=== PATIENT | female | born 1935 | race Caucasian/White ===

== ENCOUNTER 2016-02-17 22:59 | Emergency (ER) | payer OTHER ==
[~2016-02-17] VITALS: Ht 154.9 cm; Wt 56.0 kg
[~2016-02-17 22:59] MED LIST: ASPI1TAB91 PO; ATOR10TA15 PO; CALC0.25 PO; CLON.2 PO; DOCU100C PO; FENO54TA PO; FERR325T PO; FLUO1TAB3 PO; FLUT1SPR5 EACH NARE; HYDR-3516 PO; LEVO100T5 PO; LOSA100T PO; LUTE20CA PO; METO25TA6 PO; MORP1TAB24 PO; MULT1TAB PO; NIFE90TA2 PO; OMEP40CA2 PO; PRED20 PO; PROC10003 SQ; SENN8.6T8 PO; SUCR1TAB PO; TRAD5TAB PO; VENTAER INH; ZOFR4TAB PO
[2016-02-17 23:02] VITALS: BP 205/104; PULSE 73; RESP 20; TEMP 98.1; O2SAT 95
[2016-02-18] MEDS ORDERED: SODIUM CHLORIDE 0.9% FLUSH 5 ML FLUSH IVF PRN (02:45)
[2016-02-18 03:17] LABS: BLOOD, URINE TRACE (NEG); COMMENT (UR) CULT NOT INDICATED; CULTURE IF INDICATED CULT NOT INDICATED; GLUCOSE,URINE NEG (NEG); HYALINE CAST, URINE 1 /lpf (RARE); KETONE, URINE NEG (NEG); NITRITE,URINE NEG (NEG); PH, URINE 5.5 (5.0-8.5); SQUAMOUS EPITHELIAL CELL URINE <1 /hpf (0-5); URINE COLOR LIGHT-YELLOW (YELLW/STRAW)
[2016-02-18 03:20] VITALS: RESP 16; O2SAT 98
[2016-02-18 03:28] LABS: APTT (PATIENT) 28.1 SEC (24.3-30.1)
[2016-02-18 04:28] LABS: AUTOMATED NEUTROPHIL # 5.6 TH/MM3 (1.8-7.7); BASOPHIL # 0.1 TH/MM3 (0-0.2); BASOPHIL % 0.6 % (0.0-2.0); EOSINOPHIL # 0.3 TH/MM3 (0-0.4); EOSINOPHIL % 3.5 % (0.0-4.0); HEMO FLAGS DIFF FINAL; LYMPH % 14.3 % (9.0-44.0); LYMPHOCYTE # 1.2 TH/MM3 (1.0-4.8); MEAN CELL VOLUME 93.2 FL (80.0-100.0); MEAN CORPUSCULAR HEMOGLOBIN 30.1 PG (27.0-34.0); MEAN CORPUSCULAR HGB CONC 32.3 % (32.0-36.0); MONO % 12.2 % (0.0-8.0); NEUT % 69.4 % (16.0-70.0); PLATELET COUNT 284 TH/MM3 (150-450); RED CELL DISTRIBUTION WIDTH 15.1 % (11.6-17.2); WHITE BLOOD COUNT 8.1 TH/MM3 (4.0-11.0)
[2016-02-18 04:40] LABS: ANION GAP 9 MEQ/L (5-15); AST (GOT) 25 U/L (15-37); BICARBONATE 25.8 MEQ/L (21.0-32.0); BLOOD UREA NITROGEN 22 MG/DL (7-18); CHLORIDE 98 MEQ/L (98-107); GLOMERULAR FILTRATION RATE 13 ML/MIN (>89); POTASSIUM 3.8 MEQ/L (3.5-5.1); SODIUM (NA) 133 MEQ/L (136-145)
[2016-02-18 04:49] LABS: ALKALINE PHOSPHATASE 85 U/L (45-117); ALT (GPT) 15 U/L (10-53); TOTAL BILIRUBIN ADULT 0.3 MG/DL (0.2-1.0)
--- NOTE | 2016-02-18 04:57 | PD ---
HPI Chief Complaint: GI Complaint Time Seen by Provider: 02:32 Travel History International Travel<30 days: No Contact w/Intl Traveler<30days: No Traveled to known affect area: No History of Present Illness HPI The patient is an 80 year old female who presents to the [facility] emergency department with a history of abdominal pain that she reports is "the worst pain that she's ever had." The pain is present in the right upper quadrant of the abdomen. On further questioning the patient reports that she did undergo a laparoscopic cholecystectomy on February 06 in the care of Dr. Brice felt well. She reports the pain is similar in location, however it is not exacerbated by eating like that pain worse. She reports that she's had this pain since the surgery. She reports that she last took morphine yesterday for the pain. She reports that her family is not giving her pain medication like they were previously as her has been reports that it makes her confused. She denies having any nausea, vomiting, or diarrhea associated with this. She reports that she last moved her bowels 2 days ago. She denies having any blood in her stool or black or tarry stools. The patient reports that she does continue to produce a small amount of urine, however since June 2015 she has been on hemodialysis. The patient reports that she last had hemodialysis on Wednesday. The patient denies any recent fevers cough, congestion, neck pain, chest pain, shortness of breath, vomiting, diarrhea, urinary symptoms, or neurologic symptoms. [facility] Past Medical History Narrative Medical The patient's past medical history is significant for hypertension, hyperlipidemia, type 2 diabetes mellitus, COPD, congestive heart failure, end- stage renal disease, acid reflux, depression, hypothyroid disorder. Hx Anticoagulant Therapy: Yes Asthma: No Blood Disorders: No Anxiety: No Depression: Yes Heart Rhythm Problems: No Cancer: No Cardiovascular Problems: Yes (HTN, CHF) High Cholesterol: Yes Chest Pain: No Congestive Heart Failure: Yes COPD: Yes Diabetes: Yes Patient Takes Glucophage: Yes Dialysis: Yes (, , ) Diminished Hearing: No Diverticulitis: Yes Endocrine: Yes Gastrointestinal Disorders: Yes (ACID REFLUX) Genitourinary: Yes (ESRD) Hepatitis: No Hiatal Hernia: No Hypertension: Yes Immune Disorder: No Musculoskeletal: Yes (CARPAL TUNNEL LT.; ARTHRITIS) Neurologic: No Psychiatric: Yes (DEPRESSION) Reproductive: No Respiratory: Yes (COPD) Renal Failure: Yes (ESRD) Sleep Apnea: No Thyroid Disease: Yes (HYPOTHYROIDISM) Triglycerides - High: Yes Tetanus Vaccination: Unknown Influenza Vaccination: Yes : 5 Para: 5 Miscarriage: 0 : 0 Tubal Ligation: Yes Past Surgical History Narrative Surgical The patient's past surgical history is significant for colon resection and hernia repair, lysis of adhesions, AV fistula placement left upper extremity. The patient currently has vas cath access in place in the right upper chest for dialysis access. Abdominal Surgery: Yes (COLON RESECTION, HERNIA REPAIR, LYSIS OF ADHESIONS) AICD: No Appendectomy: Yes Arteriovenous Shunt: Yes (R CHEST ) Body Medical Devices: TITANIUM IN COLON ? Cholecystectomy: Yes Joint Replacement: No Pacemaker: No Thoracic Surgery: Yes (lt fistula ) Other Surgery: Yes (L WRIST ) Social History Alcohol Use: Yes (rare) Tobacco Use: No Substance Use: No Allergies-Medications (Allergen,Severity, Reaction): Coded Allergies: Contrast Media (Verified Allergy, Severe, Hives, 02/17/16) Flagyl (Verified Allergy, Severe, DIFFICULTY BREATHING, EXTREME NAUSEA, VOMITING, 02/17/16) Ativan (Verified Allergy, Intermediate, STOMACH UPSET, 02/17/16) Codeine (Verified Allergy, Intermediate, UPSET STOMACH, 02/17/16) Darvocet-N 100 (Verified Allergy, Intermediate, UPSET STOMACH, 02/17/16) Darvon (Verified Allergy, Intermediate, UPSET STOMACH, 02/17/16) Lopid (Verified Allergy, Intermediate, STOMACH UPSET, 02/17/16) Lovastatin (Verified Allergy, Intermediate, STOMACH UPSET, 02/17/16) Questran (Verified Allergy, Intermediate, STOMACH UPSET, 02/17/16) Welchol (Verified Allergy, Intermediate, STOMACH UPSET, 02/17/16) Reported Meds & Prescriptions Reported Meds & Active Scripts Active Zofran (Ondansetron HCl) 4 Mg Tab 4 Mg PO Q8HR PRN Docusate Sodium 100 Mg Cap 100 Mg PO BID Hydrocodone-Acetaminophen 5-325 mg Tab 1 Tab PO Q4H PRN Hydrocodone-Acetaminophen 5-325 mg Tab 1 Tab PO Q4H PRN Reported Morphine ER (Morphine Sulfate) 15 Mg Tab 15 Mg PO Q8H PRN Nifedipine ER (Nifedipine) 90 Mg Tab 90 Mg PO DAILY Omeprazole 40 Mg Cap 40 Mg PO DAILY Sucralfate 1 Gm Tab 1 Gm PO TID on empty stomach Prednisone 20 Mg Tab 20 Mg PO DAILY Losartan (Losartan Potassium) 100 Mg Tab 100 Mg PO DAILY Levothyroxine (Levothyroxine Sodium) 100 Mcg Tab 100 Mcg PO DAILY Tradjenta (Linagliptin) 5 Mg Tab 5 Mg PO DAILY Flonase Allergy Relief Nasal [place] (Fluticasone Nasal [place]) 50 Mcg/Act [place] 2 [place] EACH NARE DAILY PRN Centrum Silver Adult 50+ (Multiple Vitamins W/ Minerals) 1 Tab Tab 1 Tab PO AC LUNCH Senna S (Sennosides-Docusate Sodium) 8.6-50 Mg Tab 4 Tab PO HS Lutein 20 Mg Cap 20 Mg PO DAILY Ferrous Sulfate 325 Mg Tab 325 Mg PO BID Procrit Inj (Epoetin Rohan) 10,000 Unit/Ml Inj 10,000 Units SQ 3XWEEK Fluoxetine (Fluoxetine HCl) 20 Mg Tab 20 Mg PO HS Fenofibrate 54 Mg Tab 54 Mg PO AC LUNCH Catapres (Clonidine) 0.2 Mg Tab 0.2 Mg PO Q8HR Atorvastatin (Atorvastatin Calcium) 10 Mg Tab 10 Mg PO HS Calcitriol 0.25 Mcg Cap 0.25 Mcg PO DAILY Aspirin Adult Low Strength (Aspirin) 81 Mg Tabdr 81 Mg PO DAILY Ventolin Hfa 18 GM Inh (Albuterol Sulfate) 90 Mcg/Act Aer 2 Puff INH Q4H PRN Zofran (Ondansetron HCl) 4 Mg Tab 4 Mg PO Q8HR PRN Metoprolol Succinate ER 24 HR (Metoprolol Succinate) 25 Mg Tab 25 Mg PO DAILY Review of Systems Except as stated in HPI: all other systems reviewed are Neg General / Constitutional: No: Fever Eyes: No: Visual changes HENT: No: Headaches Cardiovascular: No: Chest Pain or Discomfort Respiratory: No: Shortness of Breath Gastrointestinal: Positive: Abdominal Pain, No: Nausea, Vomiting, Diarrhea, Constipation, Changes in Bowel Habits, Indigestion, Loss of Appetite Genitourinary: No: Dysuria Musculoskeletal: No: Pain Skin: No Rash Neurologic: No: Weakness Psychiatric: No: Depression Endocrine: No: Polydipsia Hematologic/Lymphatic: No: Easy Bruising Physical Exam Narrative General: The patient is a well-developed well-nourished female in no acute distress. Head and Neck exam: Head is normocephalic atraumatic. Eyes: Pupils are equal round and reactive to light. Nose: Midline septum with pink mucous membranes Mouth: Dentition unremarkable. Moist mucus membranes. Posterior oropharynx is not erythematous. No tonsillar hypertrophy. Uvula midline. Airway patent. Neck: No palpable lymphadenopathy. No nuchal rigidity. No thyromegaly. Cardiovascular: On examination of the right upper chest wall the patient has a Vas-Cath in place that appears to be in good repair with a clean, dry, and intact bandage in place. The patient has no surrounding erythema or drainage from the site. No tenderness or swelling noted. Regular rate and rhythm without murmurs, gallops, or rubs. Lungs: Clear to auscultation bilaterally. No wheezes, rhonchi, or rales. Abdomen: Soft, with minimal discomfort on palpation in the right upper quadrant of the abdomen, at the very lateral aspect, no other tenderness on palpation of the abdomen and the other 3 quadrants or midepigastric area. No guarding, rebound, or rigidity. Negative [place] sign. The patient's incisions from laparoscopic surgery appear to be healing well without any signs of infection. Extremities: No clubbing, cyanosis, or edema. 2+ pulses in all 4 extremities. No calf tenderness on palpation. Back: No spinous process tenderness to palpation. No costovertebral angle tenderness to palpation. Neurologic Exam: Non-focal. Skin Exam: No rash noted. Intact skin that is warm and dry. Data Data Last Documented VS Vital Signs Date Time Temp Pulse Resp B/P Pulse Ox O2 Delivery O2 Flow Rate FiO2 02/18/16 03:20 16 98 Room Air 02/17/16 23:02 98.1 73 205/104 Orders Complete Blood Count With Diff (02/18/16 02:36) Comprehensive Metabolic Panel (02/18/16 02:36) Lipase (02/18/16 02:36) Lactic Acid (02/18/16 02:36) Prothrombin Time / Inr (Pt) (02/18/16 02:36) Act Partial Throm Time (Ptt) (02/18/16 02:36) Urinalysis - C+S If Indicated (02/18/16 02:36) Iv Access Insert/Monitor (02/18/16 02:36) Ecg Monitoring (02/18/16 02:36) Oximetry (02/18/16 02:36) Sodium Chloride 0.9% Flush (Ns Flush) (02/18/16 02:45) Electrocardiogram (02/18/16 02:36) Ct Abd/Pel W/O Iv Contrast (02/18/16 03:35) Ondansetron Inj (Zofran Inj) (02/18/16 06:00) Acetamin-Hydrocod 325-5 Mg ([place] 5-325 (02/18/16 06:00) Labs Laboratory Tests Test 02/18/16 02/18/16 02:55 04:10 Prothrombin Time 11.0 SEC Prothromb Time International 1.0 RATIO Ratio Activated Partial 28.1 SEC Thromboplast Time Urine Color LIGHT-YELLOW Urine Turbidity CLEAR Urine pH 5.5 Urine Specific [place] 1.004 Urine Protein 30 mg/dL Urine Glucose (UA) NEG mg/dL Urine Ketones NEG mg/dL Urine Occult Blood TRACE Urine Nitrite NEG Urine Bilirubin NEG Urine Urobilinogen LESS THAN 2.0 MG/DL Urine Leukocyte Esterase TRACE Urine RBC 1 /hpf Urine WBC 1 /hpf Urine Squamous Epithelial <1 /hpf Cells Urine Hyaline Casts 1 /lpf Microscopic Urinalysis Comment CULT NOT INDICATED Lactic Acid Level 0.4 mmol/L White Blood Count 8.1 TH/MM3 Red Blood Count 3.00 MIL/MM3 Hemoglobin 9.0 GM/DL Hematocrit 28.0 % Mean Corpuscular Volume 93.2 FL Mean Corpuscular Hemoglobin 30.1 PG Mean Corpuscular Hemoglobin 32.3 % Concent Red Cell Distribution Width 15.1 % Platelet Count 284 TH/MM3 Mean Platelet Volume 7.4 FL Neutrophils (%) (Auto) 69.4 % Lymphocytes (%) (Auto) 14.3 % Monocytes (%) (Auto) 12.2 % Eosinophils (%) (Auto) 3.5 % Basophils (%) (Auto) 0.6 % Neutrophils # (Auto) 5.6 TH/MM3 Lymphocytes # (Auto) 1.2 TH/MM3 Monocytes # (Auto) 1.0 TH/MM3 Eosinophils # (Auto) 0.3 TH/MM3 Basophils # (Auto) 0.1 TH/MM3 CBC Comment DIFF FINAL Differential Comment Sodium Level 133 MEQ/L Potassium Level 3.8 MEQ/L Chloride Level 98 MEQ/L Carbon Dioxide Level 25.8 MEQ/L Anion Gap 9 MEQ/L Blood Urea Nitrogen 22 MG/DL Creatinine 3.48 MG/DL Estimat Glomerular Filtration 13 ML/MIN Rate Random Glucose 68 MG/DL Calcium Level 8.7 MG/DL Total Bilirubin 0.3 MG/DL Aspartate Amino Transf 25 U/L (AST/SGOT) Alanine Aminotransferase 15 U/L (ALT/SGPT) Alkaline Phosphatase 85 U/L Total Protein 5.9 GM/DL Albumin 2.5 GM/DL Lipase 141 U/L MDM Medical Decision Making Medical Screen Exam Complete: Yes Emergency Medical Condition: Yes Medical Record Reviewed: Yes Differential Diagnosis Postop abscess formation, versus ileus, versus pancreatitis, versus pyelonephritis, versus kidney stone Narrative Course During the course of the patients emergency department visit, the patients history, examination, and differential diagnosis were reviewed with the patient. The patient had IV access obtained and blood work sent for analysis. The patient was placed on a monitor worker with oximetry and blood pressure monitoring. The patient was provided Lortab for pain. after CT scan of the abdomen and pelvis showed no acute abnormality, Zofran for nausea. The patients laboratory studies were reviewed and remarkable for a white count of 8.1, hemoglobin 9.0 and a patient with a history of anemia related to chronic renal failure, platelets 284, monocytes 12.2, PT PTT unremarkable, CMP is marked bulbar sodium of 133, BUN 22, creatinine 3.48, glucose 68, lactic acid 0.4, lipase 141, PT PTT unremarkable. Urinalysis is unremarkable. 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 The patient's results were discussed with her and her family. The patient was resting comfortably. The patient was instructed regarding the importance of following up with her surgeon. She reports that she has a follow-up appointment scheduled in a week. The patient's family reports that she gets confused on morphine, therefore this was discontinued for her pain. She has been on Lortab in the past and tolerated this well. She was given a short supply of this for pain. She was also given Zofran for nausea. The patient is resting comfortably and feels better, is alert and in no distress. The patients results and examination findings were discussed with her and her . The repeat examination is unremarkable and benign. The history, exam, diagnostic testing, and current condition do not suggest any significant pathology to warrant further testing, continued ED treatment, admission, or surgical evaluation at this point. The vital signs have been stable. The patient does not have uncontrollable pain, intractable vomiting, or other significant symptoms. The patient's condition is stable and appropriate for discharge. The patient will pursue further outpatient evaluation with a primary care physician or other designated or consulting physician as indicated in the discharge instructions. The patient expressed understanding and was agreeable with this plan. Diagnosis Primary Impression: Abdominal pain Qualified Code: R10.11 - Right upper quadrant abdominal pain Referrals: Alton Conde MD 1 week Primary Care Physician Patient Instructions: Abdominal Pain (ED), General Instructions Med/Other Pt SpecificInfo: Prescription(s) given Scripts Ondansetron Odt (Zofran Odt)4 Mg Tab4 Mg SL Q6HR PRN (Nausea/Vomiting) #7 TAB Ref 0 Prov:Kimberlyn Smith MD 02/18/16 Hydrocodone-Acetaminophen (Lortab)5-325 Mg Tab1 Tab PO Q6H PRN (PAIN) #12 TAB Ref 0 Prov:Kimberlyn Smith MD 02/18/16 Disposition: 01 DISCHARGE HOME Condition: Stable Kimberlyn Smith MD Feb 18, 2016 04:57
--- NOTE | 2016-02-18 05:45 | RADRPT ---
EXAM DATE/TIME: 02/18/2016 04:01 [place] COMPARISON: CT ABDOMEN & PELVIS W/O CONTRAST, January 28, 2016, 11:24. INDICATIONS : Right flank and upper quadrant abdominal pain; status-post lap cholecystectomy 02/07/2016. ORAL CONTRAST: No oral contrast ingested. RADIATION DOSE: 7.77 CTDIvol (mGy) MEDICAL HISTORY : Hypertension. Cardiovascular disease Gastroesophageal reflux disease.Diverticulitis; hernia; renal fa ilure; diabetes. SURGICAL HISTORY : Appendectomy. Cholecystectomy.Colon resection.Tubal ligation. ENCOUNTER: Initial ACUITY: 1 week PAIN SCALE: 10/10 LOCATION: Right upper quadrant flank abdomen/pelvis TECHNIQUE: Volumetric scanning of the abdomen and pelvis was performed. Using automated exposure control and ad justment of the mA and/or kV according to patient size, radiation dose was kept as low as reasonably achievable to obtain optimal diagnostic quality images. FINDINGS: LOWER LUNGS: Tiny bilateral pleural effusions. Moderate cardiomegaly with tiny pericardial effusion. LIVER: Since the previous examination there has been cholecystectomy. No fluid collection or hematoma observ ed. The liver is unremarkable. SPLEEN: Normal size without lesion. A 1.6 cm saccular aneurysm is seen involving the splenic artery. This is stable. PANCREAS: Within normal limits. KIDNEYS: Normal in size and shape. There is no mass, stone, or hydronephrosis. ADRENAL GLANDS: Within normal limits. VASCULAR: Diffuse calcified plaque throughout the aorta and major branches. No aneurysmal change observed. BOWEL/MESENTERY: Multiple diverticular seen involving the duodenum. The stomach, small bowel, and colon are otherwise unremarkable on this unopacified study. Trace amount of ascitic fluid is seen within the left paracol ic gutter. ABDOMINAL WALL: Within normal limits. RETROPERITONEUM: There is no lymphadenopathy. BLADDER: No wall thickening or mass. REPRODUCTIVE: Within normal limits. INGUINAL: There is no lymphadenopathy or hernia. MUSCULOSKELETAL: Scoliotic and degenerative spine. Prior cement augmentation at L1. CONCLUSION: 1. Interval cholecystectomy. No abscess or fluid collection. 2. Tiny bilateral pleural effusions. 3. Cardiomegaly. 4. Stable splenic artery aneurysm measuring 1.6 cm. Shashi Olson Jr., MD on February 18, 2016 at 5:38 Board Certified Radiologist. This report was verified electronically.
[2016-02-18] MEDS ORDERED: ONDANSETRON HCL 4 MG/2 ML VIAL IV ONE (06:00)
[2016-02-18] MEDS ORDERED: ACETAMINOPHEN/HYDROcodone 325 MG/5 MG TAB PO ONE (06:00)
[2016-02-18] MEDS ORDERED: ZOFR4TAB3 SL (07:07)
[2016-02-18] MEDS ORDERED: HYDR-3533 PO (07:07)
== END 2016-02-18 07:24 | disposition home or self-care (01) ==
LOC: NEPE 22:59
DX: R10.11 Right upper quadrant pain (principal); E11.9 Type 2 diabetes mellitus without complications; I12.0 Hypertensive chronic kidney disease with stage 5 chronic kidney disease or end stage renal disease; J44.9 Chronic obstructive pulmonary disease, unspecified; E03.9 Hypothyroidism, unspecified; K21.9 Gastro-esophageal reflux disease without esophagitis
CPT/HCPCS: 74176; 80053; 81001; 83605; 83690; 85025; 85610; 85730; 96374; 99284; J2405

== ENCOUNTER 2016-02-18 10:47 | Emergency (ER) | payer OTHER ==
[~2016-02-18] VITALS: Ht 154.9 cm; Wt 50.0 kg
[~2016-02-18 10:47] MED LIST changes: +HYDR-3533 PO; +ZOFR4TAB3 SL
[2016-02-18 10:49] VITALS: BP 235/97; PULSE 87; RESP 14; TEMP 98.2; O2SAT 95
--- NOTE | 2016-02-18 11:57 | PD ---
HPI Chief Complaint: Pain: Acute or Chronic Time Seen by Provider: 11:34 Travel History International Travel<30 days: No Contact w/Intl Traveler<30days: No Traveled to known affect area: No History of Present Illness HPI This patient has chronic right upper quadrant abdominal pain. She's had it almost 2 years on a daily basis. She had a cholecystectomy February 06 and is frustrated that her pain is no better. Not any worse than it was before the surgery. She denies fever. She doesn't want to eat much because she gets nauseous when she eats. She was seen here this morning and left chest 4 hours ago from the emergency department after extensive workup including labs and CT of abdomen and pelvis which was negative for acute problem. She went to dialysis and part of the way through dialysis the patient left to come back here. The patient tells me that her surgeon's nurse called dialysis and wanted her to get sent back here but the patient does not know any details. This sounds a little hard to believe but I'm going to call the surgeon to see if he knows anything about this. Symptoms severity is moderate and chronic and duration is about 2 years. No alleviating factors. PFSH Past Medical History Hx Anticoagulant Therapy: Yes Asthma: No Blood Disorders: No Anxiety: No Depression: Yes Heart Rhythm Problems: No Cancer: No Cardiovascular Problems: Yes (HTN, CHF) High Cholesterol: Yes Chest Pain: No Congestive Heart Failure: Yes COPD: Yes Diabetes: Yes Dialysis: Yes (, , sa) Diminished Hearing: No Diverticulitis: Yes Endocrine: Yes Gastrointestinal Disorders: Yes (ACID REFLUX) Genitourinary: Yes (ESRD) Hepatitis: No Hiatal Hernia: No Hypertension: Yes Immune Disorder: No Musculoskeletal: Yes (CARPAL TUNNEL LT.; ARTHRITIS) Neurologic: No Psychiatric: Yes (DEPRESSION) Reproductive: No Respiratory: Yes (COPD) Renal Failure: Yes (ESRD) Sleep Apnea: No Thyroid Disease: Yes (HYPOTHYROIDISM) Triglycerides - High: Yes : 5 Para: 5 Miscarriage: 0 : 0 Tubal Ligation: Yes Past Surgical History Abdominal Surgery: Yes (COLON RESECTION, HERNIA REPAIR, LYSIS OF ADHESIONS) AICD: No Appendectomy: Yes Arteriovenous Shunt: Yes (R CHEST ) Body Medical Devices: TITANIUM IN COLON ? Cholecystectomy: Yes Joint Replacement: No Pacemaker: No Thoracic Surgery: Yes (lt fistula ) Other Surgery: Yes (L WRIST ) Social History Alcohol Use: Yes (rare) Tobacco Use: No Substance Use: No Allergies-Medications (Allergen,Severity, Reaction): Coded Allergies: Contrast Media (Verified Allergy, Severe, Hives, 02/18/16) Flagyl (Verified Allergy, Severe, DIFFICULTY BREATHING, EXTREME NAUSEA, VOMITING, 02/18/16) Ativan (Verified Allergy, Intermediate, STOMACH UPSET, 02/18/16) Codeine (Verified Allergy, Intermediate, UPSET STOMACH, 02/18/16) Darvocet-N 100 (Verified Allergy, Intermediate, UPSET STOMACH, 02/18/16) Darvon (Verified Allergy, Intermediate, UPSET STOMACH, 02/18/16) Lopid (Verified Allergy, Intermediate, STOMACH UPSET, 02/18/16) Lovastatin (Verified Allergy, Intermediate, STOMACH UPSET, 02/18/16) Questran (Verified Allergy, Intermediate, STOMACH UPSET, 02/18/16) Welchol (Verified Allergy, Intermediate, STOMACH UPSET, 02/18/16) Reported Meds & Prescriptions Reported Meds & Active Scripts Active Zofran Odt (Ondansetron Odt) 4 Mg Tab 4 Mg SL Q6HR PRN Hydrocodone-Acetaminophen 5-325 mg Tab 1 Tab PO Q4H PRN Reported Morphine ER (Morphine Sulfate) 15 Mg Tab 15 Mg PO Q8H PRN Nifedipine ER (Nifedipine) 90 Mg Tab 90 Mg PO DAILY Omeprazole 40 Mg Cap 40 Mg PO DAILY Sucralfate 1 Gm Tab 1 Gm PO TID on empty stomach Prednisone 20 Mg Tab 20 Mg PO DAILY Losartan (Losartan Potassium) 100 Mg Tab 100 Mg PO DAILY Levothyroxine (Levothyroxine Sodium) 100 Mcg Tab 100 Mcg PO DAILY Tradjenta (Linagliptin) 5 Mg Tab 5 Mg PO DAILY Flonase Allergy Relief Nasal [place] (Fluticasone Nasal [place]) 50 Mcg/Act [place] 2 [place] EACH NARE DAILY PRN Centrum Silver Adult 50+ (Multiple Vitamins W/ Minerals) 1 Tab Tab 1 Tab PO AC LUNCH Senna S (Sennosides-Docusate Sodium) 8.6-50 Mg Tab 4 Tab PO HS Lutein 20 Mg Cap 20 Mg PO DAILY Ferrous Sulfate 325 Mg Tab 325 Mg PO BID Procrit Inj (Epoetin Rohan) 10,000 Unit/Ml Inj 10,000 Units SQ 3XWEEK Fluoxetine (Fluoxetine HCl) 20 Mg Tab 20 Mg PO HS Fenofibrate 54 Mg Tab 54 Mg PO AC LUNCH Catapres (Clonidine) 0.2 Mg Tab 0.2 Mg PO Q8HR Atorvastatin (Atorvastatin Calcium) 10 Mg Tab 10 Mg PO HS Calcitriol 0.25 Mcg Cap 0.25 Mcg PO DAILY Aspirin Adult Low Strength (Aspirin) 81 Mg Tabdr 81 Mg PO DAILY Ventolin Hfa 18 GM Inh (Albuterol Sulfate) 90 Mcg/Act Aer 2 Puff INH Q4H PRN Metoprolol Succinate ER 24 HR (Metoprolol Succinate) 25 Mg Tab 25 Mg PO DAILY Review of Systems General / Constitutional: No: Fever Eyes: No: Visual changes HENT: No: Headaches Cardiovascular: No: Chest Pain or Discomfort Respiratory: No: Shortness of Breath Gastrointestinal: Positive: Nausea, Abdominal Pain Genitourinary: No: Dysuria Musculoskeletal: No: Pain Skin: No Rash Neurologic: No: Weakness Psychiatric: No: Depression Endocrine: No: Polydipsia Hematologic/Lymphatic: No: Easy Bruising Physical Exam Narrative GENERAL: Well-nourished, well-developed patient in no apparent distress. SKIN: Warm and dry. HEAD: Atraumatic. Normocephalic. EYES: Pupils equal and round. No scleral icterus. No injection or drainage. ENT: No nasal bleeding or discharge. Mucous membranes pink and moist. NECK: Trachea midline. No JVD. CARDIOVASCULAR: Regular rate and rhythm. No murmur appreciated. RESPIRATORY: No accessory muscle use. Clear to auscultation. Breath sounds equal bilaterally. GASTROINTESTINAL: Abdomen soft, has some right upper quadrant tenderness without rebound or guarding , nondistended. Hepatic and splenic margins not palpable. MUSCULOSKELETAL: No obvious deformities. No clubbing. No cyanosis. No edema. Has a right upper chest Vas-Cath NEUROLOGICAL: Awake and alert. No obvious cranial nerve deficits. Motor grossly within normal limits. Normal speech. PSYCHIATRIC: Appropriate mood and affect; insight and judgment normal. Data Data Last Documented VS Vital Signs Date Time Temp Pulse Resp B/P Pulse Ox O2 Delivery O2 Flow Rate FiO2 02/18/16 12:00 86 18 223/88 98 Room Air 02/18/16 10:49 98.2 Orders Clonidine (Catapres) (02/18/16 12:00) Nifedipine (Procardia) (02/18/16 12:00) Ondansetron Odt (Zofran Odt) (02/18/16 12:45) MDM Medical Decision Making Medical Screen Exam Complete: Yes Emergency Medical Condition: Yes Medical Record Reviewed: Yes Differential Diagnosis Chronic abdominal pain, postoperative pain, fibromyalgia Narrative Course I have reviewed the patient's electronic medical record. I reviewed her extensive workup from this morning I don't feel repeating this workup would be helpful in any way. She does have accelerated hypertension I gave her dose of clonidine and Procardia and will reassess her pressure. I placed a call to the general surgeon to see if he requested her to come back here or not I discussed the situation in detail with general surgeon Their office did not realize that she had just left the emergency room and would not have sent her back here if they had known that. He will see her in the office in follow-up Before I could get her blood pressure rechecked the got a wheelchair and wheeled her out and they left AGAINST MEDICAL ADVICE I did not realize they wanted to leave and she did not say anything to anybody that I am aware of Diagnosis Primary Impression: Abdominal pain, chronic, right upper quadrant Additional Impression: Accelerated hypertension Disposition: 07 AGAINST MEDICAL ADVICE Chidi Garg MD Feb 18, 2016 11:57
[2016-02-18 12:00] VITALS: BP 223/88; PULSE 86; RESP 18; O2SAT 98
[2016-02-18] MEDS: NIFEdipine 10 MG CAP PO ONE ×2 (12:00→12:43)
[2016-02-18] MEDS ORDERED: cloNIDine HCL 0.2 MG TAB PO ONE (12:00)
[2016-02-18] MEDS ORDERED: ONDANSETRON ODT 4 MG TAB PO ONE (12:45)
== END 2016-02-18 13:47 | disposition left against medical advice (07) ==
LOC: NEPC 10:47
DX: R10.11 Right upper quadrant pain (principal); E11.22 Type 2 diabetes mellitus with diabetic chronic kidney disease; N18.6 End stage renal disease; I12.0 Hypertensive chronic kidney disease with stage 5 chronic kidney disease or end stage renal disease; Z79.01 Long term (current) use of anticoagulants; E78.00 Pure hypercholesterolemia, unspecified; Z99.2 Dependence on renal dialysis; I50.9 Heart failure, unspecified
CPT/HCPCS: 99283

== ENCOUNTER 2016-07-04 09:49 | Inpatient (IN) | payer OTHER, MEDICARE ==
[2016-07-04] VITALS (12 sets, daily range): BP systolic 151–185; BP diastolic 64–87; PULSE 18–89; RESP 20–42; TEMP 97.8–99.3; O2SAT 64–100
[~2016-07-04] VITALS: Ht 162.6 cm; Wt 55.5 kg
[~2016-07-04 09:49] MED LIST changes: -DOCU100C PO; -HYDR-3533 PO; -ZOFR4TAB PO
[2016-07-04] MEDS ORDERED: methylPREDNISolone SOD SUCC 125 MG/2 ML VIAL IVP ONE (10:15)
[2016-07-04] MEDS ORDERED: ONDANSETRON HCL 4 MG/2 ML VIAL ONE (10:22)
[2016-07-04] MEDS: RESP: ALBUTEROL 2.5 MG/IPRATROPIUM 0.5 MG NEB (SCH) INH ×3 (10:23→10:36)
--- NOTE | 2016-07-04 10:25 | PD ---
HPI Chief Complaint: Respiratory Symptoms Time Seen by Provider: 10:01 Travel History International Travel<30 days: No Contact w/Intl Traveler<30days: No Traveled to known affect area: No History of Present Illness HPI 81yo F with PMH of small cell CA, COPD not on home O2, ESRD presents to the ED with c/o sob since last night. Pt was saturating in the 60s. Pt with bilateral wheezing. Denies any fever, chest pain, n/v, abdominal pain, focal weakness or numbness. Pt finished radiation therapy and follows with Dr. Gonsalez. [facility] Past Medical History Hx Anticoagulant Therapy: Yes Asthma: No Blood Disorders: No Anxiety: No Depression: Yes Heart Rhythm Problems: No Cancer: No Cardiovascular Problems: Yes (HTN, CHF) High Cholesterol: Yes Chest Pain: No Congestive Heart Failure: Yes COPD: Yes Diabetes: Yes Patient Takes Glucophage: No Dialysis: Yes (Wed) Diminished Hearing: No Diverticulitis: Yes Endocrine: Yes Gastrointestinal Disorders: Yes (ACID REFLUX) Genitourinary: Yes (ESRD) Hepatitis: No Hiatal Hernia: No Hypertension: Yes Immune Disorder: No Medical other: Yes (ANEMIA) Musculoskeletal: Yes (CARPAL TUNNEL LT.; ARTHRITIS) Neurologic: No Psychiatric: Yes (DEPRESSION) Reproductive: No Respiratory: Yes (COPD) Renal Failure: Yes (ESRD) Sleep Apnea: No Thyroid Disease: Yes (HYPOTHYROIDISM) Triglycerides - High: Yes : 5 Para: 5 Miscarriage: 0 : 0 Tubal Ligation: Yes Past Surgical History Abdominal Surgery: Yes (COLON RESECTION, HERNIA REPAIR, LYSIS OF ADHESIONS) AICD: No Appendectomy: Yes Arteriovenous Shunt: Yes (R CHEST ) Body Medical Devices: TITANIUM IN COLON ? Cholecystectomy: Yes (JAN 2016 ) Joint Replacement: No Pacemaker: No Thoracic Surgery: Yes (lt fistula ) Other Surgery: Yes (L WRIST ) Social History Alcohol Use: No Tobacco Use: No Substance Use: No Allergies-Medications (Allergen,Severity, Reaction): Coded Allergies: Contrast Media (Verified Allergy, Severe, Hives, 07/04/16) Flagyl (Verified Allergy, Severe, DIFFICULTY BREATHING, EXTREME NAUSEA, VOMITING, 07/04/16) Ativan (Verified Adverse Reaction, Intermediate, STOMACH UPSET, 07/04/16) Codeine (Verified Adverse Reaction, Intermediate, UPSET STOMACH, 07/04/16) Darvocet-N 100 (Verified Adverse Reaction, Intermediate, UPSET STOMACH, ) Darvon (Verified Adverse Reaction, Intermediate, UPSET STOMACH, 07/04/16) Lopid (Verified Adverse Reaction, Intermediate, STOMACH UPSET, 07/04/16) Lovastatin (Verified Adverse Reaction, Intermediate, STOMACH UPSET, ) Questran (Verified Adverse Reaction, Intermediate, STOMACH UPSET, 07/04/16) Welchol (Verified Adverse Reaction, Intermediate, STOMACH UPSET, 07/04/16) Reported Meds & Prescriptions Reported Meds & Active Scripts Active Zofran Odt (Ondansetron Odt) 4 Mg Tab 4 Mg SL Q6HR PRN Hydrocodone-Acetaminophen 5-325 mg Tab 1 Tab PO Q4H PRN Reported Morphine ER (Morphine Sulfate) 15 Mg Tab 15 Mg PO Q8H PRN Nifedipine ER (Nifedipine) 90 Mg Tab 90 Mg PO DAILY Omeprazole 40 Mg Cap 40 Mg PO DAILY Sucralfate 1 Gm Tab 1 Gm PO TID on empty stomach Prednisone 20 Mg Tab 20 Mg PO DAILY Losartan (Losartan Potassium) 100 Mg Tab 100 Mg PO DAILY Levothyroxine (Levothyroxine Sodium) 100 Mcg Tab 100 Mcg PO DAILY Tradjenta (Linagliptin) 5 Mg Tab 5 Mg PO DAILY Flonase Nasal [place] (Fluticasone Nasal [place]) 50 Mcg/Act [place] 2 [place] EACH NARE DAILY PRN Centrum Silver Adult 50+ (Multiple Vitamins W/ Minerals) 1 Tab Tab 1 Tab PO AC LUNCH Senna S (Sennosides-Docusate Sodium) 8.6-50 Mg Tab 4 Tab PO HS Lutein 20 Mg Cap 20 Mg PO DAILY Ferrous Sulfate 325 Mg Tab 325 Mg PO BID Fluoxetine (Fluoxetine HCl) 20 Mg Tab 20 Mg PO HS Fenofibrate 54 Mg Tab 54 Mg PO AC LUNCH Catapres (Clonidine) 0.2 Mg Tab 0.2 Mg PO Q8HR Atorvastatin (Atorvastatin Calcium) 10 Mg Tab 10 Mg PO HS Calcitriol 0.25 Mcg Cap 0.25 Mcg PO DAILY Aspirin Adult Low Strength (Aspirin) 81 Mg Tabdr 81 Mg PO DAILY Ventolin Hfa 18 GM Inh (Albuterol Sulfate) 90 Mcg/Act Aer 2 Puff INH Q4H PRN Metoprolol Succinate ER 24 HR (Metoprolol Succinate) 25 Mg Tab 25 Mg PO DAILY Review of Systems Except as stated in HPI: all other systems reviewed are Neg Physical Exam Narrative GENERAL: 81yo SKIN: Focused skin assessment warm/dry. HEAD: Atraumatic. Normocephalic. EYES: Pupils equal and round. No scleral icterus. No injection or drainage. ENT: No nasal bleeding or discharge. Mucous membranes pink and moist. NECK: Trachea midline. No JVD. CARDIOVASCULAR: Regular rate and rhythm. No murmur appreciated. RESPIRATORY: + accessory muscle use. Expiratory wheezing. Crackles bilateral base. GASTROINTESTINAL: Abdomen soft, non-tender, nondistended. Hepatic and splenic margins not palpable. MUSCULOSKELETAL: No obvious deformities. No clubbing. No cyanosis. No edema. NEUROLOGICAL: Awake and alert. No obvious cranial nerve deficits. Motor grossly within normal limits. Normal speech. PSYCHIATRIC: Appropriate mood and affect; insight and judgment normal. Data Data Last Documented VS Vital Signs Date Time Temp Pulse Resp B/P Pulse Ox O2 Delivery O2 Flow Rate FiO2 07/04/16 12:07 89 20 174/79 96 Nasal Cannula 3 07/04/16 10:03 55 07/04/16 09:51 99.3 Orders Complete Blood Count With Diff (07/04/16 10:03) Basic Metabolic Panel (Bmp) (07/04/16 10:03) Act Partial Throm Time (Ptt) (07/04/16 10:03) Prothrombin Time / Inr (Pt) (07/04/16 10:03) Ckmb (Isoenzyme) Profile (07/04/16 10:03) Troponin I (07/04/16 10:03) Arterial Blood Gas (Abg) (07/04/16 10:03) Blood Culture (07/04/16 10:03) Iv Access Insert/Monitor (07/04/16 10:03) Electrocardiogram (07/04/16 10:03) Ecg Monitoring (07/04/16 10:03) Oximetry (07/04/16 10:03) Oxygen Administration (07/04/16 10:03) Chest, Single Ap (07/04/16 10:03) Methylprednisolone So Succ Inj (Solumedr (07/04/16 10:15) Albuterol-Ipratropium Neb (Duoneb Neb) (07/04/16 10:15) Resp Bipap / Cpap Non Invas Vt (07/04/16 10:03) Ondansetron Inj (Zofran Inj) (07/04/16 10:30) Ondansetron Inj (Zofran Inj) (07/04/16 10:22) Admit Order (Ed Use Only) (07/04/16 12:29) Labs Laboratory Tests Test 07/04/16 07/04/16 10:10 10:35 White Blood Count 7.7 TH/MM3 Red Blood Count 2.76 MIL/MM3 Hemoglobin 8.4 GM/DL Hematocrit 25.9 % Mean Corpuscular Volume 93.7 FL Mean Corpuscular Hemoglobin 30.4 PG Mean Corpuscular Hemoglobin 32.5 % Concent Red Cell Distribution Width 16.4 % Platelet Count 190 TH/MM3 Mean Platelet Volume 7.8 FL Neutrophils (%) (Auto) 79.4 % Lymphocytes (%) (Auto) 5.7 % Monocytes (%) (Auto) 13.5 % Eosinophils (%) (Auto) 0.7 % Basophils (%) (Auto) 0.7 % Neutrophils # (Auto) 6.1 TH/MM3 Lymphocytes # (Auto) 0.4 TH/MM3 Monocytes # (Auto) 1.0 TH/MM3 Eosinophils # (Auto) 0.1 TH/MM3 Basophils # (Auto) 0.1 TH/MM3 CBC Comment DIFF FINAL Differential Comment Prothrombin Time 10.6 SEC Prothromb Time International 1.0 RATIO Ratio Activated Partial 26.0 SEC Thromboplast Time Sodium Level 139 MEQ/L Potassium Level 4.4 MEQ/L Chloride Level 106 MEQ/L Carbon Dioxide Level 24.7 MEQ/L Anion Gap 8 MEQ/L Blood Urea Nitrogen 40 MG/DL Creatinine 2.97 MG/DL Estimat Glomerular Filtration 15 ML/MIN Rate Random Glucose 117 MG/DL Calcium Level 8.8 MG/DL Total Creatine Kinase 19 U/L Troponin I 0.03 NG/ML Blood Gas Puncture Site RT RADIAL Blood Gas Patient Temperature 98.6 Blood Gas HCO3 22 mmol/L Blood Gas Base Excess -3.1 mmol/L Blood Gas Oxygen Saturation 97 % Arterial Blood pH 7.35 Arterial Blood Partial 40 mmHg Pressure CO2 Arterial Blood Partial 136 mmHG Pressure O2 Arterial Blood Oxygen Content 14.2 Vol % Arterial Blood 1.4 % Carboxyhemoglobin Arterial Blood Methemoglobin 0.4 % Blood Gas Hemoglobin 10.2 G/DL Oxygen Delivery Device NEB TX Blood Gas Inspired Oxygen 60 % MDM Medical Decision Making Medical Screen Exam Complete: Yes Emergency Medical Condition: Yes Interpretation(s) EKG: NSR 77bpm. LAD. No ST segment elevation or depression. Differential Diagnosis COPD exacerbation vs. pleural effusion vs. malignancy vs. pneumonia Narrative Course 81yo F with COPD, small cell CA, ESRD on HD here with worsening sob since last night. Pt has missed hemodialysis last . Last HD was wednesday. Pt was saturating in the 60s when she arrived and immediately placed on BIPAP FiO2 50% with improvement. Pt was wheezing so given duonebs x3, and methylprednisolone 125mg IV. Pt reevaluated at bedside and states she feels better. She still has widespread crackles in bilateral lower lungs. States she has been coughing more since her last radiation therapy 1 week ago but denies any fever. Pt placed on 4L NC and saturating at 93%. Pt does not have oxygen at home. Labs reviewed, no leukocytosis. K: 4.4. BUN/creatinine elevated at 40/2.97. Troponin 0.03. CXR showed bilateral lung opacity with perihilar predominance suggesting asymmetric pulmonary edema. Possible superimposed infection. Small left pleural effusion. Discussed with Dr. Campbell and accepted to his service. Diagnosis Primary Impression: COPD exacerbation Additional Impression: ESRD (end stage renal disease) Admitting Information Admitting Physician Requests: Admit Vivian Hicks DO July 04, 2016 10:24
[2016-07-04] MEDS ORDERED: ONDANSETRON HCL 4 MG/2 ML VIAL IV PUSH ONE (10:30)
[2016-07-04 10:38] LABS: AUTOMATED NEUTROPHIL # 6.1 TH/MM3 (1.8-7.7); BASOPHIL # 0.1 TH/MM3 (0-0.2); BASOPHIL % 0.7 % (0.0-2.0); EOSINOPHIL # 0.1 TH/MM3 (0-0.4); EOSINOPHIL % 0.7 % (0.0-4.0); HEMATOCRIT 25.9 % (35.0-46.0); HEMO FLAGS DIFF FINAL; LYMPH % 5.7 % (9.0-44.0); LYMPHOCYTE # 0.4 TH/MM3 (1.0-4.8); MEAN CELL VOLUME 93.7 FL (80.0-100.0); MEAN CORPUSCULAR HEMOGLOBIN 30.4 PG (27.0-34.0); MEAN CORPUSCULAR HGB CONC 32.5 % (32.0-36.0); MONO % 13.5 % (0.0-8.0); NEUT % 79.4 % (16.0-70.0); PLATELET COUNT 190 TH/MM3 (150-450); RED BLOOD COUNT 2.76 MIL/MM3 (4.00-5.30); RED CELL DISTRIBUTION WIDTH 16.4 % (11.6-17.2); WHITE BLOOD COUNT 7.7 TH/MM3 (4.0-11.0)
[2016-07-04 10:54] LABS: PROTHROMBIN TIME - PATIENT 10.6 SEC (9.8-11.6)
[2016-07-04 10:56] LABS: BICARBONATE 24.7 MEQ/L (21.0-32.0); POTASSIUM 4.4 MEQ/L (3.5-5.1)
[2016-07-04 11:02] LABS: BLOOD GAS BASE EXCESS -3.1 mmol/L (-2-2); BLOOD GAS CARBOXYHEMOGLOBIN 1.4 % (0-4); BLOOD GAS HCO3 22 mmol/L (22-26); BLOOD GAS METHEMOGLOBIN 0.4 % (0-2); BLOOD GAS O2 HGB SATURATION 97 % (90-100); BLOOD GAS OXYGEN CONTENT 14.2 Vol % (12.0-20.0); BLOOD GAS PCO2 40 mmHg (38-42); BLOOD GAS PO2 136 mmHG (61-120); BLOOD GAS TOTAL HGB 10.2 G/DL (12.0-16.0); CRITICAL VALUE NO; DRAW SITE RT RADIAL; FIO2 60 %; NUMBER OF ARTERIAL PUNCTURES 1; OXYGEN DEVICE NEB TX; STAT YES; TEMP CORR TO 98.6; ULNAR PULSE PRESENT
--- NOTE | 2016-07-04 11:36 | RADRPT ---
EXAM DATE/TIME: 07/04/2016 10:14 [place] COMPARISON: CHEST SINGLE AP, February 06, 2016, 3:37. INDICATIONS : Shortness of breath MEDICAL HISTORY : Chronic obstructive pulmonary disease. Congestive heart failure. Hypercholesterolemia. Hypertension SURGICAL HISTORY : Central venous catheter placement ENCOUNTER: Initial ACUITY: 1 day PAIN SCORE: 0/10 LOCATION: Bilateral chest FINDINGS: Single AP view of the chest. Bilateral opacity with perihilar predominance left greater than right. M ild cardiac silhouette enlargement. Small left pleural effusion. CONCLUSION: Bilateral lung opacity with perihilar predominance suggesting asymmetric pulmonary edema. Possible gentile perimposed infection. Small left pleural effusion. Isac Yañez MD on July 04, 2016 at 11:24 Board Certified Radiologist. This report was verified electronically.
--- NOTE | 2016-07-04 12:38 | HHI.HP ---
H[facility] Terrell Olmstead MD Admission Diagnosis COPD exacerbation, pulmonary edema Diagnoses: Chief Complaint: Shortness of breath Travel History International Travel<30 Days: No Contact w/Intl Traveler <30 Da: No Traveled to Known Affected Are: No History of Present Illness Ms. Calderon is a pleasant 81 year old female with a history of small cell lung cancer, ESRD, COPD who presented to the ED on 07/04/2016 due to shortness of breath that started two days prior to this admission. She reports severe orthopnea. She had to sit at the side of the bed pretty much all night last night due to orthopnea. She reports increased cough but no fever, chills. She is on Wednesday, , Wednesday dialysis schedule. However, she missed her dialysis on 07/02/2016. Denies any chest pain, abdominal pain. She is currently undergoing radiation treatments and follows Dr. Gonsalez (Medical Oncologist). Upon arrival, her O2 saturation was 70%, 64% on room air. She required BiPAP in the ED. However, subsequently she tolerated nasal cannula with reasonable O2 saturation. CXR shows bilateral pulmonary edema and possible superimposed infection. Review of Systems Except as stated in HPI: all other systems reviewed are Neg Past Family Social History Past Medical History Hypertension ESRD Hypothyroidism COPD Past Surgical History Left wrist surgery, Hernia repair, Colon resection, lysis of adhesions. Reported Medications Zofran Odt (Ondansetron Odt) 4 Mg Tab 4 Mg SL Q6HR PRN Hydrocodone-Acetaminophen 5-325 mg Tab 1 Tab PO Q4H PRN Reported Morphine ER (Morphine Sulfate) 15 Mg Tab 15 Mg PO Q8H PRN Nifedipine ER (Nifedipine) 90 Mg Tab 90 Mg PO DAILY Omeprazole 40 Mg Cap 40 Mg PO DAILY Sucralfate 1 Gm Tab 1 Gm PO TID on empty stomach Prednisone 20 Mg Tab 20 Mg PO DAILY Losartan (Losartan Potassium) 100 Mg Tab 100 Mg PO DAILY Levothyroxine (Levothyroxine Sodium) 100 Mcg Tab 100 Mcg PO DAILY Tradjenta (Linagliptin) 5 Mg Tab 5 Mg PO DAILY Flonase Nasal [place] (Fluticasone Nasal [place]) 50 Mcg/Act [place] 2 [place] EACH NARE DAILY PRN Centrum Silver Adult 50+ (Multiple Vitamins W/ Minerals) 1 Tab Tab 1 Tab PO AC LUNCH Senna S (Sennosides-Docusate Sodium) 8.6-50 Mg Tab 4 Tab PO HS Lutein 20 Mg Cap 20 Mg PO DAILY Ferrous Sulfate 325 Mg Tab 325 Mg PO BID Fluoxetine (Fluoxetine HCl) 20 Mg Tab 20 Mg PO HS Fenofibrate 54 Mg Tab 54 Mg PO AC LUNCH Catapres (Clonidine) 0.2 Mg Tab 0.2 Mg PO Q8HR Atorvastatin (Atorvastatin Calcium) 10 Mg Tab 10 Mg PO HS Calcitriol 0.25 Mcg Cap 0.25 Mcg PO DAILY Aspirin Adult Low Strength (Aspirin) 81 Mg Tabdr 81 Mg PO DAILY Ventolin Hfa 18 GM Inh (Albuterol Sulfate) 90 Mcg/Act Aer 2 Puff INH Q4H PRN Metoprolol Succinate ER 24 HR (Metoprolol Succinate) 25 Mg Tab 25 Mg PO DAILY Allergies: Coded Allergies: Contrast Media (Verified Allergy, Severe, Hives, 07/04/16) Flagyl (Verified Allergy, Severe, DIFFICULTY BREATHING, EXTREME NAUSEA, VOMITING, 07/04/16) Ativan (Verified Adverse Reaction, Intermediate, STOMACH UPSET, 07/04/16) Codeine (Verified Adverse Reaction, Intermediate, UPSET STOMACH, 07/04/16) Darvocet-N 100 (Verified Adverse Reaction, Intermediate, UPSET STOMACH, ) Darvon (Verified Adverse Reaction, Intermediate, UPSET STOMACH, 07/04/16) Lopid (Verified Adverse Reaction, Intermediate, STOMACH UPSET, 07/04/16) Lovastatin (Verified Adverse Reaction, Intermediate, STOMACH UPSET, ) Questran (Verified Adverse Reaction, Intermediate, STOMACH UPSET, 07/04/16) Welchol (Verified Adverse Reaction, Intermediate, STOMACH UPSET, 07/04/16) Family History No history of Alzheimer's or Parkinson's disease. Social History Denies using tobacco, alcohol or illicit drugs. Physical Exam Vital Signs Vital Signs Date Time Temp Pulse Resp B/P Pulse Ox O2 Delivery O2 Flow Rate FiO2 07/04/16 12:07 89 20 174/79 96 Nasal Cannula 3 07/04/16 11:08 84 174/79 98 Nasal Cannula 3 07/04/16 11:08 98 Nasal Cannula 3 07/04/16 10:55 94 Nasal Cannula 4.00 07/04/16 10:03 77 42 185/81 99 BiPAP 55 07/04/16 10:03 99 BiPAP 55 07/04/16 10:00 100 50 07/04/16 10:00 26 98 Non-Rebreather 15 100 07/04/16 09:58 96 Non-Rebreather 15 07/04/16 09:56 38 64 07/04/16 09:51 99.3 80 28 70 Room Air Physical Exam GENERAL: This is a well-nourished, well-developed patient, in no apparent distress. SKIN: No rashes, ecchymoses or lesions. Warm and dry. HEAD: Atraumatic. Normocephalic. No temporal or scalp tenderness. EYES: Pupils equal round and reactive. No injection or drainage. ENT: Nose without bleeding, purulent drainage or septal hematoma. Airway patent. NECK: Trachea midline. No lymphadenopathy. Supple, nontender, no meningeal signs. CARDIOVASCULAR: Regular rate and rhythm without murmurs, gallops, or rubs. No JVD. RESPIRATORY: Moderate air entry. Diffuse crackles in the posterior lung werner. GASTROINTESTINAL: Abdomen soft, non-tender, nondistended. No guarding. MUSCULOSKELETAL: Extremities without clubbing, cyanosis, or edema. NEUROLOGICAL: Awake and alert. Cranial nerves II through XII intact. No focal neurological deficits. Normal speech. Laboratory Laboratory Tests Test 07/04/16 07/04/16 10:10 10:35 White Blood Count 7.7 Red Blood Count 2.76 Hemoglobin 8.4 Hematocrit 25.9 Mean Corpuscular Volume 93.7 Mean Corpuscular Hemoglobin 30.4 Mean Corpuscular Hemoglobin 32.5 Concent Red Cell Distribution Width 16.4 Platelet Count 190 Mean Platelet Volume 7.8 Neutrophils (%) (Auto) 79.4 Lymphocytes (%) (Auto) 5.7 Monocytes (%) (Auto) 13.5 Eosinophils (%) (Auto) 0.7 Basophils (%) (Auto) 0.7 Neutrophils # (Auto) 6.1 Lymphocytes # (Auto) 0.4 Monocytes # (Auto) 1.0 Eosinophils # (Auto) 0.1 Basophils # (Auto) 0.1 CBC Comment DIFF FINAL Differential Comment Prothrombin Time 10.6 Prothromb Time International 1.0 Ratio Activated Partial 26.0 Thromboplast Time Sodium Level 139 Potassium Level 4.4 Chloride Level 106 Carbon Dioxide Level 24.7 Anion Gap 8 Blood Urea Nitrogen 40 Creatinine 2.97 Estimat Glomerular Filtration 15 Rate Random Glucose 117 Calcium Level 8.8 Total Creatine Kinase 19 Troponin I 0.03 Blood Gas Puncture Site RT RADIAL Blood Gas Patient Temperature 98.6 Blood Gas HCO3 22 Blood Gas Base Excess -3.1 Blood Gas Oxygen Saturation 97 Arterial Blood pH 7.35 Arterial Blood Partial 40 Pressure CO2 Arterial Blood Partial 136 Pressure O2 Arterial Blood Oxygen Content 14.2 Arterial Blood 1.4 Carboxyhemoglobin Arterial Blood Methemoglobin 0.4 Blood Gas Hemoglobin 10.2 Oxygen Delivery Device NEB TX Blood Gas Inspired Oxygen 60 Date/Time Procedure Status Source Growth 07/04/16 10:15 Aerobic Blood Culture Received Blood Peripheral Pending 07/04/16 10:15 Anaerobic Blood Culture Received Blood Peripheral Pending Result Diagram: 07/04/16 1010 07/04/16 1010 Imaging Last Impressions Chest X-Ray 07/04/16 1003 Signed Impressions: Service Date/Time: Wednesday, July 04, 2016 10:14 - CONCLUSION: Bilateral lung opacity with perihilar predominance suggesting asymmetric pulmonary edema. Possible superimposed infection. Small left pleural effusion. Isac Yañez MD Assessment and Plan Problem List: (1) Acute respiratory failure with hypoxia ICD Code: J96.01 Status: Acute (2) ESRD (end stage renal disease) ICD Code: N18.6 Status: Acute (3) Small cell lung cancer ICD Code: C34.90 Status: Acute Assessment and Plan Ms. Calderon is a pleasant 81 year old female with a history of SCLC, ESRD who presented to the ED due to 2 day duration of orthopnea, cough. She missed her dialysis on 07/02/2016. On arrival, she was severely hypoxic with O2 sat 64-70%. CXR showed pulmonary edema as well as consolidation. - Acute respiratory failure with hypoxia - Acute pulmonary edema - Probable Pneumonia - CXR reviewed by me - shows diffuse pulmonary edema. - Supplemental O2 to keep O2 sat > 90%. - Will give Levaquin 750mg Once then Levaquin 500mg every other day x 3 doses. - DuoNeb. - ESRD - Will consult Nephrology. Patient missed dialysis on . Today ( Sat) is her regular dialysis day. - Small cell lung cancer - currently undergoing radiation therapy. Followed by Dr. Gonsalez (Heme/Onc). Full code. Heparin SQ Discussed with Dr. Sanford (Nephrology). Physician Certification 2 Midnight Certification Type: Admission for Inpatient Services Order for Inpatient Services The services are ordered in accordance with Medicare regulations or non- Medicare payer requirements, as applicable. In the case of services not specified as inpatient-only, they are appropriately provided as inpatient services in accordance with the 2-midnight benchmark. Estimated LOS (days): 2 days is the estimated time the patient will need to remain in the hospital, assuming treatment plan goals are met and no additional complications. Post-Hospital Plan: Home Maico Campbell DO July 04, 2016 12:38
[2016-07-04] MEDS ORDERED: SODIUM CHLORIDE 0.9% FLUSH 10 ML FLUSH IV FLUSH PRN ×2 (12:45→17:15)
[2016-07-04] MEDS ORDERED: MAGNESIUM HYDROXIDE SUSP 30 ML CUP PO PRN (12:45)
[2016-07-04] MEDS ORDERED: NALOXONE HCL 0.4 MG/ML AMP IV PRN (12:45)
[2016-07-04] MEDS: HEPARIN SODIUM - SQ 10,000 UNITS/ML VIAL SQ SCH ×2 (13:34→23:47)
[2016-07-04] MEDS: ACETAMINOPHEN 325 MG TAB PO PRN ×2 (14:38→20:54)
--- NOTE | 2016-07-04 16:01 | EKG ---
Date Performed: 07/04/2016 Time Performed: 10:30:48 PTAGE: 81 years EKG: Sinus rhythm POSSIBLE RIGHT VENTRICULAR CONDUCTION DELAY BORDERLINE ECG Compared to prior tracing no significant change PREVIOUS TRACING : 02/15/2016 12.46 DOCTOR: Homa Mcfadden Interpretating Date/Time 07/04/2016 15:59:06
[2016-07-04] MEDS ORDERED: SODIUM CHLOR 0.9% 1000 ML INJ 1,000 ML IV PRN ×3 (17:01)
[2016-07-04] MEDS ORDERED: GENTAMICIN SULFATE (DIALYSIS USE ONLY) 20 MG/2 ML VIAL IV PRN (17:15)
[2016-07-04] MEDS ORDERED: NITROGLYCERIN 0.4 MG SL 25 TABS/BTL SL PRN (17:15)
[2016-07-04] MEDS ORDERED: ALBUMIN HUMAN 25% 25 GM/100 ML BAGP IV PRN (17:15)
[2016-07-04] MEDS ORDERED: diphenhydrAMINE HCL 25 MG CAP PO PRN (17:15)
[2016-07-04] MEDS ORDERED: cloNIDine HCL 0.1 MG TAB PO PRN (17:15)
[2016-07-04] MEDS ORDERED: HEPARIN SODIUM - IV 10,000 UNITS/10 ML VIAL PRN (17:15)
[2016-07-04] MEDS ORDERED: HEPARIN SODIUM - IV 10,000 UNITS/10 ML VIAL IVF PRN (17:15)
[2016-07-04] MEDS ORDERED: ACETAMINOPHEN 325 MG TAB PO PRN (17:15)
[2016-07-04] MEDS ORDERED: MANNITOL 12.5 GM/50 ML VIAL IV PRN (17:15)
--- NOTE | 2016-07-04 17:26 | MB ---
cc: KIMBERLY ALFARO MD DATE OF CONSULTATION: 07/04/2016. REASON FOR CONSULTATION: End-stage renal disease on hemodialysis for management. HISTORY OF PRESENT ILLNESS: This is an 81-year-old female with past medical history of chronic obstructive pulmonary disease, history of lung cancer, hypothyroidism, hypertension, chronic anemia, end-stage renal disease on hemodialysis three times per week who came to the hospital because of worsening shortness of breath. I was called to see the patient for management of dialysis. She has been on hemodialysis for almost a year. She goes for dialysis on Wednesday, and Wednesday. She went for dialysis Wednesday and and she missed because her had hernia surgery and she was busy with him all day in the hospital. She was supposed to go for her dialysis today but her breathing got worse and she eventually came to the hospital. The patient was recently diagnosed with lung cancer and she has been on radiation therapy. She has a past history of smoking. She denies any chest pain. She has a mild cough mainly dry. There is no history of fever. No nausea or vomiting. No abdominal pain. PAST MEDICAL HISTORY: 1. Hypertension. 2. Hypothyroidism. 3. Chronic obstructive pulmonary disease. 4. Lung cancer. 5. Chronic anemia. 6. End-stage renal disease on hemodialysis three times per week. PAST SURGICAL HISTORY: 1. Left arm AV fistula surgery. 2. Colon resection with hernia repair. 3. Cholecystectomy. 4. Left wrist surgery. REVIEW OF SYSTEMS Denies any history of fever. No sore throat. She has had gradual worsening of shortness of breath; initially it was with exertion and then also at rest. She has a mild cough which is mainly dry. There is no chest pain. No palpitations. No nausea or vomiting. No abdominal pain. No history of diarrhea. SOCIAL HISTORY The patient is and lives with her . She has a past history of smoking. No history of heavy alcoholism. FAMILY HISTORY: Family history is noncontributory. ALLERGIES: SHE IS ALLERGIC TO MULTIPLE MEDICATIONS INCLUDIN. CONTRAST MEDIA. 2. FLAGYL. 3. ATIVAN. 4. CODEINE. 5. DARVOCET. 6. DARVON. 7. LOPID. 8. LOVASTATIN. 9. QUESTRAN. 10. WELCHOL. MEDICATIONS: Currently she is on following medications: 1. Heparin 5000 units subcutaneous q. 12 hours. 2. She received Methylprednisolone 125 milligrams. 3. Zofran one dose. PHYSICAL EXAMINATION: GENERAL: On examination, the patient is awake and alert and she is currently on hemodialysis. VITAL SIGNS: Her last blood pressure was 151/87, temperature is 97.8, oxygen saturation is 96% to 97% on 3 liters nasal cannula. HEAD, EYES, EARS, NOSE, THROAT: The pupils are equal and reacting to light. Nonicteric sclerae. Conjunctivae are pale. NECK: The neck is supple. JVD is slightly elevated. LUNGS: The patient has bilateral decreased air entry with basal rales and scattered wheezing. HEART: S1 and S2 regular rhythm. ABDOMEN: Abdomen soft and lax. There is no tenderness. Bowel sounds positive. EXTREMITIES: She has mild pedal edema. INVESTIGATIONS: White blood cell count is 7.7, hemoglobin 8.4, platelet count 119,000. Neutrophils 79.4%. Sodium 139, potassium 4.4, chloride 106, bicarbonate 24.7, BUN 40, creatinine 2.97. Creatine kinase 19. Troponin I is 0.03. INR is 1.0. IMAGING STUDIES: The patient had a chest x-ray done which shows that she has bilateral lung opacities with perihilar prominence suggestive of asymmetric pulmonary edema, a small left pleural effusion. ASSESSMENT AND PLAN: 1. End-stage renal disease on hemodialysis with fluid overload status. 2. COPD with exacerbation. 3. History of lung cancer. 4. Anemia. 5. Hypertension 6. Hypothyroidism. The patient has been in fluid overload status. She missed her dialysis on and now is coming with fluid overload with some COPD exacerbation. At present, we started her on dialysis and we are trying to remove 3.5 to 4.0 liters. Her blood pressure is stable so far. Today is her regular day for dialysis so she will be back on her regular days of Wednesday, and Wednesday. Continue the medication for the COPD exacerbation and follow the patient clinically. If she is stabilized, then possibly she will be discharged tomorrow or the next day. Thank you for the consultation. I will follow the patient over the weekend. MD ERIC IrbyJ/WALT /5:01 PM /5:14 PM
[2016-07-04] MEDS: GELATIN 12 MM/7 MM FOAM TOP PRN (17:48)
[2016-07-04] MEDS: EPOETIN ALFA 10,000 UNITS/ML VIAL IV PRN (17:49)
[2016-07-04] MEDS: SODIUM CHLORIDE 0.9% FLUSH 10 ML FLUSH IV FLUSH SCH (20:48)
[2016-07-04] MEDS ORDERED: LEVOFLOXACIN 750 MG TAB PO ONE (22:00)
[2016-07-04] MEDS ORDERED: RESP: ALBUTEROL 2.5 MG/IPRATROPIUM 0.5 MG NEB (PRN) NEB (22:00)
[2016-07-04] MEDS: ONDANSETRON HCL 4 MG/2 ML VIAL IVP PRN (22:05)
[2016-07-05] VITALS (27 sets, daily range): BP systolic 117–203; BP diastolic 44–77; PULSE 18–89; RESP 14–20; TEMP 98–99.5; O2SAT 91–94
[2016-07-05] MEDS: ONDANSETRON HCL 4 MG/2 ML VIAL IVP PRN ×2 (03:58→21:49)
[2016-07-05] MEDS: ACETAMINOPHEN 325 MG TAB PO PRN (03:59)
[2016-07-05] MEDS: RESP: ALBUTEROL 2.5 MG/IPRATROPIUM 0.5 MG NEB (SCH) NEB ×3 (08:06→19:46)
[2016-07-05 08:15] LABS: AUTOMATED NEUTROPHIL # 6.4 TH/MM3 (1.8-7.7); BASOPHIL % 0.2 % (0.0-2.0); HEMATOCRIT 23.6 % (35.0-46.0); HEMO FLAGS DIFF FINAL; LYMPH % 5.5 % (9.0-44.0); LYMPHOCYTE # 0.4 TH/MM3 (1.0-4.8); MEAN CELL VOLUME 93.3 FL (80.0-100.0); MEAN CORPUSCULAR HEMOGLOBIN 29.7 PG (27.0-34.0); MEAN CORPUSCULAR HGB CONC 31.8 % (32.0-36.0); MONO % 13.3 % (0.0-8.0); PLATELET COUNT 163 TH/MM3 (150-450); RED BLOOD COUNT 2.52 MIL/MM3 (4.00-5.30); RED CELL DISTRIBUTION WIDTH 16.3 % (11.6-17.2); WHITE BLOOD COUNT 7.9 TH/MM3 (4.0-11.0)
[2016-07-05 08:33] LABS: BICARBONATE 31.6 MEQ/L (21.0-32.0); POTASSIUM 3.7 MEQ/L (3.5-5.1)
[2016-07-05] MEDS: SODIUM CHLORIDE 0.9% FLUSH 10 ML FLUSH IV FLUSH SCH ×2 (09:21→21:50)
[2016-07-05] MEDS: ONDANSETRON HCL 4 MG/2 ML VIAL IV PRN (11:23)
--- NOTE | 2016-07-05 12:08 | HHI.PR ---
Subjective Remarks Follow-up for acute respiratory failure, pulmonary edema, ESRD. Patient is currently doing well. She denies chest pain, shortness of breath, fever or chills. Breathing much better. Objective Vitals Vital Signs Date Time Temp Pulse Resp B/P Pulse Ox O2 Delivery O2 Flow Rate FiO2 07/05/16 11:25 99.0 80 17 181/60 94 07/05/16 09:21 99.3 84 14 184/68 92 07/05/16 08:05 91 Nasal Cannula 2.00 07/05/16 08:00 Nasal Cannula 3.00 55 07/05/16 06:00 78 07/05/16 05:00 74 07/05/16 05:00 148/57 07/05/16 04:59 20 07/05/16 04:04 203/77 07/05/16 04:03 92 Nasal Cannula 3.00 07/05/16 04:03 98.4 18 20 195/76 92 07/05/16 04:00 80 07/05/16 03:00 72 07/05/16 02:00 76 07/05/16 01:00 72 07/05/16 00:00 94 Nasal Cannula 3.00 07/05/16 00:00 98.2 18 20 169/53 94 07/05/16 00:00 80 07/04/16 22:00 70 07/04/16 21:00 70 07/04/16 20:00 82 07/04/16 19:45 98.3 18 20 171/64 94 07/04/16 19:45 94 Nasal Cannula 3.00 07/04/16 13:43 97.8 84 20 151/87 97 Nasal Cannula 3 I/O 07/04/16 07/04/16 07/04/16 07/05/16 07/05/16 07/05/16 07:00 15:00 23:00 07:00 15:00 23:00 Intake Total 200 ml Output Total 2500 ml 60 ml Balance 200 ml -2500 ml -60 ml Intake Oral 200 ml Output Urine Total 60 ml Hemodialysis 2500 ml # Bowel Movements 0 0 Result Diagram: 07/05/1616 07/05/16 0716 Imaging Last Impressions Chest X-Ray 07/04/16 1003 Signed Impressions: Service Date/Time: Monday, July 04, 2016 10:14 - CONCLUSION: Bilateral lung opacity with perihilar predominance suggesting asymmetric pulmonary edema. Possible superimposed infection. Small left pleural effusion. Isac Yañez MD Objective Remarks GENERAL: Alert, NAD SKIN: Warm and dry. HEAD: Normocephalic. EYES: No scleral icterus. No injection or drainage. NECK: Supple, trachea midline. No JVD or lymphadenopathy. CARDIOVASCULAR: Regular rate and rhythm without murmurs, gallops, or rubs. RESPIRATORY: Moderate air entry. Diffuse crackles. GASTROINTESTINAL: Abdomen soft, non-tender, nondistended. MUSCULOSKELETAL: No cyanosis, or edema. BACK: Nontender without obvious deformity. No CVA tenderness. Procedures None A/P Problem List: (1) Acute respiratory failure with hypoxia ICD Code: J96.01 Status: Acute (2) ESRD (end stage renal disease) ICD Code: N18.6 Status: Acute (3) Small cell lung cancer ICD Code: C34.90 Status: Acute Assessment and Plan Ms. Calderon is a pleasant 81 year old female with a history of SCLC, ESRD who presented to the ED due to 2 day duration of orthopnea, cough. She missed her dialysis on 07/02/2016. On arrival, she was severely hypoxic with O2 sat 64-70%. CXR showed pulmonary edema as well as consolidation. - Acute respiratory failure with hypoxia - Acute pulmonary edema - Probable Pneumonia - CXR reviewed by or - shows diffuse pulmonary edema. - Supplemental O2 to keep O2 sat > 90%. - Will give Levaquin 750mg Once then Levaquin 500mg every other day x 3 doses. - DuoNeb. - Walk test for home oxygen tomorrow. - ESRD - Nephrology is following. Patient missed dialysis prior to coming to the hospital. Received dialysis on 07/04/2016. - Hypertension - at home patient takes losartan 100 mg daily, metoprolol succinate 25 mg daily, clonidine 0.2 mg by mouth every 8 hours, nifedipine 90 mg by mouth daily. - Continue home medications. Clonidine 0.1 mg when necessary - Discussed with Dr. Sanford - he will look into need for any diuretics. - Hypothyroidism - continue levothyroxine 100 g daily. - Small cell lung cancer - currently undergoing radiation therapy. Followed by Dr. Gonsalez (Heme/Onc). Full code. Heparin SQ Discharge plan: The blood pressure is well controlled, pending walk test results patient can be discharged on 07/06/2016. Maico Campbell DO July 05, 2016 12:08 pm
[2016-07-05] MEDS: METOPROLOL SUCCINATE 25 MG EXTENDED RELEASE TAB PO SCH (12:52)
[2016-07-05] MEDS: SUCRALFATE 1 GM TAB PO SCH ×2 (12:53→17:31)
[2016-07-05] MEDS: HEPARIN SODIUM - SQ 10,000 UNITS/ML VIAL SQ SCH (12:53)
[2016-07-05] MEDS: LOSARTAN 50 MG TAB PO SCH (12:53)
[2016-07-05] MEDS: cloNIDine HCL 0.2 MG TAB PO SCH ×2 (12:53→21:49)
[2016-07-05] MEDS: NIFEdipine 90 MG SUSTAINED RELEASE TAB PO SCH (12:55)
[2016-07-05] MEDS ORDERED: MORPHINE SULFATE 15 MG CONTROLLED RELEASE TAB PO PRN (13:00)
--- NOTE | 2016-07-05 13:51 | HHI.NPPN ---
Subjective General Problems: Anemia, Hypertension Renal Failure: End Stage Renal Disease History of Present Illness 81-year-old female with past medical history of chronic obstructive pulmonary disease, history of lung cancer, hypothyroidism, hypertension, chronic anemia, end-stage renal disease on hemodialysis three times per week who came to the hospital because of worsening shortness of breath. I was called to see the patient for management of dialysis. She has been on hemodialysis for almost a year. She goes for dialysis on Wednesday, and Wednesday. Review of Systems General Constitutional: Fatigue Respiratory Lungs: SOB, Cough, Wheeze Cardiovascular Cardiac: Edema, MARTIN Objective Data Data 07/04/16 07/05/16 19:00 07:00 Intake Total 200 ml Output Total 2500 ml Balance -2300 ml Intake Oral 200 ml Hemodialysis 2500 ml # Bowel Movements 0 Vital Signs Date Time Temp Pulse Resp B/P Pulse Ox O2 Delivery O2 Flow Rate FiO2 07/05/16 13:43 75 07/05/16 12:00 89 07/05/16 11:45 98.4 81 16 178/65 93 07/05/16 11:45 73 07/05/16 11:25 99.0 80 17 181/60 94 07/05/16 09:21 99.3 84 14 184/68 92 07/05/16 08:05 91 Nasal Cannula 2.00 07/05/16 08:00 Nasal Cannula 3.00 55 07/05/16 06:00 78 07/05/16 05:00 74 07/05/16 05:00 148/57 07/05/16 04:59 20 07/05/16 04:04 203/77 07/05/16 04:03 92 Nasal Cannula 3.00 07/05/16 04:03 98.4 18 20 195/76 92 07/05/16 04:00 80 07/05/16 03:00 72 07/05/16 02:00 76 07/05/16 01:00 72 07/05/16 00:00 94 Nasal Cannula 3.00 07/05/16 00:00 98.2 18 20 169/53 94 07/05/16 00:00 80 07/04/16 22:00 70 07/04/16 21:00 70 07/04/16 20:00 82 07/04/16 19:45 98.3 18 20 171/64 94 07/04/16 19:45 94 Nasal Cannula 3.00 -: 07/05/16 0716 07/05/16 0716 Physical Exam General Appearance: No Acute Distress, Comfortable Eyes Eye Exam: Pupils Equal Throat Throat Exam: Oral Mucosa [place] & Moist Neck Neck Exam: Trachea Midline Pulmonary Resp Exam: Breath Sounds Equal, No Distress, Rhonchi, Decreased Bases, Diminished Breath Sounds Cardiology CV Exam: Regular, Normal Sinus Rhythm Gastrointestinal/Abdomen GI Exam: Soft, Non-Tender, Bowel Sounds Present Extremeties Extremities Exam: Trace Edema Neurologic Neuro Exam: Alert, Awake, Oriented Psychiatric Psych Exam: Appropriate Responses Assessment/Plan Assessment Summary: Anemia of CKD, Fluid/Volume Overload, Hypertension, End Stage Renal Disease Problem List: (1) HTN (hypertension) (2) Anemia (3) Small cell lung cancer (4) Acute respiratory failure with hypoxia (5) ESRD (end stage renal disease) Plan Patient has HD done yesterday and 2.5 liters removed. BP is elevated,d started on home meds. Still wit nasal cannula. HD is due on . Dr. Trejo will follow in AM. Jose Sanford MD July 05, 2016 13:51
[2016-07-05] MEDS: ACETAMINOPHEN/HYDROcodone 325 MG/5 MG TAB PO PRN ×3 (14:25→21:51)
[2016-07-05] MEDS: ATORVASTATIN 10 MG TAB PO SCH (21:49)
[2016-07-05] MEDS: FLUoxetine HCL 20 MG CAP PO SCH (21:50)
[2016-07-06] VITALS (30 sets, daily range): BP systolic 119–154; BP diastolic 36–60; PULSE 56–89; RESP 14–18; TEMP 97.8–100.8; O2SAT 92–97
[2016-07-06] MEDS: HEPARIN SODIUM - SQ 10,000 UNITS/ML VIAL SQ SCH ×2 (04:01→12:25)
[2016-07-06] MEDS: ACETAMINOPHEN/HYDROcodone 325 MG/5 MG TAB PO PRN ×5 (04:02→22:51)
[2016-07-06] MEDS: cloNIDine HCL 0.2 MG TAB PO SCH ×3 (05:41→22:51)
[2016-07-06] MEDS: LEVOTHYROXINE SODIUM 100 MCG TAB PO SCH (05:42)
[2016-07-06] MEDS: RESP: ALBUTEROL 2.5 MG/IPRATROPIUM 0.5 MG NEB (SCH) NEB ×3 (07:28→19:23)
[2016-07-06] MEDS: CALCITRIOL 0.25 MCG CAP PO SCH (08:58)
[2016-07-06] MEDS: METOPROLOL SUCCINATE 25 MG EXTENDED RELEASE TAB PO SCH (08:58)
[2016-07-06] MEDS: ASPIRIN EC 81 MG TABEC PO SCH (08:59)
[2016-07-06] MEDS: SUCRALFATE 1 GM TAB PO SCH ×3 (08:59→16:52)
[2016-07-06] MEDS: SODIUM CHLORIDE 0.9% FLUSH 10 ML FLUSH IV FLUSH SCH ×2 (08:59→22:52)
[2016-07-06] MEDS: LOSARTAN 50 MG TAB PO SCH (08:59)
[2016-07-06] MEDS: PANTOPRAZOLE SOD 40 MG DELAYED RELEASE TAB PO SCH (08:59)
[2016-07-06] MEDS: NIFEdipine 90 MG SUSTAINED RELEASE TAB PO SCH (08:59)
--- NOTE | 2016-07-06 09:13 | HHI.NPPN ---
Subjective Complaints: Shortness of Breath General Problems: Anemia, Hypertension Renal Failure: Chronic, End Stage Renal Disease Interval History She is awake, breathing easily on 2L nasal cannula. No evidence of fluid overload. Pending walk test this a.m. (Milana Sandoval) Review of Systems General Constitutional: Fatigue (Milana Sandoval) Respiratory Lungs: SOB, Cough, Wheeze (Milana Sandoval) Cardiovascular Cardiac: Edema, MARTIN (Milana Sandoval) Objective Data Data 07/05/16 07/06/16 19:00 07:00 Intake Total 700 ml 480 ml Output Total 360 ml 300 ml Balance 340 ml 180 ml Intake Oral 700 ml 480 ml IV Total 0 ml Output Urine Total 360 ml 300 ml Stool Total 0 ml # Bowel Movements 0 Vital Signs Date Time Temp Pulse Resp B/P Pulse Ox O2 Delivery O2 Flow Rate FiO2 07/06/16 07:45 Nasal Cannula 3.00 07/06/16 07:28 93 Nasal Cannula 3.00 07/06/16 06:55 65 07/06/16 05:46 145/55 07/06/16 05:00 65 07/06/16 04:21 98.6 63 16 154/51 93 07/06/16 04:09 63 07/06/16 03:00 60 07/06/16 02:00 56 07/06/16 01:00 58 07/06/16 00:00 98.7 58 16 131/41 97 07/06/16 00:00 60 07/05/16 23:00 60 07/05/16 22:00 66 07/05/16 21:17 Nasal Cannula 3.00 93 07/05/16 21:00 64 07/05/16 20:00 99.5 68 14 143/54 93 07/05/16 20:00 62 07/05/16 19:46 93 Nasal Cannula 3.00 07/05/16 19:00 63 07/05/16 18:17 18 07/05/16 18:01 63 07/05/16 17:42 64 07/05/16 16:55 92 Nasal Cannula 3.00 07/05/16 16:00 70 07/05/16 15:52 98.0 76 16 117/44 92 07/05/16 15:52 73 07/05/16 14:09 73 07/05/16 13:43 75 07/05/16 12:00 89 07/05/16 11:45 98.4 81 16 178/65 93 07/05/16 11:45 73 07/05/16 11:25 99.0 80 17 181/60 94 07/05/16 09:21 99.3 84 14 184/68 92 (Milana Sandoval) -: 07/05/16 0716 07/05/16 0716 Imaging Last 72 hours Impressions Chest X-Ray 07/04/16 1003 Signed Impressions: Service Date/Time: Wednesday, July 04, 2016 10:14 - CONCLUSION: Bilateral lung opacity with perihilar predominance suggesting asymmetric pulmonary edema. Possible superimposed infection. Small left pleural effusion. Isac Yañez MD (Milana Sandoval) Physical Exam General Appearance: Well Developed, No Acute Distress, Comfortable (Milana Sandoval) Eyes Eye Exam: Pupils Equal (Milana Sandoval) Throat Throat Exam: Oral Mucosa [place] & Moist (Milana Sandoval) Neck Neck Exam: Trachea Midline (Milana Sandoval) Pulmonary Resp Exam: Clear Bilaterally, Breath Sounds Equal, No Distress, Decreased Bases , Diminished Breath Sounds (Milana Sandoval) Cardiology CV Exam: Regular, Normal Sinus Rhythm, Good Perfusion (Milana Sandoval) Gastrointestinal/Abdomen GI Exam: Soft, Non-Tender, Bowel Sounds Present (Milana Sandoval) Musculoskeletal MS Exam: Joints Intact, Good Strength (Milana Sandoval) Integumentary Skin Exam: Clear, Warm, Dry, Intact (Milana Sandoval) Extremeties Extremities Exam: No Edema, Pedal Pulses Palpable (Milana Sandoval) Neurologic Neuro Exam: Alert, Awake, Oriented, Speech Clear, Moving All Extremities ( Milana Sandoval) Psychiatric Psych Exam: Appropriate Responses (Milana Sandoval) Assessment/Plan Discussed Condition With: Patient Assessment Summary: Anemia of CKD, Fluid/Volume Overload, Hypertension, End Stage Renal Disease Problem List: (1) ESRD (end stage renal disease) Plan: Resume TTS hemodialysis support, she had 2500 ml UF on Wednesday no indication for extra treatments at this time no acute dialysis concerns, we will give her a blood transfusion during dialysis tomorrow continue present medications renal diet with no protein restriction avoid IVF, gadolinium (2) HTN (hypertension) Plan: BP acceptable continue home medications (3) Anemia Plan: epogen with dialysis Hb is lower, minimize lab draws, no dark stools reported will order blood transfusion for tomorrow during dialysis (4) Acute respiratory failure with hypoxia Plan: being treated for pneumonia ordered Levaquin but patient reports an allergy to this states she can take Azithromycin pulse ox low this am, due for walking test to decide if she needs home oxygen blood transfusion will likely help shortness of breath/hypoxia (5) Small cell lung cancer Plan: former smoker, currently undergoing radiation therapy outpatient (Milana Sandoval) Plan patient was seen and examined. Agree with above assessment and plan. Transfusion at dialysis and later can be discharged. (Gt Trejo MD) Milana Sandoval July 06, 2016 09:13 Gt Trejo MD July 07, 2016 12:18
--- NOTE | 2016-07-06 09:25 | HHI.PR ---
Subjective Remarks Follow-up acute respiratory failure 07/06/16-patient seen and examined, denies any shortness of breath, chest pain or palpitation. No acute event overnight. BP now much more improved. Patient denies any headache. Objective Vitals Vital Signs Date Time Temp Pulse Resp B/P Pulse Ox O2 Delivery O2 Flow Rate FiO2 07/06/16 07:45 Nasal Cannula 3.00 07/06/16 07:28 93 Nasal Cannula 3.00 07/06/16 06:55 65 07/06/16 05:46 145/55 07/06/16 05:00 65 07/06/16 04:21 98.6 63 16 154/51 93 07/06/16 04:09 63 07/06/16 03:00 60 07/06/16 02:00 56 07/06/16 01:00 58 07/06/16 00:00 98.7 58 16 131/41 97 07/06/16 00:00 60 07/05/16 23:00 60 07/05/16 22:00 66 07/05/16 21:17 Nasal Cannula 3.00 93 07/05/16 21:00 64 07/05/16 20:00 99.5 68 14 143/54 93 07/05/16 20:00 62 07/05/16 19:46 93 Nasal Cannula 3.00 07/05/16 19:00 63 07/05/16 18:17 18 07/05/16 18:01 63 07/05/16 17:42 64 07/05/16 16:55 92 Nasal Cannula 3.00 07/05/16 16:00 70 07/05/16 15:52 98.0 76 16 117/44 92 07/05/16 15:52 73 07/05/16 14:09 73 07/05/16 13:43 75 07/05/16 12:00 89 07/05/16 11:45 98.4 81 16 178/65 93 07/05/16 11:45 73 07/05/16 11:25 99.0 80 17 181/60 94 07/05/16 09:21 99.3 84 14 184/68 92 I/O 07/05/16 07/05/16 07/05/16 07/06/16 07/06/16 07/06/16 06:59 14:59 22:59 06:59 14:59 22:59 Intake Total 700 ml 480 ml Output Total 60 ml 300 ml 300 ml Balance -60 ml 400 ml 180 ml Intake Oral 700 ml 480 ml IV Total 0 ml Output Urine Total 60 ml 300 ml 300 ml Stool Total 0 ml # Bowel Movements 0 Result Diagram: 07/05/16 0716 07/05/16 0716 Imaging Last Impressions Chest X-Ray 07/04/16 1003 Signed Impressions: Service Date/Time: Wednesday, July 04, 2016 10:14 - CONCLUSION: Bilateral lung opacity with perihilar predominance suggesting asymmetric pulmonary edema. Possible superimposed infection. Small left pleural effusion. Isac Yañez MD Objective Remarks GENERAL: NAD SKIN: Warm and dry. HEAD: Normocephalic. EYES: No scleral icterus. No injection or drainage. NECK: Supple, trachea midline. No JVD or lymphadenopathy. CARDIOVASCULAR: Regular rate and rhythm without murmurs, gallops, or rubs. RESPIRATORY: Breath sounds equal bilaterally. No accessory muscle use. GASTROINTESTINAL: Abdomen soft, non-tender, nondistended. MUSCULOSKELETAL: No cyanosis, or edema. BACK: Nontender without obvious deformity. No CVA tenderness. Procedures None A/P Problem List: (1) Acute respiratory failure with hypoxia ICD Code: J96.01 Status: Acute (2) ESRD (end stage renal disease) ICD Code: N18.6 Status: Acute (3) Small cell lung cancer ICD Code: C34.90 Status: Acute Assessment and Plan 81-year-old female with - Acute respiratory failure with hypoxia - Acute pulmonary edema - Probable Pneumonia - CXR shows diffuse pulmonary edema. - Supplemental O2 to keep O2 sat > 90%. And continue with DuoNeb when necessary as well as Levaquin 500mg every other day x 3 doses. - Walk test for home oxygen today and 07/06/16 prior to discharge. - ESRD - Nephrology is following. Patient missed dialysis prior to coming to the hospital. Received dialysis on 07/04/2016. - Hypertension -BP improving and continue losartan 100 mg daily, metoprolol succinate 25 mg daily, clonidine 0.2 mg by mouth every 8 hours, nifedipine 90 mg by mouth daily. - Clonidine 0.1 mg when necessary - Hypothyroidism - continue levothyroxine 100 g daily. - Hyperlipidemia: Currently on TriCor and Lipitor - Small cell lung cancer - currently undergoing radiation therapy. Followed by Dr. Gonsalez (Heme/Onc). Full code. Heparin SQ Patrice Madison MD July 06, 2016 09:25
[2016-07-06] MEDS: LEVOFLOXACIN 500 MG TAB PO SCH (11:00)
[2016-07-06] MEDS: FENOFIBRATE 48 MG TAB PO SCH (11:22)
[2016-07-06] MEDS ORDERED: SODIUM CHLOR 0.9% 250 ML INJ 250 ML IV ONE (13:00)
[2016-07-06] MEDS ORDERED: OXYGENTANK NAS.CANULA (14:48)
[2016-07-06] MEDS: RESP: ALBUTEROL 2.5 MG/3 ML NEB (PRN) NEB ×2 (16:04→19:20)
[2016-07-06] MEDS: ONDANSETRON HCL 4 MG/2 ML VIAL IVP PRN (22:50)
[2016-07-06] MEDS: FLUoxetine HCL 20 MG CAP PO SCH (22:52)
[2016-07-06] MEDS: ATORVASTATIN 10 MG TAB PO SCH (22:52)
--- NOTE | 2016-07-06 22:59 | RADRPT ---
EXAM DATE/TIME: 07/06/2016 21:58 [facility] COMPARISON: No previous studies available for comparison. INDICATIONS : Hematoma and swelling to right arm. MEDICAL HISTORY : Chronic obstructive pulmonary disease. Congestive heart failure. Hypercholesterolemia. Hypothyroidism . Macular degeneration. Hearing loss. Hypertension. Hyperlipidemia. GERD. Diverticulitis. . Renal failure. Dialysis. Carpal tunnel. Arthritis. Diabetes. Blood transfusion. Anemia. SURGICAL HISTORY : Cholecystectomy. Appendectomy. Tubal ligation. Left arm AV fistula. Cement injection to spine. Left w rist surgery. ENCOUNTER: Initial ACUITY: 1 day PAIN SCORE: 0/10 LOCATION: Right arm. AREA EVALUATED: Right anterior arm prox to AC area. FINDINGS: There is a complex avascular area measuring up to 2.6 x 2.5 x 0.9 cm adjacent to the cephalic vein mo st characteristic of a hematoma. No evidence for associated pseudoaneurysm. Nonocclusive thrombus pre sent in the right cephalic vein at the antecubital fossa. CONCLUSION: 1. Hematoma adjacent to cephalic vein without evidence for pseudoaneurysm. Nonocclusive thrombus righ t cephalic vein. Sebastien Hastings MD on July 06, 2016 at 22:56 Board Certified Radiologist. This report was verified electronically.
[2016-07-07] VITALS (27 sets, daily range): BP systolic 115–160; BP diastolic 48–66; PULSE 60–86; RESP 14–18; TEMP 97.1–99.5; O2SAT 90–94
[2016-07-07] MEDS: HEPARIN SODIUM - SQ 10,000 UNITS/ML VIAL SQ SCH ×2 (00:15→14:15)
[2016-07-07] MEDS: cloNIDine HCL 0.2 MG TAB PO SCH ×3 (05:03→20:09)
[2016-07-07] MEDS: LEVOTHYROXINE SODIUM 100 MCG TAB PO SCH (05:03)
[2016-07-07] MEDS: ACETAMINOPHEN/HYDROcodone 325 MG/5 MG TAB PO PRN ×4 (05:05→20:06)
[2016-07-07 06:24] LABS: AUTOMATED NEUTROPHIL # 4.7 TH/MM3 (1.8-7.7); BASOPHIL % 0.5 % (0.0-2.0); EOSINOPHIL % 0.3 % (0.0-4.0); LYMPH % 11.3 % (9.0-44.0); LYMPHOCYTE # 0.7 TH/MM3 (1.0-4.8); MEAN CELL VOLUME 92.8 FL (80.0-100.0); MEAN CORPUSCULAR HEMOGLOBIN 31.2 PG (27.0-34.0); MEAN CORPUSCULAR HGB CONC 33.6 % (32.0-36.0); MONO % 9.9 % (0.0-8.0); PLATELET COUNT 154 TH/MM3 (150-450); RED BLOOD COUNT 2.19 MIL/MM3 (4.00-5.30); RED CELL DISTRIBUTION WIDTH 16.2 % (11.6-17.2)
[2016-07-07 06:27] LABS: HEMO FLAGS AUTO DIFF
[2016-07-07 06:29] LABS: HEMATOCRIT 20.3 % (35.0-46.0)
[2016-07-07 07:55] LABS: SCAN/DIFF AUTO DIFF CONFIRMED
[2016-07-07] MEDS: RESP: ALBUTEROL 2.5 MG/IPRATROPIUM 0.5 MG NEB (SCH) NEB ×3 (08:00→20:00)
[2016-07-07] MEDS: LOSARTAN 50 MG TAB PO SCH (09:00)
[2016-07-07] MEDS: SODIUM CHLORIDE 0.9% FLUSH 10 ML FLUSH IV FLUSH SCH ×2 (09:00→20:06)
[2016-07-07] MEDS: SUCRALFATE 1 GM TAB PO SCH ×3 (09:00→18:00)
--- NOTE | 2016-07-07 09:18 | HHI.NPPN ---
Subjective Complaints: Shortness of Breath General Problems: Anemia, Hypertension Renal Failure: Chronic, End Stage Renal Disease Interval History Seen during dialysis. More anemic today, minimal shortness of breath. (Milana Sandoval) Review of Systems General Constitutional: Fatigue (Milana Sandoval) Respiratory Lungs: SOB, Cough, Wheeze (Milana Sandoval) Cardiovascular Cardiac: Edema, MARTIN (Milana Sandoval) Objective Data Data 07/06/16 07/07/16 19:00 07:00 Intake Total 780 ml 480 ml Output Total 300 ml Balance 480 ml 480 ml Intake Oral 780 ml 480 ml IV Total 0 ml Output Urine Total 300 ml # Voids 2 3 # Bowel Movements 1 0 Vital Signs Date Time Temp Pulse Resp B/P Pulse Ox O2 Delivery O2 Flow Rate FiO2 07/07/16 05:10 97.1 86 16 126/66 92 07/07/16 05:00 80 07/07/16 04:00 66 07/07/16 03:00 64 07/07/16 02:00 62 07/07/16 01:00 66 07/07/16 00:00 70 07/06/16 23:00 82 07/06/16 22:50 100.8 89 14 151/60 95 07/06/16 22:00 74 07/06/16 21:03 92 Nasal Cannula 3.50 07/06/16 21:00 82 07/06/16 20:45 Nasal Cannula 3.00 07/06/16 20:45 99.7 85 14 138/50 97 07/06/16 20:00 82 07/06/16 19:00 78 07/06/16 18:00 76 07/06/16 17:00 76 07/06/16 16:00 66 07/06/16 16:00 98.2 66 18 123/48 94 07/06/16 15:00 68 07/06/16 14:44 20 07/06/16 14:00 62 07/06/16 13:00 58 07/06/16 12:27 3.00 07/06/16 12:00 56 07/06/16 12:00 98.2 58 16 119/36 97 07/06/16 11:00 58 07/06/16 10:00 60 (Milana Sandoval) -: 07/07/16 0530 07/07/16 0530 Imaging Last 72 hours Impressions Upper Extremity Ultrasound 07/06/16 0000 Signed Impressions: Service Date/Time: Wednesday, July 06, 2016 21:58 - CONCLUSION: 1. Hematoma adjacent to cephalic vein without evidence for pseudoaneurysm. Nonocclusive thrombus right cephalic vein. Sebastien Hastings MD Chest X-Ray 07/04/16 1003 Signed Impressions: Service Date/Time: Monday, July 04, 2016 10:14 - CONCLUSION: Bilateral lung opacity with perihilar predominance suggesting asymmetric pulmonary edema. Possible superimposed infection. Small left pleural effusion. Isac Yañez MD (Milana Sandoval) Physical Exam General Appearance: Well Developed, No Acute Distress, Comfortable (Milana Sandoval) Eyes Eye Exam: Pupils Equal (Milana Sandoval) Throat Throat Exam: Oral Mucosa [place] & Moist (Milana Sandoval) Neck Neck Exam: Trachea Midline (Milana Sandoval) Pulmonary Resp Exam: Clear Bilaterally, Breath Sounds Equal, No Distress, Decreased Bases , Diminished Breath Sounds (Milana Sandoval) Cardiology CV Exam: Regular, Normal Sinus Rhythm, Good Perfusion (Milana Sandoval) Gastrointestinal/Abdomen GI Exam: Soft, Non-Tender, Bowel Sounds Present (Milana Sandoval) Musculoskeletal MS Exam: Joints Intact, Good Strength (Milaan Sandoval) Integumentary Skin Exam: Clear, Warm, Dry, Intact (Milana Sandoval) Extremeties Extremities Exam: No Edema, Pedal Pulses Palpable Extremeties Remarks LUE AVF, accessed during HD (Milana Sandoval) Neurologic Neuro Exam: Alert, Awake, Oriented, Speech Clear, Moving All Extremities ( Milana Sandoval) Psychiatric Psych Exam: Appropriate Responses (Milana Sandoval) Assessment/Plan Discussed Condition With: Patient Assessment Summary: Anemia of CKD, Fluid/Volume Overload, Hypertension, End Stage Renal Disease Problem List: (1) ESRD (end stage renal disease) Plan: Seen during dialysis on a 3K, 300 BFR, goal 2L continue TTS dialysis support transfuse with dialysis today continue present medications renal diet with no protein restriction avoid IVF, gadolinium will order protein supplement she has existing outpatient arrangements, can be discharged when clinically improved and after receiving iron (2) HTN (hypertension) Plan: BP acceptable continue home medications (3) Anemia Plan: Hb lower, continue epogen with dialysis transfuse one unit today minimize lab draws iron stores low, give venofer prior to discharge (4) Acute respiratory failure with hypoxia Plan: being treated for pneumonia ordered Levaquin but patient reports an allergy to this, she is refusing states she can take Azithromycin oxygen as needed (5) Small cell lung cancer Plan: former smoker, currently undergoing radiation therapy outpatient (Milana Sandoval) Plan patient was seen and examined. Agree with above assessment and plan. Seen during dialysis. Received blood transfusion at dialysis today. Can be discharged today after dialysis. (Gt Trejo MD) Milana Sandoval July 07, 2016 09:18 Gt Trejo MD July 07, 2016 12:27
[2016-07-07 10:12] LABS: TRANSFERRIN IRON PROFILE 95 MG/DL (200-360)
--- NOTE | 2016-07-07 11:13 | HHI.PR ---
Subjective Remarks Follow-up acute respiratory failure 07/06/16-patient seen and examined, denies any shortness of breath, chest pain or palpitation. No acute event overnight. BP now much more improved. Patient denies any headache. 07/07/16-patient seen and examined, she was in dialysis. She will receive 1 unit packed red cell Objective Vitals Vital Signs Date Time Temp Pulse Resp B/P Pulse Ox O2 Delivery O2 Flow Rate FiO2 07/07/16 08:30 18 07/07/16 05:10 97.1 86 16 126/66 92 07/07/16 05:00 80 07/07/16 04:00 66 07/07/16 03:00 64 07/07/16 02:00 62 07/07/16 01:00 66 07/07/16 00:00 70 07/06/16 23:00 82 07/06/16 22:50 100.8 89 14 151/60 95 07/06/16 22:00 74 07/06/16 21:03 92 Nasal Cannula 3.50 07/06/16 21:00 82 07/06/16 20:45 Nasal Cannula 3.00 07/06/16 20:45 99.7 85 14 138/50 97 07/06/16 20:00 82 07/06/16 19:00 78 07/06/16 18:00 76 07/06/16 17:00 76 07/06/16 16:00 66 07/06/16 16:00 98.2 66 18 123/48 94 07/06/16 15:00 68 07/06/16 14:00 62 07/06/16 13:00 58 07/06/16 12:27 3.00 07/06/16 12:00 56 07/06/16 12:00 98.2 58 16 119/36 97 07/06/16 11:00 58 I/O 07/06/16 07/06/16 07/06/16 07/07/16 07/07/16 07/07/16 07:00 15:00 23:00 07:00 15:00 23:00 Intake Total 480 ml 780 ml 480 ml Output Total 300 ml 300 ml Balance 180 ml 480 ml 480 ml Intake Oral 480 ml 780 ml 480 ml IV Total 0 ml 0 ml Output Urine Total 300 ml 300 ml Stool Total 0 ml # Voids 2 3 # Bowel Movements 1 0 Result Diagram: 07/07/16 0530 07/07/16 0530 Objective Remarks GENERAL: NAD and o and m supervisor to HD machine SKIN: Warm and dry. HEAD: Normocephalic. EYES: No scleral icterus. No injection or drainage. NECK: Supple, trachea midline. No JVD or lymphadenopathy. CARDIOVASCULAR: Regular rate and rhythm without murmurs, gallops, or rubs. RESPIRATORY: Breath sounds equal bilaterally. No accessory muscle use. GASTROINTESTINAL: Abdomen soft, non-tender, nondistended. MUSCULOSKELETAL: No cyanosis, or edema. BACK: Nontender without obvious deformity. No CVA tenderness. Procedures None A/P Problem List: (1) Acute respiratory failure with hypoxia ICD Code: J96.01 Status: Acute (2) ESRD (end stage renal disease) ICD Code: N18.6 Status: Acute (3) Small cell lung cancer ICD Code: C34.90 Status: Acute Assessment and Plan 81-year-old female with - Acute respiratory failure with hypoxia-resolved - Acute pulmonary edema - Probable Pneumonia - CXR shows diffuse pulmonary edema. - Supplemental O2 to keep O2 sat > 90%. And continue with DuoNeb when necessary as well as Levaquin 500mg every other day x 3 doses. - Walk test for home oxygen performed - ESRD - Nephrology ff. HD T, , S -Anemia of chronic blood loss/chronic kidney disease Transfuse 1 unit packed red blood cell during dialysis today 07/07/16 and monitor H&H Check iron study as well as fecal occult blood test and treat accordingly - Hypertension -continue losartan 100 mg daily, metoprolol succinate 25 mg daily , clonidine 0.2 mg by mouth every 8 hours, nifedipine 90 mg by mouth daily. - Clonidine 0.1 mg when necessary - Hypothyroidism - continue levothyroxine 100 g daily. - Hyperlipidemia: Currently on TriCor and Lipitor - Small cell lung cancer - currently undergoing radiation therapy. Followed by Dr. Gonsalez (Heme/Onc). Full code. Heparin SQ Patrice Madison MD July 07, 2016 11:01
[2016-07-07] MEDS: EPOETIN ALFA 10,000 UNITS/ML VIAL IV PRN (11:39)
[2016-07-07] MEDS: GELATIN 12 MM/7 MM FOAM TOP PRN (12:03)
[2016-07-07] MEDS ORDERED: IRON SUCROSE INJ 100 MG in SODIUM CHLORIDE 0.9% INJ 100 ML IV ONE (13:00)
[2016-07-07] MEDS: PANTOPRAZOLE SOD 40 MG DELAYED RELEASE TAB PO SCH (14:14)
[2016-07-07] MEDS: NIFEdipine 90 MG SUSTAINED RELEASE TAB PO SCH (14:14)
[2016-07-07] MEDS: ASPIRIN EC 81 MG TABEC PO SCH (14:14)
[2016-07-07] MEDS: METOPROLOL SUCCINATE 25 MG EXTENDED RELEASE TAB PO SCH (14:14)
[2016-07-07] MEDS: CALCITRIOL 0.25 MCG CAP PO SCH (14:14)
[2016-07-07] MEDS: FENOFIBRATE 48 MG TAB PO SCH (14:14)
[2016-07-07] MEDS: ATORVASTATIN 10 MG TAB PO SCH (20:05)
[2016-07-07] MEDS: FLUoxetine HCL 20 MG CAP PO SCH (20:06)
[2016-07-07] MEDS: RESP: ALBUTEROL 2.5 MG/3 ML NEB (PRN) NEB (20:40)
[2016-07-08] VITALS (15 sets, daily range): BP systolic 95–145; BP diastolic 48–82; PULSE 62–82; RESP 14–18; TEMP 98.6–99.4; O2SAT 85–96
[2016-07-08] MEDS: ACETAMINOPHEN/HYDROcodone 325 MG/5 MG TAB PO PRN ×3 (02:49→12:26)
[2016-07-08] MEDS: HEPARIN SODIUM - SQ 10,000 UNITS/ML VIAL SQ SCH (02:49)
[2016-07-08] MEDS: cloNIDine HCL 0.2 MG TAB PO SCH (06:00)
[2016-07-08] MEDS: LEVOTHYROXINE SODIUM 100 MCG TAB PO SCH (07:10)
[2016-07-08] MEDS: RESP: ALBUTEROL 2.5 MG/IPRATROPIUM 0.5 MG NEB (SCH) NEB (07:42)
[2016-07-08] MEDS: RESP: ALBUTEROL 2.5 MG/3 ML NEB (PRN) NEB ×2 (07:58→13:05)
[2016-07-08 08:52] LABS: AUTOMATED NEUTROPHIL # 4.8 TH/MM3 (1.8-7.7); BASOPHIL % 0.4 % (0.0-2.0); EOSINOPHIL # 0.1 TH/MM3 (0-0.4); EOSINOPHIL % 0.9 % (0.0-4.0); HEMATOCRIT 22.5 % (35.0-46.0); HEMO FLAGS DIFF FINAL; LYMPH % 10.2 % (9.0-44.0); LYMPHOCYTE # 0.6 TH/MM3 (1.0-4.8); MEAN CELL VOLUME 89.6 FL (80.0-100.0); MEAN CORPUSCULAR HEMOGLOBIN 30.4 PG (27.0-34.0); MEAN CORPUSCULAR HGB CONC 33.9 % (32.0-36.0); MONO % 6.6 % (0.0-8.0); NEUT % 81.9 % (16.0-70.0); PLATELET COUNT 136 TH/MM3 (150-450); RED BLOOD COUNT 2.51 MIL/MM3 (4.00-5.30); RED CELL DISTRIBUTION WIDTH 16.8 % (11.6-17.2); WHITE BLOOD COUNT 5.8 TH/MM3 (4.0-11.0)
[2016-07-08] MEDS: SODIUM CHLORIDE 0.9% FLUSH 10 ML FLUSH IV FLUSH SCH (09:00)
[2016-07-08] MEDS: METOPROLOL SUCCINATE 25 MG EXTENDED RELEASE TAB PO SCH (09:00)
[2016-07-08] MEDS: CALCITRIOL 0.25 MCG CAP PO SCH (09:20)
[2016-07-08] MEDS: PANTOPRAZOLE SOD 40 MG DELAYED RELEASE TAB PO SCH (09:20)
[2016-07-08] MEDS: LOSARTAN 50 MG TAB PO SCH (09:20)
[2016-07-08] MEDS: ASPIRIN EC 81 MG TABEC PO SCH (09:20)
[2016-07-08] MEDS: NIFEdipine 90 MG SUSTAINED RELEASE TAB PO SCH (09:20)
[2016-07-08] MEDS: SUCRALFATE 1 GM TAB PO SCH (09:20)
--- NOTE | 2016-07-08 09:22 | HHI.NPPN ---
Subjective Complaints: Shortness of Breath General Problems: Anemia, Hypertension Renal Failure: Chronic, End Stage Renal Disease Interval History Coughing. Complaining of back pain. She had dialysis yesterday. (Milana Sandoval) Review of Systems General Constitutional: Fatigue (Milana Sandoval) Respiratory Lungs: SOB, Cough, Wheeze (Milana Sandoval) Cardiovascular Cardiac: Edema, MARTIN (Milana Sandoval) Objective Data Data 07/07/16 07/08/16 19:00 07:00 Intake Total 720 ml Output Total 2000 ml Balance -2000 ml 720 ml Intake Oral 720 ml Hemodialysis 2000 ml # Voids 4 Vital Signs Date Time Temp Pulse Resp B/P Pulse Ox O2 Delivery O2 Flow Rate FiO2 07/08/16 04:21 98.6 66 14 108/48 94 07/08/16 04:00 62 07/08/16 03:00 68 07/08/16 02:00 62 07/08/16 01:00 62 07/08/16 00:00 64 07/07/16 23:16 98.6 70 14 136/62 91 07/07/16 23:00 70 07/07/16 22:00 70 07/07/16 21:00 82 07/07/16 20:41 93 Nasal Cannula 3.00 07/07/16 20:18 90 Nasal Cannula 3.00 07/07/16 20:15 98.4 68 14 124/64 90 07/07/16 20:00 66 07/07/16 19:00 69 07/07/16 18:14 18 07/07/16 18:00 66 07/07/16 17:00 74 07/07/16 16:00 73 07/07/16 16:00 98.0 78 18 160/62 94 07/07/16 14:00 78 07/07/16 13:00 76 07/07/16 12:55 97.8 72 18 115/56 92 07/07/16 12:00 68 07/07/16 11:00 64 07/07/16 10:00 62 (Milana Sandoval) -: 07/08/16 0759 07/07/16 0530 Imaging Last 72 hours Impressions Upper Extremity Ultrasound 07/06/16 0000 Signed Impressions: Service Date/Time: Wednesday, July 06, 2016 21:58 - CONCLUSION: 1. Hematoma adjacent to cephalic vein without evidence for pseudoaneurysm. Nonocclusive thrombus right cephalic vein. Sebastien Hastings MD (Milana Sandoval) Physical Exam General Appearance: Well Developed, No Acute Distress, Comfortable (Milana Sandoval EMBEDDED DEVELOPER) Eyes Eye Exam: Pupils Equal (Milana Sandoval) Throat Throat Exam: Oral Mucosa [place] & Moist (Milana Sandoval EMBEDDED DEVELOPER) Neck Neck Exam: Trachea Midline (Milana Sandoval EMBEDDED DEVELOPER) Pulmonary Resp Exam: Breath Sounds Equal, No Distress, Rhonchi, Sputum, Decreased Bases, Diminished Breath Sounds (Milana Sandoval EMBEDDED DEVELOPER) Cardiology CV Exam: Regular, Normal Sinus Rhythm, Good Perfusion (Milana SandovalP) Gastrointestinal/Abdomen GI Exam: Soft, Non-Tender, Bowel Sounds Present (Milana Sandoval) Musculoskeletal MS Exam: Joints Intact, Good Strength (Milana Sandoval) Integumentary Skin Exam: Clear, Warm, Dry, Intact (Milana Sandoval) Extremeties Extremities Exam: No Edema, Pedal Pulses Palpable Extremeties Remarks LUE AVF, + thrill/bruit (Milana Sandoval) Neurologic Neuro Exam: Alert, Awake, Oriented, Speech Clear, Moving All Extremities ( Milana Sandoval) Psychiatric Psych Exam: Appropriate Responses (Milana Sandoval) Assessment/Plan Discussed Condition With: Patient Assessment Summary: Anemia of CKD, Fluid/Volume Overload, Hypertension, End Stage Renal Disease Problem List: (1) ESRD (end stage renal disease) Plan: 2 liters fluid removal with dialysis yesterday stable from renal perspective continue TTS dialysis support, resume outpatient arrangements if discharged continue present medications renal diet with no protein restriction avoid IVF, gadolinium continue protein supplement stable for discharge today (2) HTN (hypertension) Plan: BP acceptable continue home medications (3) Anemia Plan: Hb improved, given one unit PRBC yesterday also given venover minimize lab draws okay to transfuse one more unit prior to discharge (4) Acute respiratory failure with hypoxia Plan: she is REFUSING to take antibiotics due to reported allergy to Levaquin consider changing Abx therapy states she can take Azithromycin oxygen as needed (5) Small cell lung cancer Plan: former smoker, currently undergoing radiation therapy outpatient (Milana Sandoval) Plan patient was seen and examined. She has iron deficiency. Ordered IV Venofer, later was told that she is going to be discharged. Called her outpatient clinic to continue Venofer. (Gt Trejo MD) Milana Sandoval July 08, 2016 09:22 Gt Trejo MD July 09, 2016 16:13
[2016-07-08] MEDS ORDERED: SODIUM CHLOR 0.9% 250 ML INJ 250 ML IV ONE (10:15)
--- NOTE | 2016-07-08 10:50 | HHI.PR ---
Subjective Remarks Follow-up acute respiratory failure 07/06/16-patient seen and examined, denies any shortness of breath, chest pain or palpitation. No acute event overnight. BP now much more improved. Patient denies any headache. 07/07/16-patient seen and examined, she was in dialysis. She will receive 1 unit packed red cell 07/08/16-patient seen and examined, denies any chest pain or shortness of breath. Objective Vitals Vital Signs Date Time Temp Pulse Resp B/P Pulse Ox O2 Delivery O2 Flow Rate FiO2 07/08/16 09:34 18 07/08/16 07:42 85 Nasal Cannula 3.00 07/08/16 04:21 98.6 66 14 108/48 94 07/08/16 04:00 62 07/08/16 03:00 68 07/08/16 02:00 62 07/08/16 01:00 62 07/08/16 00:00 64 07/07/16 23:16 98.6 70 14 136/62 91 07/07/16 23:00 70 07/07/16 22:00 70 07/07/16 21:00 82 07/07/16 20:41 93 Nasal Cannula 3.00 07/07/16 20:18 90 Nasal Cannula 3.00 07/07/16 20:15 98.4 68 14 124/64 90 07/07/16 20:00 66 07/07/16 19:00 69 07/07/16 18:00 66 07/07/16 17:00 74 07/07/16 16:00 73 07/07/16 16:00 98.0 78 18 160/62 94 07/07/16 14:00 78 07/07/16 13:00 76 07/07/16 12:55 97.8 72 18 115/56 92 07/07/16 12:00 68 07/07/16 11:00 64 I/O 07/07/16 07/07/16 07/07/16 07/08/16 07/08/16 07/08/16 07:00 15:00 23:00 07:00 15:00 23:00 Intake Total 480 ml 720 ml Output Total 2000 ml Balance 480 ml -2000 ml 720 ml Intake Oral 480 ml 720 ml IV Total 0 ml Hemodialysis 2000 ml # Voids 3 4 # Bowel Movements 0 Result Diagram: 07/08/16 0759 07/07/16 0530 Imaging Last Impressions Upper Extremity Ultrasound 07/06/16 0000 Signed Impressions: Service Date/Time: Wednesday, July 06, 2016 21:58 - CONCLUSION: 1. Hematoma adjacent to cephalic vein without evidence for pseudoaneurysm. Nonocclusive thrombus right cephalic vein. Sebastien Hastings MD Chest X-Ray 07/04/16 1003 Signed Impressions: Service Date/Time: Monday, July 04, 2016 10:14 - CONCLUSION: Bilateral lung opacity with perihilar predominance suggesting asymmetric pulmonary edema. Possible superimposed infection. Small left pleural effusion. Isac Yañez MD Objective Remarks GENERAL: NAD SKIN: Warm and dry. HEAD: Normocephalic. EYES: No scleral icterus. No injection or drainage. NECK: Supple, trachea midline. No JVD or lymphadenopathy. CARDIOVASCULAR: Regular rate and rhythm without murmurs, gallops, or rubs. RESPIRATORY: Breath sounds equal bilaterally. No accessory muscle use. GASTROINTESTINAL: Abdomen soft, non-tender, nondistended. MUSCULOSKELETAL: No cyanosis, or edema. BACK: Nontender without obvious deformity. No CVA tenderness. Procedures None A/P Problem List: (1) Acute respiratory failure with hypoxia ICD Code: J96.01 Status: Acute (2) ESRD (end stage renal disease) ICD Code: N18.6 Status: Acute (3) Small cell lung cancer ICD Code: C34.90 Status: Acute Assessment and Plan 81-year-old female with - Acute respiratory failure with hypoxia-resolved - Acute pulmonary edema - Probable Pneumonia - CXR shows diffuse pulmonary edema. - Supplemental O2 to keep O2 sat > 90%. And continue with DuoNeb when necessary as well as Levaquin 500mg every other day x 3 doses. - Patient will require home oxygen on discharge as other alternative measures were tried and were ineffective as patient failed respiratory walk test - ESRD - Nephrology ff. HD T, Th, S -Anemia of chronic blood loss/chronic kidney disease Transfused 1 unit packed red blood cell during dialysis 07/07/16 and monitor H&H - Hypertension -continue losartan 100 mg daily, metoprolol succinate 25 mg daily , clonidine 0.2 mg by mouth every 8 hours, nifedipine 90 mg by mouth daily. - Clonidine 0.1 mg when necessary - Hypothyroidism - continue levothyroxine 100 g daily. - Hyperlipidemia: Currently on TriCor and Lipitor - Small cell lung cancer - currently undergoing radiation therapy. Followed by Dr. Gonsalez (Heme/Onc). Full code. Heparin SQ Patrice Madison MD July 08, 2016 10:50 Patrice Madison MD July 08, 2016 10:50
--- NOTE | 2016-07-08 10:59 | HHI.DS ---
Discharge Summary Admission Date July 04, 2016 at 12:31 Discharge Date: July 08, 2016 Admitting Diagnosis COPD exacerbation, pulmonary edema (1) Acute respiratory failure with hypoxia ICD Code: J96.01 (2) ESRD (end stage renal disease) ICD Code: N18.6 (3) Small cell lung cancer ICD Code: C34.90 Procedures None Brief History - From Admission Ms. Calderon is a pleasant 81 year old female with a history of small cell lung cancer, ESRD, COPD who presented to the ED on 07/04/2016 due to shortness of breath that started two days prior to this admission. She reports severe orthopnea. She had to sit at the side of the bed pretty much all night last night due to orthopnea. She reports increased cough but no fever, chills. She is on Wednesday, , Wednesday dialysis schedule. However, she missed her dialysis on 07/02/2016. Denies any chest pain, abdominal pain. She is currently undergoing radiation treatments and follows Dr. Gonsalez (Medical Oncologist). Upon arrival, her O2 saturation was 70%, 64% on room air. She required BiPAP in the ED. However, subsequently she tolerated nasal cannula with reasonable O2 saturation. CXR shows bilateral pulmonary edema and possible superimposed infection. CBC/BMP: 07/08/16 0759 07/07/16 0530 Significant Findings Laboratory Tests Test 07/07/16 07/08/16 05:30 07:59 Red Blood Count 2.19 MIL/MM3 2.51 MIL/MM3 (4.00-5.30) (4.00-5.30) Hemoglobin 6.8 GM/DL 7.6 GM/DL (11.6-15.3) (11.6-15.3) Hematocrit 20.3 % 22.5 % (35.0-46.0) (35.0-46.0) Neutrophils (%) (Auto) 78.0 % 81.9 % (16.0-70.0) (16.0-70.0) Monocytes (%) (Auto) 9.9 % (0.0-8.0) Lymphocytes # (Auto) 0.7 TH/MM3 0.6 TH/MM3 (1.0-4.8) (1.0-4.8) Sodium Level 134 MEQ/L (136-145) Chloride Level 97 MEQ/L (98-107) Blood Urea Nitrogen 60 MG/DL (7-18) Creatinine 3.20 MG/DL (0.50-1.00) Estimat Glomerular Filtration 14 ML/MIN (>89) Rate Iron Level 13 MCG/DL (50-170) Total Iron Binding Capacity 133 MCG/DL (250-450) Percent Iron Saturation 9.8 % (20-50) Albumin 2.1 GM/DL (3.4-5.0) Platelet Count 136 TH/MM3 (150-450) Imaging Last Impressions Upper Extremity Ultrasound 07/06/16 0000 Signed Impressions: Service Date/Time: Wednesday, July 06, 2016 21:58 - CONCLUSION: 1. Hematoma adjacent to cephalic vein without evidence for pseudoaneurysm. Nonocclusive thrombus right cephalic vein. Sebastien Hastings MD Chest X-Ray 07/04/16 1003 Signed Impressions: Service Date/Time: Monday, July 04, 2016 10:14 - CONCLUSION: Bilateral lung opacity with perihilar predominance suggesting asymmetric pulmonary edema. Possible superimposed infection. Small left pleural effusion. Isac Yañez MD PE at Discharge GENERAL: NAD SKIN: Warm and dry. HEAD: Normocephalic. EYES: No scleral icterus. No injection or drainage. NECK: Supple, trachea midline. No JVD or lymphadenopathy. CARDIOVASCULAR: Regular rate and rhythm without murmurs, gallops, or rubs. RESPIRATORY: Breath sounds equal bilaterally. No accessory muscle use. GASTROINTESTINAL: Abdomen soft, non-tender, nondistended. MUSCULOSKELETAL: No cyanosis, or edema. BACK: Nontender without obvious deformity. No CVA tenderness. Hospital Course - Acute respiratory failure with hypoxia-resolved - Acute pulmonary edema - Probable Pneumonia - CXR shows diffuse pulmonary edema. - Supplemental O2 to keep O2 sat > 90%. she was treated with DuoNeb when necessary as well as Levaquin 500mg every other day x 3 doses. - Patient will require home oxygen on discharge as other alternative measures were tried and were ineffective as patient failed respiratory walk test - ESRD - Nephrology ff. HD T, Th, S -Anemia of chronic blood loss/chronic kidney disease Transfused 1 unit packed red blood cell during dialysis 07/07/16 and monitor H&H - Hypertension -Treated with losartan 100 mg daily, metoprolol succinate 25 mg daily, clonidine 0.2 mg by mouth every 8 hours, nifedipine 90 mg by mouth daily. - Clonidine 0.1 mg when necessary - Hypothyroidism - Treated with levothyroxine 100 g daily. - Hyperlipidemia: Treated with TriCor and Lipitor - Small cell lung cancer - currently undergoing radiation therapy. Followed by Dr. Gonsalez (Heme/Onc). Full code. Heparin SQ Pt Condition on Discharge: Stable Discharge Disposition: Discharge Home Discharge Time: > 30 minutes Discharge Instructions DIET: Follow Instructions for: Renal Failure Diet Activities you can perform: Regular-No Restrictions Follow up Referrals: Nephrology - Next Day PCP Follow-up - 1 Week New Medications: Oxygen tank (Oxygen tank) 1 Ea Tank 2 LITER CLEMENTE.CANAlignMed CONTINUOUS Oxygen Concentrator Portable Gaseous 2 L/min via Nasal Cannula Continuous For 99 months HYPOXEMIA PREVENTION #2 CYLINDER Continued Medications: Albuterol 18 GM Inh (Ventolin Hfa 18 GM Inh) 90 Mcg/Act Aer 2 PUFF INH Q4H PRN SHORTNESS OF BREATH #1 Ref [address] (Aspirin Adult Low Strength) 81 Mg Tabdr 81 MG PO DAILY TAB Atorvastatin (Atorvastatin) 10 Mg Tab 10 MG PO HS Cholesterol Management Ref 0 TAB Calcitriol (Calcitriol) 0.25 Mcg Cap 0.25 MCG PO DAILY Calcium Supplement #30 Ref 0 CAP Clonidine (Catapres) 0.2 Mg Tab 0.2 MG PO Q8HR Blood Pressure Management #60 Ref 0 TAB Fenofibrate (Fenofibrate) 54 Mg Tab 54 MG PO AC LUNCH Cholesterol Management Ref 0 TAB Ferrous Sulfate (Ferrous Sulfate) 325 Mg Tab 325 MG PO BID Nutritional Supplement #30 Ref 0 TAB Fluoxetine (Fluoxetine) 20 Mg Tab 20 MG PO HS Depression Control Ref 0 TAB Fluticasone Nasal Holly (Flonase Nasal Holly) 50 Mcg/Act Holly 2 SPRAY EACH NARE DAILY PRN ALLERGIES #1 Ref 0 BOTTLE Hydrocodone-Acetaminophen (Hydrocodone-Acetaminophen) 5-325 mg Tab 1 TAB PO Q4H PRN pain 3-5 #30 TAB Levothyroxine (Levothyroxine) 100 Mcg Tab 100 MCG PO DAILY Thyroid Ref 0 TAB Losartan (Losartan) 100 Mg Tab 100 MG PO DAILY Blood Pressure Management Ref 0 TAB Lutein (Lutein) 20 Mg Cap 20 MG PO DAILY Nutritional Supplement Ref 0 CAP Metoprolol Succinate ER 24 HR (Metoprolol Succinate ER 24 HR) 25 Mg Tab 25 MG PO DAILY Blood Pressure Management Ref 0 TAB Morphine ER (Morphine ER) 15 Mg Tab 15 MG PO Q8H PRN pain Ref 0 TAB Multiple Vitamins W/ Minerals (Centrum Silver Adult 50+) 1 Tab Tab 1 TAB PO AC LUNCH Nifedipine (Nifedipine ER) 90 Mg Tab 90 MG PO DAILY Omeprazole (Omeprazole) 40 Mg Cap 40 MG PO DAILY #30 Ref 0 CAP Sennosides-Docusate Sodium (Senna S) 8.6-50 Mg Tab 4 TAB PO HS Sucralfate (Sucralfate) 1 Gm Tab 1 GM PO TID on empty stomach ULCER PREVENTION #90 Ref 0 TAB Discontinued Medications: Linagliptin (Tradjenta) 5 Mg Tab 5 MG PO DAILY Blood Sugar Management #30 Ref 0 TAB Ondansetron Odt (Zofran Odt) 4 Mg Tab 4 MG SL Q6HR PRN Nausea/Vomiting #7 Ref 0 TAB Prednisone (Prednisone) 20 Mg Tab 20 MG PO DAILY Ref 0 TAB Patrice Madison MD July 08, 2016 10:59
[2016-07-08] MEDS: LEVOFLOXACIN 500 MG TAB PO SCH ×2 (11:00→12:26)
[2016-07-08] MEDS ORDERED: IRON SUCROSE 100 MG/5 ML VIAL IV PUSH SCH (11:00)
[2016-07-08] MEDS: FENOFIBRATE 48 MG TAB PO SCH (11:00)
[2016-07-08] MEDS: ONDANSETRON HCL 4 MG/2 ML VIAL IV PRN (12:34)
== END 2016-07-08 14:00 | disposition home or self-care (01) | DRG 189 ==
LOC: NEPE 09:49 → NEDA 12:31 → HCIS 19:20
PROVIDERS: ADMIT Hospitalist; ATTEND Hospitalist
PROC: 5A09357 Assistance with Respiratory Ventilation, Less than 24 Consecutive Hours, Continuous Positive Airway Pressure (ICD-10-PCS; principal; 2016-07-04)
PROC: 5A1D60Z (ICD-10-PCS; 2016-07-04)
DX: J96.01 Acute respiratory failure with hypoxia (principal); J18.9 Pneumonia, unspecified organism; I13.2 Hypertensive heart and chronic kidney disease with heart failure and with stage 5 chronic kidney disease, or end stage renal disease; J44.0 Chronic obstructive pulmonary disease with (acute) lower respiratory infection; N18.6 End stage renal disease; C34.90 Malignant neoplasm of unspecified part of unspecified bronchus or lung; E11.22 Type 2 diabetes mellitus with diabetic chronic kidney disease; D63.1 Anemia in chronic kidney disease; I50.9 Heart failure, unspecified; K21.9 Gastro-esophageal reflux disease without esophagitis; E03.9 Hypothyroidism, unspecified; E78.5 Hyperlipidemia, unspecified; F32.9 Major depressive disorder, single episode, unspecified; Z87.891 Personal history of nicotine dependence; Z88.1 Allergy status to other antibiotic agents; Z88.5 Allergy status to narcotic agent; Z90.49 Acquired absence of other specified parts of digestive tract; Z91.041 Radiographic dye allergy status; Z92.3 Personal history of irradiation; Z99.2 Dependence on renal dialysis
CPT/HCPCS: 36430; 36600; 71010; 77336; 77373; 77435; 80048; 80069; 82550; 82805; 82948; 83540; 83550; 84484; 85025; 85610; 85730; 86850; 86900; 86901; 86920; 87040; 90935; 93005; 93931; 94002; 94620; 94640; 94664; 96374; 96375; J1644; J1756; J2405; J2930; J7030; J7613; P9016; Q4081

== ENCOUNTER 2016-07-08 21:52 | Inpatient (IN) | payer OTHER, MEDICARE ==
[~2016-07-08] VITALS: Ht 154.9 cm; Wt 51.3 kg
[~2016-07-08 21:52] MED LIST changes: +OXYGENTANK NAS.CANULA; -PROC10003 SQ
[2016-07-08 22:00] VITALS: BP 117/55; PULSE 98; RESP 26; TEMP 99.4; O2SAT 88
[2016-07-08] MEDS ORDERED: SODIUM CHLORIDE 0.9% FLUSH 10 ML FLUSH IVF PRN (22:15)
[2016-07-08 22:16] VITALS: PULSE 80; RESP 26
--- NOTE | 2016-07-08 22:18 | PD ---
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 Gonsalez, ESRD on HD / (last HD Wednesday), HTN, COPD, hypothyroidism was brought in by [facility] for multiple complaints. Pt was admitted 07/04/16-07/08/16 for pulmonary edema and COPD exacerbation and just discharged today. Pt states she was still short of breath and feels generalized weakness. States she feels so weak, she is unable to walk. +Nonbloody diarrhea that started today. Pt was given levaquin during her hospital stay. Denies any chest pain, vomiting, abdominal pain, focal weakness or numbness. As per [facility], pt had temperature of 100.4F and blood pressure was low in the 80s to 90s systolic. Pt afebrile here and BP is 117/55 after 150cc of IVF from [facility]. PFSH Past Medical History Hx Anticoagulant Therapy: Yes Asthma: No Blood Disorders: No Anxiety: No Depression: No Heart Rhythm Problems: No Cancer: No Cardiovascular Problems: Yes (HTN, CHF) High Cholesterol: Yes Chest Pain: No Congestive Heart Failure: Yes COPD: Yes Diabetes: Yes Dialysis: Yes (Wed) Diminished Hearing: No Diverticulitis: Yes Endocrine: Yes Gastrointestinal Disorders: Yes (ACID REFLUX) Genitourinary: Yes (ESRD) Hepatitis: No Hiatal Hernia: No Hypertension: Yes Immune Disorder: No Musculoskeletal: Yes (CARPAL TUNNEL LT.; ARTHRITIS) Neurologic: No Psychiatric: No Reproductive: No Respiratory: Yes (COPD) Renal Failure: Yes (ESRD) Sleep Apnea: No Thyroid Disease: Yes (HYPOTHYROIDISM) Triglycerides - High: Yes : 5 Para: 5 Miscarriage: 0 : 0 Tubal Ligation: Yes Past Surgical History Abdominal Surgery: Yes (COLON RESECTION, HERNIA REPAIR, LYSIS OF ADHESIONS) AICD: No Appendectomy: Yes Arteriovenous Shunt: Yes (R CHEST ) Body Medical Devices: TITANIUM IN COLON ? Cholecystectomy: Yes (JAN 2016 ) Joint Replacement: No Pacemaker: No Thoracic Surgery: Yes (lt fistula ) Other Surgery: Yes (L WRIST ) Social History Alcohol Use: No Tobacco Use: No Substance Use: No Allergies-Medications (Allergen,Severity, Reaction): Coded Allergies: Contrast Media (Verified Allergy, Severe, Hives, 07/04/16) Flagyl (Verified Allergy, Severe, DIFFICULTY BREATHING, EXTREME NAUSEA, VOMITING, 07/04/16) Ativan (Verified Adverse Reaction, Intermediate, STOMACH UPSET, 07/04/16) Codeine (Verified Adverse Reaction, Intermediate, UPSET STOMACH, 07/04/16) Darvocet-N 100 (Verified Adverse Reaction, Intermediate, UPSET STOMACH, ) Darvon (Verified Adverse Reaction, Intermediate, UPSET STOMACH, 07/04/16) Levaquin (Verified Adverse Reaction, Intermediate, Nausea/Vomiting, ) patient said it gave her extreme anxiety also. Lopid (Verified Adverse Reaction, Intermediate, STOMACH UPSET, 07/04/16) Lovastatin (Verified Adverse Reaction, Intermediate, STOMACH UPSET, ) Questran (Verified Adverse Reaction, Intermediate, STOMACH UPSET, 07/04/16) Welchol (Verified Adverse Reaction, Intermediate, STOMACH UPSET, 07/04/16) Reported Meds & Prescriptions Reported Meds & Active Scripts Active Oxygen tank (Oxygen) 1 Ea Tank 2 Liter CLEMENTE.CANULA CONTINUOUS Oxygen Concentrator Portable Gaseous 2 L/min via Nasal Cannula Continuous For 99 months Hydrocodone-Acetaminophen 5-325 mg Tab 1 Tab PO Q4H PRN Reported Morphine ER (Morphine Sulfate) 15 Mg Tab 15 Mg PO Q8H PRN Nifedipine ER (Nifedipine) 90 Mg Tab 90 Mg PO DAILY Omeprazole 40 Mg Cap 40 Mg PO DAILY Sucralfate 1 Gm Tab 1 Gm PO TID on empty stomach Losartan (Losartan Potassium) 100 Mg Tab 100 Mg PO DAILY Levothyroxine (Levothyroxine Sodium) 100 Mcg Tab 100 Mcg PO DAILY Flonase Nasal [place] (Fluticasone Nasal [place]) 50 Mcg/Act [place] 2 Quin[place] EACH NARE DAILY PRN Centrum Silver Adult 50+ (Multiple Vitamins W/ Minerals) 1 Tab Tab 1 Tab PO AC LUNCH Senna S (Sennosides-Docusate Sodium) 8.6-50 Mg Tab 4 Tab PO HS Lutein 20 Mg Cap 20 Mg PO DAILY Ferrous Sulfate 325 Mg Tab 325 Mg PO BID Fluoxetine (Fluoxetine HCl) 20 Mg Tab 20 Mg PO HS Fenofibrate 54 Mg Tab 54 Mg PO AC LUNCH Catapres (Clonidine) 0.2 Mg Tab 0.2 Mg PO Q8HR Atorvastatin (Atorvastatin Calcium) 10 Mg Tab 10 Mg PO HS Calcitriol 0.25 Mcg Cap 0.25 Mcg PO DAILY Aspirin Adult Low Strength (Aspirin) 81 Mg Tabdr 81 Mg PO DAILY Ventolin Hfa 18 GM Inh (Albuterol Sulfate) 90 Mcg/Act Aer 2 Puff INH Q4H PRN Metoprolol Succinate ER 24 HR (Metoprolol Succinate) 25 Mg Tab 25 Mg PO DAILY Review of Systems Except as stated in HPI: all other systems reviewed are Neg Physical Exam Narrative GENERAL: 81yo F in mild distress. SKIN: Focused skin assessment warm/dry. HEAD: Atraumatic. Normocephalic. EYES: Pupils equal and round. No scleral icterus. No injection or drainage. ENT: No nasal bleeding or discharge. Mucous membranes pink and moist. NECK: Trachea midline. No JVD. CARDIOVASCULAR: Regular rate and rhythm. No murmur appreciated. RESPIRATORY: + accessory muscle use. Crackles bilaterally. GASTROINTESTINAL: Abdomen soft, non-tender, softly distended. No rebound tenderness or guarding. MUSCULOSKELETAL: No obvious deformities. No clubbing. No cyanosis. No edema. NEUROLOGICAL: Awake and alert. No obvious cranial nerve deficits. Motor grossly within normal limits. Normal speech. PSYCHIATRIC: Appropriate mood and affect; insight and judgment normal. Data Data Last Documented VS Vital Signs Date Time Temp Pulse Resp B/P Pulse Ox O2 Delivery O2 Flow Rate FiO2 07/09/16 01:00 88 38 103/48 91 Nasal Cannula 2 07/08/16 23:51 55 07/08/16 22:00 99.4 Orders Complete Blood Count With Diff (07/08/16 22:09) B-Type Natriuretic Peptide (07/08/16 22:09) Act Partial Throm Time (Ptt) (07/08/16 22:09) Prothrombin Time / Inr (Pt) (07/08/16 22:09) Arterial Blood Gas (Abg) (07/08/16 22:09) Blood Culture (07/08/16 22:09) Iv Access Insert/Monitor (07/08/16 22:09) Electrocardiogram (07/08/16 22:09) Ecg Monitoring (07/08/16 22:09) Oximetry (07/08/16 22:09) Oxygen Administration (07/08/16 22:09) Chest, Single Ap (07/08/16 22:09) Sodium Chloride 0.9% Flush (Ns Flush) (07/08/16 22:15) Albuterol-Ipratropium Neb (Duoneb Neb) (07/08/16 22:15) Lactic Acid Sepsis Protocol (07/08/16 22:09) Thyroid Stimulating Hormone (07/08/16 22:11) Electrocardiogram (07/08/16 ) Albuterol Neb (Albuterol Neb) (07/08/16 23:15) Albuterol Neb (Albuterol Neb) (07/08/16 23:15) Albuterol Neb (Albuterol Neb) (07/08/16 23:15) Vancomycin Inj (Vancomycin Inj) (07/09/16 00:00) Piperacil-Tazo 2.25 Gm Premix (Zosyn 2.2 (07/09/16 00:00) Basic Metabolic Panel (Bmp) (07/08/16 22:20) Ckmb (Isoenzyme) Profile (07/08/16 22:20) Troponin I (07/08/16 22:20) Urinalysis - C+S If Indicated (07/09/16 00:37) Admit Order (Ed Use Only) (07/09/16 01:08) Labs Laboratory Tests Test 07/08/16 22:20 White Blood Count 12.1 TH/MM3 Red Blood Count 2.65 MIL/MM3 Hemoglobin 7.8 GM/DL Hematocrit 24.0 % Mean Corpuscular Volume 90.7 FL Mean Corpuscular Hemoglobin 29.5 PG Mean Corpuscular Hemoglobin 32.5 % Concent Red Cell Distribution Width 16.9 % Platelet Count 157 TH/MM3 Mean Platelet Volume 8.4 FL Neutrophils (%) (Auto) 88.7 % Lymphocytes (%) (Auto) 3.5 % Monocytes (%) (Auto) 7.5 % Eosinophils (%) (Auto) 0.0 % Basophils (%) (Auto) 0.3 % Neutrophils # (Auto) 10.8 TH/MM3 Lymphocytes # (Auto) 0.4 TH/MM3 Monocytes # (Auto) 0.9 TH/MM3 Eosinophils # (Auto) 0.0 TH/MM3 Basophils # (Auto) 0.0 TH/MM3 CBC Comment DIFF FINAL Differential Comment Prothrombin Time 10.5 SEC Prothromb Time International 1.0 RATIO Ratio Activated Partial 31.9 SEC Thromboplast Time Blood Gas Puncture Site R Blood Gas Patient Temperature 98.6 Blood Gas HCO3 28 mmol/L Blood Gas Base Excess 3.5 mmol/L Blood Gas Oxygen Saturation 88 % Arterial Blood pH 7.43 Arterial Blood Partial 42 mmHg Pressure CO2 Arterial Blood Partial 60 mmHG Pressure O2 Arterial Blood Oxygen Content 9.9 Vol % Arterial Blood 1.9 % Carboxyhemoglobin Arterial Blood Methemoglobin 0.8 % Blood Gas Hemoglobin 7.9 G/DL Oxygen Delivery Device BiPAP Blood Gas Ventilator Setting 16/6 Blood Gas Inspired Oxygen 60 % B-Type Natriuretic Peptide 845 PG/ML Sodium Level 135 MEQ/L Potassium Level 4.1 MEQ/L Chloride Level 96 MEQ/L Carbon Dioxide Level 28.3 MEQ/L Anion Gap 11 MEQ/L Blood Urea Nitrogen 45 MG/DL Creatinine 3.08 MG/DL Estimat Glomerular Filtration 14 ML/MIN Rate Random Glucose 146 MG/DL Lactic Acid Level 2.7 mmol/L Calcium Level 8.5 MG/DL Total Creatine Kinase 90 U/L Troponin I 0.09 NG/ML Thyroid Stimulating Hormone 1.230 uIU/ML 3rd Gen [facility] Medical Decision Making Medical Screen Exam Complete: Yes Emergency Medical Condition: Yes Interpretation(s) EKG: NSR 75bpm. LAD. TWI V2. No ST segment elevation or depression. Differential Diagnosis Dehydration vs. UTI vs. COPD exacerbation vs. CHF vs. pneumonia Narrative Course 81yo F who was just discharged here with generalized weakness and continued sob. Labs reviewed, leukocytosis at 12.1. H/H is low but at baseline. Lactic acid is elevated at 2.7. BNP is elevated at 845. Pt is due for HD today so will help with fluid overload. CXR showed perihilar infiltrates left greater than right. Stable exam since the . Since pt meets sepsis criteria, will cover with antibiotics. Pt given vancomycin and zosyn. Although pt meets SIRS criteria, I feel she is fluid overloaded based on exam and lab work so I did not give her extra IVF on top of her antibiotics. BUN/creatinine elevated at 45 /3.08 which is at baseline. Troponin mildly elevated at 0.09 which pt has had before. Pt reevaluated at bedside and feels a little better. Pt seems worst than baseline and has worsening generalized weakness that she cannot walk so will admit for observation for pulmonary edema, sepsis secondary to pneumonia. UA pending. Discussed with Dr. Lopez and accepted to her service. Diagnosis Primary Impression: Sepsis Qualified Code: A41.9 - Sepsis, due to unspecified organism Admitting Information Admitting Physician Requests: Observation Vivian Hicks DO July 08, 2016 22:18
[2016-07-08] MEDS: RESP: ALBUTEROL 2.5 MG/IPRATROPIUM 0.5 MG NEB (SCH) INH (22:19)
[2016-07-08 22:56] LABS: APTT (PATIENT) 31.9 SEC (24.3-30.1); PROTHROMBIN TIME - PATIENT 10.5 SEC (9.8-11.6)
[2016-07-08 22:57] LABS: BLOOD GAS BASE EXCESS 3.5 mmol/L (-2-2); BLOOD GAS CARBOXYHEMOGLOBIN 1.9 % (0-4); BLOOD GAS HCO3 28 mmol/L (22-26); BLOOD GAS METHEMOGLOBIN 0.8 % (0-2); BLOOD GAS O2 HGB SATURATION 88 % (90-100); BLOOD GAS OXYGEN CONTENT 9.9 Vol % (12.0-20.0); BLOOD GAS PCO2 42 mmHg (38-42); BLOOD GAS PO2 60 mmHG (61-120); BLOOD GAS TOTAL HGB 7.9 G/DL (12.0-16.0); TEMP CORR TO 98.6
[2016-07-08 22:58] LABS: FIO2 60 %; NUMBER OF ARTERIAL PUNCTURES 1; OXYGEN DEVICE BiPAP; STAT YES; VENT SETTINGS 16/6
--- NOTE | 2016-07-08 22:58 | RADRPT ---
EXAM DATE/TIME: 07/08/2016 22:29 [facility] COMPARISON: CHEST SINGLE AP, July 04, 2016, 10:14. INDICATIONS : Short of breath. MEDICAL HISTORY : Carcinoma, lung. Chronic obstructive pulmonary disease. Congestive heart failure. Hypercholeste rolemia. Hypertension. SURGICAL HISTORY : Central venous catheter placement. ENCOUNTER: Initial ACUITY: 1 day PAIN SCORE: 4/10 LOCATION: Bilateral chest FINDINGS: A single view of the chest demonstrates persistent perihilar vascular congestion left greater than ri ght. Small amount of infiltrate in both midlung zones.. The cardiac silhouette remains enlarged. Oss eous structures are intact. Status post vertebroplasty at 3 levels in the lower thoracic spine. Thong ed atherosclerotic disease CONCLUSION: Perihilar infiltrates left greater than right. Stable exam since the . Heart remains enlarged Scot Toro MD on July 08, 2016 at 22:56 Board Certified Radiologist. This report was verified electronically.
[2016-07-08 22:59] LABS: AUTOMATED NEUTROPHIL # 10.8 TH/MM3 (1.8-7.7); BASOPHIL % 0.3 % (0.0-2.0); HEMO FLAGS DIFF FINAL; LYMPH % 3.5 % (9.0-44.0); LYMPHOCYTE # 0.4 TH/MM3 (1.0-4.8); MEAN CELL VOLUME 90.7 FL (80.0-100.0); MEAN CORPUSCULAR HEMOGLOBIN 29.5 PG (27.0-34.0); MEAN CORPUSCULAR HGB CONC 32.5 % (32.0-36.0); MONO % 7.5 % (0.0-8.0); NEUT % 88.7 % (16.0-70.0); PLATELET COUNT 157 TH/MM3 (150-450); RED BLOOD COUNT 2.65 MIL/MM3 (4.00-5.30); RED CELL DISTRIBUTION WIDTH 16.9 % (11.6-17.2); WHITE BLOOD COUNT 12.1 TH/MM3 (4.0-11.0)
[2016-07-08] MEDS ORDERED: RESP: ALBUTEROL 2.5 MG/3 ML NEB (SCH) NEB ONE ×3 (23:15)
[2016-07-08 23:51] VITALS: O2SAT 96
[2016-07-09] VITALS (9 sets, daily range): BP systolic 100–144; BP diastolic 48–64; PULSE 74–91; RESP 18–38; TEMP 98–98.6; O2SAT 91–94
[2016-07-09] MEDS ORDERED: PIPERACIL-TAZO 2.25 GM PREMIX 50 ML IV ONE
[2016-07-09] MEDS ORDERED: VANCOMYCIN INJ 1,000 MG in SODIUM CHLOR 0.9% 250 ML INJ 250 ML IV ONE ×2
[2016-07-09 00:38] LABS: LACTIC ACID GHOST NOT REPORTABLE
[2016-07-09 01:00] LABS: BICARBONATE 28.3 MEQ/L (21.0-32.0); POTASSIUM 4.1 MEQ/L (3.5-5.1)
[2016-07-09] MEDS ORDERED: NALOXONE HCL 0.4 MG/ML AMP IV PRN (01:15)
[2016-07-09] MEDS ORDERED: RESP: ALBUTEROL 2.5 MG/IPRATROPIUM 0.5 MG NEB (PRN) NEB (01:15)
[2016-07-09] MEDS ORDERED: SODIUM CHLORIDE 0.9% FLUSH 10 ML FLUSH IV FLUSH PRN ×2 (01:15→08:30)
[2016-07-09] MEDS: HEPARIN SODIUM - SQ 10,000 UNITS/ML VIAL SQ SCH ×6 (02:11→21:12)
--- NOTE | 2016-07-09 02:58 | HHI.HP ---
HPI [facility] Primary [facility] Physician Terrell Olmstead MD Admission Diagnosis Pulmonary edema Diagnoses: Chief Complaint: generalized weakness, cough and diarrhea Travel History International Travel<30 Days: No Contact w/Intl Traveler <30 Da: No Traveled to Known Affected Are: No History of Present Illness Written by Flory Constantino, acting as scribe for Dr. Lopez on 07/09/16 at 04: 35. This is an 81-year-old female with a history of end-stage renal disease on hemodialysis, hypertension, diabetes type 2, peptic ulcer disease, Lung cancer treated with radiation treatments completed a total of 15 treatments 1 week ago. Patient was recently in the hospital from 07/04/16- . Patient retuned to the ER because, "My whole body collapsed." Patient reports that she became extremely weak had to have family members carry her to the bathroom at which time she had liquid diarrhea 3-4 times today. Diarrhea started today. Diarrhea associated with increased flatus. Patient denies abdominal pain. No evidence of black stool or red blood per rectum. Patient also has subjective fevers with sweats and chills Patient denies vomiting Patient does still produce urine denies dysuria. Patient also reports shortness of breath and cough productive of bright yellow sputum x 1 week. CXR reviewed and reveals: Perihilar infiltrates left greater than right. Stable exam since the . Heart remains enlarged. Patient was prescribed Levaquin while she was in the hospital, but she refused to take the Levaquin due to allergy. Review of Systems Except as stated in HPI: all other systems reviewed are Neg Past Family Social History Past Medical History Hypertension Dyslipidemia Diabetes type 2 COPD CHF End-stage renal disease on HD GERD Depression Hypothyroidism Past Surgical History cholecystectomy Left wrist surgery Colon resection and excellent hernia repair Lysis of adhesions Arteriovenous shunt placement Reported Medications Hydrocodone-Acetaminophen 5-325 mg Tab 1 Tab PO Q4H PRN Morphine ER (Morphine Sulfate) 15 Mg Tab 15 Mg PO Q8H PRN Nifedipine ER (Nifedipine) 90 Mg Tab 90 Mg PO DAILY Omeprazole 40 Mg Cap 40 Mg PO DAILY Sucralfate 1 Gm Tab 1 Gm PO TID on empty stomach Losartan (Losartan Potassium) 100 Mg Tab 100 Mg PO DAILY Levothyroxine (Levothyroxine Sodium) 100 Mcg Tab 100 Mcg PO DAILY Flonase Nasal [place] (Fluticasone Nasal [place]) 50 Mcg/Act Reading 2 Reading EACH NARE DAILY PRN Centrum Silver Adult 50+ (Multiple Vitamins W/ Minerals) 1 Tab Tab 1 Tab PO AC LUNCH Senna S (Sennosides-Docusate Sodium) 8.6-50 Mg Tab 4 Tab PO HS Lutein 20 Mg Cap 20 Mg PO DAILY Ferrous Sulfate 325 Mg Tab 325 Mg PO BID Fluoxetine (Fluoxetine HCl) 20 Mg Tab 20 Mg PO HS Fenofibrate 54 Mg Tab 54 Mg PO AC LUNCH Catapres (Clonidine) 0.2 Mg Tab 0.2 Mg PO Q8HR Atorvastatin (Atorvastatin Calcium) 10 Mg Tab 10 Mg PO HS Calcitriol 0.25 Mcg Cap 0.25 Mcg PO DAILY Aspirin Adult Low Strength (Aspirin) 81 Mg Tabdr 81 Mg PO DAILY Ventolin Hfa 18 GM Inh (Albuterol Sulfate) 90 Mcg/Act Aer 2 Puff INH Q4H PRN Metoprolol Succinate ER 24 HR (Metoprolol Succinate) 25 Mg Tab 25 Mg PO DAILY Allergies: Coded Allergies: Contrast Media (Verified Allergy, Severe, Hives, 07/04/16) Flagyl (Verified Allergy, Severe, DIFFICULTY BREATHING, EXTREME NAUSEA, VOMITING, 07/04/16) Ativan (Verified Adverse Reaction, Intermediate, STOMACH UPSET, 07/04/16) Codeine (Verified Adverse Reaction, Intermediate, UPSET STOMACH, 07/04/16) Darvocet-N 100 (Verified Adverse Reaction, Intermediate, UPSET STOMACH, ) Darvon (Verified Adverse Reaction, Intermediate, UPSET STOMACH, 07/04/16) Levaquin (Verified Adverse Reaction, Intermediate, Nausea/Vomiting, ) patient said it gave her extreme anxiety also. Lopid (Verified Adverse Reaction, Intermediate, STOMACH UPSET, 07/04/16) Lovastatin (Verified Adverse Reaction, Intermediate, STOMACH UPSET, ) Questran (Verified Adverse Reaction, Intermediate, STOMACH UPSET, 07/04/16) Welchol (Verified Adverse Reaction, Intermediate, STOMACH UPSET, 07/04/16) Active Ordered Medications Current Medications Medications (Trade) Dose Ordered Sig/Raheel Route Start Time Stop Time Status Last Admin (NS Flush) 2 ml UNSCH PRN IV FLUSH 07/09/16 01:15 (NS Flush) 2 ml BID IV FLUSH 07/09/16 09:00 (Heparin Inj) 5,000 units Q8H SQ 07/09/16 01:15 07/09/16 02:11 Naloxone HCl 0.4 mg 0.4 mg UNSCH PRN IV 07/09/16 01:15 (Maxipime Inj/NS Inj) 100 ml @ 200 mls/hr Q24H IV 07/09/16 09:00 Family History Mother has uterine cancer and of a heart attack Daughter had mastectomy secondary to breast cancer Sister secondary to lung cancer Social History Lives at home with and son is staying with them at this time Alcohol Use: Yes (rare) Tobacco Use: Quit 11 years ago Substance Use: No Physical Exam Vital Signs Vital Signs Date Time Temp Pulse Resp B/P Pulse Ox O2 Delivery O2 Flow Rate FiO2 07/09/16 01:00 88 38 103/48 91 Nasal Cannula 2 07/09/16 00:00 91 29 112/48 Nasal Cannula 2 07/08/16 23:51 96 55 07/08/16 22:16 80 26 Nasal Cannula 07/08/16 22:16 94 Nasal Cannula 4 07/08/16 22:08 27 93 Nasal Cannula 4 07/08/16 22:00 99.4 98 26 117/55 88 Physical Exam GENERAL: This is a well-nourished, well-developed patient, ill appearing SKIN: No rashes, ecchymoses or lesions. Cool and dry. HEAD: Atraumatic. Normocephalic. No temporal or scalp tenderness. EYES: Extraocular motions intact. No scleral icterus. No injection or drainage. CARDIOVASCULAR: Regular rate and rhythm without murmurs, gallops, or rubs. RESPIRATORY: coarse crackles through out, tachypnea. GASTROINTESTINAL: Abdomen soft, non-tender. hyperactive bowel sounds MUSCULOSKELETAL: Extremities without clubbing, cyanosis, or edema. No joint tenderness, effusion, or edema noted. No calf tenderness. Negative Homans sign bilaterally. NEUROLOGICAL: Awake and alert. no focal deficits identified. Motor and sensory grossly within normal limits. 4 out of 5 muscle strength in all muscle groups. Normal speech. Laboratory Laboratory Tests Test 07/08/16 07/09/16 22:20 01:20 White Blood Count 12.1 Red Blood Count 2.65 Hemoglobin 7.8 Hematocrit 24.0 Mean Corpuscular Volume 90.7 Mean Corpuscular Hemoglobin 29.5 Mean Corpuscular Hemoglobin 32.5 Concent Red Cell Distribution Width 16.9 Platelet Count 157 Mean Platelet Volume 8.4 Neutrophils (%) (Auto) 88.7 Lymphocytes (%) (Auto) 3.5 Monocytes (%) (Auto) 7.5 Eosinophils (%) (Auto) 0.0 Basophils (%) (Auto) 0.3 Neutrophils # (Auto) 10.8 Lymphocytes # (Auto) 0.4 Monocytes # (Auto) 0.9 Eosinophils # (Auto) 0.0 Basophils # (Auto) 0.0 CBC Comment DIFF FINAL Differential Comment Prothrombin Time 10.5 Prothromb Time International 1.0 Ratio Activated Partial 31.9 Thromboplast Time Blood Gas Puncture Site R Blood Gas Patient Temperature 98.6 Blood Gas HCO3 28 Blood Gas Base Excess 3.5 Blood Gas Oxygen Saturation 88 Arterial Blood pH 7.43 Arterial Blood Partial 42 Pressure CO2 Arterial Blood Partial 60 Pressure O2 Arterial Blood Oxygen Content 9.9 Arterial Blood 1.9 Carboxyhemoglobin Arterial Blood Methemoglobin 0.8 Blood Gas Hemoglobin 7.9 Oxygen Delivery Device BiPAP Blood Gas Ventilator Setting 16/6 Blood Gas Inspired Oxygen 60 B-Type Natriuretic Peptide 845 Sodium Level 135 Potassium Level 4.1 Chloride Level 96 Carbon Dioxide Level 28.3 Anion Gap 11 Blood Urea Nitrogen 45 Creatinine 3.08 Estimat Glomerular Filtration 14 Rate Random Glucose 146 Lactic Acid Level 2.7 1.3 Calcium Level 8.5 Total Creatine Kinase 90 Troponin I 0.09 Thyroid Stimulating Hormone 1.230 3rd Gen Date/Time Procedure Status Source Growth 07/08/16 22:20 Aerobic Blood Culture Received Blood Peripheral Pending 07/08/16 22:20 Anaerobic Blood Culture Received Blood Peripheral Pending Result Diagram: 07/08/16221907/08/162219 Imaging Last Impressions Chest X-Ray 07/08/162208 Signed Impressions: Service Date/Time: Friday, July 08, 2016 22:29 - CONCLUSION: Perihilar infiltrates left greater than right. Stable exam since the . Heart remains enlarged Scot Toro MD Assessment and Plan Problem List: (1) PNA (pneumonia) ICD Code: J18.9 Status: Acute (2) Diarrhea ICD Code: R19.7 Status: Acute (3) End stage renal disease on dialysis ICD Code: N18.6 Status: Chronic Assessment and Plan This is an 81-year-old female with a history of end-stage renal disease on hemodialysis, hypertension, diabetes type 2, peptic ulcer disease, Lung cancer treated with radiation treatments completed a total of 15 treatments 1 week ago. Patient was recently in the hospital from 07/04/16- . Patient also reports shortness of breath and cough productive of bright yellow sputum x 1 week. Patient was prescribed Levaquin while she was in the hospital, but she refused to take the Levaquin due to allergy. Patient also reports generalized weakness with liquid diarrhea. PNA fluid overload CXR reviewed and reveals: Perihilar infiltrates left greater than right. Stable exam since the . Heart remains enlarged sputum culture ordered BC x2 obtained and pending received Vancomycin and Zosyn in ER start Cefepime IV Albuterol neb Q6H and as needed diarrhea stool for C diff and enteric pathogens ESRD on HD- chronic Consult Nephrology for HD management Discussed with ER provider, nursing and Patient Discussed Condition With patient, ER MD< pts nurse Physician Certification 2 Midnight Certification Type: Admission for Inpatient Services Order for Inpatient Services The services are ordered in accordance with Medicare regulations or non- Medicare payer requirements, as applicable. In the case of services not specified as inpatient-only, they are appropriately provided as inpatient services in accordance with the 2-midnight benchmark. Estimated LOS (days): 3 days is the estimated time the patient will need to remain in the hospital, assuming treatment plan goals are met and no additional complications. Post-Hospital Plan: Home Flory Constantino July 09, 2016 02:58 Bertrand Lopez MD July 09, 2016 07:51
[2016-07-09] MEDS ORDERED: RESP: ALBUTEROL 2.5 MG/IPRATROPIUM 0.5 MG NEB (SCH) NEB (04:00)
[2016-07-09] MEDS ORDERED: RESP: ALBUTEROL 2.5 MG/3 ML NEB (PRN) NEB (04:15)
[2016-07-09] MEDS: RESP: ALBUTEROL 2.5 MG/3 ML NEB (SCH) NEB ×4 (04:39→22:00)
[2016-07-09 08:24] LABS: BACTERIA, URINE MOD /hpf; BLOOD, URINE MOD (NEG); COMMENT (UR) CULTURE INDICATED; CULTURE IF INDICATED CULTURE INDICATED; GLUCOSE,URINE NEG (NEG); KETONE, URINE NEG (NEG); MUCUS URINE FEW /lpf (OCC); NITRITE,URINE NEG (NEG); PH, URINE 5.5 (5.0-8.5); SQUAMOUS EPITHELIAL CELL URINE 1 /hpf (0-5); URINE COLOR YELLOW (YELLW/STRAW)
[2016-07-09] MEDS ORDERED: SODIUM CHLOR 0.9% 1000 ML INJ 1,000 ML IV PRN ×3 (08:27)
[2016-07-09] MEDS ORDERED: ALBUMIN HUMAN 25% 25 GM/100 ML BAGP IV PRN (08:30)
[2016-07-09] MEDS ORDERED: diphenhydrAMINE HCL 25 MG CAP PO PRN (08:30)
[2016-07-09] MEDS ORDERED: HEPARIN SODIUM - IV 10,000 UNITS/10 ML VIAL IVF PRN (08:30)
[2016-07-09] MEDS ORDERED: NITROGLYCERIN 0.4 MG SL 25 TABS/BTL SL PRN (08:30)
[2016-07-09] MEDS ORDERED: SODIUM CHLOR 0.9% 250 ML INJ 250 ML IV ONE (08:30)
[2016-07-09] MEDS ORDERED: cloNIDine HCL 0.1 MG TAB PO PRN (08:30)
[2016-07-09] MEDS ORDERED: GENTAMICIN SULFATE (DIALYSIS USE ONLY) 20 MG/2 ML VIAL IV PRN (08:30)
[2016-07-09] MEDS ORDERED: GELATIN 12 MM/7 MM FOAM TOP PRN (08:30)
[2016-07-09] MEDS ORDERED: HEPARIN SODIUM - IV 10,000 UNITS/10 ML VIAL PRN (08:30)
[2016-07-09] MEDS ORDERED: MANNITOL 12.5 GM/50 ML VIAL IV PRN (08:30)
[2016-07-09] MEDS ORDERED: IRON SUCROSE 100 MG/5 ML VIAL IV PUSH ONE (09:00)
[2016-07-09] MEDS ORDERED: CEFEPIME INJ 2,000 MG in SODIUM CHLORIDE 0.9% INJ 100 ML IV SCH (09:00)
--- NOTE | 2016-07-09 09:29 | PD.CONS ---
HPI Service Nephrology Consult Requested By Reason for Consult ESRD on HD Primary Care Physician Terrell Olmstead MD History of Present Illness This is an 81 y/o dialysis patient we follow out patient for ESRD. She was discharged yesterday after admission for hypoxia and anemia. After discharge apparently she collapsed, did not go to rehab after discharge. Today she is reporting weakness, fatigue, shortness of breath. PMH of ESRD, HTN, anemia, and NSCLC for which she recently finished palliative radiation therapy. She is seen during dialysis today. Now reporting diarrhea. We were consulted for dialysis management. (Milana Sandoval) Review of Systems Constitutional: COMPLAINS OF: Fatigue, DENIES: Fever Respiratory: COMPLAINS OF: Cough, Sputum production, Shortness of breath Cardiovascular: DENIES: Chest pain Gastrointestinal: COMPLAINS OF: Diarrhea, Anorexia, DENIES: Abdominal pain, Nausea (Milana Sandoval) Past Family Social History Allergies: Coded Allergies: Contrast Media (Verified Allergy, Severe, Hives, 07/04/16) Flagyl (Verified Allergy, Severe, DIFFICULTY BREATHING, EXTREME NAUSEA, VOMITING, 07/04/16) Ativan (Verified Adverse Reaction, Intermediate, STOMACH UPSET, 07/04/16) Codeine (Verified Adverse Reaction, Intermediate, UPSET STOMACH, 07/04/16) Darvocet-N 100 (Verified Adverse Reaction, Intermediate, UPSET STOMACH, ) Darvon (Verified Adverse Reaction, Intermediate, UPSET STOMACH, 07/04/16) Levaquin (Verified Adverse Reaction, Intermediate, Nausea/Vomiting, ) patient said it gave her extreme anxiety also. Lopid (Verified Adverse Reaction, Intermediate, STOMACH UPSET, 07/04/16) Lovastatin (Verified Adverse Reaction, Intermediate, STOMACH UPSET, ) Questran (Verified Adverse Reaction, Intermediate, STOMACH UPSET, 07/04/16) Welchol (Verified Adverse Reaction, Intermediate, STOMACH UPSET, 07/04/16) Past Medical History ESRD on HD Hypertension Dyslipidemia Diabetes type 2 COPD on chronic oxygen Anemia CHF GERD Depression Hypothyroidism Past Surgical History cholecystectomy Left wrist surgery Colon resection and excellent hernia repair Lysis of adhesions Arteriovenous shunt placement Reported Medications Oxygen tank (Oxygen) 1 Ea Tank 2 Liter CLEMENTE.CANULA CONTINUOUS Oxygen Concentrator Portable Gaseous 2 L/min via Nasal Cannula Continuous For 99 months Hydrocodone-Acetaminophen 5-325 mg Tab 1 Tab PO Q4H PRN Reported Morphine ER (Morphine Sulfate) 15 Mg Tab 15 Mg PO Q8H PRN Nifedipine ER (Nifedipine) 90 Mg Tab 90 Mg PO DAILY Omeprazole 40 Mg Cap 40 Mg PO DAILY Sucralfate 1 Gm Tab 1 Gm PO TID on empty stomach Losartan (Losartan Potassium) 100 Mg Tab 100 Mg PO DAILY Levothyroxine (Levothyroxine Sodium) 100 Mcg Tab 100 Mcg PO DAILY Flonase Nasal [place] (Fluticasone Nasal [place]) 50 Mcg/Act [place] 2 Nubieber EACH NARE DAILY PRN Centrum Silver Adult 50+ (Multiple Vitamins W/ Minerals) 1 Tab Tab 1 Tab PO AC LUNCH Senna S (Sennosides-Docusate Sodium) 8.6-50 Mg Tab 4 Tab PO HS Lutein 20 Mg Cap 20 Mg PO DAILY Ferrous Sulfate 325 Mg Tab 325 Mg PO BID Fluoxetine (Fluoxetine HCl) 20 Mg Tab 20 Mg PO HS Fenofibrate 54 Mg Tab 54 Mg PO AC LUNCH Catapres (Clonidine) 0.2 Mg Tab 0.2 Mg PO Q8HR Atorvastatin (Atorvastatin Calcium) 10 Mg Tab 10 Mg PO HS Calcitriol 0.25 Mcg Cap 0.25 Mcg PO DAILY Aspirin Adult Low Strength (Aspirin) 81 Mg Tabdr 81 Mg PO DAILY Ventolin Hfa 18 GM Inh (Albuterol Sulfate) 90 Mcg/Act Aer 2 Puff INH Q4H PRN Metoprolol Succinate ER 24 HR (Metoprolol Succinate) 25 Mg Tab 25 Mg PO DAILY Active Ordered Medications Current Medications Medications (Trade) Dose Ordered Sig/Raheel Route Start Time Stop Time Status Last Admin (NS Flush) 2 ml UNSCH PRN IV FLUSH 07/09/16 01:15 (NS Flush) 2 ml BID IV FLUSH 07/09/16 09:00 (Heparin Inj) 5,000 units Q8H SQ 07/09/16 01:15 07/09/16 02:11 Naloxone HCl 0.4 mg 0.4 mg UNSCH PRN IV 07/09/16 01:15 (Maxipime Inj/NS Inj) 100 ml @ 200 mls/hr Q24H IV 07/09/16 09:00 (Lasix Inj) 40 mg BID@,18 IV PUSH 07/09/16 09:00 Heparin Sodium (Porcine) 5000 units 5,000 units Q8HR SQ 07/09/16 06:00 07/09/16 06:11 Sodium Chloride 250 ml @ 15 mls/hr ONCE ONCE IV 07/09/16 08:30 07/10/16 01:09 (NS 1000 ml Inj) 1,000 ml @ 0 mls/hr Q0M PRN IV 07/09/16 08:27 Heparin Sodium (Porcine) 8000 units 8,000 units UNSCH PRN IVF 07/09/16 08:30 Sodium Chloride 1,000 ml @ 200 mls/hr Q5H PRN IV 07/09/16 08:27 (NS 1000 ml Inj) 1,000 ml @ 0 mls/hr Q0M PRN IV 07/09/16 08:27 (Mannitol Inj) 12.5 gm UNSCH PRN IV 07/09/16 08:30 (Albumin 25% Inj) 25 gm UNSCH PRN IV 07/09/16 08:30 (NS Flush) 5 ml UNSCH PRN IV FLUSH 07/09/16 08:30 (Heparin Inj) UNSCH PRN .XX 07/09/16 08:30 (Gentamicin (Dialysis) Inj) 20 mg UNSCH PRN IV 07/09/16 08:30 (Zofran Inj) 4 mg UNSCH PRN IV 07/09/16 08:30 (Tylenol) 650 mg UNSCH PRN PO 07/09/16 08:30 (Benadryl) 25 mg UNSCH PRN PO 07/09/16 08:30 (Nitrostat Sl) 0.4 mg UNSCH PRN SL 07/09/16 08:30 (Catapres) 0.1 mg UNSCH PRN PO 07/09/16 08:30 (Epogen Inj) 10,000 units UNSCH PRN IV 07/09/16 08:30 Gelatin 1 foam 1 foam UNSCH PRN TOP 07/09/16 08:30 (Venofer Inj/NS Inj) 105 ml @ 105 mls/hr DAILY IV 07/09/16 10:00 07/11/16 09:59 Family History no hx of renal disorders Social History former smoker no ETOH , lives with needs assistance with ADLs full code retired (Milana Sandoval) Physical Exam Vital Signs Vital Signs Date Time Temp Pulse Resp B/P Pulse Ox O2 Delivery O2 Flow Rate FiO2 5/25/17 08:12 98.6 74 18 100/50 94 07/09/16 03:49 80 27 119/56 93 Nasal Cannula 3 07/09/16 01:00 88 38 103/48 91 Nasal Cannula 2 07/09/16 00:00 91 29 112/48 Nasal Cannula 2 07/08/16 23:51 96 55 07/08/16 22:16 80 26 Nasal Cannula 07/08/16 22:16 94 Nasal Cannula 4 07/08/16 22:08 27 93 Nasal Cannula 4 07/08/16 22:00 99.4 98 26 117/55 88 Physical Exam elderly chronically ill appearing female awake/alert, oriented x 3 tachypneic, on oxygen, lung sounds course S1/S2, regular rate, no murmurs Ext: no edema, left arm AVF + thrill/bruit abdomen soft Laboratory Laboratory Tests Test 07/08/16 07/09/16 07/09/16 22:20 01:20 08:06 White Blood Count 12.1 Red Blood Count 2.65 Hemoglobin 7.8 Hematocrit 24.0 Mean Corpuscular Volume 90.7 Mean Corpuscular Hemoglobin 29.5 Mean Corpuscular Hemoglobin 32.5 Concent Red Cell Distribution Width 16.9 Platelet Count 157 Mean Platelet Volume 8.4 Neutrophils (%) (Auto) 88.7 Lymphocytes (%) (Auto) 3.5 Monocytes (%) (Auto) 7.5 Eosinophils (%) (Auto) 0.0 Basophils (%) (Auto) 0.3 Neutrophils # (Auto) 10.8 Lymphocytes # (Auto) 0.4 Monocytes # (Auto) 0.9 Eosinophils # (Auto) 0.0 Basophils # (Auto) 0.0 CBC Comment DIFF FINAL Differential Comment Prothrombin Time 10.5 Prothromb Time International 1.0 Ratio Activated Partial 31.9 Thromboplast Time Blood Gas Puncture Site R Blood Gas Patient Temperature 98.6 Blood Gas HCO3 28 Blood Gas Base Excess 3.5 Blood Gas Oxygen Saturation 88 Arterial Blood pH 7.43 Arterial Blood Partial 42 Pressure CO2 Arterial Blood Partial 60 Pressure O2 Arterial Blood Oxygen Content 9.9 Arterial Blood 1.9 Carboxyhemoglobin Arterial Blood Methemoglobin 0.8 Blood Gas Hemoglobin 7.9 Oxygen Delivery Device BiPAP Blood Gas Ventilator Setting 16/6 Blood Gas Inspired Oxygen 60 B-Type Natriuretic Peptide 845 Sodium Level 135 Potassium Level 4.1 Chloride Level 96 Carbon Dioxide Level 28.3 Anion Gap 11 Blood Urea Nitrogen 45 Creatinine 3.08 Estimat Glomerular Filtration 14 Rate Random Glucose 146 Lactic Acid Level 2.7 1.3 Calcium Level 8.5 Total Creatine Kinase 90 Troponin I 0.09 Thyroid Stimulating Hormone 1.230 3rd Gen Urine Color YELLOW Urine Turbidity HAZY Urine pH 5.5 Urine Specific [place] 1.017 Urine Protein 100 Urine Glucose (UA) NEG Urine Ketones NEG Urine Occult Blood MOD Urine Nitrite NEG Urine Bilirubin NEG Urine Urobilinogen LESS THAN 2.0 Urine Leukocyte Esterase TRACE Urine RBC 20 Urine WBC 4 Urine Squamous Epithelial 1 Cells Urine Amorphous Sediment RARE Urine Bacteria MOD Urine Mucus FEW Microscopic Urinalysis Comment CULTURE INDICATED Date/Time Procedure Status Source Growth 07/09/16 08:06 Urine Culture Received Urine Clean Catch Pending 07/08/16 22:20 Aerobic Blood Culture Received Blood Peripheral Pending 07/08/16 22:20 Anaerobic Blood Culture Received Blood Peripheral Pending (Milana Sandoval) Result Diagram: 07/08/16221907/08/162219 Imaging Last Impressions Chest X-Ray 07/08/162208 Signed Impressions: Service Date/Time: Friday, July 08, 2016 22:29 - CONCLUSION: Perihilar infiltrates left greater than right. Stable exam since the . Heart remains enlarged Scot Toro MD (Milana Sandoval) Assessment and Plan Problem List: (1) ESRD (end stage renal disease) Plan: resume TTS hemodialysis seen during dialysis today on a 2K, 350 BFR, goal 2L no acute electrolyte disorders avoid IVF, gadolinium renal diet with no protein restriction add protein supplement (2) HTN (hypertension) Plan: BP is acceptable continue current medications (3) Anemia Plan: Hb was low prior to discharge give 2 units PRBC today with dialysis begin IV venofer continue Epogen with dialysis check stool for occult bleeding attempt to minimize lab draws, follow Hb (4) Metabolic bone disease Plan: check phosphorus level (5) PNA (pneumonia) Plan: was given Vancomycin and Zosyn monitor clinically on oxygen she would benefit from rehab placement after discharge (Milana Sandoval) Assessment and Plan patient was seen and examined. Discharged yesterday. She is very weak, transfused today. Venofer started. May benefit from rehab placement. (Gt Trejo MD) Milana Sandoval [facility] July 09, 2016 09:28 Gt Trejo MD July 09, 2016 16:23
[2016-07-09] MEDS: CEFEPIME INJ 1,000 MG in SODIUM CHLORIDE 0.9% INJ 100 ML IV SCH (13:26)
[2016-07-09] MEDS: SODIUM CHLORIDE 0.9% FLUSH 10 ML FLUSH IV FLUSH SCH ×2 (13:26→21:11)
[2016-07-09] MEDS: FUROSEMIDE 40 MG/4 ML VIAL IV PUSH SCH ×2 (13:27→17:21)
[2016-07-09] MEDS: IRON SUCROSE INJ 100 MG in SODIUM CHLORIDE 0.9% INJ 100 ML IV SCH (13:27)
[2016-07-09] MEDS: ACETAMINOPHEN 325 MG TAB PO PRN ×2 (13:39→21:11)
[2016-07-09] MEDS: ONDANSETRON HCL 4 MG/2 ML VIAL IV PRN (13:40)
--- NOTE | 2016-07-09 14:29 | HHI.PR ---
Subjective Remarks Patient seen and examined transfused 2 units PRBC and currently receiving Venofer IV +SOB Objective Vitals Vital Signs Date Time Temp Pulse Resp B/P Pulse Ox O2 Delivery O2 Flow Rate FiO2 07/09/16 13:00 120/60 07/09/16 08:12 98.6 74 18 100/50 94 07/09/16 08:00 74 07/09/16 03:49 80 27 119/56 93 Nasal Cannula 3 07/09/16 01:00 88 38 103/48 91 Nasal Cannula 2 07/09/16 00:00 91 29 112/48 Nasal Cannula 2 07/08/16 23:51 96 55 07/08/16 22:16 80 26 Nasal Cannula 07/08/16 22:16 94 Nasal Cannula 4 07/08/16 22:08 27 93 Nasal Cannula 4 07/08/16 22:00 99.4 98 26 117/55 88 Result Diagram: 07/08/16221907/08/162219 Imaging Last Impressions Chest X-Ray 07/08/162208 Signed Impressions: Service Date/Time: Friday, July 08, 2016 22:29 - CONCLUSION: Perihilar infiltrates left greater than right. Stable exam since the . Heart remains enlarged Scot Toro MD Objective Remarks GENERAL: NAD SKIN: Warm and dry. HEAD: Normocephalic. EYES: No scleral icterus. No injection or drainage. NECK: Supple, trachea midline. No JVD or lymphadenopathy. CARDIOVASCULAR: Regular rate and rhythm without murmurs, gallops, or rubs. RESPIRATORY: Breath sounds equal bilaterally. No accessory muscle use. GASTROINTESTINAL: Abdomen soft, non-tender, nondistended. MUSCULOSKELETAL: No cyanosis, or edema. BACK: Nontender without obvious deformity. No CVA tenderness. A/P Problem List: (1) PNA (pneumonia) ICD Code: J18.9 Status: Acute (2) Diarrhea ICD Code: R19.7 Status: Acute (3) End stage renal disease on dialysis ICD Code: N18.6 Status: Chronic Assessment and Plan PNA fluid overload CXR reviewed and reveals: Perihilar infiltrates left greater than right. Stable exam since the . Heart remains enlarged sputum culture ordered BC pending received Vancomycin and Zosyn in ER Continue Cefepime IV Albuterol neb Q6H and as needed diarrhea stool for C diff and enteric pathogens ESRD on HD- chronic Nephrology for HD management Patrice Madison MD July 09, 2016 14:29
[2016-07-09] MEDS: EPOETIN ALFA 10,000 UNITS/ML VIAL IV PRN (15:22)
--- NOTE | 2016-07-09 17:09 | EKG ---
Date Performed: 07/08/2016 Time Performed: 23:00:08 PTAGE: 81 years EKG: Sinus rhythm INCOMPLETE RIGHT BUNDLE BRANCH BLOCK BORDERLINE ECG PREVIOUS TRACING : 07/08/2016 22.25 Compared to prior tracing no significant change DOCTOR: Cory Zamora Interpretating Date/Time 07/09/2016 17:07:26
[2016-07-10] VITALS (10 sets, daily range): BP systolic 131–190; BP diastolic 65–86; PULSE 78–90; RESP 16–20; TEMP 98.2–99; O2SAT 94–97
[2016-07-10] MEDS: HEPARIN SODIUM - SQ 10,000 UNITS/ML VIAL SQ SCH ×6 (01:15→20:51)
[2016-07-10] MEDS: ACETAMINOPHEN 325 MG TAB PO PRN (02:35)
[2016-07-10] MEDS: RESP: ALBUTEROL 2.5 MG/3 ML NEB (SCH) NEB ×4 (03:55→21:12)
[2016-07-10 07:51] LABS: AUTOMATED NEUTROPHIL # 7.5 TH/MM3 (1.8-7.7); BASOPHIL % 0.2 % (0.0-2.0); EOSINOPHIL % 0.2 % (0.0-4.0); HEMATOCRIT 34.9 % (35.0-46.0); HEMO FLAGS DIFF FINAL; LYMPH % 3.5 % (9.0-44.0); LYMPHOCYTE # 0.3 TH/MM3 (1.0-4.8); MEAN CELL VOLUME 88.4 FL (80.0-100.0); MEAN CORPUSCULAR HEMOGLOBIN 28.6 PG (27.0-34.0); MEAN CORPUSCULAR HGB CONC 32.4 % (32.0-36.0); MONO % 5.8 % (0.0-8.0); NEUT % 90.3 % (16.0-70.0); PLATELET COUNT 144 TH/MM3 (150-450); RED BLOOD COUNT 3.95 MIL/MM3 (4.00-5.30); RED CELL DISTRIBUTION WIDTH 16.9 % (11.6-17.2); WHITE BLOOD COUNT 8.3 TH/MM3 (4.0-11.0)
[2016-07-10 08:13] LABS: BICARBONATE 31.9 MEQ/L (21.0-32.0); POTASSIUM 3.4 MEQ/L (3.5-5.1)
[2016-07-10] MEDS: SODIUM CHLORIDE 0.9% FLUSH 10 ML FLUSH IV FLUSH SCH ×2 (08:20→20:52)
[2016-07-10] MEDS: FUROSEMIDE 40 MG/4 ML VIAL IV PUSH SCH (08:20)
[2016-07-10] MEDS: IRON SUCROSE INJ 100 MG in SODIUM CHLORIDE 0.9% INJ 100 ML IV SCH (08:20)
[2016-07-10] MEDS: CEFEPIME INJ 1,000 MG in SODIUM CHLORIDE 0.9% INJ 100 ML IV SCH (08:20)
--- NOTE | 2016-07-10 08:35 | HHI.PR ---
Subjective Remarks Follow-up HCAP 07/10/16-patient seen and examined, still with compression and complains of chills and denies any diarrheal episode. Objective Vitals Vital Signs Date Time Temp Pulse Resp B/P Pulse Ox O2 Delivery O2 Flow Rate FiO2 07/10/16 04:00 98.2 86 20 161/69 95 07/10/16 00:06 4.00 07/10/16 00:00 98.6 78 16 148/65 96 07/09/16 20:17 87 07/09/16 20:00 98.2 81 18 144/64 93 07/09/16 15:35 98.0 79 18 135/63 93 07/09/16 13:00 120/60 I/O 07/09/16 07/09/16 07/09/16 07/10/16 07/10/16 07/10/16 07:00 15:00 23:00 07:00 15:00 23:00 Intake Total 240 ml 0 ml Output Total 1350 ml 200 ml Balance -1110 ml -200 ml Intake Oral 240 ml 0 ml Output Urine Total 350 ml 200 ml Hemodialysis 1000 ml # Bowel Movements 0 0 Result Diagram: 07/10/16 0659 07/10/16 0659 Imaging Last Impressions Chest X-Ray 07/08/162208 Signed Impressions: Service Date/Time: Friday, July 08, 2016 22:29 - CONCLUSION: Perihilar infiltrates left greater than right. Stable exam since the . Heart remains enlarged Scot Toro MD Objective Remarks GENERAL: NAD SKIN: Warm and dry. HEAD: Normocephalic. EYES: No scleral icterus. No injection or drainage. NECK: Supple, trachea midline. No JVD or lymphadenopathy. CARDIOVASCULAR: Regular rate and rhythm without murmurs, gallops, or rubs. RESPIRATORY: Breath sounds equal bilaterally. No accessory muscle use. GASTROINTESTINAL: Abdomen soft, non-tender, nondistended. MUSCULOSKELETAL: No cyanosis, or edema. BACK: Nontender without obvious deformity. No CVA tenderness. A/P Problem List: (1) HCAP (healthcare-associated pneumonia) ICD Code: J18.9 Status: Acute (2) PNA (pneumonia) ICD Code: J18.9 Status: Acute (3) Diarrhea ICD Code: R19.7 Status: Acute (4) End stage renal disease on dialysis ICD Code: N18.6 Status: Chronic (5) ESRD (end stage renal disease) ICD Code: N18.6 Status: Acute (6) HTN (hypertension) ICD Code: I10 Status: Acute (7) Iron deficiency anemia ICD Code: D50.9 Status: Acute Assessment and Plan 81-year-old female with HCAP Fluid overload CXR reviewed and reveals: Perihilar infiltrates left greater than right. Stable exam since the . Heart remains enlarged BC,sputum culture ordered s/p Vancomycin and Zosyn in ER Continue Cefepime IV Albuterol neb Q6H and as needed -Diarrhea stool for C diff and enteric pathogens - ESRD - Nephrology ff. HD T, , S -Anemia of chronic blood loss/chronic kidney disease Transfused 2 unit packed red blood cell -Iron deficiency anemia Transfusion of Venofer 100mg IV Q day until 07/11/16 - Hypertension -Resume clonidine 0.2 mg by mouth every 8 hours, nifedipine 90 mg by mouth daily. - Clonidine 0.1 mg when necessary. Hold losartan 100 mg daily, metoprolol succinate 25 mg daily, - Hypothyroidism - continue levothyroxine 100 g daily. - Hyperlipidemia: Resume TriCor and Lipitor - Small cell lung cancer - currently undergoing radiation therapy. Followed by Dr. Gonsalez (Heme/Onc). Full code. Heparin SQ Patrice Madison MD July 10, 2016 08:35
[2016-07-10] MEDS: CALCITRIOL 0.25 MCG CAP PO SCH (10:24)
[2016-07-10] MEDS: ASPIRIN EC 81 MG TABEC PO SCH (10:24)
[2016-07-10] MEDS: LEVOTHYROXINE SODIUM 100 MCG TAB PO SCH (10:25)
[2016-07-10] MEDS: ACETAMINOPHEN/HYDROcodone 325 MG/5 MG TAB PO PRN ×2 (10:25→17:57)
[2016-07-10] MEDS: NIFEdipine 90 MG SUSTAINED RELEASE TAB PO SCH (10:26)
[2016-07-10] MEDS ORDERED: NON-FORMULARY DRUG (Fenofibrate 54 MG) PO SCH (11:00)
[2016-07-10] MEDS ORDERED: POTASSIUM CHLORIDE 20 MEQ CONTROLLED RELEASE TAB PO ONE (12:00)
[2016-07-10] MEDS: cloNIDine HCL 0.2 MG TAB PO SCH ×2 (13:15→20:51)
--- NOTE | 2016-07-10 14:06 | HHI.NPPN ---
Subjective Complaints: Shortness of Breath General Problems: Anemia Renal Failure: Chronic Interval History She feels better. Some shortness of breath. Anemia has improved. (Milana Sandoval) Review of Systems Respiratory Lungs: SOB (Milana Sandoval) Objective Data Data 07/09/16 07/10/16 19:00 07:00 Intake Total 240 ml Output Total 1000 ml 550 ml Balance -1000 ml -310 ml Intake Oral 240 ml Output Urine Total 550 ml Hemodialysis 1000 ml # Bowel Movements 0 Vital Signs Date Time Temp Pulse Resp B/P Pulse Ox O2 Delivery O2 Flow Rate FiO2 07/10/16 12:00 98.9 90 20 190/78 94 07/10/16 09:57 97 Nasal Cannula 4.00 07/10/16 08:00 99.0 86 20 185/76 94 07/10/16 04:00 98.2 86 20 161/69 95 07/10/16 00:06 4.00 07/10/16 00:00 98.6 78 16 148/65 96 07/09/16 20:17 87 07/09/16 20:00 98.2 81 18 144/64 93 07/09/16 15:35 98.0 79 18 135/63 93 (Milana Sandoval) -: 07/10/16 0659 07/10/16 0659 Imaging Last 72 hours Impressions Chest X-Ray 07/08/162208 Signed Impressions: Service Date/Time: Friday, July 08, 2016 22:29 - CONCLUSION: Perihilar infiltrates left greater than right. Stable exam since the . Heart remains enlarged Scot Toro MD (Milana Sandoval) Physical Exam General Appearance: No Acute Distress, Comfortable, Malnourished (Milana Sandoval) Eyes Eye Exam: Pupils Equal (Milana Sandoval) Throat Throat Exam: Oral Mucosa [place] & Moist (Milana Sandoval) Pulmonary Resp Exam: Breath Sounds Equal, Crackles (Milana Sandoval) Cardiology CV Exam: Regular, Normal Sinus Rhythm (Milana Sandoval) Gastrointestinal/Abdomen GI Exam: Soft, Non-Tender (Milana Sandoval) Musculoskeletal MS Exam: Normal Gait, Normal Tone (Milana Sandoval) Integumentary Skin Exam: Warm, Dry (Milana Sandoval) Extremeties Extremities Exam: No Edema, Pedal Pulses Palpable (Mliana Sandoval) Neurologic Neuro Exam: Alert, Awake, Oriented, Speech Clear, Moving All Extremities ( Milana Sandoval) Psychiatric Psych Exam: Appropriate Responses (Milana Sandoval) Assessment/Plan Discussed Condition With: Patient, Spouse Assessment Summary: Anemia of CKD Problem List: (1) ESRD (end stage renal disease) Plan: 1 liter UF yesterday with HD, resume TTS hemodialysis no acute electrolyte disorders avoid IVF, gadolinium renal diet with no protein restriction continue protein supplement cleared for discharge from renal perspective (2) HTN (hypertension) Plan: BP is acceptable continue current medications (3) Anemia Plan: Hb improved, given 2 units with HD yesterday continue epogen continue venofer x 3 doses (4) Metabolic bone disease Plan: phosphorus level acceptable (5) PNA (pneumonia) Plan: on cefepime may have radiation pneumonitis, consider pulmonary evaluation, follows with Dr. Lafleur on oxygen she will go to rehab after discharge (Milana Sandoval) Plan patient was seen and examined. Continue dialysis TTS. Anemia has improved. Needs to rehab. (Gt Trejo MD) Milana Sandoval July 10, 2016 14:06 Gt Trejo MD July 10, 2016 15:47
[2016-07-10] MEDS: ATORVASTATIN 10 MG TAB PO SCH (20:51)
[2016-07-10] MEDS: FLUoxetine HCL 20 MG CAP PO SCH (20:51)
[2016-07-11] VITALS (8 sets, daily range): BP systolic 127–214; BP diastolic 60–84; PULSE 77–90; RESP 16–24; TEMP 98.2–98.9; O2SAT 92–98
[2016-07-11] MEDS: ACETAMINOPHEN/HYDROcodone 325 MG/5 MG TAB PO PRN ×5 (00:05→20:45)
[2016-07-11] MEDS: HEPARIN SODIUM - SQ 10,000 UNITS/ML VIAL SQ SCH ×6 (00:05→20:42)
[2016-07-11] MEDS: RESP: ALBUTEROL 2.5 MG/3 ML NEB (SCH) NEB ×4 (04:58→20:53)
[2016-07-11] MEDS: cloNIDine HCL 0.2 MG TAB PO SCH ×3 (06:25→20:41)
[2016-07-11] MEDS: LEVOTHYROXINE SODIUM 100 MCG TAB PO SCH (06:25)
[2016-07-11] MEDS: SODIUM CHLORIDE 0.9% FLUSH 10 ML FLUSH IV FLUSH SCH ×2 (08:40→20:41)
--- NOTE | 2016-07-11 09:22 | HHI.PR ---
Subjective Remarks Follow-up HCAP 07/10/16-patient seen and examined, still with compression and complains of chills and denies any diarrheal episode. 07/11/16-patient seen and examined, reports some improvement of shortness of breath. Currently afebrile. States she only had 1 small episode of loose stool yesterday but none since this morning. Objective Vitals Vital Signs Date Time Temp Pulse Resp B/P Pulse Ox O2 Delivery O2 Flow Rate FiO2 07/11/16 08:00 98.7 82 24 153/70 92 07/11/16 04:00 98.4 90 22 155/65 95 07/11/16 00:00 98.9 81 20 152/66 96 07/10/16 21:12 94 Nasal Cannula 4.00 07/10/16 20:01 78 07/10/16 20:00 98.9 79 18 148/86 97 07/10/16 16:00 98.8 78 20 131/79 97 07/10/16 12:00 98.9 90 20 190/78 94 07/10/16 09:57 97 Nasal Cannula 4.00 I/O 07/10/16 07/10/16 07/10/16 07/11/16 07/11/16 07/11/16 07:00 15:00 23:00 07:00 15:00 23:00 Intake Total 0 ml 480 ml 240 ml 240 ml Output Total 200 ml 250 ml 125 ml Balance -200 ml 230 ml 115 ml 240 ml Intake Oral 0 ml 480 ml 240 ml 240 ml Output Urine Total 200 ml 250 ml 125 ml # Voids 0 # Bowel Movements 0 1 0 0 Result Diagram: 07/10/16 0659 07/10/16 0659 Objective Remarks GENERAL: NAD SKIN: Warm and dry. HEAD: Normocephalic. EYES: No scleral icterus. No injection or drainage. NECK: Supple, trachea midline. No JVD or lymphadenopathy. CARDIOVASCULAR: Regular rate and rhythm without murmurs, gallops, or rubs. RESPIRATORY: Breath sounds equal bilaterally. No accessory muscle use. GASTROINTESTINAL: Abdomen soft, non-tender, nondistended. MUSCULOSKELETAL: No cyanosis, or edema. BACK: Nontender without obvious deformity. No CVA tenderness. A/P Problem List: (1) HCAP (healthcare-associated pneumonia) ICD Code: J18.9 Status: Acute (2) PNA (pneumonia) ICD Code: J18.9 Status: Acute (3) Diarrhea ICD Code: R19.7 Status: Acute (4) End stage renal disease on dialysis ICD Code: N18.6 Status: Chronic (5) ESRD (end stage renal disease) ICD Code: N18.6 Status: Acute (6) HTN (hypertension) ICD Code: I10 Status: Acute (7) Iron deficiency anemia ICD Code: D50.9 Status: Acute Assessment and Plan 81-year-old female with HCAP Fluid overload CXR reviewed and reveals: Perihilar infiltrates left greater than right. Stable exam since the . Heart remains enlarged BC,sputum culture ordered s/p Vancomycin and Zosyn in ER Continue Cefepime IV Albuterol neb Q6H and as needed -Diarrhea stool for C diff and enteric pathogens pending - ESRD - Nephrology ff. HD T, , S -Anemia of chronic blood loss/chronic kidney disease Transfused 2 unit packed red blood cell -Iron deficiency anemia Transfusion of Venofer 100mg IV Q day until today 07/11/16 - Hypertension -continue clonidine 0.2 mg by mouth every 8 hours, nifedipine 90 mg by mouth daily. - Clonidine 0.1 mg when necessary. Resume losartan 100 mg daily, metoprolol succinate 25 mg daily, - Hypothyroidism - continue levothyroxine 100 g daily. 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 Followed by Dr. Gonsalez (Heme/Onc). Full code. Heparin SQ Patrice Madison MD July 11, 2016 09:22
--- NOTE | 2016-07-11 10:49 | HHI.NPPN ---
Subjective Complaints: Shortness of Breath General Problems: Anemia Renal Failure: Chronic Review of Systems Respiratory Lungs: SOB Objective Data Data 07/10/16 07/11/16 19:00 07:00 Intake Total 480 ml 480 ml Output Total 250 ml 125 ml Balance 230 ml 355 ml Intake Oral 480 ml 480 ml Output Urine Total 250 ml 125 ml # Voids 0 # Bowel Movements 1 0 Vital Signs Date Time Temp Pulse Resp B/P Pulse Ox O2 Delivery O2 Flow Rate FiO2 07/11/16 08:00 98.7 82 24 153/70 92 07/11/16 04:00 98.4 90 22 155/65 95 07/11/16 00:00 98.9 81 20 152/66 96 07/10/16 21:12 94 Nasal Cannula 4.00 07/10/16 20:01 78 07/10/16 20:00 98.9 79 18 148/86 97 07/10/16 16:00 98.8 78 20 131/79 97 07/10/16 12:00 98.9 90 20 190/78 94 -: 07/10/16 0659 07/10/16 0659 Physical Exam General Appearance: No Acute Distress, Comfortable, Malnourished Eyes Eye Exam: Pupils Equal Throat Throat Exam: Oral Mucosa [place] & Moist Pulmonary Resp Exam: Breath Sounds Equal, Crackles Cardiology CV Exam: Regular, Normal Sinus Rhythm Gastrointestinal/Abdomen GI Exam: Soft, Non-Tender Musculoskeletal MS Exam: Normal Gait, Normal Tone Integumentary Skin Exam: Warm, Dry Extremeties Extremities Exam: No Edema, Pedal Pulses Palpable Neurologic Neuro Exam: Alert, Awake, Oriented, Speech Clear, Moving All Extremities Psychiatric Psych Exam: Appropriate Responses Assessment/Plan Discussed Condition With: Patient, Spouse Assessment Summary: Anemia of CKD Problem List: (1) ESRD (end stage renal disease) Plan: Seen during HD 1 .5 L UF TODAY with HD, resume TTS hemodialysis replace K 3.4 avoid IVF, gadolinium renal diet with no protein restriction continue protein supplement cleared for discharge from renal perspective (2) HTN (hypertension) Plan: BP is acceptable continue current medications (3) Anemia Plan: Hb improved, given 2 units with HD yesterday continue epogen continue venofer x 3 doses (4) Metabolic bone disease Plan: phosphorus level acceptable (5) PNA (pneumonia) Plan: on cefepime may have radiation pneumonitis, consider pulmonary evaluation, follows with Dr. Lafleur on oxygen she will go to rehab after discharge Eder Langford MD July 11, 2016 10:49 Eder Langford MD July 11, 2016 10:49
[2016-07-11] MEDS: IRON SUCROSE INJ 100 MG in SODIUM CHLORIDE 0.9% INJ 100 ML IV SCH (11:00)
[2016-07-11] MEDS: EPOETIN ALFA 10,000 UNITS/ML VIAL IV PRN (11:46)
[2016-07-11] MEDS: CEFEPIME INJ 1,000 MG in SODIUM CHLORIDE 0.9% INJ 100 ML IV SCH (12:33)
[2016-07-11] MEDS: CALCITRIOL 0.25 MCG CAP PO SCH (12:35)
[2016-07-11] MEDS: ASPIRIN EC 81 MG TABEC PO SCH (12:35)
[2016-07-11] MEDS: NIFEdipine 90 MG SUSTAINED RELEASE TAB PO SCH (12:45)
[2016-07-11] MEDS ORDERED: POTASSIUM CHLORIDE 20 MEQ CONTROLLED RELEASE TAB PO ONE (13:00)
[2016-07-11] MEDS: FLUoxetine HCL 20 MG CAP PO SCH (20:41)
[2016-07-11] MEDS: ATORVASTATIN 10 MG TAB PO SCH (20:41)
[2016-07-11] MEDS: ONDANSETRON HCL 4 MG/2 ML VIAL IV PRN (20:45)
[2016-07-12] VITALS (10 sets, daily range): BP systolic 96–130; BP diastolic 49–60; PULSE 69–80; RESP 16; TEMP 98.2–99.4; O2SAT 90–97
[2016-07-12] MEDS: HEPARIN SODIUM - SQ 10,000 UNITS/ML VIAL SQ SCH ×6 (02:15→21:05)
[2016-07-12] MEDS: RESP: ALBUTEROL 2.5 MG/3 ML NEB (SCH) NEB ×4 (04:04→20:44)
[2016-07-12] MEDS: LEVOTHYROXINE SODIUM 100 MCG TAB PO SCH (05:19)
[2016-07-12] MEDS: cloNIDine HCL 0.2 MG TAB PO SCH ×3 (05:19→21:04)
[2016-07-12] MEDS: NIFEdipine 90 MG SUSTAINED RELEASE TAB PO SCH (08:36)
[2016-07-12] MEDS: LOSARTAN 50 MG TAB PO SCH (08:36)
[2016-07-12] MEDS: METOPROLOL SUCCINATE 25 MG EXTENDED RELEASE TAB PO SCH (08:36)
[2016-07-12] MEDS: CALCITRIOL 0.25 MCG CAP PO SCH (08:36)
[2016-07-12] MEDS: ASPIRIN EC 81 MG TABEC PO SCH (08:37)
[2016-07-12] MEDS: SODIUM CHLORIDE 0.9% FLUSH 10 ML FLUSH IV FLUSH SCH ×2 (08:37→21:00)
[2016-07-12] MEDS: CEFEPIME INJ 1,000 MG in SODIUM CHLORIDE 0.9% INJ 100 ML IV SCH (08:37)
--- NOTE | 2016-07-12 09:46 | HHI.PR ---
Subjective Remarks [facility]-patient seen and examined, still with compression and complains of chills and denies any diarrheal episode. 07/11/16-patient seen and examined, reports some improvement of shortness of breath. Currently afebrile. States she only had 1 small episode of loose stool yesterday but none since this morning. 07/12/16-patient seen and examined. Patient states she is breathing better and denies any significant complications sputum. Now complains of severe pain. Currently afebrile Objective Vitals Vital Signs Date Time Temp Pulse Resp B/P Pulse Ox O2 Delivery O2 Flow Rate FiO2 07/12/16 09:13 96 Nasal Cannula 4.00 07/12/16 08:00 99.3 77 16 109/53 95 07/12/16 04:05 90 Nasal Cannula 4.00 07/12/16 04:00 98.2 80 16 117/56 95 07/12/16 00:00 98.2 76 16 96/49 97 07/11/16 20:56 94 Nasal Cannula 4.00 07/11/16 20:15 80 07/11/16 20:00 98.5 78 17 127/60 93 07/11/16 16:00 98.2 77 20 127/68 94 07/11/16 12:30 98.7 79 16 214/84 98 I/O 07/11/16 07/11/16 07/11/16 07/12/16 07/12/16 07/12/16 07:00 15:00 23:00 07:00 15:00 23:00 Intake Total 240 ml 100 ml 2 ml 0 ml Output Total 1500 ml Balance 240 ml -1400 ml 2 ml 0 ml Intake Oral 240 ml 2 ml IV Total 100 ml 0 ml Hemodialysis 1500 ml # Voids 0 1 2 # Bowel Movements 0 Result Diagram: 07/10/1659 07/10/1659 Objective Remarks GENERAL: NAD SKIN: Warm and dry. HEAD: Normocephalic. EYES: No scleral icterus. No injection or drainage. NECK: Supple, trachea midline. No JVD or lymphadenopathy. CARDIOVASCULAR: Regular rate and rhythm without murmurs, gallops, or rubs. RESPIRATORY: Breath sounds equal bilaterally. No accessory muscle use. GASTROINTESTINAL: Abdomen soft, non-tender, nondistended. MUSCULOSKELETAL: No cyanosis, or edema. BACK: Nontender without obvious deformity. No CVA tenderness. A/P Problem List: (1) HCAP (healthcare-associated pneumonia) ICD Code: J18.9 Status: Acute (2) PNA (pneumonia) ICD Code: J18.9 Status: Acute (3) Diarrhea ICD Code: R19.7 Status: Acute (4) End stage renal disease on dialysis ICD Code: N18.6 Status: Chronic (5) ESRD (end stage renal disease) ICD Code: N18.6 Status: Acute (6) HTN (hypertension) ICD Code: I10 Status: Acute (7) Iron deficiency anemia ICD Code: D50.9 Status: Acute Assessment and Plan 81-year-old female with HCAP Fluid overload CXR reviewed and reveals: Perihilar infiltrates left greater than right. Stable exam since the . Heart remains enlarged BC,sputum culture ordered s/p Vancomycin and Zosyn in ER Continue Cefepime IV Albuterol neb Q6H and as needed -Diarrhea-Resolved stool for C diff and enteric pathogens pending - ESRD - Nephrology ff. HD T, , S -Anemia of chronic blood loss/chronic kidney disease Transfused 2 unit packed red blood cell -Iron deficiency anemia Transfused Venofer 100mg IV Q day x 3 days - Hypertension -continue clonidine 0.2 mg by mouth every 8 hours, nifedipine 90 mg by mouth daily. - Clonidine 0.1 mg when necessary. Resume losartan 100 mg daily, metoprolol succinate 25 mg daily, - Hypothyroidism - continue levothyroxine 100 g daily. 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 Followed by Dr. Gonsalez (Heme/Onc). Full code. Heparin SQ Patrice Madison MD July 12, 2016 09:46
--- NOTE | 2016-07-12 14:51 | HHI.NPPN ---
Subjective Complaints: Shortness of Breath General Problems: Anemia Renal Failure: Chronic Review of Systems Respiratory Lungs: SOB Objective Data Data 07/11/16 07/12/16 19:00 07:00 Intake Total 100 ml 2 ml Output Total 1500 ml Balance -1400 ml 2 ml Intake Oral 2 ml IV Total 100 ml 0 ml Hemodialysis 1500 ml # Voids 3 Vital Signs Date Time Temp Pulse Resp B/P Pulse Ox O2 Delivery O2 Flow Rate FiO2 07/12/16 12:00 99.4 74 16 112/57 97 07/12/16 09:13 96 Nasal Cannula 4.00 07/12/16 08:00 99.3 77 16 109/53 95 07/12/16 04:05 90 Nasal Cannula 4.00 07/12/16 04:00 98.2 80 16 117/56 95 07/12/16 00:00 98.2 76 16 96/49 97 07/11/16 20:56 94 Nasal Cannula 4.00 07/11/16 20:15 80 07/11/16 20:00 98.5 78 17 127/60 93 07/11/16 16:00 98.2 77 20 127/68 94 -: 07/10/16 0659 07/10/16 0659 Physical Exam General Appearance: No Acute Distress, Comfortable, Malnourished Eyes Eye Exam: Pupils Equal Throat Throat Exam: Oral Mucosa [place] & Moist Pulmonary Resp Exam: Breath Sounds Equal, Crackles Cardiology CV Exam: Regular, Normal Sinus Rhythm Gastrointestinal/Abdomen GI Exam: Soft, Non-Tender Musculoskeletal MS Exam: Normal Gait, Normal Tone Integumentary Skin Exam: Warm, Dry Extremeties Extremities Exam: No Edema, Pedal Pulses Palpable Neurologic Neuro Exam: Alert, Awake, Oriented, Speech Clear, Moving All Extremities Psychiatric Psych Exam: Appropriate Responses Assessment/Plan Discussed Condition With: Patient, Spouse Assessment Summary: Anemia of CKD Problem List: (1) ESRD (end stage renal disease) Plan: Seen during HD 1 .5 L UF yesterday with HD, resume TTS hemodialysis avoid IVF, gadolinium renal diet with no protein restriction continue protein supplement cleared for discharge from renal perspective Dr. Trejo to follow (2) HTN (hypertension) Plan: BP is acceptable continue current medications (3) Anemia Plan: Hb improved, given 2 units with HD yesterday continue epogen continue venofer x 3 doses (4) Metabolic bone disease Plan: phosphorus level acceptable (5) PNA (pneumonia) Plan: on cefepime may have radiation pneumonitis, consider pulmonary evaluation, follows with Dr. Lafleur on oxygen she will go to rehab after discharge (6) Lung mass Plan: small cell lung Ca Eder Langford MD July 12, 2016 14:51
[2016-07-12] MEDS: ACETAMINOPHEN/HYDROcodone 325 MG/5 MG TAB PO PRN (18:13)
[2016-07-12] MEDS: ATORVASTATIN 10 MG TAB PO SCH (21:04)
[2016-07-12] MEDS: FLUoxetine HCL 20 MG CAP PO SCH (21:04)
[2016-07-13] VITALS (9 sets, daily range): BP systolic 108–166; BP diastolic 51–70; PULSE 66–76; RESP 16–20; TEMP 96.8–99.2; O2SAT 93–97
[2016-07-13] MEDS: HEPARIN SODIUM - SQ 10,000 UNITS/ML VIAL SQ SCH ×4 (01:49→21:28)
[2016-07-13] MEDS: RESP: ALBUTEROL 2.5 MG/3 ML NEB (SCH) NEB (03:47)
[2016-07-13] MEDS: LEVOTHYROXINE SODIUM 100 MCG TAB PO SCH (05:25)
[2016-07-13] MEDS: cloNIDine HCL 0.2 MG TAB PO SCH ×3 (05:25→21:27)
[2016-07-13 08:20] LABS: BASOPHIL % 0.4 % (0.0-2.0); EOSINOPHIL # 0.2 TH/MM3 (0-0.4); HEMATOCRIT 33.8 % (35.0-46.0); HEMO FLAGS DIFF FINAL; LYMPH % 10.4 % (9.0-44.0); LYMPHOCYTE # 0.5 TH/MM3 (1.0-4.8); MEAN CELL VOLUME 89.5 FL (80.0-100.0); MEAN CORPUSCULAR HEMOGLOBIN 28.4 PG (27.0-34.0); MEAN CORPUSCULAR HGB CONC 31.8 % (32.0-36.0); MONO % 9.3 % (0.0-8.0); NEUT % 76.9 % (16.0-70.0); PLATELET COUNT 158 TH/MM3 (150-450); RED BLOOD COUNT 3.78 MIL/MM3 (4.00-5.30); RED CELL DISTRIBUTION WIDTH 15.9 % (11.6-17.2); WHITE BLOOD COUNT 5.2 TH/MM3 (4.0-11.0)
[2016-07-13 08:52] LABS: BICARBONATE 30.8 MEQ/L (21.0-32.0); POTASSIUM 4.3 MEQ/L (3.5-5.1)
[2016-07-13] MEDS: LOSARTAN 50 MG TAB PO SCH (09:00)
[2016-07-13] MEDS: METOPROLOL SUCCINATE 25 MG EXTENDED RELEASE TAB PO SCH (09:00)
--- NOTE | 2016-07-13 09:04 | HHI.PR ---
Subjective Remarks [facility]-patient seen and examined, still with compression and complains of chills and denies any diarrheal episode. 07/11/16-patient seen and examined, reports some improvement of shortness of breath. Currently afebrile. States she only had 1 small episode of loose stool yesterday but none since this morning. 07/12/16-patient seen and examined. Patient states she is breathing better and denies any significant complications sputum. Now complains of severe pain. Currently afebrile 07/13/16-patient seen and examined. Patient is now willing to go to SNF. Reports improvement of shortness of breath, cough production. Only complains of back pain Objective Vitals Vital Signs Date Time Temp Pulse Resp B/P Pulse Ox O2 Delivery O2 Flow Rate FiO2 07/13/16 04:00 99.2 76 16 110/51 95 07/13/16 03:49 97 Nasal Cannula 4.00 07/13/16 00:00 98.4 66 16 108/58 93 07/12/16 20:50 95 Nasal Cannula 4.00 07/12/16 20:00 98.8 69 16 101/57 92 07/12/16 19:00 71 07/12/16 16:00 99.1 71 16 130/60 90 07/12/16 12:00 99.4 74 16 112/57 97 07/12/16 09:13 96 Nasal Cannula 4.00 I/O 07/12/16 07/12/16 07/12/16 07/13/16 07/13/16 07/13/16 07:00 15:00 23:00 07:00 15:00 23:00 Intake Total 0 ml 360 ml 240 ml 240 ml Balance 0 ml 360 ml 240 ml 240 ml Intake Oral 360 ml 240 ml 240 ml IV Total 0 ml # Voids 2 3 2 2 # Bowel Movements 0 1 1 Result Diagram: 07/13/1644 07/13/16743 Objective Remarks GENERAL: NAD SKIN: Warm and dry. HEAD: Normocephalic. EYES: No scleral icterus. No injection or drainage. NECK: Supple, trachea midline. No JVD or lymphadenopathy. CARDIOVASCULAR: Regular rate and rhythm without murmurs, gallops, or rubs. RESPIRATORY: Breath sounds equal bilaterally. No accessory muscle use. GASTROINTESTINAL: Abdomen soft, non-tender, nondistended. MUSCULOSKELETAL: No cyanosis, or edema. BACK: Nontender without obvious deformity. No CVA tenderness. A/P Problem List: (1) HCAP (healthcare-associated pneumonia) ICD Code: J18.9 Status: Acute (2) PNA (pneumonia) ICD Code: J18.9 Status: Acute (3) Diarrhea ICD Code: R19.7 Status: Acute (4) End stage renal disease on dialysis ICD Code: N18.6 Status: Chronic (5) ESRD (end stage renal disease) ICD Code: N18.6 Status: Acute (6) HTN (hypertension) ICD Code: I10 Status: Acute (7) Iron deficiency anemia ICD Code: D50.9 Status: Acute Assessment and Plan 81-year-old female with HCAP Fluid overload CXR reviewed and reveals: Perihilar infiltrates left greater than right. Stable exam since the . Heart remains enlarged BC,sputum culture ordered s/p Vancomycin and Zosyn in ER Continue Cefepime IV Albuterol neb Q6H and as needed -Diarrhea-Resolved stool for C diff and enteric pathogens pending - ESRD - Nephrology ff. HD T, Th, S -Anemia of chronic blood loss/chronic kidney disease Transfused 2 unit packed red blood cell -Iron deficiency anemia Transfused Venofer 100mg IV Q day x 3 days - Hypertension -soft BP will hold clonidine 0.2 mg by mouth every 8 hours, losartan 100 mg daily, metoprolol succinate 25 mg daily, Only give nifedipine 90 mg by mouth daily - Hypothyroidism - continue levothyroxine 100 g daily. 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 Followed by Dr. Gonsalez (Heme/Onc). Full code. Heparin SQ Patrice Madison MD July 13, 2016 09:04
[2016-07-13] MEDS: NIFEdipine 90 MG SUSTAINED RELEASE TAB PO SCH (09:05)
[2016-07-13] MEDS: CALCITRIOL 0.25 MCG CAP PO SCH (09:05)
[2016-07-13] MEDS: ASPIRIN EC 81 MG TABEC PO SCH (09:05)
[2016-07-13] MEDS: SODIUM CHLORIDE 0.9% FLUSH 10 ML FLUSH IV FLUSH SCH ×2 (09:06→21:28)
[2016-07-13] MEDS: CEFEPIME INJ 1,000 MG in SODIUM CHLORIDE 0.9% INJ 100 ML IV SCH (09:06)
[2016-07-13] MEDS: ACETAMINOPHEN/HYDROcodone 325 MG/5 MG TAB PO PRN ×2 (09:43→14:10)
--- NOTE | 2016-07-13 10:05 | HHI.NPPN ---
Subjective Complaints: Shortness of Breath General Problems: Anemia Renal Failure: Chronic Interval History patient complains of back pain. She has no lower extremity weakness, no numbness. Was able to ambulate with help. She complains of constipation. No diarrhea. Review of Systems General Constitutional: Fatigue Respiratory Lungs: SOB, Cough, Wheeze Gastrointestinal Gastrointestinal: Constipation Musculoskeletal MS Remarks back pain Objective Data Data 07/12/16 07/13/16 19:00 07:00 Intake Total 360 ml 480 ml Balance 360 ml 480 ml Intake Oral 360 ml 480 ml # Voids 3 4 # Bowel Movements 0 2 Vital Signs Date Time Temp Pulse Resp B/P Pulse Ox O2 Delivery O2 Flow Rate FiO2 07/13/16 04:00 99.2 76 16 110/51 95 07/13/16 03:49 97 Nasal Cannula 4.00 07/13/16 00:00 98.4 66 16 108/58 93 07/12/16 20:50 95 Nasal Cannula 4.00 07/12/16 20:00 98.8 69 16 101/57 92 07/12/16 19:00 71 07/12/16 16:00 99.1 71 16 130/60 90 07/12/16 12:00 99.4 74 16 112/57 97 -: 07/13/16 0744 07/13/16 0744 Physical Exam General Appearance: No Acute Distress, Comfortable, Malnourished Eyes Eye Exam: Pupils Equal Throat Throat Exam: Oral Mucosa [place] & Moist Pulmonary Resp Exam: Breath Sounds Equal, Crackles Cardiology CV Exam: Regular, Normal Sinus Rhythm Gastrointestinal/Abdomen GI Exam: Soft, Non-Tender Musculoskeletal MS Exam: Normal Gait, Normal Tone Integumentary Skin Exam: Warm, Dry Extremeties Extremities Exam: No Edema, Pedal Pulses Palpable Neurologic Neuro Exam: Alert, Awake, Oriented, Speech Clear, Moving All Extremities Psychiatric Psych Exam: Appropriate Responses Assessment/Plan Discussed Condition With: Patient, Spouse Assessment Summary: Anemia of CKD Problem List: (1) ESRD (end stage renal disease) Plan: We will continue dialysis TTS, dialysis tomorrow. Continue to monitor volume status and electrolytes. (2) HTN (hypertension) Plan: BP is acceptable continue current medications (3) Anemia Plan: She received blood transfusion. On IV Venofer. (4) Metabolic bone disease Plan: phosphorus level acceptable (5) PNA (pneumonia) Plan: on cefepime may have radiation pneumonitis, consider pulmonary evaluation, follows with Dr. Lafleur on oxygen she will go to rehab after discharge (6) Lung mass Plan: Has received palliative XRT. Prognosis is poor. Gt Trejo MD July 13, 2016 10:05
[2016-07-13] MEDS ORDERED: MAGNESIUM CITRATE SOLN 300 ML BTL PO ONE (16:45)
[2016-07-13] MEDS: ONDANSETRON HCL 4 MG/2 ML VIAL IV PRN (21:19)
[2016-07-13] MEDS: FLUoxetine HCL 20 MG CAP PO SCH (21:27)
[2016-07-13] MEDS: ATORVASTATIN 10 MG TAB PO SCH (21:27)
[2016-07-14] VITALS (7 sets, daily range): BP systolic 101–152; BP diastolic 55–67; PULSE 59–78; RESP 18–20; TEMP 97.5–98.2; O2SAT 97–99
[2016-07-14] MEDS: ACETAMINOPHEN/HYDROcodone 325 MG/5 MG TAB PO PRN ×2 (00:25→06:24)
[2016-07-14] MEDS: HEPARIN SODIUM - SQ 10,000 UNITS/ML VIAL SQ SCH ×2 (06:20→14:00)
[2016-07-14] MEDS: cloNIDine HCL 0.2 MG TAB PO SCH ×2 (06:20→14:00)
[2016-07-14] MEDS: LEVOTHYROXINE SODIUM 100 MCG TAB PO SCH (06:20)
[2016-07-14] MEDS: ASPIRIN EC 81 MG TABEC PO SCH (08:14)
[2016-07-14] MEDS: CALCITRIOL 0.25 MCG CAP PO SCH (08:14)
[2016-07-14] MEDS: CEFEPIME INJ 1,000 MG in SODIUM CHLORIDE 0.9% INJ 100 ML IV SCH (08:17)
[2016-07-14] MEDS: SODIUM CHLORIDE 0.9% FLUSH 10 ML FLUSH IV FLUSH SCH (08:18)
--- NOTE | 2016-07-14 08:24 | HHI.NPPN ---
Subjective Complaints: Shortness of Breath General Problems: Anemia Renal Failure: Chronic Interval History patient is comfortable. To have dialysis today. She has decided to go home instead of rehab. Review of Systems General Constitutional: Fatigue Respiratory Lungs: SOB, Cough, Wheeze Gastrointestinal Gastrointestinal: Constipation Musculoskeletal MS Remarks back pain Objective Data Data 07/13/16 07/14/16 19:00 07:00 Intake Total 590 ml 240 ml Output Total 320 ml Balance 590 ml -80 ml Intake Oral 480 ml 240 ml IV Total 110 ml Output Urine Total 320 ml # Voids 3 # Bowel Movements 0 Vital Signs Date Time Temp Pulse Resp B/P Pulse Ox O2 Delivery O2 Flow Rate FiO2 07/14/16 04:00 97.7 75 19 104/55 98 07/14/16 00:00 98.0 78 19 101/55 99 07/13/16 21:32 Nasal Cannula 3.50 07/13/16 20:58 Nasal Cannula 3.00 07/13/16 20:00 97.8 69 20 131/62 95 07/13/16 16:00 Nasal Cannula 4.00 07/13/16 16:00 98.6 69 18 166/70 96 07/13/16 12:20 Nasal Cannula 4.00 07/13/16 12:00 98.0 73 18 142/68 94 07/13/16 08:30 96 Nasal Cannula 3.00 -: 07/13/16 0744 07/13/16 0744 Physical Exam General Appearance: No Acute Distress, Comfortable, Malnourished Eyes Eye Exam: Pupils Equal Throat Throat Exam: Oral Mucosa [place] & Moist Pulmonary Resp Exam: Breath Sounds Equal, Crackles Cardiology CV Exam: Regular, Normal Sinus Rhythm Gastrointestinal/Abdomen GI Exam: Soft, Non-Tender Musculoskeletal MS Exam: Normal Gait, Normal Tone Integumentary Skin Exam: Warm, Dry Extremeties Extremities Exam: No Edema, Pedal Pulses Palpable Neurologic Neuro Exam: Alert, Awake, Oriented, Speech Clear, Moving All Extremities Psychiatric Psych Exam: Appropriate Responses Assessment/Plan Discussed Condition With: Patient, Spouse Assessment Summary: Anemia of CKD Problem List: (1) ESRD (end stage renal disease) Plan: We will continue dialysis TTS, dialysis today. Continue to monitor volume status and electrolytes. (2) HTN (hypertension) Plan: BP is acceptable continue current medications (3) Anemia Plan: She received blood transfusion. On IV Venofer. (4) Metabolic bone disease Plan: phosphorus level acceptable (5) PNA (pneumonia) Plan: on cefepime may have radiation pneumonitis, consider pulmonary evaluation, follows with Dr. Lafleur on oxygen she will go to rehab after discharge (6) Lung mass Plan: Has received palliative XRT. Prognosis is poor. Plan possible discharge today. Gt Trejo MD July 14, 2016 08:24
--- NOTE | 2016-07-14 09:17 | HHI.PR ---
Subjective Remarks Follow-up [facility] 07/10/16-patient seen and examined, still with compression and complains of chills and denies any diarrheal episode. 07/11/16-patient seen and examined, reports some improvement of shortness of breath. Currently afebrile. States she only had 1 small episode of loose stool yesterday but none since this morning. 07/12/16-patient seen and examined. Patient states she is breathing better and denies any significant complications sputum. Now complains of severe pain. Currently afebrile 07/13/16-patient seen and examined. Patient is now willing to go to SNF. Reports improvement of shortness of breath, cough production. Only complains of back pain 07/14/16-patient seen and examined, patient's report multiple bowel movements status post treatment for constipation yesterday. She does no longer want to go to rehabilitation instead would like to go home. Currently afebrile Objective Vitals Vital Signs Date Time Temp Pulse Resp B/P Pulse Ox O2 Delivery O2 Flow Rate FiO2 07/14/16 08:00 97.5 59 18 152/67 98 07/14/16 04:00 97.7 75 19 104/55 98 07/14/16 00:00 98.0 78 19 101/55 99 07/13/16 21:32 Nasal Cannula 3.50 07/13/16 20:58 Nasal Cannula 3.00 07/13/16 20:00 97.8 69 20 131/62 95 07/13/16 16:00 Nasal Cannula 4.00 07/13/16 16:00 98.6 69 18 166/70 96 07/13/16 12:20 Nasal Cannula 4.00 07/13/16 12:00 98.0 73 18 142/68 94 I/O 07/13/16 07/13/16 07/13/16 07/14/16 07/14/16 07/14/16 07:00 15:00 23:00 07:00 15:00 23:00 Intake Total 240 ml 590 ml 240 ml Output Total 320 ml Balance 240 ml 590 ml -80 ml Intake Oral 240 ml 480 ml 240 ml IV Total 110 ml Output Urine Total 320 ml # Voids 2 3 # Bowel Movements 1 0 Result Diagram: 07/13/16 0744 07/13/1644 Imaging Last Impressions Chest X-Ray 07/08/162208 Signed Impressions: Service Date/Time: Friday, July 08, 2016 22:29 - CONCLUSION: Perihilar infiltrates left greater than right. Stable exam since the . Heart remains enlarged Scot Toro MD Objective Remarks GENERAL: NAD SKIN: Warm and dry. HEAD: Normocephalic. EYES: No scleral icterus. No injection or drainage. NECK: Supple, trachea midline. No JVD or lymphadenopathy. CARDIOVASCULAR: Regular rate and rhythm without murmurs, gallops, or rubs. RESPIRATORY: Breath sounds equal bilaterally. No accessory muscle use. GASTROINTESTINAL: Abdomen soft, non-tender, nondistended. MUSCULOSKELETAL: No cyanosis, or edema. BACK: Nontender without obvious deformity. No CVA tenderness. Procedures none A/P Problem List: (1) HCAP (healthcare-associated pneumonia) ICD Code: J18.9 Status: Acute (2) PNA (pneumonia) ICD Code: J18.9 Status: Acute (3) Diarrhea ICD Code: R19.7 Status: Resolved (4) End stage renal disease on dialysis ICD Code: N18.6 Status: Chronic (5) ESRD (end stage renal disease) ICD Code: N18.6 Status: Acute (6) HTN (hypertension) ICD Code: I10 Status: Acute (7) Iron deficiency anemia ICD Code: D50.9 Status: Acute Assessment and Plan 81-year-old female with HCAP Fluid overload CXR reviewed and reveals: Perihilar infiltrates left greater than right. Stable exam since the . Heart remains enlarged BC,sputum culture ordered s/p Vancomycin and Zosyn in ER Continue Cefepime IV Albuterol neb Q6H and as needed -Diarrhea-Resolved - ESRD - Nephrology ff. HD T, , S -Anemia of chronic blood loss/chronic kidney disease Transfused 2 unit packed red blood cell -Iron deficiency anemia Transfused Venofer 100mg IV Q day x 3 days - Hypertension -soft BP and continue to hold clonidine 0.2 mg by mouth every 8 hours, losartan 100 mg daily, metoprolol succinate 25 mg daily, Only give nifedipine 90 mg by mouth daily - Hypothyroidism - continue levothyroxine 100 g daily. 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 Followed by Dr. Gonsalez (Heme/Onc). Full code. Heparin SQ Pontey,Patrice MD July 14, 2016 09:17
--- NOTE | 2016-07-14 09:18 | HHI.FF ---
Face to Face Verification Diagnosis: (1) HCAP (healthcare-associated pneumonia) (2) End stage renal disease on dialysis (3) Small cell lung cancer Physical Therapy Order: Evaluate and Treat Home Health Nursing Order: Signs/symptoms of disease process I have seen patient Georgia Calderon on 07/14/16. My clinical findings support the need for the requested home health care services because: Deconditioned w/ increased weakness I certify that my clinical findings support that this patient is homebound because: Poor cardiac reserve Patrice Madison MD July 14, 2016 09:18
--- NOTE | 2016-07-14 09:22 | HHI.DS ---
Discharge Summary Admission Date July 09, 2016 at 02:37 Discharge Date: July 14, 2016 Admitting Diagnosis Pulmonary edema (1) HCAP (healthcare-associated pneumonia) ICD Code: J18.9 (2) PNA (pneumonia) ICD Code: J18.9 (3) Diarrhea ICD Code: R19.7 (4) End stage renal disease on dialysis ICD Code: N18.6 (5) ESRD (end stage renal disease) ICD Code: N18.6 (6) HTN (hypertension) ICD Code: I10 (7) Iron deficiency anemia ICD Code: D50.9 Procedures none Brief History - From Admission Written by Flory Constantino, acting as scribe for Dr. Lopez on 07/09/16 at 04: 35. This is an 81-year-old female with a history of end-stage renal disease on hemodialysis, hypertension, diabetes type 2, peptic ulcer disease, Lung cancer treated with radiation treatments completed a total of 15 treatments 1 week ago. Patient was recently in the hospital from 07/04/16- . Patient retuned to the ER because, "My whole body collapsed." Patient reports that she became extremely weak had to have family members carry her to the bathroom at which time she had liquid diarrhea 3-4 times today. Diarrhea started today. Diarrhea associated with increased flatus. Patient denies abdominal pain. No evidence of black stool or red blood per rectum. Patient also has subjective fevers with sweats and chills Patient denies vomiting Patient does still produce urine denies dysuria. Patient also reports shortness of breath and cough productive of bright yellow sputum x 1 week. CXR reviewed and reveals: Perihilar infiltrates left greater than right. Stable exam since the . Heart remains enlarged. Patient was prescribed Levaquin while she was in the hospital, but she refused to take the Levaquin due to allergy. CBC/BMP: 07/13/16 0744 07/13/16 0744 Significant Findings Laboratory Tests Test 07/13/16 07:44 Red Blood Count 3.78 MIL/MM3 (4.00-5.30) Hemoglobin 10.7 GM/DL (11.6-15.3) Hematocrit 33.8 % (35.0-46.0) Mean Corpuscular Hemoglobin 31.8 % Concent (32.0-36.0) Neutrophils (%) (Auto) 76.9 % (16.0-70.0) Monocytes (%) (Auto) 9.3 % (0.0-8.0) Lymphocytes # (Auto) 0.5 TH/MM3 (1.0-4.8) Sodium Level 135 MEQ/L (136-145) Chloride Level 96 MEQ/L (98-107) Blood Urea Nitrogen 44 MG/DL (7-18) Creatinine 2.68 MG/DL (0.50-1.00) Estimat Glomerular Filtration 17 ML/MIN (>89) Rate Calcium Level 8.4 MG/DL (8.5-10.1) Imaging Last Impressions Chest X-Ray 07/08/16 7279 Signed Impressions: Service Date/Time: Friday, July 08, 2016 22:29 - CONCLUSION: Perihilar infiltrates left greater than right. Stable exam since the . Heart remains enlarged Scot Toro MD PE at Discharge GENERAL: NAD SKIN: Warm and dry. HEAD: Normocephalic. EYES: No scleral icterus. No injection or drainage. NECK: Supple, trachea midline. No JVD or lymphadenopathy. CARDIOVASCULAR: Regular rate and rhythm without murmurs, gallops, or rubs. RESPIRATORY: Breath sounds equal bilaterally. No accessory muscle use. GASTROINTESTINAL: Abdomen soft, non-tender, nondistended. MUSCULOSKELETAL: No cyanosis, or edema. BACK: Nontender without obvious deformity. No CVA tenderness. Hospital Course Patient was admitted secondary to healthcare associated pneumonia for which she was started on IV antibiotic with significant improvement of symptoms. Bronchodilator and oxygen saturation was maintained above 90%. Nephrology was consulted and she continued to receive hemodialysis. She was continued on the treatment for other chronic medical conditions. DVT and GI prophylaxis were provided. Pt Condition on Discharge: Stable Discharge Disposition: Disch w/ Home Health Serv Discharge Time: > 30 minutes Discharge Instructions DIET: Follow Instructions for: Heart Healthy Diet Activities you can perform: Regular-No Restrictions Follow up Referrals: Nephrology PCP Follow-up - 1 Week New Medications: Doxycycline Hyclate (Doxycycline Hyclate) 100 Mg Cap 100 MG PO BID Infection #6 Ref 0 CAP Continued Medications: Albuterol 18 GM Inh (Ventolin Hfa 18 GM Inh) 90 Mcg/Act Aer 2 PUFF INH Q4H PRN SHORTNESS OF BREATH #1 Ref [address] (Aspirin Adult Low Strength) 81 Mg Tabdr 81 MG PO DAILY TAB Atorvastatin (Atorvastatin) 10 Mg Tab 10 MG PO HS Cholesterol Management Ref 0 TAB Calcitriol (Calcitriol) 0.25 Mcg Cap 0.25 MCG PO DAILY Calcium Supplement #30 Ref 0 CAP Fenofibrate (Fenofibrate) 54 Mg Tab 54 MG PO AC LUNCH Cholesterol Management Ref 0 TAB Ferrous Sulfate (Ferrous Sulfate) 325 Mg Tab 325 MG PO BID Nutritional Supplement #30 Ref 0 TAB Fluoxetine (Fluoxetine) 20 Mg Tab 20 MG PO HS Depression Control Ref 0 TAB Fluticasone Nasal Deport (Flonase Nasal Deport) 50 Mcg/Act Deport 2 SPRAY EACH NARE DAILY PRN ALLERGIES #1 Ref 0 BOTTLE Levothyroxine (Levothyroxine) 100 Mcg Tab 100 MCG PO DAILY Thyroid Ref 0 TAB Lutein (Lutein) 20 Mg Cap 20 MG PO DAILY Nutritional Supplement Ref 0 CAP Metoprolol Succinate ER 24 HR (Metoprolol Succinate ER 24 HR) 25 Mg Tab 25 MG PO DAILY Blood Pressure Management Ref 0 TAB Morphine ER (Morphine ER) 15 Mg Tab 15 MG PO Q8H PRN pain Ref 0 TAB Multiple Vitamins W/ Minerals (Centrum Silver Adult 50+) 1 Tab Tab 1 TAB PO AC LUNCH Nifedipine (Nifedipine ER) 90 Mg Tab 90 MG PO DAILY Omeprazole (Omeprazole) 40 Mg Cap 40 MG PO DAILY #30 Ref 0 CAP Sennosides-Docusate Sodium (Senna S) 8.6-50 Mg Tab 4 TAB PO HS Sucralfate (Sucralfate) 1 Gm Tab 1 GM PO TID on empty stomach ULCER PREVENTION #90 Ref 0 TAB Discontinued Medications: Hydrocodone-Acetaminophen (Hydrocodone-Acetaminophen) 5-325 mg Tab 1 TAB PO Q4H PRN pain 3-5 #30 TAB Patrice Madison MD July 14, 2016 09:22
[2016-07-14] MEDS ORDERED: DOXY100C PO (09:24)
[2016-07-14] MEDS: NIFEdipine 90 MG SUSTAINED RELEASE TAB PO SCH (09:38)
[2016-07-14] MEDS: METOPROLOL SUCCINATE 25 MG EXTENDED RELEASE TAB PO SCH (09:38)
[2016-07-14] MEDS: LOSARTAN 50 MG TAB PO SCH (09:38)
[2016-07-14] MEDS ORDERED: ONDANSETRON HCL 4 MG/2 ML VIAL IV PUSH ONE (12:00)
[2016-07-14] MEDS: EPOETIN ALFA 10,000 UNITS/ML VIAL IV PRN (17:47)
[2016-07-16 08:38] LABS: CRITICAL VALUE YES; DRAW SITE RT RADIAL; ULNAR PULSE PRESENT
--- NOTE | 2016-08-05 11:22 | PQ ---
Physician Query Response Document PATIENT: TERESSA ESCOBEDO : 1935 ADMIT DATE: 07/09/2016 2:37 AM DISCH DATE: 07/14/2016 10:13 PM RESPONDING PROVIDER #: Rik QUERY TEXT: Sepsis Query Based on your medical judgement, can you further clarify the followiin. Sepsis (SIRS due to an infection) 2. Sepsis with Organ Dysfunction 3. A localized Infection only 4. Another condition - please specify 5. Unable to determine - please explain. Depending on your selection above, please indicate one of the below if applicable: - Sepsis was present on Admission - Sepsis developed after admission The patient's Clinical Indicators include: INITIAL O2 SAT 88% RR 26 BIPAP / CPAP PLACED W SAT ADJUSTMENT Q 2 - 4 HR HX COPD AND O2 DEPENDENT adm DX PNA LUNG CANCER radiation treatments completed 1 week ago. CXR reviewed and reveals: Perihilar infiltrates left greater than right. Stable exam since the . Heart remains enlarged EVAC, pt had temperature of 100.4 F and blood pressure was low in the 80s to 90s systolic on arrival to ER T 99.4 HR 98, RR 26, BP 117/55 lactic ACID 2.7 AND 1.3 Labs reviewed, leukocytosis at 12.1. Lactic acid is elevated at 2.7. received Vancomycin and Zosyn in ER start Cefepime IV Query created by: Zehra Higgins on 07/10/2016 9:15 AM RESPONSE TEXT: sepsis with organ dysfunction QUERY TEXT: Clarification of Clinical Diagnostic Findings Based on your medical judgment, can you further clarify which, if any, of the following condition( s) is/are responsible for these findings: Acute respiratory failure - With hypoxia - With hypercapnia Acute on Chronic Respiratory Failure With hypoxia - With hypercapnia Chronic respiratory failure- Chronic COPD Acute exacerbation COPD CHF EXACERBATION please specify systolic or diastolic Other Specify Unable to determine (*please explain) The patient's Clinical Indicators include: INITIAL O2 SAT 88% RR 26 BIPAP / CPAP PLACED W SAT ADJUSTMENT Q 2 - 4 HR COPD AND O2 DEPENDENT CHF W BNP 845 CXR W VASCULAR CONGESTION IV LASIX GIVEN Query created by: Zehra Higgins on 07/10/2016 9:41 AM RESPONSE TEXT: acute on chronic respiratory failure with Hypoxia- with hypercapnia Electronically signed by: Patrice Madison MD 08/05/2016 11:18 AM
== END 2016-07-14 22:13 | disposition home health service (06) | DRG 871 ==
LOC: NEPE 21:52 → NEDA 07-09 01:09 → OBSVTOIN 07-09 02:37 → NEPGCP 07-09 04:06 → N04B 07-09 15:24
PROVIDERS: ADMIT Hospitalist; ATTEND Hospitalist
PROC: 5A1D60Z (ICD-10-PCS; principal; 2016-07-09)
PROC: 30233N1 Transfusion of Nonautologous Red Blood Cells into Peripheral Vein, Percutaneous Approach (ICD-10-PCS; 2016-07-09)
DX: A41.9 Sepsis, unspecified organism (principal); J44.0 Chronic obstructive pulmonary disease with (acute) lower respiratory infection; J18.9 Pneumonia, unspecified organism; J96.21 Acute and chronic respiratory failure with hypoxia; J96.22 Acute and chronic respiratory failure with hypercapnia; R65.20 Severe sepsis without septic shock; I12.0 Hypertensive chronic kidney disease with stage 5 chronic kidney disease or end stage renal disease; N18.6 End stage renal disease; E88.89 Other specified metabolic disorders; C34.90 Malignant neoplasm of unspecified part of unspecified bronchus or lung; D63.1 Anemia in chronic kidney disease; E11.22 Type 2 diabetes mellitus with diabetic chronic kidney disease; I50.9 Heart failure, unspecified; Z99.2 Dependence on renal dialysis; Z92.3 Personal history of irradiation; Z99.81 Dependence on supplemental oxygen; D50.0 Iron deficiency anemia secondary to blood loss (chronic); F32.9 Major depressive disorder, single episode, unspecified; E03.9 Hypothyroidism, unspecified; E78.5 Hyperlipidemia, unspecified; K21.9 Gastro-esophageal reflux disease without esophagitis; R19.7 Diarrhea, unspecified; Z87.11 Personal history of peptic ulcer disease; Z87.891 Personal history of nicotine dependence
CPT/HCPCS: 36430; 36600; 71010; 80048; 81001; 82550; 82805; 83605; 83880; 84100; 84443; 84484; 85025; 85610; 85730; 86850; 86900; 86901; 86920; 87040; 87086; 90935; 93005; 94002; 94640; 94664; 96374; J0692; J1644; J1756; J1940; J2405; J2543; J3370; J7030; J7050; J7613; P9016; Q4081

== ENCOUNTER 2016-10-13 10:05 | Inpatient (IN) | payer OTHER, MEDICARE ==
[2016-10-13] VITALS (10 sets, daily range): BP systolic 140–207; BP diastolic 63–91; PULSE 64–78; RESP 15–20; TEMP 97.6–98.7; O2SAT 94–98
[~2016-10-13] VITALS: Ht 154.9 cm; Wt 51.2 kg
[~2016-10-13 10:05] MED LIST changes: +DOXY100C PO; -HYDR-3516 PO; -PRED20 PO; -TRAD5TAB PO; -ZOFR4TAB3 SL
[2016-10-13] MEDS ORDERED: FUROSEMIDE 40 MG/4 ML VIAL IVP ONE (10:30)
[2016-10-13] MEDS ORDERED: SODIUM CHLORIDE 0.9% FLUSH 10 ML FLUSH IVF PRN (10:30)
[2016-10-13] MEDS ORDERED: NITROGLYCERIN 2% OINT 1 GM PACKET TOPICAL ONE (10:30)
--- NOTE | 2016-10-13 10:46 | PD ---
HPI . "I can't breathe" Chief Complaint: Cardiac Complaint Time Seen by Provider: 10:17 Travel History International Travel<30 days: No Contact w/Intl Traveler<30days: No Traveled to known affect area: No History of Present Illness HPI This patient presents with the acute onset of dyspnea. It awakened her from sleep at 3 AM. She states she felt fine when she went to bed last night. Pertinent history is that she is a dialysis patient and missed her dialysis on Wednesday. She is supposed to be in dialysis today but is not there because she is here. The dyspnea had an acute onset and has been persistent since that time. Her dyspnea is somewhat relieved by oxygen. The dyspnea is severe. PFSH Past Medical History Hx Anticoagulant Therapy: Yes Arthritis: Yes Asthma: No Blood Disorders: No Anxiety: No Depression: No Heart Rhythm Problems: No Cancer: Yes (lung) Cardiovascular Problems: Yes High Cholesterol: Yes Chemotherapy: No Chest Pain: Yes Congestive Heart Failure: Yes COPD: Yes Diabetes: No Dialysis: Yes (Wed) Diminished Hearing: No Diverticulitis: Yes Endocrine: Yes Gastrointestinal Disorders: Yes (ACID REFLUX) GERD: Yes Genitourinary: Yes Hepatitis: No Hiatal Hernia: Yes Hypertension: Yes Immune Disorder: No Musculoskeletal: Yes Neurologic: No Psychiatric: No Reproductive: No Respiratory: Yes Immunizations Current: Yes Radiation Therapy: Yes Renal Failure: Yes Sleep Apnea: No Thyroid Disease: Yes Triglycerides - High: Yes : 5 Para: 5 Miscarriage: 0 : 0 Tubal Ligation: Yes Past Surgical History Abdominal Surgery: Yes (gallbladder removal, colon resection) AICD: No Appendectomy: Yes Arteriovenous Shunt: Yes Body Medical Devices: LEFT SIDE FISTULA Cholecystectomy: Yes (JAN 2016 ) Joint Replacement: No Pacemaker: No Thoracic Surgery: Yes (lt fistula ) Other Surgery: Yes (L WRIST ) Social History Alcohol Use: No Tobacco Use: Yes (11 yrs ago) Substance Use: No Allergies-Medications (Allergen,Severity, Reaction): Coded Allergies: diatrizoate meglumine (Unverified Allergy, Severe, Hives, 09/29/16) gadobenic acid (Unverified Allergy, Severe, Hives, 09/29/16) gadodiamide (Unverified Allergy, Severe, Hives, 09/29/16) gadoteridol (Unverified Allergy, Severe, Hives, 09/29/16) iodixanol (Unverified Allergy, Severe, Hives, 09/29/16) iohexol (Unverified Allergy, Severe, Hives, 09/29/16) metronidazole (Unverified Allergy, Severe, DIFFICULTY BREATHING, EXTREME NAUSEA, VOMITING, 09/29/16) cholestyramine (Unverified Adverse Reaction, Intermediate, STOMACH UPSET, 09/29/16) codeine (Unverified Adverse Reaction, Intermediate, UPSET STOMACH, 09/29/16 ) colesevelam (Unverified Adverse Reaction, Intermediate, STOMACH UPSET, ) gemfibrozil (Unverified Adverse Reaction, Intermediate, STOMACH UPSET, ) levofloxacin (Unverified Adverse Reaction, Intermediate, Nausea/Vomiting, 09/29/16) patient said it gave her extreme anxiety also. lorazepam (Unverified Adverse Reaction, Intermediate, STOMACH UPSET, ) lovastatin (Unverified Adverse Reaction, Intermediate, STOMACH UPSET, 09/29) propoxyphene (Unverified Adverse Reaction, Intermediate, UPSET STOMACH, ) Reported Meds & Prescriptions Reported Meds & Active Scripts Active Doxycycline Hyclate 100 Mg Cap 100 Mg PO BID Oxygen tank (Oxygen) 1 Ea Tank 2 Liter CLEMENTE.CANULA CONTINUOUS Oxygen Concentrator Portable Gaseous 2 L/min via Nasal Cannula Continuous For 99 months Reported Morphine ER (Morphine Sulfate) 15 Mg Tab 15 Mg PO Q8H PRN Nifedipine ER (Nifedipine) 90 Mg Tab 90 Mg PO DAILY Omeprazole 40 Mg Cap 40 Mg PO DAILY Sucralfate 1 Gm Tab 1 Gm PO TID on empty stomach Losartan (Losartan Potassium) 100 Mg Tab 100 Mg PO DAILY Levothyroxine (Levothyroxine Sodium) 100 Mcg Tab 100 Mcg PO DAILY Flonase Nasal [place] (Fluticasone Nasal [place]) 50 Mcg/Act [place] 2 [place] EACH NARE DAILY PRN Centrum Silver Adult 50+ (Multiple Vitamins W/ Minerals) 1 Tab Tab 1 Tab PO AC LUNCH Senna S (Sennosides-Docusate Sodium) 8.6-50 Mg Tab 4 Tab PO HS Lutein 20 Mg Cap 20 Mg PO DAILY Ferrous Sulfate 325 Mg Tab 325 Mg PO BID Fluoxetine (Fluoxetine HCl) 20 Mg Tab 20 Mg PO HS Fenofibrate 54 Mg Tab 54 Mg PO AC LUNCH Catapres (Clonidine) 0.2 Mg Tab 0.2 Mg PO Q8HR Atorvastatin (Atorvastatin Calcium) 10 Mg Tab 10 Mg PO HS Calcitriol 0.25 Mcg Cap 0.25 Mcg PO DAILY Aspirin Adult Low Strength (Aspirin) 81 Mg Tabdr 81 Mg PO DAILY Ventolin Hfa 18 GM Inh (Albuterol Sulfate) 90 Mcg/Act Aer 2 Puff INH Q4H PRN Metoprolol Succinate ER 24 HR (Metoprolol Succinate) 25 Mg Tab 25 Mg PO DAILY Review of Systems Except as stated in HPI: all other systems reviewed are Neg Cardiovascular: Positive: Chest Pain or Discomfort Respiratory: Positive: Shortness of Breath Physical Exam Narrative GENERAL: This patient appears to be in respiratory distress. SKIN: Warm and dry. Jones color. HEAD: Atraumatic. Normocephalic. EYES: Pupils equal and round. Extraocular movements intact. ENT: No nasal bleeding or discharge. Mucous membranes pink and moist. NECK: Trachea midline. Neck supple. CARDIOVASCULAR: Regular rate and rhythm. Heart sounds normal. RESPIRATORY: Tachypneic. Diffuse rales. GASTROINTESTINAL: Abdomen soft, non-tender, nondistended. MUSCULOSKELETAL: No obvious deformities. No edema. NEUROLOGICAL: Awake and alert. No obvious cranial nerve deficits. Motor grossly within normal limits. Normal speech. PSYCHIATRIC: Appropriate mood and affect; insight and judgment normal. Data Data Last Documented VS Vital Signs Date Time Temp Pulse Resp B/P (MAP) Pulse Ox O2 Delivery O2 Flow Rate FiO2 10/13/16 10:39 98 Nasal Cannula 3.00 10/13/16 10:39 64 10/13/16 10:39 16 199/84 (122) 10/13/16 10:06 98.4 Orders Orders Complete Blood Count With Diff (10/13/16 10:26) Basic Metabolic Panel (Bmp) (10/13/16 10:26) Ckmb (Isoenzyme) Profile (10/13/16 10:26) Iv Access Insert/Monitor (10/13/16 10:26) Ecg Monitoring (10/13/16 10:26) Oximetry (10/13/16 10:26) Oxygen Administration (10/13/16 10:26) Chest, Single Ap (10/13/16 10:26) Sodium Chloride 0.9% Flush (Ns Flush) (10/13/16 10:30) Furosemide Inj (Lasix Inj) (10/13/16 10:30) Nitroglycerin 2% Oint (Nitroglycerin 2% (10/13/16 10:30) Morphine Inj (Morphine Inj) (10/13/16 11:00) Blood Culture (10/13/16 11:06) Ceftriaxone Inj (Rocephin Inj) (10/13/16 11:15) Azithromycin Inj (Zithromax Inj) (10/13/16 11:15) Consult Nephrology (10/13/16 ) Admit Order (Ed Use Only) (10/13/16 11:48) Labs Laboratory Tests Test 10/13/16 10:32 White Blood Count 6.0 TH/MM3 Red Blood Count 3.07 MIL/MM3 Hemoglobin 9.9 GM/DL Hematocrit 31.3 % Mean Corpuscular Volume 101.9 FL Mean Corpuscular Hemoglobin 32.3 PG Mean Corpuscular Hemoglobin Concent 31.7 % Red Cell Distribution Width 15.4 % Platelet Count 167 TH/MM3 Mean Platelet Volume 7.5 FL Neutrophils (%) (Auto) 77.4 % Lymphocytes (%) (Auto) 10.6 % Monocytes (%) (Auto) 10.1 % Eosinophils (%) (Auto) 0.9 % Basophils (%) (Auto) 1.0 % Neutrophils # (Auto) 4.6 TH/MM3 Lymphocytes # (Auto) 0.6 TH/MM3 Monocytes # (Auto) 0.6 TH/MM3 Eosinophils # (Auto) 0.1 TH/MM3 Basophils # (Auto) 0.1 TH/MM3 CBC Comment DIFF FINAL Differential Comment Blood Urea Nitrogen 65 MG/DL Creatinine 3.76 MG/DL Random Glucose 105 MG/DL Calcium Level 8.6 MG/DL Sodium Level 145 MEQ/L Potassium Level 4.3 MEQ/L Chloride Level 115 MEQ/L Carbon Dioxide Level 17.3 MEQ/L Anion Gap 13 MEQ/L Estimat Glomerular Filtration Rate 11 ML/MIN Total Creatine Kinase 24 U/L MDM Medical Decision Making Medical Screen Exam Complete: Yes Emergency Medical Condition: Yes Interpretation(s) EKG shows a sinus rhythm with no ST segment elevation or depression. Differential Diagnosis Differential diagnosis of dyspnea includes but is not limited to congestive heart failure, pneumonia, wheezing, pneumothorax, pulmonary embolism Narrative Course This is a dyspneic patient who has missed her last 2 dialysis appointments. The most likely etiology of her dyspnea is fluids. I have ordered Lasix, morphine and nitroglycerin. She is on oxygen. CBC & BMP Diagram 10/13/16 10:32 Calcium Level 8.6 CK is normal. I did not do a troponin because of her history of renal failure. Last Impressions Chest X-Ray 10/13/16 1026 Signed Impressions: Service Date/Time: Thursday, October 13, 2016 10:33 - CONCLUSION: New right upper lobe parahilar airspace disease infiltrate Uri Ramirez MD The chest x-ray was independently viewed by me. This could be radiation pneumonitis. But, I have added blood cultures ordered IV Rocephin and IV Zithromax. Diagnosis Primary Impression: Dyspnea Qualified Codes: R06.00 - Dyspnea, unspecified Additional Impressions: Pneumonitis End stage renal disease on dialysis Admitting Information Admitting Physician Requests: Admit Condition: Stable María Stiles MD Oct 13, 2016 10:46
[2016-10-13 10:49] LABS: AUTOMATED NEUTROPHIL # 4.6 TH/MM3 (1.8-7.7); BASOPHIL # 0.1 TH/MM3 (0-0.2); EOSINOPHIL # 0.1 TH/MM3 (0-0.4); EOSINOPHIL % 0.9 % (0.0-4.0); HEMATOCRIT 31.3 % (35.0-46.0); HEMO FLAGS DIFF FINAL; LYMPH % 10.6 % (9.0-44.0); LYMPHOCYTE # 0.6 TH/MM3 (1.0-4.8); MEAN CELL VOLUME 101.9 FL (80.0-100.0); MEAN CORPUSCULAR HEMOGLOBIN 32.3 PG (27.0-34.0); MEAN CORPUSCULAR HGB CONC 31.7 % (32.0-36.0); MONO % 10.1 % (0.0-8.0); NEUT % 77.4 % (16.0-70.0); PLATELET COUNT 167 TH/MM3 (150-450); RED BLOOD COUNT 3.07 MIL/MM3 (4.00-5.30); RED CELL DISTRIBUTION WIDTH 15.4 % (11.6-17.2)
--- NOTE | 2016-10-13 10:58 | RADRPT ---
EXAM DATE/TIME: 10/13/2016 10:33 [facility] COMPARISON: CHEST SINGLE AP, July 08, 2016, 22:29. INDICATIONS : Short of breath. Patient c/o chest pain and difficulty breathing. MEDICAL HISTORY : Carcinoma, lung. Chronic obstructive pulmonary disease. Congestive heart failure.Hypercholesterolemia . Hypertension SURGICAL HISTORY : Appendectomy. Cholecystectomy.Colon resection.Tubal ligation. ENCOUNTER: Initial ACUITY: 1 day PAIN SCORE: 10/10 LOCATION: Bilateral chest FINDINGS: Note is atherosclerotic changes aorta with borderline left ventricular cardiomegaly. Left perihilar i nfiltrates persist unchanged and now there is a prominent right perihilar upper lobe infiltrate could represent pneumonitis. CONCLUSION: New right upper lobe parahilar airspace disease infiltrate Uri Ramirez MD on October 13, 2016 at 10:55 Board Certified Radiologist. This report was verified electronically.
[2016-10-13] MEDS ORDERED: MORPHINE SULFATE 4 MG/ML INJ IV PUSH ONE (11:00)
[2016-10-13 11:10] LABS: BICARBONATE 17.3 MEQ/L (21.0-32.0); POTASSIUM 4.3 MEQ/L (3.5-5.1)
[2016-10-13] MEDS ORDERED: AZITHROMYCIN INJ 500 MG in SODIUM CHLOR 0.9% 250 ML INJ 250 ML IV ONE (11:15)
[2016-10-13] MEDS ORDERED: cefTRIAXone INJ 1,000 MG in SODIUM CHLORIDE 0.9% INJ 100 ML IV ONE (11:15)
[2016-10-13] MEDS ORDERED: SODIUM CHLORIDE 0.9% FLUSH 10 ML FLUSH IV FLUSH PRN ×2 (12:00→17:00)
[2016-10-13] MEDS ORDERED: SENNOSIDES 8.6 MG TAB PO PRN (12:00)
[2016-10-13] MEDS ORDERED: cloNIDine HCL 0.1 MG TAB PO PRN ×2 (12:00→17:00)
[2016-10-13] MEDS ORDERED: ONDANSETRON HCL 4 MG/2 ML VIAL IVP PRN (12:00)
[2016-10-13] MEDS ORDERED: ACETAMINOPHEN 325 MG TAB PO PRN ×2 (12:00→17:00)
[2016-10-13] MEDS ORDERED: RESP: ALBUTEROL 2.5 MG/IPRATROPIUM 0.5 MG NEB (SCH) NEB (12:00)
[2016-10-13] MEDS ORDERED: LACTULOSE SYRUP 20 GM/30 ML CUP PO PRN (12:00)
[2016-10-13] MEDS ORDERED: NALOXONE HCL 0.4 MG/ML AMP IV PRN (12:00)
[2016-10-13] MEDS ORDERED: RESP: ALBUTEROL 2.5 MG/3 ML NEB (PRN) NEB (12:00)
[2016-10-13] MEDS ORDERED: BISACODYL 10 MG SUPP RECTAL PRN (12:00)
[2016-10-13] MEDS ORDERED: MAGNESIUM HYDROXIDE SUSP 30 ML CUP PO PRN (12:00)
[2016-10-13] MEDS: NIFEdipine 90 MG SUSTAINED RELEASE TAB PO SCH (12:38)
--- NOTE | 2016-10-13 13:03 | HHI.HP ---
HPI Service [facility] Primary Care Physician Terrell Olmstead MD Admission Diagnosis dyspnea, renal failure, fluid overload Diagnoses: Chief Complaint: shortness of breath Travel History International Travel<30 Days: No Contact w/Intl Traveler <30 Da: No Traveled to Known Affected Are: No History of Present Illness Written by Theresa Tuttle, acting as scribe for Dr. Mckenzie on 10/13/16 at 13: 01. 81-year-old female with history of Lung Cancer, HTN, HLD, DM, COPD O2 dependent , CHF, ESRD on HD, GERD, presents with a 2 day history of weakness and shortness of breath. The patient reports yesterday she started to feel weak and experience some intermittent substernal/epigastric pain. Then around 2am this morning, she woke up and could "hardly breathe" with some left anterior mild chest pains. She states she got up to go to the restroom and almost didn't make it back to the bed because she was significantly short of breath. She recently returned from a trip to the [facility], drove 5 hours 2 days ago, and 5 hours yesterday. She admits to missing dialysis on Wednesday because of the trip, and she is due for dialysis again today. She does report bilateral lower extremity swelling around her ankles after the trip. She reports having a headache, with nausea, but no vomiting. Denies any fevers/chills. She has had a mild nonproductive cough. She has been using her nebulizer without much relief. She states this has happened previously and she was diagnosed with pneumonia at that time. She is in the process of initiating radiation with Dr. Giron but has not started treatment yet. She also sees moss bleacher Dr. Lafleur. Since her arrival, she has received a breathing treatment, IV lasix, IV morphine , and now her pains resolved, dyspnea improved, and she feels much better. Review of Systems Except as stated in HPI: all other systems reviewed are Neg Past Family Social History Past Medical History Lung Cancer Hypertension Dyslipidemia Diabetes type 2 COPD CHF End-stage renal disease on HD GERD Depression Hypothyroidism Past Surgical History cholecystectomy Left wrist surgery Colon resection and excellent hernia repair Lysis of adhesions Arteriovenous shunt placement Reported Medications Oxygen tank (Oxygen) 1 Ea Tank 2 Liter CLEMENTE.CANULA CONTINUOUS Oxygen Concentrator Portable Gaseous 2 L/min via Nasal Cannula Continuous For 99 months Morphine ER (Morphine Sulfate) 15 Mg Tab 15 Mg PO Q8H PRN Nifedipine ER (Nifedipine) 90 Mg Tab 90 Mg PO DAILY Omeprazole 40 Mg Cap 40 Mg PO DAILY Sucralfate 1 Gm Tab 1 Gm PO TID on empty stomach Losartan (Losartan Potassium) 100 Mg Tab 100 Mg PO DAILY Levothyroxine (Levothyroxine Sodium) 100 Mcg Tab 100 Mcg PO DAILY Flonase Nasal [place] (Fluticasone Nasal [place]) 50 Mcg/Act [place] 2 [place] EACH NARE DAILY PRN Centrum Silver Adult 50+ (Multiple Vitamins W/ Minerals) 1 Tab Tab 1 Tab PO AC LUNCH Senna S (Sennosides-Docusate Sodium) 8.6-50 Mg Tab 4 Tab PO HS Lutein 20 Mg Cap 20 Mg PO DAILY Ferrous Sulfate 325 Mg Tab 325 Mg PO BID Fluoxetine (Fluoxetine HCl) 20 Mg Tab 20 Mg PO HS Fenofibrate 54 Mg Tab 54 Mg PO AC LUNCH Catapres (Clonidine) 0.2 Mg Tab 0.2 Mg PO Q8HR Atorvastatin (Atorvastatin Calcium) 10 Mg Tab 10 Mg PO HS Calcitriol 0.25 Mcg Cap 0.25 Mcg PO DAILY Aspirin Adult Low Strength (Aspirin) 81 Mg Tabdr 81 Mg PO DAILY Ventolin Hfa 18 GM Inh (Albuterol Sulfate) 90 Mcg/Act Aer 2 Puff INH Q4H PRN Metoprolol Succinate ER 24 HR (Metoprolol Succinate) 25 Mg Tab 25 Mg PO DAILY Allergies: Coded Allergies: diatrizoate meglumine (Unverified Allergy, Severe, Hives, 09/29/16) gadobenic acid (Unverified Allergy, Severe, Hives, 09/29/16) gadodiamide (Unverified Allergy, Severe, Hives, 09/29/16) gadoteridol (Unverified Allergy, Severe, Hives, 09/29/16) iodixanol (Unverified Allergy, Severe, Hives, 09/29/16) iohexol (Unverified Allergy, Severe, Hives, 09/29/16) metronidazole (Unverified Allergy, Severe, DIFFICULTY BREATHING, EXTREME NAUSEA, VOMITING, 09/29/16) cholestyramine (Unverified Adverse Reaction, Intermediate, STOMACH UPSET, 09/29/16) codeine (Unverified Adverse Reaction, Intermediate, UPSET STOMACH, 09/29/16 ) colesevelam (Unverified Adverse Reaction, Intermediate, STOMACH UPSET, ) gemfibrozil (Unverified Adverse Reaction, Intermediate, STOMACH UPSET, ) levofloxacin (Unverified Adverse Reaction, Intermediate, Nausea/Vomiting, 09/29/16) patient said it gave her extreme anxiety also. lorazepam (Unverified Adverse Reaction, Intermediate, STOMACH UPSET, ) lovastatin (Unverified Adverse Reaction, Intermediate, STOMACH UPSET, 09/29) propoxyphene (Unverified Adverse Reaction, Intermediate, UPSET STOMACH, ) Active Ordered Medications Current Medications Medications (Trade) Dose Ordered Sig/Raheel Route Start Time Stop Time Status Last Admin (NS Flush) 2 ml UNSCH PRN IV FLUSH 10/13/16 12:00 (NS Flush) 2 ml BID IV FLUSH 10/13/16 21:00 (Tylenol) 650 mg Q4H PRN PO 10/13/16 12:00 (Zofran Inj) 4 mg Q6H PRN IVP 10/13/16 12:00 (Narcan Inj) 0.4 mg UNSCH PRN IV 10/13/16 12:00 (Milk Of Magnesia Liq) 30 ml Q12H PRN PO 10/13/16 12:00 (Senokot) 17.2 mg Q12H PRN PO 10/13/16 12:00 (Dulcolax Supp) 10 mg DAILY PRN RECTAL 10/13/16 12:00 (Lactulose Liq) 30 ml DAILY PRN PO 10/13/16 12:00 (Duoneb Neb) 1 ampule Q4HR WHILE AWAKE NEB NEB 10/13/16 12:00 (Albuterol Neb) 2.5 mg Q2HR NEB PRN NEB 10/13/16 12:00 10/13/16 12:17 (Catapres) 0.2 mg Q8HR PO 10/13/16 14:00 (Cozaar) 100 mg DAILY PO 10/13/16 13:00 (Toprol Xl) 25 mg DAILY PO 10/14/16 09:00 (Procardia Xl) 90 mg DAILY PO 10/13/16 12:00 10/13/16 12:38 (Catapres) 0.1 mg Q6H PRN PO 10/13/16 12:00 Family History Mother had uterine cancer and with heart attack Daughter with breast cancer Sister secondary to lung cancer Social History Lives at home with , occasionally children visit Quit tobacco use 11 years ago Denies any alcohol or illicit drug use. Physical Exam Vital Signs Vital Signs Date Time Temp Pulse Resp B/P (MAP) Pulse Ox O2 Delivery O2 Flow Rate FiO2 10/13/16 12:17 97 Nasal Cannula 2.00 10/13/16 11:51 65 16 207/79 (121) 97 Nasal Cannula 3.00 10/13/16 10:39 98 Nasal Cannula 3.00 10/13/16 10:39 64 98 Nasal Cannula 3.00 10/13/16 10:39 64 16 199/84 (122) 98 Nasal Cannula 2.00 10/13/16 10:06 98.4 65 15 196/77 (116) 98 Physical Exam GENERAL: Well-nourished, well-developed pleasant elderly female patient in [facility]. SKIN: Warm and dry. No rash. HEAD: Normocephalic. Atraumatic. EYES: Pupils equal and round. No scleral icterus. No injection or drainage. ENT: No nasal bleeding or discharge. Mucous membranes pink and moist. NECK: Supple. Trachea midline. CARDIOVASCULAR: Regular rate and rhythm. S1, S2 noted. No murmur appreciated. RESPIRATORY: No accessory muscle use. Poor air movement throughout, bibasilar crackles, and faint expiratory wheezing. GASTROINTESTINAL: Abdomen soft, non-tender, nondistended. Normoactive bowel sounds x4. MUSCULOSKELETAL: No obvious deformities. Extremities without clubbing, cyanosis , or edema. Calves nontender bilaterally. NEUROLOGICAL: Awake and alert. No obvious cranial nerve deficits. Motor grossly within normal limits. Moves all extremities spontaneously. Normal speech. PSYCHIATRIC: Appropriate mood and affect; insight and judgment normal. Laboratory Laboratory Tests Test 10/13/16 10:32 White Blood Count 6.0 Red Blood Count 3.07 Hemoglobin 9.9 Hematocrit 31.3 Mean Corpuscular Volume 101.9 Mean Corpuscular Hemoglobin 32.3 Mean Corpuscular Hemoglobin Concent 31.7 Red Cell Distribution Width 15.4 Platelet Count 167 Mean Platelet Volume 7.5 Neutrophils (%) (Auto) 77.4 Lymphocytes (%) (Auto) 10.6 Monocytes (%) (Auto) 10.1 Eosinophils (%) (Auto) 0.9 Basophils (%) (Auto) 1.0 Neutrophils # (Auto) 4.6 Lymphocytes # (Auto) 0.6 Monocytes # (Auto) 0.6 Eosinophils # (Auto) 0.1 Basophils # (Auto) 0.1 CBC Comment DIFF FINAL Differential Comment Blood Urea Nitrogen 65 Creatinine 3.76 Random Glucose 105 Calcium Level 8.6 Sodium Level 145 Potassium Level 4.3 Chloride Level 115 Carbon Dioxide Level 17.3 Anion Gap 13 Estimat Glomerular Filtration Rate 11 Total Creatine Kinase 24 Result Diagram: 10/13/16 1032 10/13/16 1032 Imaging Last Impressions Chest X-Ray 10/13/16 1026 Signed Impressions: Service Date/Time: Thursday, October 13, 2016 10:33 - CONCLUSION: New right upper lobe parahilar airspace disease infiltrate Uri Ramirez MD Caprini VTE Risk Assessment Caprini VTE Risk Assessment: Mod/High Risk (score >= 2) Caprini Risk Assessment Model Point Value = 1 Point Value = 2 Point Value = 3 Point Value = 5 Age 41-60 Minor surgery BMI > 25 kg/m2 Swollen legs Varicose veins or History of unexplained or recurrent spontaneous Oral contraceptives or hormone replacement Sepsis (< 1 month) Serious lung disease, including pneumonia (< 1 month) Abnormal pulmonary function Acute myocardial infarction Congestive heart failure (< 1 month) History of inflammatory bowel disease Medical patient at bed rest Age 61-74 Arthroscopic surgery Major open surgery (> 45 min) Laparoscopic surgery (> 45 min) Malignancy Confined to bed (> 72 hours) Immobilizing plaster cast Central venous access Age >= 75 History of VTE Family history of VTE Factor V Leiden Prothrombin [id number] Lupus anticoagulant Anticardiolipin antibodies Elevated serum homocysteine Heparin-induced thrombocytopenia Other congenital or acquired thrombophilia Stroke (< 1 month) Elective arthroplasty Hip, pelvis, or leg fracture Acute spinal cord injury (< 1 month) Prophylaxis Regimen Total Risk Factor Score Risk Level Prophylaxis Regimen 0-1 Low Early ambulation 2 Moderate Order ONE of the following: *Sequential Compression Device (SCD) *Heparin 5000 units SQ BID 3-4 Higher Order ONE of the following medications: *Heparin 5000 units SQ TID *Enoxaparin/Lovenox 40 mg SQ daily (WT < 150 kg, CrCl > 30 mL/min) *Enoxaparin/Lovenox 30 mg SQ daily (WT < 150 kg, CrCl > 10-29 mL/min) *Enoxaparin/Lovenox 30 mg SQ BID (WT < 150 kg, CrCl > 30 mL/min) AND/OR *Sequential Compression Device (SCD) 5 or more Highest Order ONE of the following medications: *Heparin 5000 units SQ TID (Preferred with Epidurals) *Enoxaparin/Lovenox 40 mg SQ daily (WT < 150 kg, CrCl > 30 mL/min) *Enoxaparin/Lovenox 30 mg SQ daily (WT < 150 kg, CrCl > 10-29 mL/min) *Enoxaparin/Lovenox 30 mg SQ BID (WT < 150 kg, CrCl > 30 mL/min) AND *Sequential Compression Device (SCD) Assessment and Plan Problem List: (1) Fluid overload ICD Code: E87.70 - Fluid overload, unspecified (2) Dyspnea ICD Code: R06.00 - Dyspnea, unspecified Status: Acute (3) COPD exacerbation ICD Code: J44.1 - Chronic obstructive pulmonary disease with (acute) exacerbation Status: Acute (4) Accelerated hypertension ICD Code: I10 - Essential (primary) hypertension Status: Acute (5) End stage renal disease on dialysis ICD Code: N18.6 - End stage renal disease; Z99.2 - Dependence on renal dialysis Status: Chronic Assessment and Plan 81-year-old female with history of Lung Cancer, HTN, HLD, DM, COPD O2 dependent , CHF, ESRD on HD, GERD, presents with a 2 day history of weakness and shortness of breath. Dyspnea: suspect multifactorial with fluid overload from missing dialysis in combination with mild COPD exacerbation. CXR images reviewed, shows new RUL parahilar airspace disease infiltrate, however upon review of recent Chest CT ( see oncologist progress note), also shows upper lobe changes likely secondary to previous radiation. No signs of pneumonia, afebrile, no leukocytosis. See treatment below. ESRD on HD with Acute Fluid Overload: suspect secondary to missing dialysis. Echo 01/29/16 shows normal systolic function, EF 60%, trace AR, mild MR, mild- mod TR; small pericardial effusion. S/p IV Lasix 40mg x1 in the ED. Consult nephrology to resume dialysis. Mild COPD Exacerbation, O2 Dependent: +wheezing on exam. Continue albuterol nebs q4h while awake and q2h prn. O2 as needed. Atypical Chest Pains: suspect secondary to fluid overload, possible GI component. Initial EKG reviewed, no acute ischemic changes. Check cardiac enzymes. IV Morphine prn. Continue patient's carafate and PPI. Accelerated Hypertension: BP 207/79. Suspect secondary to missing dialysis and missing antihypertensive medications this morning. Restart home medications including clonidine, metoprolol, nifedipine, losartan. Monitor BP, adjust antihypertensives as needed. BP improving. Lung Cancer: follows with Dr. Gonsalez and Dr. Giron. Continue outpatient follow up. Diabetes Mellitus: chronic, stable. Monitor Accu-checks and cover with SSI. Check HgbA1c. Hyperlipidemia: chronic, stable, continue statin. Anemia: chronic, stable, continue home iron supplement ferrous sulfate 325mg bid. All other medical conditions stable, continue home medications as appropriate. DVT Prophylaxis: Heparin SQ This note was transcribed by regine [Parag Cardenas]. I, Dr. Anastacia Mckenzie personally performed the history, physical exam, and medical decision making; and confirmed the accuracy of the information in the transcribed note. Authenticated by Dr. Anastacia Mckenzie on 10/13/16 at 13:15. Code Status DNR Discussed Condition With Patient, ER Physician Certification 2 Midnight Certification Type: Admission for Inpatient Services Order for Inpatient Services The services are ordered in accordance with Medicare regulations or non- Medicare payer requirements, as applicable. In the case of services not specified as inpatient-only, they are appropriately provided as inpatient services in accordance with the 2-midnight benchmark. Estimated LOS (days): 3 days is the estimated time the patient will need to remain in the hospital, assuming treatment plan goals are met and no additional complications. Post-Hospital Plan: Not yet determined Problem Qualifiers (1) Dyspnea: Qualified Codes: R06.00 - Dyspnea, unspecified Theresa Tuttle PA-C Oct 13, 2016 13:03 Anastacia Mckenzie MD Oct 13, 2016 13:22
[2016-10-13] MEDS ORDERED: GLUCAGON 1 MG/ML VIAL OTHER PRN (13:45)
[2016-10-13] MEDS ORDERED: DEXTROSE 50% IN WATER 50 ML VIAL(D50) IV PRN (13:45)
[2016-10-13] MEDS: LOSARTAN 50 MG TAB PO SCH (15:16)
[2016-10-13] MEDS: cloNIDine HCL 0.2 MG TAB PO SCH ×2 (15:16→22:31)
[2016-10-13] MEDS: RESP: ALBUTEROL 2.5 MG/3 ML NEB (SCH) NEB ×2 (16:00→19:54)
--- NOTE | 2016-10-13 16:46 | PD.CONS ---
[facility] Service Nephrology Consult Requested By Reason for Consult ESRD on HD Primary Care Physician Terrell Olmstead MD History of Present Illness This is an 81 y/o female dialysis patient. She normally has treatment on TTS, however she was traveling therefore missed treatment Wednesday. Yesterday she did not feel well, reporting shortness of breath. This morning she had substernal chest pain and severe shortness of breath not relieved by nebulizers. PMH listed below includes lung cancer s/p 15 radiation treatments, HTN, hypothyroidism, anemia, hyperlipidemia, COPD, CHF with EF 60%. She is seen during dialysis today. Was given lasix IV and NTG paste and reports symptom relief. She is a DNR this admission, we were consulted for dialysis management. She also has a RUL pneumonia, has been started on antibiotics. (Milana Sandoval) Review of Systems Constitutional: COMPLAINS OF: Fatigue, DENIES: Fever, Weight gain Respiratory: COMPLAINS OF: Sputum production, Shortness of breath, DENIES: Wheezing, Hemoptysis Cardiovascular: COMPLAINS OF: Chest pain, Dyspnea on Exertion, Lower Extremity Edema Gastrointestinal: DENIES: Abdominal pain (Milana Sandoval) Past Family Social History Allergies: Coded Allergies: diatrizoate meglumine (Unverified Allergy, Severe, Hives, 09/29/16) gadobenic acid (Unverified Allergy, Severe, Hives, 09/29/16) gadodiamide (Unverified Allergy, Severe, Hives, 09/29/16) gadoteridol (Unverified Allergy, Severe, Hives, 09/29/16) iodixanol (Unverified Allergy, Severe, Hives, 09/29/16) iohexol (Unverified Allergy, Severe, Hives, 09/29/16) metronidazole (Unverified Allergy, Severe, DIFFICULTY BREATHING, EXTREME NAUSEA, VOMITING, 09/29/16) cholestyramine (Unverified Adverse Reaction, Intermediate, STOMACH UPSET, 09/29/16) codeine (Unverified Adverse Reaction, Intermediate, UPSET STOMACH, 09/29/16 ) colesevelam (Unverified Adverse Reaction, Intermediate, STOMACH UPSET, ) gemfibrozil (Unverified Adverse Reaction, Intermediate, STOMACH UPSET, ) levofloxacin (Unverified Adverse Reaction, Intermediate, Nausea/Vomiting, 09/29/16) patient said it gave her extreme anxiety also. lorazepam (Unverified Adverse Reaction, Intermediate, STOMACH UPSET, ) lovastatin (Unverified Adverse Reaction, Intermediate, STOMACH UPSET, 09/29) propoxyphene (Unverified Adverse Reaction, Intermediate, UPSET STOMACH, ) Past Medical History End-stage renal disease on HD Lung Cancer Hypertension Dyslipidemia Diabetes type 2 COPD CHF, EF 60% from Jan 2016 GERD Depression Hypothyroidism anemia Past Surgical History cholecystectomy Left wrist surgery Colon resection and excellent hernia repair Lysis of adhesions AVF left arm Reported Medications Morphine ER (Morphine Sulfate) 15 Mg Tab 15 Mg PO Q8H PRN Nifedipine ER (Nifedipine) 90 Mg Tab 90 Mg PO DAILY Omeprazole 40 Mg Cap 40 Mg PO DAILY Sucralfate 1 Gm Tab 1 Gm PO TID on empty stomach Losartan (Losartan Potassium) 100 Mg Tab 100 Mg PO DAILY Levothyroxine (Levothyroxine Sodium) 100 Mcg Tab 100 Mcg PO DAILY Flonase Nasal [place] (Fluticasone Nasal [place]) 50 Mcg/Act [place] 2 [place] EACH NARE DAILY PRN Centrum Silver Adult 50+ (Multiple Vitamins W/ Minerals) 1 Tab Tab 1 Tab PO AC LUNCH Senna S (Sennosides-Docusate Sodium) 8.6-50 Mg Tab 4 Tab PO HS Lutein 20 Mg Cap 20 Mg PO DAILY Ferrous Sulfate 325 Mg Tab 325 Mg PO BID Fluoxetine (Fluoxetine HCl) 20 Mg Tab 20 Mg PO HS Fenofibrate 54 Mg Tab 54 Mg PO AC LUNCH Catapres (Clonidine) 0.2 Mg Tab 0.2 Mg PO Q8HR Atorvastatin (Atorvastatin Calcium) 10 Mg Tab 10 Mg PO HS Renvela 1600 mg TID AC Calcitriol 0.25 Mcg Cap 0.25 Mcg PO DAILY Aspirin Adult Low Strength (Aspirin) 81 Mg Tabdr 81 Mg PO DAILY Ventolin Hfa 18 GM Inh (Albuterol Sulfate) 90 Mcg/Act Aer 2 Puff INH Q4H PRN Metoprolol Succinate ER 24 HR (Metoprolol Succinate) 25 Mg Tab 25 Mg PO DAILY Active Ordered Medications Current Medications Medications (Trade) Dose Ordered Sig/Raheel Route Start Time Stop Time Status Last Admin (NS Flush) 2 ml UNSCH PRN IV FLUSH 10/13/16 12:00 (NS Flush) 2 ml BID IV FLUSH 10/13/16 21:00 (Tylenol) 650 mg Q4H PRN PO 10/13/16 12:00 (Zofran Inj) 4 mg Q6H PRN IVP 10/13/16 12:00 (Narcan Inj) 0.4 mg UNSCH PRN IV 10/13/16 12:00 (Milk Of Magnesia Liq) 30 ml Q12H PRN PO 10/13/16 12:00 (Senokot) 17.2 mg Q12H PRN PO 10/13/16 12:00 (Dulcolax Supp) 10 mg DAILY PRN RECTAL 10/13/16 12:00 (Lactulose Liq) 30 ml DAILY PRN PO 10/13/16 12:00 (Albuterol Neb) 2.5 mg Q2HR NEB PRN NEB 10/13/16 12:00 10/13/16 12:17 (Catapres) 0.2 mg Q8HR PO 10/13/16 14:00 10/13/16 15:16 (Cozaar) 100 mg DAILY PO 10/13/16 13:00 10/13/16 15:16 (Toprol Xl) 25 mg DAILY PO 10/14/16 09:00 (Procardia Xl) 90 mg DAILY PO 10/13/16 12:00 10/13/16 12:38 (Catapres) 0.1 mg Q6H PRN PO 10/13/16 12:00 (Albuterol Neb) 2.5 mg Q4HR WHILE AWAKE NEB NEB 10/13/16 16:00 (Ecotrin Ec) 81 mg DAILY PO 10/14/16 09:00 (Lipitor) 10 mg HS PO 10/13/16 21:00 (Rocaltrol) 0.25 mcg DAILY PO 10/14/16 09:00 (Ferrous Sulfate) 325 mg BID PO 10/13/16 21:00 (PROzac) 20 mg HS PO 10/13/16 21:00 (Synthroid) 100 mcg DAILY@0600 PO 10/14/16 06:00 (Carafate) 1 gm TID PO 10/13/16 18:00 (Theragran M Tab) 1 tab AC LUNCH PO 10/14/16 11:00 (Protonix) 40 mg DAILY PO 10/14/16 09:00 (Heparin Inj) 5,000 units Q12H SQ 10/13/16 18:00 (D50w (Vial) Inj) 50 ml UNSCH PRN IV 10/13/16 13:45 (Glucagon Inj) 1 mg UNSCH PRN OTHER 10/13/16 13:45 (NovoLOG SUPPLEMENTAL SCALE) 1 ACHS SLIDING SCALE SQ 10/13/16 16:00 Family History no hx of renal impairment Social History , lives locally with spouse former smoker, denies ETOH ambulatory oxygen PRN DNR status (Milana Sandoval) Physical Exam Vital Signs Vital Signs Date Time Temp Pulse Resp B/P (MAP) Pulse Ox O2 Delivery O2 Flow Rate FiO2 10/13/16 14:59 64 16 192/84 (120) 96 Room Air 3.00 10/13/16 13:26 70 16 173/70 (104) 97 Nasal Cannula 3.00 10/13/16 12:17 97 Nasal Cannula 2.00 10/13/16 11:51 65 16 207/79 (121) 97 Nasal Cannula 3.00 10/13/16 10:39 98 Nasal Cannula 3.00 10/13/16 10:39 64 98 Nasal Cannula 3.00 10/13/16 10:39 64 16 199/84 (122) 98 Nasal Cannula 2.00 10/13/16 10:06 98.4 65 15 196/77 (116) 98 Physical Exam Elderly female, appears chronically ill awake/alert and oriented, no neuro deficit S1/S2, RRR no murmurs lungs with rales throughout, no wheezing or coughing during exam abdomen round, soft, non tender ext: no edema; LUE AVF accessed during dialysis. Laboratory Laboratory Tests Test 10/13/16 10:32 White Blood Count 6.0 Red Blood Count 3.07 Hemoglobin 9.9 Hematocrit 31.3 Mean Corpuscular Volume 101.9 Mean Corpuscular Hemoglobin 32.3 Mean Corpuscular Hemoglobin Concent 31.7 Red Cell Distribution Width 15.4 Platelet Count 167 Mean Platelet Volume 7.5 Neutrophils (%) (Auto) 77.4 Lymphocytes (%) (Auto) 10.6 Monocytes (%) (Auto) 10.1 Eosinophils (%) (Auto) 0.9 Basophils (%) (Auto) 1.0 Neutrophils # (Auto) 4.6 Lymphocytes # (Auto) 0.6 Monocytes # (Auto) 0.6 Eosinophils # (Auto) 0.1 Basophils # (Auto) 0.1 CBC Comment DIFF FINAL Differential Comment Blood Urea Nitrogen 65 Creatinine 3.76 Random Glucose 105 Calcium Level 8.6 Sodium Level 145 Potassium Level 4.3 Chloride Level 115 Carbon Dioxide Level 17.3 Anion Gap 13 Estimat Glomerular Filtration Rate 11 Total Creatine Kinase 24 Troponin I 0.03 B-Type Natriuretic Peptide 2926 Date/Time Source Procedure Growth Status 10/13/16 12:00 Blood Peripheral Aerobic Blood Culture Pending Received 10/13/16 12:00 Blood Peripheral Anaerobic Blood Culture Pending Received (Milana Sandoval) Result Diagram: 10/13/16 1032 10/13/16 1032 Imaging Last Impressions Chest X-Ray 10/13/16 1026 Signed Impressions: Service Date/Time: Thursday, October 13, 2016 10:33 - CONCLUSION: New right upper lobe parahilar airspace disease infiltrate Uri Ramirez MD (Milana Sandoval) Assessment and Plan Problem List: (1) End stage renal disease on dialysis ICD Codes: N18.6 - End stage renal disease; Z99.2 - Dependence on renal dialysis Status: Chronic Plan: resume TTS hemodialysis, missed treatment Wednesday seen during HD today on a 1K, 350 BFR, increase goal to 4L no acute electrolyte disorders monitor fluid status metabolic acidosis should improve with dialysis home medications were reviewed (2) PNA (pneumonia) ICD Codes: J18.9 - Pneumonia, unspecified organism Status: Acute Plan: she has productive cough, shortness of breath CXR reviewed, may have radiation changes on rocephin and zithromax with oxygen therapy (3) HTN (hypertension) ICD Codes: I10 - Essential (primary) hypertension Status: Acute Plan: monitor blood pressure home medications were resumed (4) Anemia ICD Codes: D64.9 - Anemia, unspecified Status: Acute Plan: on Epogen with dialysis check iron profile (5) Metabolic bone disease ICD Codes: E88.9 - Metabolic disorder, unspecified; M90.80 - Osteopathy in diseases classified elsewhere, unspecified site Status: Acute Plan: resume Renvela, she takes 1600 mg with meals (Jaime,Milana B. INSURANCE PLAN SPECIALIST) Assessment and Plan patient was seen and examined. Agree with above assessment and plan. Dialysis with fluid removal today. Missed dialysis on Wednesday. Patient is noted to have Sucralfate in her med profile. This should not be continued indefinitely because of risk fo Aluminum toxicity in dialysis patients. (Gt Trejo MD) Problem Qualifiers (1) PNA (pneumonia): Qualified Codes: J18.1 - Lobar pneumonia, unspecified organism Milana Sandoval INSURANCE PLAN SPECIALIST Oct 13, 2016 16:46 Gt Trejo MD Oct 13, 2016 20:27
[2016-10-13] MEDS ORDERED: SODIUM CHLOR 0.9% 1000 ML INJ 1,000 ML IV PRN (16:48)
[2016-10-13] MEDS ORDERED: SODIUM CHLOR 0.9% 1000 ML INJ 1,000 ML OTHER PRN ×2 (16:48→18:00)
[2016-10-13] MEDS ORDERED: MANNITOL 12.5 GM/50 ML VIAL IV PRN (17:00)
[2016-10-13] MEDS ORDERED: NITROGLYCERIN 0.4 MG SL 25 TABS/BTL SL PRN (17:00)
[2016-10-13] MEDS ORDERED: HEPARIN SODIUM - IV 10,000 UNITS/10 ML VIAL PRN (17:00)
[2016-10-13] MEDS ORDERED: GENTAMICIN SULFATE (DIALYSIS USE ONLY) 20 MG/2 ML VIAL IV PRN (17:00)
[2016-10-13] MEDS ORDERED: GELATIN 12 MM/7 MM FOAM TOP PRN (17:00)
[2016-10-13] MEDS ORDERED: ALBUMIN HUMAN 25% 25 GM/100 ML BAGP IV PRN (17:00)
[2016-10-13] MEDS ORDERED: SEVELAMER CARBONATE 800 MG TAB PO SCH (17:00)
[2016-10-13] MEDS ORDERED: ONDANSETRON HCL 4 MG/2 ML VIAL IV PRN (17:00)
[2016-10-13] MEDS ORDERED: HEPARIN SODIUM - IV 10,000 UNITS/10 ML VIAL IVF PRN (17:00)
[2016-10-13] MEDS ORDERED: diphenhydrAMINE HCL 25 MG CAP PO PRN (17:00)
[2016-10-13] MEDS ORDERED: EPOETIN ALFA 10,000 UNITS/ML VIAL IV PRN (17:00)
[2016-10-13] MEDS ORDERED: HEPARIN SODIUM - SQ 10,000 UNITS/ML VIAL SQ SCH (18:00)
[2016-10-13] MEDS ORDERED: SUCRALFATE 1 GM TAB PO SCH (18:00)
[2016-10-13] MEDS ORDERED: ATORVASTATIN 10 MG TAB PO SCH (21:00)
[2016-10-13] MEDS ORDERED: FLUoxetine HCL 20 MG CAP PO SCH (21:00)
[2016-10-13] MEDS: INSULIN ASPART SUPPLEMENTAL SCALE SQ SCH (21:00)
[2016-10-13] MEDS ORDERED: SODIUM CHLORIDE 0.9% FLUSH 10 ML FLUSH IV FLUSH SCH (21:00)
[2016-10-13] MEDS: FERROUS SULFATE 325 MG (65 MG ELEMENTAL IRON) TAB PO SCH (22:31)
[2016-10-14 04:00] VITALS: BP 142/79; PULSE 82; RESP 20; TEMP 98.6; O2SAT 96
[2016-10-14] MEDS ORDERED: LEVOTHYROXINE SODIUM 100 MCG TAB PO SCH (06:00)
[2016-10-14] MEDS: cloNIDine HCL 0.2 MG TAB PO SCH (06:05)
[2016-10-14 06:57] LABS: AUTOMATED NEUTROPHIL # 2.5 TH/MM3 (1.8-7.7); BASOPHIL # 0.1 TH/MM3 (0-0.2); BASOPHIL % 1.4 % (0.0-2.0); EOSINOPHIL # 0.1 TH/MM3 (0-0.4); EOSINOPHIL % 2.6 % (0.0-4.0); HEMATOCRIT 25.5 % (35.0-46.0); HEMO FLAGS DIFF FINAL; LYMPH % 21.3 % (9.0-44.0); LYMPHOCYTE # 0.9 TH/MM3 (1.0-4.8); MEAN CORPUSCULAR HEMOGLOBIN 33.8 PG (27.0-34.0); MEAN CORPUSCULAR HGB CONC 34.1 % (32.0-36.0); NEUT % 59.7 % (16.0-70.0); PLATELET COUNT 137 TH/MM3 (150-450); RED BLOOD COUNT 2.58 MIL/MM3 (4.00-5.30); RED CELL DISTRIBUTION WIDTH 15.2 % (11.6-17.2); WHITE BLOOD COUNT 4.2 TH/MM3 (4.0-11.0)
[2016-10-14 06:58] LABS: ANION GAP 9 MEQ/L (5-15); BICARBONATE 30.5 MEQ/L (21.0-32.0); BLOOD UREA NITROGEN 33 MG/DL (7-18); CHLORIDE 105 MEQ/L (98-107); GLOMERULAR FILTRATION RATE 19 ML/MIN (>89); SODIUM (NA) 144 MEQ/L (136-145); TRANSFERRIN IRON PROFILE 132 MG/DL (200-360)
[2016-10-14] MEDS: INSULIN ASPART SUPPLEMENTAL SCALE SQ SCH (07:00)
[2016-10-14 08:00] VITALS: BP 179/76; PULSE 60; RESP 18; TEMP 98.7; O2SAT 97
[2016-10-14 08:07] VITALS: O2SAT 98
[2016-10-14] MEDS: RESP: ALBUTEROL 2.5 MG/3 ML NEB (SCH) NEB ×2 (08:07→12:09)
[2016-10-14] MEDS ORDERED: METOPROLOL SUCCINATE 25 MG EXTENDED RELEASE TAB PO SCH (09:00)
[2016-10-14] MEDS ORDERED: ASPIRIN EC 81 MG TABEC PO SCH (09:00)
[2016-10-14] MEDS ORDERED: NON-FORMULARY DRUG (Lutein 20 MG) PO SCH (09:00)
[2016-10-14] MEDS ORDERED: PANTOPRAZOLE SOD 40 MG DELAYED RELEASE TAB PO SCH (09:00)
[2016-10-14] MEDS: NIFEdipine 90 MG SUSTAINED RELEASE TAB PO SCH (09:00)
[2016-10-14] MEDS ORDERED: CALCITRIOL 0.25 MCG CAP PO SCH (09:00)
[2016-10-14] MEDS: LOSARTAN 50 MG TAB PO SCH (09:43)
[2016-10-14] MEDS: FERROUS SULFATE 325 MG (65 MG ELEMENTAL IRON) TAB PO SCH (09:43)
[2016-10-14] MEDS ORDERED: MULTIVITAMINS/MINERALS THERAPEUTIC TAB PO SCH (11:00)
--- NOTE | 2016-10-14 11:49 | HHI.NPPN ---
Subjective General Problems: Anemia Renal Failure: Chronic, End Stage Renal Disease Interval History She looks and feels much better. Requesting discharge. (Milana Sandoval) Review of Systems Respiratory Lungs: SOB Respiratory Remarks at baseline (Milana Sandoval) Objective Data Data Vital Signs Date Time Temp Pulse Resp B/P (MAP) Pulse Ox O2 Delivery O2 Flow Rate FiO2 10/14/16 08:07 98 Nasal Cannula 2.00 10/14/16 08:00 98.7 60 18 179/76 (110) 97 10/14/16 04:00 98.6 82 20 142/79 (100) 96 10/13/16 20:00 98.7 70 20 141/63 (89) 96 10/13/16 19:54 95 Nasal Cannula 2.00 10/13/16 16:43 97.7 67 18 189/91 (123) 94 10/13/16 14:59 64 16 192/84 (120) 96 Room Air 3.00 10/13/16 13:26 70 16 173/70 (104) 97 Nasal Cannula 3.00 10/13/16 12:17 97 Nasal Cannula 2.00 10/13/16 11:51 65 16 207/79 (121) 97 Nasal Cannula 3.00 (iMlana Sandoval) -: 10/14/16 0515 10/14/16 0515 Microbiology 10/13/16 Aerobic Blood Culture - Preliminary, Resulted Gram Positive Cocci 10/13/16 Anaerobic Blood Culture - Preliminary, Resulted NO GROWTH IN 1 DAY Imaging Last 72 hours Impressions Chest X-Ray 10/13/16 1026 Signed Impressions: Service Date/Time: Thursday, October 13, 2016 10:33 - CONCLUSION: New right upper lobe parahilar airspace disease infiltrate Uri Ramirez MD (Milana Sandoval) Physical Exam General Appearance: Well Developed, Comfortable (Milana Sandoval) Eyes Eye Exam: Pupils Equal (Milana Sandoval) Throat Throat Exam: Oral Mucosa Gordon & Moist (Milana Sandoval) Pulmonary Resp Exam: Breath Sounds Equal, No Distress, Crackles (Milana Sandoval) Cardiology CV Exam: Regular, Normal Sinus Rhythm (Milana Sandoval) Gastrointestinal/Abdomen GI Exam: Soft, Non-Tender (Milana Sandoval) Musculoskeletal MS Exam: Normal Gait, Normal Tone, Good Strength (Milana Sandoval) Integumentary Skin Exam: Clear, Warm, Dry, Intact (Milana Sandoval) Extremeties Extremities Exam: No Edema, Pedal Pulses Palpable (Milana Sandoval) Neurologic Neuro Exam: Alert, Awake, Oriented, Speech Clear, Moving All Extremities (Milana Sandoval) Psychiatric Psych Exam: Appropriate Responses (Milana Sandoval) Assessment/Plan Discussed Condition With: Patient, Spouse Assessment Summary: Anemia of CKD, End Stage Renal Disease Problem List: (1) End stage renal disease on dialysis ICD Codes: N18.6 - End stage renal disease; Z99.2 - Dependence on renal dialysis Status: Chronic Plan: she had 2L UF with HD yesterday okay to resume TTS hemodialysis, outpatient if discharged no acute electrolyte disorders stable from renal perspective (2) PNA (pneumonia) ICD Codes: J18.9 - Pneumonia, unspecified organism Status: Acute Plan: she is afebrile without leukocytosis it is possible she has radiation pneumonitis not currently on antibiotics (3) HTN (hypertension) ICD Codes: I10 - Essential (primary) hypertension Status: Acute Plan: monitor blood pressure home medications were resumed (4) Anemia ICD Codes: D64.9 - Anemia, unspecified Status: Acute Plan: on Epogen with dialysis on oral iron (5) Metabolic bone disease ICD Codes: E88.9 - Metabolic disorder, unspecified; M90.80 - Osteopathy in diseases classified elsewhere, unspecified site Status: Acute Plan: resume Renvela, she takes 1600 mg with meals Plan she is cleared for discharge from renal perspective her chair time is 1000 am tomorrow will need to be discharged today or early AM to make her appointment (Milana Sandoval) Plan patient was seen and examined. I agree with above assessment and plan. (Gt Trejo MD) Problem Qualifiers (1) PNA (pneumonia): Qualified Codes: J18.1 - Lobar pneumonia, unspecified organism Milana Sandoval Oct 14, 2016 11:49 Gt Trejo MD Oct 14, 2016 21:56
--- NOTE | 2016-10-14 12:08 | HHI.DCPOC ---
Discharge Care Plan Diagnosis: (1) End stage renal disease on dialysis (2) Fluid overload (3) Pneumonitis (4) Accelerated hypertension (5) COPD exacerbation (6) Dyspnea Goals to Promote Your Health * To prevent worsening of your condition and complications * To maintain your health at the optimal level Directions to Meet Your Goals Take your medications as prescribed Follow your dietary instruction Follow activity as directed Keep your appointments as scheduled Take your immunizations and boosters as scheduled If your symptoms worsen call your PCP, if no PCP go to Urgent Care Center or Emergency Room Smoking is Dangerous to Your Health. Avoid second hand smoke Call the 24-hour hour crisis hotline for domestic abuse at Anastacia Mckenzie MD Oct 14, 2016 12:08
--- NOTE | 2016-10-14 12:12 | HHI.PR ---
Subjective Remarks Patient reports she is feeling great and back to her normal baseline. She is requesting to be discharged home. at bedside. Discussed the need to follow-up outpatient with oncology and pulmonology. Objective Vitals Vital Signs Date Time Temp Pulse Resp B/P (MAP) Pulse Ox O2 Delivery O2 Flow Rate FiO2 10/14/16 08:07 98 Nasal Cannula 2.00 10/14/16 08:00 98.7 60 18 179/76 (110) 97 10/14/16 04:00 98.6 82 20 142/79 (100) 96 10/13/16 20:00 98.7 70 20 141/63 (89) 96 10/13/16 19:54 95 Nasal Cannula 2.00 10/13/16 16:43 97.7 67 18 189/91 (123) 94 10/13/16 14:59 64 16 192/84 (120) 96 Room Air 3.00 10/13/16 13:26 70 16 173/70 (104) 97 Nasal Cannula 3.00 10/13/16 12:17 97 Nasal Cannula 2.00 I/O 10/13/16 10/13/16 10/13/16 10/14/16 10/14/16 10/14/16 07:00 15:00 23:00 07:00 15:00 23:00 Intake Total 350 ml Output Total 2300 ml Balance 350 ml -2300 ml Intake IV Total 350 ml Output Urine Total 300 ml Hemodialysis 2000 ml Result Diagram: 10/14/16 0515 10/14/16 0515 Imaging Last Impressions Chest X-Ray 10/13/16 1026 Signed Impressions: Service Date/Time: Thursday, October 13, 2016 10:33 - CONCLUSION: New right upper lobe parahilar airspace disease infiltrate Uri Ramirez MD Objective Remarks GENERAL: This is a well-nourished, well-developed patient, in no apparent distress. CARDIOVASCULAR: Normal rate and regular rhythm without murmurs, gallops, or rubs. RESPIRATORY: Poor air movement throughout. Faint end expiratory wheezing. GASTROINTESTINAL: Abdomen soft, non-tender, non-distended. Normal active bowel sounds MUSCULOSKELETAL: Extremities without cyanosis, or edema. NEURO: Alert & Oriented x4 to person, place, time, situation. Moves all ext x4 PSYCH: Appropriate mood and affect. A/P Problem List: (1) Fluid overload ICD Code: E87.70 - Fluid overload, unspecified (2) Dyspnea ICD Code: R06.00 - Dyspnea, unspecified Status: Acute (3) COPD exacerbation ICD Code: J44.1 - Chronic obstructive pulmonary disease with (acute) exacerbation Status: Acute (4) Accelerated hypertension ICD Code: I10 - Essential (primary) hypertension Status: Acute (5) End stage renal disease on dialysis ICD Code: N18.6 - End stage renal disease; Z99.2 - Dependence on renal dialysis Status: Chronic Assessment and Plan 81-year-old female with history of Lung Cancer, HTN, HLD, DM, COPD O2 dependent , CHF, ESRD on HD, GERD, presents with a 2 day history of weakness and shortness of breath. Dyspnea: suspect multifactorial with fluid overload from missing dialysis in combination with mild COPD exacerbation. CXR images reviewed, shows new RUL parahilar airspace disease infiltrate, however upon review of recent Chest CT ( see oncologist progress note), also shows upper lobe changes likely secondary to previous radiation. No signs of pneumonia, afebrile, no leukocytosis. - Patient had dialysis and her symptoms completely resolved. Suspect this was mostly due to fluid overload. She is cleared to be discharged home. ESRD on HD with Acute Fluid Overload: suspect secondary to missing dialysis. Echo 01/29/16 shows normal systolic function, EF 60%, trace AR, mild MR, mild- mod TR; small pericardial effusion. S/p IV Lasix 40mg x1 in the ED. nephrology followed. She had dialysis. She is scheduled to have dialysis again tomorrow outpatient. Mild COPD Exacerbation, O2 Dependent: Continue breathing treatments and oxygen therapy at home. Atypical Chest Pains: suspect secondary to fluid overload, possible GI component. Initial EKG reviewed, no acute ischemic changes. Cardiac enzymes negative. Symptoms completely resolved. Continue patient's carafate and PPI. Accelerated Hypertension: BP 207/79. Suspect secondary to missing dialysis and missing antihypertensive medications this morning. Home medications restarted including clonidine, metoprolol, nifedipine, losartan.- Blood pressure much improved 1/4 blood cultures positive with staph coagulase-negative. Most likely contaminant. No other indications or signs of infectious process. I discussed this with the patient and talked about signs of infections and when to seek medical care. Cultures will be followed. Lung Cancer: follows with Dr. Gonsalez and Dr. Giron. Continue outpatient follow up. Patient quickly improved and can be discharged home in good condition Activity: Regular as tolerated Diet: Renal diet Follow-up: With PCP, pulmonology, and nephrology Meds: Per med rec Discharge Planning Discharge home Problem Qualifiers (1) Dyspnea: Qualified Codes: R06.00 - Dyspnea, unspecified Anastacia Mckenzie MD Oct 14, 2016 12:12
--- NOTE | 2016-10-14 17:17 | EKG ---
Date Performed: 10/13/2016 Time Performed: 10:20:02 PTAGE: 81 years EKG: Sinus rhythm POSSIBLE LEFT ATRIAL ENLARGEMENT POSSIBLE RIGHT VENTRICULAR CONDUCTION DELAY Since previous tracing, no significant change noted BORDERLINE ECG PREVIOUS TRACING : 07/08/2016 23.00.08 DOCTOR: Homa Mcfadden Interpretating Date/Time 10/14/2016 17:12:15
== END 2016-10-14 12:38 | disposition home or self-care (01) | DRG 640 ==
LOC: NEPC 10:05 → NEDA 11:50 → N05B 15:28
PROVIDERS: ADMIT Family Medicine; ATTEND Family Medicine
PROC: 5A1D00Z (ICD-10-PCS; principal; 2016-10-13)
DX: E87.79 Other fluid overload (principal); N18.6 End stage renal disease; E87.2 Acidosis; E11.22 Type 2 diabetes mellitus with diabetic chronic kidney disease; I12.0 Hypertensive chronic kidney disease with stage 5 chronic kidney disease or end stage renal disease; J44.1 Chronic obstructive pulmonary disease with (acute) exacerbation; K21.9 Gastro-esophageal reflux disease without esophagitis; E78.5 Hyperlipidemia, unspecified; F32.9 Major depressive disorder, single episode, unspecified; E03.9 Hypothyroidism, unspecified; Z66 Do not resuscitate; D63.1 Anemia in chronic kidney disease; Z99.2 Dependence on renal dialysis; Z79.84 Long term (current) use of oral hypoglycemic drugs; Z87.891 Personal history of nicotine dependence; Z99.81 Dependence on supplemental oxygen; Z79.82 Long term (current) use of aspirin; Z85.118 Personal history of other malignant neoplasm of bronchus and lung
CPT/HCPCS: 71010; 80048; 80069; 82550; 82948; 83540; 83550; 83880; 84484; 85025; 87040; 87077; 87186; 87205; 90935; 93005; 94640; 94664; 96374; 96375; J0456; J0696; J1940; J2270; J7050; J7613

== ENCOUNTER 2017-05-25 09:44 | Inpatient (IN) | payer OTHER, MEDICARE ==
[~2017-05-25] VITALS: Ht 154.9 cm; Wt 58.8 kg
[2017-05-25] VITALS (9 sets, daily range): BP systolic 125–203; BP diastolic 48–96; PULSE 66–84; RESP 16–25; TEMP 98.1–102.2; O2SAT 71–99
[~2017-05-25 09:44] MED LIST changes: -ASPI1TAB91 PO; +ASPI81TA16 PO; -DOXY100C PO; +METO1TAB42 PO; -METO25TA6 PO
--- NOTE | 2017-05-25 10:06 | PD ---
HPI Chief Complaint: Respiratory Symptoms Time Seen by Provider: 10:01 Travel History International Travel<30 days: No Contact w/Intl Traveler<30days: No Traveled to known affect area: No History of Present Illness HPI Patient complains of chest pain 3 days , associated with productive cough and having more difficulty breathing, midsternal radiating towards the back, described as sharp 9 out of 10 intensity, wears oxygen at home saturation in triage 77%.... Patient states that she is normally on 2 L of oxygen at home. mel Multiple allergies to IV dye, Flagyl Levaquin codeine Past medical history significant for hypothyroid, CHF, hypercholesterolemia, hyperlipidemia hypertension, COPD, cholecystectomy appendectomy diverticulitis renal failure patient on Wednesday dialysis active history of lung CA PFSH Past Medical History Hx Anticoagulant Therapy: Yes Arthritis: Yes Asthma: No Blood Disorders: No Anxiety: No Depression: No Heart Rhythm Problems: No Cancer: Yes (lung) Cardiovascular Problems: Yes High Cholesterol: Yes Chemotherapy: No Chest Pain: Yes Congestive Heart Failure: Yes COPD: Yes Diabetes: No Dialysis: Yes (Wed) Diminished Hearing: No Diverticulitis: Yes Endocrine: Yes Gastrointestinal Disorders: Yes (ACID REFLUX) GERD: Yes Genitourinary: Yes Hepatitis: No Hiatal Hernia: Yes Hypertension: Yes Immune Disorder: No Musculoskeletal: Yes Neurologic: No Psychiatric: No Reproductive: No Respiratory: Yes Immunizations Current: Yes Radiation Therapy: Yes Renal Failure: Yes Sleep Apnea: No Thyroid Disease: Yes Triglycerides - High: Yes : 5 Para: 5 Miscarriage: 0 : 0 Tubal Ligation: Yes Past Surgical History Abdominal Surgery: Yes (gallbladder removal, colon resection) AICD: No Appendectomy: Yes Arteriovenous Shunt: Yes Body Medical Devices: LEFT SIDE FISTULA Cholecystectomy: Yes (JAN 2016 ) Joint Replacement: No Pacemaker: No Thoracic Surgery: Yes (lt fistula ) Other Surgery: Yes (L WRIST ) Social History Alcohol Use: No Tobacco Use: No Substance Use: No Allergies-Medications (Allergen,Severity, Reaction): Coded Allergies: diatrizoate meglumine (Verified Allergy, Severe, Hives, 05/25/17) gadobenic acid (Verified Allergy, Severe, Hives, 05/25/17) gadodiamide (Verified Allergy, Severe, Hives, 05/25/17) gadoteridol (Verified Allergy, Severe, Hives, 05/25/17) iodixanol (Verified Allergy, Severe, Hives, 05/25/17) iohexol (Verified Allergy, Severe, Hives, 05/25/17) metronidazole (Verified Allergy, Severe, DIFFICULTY BREATHING, EXTREME NAUSEA, VOMITING, 05/25/17) cholestyramine (Verified Adverse Reaction, Intermediate, STOMACH UPSET, 12/02) codeine (Verified Adverse Reaction, Intermediate, UPSET STOMACH, 05/25/17) colesevelam (Verified Adverse Reaction, Intermediate, STOMACH UPSET, ) gemfibrozil (Verified Adverse Reaction, Intermediate, STOMACH UPSET, ) levofloxacin (Verified Adverse Reaction, Intermediate, Nausea/Vomiting, 12/02) patient said it gave her extreme anxiety also. lorazepam (Verified Adverse Reaction, Intermediate, STOMACH UPSET, 05/25/17 ) lovastatin (Verified Adverse Reaction, Intermediate, STOMACH UPSET, ) propoxyphene (Verified Adverse Reaction, Intermediate, UPSET STOMACH, 05/25) Reported Meds & Prescriptions Reported Meds & Active Scripts Active Oxygen tank (Oxygen) 1 Ea Tank 2 Liter CLEMENTE.CANULA CONTINUOUS Oxygen Concentrator Portable Gaseous 2 L/min via Nasal Cannula Continuous For 99 months Reported Nifedipine ER (Nifedipine) 90 Mg Tab 90 Mg PO DAILY Omeprazole 40 Mg Cap 40 Mg PO DAILY Sucralfate 1 Gm Tab 1 Gm PO TID on empty stomach Losartan (Losartan Potassium) 100 Mg Tab 100 Mg PO DAILY Levothyroxine (Levothyroxine Sodium) 100 Mcg Tab 100 Mcg PO DAILY Flonase Nasal [place] (Fluticasone Nasal Fenwick) 50 Mcg/Act Fenwick 2 Fenwick EACH NARE DAILY PRN Centrum Silver Adult 50+ (Multiple Vitamins W/ Minerals) 1 Tab Tab 1 Tab PO AC LUNCH Senna S (Sennosides-Docusate Sodium) 8.6-50 Mg Tab 4 Tab PO HS Lutein 20 Mg Cap 20 Mg PO DAILY Fluoxetine (Fluoxetine HCl) 20 Mg Tab 20 Mg PO HS Fenofibrate 54 Mg Tab 54 Mg PO AC LUNCH Catapres (Clonidine) 0.2 Mg Tab 0.2 Mg PO Q8HR Atorvastatin (Atorvastatin Calcium) 10 Mg Tab 10 Mg PO HS Calcitriol 0.25 Mcg Cap 0.25 Mcg PO DAILY Aspirin Adult Low Strength (Aspirin) 81 Mg Tabdr 81 Mg PO DAILY Ventolin Hfa 18 GM Inh (Albuterol Sulfate) 90 Mcg/Act Aer 2 Puff INH Q4H PRN Metoprolol Succinate ER 24 HR (Metoprolol Succinate) 25 Mg Tab 25 Mg PO DAILY Review of Systems General / Constitutional: No: Fever Eyes: No: Visual changes HENT: No: Headaches Cardiovascular: Positive: Chest Pain or Discomfort Respiratory: No: Shortness of Breath Gastrointestinal: No: Abdominal Pain Genitourinary: No: Dysuria Musculoskeletal: No: Pain Skin: No Rash Neurologic: No: Weakness Psychiatric: No: Depression Endocrine: No: Polydipsia Hematologic/Lymphatic: No: Easy Bruising Physical Exam Narrative GENERAL: SKIN: Warm and dry. HEAD: Atraumatic. Normocephalic. EYES: Pupils equal and round. No scleral icterus. No injection or drainage. ENT: No nasal bleeding or discharge. Mucous membranes pink and moist. NECK: Trachea midline. No JVD. CARDIOVASCULAR: Regular rate and rhythm. RESPIRATORY: No accessory muscle use. Clear to auscultation. Breath sounds equal bilaterally. Left lung base rhonchi/crackles, right lung has diffuse rhonchi and some scattered wheezing minimal GASTROINTESTINAL: Abdomen soft, non-tender, nondistended. MUSCULOSKELETAL: Extremities without clubbing, cyanosis, or edema. No obvious deformities. NEUROLOGICAL: Awake and alert. No obvious cranial nerve deficits. Motor grossly within normal limits. Five out of 5 muscle strength in the arms and legs. Normal speech. PSYCHIATRIC: Appropriate mood and affect; insight and judgment normal. Data Data Last Documented VS Vital Signs Date Time Temp Pulse Resp B/P (MAP) Pulse Ox O2 Delivery O2 Flow Rate FiO2 05/25/17 10:09 97 Nasal Cannula 2.00 05/25/17 10:09 102.2 79 24 125/96 (106) Orders Orders Sepsis Workup Initiated (05/25/17 ) Electrocardiogram (05/25/17 10:06) Complete Blood Count With Diff (05/25/17 10:06) Comprehensive Metabolic Panel (05/25/17 10:06) Prothrombin Time / Inr (Pt) (05/25/17 10:06) Act Partial Throm Time (Ptt) (05/25/17 10:06) Lactic Acid Sepsis Protocol (05/25/17 10:06) Lipase (05/25/17 10:06) Ckmb (Isoenzyme) Profile (05/25/17 10:06) Troponin I (05/25/17 10:06) Urinalysis - C+S If Indicated (05/25/17 10:) Blood Culture (05/25/17 10:06) Chest, Single Ap (05/25/17 10:06) Blood Glucose (05/25/17 10:06) Ecg Monitoring (05/25/17 10:) Iv Access Insert/Monitor (05/25/17 10:) Oximetry (05/25/17 10:06) Oxygen Administration (05/25/17 10:06) Acetaminophen (Tylenol) (05/25/17 10:30) Morphine Inj (Morphine Inj) (05/25/17 10:30) Ondansetron Inj (Zofran Inj) (05/25/17 10:30) Cefepime Inj (Maxipime Inj) (05/25/17 10:30) Labs Laboratory Tests Test 05/25/17 10:05 White Blood Count 15.3 TH/MM3 Red Blood Count 3.57 MIL/MM3 Hemoglobin 11.4 GM/DL Hematocrit 35.6 % Mean Corpuscular Volume 99.9 FL Mean Corpuscular Hemoglobin 32.0 PG Mean Corpuscular Hemoglobin Concent 32.0 % Red Cell Distribution Width 16.0 % Platelet Count 149 TH/MM3 Mean Platelet Volume 8.0 FL Neutrophils (%) (Auto) 93.3 % Lymphocytes (%) (Auto) 2.1 % Monocytes (%) (Auto) 4.2 % Eosinophils (%) (Auto) 0.0 % Basophils (%) (Auto) 0.4 % Neutrophils # (Auto) 14.2 TH/MM3 Lymphocytes # (Auto) 0.3 TH/MM3 Monocytes # (Auto) 0.6 TH/MM3 Eosinophils # (Auto) 0.0 TH/MM3 Basophils # (Auto) 0.1 TH/MM3 CBC Comment DIFF FINAL Differential Comment Prothrombin Time 10.9 SEC Prothromb Time International Ratio 1.1 RATIO Activated Partial Thromboplast Time 23.4 SEC Blood Urea Nitrogen 43 MG/DL Creatinine 3.56 MG/DL Random Glucose 88 MG/DL Total Protein 6.6 GM/DL Albumin 2.8 GM/DL Calcium Level 8.3 MG/DL Alkaline Phosphatase 90 U/L Aspartate Amino Transf (AST/SGOT) 28 U/L Alanine Aminotransferase (ALT/SGPT) 24 U/L Total Bilirubin 0.5 MG/DL Sodium Level 142 MEQ/L Potassium Level 4.6 MEQ/L Chloride Level 108 MEQ/L Carbon Dioxide Level 23.2 MEQ/L Anion Gap 11 MEQ/L Estimat Glomerular Filtration Rate 12 ML/MIN Lactic Acid Level 0.7 mmol/L Total Creatine Kinase 32 U/L Troponin I 0.05 NG/ML Lipase 162 U/L MDM Medical Decision Making Medical Screen Exam Complete: Yes Emergency Medical Condition: Yes Medical Record Reviewed: Yes Interpretation(s) EKG shows normal sinus rhythm, 80 bpm, P mitrale, no STEMI pattern noted Differential Diagnosis Pneumonia versus STEMI versus non-STEMI versus COPD exacerbation Narrative Course Leukocytosis shows 15,000 leukocytosis with 93% neutrophilia, H&H is stable and a platelet count is 149,000. Regulation profile is within normal limits Electrolytes are all within normal limits with exception of BUN and creatinine which is elevated at 43/3.56 with a GFR of 12. First set is negative cardiac enzymes. Normal liver and lipase Diagnosis Primary Impression: Chest pain Qualified Codes: R07.9 - Chest pain, unspecified Admitting Information Admitting Physician Requests: Stanislav Villa MD May 25, 2017 10:06
[2017-05-25] MEDS ORDERED: ACETAMINOPHEN 325 MG TAB PO ONE (10:30)
[2017-05-25] MEDS ORDERED: CEFEPIME INJ 1,000 MG in SODIUM CHLORIDE 0.9% INJ 100 ML IV ONE (10:30)
[2017-05-25] MEDS ORDERED: MORPHINE SULFATE 4 MG/ML INJ IV PUSH ONE (10:30)
[2017-05-25] MEDS ORDERED: ONDANSETRON HCL 4 MG/2 ML VIAL IV PUSH ONE (10:30)
--- NOTE | 2017-05-25 11:02 | RADRPT ---
EXAM DATE/TIME: 05/25/2017 10:13 [facility] COMPARISON: CHEST SINGLE AP, October 13, 2016, 10:33. INDICATIONS : Chest pain MEDICAL HISTORY : Carcinoma, lung. Chronic obstructive pulmonary disease. Congestive heart failure. hypertension SURGICAL HISTORY : Appendectomy. Cholecystectomy. Tubal ligation. colon resection ENCOUNTER: Initial ACUITY: 1 week PAIN SCORE: 9/10 LOCATION: Bilateral chest FINDINGS: Portable AP view of the chest demonstrates cardiac silhouette size is the upper limits for normal wit h calcification of the aorta. There is focal right upper lobe airspace consolidation overlying an are a of staple lines. There is focal air space consolidation in the left midlung zone, stable from the p rior study. No pneumothorax or definite pleural effusion is seen. Bones and soft tissues demonstrate no acute finding. Cement material is present within 3 adjacent vertebral bodies. CONCLUSION: Stable chest x-ray with chronic right upper lobe and left midlung zone airspace consolidation. Te Freeman MD on May 25, 2017 at 10:57 Board Certified Radiologist. This report was verified electronically.
[2017-05-25 11:06] LABS: AUTOMATED NEUTROPHIL # 14.2 TH/MM3 (1.8-7.7); BASOPHIL # 0.1 TH/MM3 (0-0.2); BASOPHIL % 0.4 % (0.0-2.0); HEMATOCRIT 35.6 % (35.0-46.0); HEMOGLOBIN 11.4 GM/DL (11.6-15.3); LYMPH % 2.1 % (9.0-44.0); LYMPHOCYTE # 0.3 TH/MM3 (1.0-4.8); MEAN CELL VOLUME 99.9 FL (80.0-100.0); MONO % 4.2 % (0.0-8.0); MONOCYTE # 0.6 TH/MM3 (0-0.9); NEUT % 93.3 % (16.0-70.0); PLATELET COUNT 149 TH/MM3 (150-450); RED BLOOD COUNT 3.57 MIL/MM3 (4.00-5.30); WHITE BLOOD COUNT 15.3 TH/MM3 (4.0-11.0)
[2017-05-25 11:25] LABS: INTERNATIONAL NORMALIZED RATIO 1.1 RATIO; PROTHROMBIN TIME - PATIENT 10.9 SEC (9.8-11.6)
[2017-05-25 11:28] LABS: ALBUMIN 2.8 GM/DL (3.4-5.0); ALT (GPT) 24 U/L (10-53); AST (GOT) 28 U/L (15-37); BICARBONATE 23.2 MEQ/L (21.0-32.0); BLOOD UREA NITROGEN 43 MG/DL (7-18); CALCIUM 8.3 MG/DL (8.5-10.1); CHLORIDE 108 MEQ/L (98-107); CREATININE 3.56 MG/DL (0.50-1.00); GLOMERULAR FILTRATION RATE 12 ML/MIN (>89); GLUCOSE,RANDOM 88 MG/DL (74-106); SODIUM (NA) 142 MEQ/L (136-145)
[2017-05-25 11:32] LABS: ALKALINE PHOSPHATASE 90 U/L (45-117); TOTAL BILIRUBIN ADULT 0.5 MG/DL (0.2-1.0); TOTAL PROTEIN 6.6 GM/DL (6.4-8.2); TROPONIN I 0.05 NG/ML (0.02-0.05)
[2017-05-25] MEDS ORDERED: MAGNESIUM HYDROXIDE SUSP 30 ML CUP PO PRN (12:45)
[2017-05-25] MEDS ORDERED: NALOXONE HCL 0.4 MG/ML AMP IV PUSH PRN (12:45)
[2017-05-25] MEDS ORDERED: ACETAMINOPHEN 325 MG TAB PO PRN ×3 (12:45→15:30)
[2017-05-25] MEDS ORDERED: oxyCODONE/ACETAMINOPHEN 10 MG/325 MG TAB PO PRN (12:45)
[2017-05-25] MEDS ORDERED: LACTULOSE SYRUP 20 GM/30 ML CUP PO PRN (12:45)
[2017-05-25] MEDS ORDERED: FLUTICASONE PROPIONATE 50 MCG/ACT 16 GM NASAL SPRAY EACH NARE PRN (12:45)
[2017-05-25] MEDS ORDERED: RESP: ALBUTEROL 2.5 MG/IPRATROPIUM 0.5 MG NEB (PRN) INH (12:45)
[2017-05-25] MEDS ORDERED: BISACODYL 10 MG SUPP RECTAL PRN (12:45)
[2017-05-25] MEDS ORDERED: SUCRALFATE 1 GM TAB PO SCH (13:00)
[2017-05-25] MEDS: cloNIDine HCL 0.1 MG TAB PO PRN (14:41)
[2017-05-25] MEDS: HEPARIN SODIUM - SQ 10,000 UNITS/ML VIAL SQ SCH (14:41)
[2017-05-25] MEDS: methylPREDNISolone SOD SUCC 40 MG/1 ML VIAL IV PUSH SCH (14:41)
[2017-05-25] MEDS: ONDANSETRON HCL 4 MG/2 ML VIAL IVP PRN (14:41)
[2017-05-25] MEDS: MORPHINE SULFATE 2 MG/ML SYRINGE IV PUSH PRN ×2 (14:42→22:06)
[2017-05-25] MEDS: SODIUM CHLORIDE 0.9% FLUSH 10 ML FLUSH IV FLUSH PRN (14:42)
[2017-05-25] MEDS: cloNIDine HCL 0.2 MG TAB PO SCH ×2 (14:45→22:05)
[2017-05-25] MEDS ORDERED: SODIUM CHLOR 0.9% 1000 ML INJ 1,000 ML IV PRN (15:19)
[2017-05-25] MEDS ORDERED: SODIUM CHLOR 0.9% 1000 ML INJ 1,000 ML OTHER PRN ×2 (15:19)
[2017-05-25 15:25] LABS: TROPONIN I 0.06 NG/ML (0.02-0.05)
[2017-05-25] MEDS ORDERED: diphenhydrAMINE HCL 25 MG CAP PO PRN (15:30)
[2017-05-25] MEDS ORDERED: HEPARIN SODIUM - IV 10,000 UNITS/10 ML VIAL PRN (15:30)
[2017-05-25] MEDS ORDERED: Vancomycin Consult Pharmacy 1 EA OTHER SCH (15:30)
[2017-05-25] MEDS ORDERED: HEPARIN SODIUM - IV 10,000 UNITS/10 ML VIAL IV FLUSH PRN (15:30)
[2017-05-25] MEDS ORDERED: ALBUMIN 25% INJ 100 ML IV PRN (15:30)
[2017-05-25] MEDS ORDERED: GENTAMICIN SULFATE 20 MG/2 ML VIAL OTHER PRN (15:30)
[2017-05-25] MEDS ORDERED: MANNITOL 12.5 GM/50 ML VIAL IV PRN (15:30)
[2017-05-25] MEDS ORDERED: SODIUM CHLORIDE 0.9% FLUSH 10 ML FLUSH IV FLUSH PRN (15:30)
[2017-05-25] MEDS ORDERED: NITROGLYCERIN 0.4 MG SL 25 TABS/BTL SL PRN (15:30)
[2017-05-25] MEDS ORDERED: EPOETIN ALFA 10,000 UNITS/ML VIAL IV PUSH PRN ×2 (15:30→15:45)
--- NOTE | 2017-05-25 15:43 | HHI.HP ---
[facility] No Primary Care Physician Admission Diagnosis POSSIBLE PNA, MISSED DIALYSIS, HYPOXEMIA Diagnoses: (1) Lung cancer Diagnosis: Principal (2) COPD exacerbation Diagnosis: Principal (3) Accelerated hypertension Diagnosis: Principal (4) Fluid overload Diagnosis: Principal (5) End stage renal disease on dialysis Diagnosis: Principal (6) PNA (pneumonia) Diagnosis: Principal Chief Complaint: Respiratory symptoms Travel History International Travel<30 Days: No Contact w/Intl Traveler <30 Da: No Traveled to Known Affected Are: No Sepsis Criteria SIRS Criteria (2 or more): Temp > 100.9 or < 96.8 Sepsis Criteria (SIRS+source): Infect source susp/known History of Present Illness Patient is a 81-year-old female who has a history of lung cancer and end-stage renal disease on hemodialysis Wednesday, , and Wednesday. As well as hypertension and hypercholesterolemia and hypothyroidism and congestive heart failure and lung cancer who presents to the emergency department for chest pain for the past 3 days associated with a productive cough having more difficulty breathing as well as midsternal radiating towards the back she describes as 9 out of 10 intensity she wears oxygen at home and is only saturating in the 77% on a couple liters. Therefore the patient will be admitted for hypoxia and treatment of her COPD/bronchitis as well as her end-stage renal disease on hemodialysis and chest pain more than likely due to her lung cancer Review of Systems Constitutional: COMPLAINS OF: Fatigue, Fever, DENIES: Diaphoretic episodes, Weight gain, Weight loss, Chills, Dizziness, Change in appetite, Night Sweats Endocrine: DENIES: Abnorml menstrual pattern, Heat/cold intolerance, Polydipsia , Polyuria, Polyphagia Eyes: DENIES: Blurred vision, Diplopia, Eye inflammation, Eye pain, Vision loss , Photosensitivity, Double Vision Ears, nose, mouth, throat: DENIES: Tinnitus, Hearing loss, Vertigo, Nasal discharge, Oral lesions, Throat pain, Hoarseness, Ear Pain, Running Nose, Odynophagia Respiratory: COMPLAINS OF: Cough, Shortness of breath, DENIES: Apneas, Snoring , Wheezing, Hemoptysis, Sputum production Cardiovascular: COMPLAINS OF: Chest pain, Dyspnea on Exertion, DENIES: Palpitations, Syncope, PND, Lower Extremity Edema, Orthopnea, Claudication Gastrointestinal: DENIES: Abdominal pain, Black stools, Bloody stools, Constipation, Diarrhea Genitourinary: DENIES: Abnormal vaginal bleeding, Dysmenorrhea, Dyspareunia, Sexual dysfunction, Vaginal discharge Musculoskeletal: COMPLAINS OF: Joint pain, DENIES: Muscle aches, Stiffness, Joint Swelling, Back pain, Neck pain Integumentary: DENIES: Abnormal pigmentation, Pruritus, Rash, Nail changes, Breast masses, Breast skin changes, Nipple discharge Hematologic/lymphatic: DENIES: Bruising, Lymphadenopathy Immunologic/allergic: DENIES: Eczema, Urticaria Neurologic: DENIES: Abnormal gait, Headache, Localized weakness, Paresthesias, Seizures, Speech Problems, Tremor, Poor Balance Psychiatric: DENIES: Anxiety, Confusion, Mood changes, Depression, Hallucinations, Agitation, Suicidal Ideation, Homicidal Ideation, Delusions Except as stated in HPI: all other systems reviewed are Neg Past Family Social History Past Medical History Osteoarthritis Hypertension hyperlipidemia hypercholesterolemia Chest pain Congestive heart failure COPD End-stage renal disease on hemodialysis Wednesday, , Wednesday History of diverticulitis GERD and acid reflux Hiatal hernia History of radiation treatment for the lung cancer Thyroid disorder Hypertriglyceridemia Past Surgical History Tubal ligation Cholecystectomy Colon resection Appendectomy Arteriovenous shunt with a left-sided fistula Left wrist surgery Reported Medications Reported Meds & Active Scripts Active Oxygen tank (Oxygen) 1 Ea Tank 2 Liter CLEMENTE.CANULA CONTINUOUS Oxygen Concentrator Portable Gaseous 2 L/min via Nasal Cannula Continuous For 99 months Reported Nifedipine ER (Nifedipine) 90 Mg Tab 90 Mg PO DAILY Omeprazole 40 Mg Cap 40 Mg PO DAILY Sucralfate 1 Gm Tab 1 Gm PO TID on empty stomach Losartan (Losartan Potassium) 100 Mg Tab 100 Mg PO DAILY Levothyroxine (Levothyroxine Sodium) 100 Mcg Tab 100 Mcg PO DAILY Flonase Nasal [place] (Fluticasone Nasal [place]) 50 Mcg/Act [place] 2 [place] EACH NARE DAILY PRN Centrum Silver Adult 50+ (Multiple Vitamins W/ Minerals) 1 Tab Tab 1 Tab PO AC LUNCH Senna S (Sennosides-Docusate Sodium) 8.6-50 Mg Tab 4 Tab PO HS Lutein 20 Mg Cap 20 Mg PO DAILY Fluoxetine (Fluoxetine HCl) 20 Mg Tab 20 Mg PO HS Fenofibrate 54 Mg Tab 54 Mg PO AC LUNCH Catapres (Clonidine) 0.2 Mg Tab 0.2 Mg PO Q8HR Atorvastatin (Atorvastatin Calcium) 10 Mg Tab 10 Mg PO HS Calcitriol 0.25 Mcg Cap 0.25 Mcg PO DAILY Aspirin Adult Low Strength (Aspirin) 81 Mg Tabdr 81 Mg PO DAILY Ventolin Hfa 18 GM Inh (Albuterol Sulfate) 90 Mcg/Act Aer 2 Puff INH Q4H PRN Metoprolol Succinate ER 24 HR (Metoprolol Succinate) 25 Mg Tab 25 Mg PO DAILY Allergies: Coded Allergies: diatrizoate meglumine (Verified Allergy, Severe, Hives, 05/25/17) gadobenic acid (Verified Allergy, Severe, Hives, 05/25/17) gadodiamide (Verified Allergy, Severe, Hives, 05/25/17) gadoteridol (Verified Allergy, Severe, Hives, 05/25/17) iodixanol (Verified Allergy, Severe, Hives, 05/25/17) iohexol (Verified Allergy, Severe, Hives, 05/25/17) metronidazole (Verified Allergy, Severe, DIFFICULTY BREATHING, EXTREME NAUSEA, VOMITING, 05/25/17) cholestyramine (Verified Adverse Reaction, Intermediate, STOMACH UPSET, 12/02) codeine (Verified Adverse Reaction, Intermediate, UPSET STOMACH, 05/25/17) colesevelam (Verified Adverse Reaction, Intermediate, STOMACH UPSET, ) gemfibrozil (Verified Adverse Reaction, Intermediate, STOMACH UPSET, ) levofloxacin (Verified Adverse Reaction, Intermediate, Nausea/Vomiting, 12/02) patient said it gave her extreme anxiety also. lorazepam (Verified Adverse Reaction, Intermediate, STOMACH UPSET, 05/25/17 ) lovastatin (Verified Adverse Reaction, Intermediate, STOMACH UPSET, ) propoxyphene (Verified Adverse Reaction, Intermediate, UPSET STOMACH, 05/25) Active Ordered Medications Current Medications Acetaminophen (Tylenol) 650 mg ONCE ONCE PO Last administered on 05/25/17at 10: 47; Start 05/25/17 at 10:30; Stop 05/25/17 at 10:31; Status DC Morphine Sulfate (Morphine Inj) 4 mg ONCE ONCE IV PUSH Last administered on 12/02at 10:46; Start 05/25/17 at 10:30; Stop 05/25/17 at 10:31; Status DC Ondansetron HCl (Zofran Inj) 4 mg ONCE ONCE IV PUSH Last administered on at 10:46; Start 05/25/17 at 10:30; Stop 05/25/17 at 10:31; Status DC Cefepime HCl 1000 mg/Sodium Chloride 100 ml @ 200 mls/hr ONCE ONCE IV Last administered on 05/25/17at 10:46; Start 05/25/17 at 10:30; Stop 05/25/17 at 10:59 ; Status DC Aspirin (Ecotrin Ec) 81 mg DAILY PO ; Start 05/26/17 at 09:00 Atorvastatin Calcium (Lipitor) 10 mg HS PO ; Start 05/25/17 at 21:00 Calcitriol (Rocaltrol) 0.25 mcg DAILY PO ; Start 05/26/17 at 09:00 Clonidine (Catapres) 0.2 mg Q8HR PO Last administered on 05/25/17at 14:45; Start 05/25/17 at 14:00 Fluoxetine HCl (PROzac) 20 mg HS PO ; Start 05/25/17 at 21:00 Levothyroxine Sodium (Synthroid) 100 mcg DAILY@0600 PO ; Start 05/26/17 at 06:00 Losartan Potassium (Cozaar) 100 mg DAILY PO ; Start 05/26/17 at 09:00 Metoprolol Succinate (Toprol Xl) 25 mg DAILY PO ; Start 05/26/17 at 09:00 Nifedipine (Procardia Xl) 90 mg DAILY PO ; Start 05/26/17 at 09:00 Senna/Docusate Sodium (Irma-Colace) 4 tab HS PO ; Start 05/25/17 at 21:00 Sucralfate (Carafate) 1 gm TID PO ; Start 05/25/17 at 13:00 Fenofibrate (Tricor) 48 mg AC LUNCH PO ; Start 05/26/17 at 11:00 Fluticasone Propionate (Flonase [place] Spr) 2 spray DAILY PRN EACH NARE ALLERGIES ; Start 05/25/17 at 12:45 Non-Formulary Medication 20 mg DAILY PO ; Start 05/26/17 at 09:00; Stop at 09:00; Status DC Multivitamins/ Minerals Therapeutic (Theragran M Tab) 1 tab AC LUNCH PO ; Start 05/26/17 at 11:00 Pantoprazole Sodium (Protonix) 40 mg DAILY PO ; Start 05/26/17 at 09:00 Clonidine (Catapres) 0.1 mg Q4H PRN PO SBP>160, DBP>90; Start 05/25/17 at 12:45 Sodium Chloride (NS Flush) 2 ml UNSCH PRN IV FLUSH FLUSH AFTER USING IV ACCESS Last administered on 05/25/17at 14:42; Start 05/25/17 at 12:45 Sodium Chloride (NS Flush) 2 ml BID IV FLUSH ; Start 05/25/17 at 21:00 Acetaminophen (Tylenol) 650 mg Q4H PRN PO TEMP > 100.4; Start 05/25/17 at 12:45 Ondansetron HCl (Zofran Inj) 4 mg Q6H PRN IVP NAUSEA OR VOMITING Last administered on 05/25/17at 14:41; Start 05/25/17 at 12:45 Metoclopramide HCl (Reglan Inj) 5 mg Q6H PRN IV PUSH NAUSEA OR VOMITING; Start 05/25/17 at 12:45 Heparin Sodium (Porcine) (Heparin Inj) 5,000 units Q12H SQ Last administered on 05/25/17at 14:41; Start 05/25/17 at 14:00 Acetaminophen (Tylenol) 650 mg Q6H PRN PO PAIN SCALE 1 TO 2; Start 05/25/17 at 12:45 Oxycodone/ Acetaminophen (Percocet 5-325 Mg) 1 tab Q6H PRN PO PAIN SCALE 3 TO 5; Start 05/25/17 at 12:45 Oxycodone/ Acetaminophen (Percocet 10-325 Mg) 1 tab Q6H PRN PO PAIN SCALE 6 TO 10; Start 05/25/17 at 12:45 Morphine Sulfate (Morphine Inj) 2 mg Q3H PRN IV PUSH Pain 3-5; if unable to take PO; Start 05/25/17 at 12:45 Morphine Sulfate (Morphine Inj) 4 mg Q3H PRN IV PUSH Pain 6-10;if unable to take PO Last administered on 05/25/17at 14:42; Start 05/25/17 at 12:45 Naloxone HCl (Narcan Inj) 0.4 mg UNSCH PRN IV PUSH SEE LABEL COMMENTS; Start at 12:45 Senna/Docusate Sodium (Irma-Colace) 1 tab BID PO ; Start 05/25/17 at 21:00; Stop 05/25/17 at 21:00; Status DC Magnesium Hydroxide (Milk Of Magnesia Liq) 30 ml Q12H PRN PO Mild constipation ; Start 05/25/17 at 12:45 Sennosides (Senokot) 17.2 mg Q12H PRN PO Moderate constipation; Start 05/25/17 at 12:45 Bisacodyl (Dulcolax Supp) 10 mg DAILY PRN RECTAL SEVERE CONSITIPATION; Start at 12:45 Lactulose (Lactulose Liq) 30 ml DAILY PRN PO SEVERE CONSITIPATION; Start at 12:45 Albuterol/ Ipratropium (Duoneb Neb) 1 ampule Q6HR NEB INH ; Start 05/25/17 at 16:00 Albuterol/ Ipratropium (Duoneb Neb) 1 ampule Q4HR NEB PRN INH SHORTNESS OF BREATH; Start 05/25/17 at 12:45 Methylprednisolone Sodium Succinate (SoluMEDROL INJ) 40 mg Q12H IV PUSH Last administered on 05/25/17at 14:41; Start 05/25/17 at 14:00 Guaifenesin (Mucinex Er) 600 mg BID PO ; Start 05/25/17 at 12:45 Sodium Chloride 1,000 ml @ 0 mls/hr Q0M PRN OTHER For Prime & Rinse Back; Start 05/25/17 at 15:19 Heparin Sodium (Porcine) (Heparin Inj) 8,000 units UNSCH PRN IV FLUSH WITH DIALYSIS; Start 05/25/17 at 15:30 Sodium Chloride 1,000 ml @ 200 mls/hr Q5H PRN IV WITH DIALYSIS; Start 05/25/17 at 15:19 Sodium Chloride 1,000 ml @ 0 mls/hr Q0M PRN OTHER WITH DIALYSIS; Start at 15:19 Mannitol (Mannitol Inj) 12.5 gm UNSCH PRN IV WITH DIALYSIS; Start 05/25/17 at 15:30 Albumin Human 100 ml @ 60 mls/hr UNSCH PRN IV WITH DIALYSIS; Start 05/25/17 at 15:30 Sodium Chloride (NS Flush) 5 ml UNSCH PRN IV FLUSH WITH DIALYSIS; Start at 15:30 Heparin Sodium (Porcine) (Heparin Inj) UNSCH PRN .XX WITH DIALYSIS; Start 12/02 at 15:30 Gentamicin Sulfate (Gentamicin Inj) 20 mg UNSCH PRN OTHER WITH DIALYSIS; Start 05/25/17 at 15:30 Ondansetron HCl (Zofran Inj) 4 mg UNSCH PRN IV PUSH WITH DIALYSIS; Start at 15:30 Acetaminophen (Tylenol) 650 mg UNSCH PRN PO for headach, pain, temp > 101F; Start 05/25/17 at 15:30 Diphenhydramine HCl (Benadryl) 25 mg UNSCH PRN PO for hives/itching/anaphylaxis ; Start 05/25/17 at 15:30 Nitroglycerin (Nitrostat Sl) 0.4 mg UNSCH PRN SL CHEST PAIN; Start 05/25/17 at 15:30 Clonidine (Catapres) 0.1 mg UNSCH PRN PO for BP > 180/100 X 2 readings; Start 05/25/17 at 15:30 Epoetin Rohan (Epogen Inj) 7,400 units UNSCH PRN IV PUSH WITH DIALYSIS; Start at 15:30 Gelatin (Gelfoam 12 Mm/7 Mm Top) 1 foam UNSCH PRN TOP SEE LABEL COMMENTS; Start 05/25/17 at 15:30 Family History Both parents Social History Denies any tobacco, alcohol, or illicits currently Physical Exam Vital Signs Vital Signs Date Time Temp Pulse Resp B/P (MAP) Pulse Ox O2 Delivery O2 Flow Rate FiO2 05/25/17 14:52 99.2 68 16 96 Nasal Cannula 2.00 05/25/17 10:09 97 Nasal Cannula 2.00 05/25/17 10:09 102.2 79 24 125/96 (106) 97 Nasal Cannula 2.00 05/25/17 10:03 80 Nasal Cannula 2.00 05/25/17 09:53 102.2 84 25 125/96 (106) 71 Room Air 05/25/17 09:47 98.4 81 24 203/84 (123) 77 Physical Exam GENERAL: This is a well-nourished, well-developed patient, in no apparent distress. SKIN: No rashes, ecchymoses or lesions. Cool and dry. HEAD: Atraumatic. Normocephalic. No temporal or scalp tenderness. EYES: Pupils equal round and reactive. Extraocular motions intact. No scleral icterus. No injection or drainage. ENT: Nose without bleeding, purulent drainage or septal hematoma. Throat without erythema, tonsillar hypertrophy or exudate. Uvula midline. Airway patent. NECK: Trachea midline. No JVD or lymphadenopathy. Supple, nontender, no meningeal signs. CARDIOVASCULAR: Regular rate and rhythm without murmurs, gallops, or rubs. S1- S2 no S3 or S4 RESPIRATORY: Clear to auscultation. Breath sounds equal bilaterally. No wheezes , rales, or rhonchi. Coarse breath sounds on the right side GASTROINTESTINAL: Abdomen soft, non-tender, nondistended. No hepato-splenomegaly , or palpable masses. No guarding. MUSCULOSKELETAL: Extremities without clubbing, cyanosis, or edema. No joint tenderness, effusion, or edema noted. No calf tenderness. Negative Homans sign bilaterally. NEUROLOGICAL: Awake and alert. Cranial nerves II through XII intact. Motor and sensory grossly within normal limits. 4 out of 5 muscle strength in all muscle groups. Normal speech. Insight and judgment is good Mood and behaviors appropriate Laboratory Laboratory Tests Test 05/25/17 10:05 05/25/17 14:15 White Blood Count 15.3 Red Blood Count 3.57 Hemoglobin 11.4 Hematocrit 35.6 Mean Corpuscular Volume 99.9 Mean Corpuscular Hemoglobin 32.0 Mean Corpuscular Hemoglobin Concent 32.0 Red Cell Distribution Width 16.0 Platelet Count 149 Mean Platelet Volume 8.0 Neutrophils (%) (Auto) 93.3 Lymphocytes (%) (Auto) 2.1 Monocytes (%) (Auto) 4.2 Eosinophils (%) (Auto) 0.0 Basophils (%) (Auto) 0.4 Neutrophils # (Auto) 14.2 Lymphocytes # (Auto) 0.3 Monocytes # (Auto) 0.6 Eosinophils # (Auto) 0.0 Basophils # (Auto) 0.1 CBC Comment DIFF FINAL Differential Comment Prothrombin Time 10.9 Prothromb Time International Ratio 1.1 Activated Partial Thromboplast Time 23.4 Blood Urea Nitrogen 43 Creatinine 3.56 Random Glucose 88 Total Protein 6.6 Albumin 2.8 Calcium Level 8.3 Alkaline Phosphatase 90 Aspartate Amino Transf (AST/SGOT) 28 Alanine Aminotransferase (ALT/SGPT) 24 Total Bilirubin 0.5 Sodium Level 142 Potassium Level 4.6 Chloride Level 108 Carbon Dioxide Level 23.2 Anion Gap 11 Estimat Glomerular Filtration Rate 12 Lactic Acid Level 0.7 Total Creatine Kinase 32 Troponin I 0.05 Lipase 162 Date/Time Source Procedure Growth Status 05/25/17 10:10 Blood Peripheral Aerobic Blood Culture Pending Received 05/25/17 10:10 Blood Peripheral Anaerobic Blood Culture Pending Received Result Diagram: 05/25/17 1005 05/25/17 1005 Imaging Last Impressions Chest X-Ray 05/25/17 1006 Signed Impressions: Service Date/Time: Thursday, May 25, 2017 10:13 - CONCLUSION: Stable chest x-ray with chronic right upper lobe and left midlung zone airspace consolidation. MD Nery Khalil VTE Risk Assessment Caprini VTE Risk Assessment: Mod/High Risk (score >= 2) Caprini Risk Assessment Model Point Value = 1 Point Value = 2 Point Value = 3 Point Value = 5 Age 41-60 Minor surgery BMI > 25 kg/m2 Swollen legs Varicose veins or History of unexplained or recurrent spontaneous Oral contraceptives or hormone replacement Sepsis (< 1 month) Serious lung disease, including pneumonia (< 1 month) Abnormal pulmonary function Acute myocardial infarction Congestive heart failure (< 1 month) History of inflammatory bowel disease Medical patient at bed rest Age 61-74 Arthroscopic surgery Major open surgery (> 45 min) Laparoscopic surgery (> 45 min) Malignancy Confined to bed (> 72 hours) Immobilizing plaster cast Central venous access Age >= 75 History of VTE Family history of VTE Factor V Leiden Prothrombin [id number] Lupus anticoagulant Anticardiolipin antibodies Elevated serum homocysteine Heparin-induced thrombocytopenia Other congenital or acquired thrombophilia Stroke (< 1 month) Elective arthroplasty Hip, pelvis, or leg fracture Acute spinal cord injury (< 1 month) Prophylaxis Regimen Total Risk Factor Score Risk Level Prophylaxis Regimen 0-1 Low Early ambulation 2 Moderate Order ONE of the following: *Sequential Compression Device (SCD) *Heparin 5000 units SQ BID 3-4 Higher Order ONE of the following medications: *Heparin 5000 units SQ TID *Enoxaparin/Lovenox 40 mg SQ daily (WT < 150 kg, CrCl > 30 mL/min) *Enoxaparin/Lovenox 30 mg SQ daily (WT < 150 kg, CrCl > 10-29 mL/min) *Enoxaparin/Lovenox 30 mg SQ BID (WT < 150 kg, CrCl > 30 mL/min) AND/OR *Sequential Compression Device (SCD) 5 or more Highest Order ONE of the following medications: *Heparin 5000 units SQ TID (Preferred with Epidurals) *Enoxaparin/Lovenox 40 mg SQ daily (WT < 150 kg, CrCl > 30 mL/min) *Enoxaparin/Lovenox 30 mg SQ daily (WT < 150 kg, CrCl > 10-29 mL/min) *Enoxaparin/Lovenox 30 mg SQ BID (WT < 150 kg, CrCl > 30 mL/min) AND *Sequential Compression Device (SCD) Assessment and Plan Problem List: (1) PNA (pneumonia) ICD Code: J18.9 - Pneumonia, unspecified organism Status: Acute (2) End stage renal disease on dialysis ICD Code: N18.6 - End stage renal disease; Z99.2 - Dependence on renal dialysis Status: Chronic (3) COPD exacerbation ICD Code: J44.1 - Chronic obstructive pulmonary disease with (acute) exacerbation Status: Acute (4) Accelerated hypertension ICD Code: I10 - Essential (primary) hypertension Status: Acute (5) Lung cancer ICD Code: C34.90 - Malignant neoplasm of unspecified part of unspecified bronchus or lung (6) Fluid overload ICD Code: E87.70 - Fluid overload, unspecified (7) Chest pain ICD Code: R07.9 - Chest pain, unspecified Status: Acute Assessment and Plan Chest pain with fluid overload and hypoxia We will trend troponins Electrocardiogram We will send for hemodialysis Pain medications Oxygen and nebulizers Incentive spirometry Mucinex Consult cardiology Pneumonia/COPD Continue on antibiotics with cefepime and Vancomycin Duo nebs Steroids Mucinex Incentive spirometry End-stage renal disease on hemodialysis Wednesday, , and Wednesday We will send for hemodialysis Consult nephrology GERD continue on home medications Hyperlipidemia continue on home medications Hypertension continue on home medications Lung cancer continue on antibiotics and duo nebs Hypothyroidism we will check thyroid panel and continue on her 100 MCG's of levothyroxine daily Chronic constipation continue on her senna as at home Chest pain consult cardiology trend troponins echocardiogram home medications Continue on duo nebs Patient is a full code GI prophylaxis with home medications DVT prophylaxis with heparin Hypoxia continue on oxygen continue on hemodialysis Monitor for signs of fluid overload Code Status Full code Discussed Condition With ER physician and RN and case management and patient Physician Certification 2 Midnight Certification Type: Admission for Inpatient Services Order for Inpatient Services The services are ordered in accordance with Medicare regulations or non- Medicare payer requirements, as applicable. In the case of services not specified as inpatient-only, they are appropriately provided as inpatient services in accordance with the 2-midnight benchmark. Estimated LOS (days): 3 days is the estimated time the patient will need to remain in the hospital, assuming treatment plan goals are met and no additional complications. Post-Hospital Plan: Not yet determined Problem Qualifiers (1) Chest pain: Qualified Codes: R07.9 - Chest pain, unspecified Dillan Trujillo DO May 25, 2017 15:43
--- NOTE | 2017-05-25 15:47 | PD.CONS ---
[facility] Service Nephrology Consult Requested By Ronnie Reason for Consult ESRD on HD, dialysis management Primary Care Physician No Primary Care Physician History of Present Illness This is an 81 y/o female who came to ER for evaluation and treatment. She has ESRD, in on HD TTS, her last treatment was on Wednesday. She came in for shortness of breath, coughing with some hemoptysis, and found to be hypoxic with oxygen saturations in the 70s despite oxygen therapy. We were consulted to assist with dialysis management. On exam she is not in distress, lung sounds are very coarse. She is currently undergoing HD without complications. No evidence of fluid overload. She had the flu and pneumonia vaccine, has not been around sick contacts. She is a full code. (Milana Sandoval) Review of Systems Constitutional: COMPLAINS OF: Fatigue, DENIES: Fever, Weight gain, Weight loss , Chills, Change in appetite Ears, nose, mouth, throat: COMPLAINS OF: Throat pain, DENIES: Hoarseness, Running Nose Respiratory: COMPLAINS OF: Cough, Wheezing, Hemoptysis, Sputum production, Shortness of breath Cardiovascular: COMPLAINS OF: Chest pain, Dyspnea on Exertion, DENIES: Palpitations, Lower Extremity Edema Musculoskeletal: DENIES: Joint pain, Joint Swelling (Milana Sandoval) Past Family Social History Allergies: Coded Allergies: diatrizoate meglumine (Verified Allergy, Severe, Hives, 05/25/17) gadobenic acid (Verified Allergy, Severe, Hives, 05/25/17) gadodiamide (Verified Allergy, Severe, Hives, 05/25/17) gadoteridol (Verified Allergy, Severe, Hives, 05/25/17) iodixanol (Verified Allergy, Severe, Hives, 05/25/17) iohexol (Verified Allergy, Severe, Hives, 05/25/17) metronidazole (Verified Allergy, Severe, DIFFICULTY BREATHING, EXTREME NAUSEA, VOMITING, 05/25/17) cholestyramine (Verified Adverse Reaction, Intermediate, STOMACH UPSET, 12/02) codeine (Verified Adverse Reaction, Intermediate, UPSET STOMACH, 05/25/17) colesevelam (Verified Adverse Reaction, Intermediate, STOMACH UPSET, ) gemfibrozil (Verified Adverse Reaction, Intermediate, STOMACH UPSET, ) levofloxacin (Verified Adverse Reaction, Intermediate, Nausea/Vomiting, 12/02) patient said it gave her extreme anxiety also. lorazepam (Verified Adverse Reaction, Intermediate, STOMACH UPSET, 05/25/17 ) lovastatin (Verified Adverse Reaction, Intermediate, STOMACH UPSET, ) propoxyphene (Verified Adverse Reaction, Intermediate, UPSET STOMACH, 05/25) Past Medical History End-stage renal disease on HD TTS Lung Cancer, recurrent, to start radiation therapy in upcoming month or two Hypertension Dyslipidemia Diabetes type 2 COPD CHF, EF 60% from Jan 2016 GERD Depression Hypothyroidism anemia Past Surgical History cholecystectomy Left wrist surgery Colon resection hernia repair Lysis of adhesions AVF left arm Reported Medications Oxygen tank (Oxygen) 1 Ea Tank 2 Liter CLEMENTE.CANULA CONTINUOUS Oxygen Concentrator Portable Gaseous 2 L/min via Nasal Cannula Continuous For 99 months Nifedipine ER (Nifedipine) 90 Mg Tab 90 Mg PO DAILY Omeprazole 40 Mg Cap 40 Mg PO DAILY Sucralfate 1 Gm Tab 1 Gm PO TID on empty stomach Losartan (Losartan Potassium) 100 Mg Tab 100 Mg PO DAILY Levothyroxine (Levothyroxine Sodium) 100 Mcg Tab 100 Mcg PO DAILY Flonase Nasal [place] (Fluticasone Nasal [place]) 50 Mcg/Act [place] 2 [place] EACH NARE DAILY PRN Centrum Silver Adult 50+ (Multiple Vitamins W/ Minerals) 1 Tab Tab 1 Tab PO AC LUNCH Senna S (Sennosides-Docusate Sodium) 8.6-50 Mg Tab 4 Tab PO HS Lutein 20 Mg Cap 20 Mg PO DAILY Fluoxetine (Fluoxetine HCl) 20 Mg Tab 20 Mg PO HS Fenofibrate 54 Mg Tab 54 Mg PO AC LUNCH Catapres (Clonidine) 0.2 Mg Tab 0.2 Mg PO Q8HR Atorvastatin (Atorvastatin Calcium) 10 Mg Tab 10 Mg PO HS Calcitriol 0.25 Mcg Cap 0.25 Mcg PO DAILY Aspirin Adult Low Strength (Aspirin) 81 Mg Tabdr 81 Mg PO DAILY Ventolin Hfa 18 GM Inh (Albuterol Sulfate) 90 Mcg/Act Aer 2 Puff INH Q4H PRN Metoprolol Succinate ER 24 HR (Metoprolol Succinate) 25 Mg Tab 25 Mg PO DAILY Active Ordered Medications Current Medications Medications (Trade) Dose Ordered Sig/Raheel Route Start Time Stop Time Status Last Admin (Ecotrin Ec) 81 mg DAILY PO 05/26/17 09:00 (Lipitor) 10 mg HS PO 05/25/17 21:00 (Rocaltrol) 0.25 mcg DAILY PO 05/26/17 09:00 (Catapres) 0.2 mg Q8HR PO 05/25/17 14:00 05/25/17 14:45 (PROzac) 20 mg HS PO 05/25/17 21:00 (Synthroid) 100 mcg DAILY@0600 PO 05/26/17 06:00 (Cozaar) 100 mg DAILY PO 05/26/17 09:00 (Toprol Xl) 25 mg DAILY PO 05/26/17 09:00 (Procardia Xl) 90 mg DAILY PO 05/26/17 09:00 (Irma-Colace) 4 tab HS PO 05/25/17 21:00 (Carafate) 1 gm TID PO 05/25/17 13:00 (Tricor) 48 mg AC LUNCH PO 05/26/17 11:00 (Flonase [place] Spr) 2 spray DAILY PRN EACH NARE 05/25/17 12:45 (Theragran M Tab) 1 tab AC LUNCH PO 05/26/17 11:00 (Protonix) 40 mg DAILY PO 05/26/17 09:00 (Catapres) 0.1 mg Q4H PRN PO 05/25/17 12:45 (NS Flush) 2 ml UNSCH PRN IV FLUSH 05/25/17 12:45 05/25/17 14:42 (NS Flush) 2 ml BID IV FLUSH 05/25/17 21:00 (Tylenol) 650 mg Q4H PRN PO 05/25/17 12:45 (Zofran Inj) 4 mg Q6H PRN IVP 05/25/17 12:45 05/25/17 14:41 (Reglan Inj) 5 mg Q6H PRN IV PUSH 05/25/17 12:45 (Heparin Inj) 5,000 units Q12H SQ 05/25/17 14:00 05/25/17 14:41 (Tylenol) 650 mg Q6H PRN PO 05/25/17 12:45 (Percocet 5-325 Mg) 1 tab Q6H PRN PO 05/25/17 12:45 (Percocet 10-325 Mg) 1 tab Q6H PRN PO 4/10/18 12:45 (Morphine Inj) 2 mg Q3H PRN IV PUSH 05/25/17 12:45 (Morphine Inj) 4 mg Q3H PRN IV PUSH 05/25/17 12:45 05/25/17 14:42 (Narcan Inj) 0.4 mg UNSCH PRN IV PUSH 05/25/17 12:45 (Milk Of Magnesia Liq) 30 ml Q12H PRN PO 05/25/17 12:45 (Senokot) 17.2 mg Q12H PRN PO 05/25/17 12:45 (Dulcolax Supp) 10 mg DAILY PRN RECTAL 05/25/17 12:45 (Lactulose Liq) 30 ml DAILY PRN PO 05/25/17 12:45 (Duoneb Neb) 1 ampule Q6HR NEB INH 05/25/17 16:00 (Duoneb Neb) 1 ampule Q4HR NEB PRN INH 05/25/17 12:45 (SoluMEDROL INJ) 40 mg Q12H IV PUSH 05/25/17 14:00 05/25/17 14:41 (Mucinex Er) 600 mg BID PO 05/25/17 12:45 Sodium Chloride 1,000 ml @ 0 mls/hr Q0M PRN OTHER 05/25/17 15:19 (Heparin Inj) 8,000 units UNSCH PRN IV FLUSH 05/25/17 15:30 Sodium Chloride 1,000 ml @ 200 mls/hr Q5H PRN IV 05/25/17 15:19 Sodium Chloride 1,000 ml @ 0 mls/hr Q0M PRN OTHER 05/25/17 15:19 (Mannitol Inj) 12.5 gm UNSCH PRN IV 05/25/17 15:30 Albumin Human 100 ml @ 60 mls/hr UNSCH PRN IV 05/25/17 15:30 (NS Flush) 5 ml UNSCH PRN IV FLUSH 05/25/17 15:30 (Heparin Inj) UNSCH PRN .XX 05/25/17 15:30 (Gentamicin Inj) 20 mg UNSCH PRN OTHER 05/25/17 15:30 (Zofran Inj) 4 mg UNSCH PRN IV PUSH 05/25/17 15:30 (Tylenol) 650 mg UNSCH PRN PO 05/25/17 15:30 (Benadryl) 25 mg UNSCH PRN PO 05/25/17 15:30 (Nitrostat Sl) 0.4 mg UNSCH PRN SL 05/25/17 15:30 (Catapres) 0.1 mg UNSCH PRN PO 05/25/17 15:30 (Epogen Inj) 7,400 units UNSCH PRN IV PUSH 05/25/17 15:30 (Gelfoam 12 Mm/7 Mm Top) 1 foam UNSCH PRN TOP 05/25/17 15:30 Cefepime HCl 1000 mg/Sodium Chloride 100 ml @ 200 mls/hr Q12H IV 05/25/17 15:30 UNV Vancomycin HCl 1000 mg/Sodium Chloride 250 ml @ 250 mls/hr ONCE ONCE IV 05/25/17 15:30 05/25/17 16:29 UNV Pharmacy Profile Note 0 ml @ 0 mls/hr UNSCH OTHER 05/25/17 15:30 UNV Family History Non contributory Social History , lives locally with spouse former smoker, denies ETOH ambulatory oxygen continuous DNR status (Milana Sandoval) Physical Exam Vital Signs Vital Signs Date Time Temp Pulse Resp B/P (MAP) Pulse Ox O2 Delivery O2 Flow Rate FiO2 05/25/17 14:52 99.2 68 16 96 Nasal Cannula 2.00 05/25/17 10:09 97 Nasal Cannula 2.00 05/25/17 10:09 102.2 79 24 125/96 (106) 97 Nasal Cannula 2.00 05/25/17 10:03 80 Nasal Cannula 2.00 05/25/17 09:53 102.2 84 25 125/96 (106) 71 Room Air 05/25/17 09:47 98.4 81 24 203/84 (123) 77 Physical Exam Elderly female, appears chronically ill, resting on oxygen awake/alert and oriented, no neuro deficit S1/S2, RRR no murmurs lungs with rhonchi and rales throughout, no wheezing or coughing during exam abdomen distended, round, but soft and non tender; normal BS, had BM today ext: no edema; LUE AVF accessed during dialysis. Laboratory Laboratory Tests Test 05/25/17 10:05 05/25/17 14:15 White Blood Count 15.3 Red Blood Count 3.57 Hemoglobin 11.4 Hematocrit 35.6 Mean Corpuscular Volume 99.9 Mean Corpuscular Hemoglobin 32.0 Mean Corpuscular Hemoglobin Concent 32.0 Red Cell Distribution Width 16.0 Platelet Count 149 Mean Platelet Volume 8.0 Neutrophils (%) (Auto) 93.3 Lymphocytes (%) (Auto) 2.1 Monocytes (%) (Auto) 4.2 Eosinophils (%) (Auto) 0.0 Basophils (%) (Auto) 0.4 Neutrophils # (Auto) 14.2 Lymphocytes # (Auto) 0.3 Monocytes # (Auto) 0.6 Eosinophils # (Auto) 0.0 Basophils # (Auto) 0.1 CBC Comment DIFF FINAL Differential Comment Prothrombin Time 10.9 Prothromb Time International Ratio 1.1 Activated Partial Thromboplast Time 23.4 Blood Urea Nitrogen 43 Creatinine 3.56 Random Glucose 88 Total Protein 6.6 Albumin 2.8 Calcium Level 8.3 Alkaline Phosphatase 90 Aspartate Amino Transf (AST/SGOT) 28 Alanine Aminotransferase (ALT/SGPT) 24 Total Bilirubin 0.5 Sodium Level 142 Potassium Level 4.6 Chloride Level 108 Carbon Dioxide Level 23.2 Anion Gap 11 Estimat Glomerular Filtration Rate 12 Lactic Acid Level 0.7 Total Creatine Kinase 32 Troponin I 0.05 Lipase 162 Date/Time Source Procedure Growth Status 05/25/17 10:10 Blood Peripheral Aerobic Blood Culture Pending Received 05/25/17 10:10 Blood Peripheral Anaerobic Blood Culture Pending Received (Milana Sandoval) Result Diagram: 05/25/17 1005 05/25/17 1005 Imaging Last 72 hours Impressions Chest X-Ray 05/25/17 1006 Signed Impressions: Service Date/Time: Thursday, May 25, 2017 10:13 - CONCLUSION: Stable chest x-ray with chronic right upper lobe and left midlung zone airspace consolidation. Te Freeman MD (iMlana Sandoval) Assessment and Plan Problem List: (1) End stage renal disease on dialysis ICD Codes: N18.6 - End stage renal disease; Z99.2 - Dependence on renal dialysis Status: Chronic Plan: HD is typically TTS, is due for treatment today, orders entered AVF is patient Seen during dialysis today on a 2K, 350 BFR, goal 2L Avoid IVF administration High protein, low phosphorus diet recommended if not NPO Obtain intermittent renal profile. Phosphorus level will be obtained in AM (2) Chest pain ICD Codes: R07.9 - Chest pain, unspecified Status: Acute Plan: Elevated troponin in the setting of renal failure cardiology has been consulted (3) Pneumonia ICD Codes: J18.9 - Pneumonia, unspecified organism Plan: Ordered cefepime and vancomycin, solumedrol Chest xray reviewed, has leukocytosis, cultures in progress Oxygen, nebulizers, IS, pulmonary toilet (4) Anemia ICD Codes: D64.9 - Anemia, unspecified Status: Acute Plan: Epogen with dialysis has been ordered (Milana Sandoval) Assessment and Plan patient was seen and examined. Admitted with leukocytosis, shortness of breath and chest pain. Has history of lung cancer. Dialysis today. 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 She has been placed on antibiotics. (Gt Trejo MD) Problem Qualifiers (1) Chest pain: Qualified Codes: R07.9 - Chest pain, unspecified Milana Sandoval May 25, 2017 15:47 Gt Trejo MD May 25, 2017 18:52
[2017-05-25] MEDS: RESP: ALBUTEROL 2.5 MG/IPRATROPIUM 0.5 MG NEB (SCH) INH ×2 (16:00→19:32)
[2017-05-25] MEDS ORDERED: VANCOMYCIN INJ 1,000 MG in SODIUM CHLOR 0.9% 250 ML INJ 250 ML IV ONE (17:00)
[2017-05-25] MEDS: GELATIN 12 MM/7 MM FOAM TOP PRN (18:06)
[2017-05-25] MEDS ORDERED: DOCUSATE SODIUM 50 MG/SENNA 8.6 MG TAB PO SCH (21:00)
[2017-05-25] MEDS: guaiFENesin E.R. 600 MG TAB PO SCH ×2 (21:00→21:59)
[2017-05-25 21:30] LABS: TROPONIN I 0.07 NG/ML (0.02-0.05)
[2017-05-25] MEDS: FLUoxetine HCL 20 MG CAP PO SCH (21:59)
[2017-05-25] MEDS: ATORVASTATIN 10 MG TAB PO SCH (21:59)
[2017-05-25] MEDS: DOCUSATE SODIUM 50 MG/SENNA 8.6 MG TAB PO SCH (22:01)
[2017-05-25] MEDS: SODIUM CHLORIDE 0.9% FLUSH 10 ML FLUSH IV FLUSH SCH (22:01)
[2017-05-25] MEDS: ONDANSETRON HCL 4 MG/2 ML VIAL IV PUSH PRN (22:05)
[2017-05-25 22:37] LABS: BACTERIA, URINE RARE /hpf; BILIRUBIN, URINE SMALL (NEG); BLOOD, URINE SMALL (NEG); GLUCOSE,URINE NEG (NEG); KETONE, URINE NEG (NEG); NITRITE,URINE NEG (NEG); SQUAMOUS EPITHELIAL CELL URINE 2 /hpf (0-5); URINE COLOR DARK-YELLOW (YELLW/STRAW); URINE LEUKOCYTE ESTERASE SMALL (NEG)
[2017-05-26] VITALS (26 sets, daily range): BP systolic 126–162; BP diastolic 46–72; PULSE 54–71; RESP 16–18; TEMP 97.3–98; O2SAT 93–99
[2017-05-26] MEDS: HEPARIN SODIUM - SQ 10,000 UNITS/ML VIAL SQ SCH ×2 (02:50→14:38)
[2017-05-26] MEDS: methylPREDNISolone SOD SUCC 40 MG/1 ML VIAL IV PUSH SCH ×2 (02:50→14:38)
[2017-05-26 02:51] LABS: AUTOMATED NEUTROPHIL # 11.5 TH/MM3 (1.8-7.7); BASOPHIL % 0.3 % (0.0-2.0); HEMATOCRIT 31.5 % (35.0-46.0); HEMOGLOBIN 10.2 GM/DL (11.6-15.3); LYMPH % 4.1 % (9.0-44.0); LYMPHOCYTE # 0.5 TH/MM3 (1.0-4.8); MEAN CELL VOLUME 99.6 FL (80.0-100.0); MEAN CORPUSCULAR HEMOGLOBIN 32.2 PG (27.0-34.0); MEAN CORPUSCULAR HGB CONC 32.3 % (32.0-36.0); MEAN PLATELET VOLUME 7.7 FL (7.0-11.0); MONO % 7.8 % (0.0-8.0); NEUT % 87.8 % (16.0-70.0); PLATELET COUNT 107 TH/MM3 (150-450); RED BLOOD COUNT 3.16 MIL/MM3 (4.00-5.30); WHITE BLOOD COUNT 13.1 TH/MM3 (4.0-11.0)
[2017-05-26 03:21] LABS: ALBUMIN 2.5 GM/DL (3.4-5.0); ALKALINE PHOSPHATASE 68 U/L (45-117); ALT (GPT) 19 U/L (10-53); AST (GOT) 15 U/L (15-37); BICARBONATE 34.4 MEQ/L (21.0-32.0); BLOOD UREA NITROGEN 28 MG/DL (7-18); CALCIUM 8.3 MG/DL (8.5-10.1); CHLORIDE 101 MEQ/L (98-107); CREATININE 2.52 MG/DL (0.50-1.00); FREE T4 1.29 NG/DL (0.76-1.46); GLOMERULAR FILTRATION RATE 18 ML/MIN (>89); GLUCOSE,RANDOM 115 MG/DL (74-106); MAGNESIUM 1.7 MG/DL (1.5-2.5); PHOSPHORUS 3.9 MG/DL (2.5-4.9); SODIUM (NA) 142 MEQ/L (136-145); TOTAL BILIRUBIN ADULT 0.5 MG/DL (0.2-1.0); TOTAL PROTEIN 5.9 GM/DL (6.4-8.2); TROPONIN I 0.06 NG/ML (0.02-0.05)
[2017-05-26] MEDS: RESP: ALBUTEROL 2.5 MG/IPRATROPIUM 0.5 MG NEB (SCH) INH ×4 (03:47→22:30)
[2017-05-26] MEDS: LEVOTHYROXINE SODIUM 100 MCG TAB PO SCH (05:43)
[2017-05-26] MEDS: cloNIDine HCL 0.2 MG TAB PO SCH ×3 (05:43→21:30)
[2017-05-26] MEDS: ONDANSETRON HCL 4 MG/2 ML VIAL IV PUSH PRN (06:12)
[2017-05-26] MEDS ORDERED: CALCITRIOL 0.25 MCG CAP PO SCH (09:00)
[2017-05-26] MEDS ORDERED: NON-FORMULARY DRUG (Lutein 20 MG) PO SCH (09:00)
[2017-05-26] MEDS: MULTIVITAMINS/MINERALS THERAPEUTIC TAB PO SCH (09:30)
[2017-05-26] MEDS: SODIUM CHLORIDE 0.9% FLUSH 10 ML FLUSH IV FLUSH SCH ×2 (09:42→21:30)
[2017-05-26] MEDS: ASPIRIN EC 81 MG TABEC PO SCH (09:43)
[2017-05-26] MEDS: PANTOPRAZOLE SOD 40 MG DELAYED RELEASE TAB PO SCH (09:44)
[2017-05-26] MEDS: LOSARTAN 50 MG TAB PO SCH (09:44)
[2017-05-26] MEDS: FENOFIBRATE 48 MG TAB PO SCH (09:44)
[2017-05-26] MEDS: NIFEdipine 90 MG SUSTAINED RELEASE TAB PO SCH (09:45)
[2017-05-26] MEDS: METOPROLOL SUCCINATE 25 MG EXTENDED RELEASE TAB PO SCH (09:45)
[2017-05-26] MEDS: guaiFENesin E.R. 600 MG TAB PO SCH ×2 (09:45→21:30)
[2017-05-26] MEDS: MORPHINE SULFATE 2 MG/ML SYRINGE IV PUSH PRN ×2 (09:48→15:57)
--- NOTE | 2017-05-26 10:30 | HHI.NPPN ---
Subjective General Problems: Anemia Renal Failure: Chronic, End Stage Renal Disease Interval History Sitting on edge of bed. Respirations unlabored. Dialyzed without incident. (Milana Sandoval) Objective Data Data Vital Signs Date Time Temp Pulse Resp B/P (MAP) Pulse Ox O2 Delivery O2 Flow Rate FiO2 05/26/17 07:00 97.8 55 18 126/53 (77) 96 05/26/17 06:00 61 05/26/17 05:00 58 05/26/17 04:00 59 05/26/17 04:00 97.6 61 18 129/46 (73) 96 05/26/17 03:00 58 05/26/17 02:00 62 05/26/17 01:00 62 05/26/17 00:00 61 05/26/17 00:00 98.0 69 18 156/67 (96) 96 05/25/17 23:00 66 05/25/17 22:00 66 05/25/17 21:00 74 05/25/17 20:00 70 05/25/17 20:00 98.1 66 18 146/48 (80) 99 05/25/17 19:35 96 Nasal Cannula 2.00 05/25/17 17:09 05/25/17 14:52 99.2 68 16 96 Nasal Cannula 2.00 (Milana Sandoval) -: 05/26/17 0236 05/26/17 0236 Microbiology 05/25/17 Urine Culture, Received Pending Imaging Last 72 hours Impressions Chest X-Ray 05/25/17 1006 Signed Impressions: Service Date/Time: Thursday, May 25, 2017 10:13 - CONCLUSION: Stable chest x-ray with chronic right upper lobe and left midlung zone airspace consolidation. Te Freeman MD (Milana Sandoval) Physical Exam General Appearance: Well Developed, No Acute Distress, Comfortable, Malnourished (Milana Sandoval) Throat Throat Exam: Oral Mucosa [place] & Moist (Milana Sandoval) Pulmonary Resp Exam: Crackles, Rhonchi, Sputum, Decreased Bases (Milana Sandoval) Cardiology CV Exam: Normal Sinus Rhythm, Good Perfusion (Milana Sandoval) Gastrointestinal/Abdomen GI Exam: Soft, Non-Tender (Milana Sandoval) Musculoskeletal MS Exam: Normal Tone, Good Strength (Milana Sandoval) Integumentary Skin Exam: Warm, Dry, Intact (Milana Sandoval) Extremeties Extremities Exam: No Edema, Pedal Pulses Palpable (Milana Sandoval) Neurologic Neuro Exam: Alert, Awake, Oriented, Speech Clear, Moving All Extremities (Milana Sandoval) Psychiatric Psych Exam: Appropriate Responses (Milana Sandoval) Assessment/Plan Discussed Condition With: Patient Assessment Summary: Anemia of CKD, Hypertension, End Stage Renal Disease Problem List: (1) End stage renal disease on dialysis ICD Codes: N18.6 - End stage renal disease; Z99.2 - Dependence on renal dialysis Status: Chronic Plan: Continue HD support TTS 1.8 L UF yesterday AVF is patent Avoid IVF administration High protein, low phosphorus diet recommended if not NPO Obtain intermittent renal profile. (2) Chest pain ICD Codes: R07.9 - Chest pain, unspecified Status: Acute Plan: Elevated troponin in the setting of renal failure pending cardiology evaluation (3) Pneumonia ICD Codes: J18.9 - Pneumonia, unspecified organism Plan: On cefepime and vancomycin, solumedrol Chest xray reviewed, has leukocytosis, cultures in progress Oxygen, nebulizers, IS, pulmonary toilet (4) Anemia ICD Codes: D64.9 - Anemia, unspecified Status: Acute Plan: Epogen with dialysis (Milana Sandoval) Plan patient was seen and examined. Feels slightly better today. Continue supportive care. Agree with above assessment and plan. (Gt Trejo MD) Problem Qualifiers (1) Chest pain: Qualified Codes: R07.9 - Chest pain, unspecified Milana Sandoval May 26, 2017 10:30 Gt Trejo MD May 26, 2017 21:41
[2017-05-26] MEDS: CEFEPIME INJ 1,000 MG in SODIUM CHLORIDE 0.9% INJ 100 ML IV SCH (12:01)
--- NOTE | 2017-05-26 12:31 | HHI.PR ---
Subjective Remarks Patient is a 81-year-old female who has a history of lung cancer and end-stage renal disease on hemodialysis Wednesday, , and Wednesday. As well as hypertension and hypercholesterolemia and hypothyroidism and congestive heart failure and lung cancer who presents to the emergency department for chest pain for the past 3 days associated with a productive cough having more difficulty breathing as well as midsternal radiating towards the back she describes as 9 out of 10 intensity she wears oxygen at home and is only saturating in the 77% on a couple liters. Therefore the patient will be admitted for hypoxia and treatment of her COPD/bronchitis as well as her end-stage renal disease on hemodialysis and chest pain more than likely due to her lung cancer 05-[address] HANSEL BOOGIE RN AND PT AND FAMILY HAD HD YESTERDAY STILL REQUIRING OXYGEN CONSULT ONCOLOGY CONSULT PULMONARY INCREASE ACTIVITY WILL PROBABLY NEED OXYGEN AROUND THE CLOCK AND NOT JUST AT NIGHT SINCE SHE DESATURATES INTO THE 70S WHEN NOT ON OXYGEN Objective Vitals Vital Signs Date Time Temp Pulse Resp B/P (MAP) Pulse Ox O2 Delivery O2 Flow Rate FiO2 05/26/17 10:47 98 Nasal Cannula 2.00 05/26/17 10:30 18 05/26/17 07:00 97.8 55 18 126/53 (77) 96 05/26/17 06:50 60 05/26/17 06:00 61 05/26/17 05:00 58 05/26/17 04:00 59 05/26/17 04:00 97.6 61 18 129/46 (73) 96 05/26/17 03:00 58 05/26/17 02:00 62 05/26/17 01:00 62 05/26/17 00:00 61 05/26/17 00:00 98.0 69 18 156/67 (96) 96 05/25/17 23:00 66 05/25/17 22:00 66 05/25/17 21:00 74 05/25/17 20:00 70 05/25/17 20:00 98.1 66 18 146/48 (80) 99 05/25/17 19:35 96 Nasal Cannula 2.00 05/25/17 17:09 05/25/17 14:52 99.2 68 16 96 Nasal Cannula 2.00 I/O 4/10/18 4/10/05/25/17 05/26/17 05/26/17 05/26/17 07:00 15:00 23:00 07:00 15:00 23:00 Intake Total 100 ml 480 ml 250 ml Output Total 1800 ml Balance -1700 ml 480 ml 250 ml Intake Oral 480 ml IV Total 100 ml 250 ml Output Hemodialysis 1800 ml # Voids 2 Result Diagram: 05/26/17 0236 05/26/17 0236 Other Results Laboratory Tests Test 05/25/17 10:05 05/25/17 14:15 05/25/17 20:36 05/25/17 21:30 White Blood Count 15.3 TH/MM3 Red Blood Count 3.57 MIL/MM3 Hemoglobin 11.4 GM/DL Hematocrit 35.6 % Mean Corpuscular Volume 99.9 FL Mean Corpuscular Hemoglobin 32.0 PG Mean Corpuscular Hemoglobin Concent 32.0 % Red Cell Distribution Width 16.0 % Platelet Count 149 TH/MM3 Mean Platelet Volume 8.0 FL Neutrophils (%) (Auto) 93.3 % Lymphocytes (%) (Auto) 2.1 % Monocytes (%) (Auto) 4.2 % Eosinophils (%) (Auto) 0.0 % Basophils (%) (Auto) 0.4 % Neutrophils # (Auto) 14.2 TH/MM3 Lymphocytes # (Auto) 0.3 TH/MM3 Monocytes # (Auto) 0.6 TH/MM3 Eosinophils # (Auto) 0.0 TH/MM3 Basophils # (Auto) 0.1 TH/MM3 CBC Comment DIFF FINAL Differential Comment Prothrombin Time 10.9 SEC Prothromb Time International Ratio 1.1 RATIO Activated Partial Thromboplast Time 23.4 SEC Blood Urea Nitrogen 43 MG/DL Creatinine 3.56 MG/DL Random Glucose 88 MG/DL Total Protein 6.6 GM/DL Albumin 2.8 GM/DL Calcium Level 8.3 MG/DL Alkaline Phosphatase 90 U/L Aspartate Amino Transf (AST/SGOT) 28 U/L Alanine Aminotransferase (ALT/SGPT) 24 U/L Total Bilirubin 0.5 MG/DL Sodium Level 142 MEQ/L Potassium Level 4.6 MEQ/L Chloride Level 108 MEQ/L Carbon Dioxide Level 23.2 MEQ/L Anion Gap 11 MEQ/L Estimat Glomerular Filtration Rate 12 ML/MIN Lactic Acid Level 0.7 mmol/L Total Creatine Kinase 32 U/L 18 U/L 21 U/L Troponin I 0.05 NG/ML 0.06 NG/ML 0.07 NG/ML Lipase 162 U/L Urine Color DARK-YELLOW Urine Turbidity HAZY Urine pH 6.0 Urine Specific Jay 1.021 Urine Protein 300 mg/dL Urine Glucose (UA) NEG mg/dL Urine Ketones NEG mg/dL Urine Occult Blood SMALL Urine Nitrite NEG Urine Bilirubin SMALL Urine Urobilinogen LESS THAN 2.0 MG/DL Urine Leukocyte Esterase SMALL Urine RBC 173 /hpf Urine WBC 6 /hpf Urine Squamous Epithelial Cells 2 /hpf Urine Bacteria RARE /hpf Microscopic Urinalysis Comment CULTURE INDICATED Test 05/26/17 02:36 White Blood Count 13.1 TH/MM3 Red Blood Count 3.16 MIL/MM3 Hemoglobin 10.2 GM/DL Hematocrit 31.5 % Mean Corpuscular Volume 99.6 FL Mean Corpuscular Hemoglobin 32.2 PG Mean Corpuscular Hemoglobin Concent 32.3 % Red Cell Distribution Width 16.0 % Platelet Count 107 TH/MM3 Mean Platelet Volume 7.7 FL Neutrophils (%) (Auto) 87.8 % Lymphocytes (%) (Auto) 4.1 % Monocytes (%) (Auto) 7.8 % Eosinophils (%) (Auto) 0.0 % Basophils (%) (Auto) 0.3 % Neutrophils # (Auto) 11.5 TH/MM3 Lymphocytes # (Auto) 0.5 TH/MM3 Monocytes # (Auto) 1.0 TH/MM3 Eosinophils # (Auto) 0.0 TH/MM3 Basophils # (Auto) 0.0 TH/MM3 CBC Comment DIFF FINAL Differential Comment Blood Urea Nitrogen 28 MG/DL Creatinine 2.52 MG/DL Random Glucose 115 MG/DL Total Protein 5.9 GM/DL Albumin 2.5 GM/DL Calcium Level 8.3 MG/DL Phosphorus Level 3.9 MG/DL Magnesium Level 1.7 MG/DL Alkaline Phosphatase 68 U/L Aspartate Amino Transf (AST/SGOT) 15 U/L Alanine Aminotransferase (ALT/SGPT) 19 U/L Total Bilirubin 0.5 MG/DL Sodium Level 142 MEQ/L Potassium Level 4.1 MEQ/L Chloride Level 101 MEQ/L Carbon Dioxide Level 34.4 MEQ/L Anion Gap 7 MEQ/L Estimat Glomerular Filtration Rate 18 ML/MIN Total Creatine Kinase 18 U/L Troponin I 0.06 NG/ML Free Thyroxine 1.29 NG/DL Thyroid Stimulating Hormone 3rd Gen 0.653 uIU/ML Imaging Last Impressions Chest X-Ray 05/25/17 1006 Signed Impressions: Service Date/Time: Thursday, May 25, 2017 10:13 - CONCLUSION: Stable chest x-ray with chronic right upper lobe and left midlung zone airspace consolidation. Te Freeman MD Objective Remarks GENERAL: This is a well-nourished, well-developed patient, in no apparent distress. SKIN: No rashes, ecchymoses or lesions. Cool and dry. HEAD: Atraumatic. Normocephalic. No temporal or scalp tenderness. EYES: Pupils equal round and reactive. Extraocular motions intact. No scleral icterus. No injection or drainage. ENT: Nose without bleeding, purulent drainage or septal hematoma. Throat without erythema, tonsillar hypertrophy or exudate. Uvula midline. Airway patent. NECK: Trachea midline. No JVD or lymphadenopathy. Supple, nontender, no meningeal signs. CARDIOVASCULAR: Regular rate and rhythm without murmurs, gallops, or rubs. S1- S2 no S3 or S4 RESPIRATORY: Breath sounds equal bilaterally. Positive rhonchi and wheezes bilateral lung werner coarse breath sounds on the right side GASTROINTESTINAL: Abdomen soft, non-tender, nondistended. No hepato-splenomegaly , or palpable masses. No guarding. MUSCULOSKELETAL: Extremities without clubbing, cyanosis, or edema. No joint tenderness, effusion, or edema noted. No calf tenderness. Negative Homans sign bilaterally. NEUROLOGICAL: Awake and alert. Cranial nerves II through XII intact. Motor and sensory grossly within normal limits. 4 out of 5 muscle strength in all muscle groups. Normal speech. Insight and judgment is somewhat inappropriate Mood and behaviors appropriate Procedures HD Medications and IVs Current Medications Acetaminophen (Tylenol) 650 mg ONCE ONCE PO Last administered on 05/25/17at 10: 47; Start 05/25/17 at 10:30; Stop 05/25/17 at 10:31; Status DC Morphine Sulfate (Morphine Inj) 4 mg ONCE ONCE IV PUSH Last administered on 12/02at 10:46; Start 05/25/17 at 10:30; Stop 05/25/17 at 10:31; Status DC Ondansetron HCl (Zofran Inj) 4 mg ONCE ONCE IV PUSH Last administered on at 10:46; Start 05/25/17 at 10:30; Stop 05/25/17 at 10:31; Status DC Cefepime HCl 1000 mg/Sodium Chloride 100 ml @ 200 mls/hr ONCE ONCE IV Last administered on 05/25/17at 10:46; Start 05/25/17 at 10:30; Stop 05/25/17 at 10:59 ; Status DC Aspirin (Ecotrin Ec) 81 mg DAILY PO Last administered on 05/26/17 09:43; Start 05/26/17 at 09:00 Atorvastatin Calcium (Lipitor) 10 mg HS PO Last administered on 05/25/17 21:59 ; Start 05/25/17 at 21:00 Calcitriol (Rocaltrol) 0.25 mcg DAILY PO Last administered on 05/26/17 09:45; Start 05/26/17 at 09:00 Clonidine (Catapres) 0.2 mg Q8HR PO Last administered on 05/26/17 05:43; Start 05/25/17 at 14:00 Fluoxetine HCl (PROzac) 20 mg HS PO Last administered on 05/25/17 21:59; Start 05/25/17 at 21:00 Levothyroxine Sodium (Synthroid) 100 mcg DAILY@0600 PO Last administered on 05:43; Start 05/26/17 at 06:00 Losartan Potassium (Cozaar) 100 mg DAILY PO Last administered on 05/26/17 09: 44; Start 05/26/17 at 09:00 Metoprolol Succinate (Toprol Xl) 25 mg DAILY PO Last administered on 05/26/17 09:45; Start 05/26/17 at 09:00 Nifedipine (Procardia Xl) 90 mg DAILY PO Last administered on 05/26/17 09:45; Start 05/26/17 at 09:00 Senna/Docusate Sodium (Irma-Colace) 4 tab HS PO Last administered on 05/25/17at 22:01; Start 05/25/17 at 21:00 Sucralfate (Carafate) 1 gm TID PO ; Start 05/25/17 at 13:00; Stop 05/25/17 at 18 :51; Status DC Fenofibrate (Tricor) 48 mg AC LUNCH PO Last administered on 4/11/18at 09:44; Start 05/26/17 at 11:00 Fluticasone Propionate (Flonase Jean Paul Spr) 2 spray DAILY PRN EACH NARE ALLERGIES ; Start 05/25/17 at 12:45 Non-Formulary Medication 20 mg DAILY PO ; Start 05/26/17 at 09:00; Stop at 09:00; Status DC Multivitamins/ Minerals Therapeutic (Theragran M Tab) 1 tab AC LUNCH PO Last administered on 05/26/17at 09:30; Start 05/26/17 at 11:00 Pantoprazole Sodium (Protonix) 40 mg DAILY PO Last administered on 05/26/17at 09 :44; Start 05/26/17 at 09:00 Clonidine (Catapres) 0.1 mg Q4H PRN PO SBP>160, DBP>90; Start 05/25/17 at 12:45 Sodium Chloride (NS Flush) 2 ml UNSCH PRN IV FLUSH FLUSH AFTER USING IV ACCESS Last administered on 05/25/17at 14:42; Start 05/25/17 at 12:45 Sodium Chloride (NS Flush) 2 ml BID IV FLUSH Last administered on 05/26/17at 09: 42; Start 05/25/17 at 21:00 Acetaminophen (Tylenol) 650 mg Q4H PRN PO TEMP > 100.4; Start 05/25/17 at 12:45 Ondansetron HCl (Zofran Inj) 4 mg Q6H PRN IVP NAUSEA OR VOMITING Last administered on 05/25/17at 14:41; Start 05/25/17 at 12:45 Metoclopramide HCl (Reglan Inj) 5 mg Q6H PRN IV PUSH NAUSEA OR VOMITING; Start 05/25/17 at 12:45 Heparin Sodium (Porcine) (Heparin Inj) 5,000 units Q12H SQ Last administered on 05/26/17at 02:50; Start 05/25/17 at 14:00 Acetaminophen (Tylenol) 650 mg Q6H PRN PO PAIN SCALE 1 TO 2; Start 05/25/17 at 12:45 Oxycodone/ Acetaminophen (Percocet 5-325 Mg) 1 tab Q6H PRN PO PAIN SCALE 3 TO 5; Start 05/25/17 at 12:45 Oxycodone/ Acetaminophen (Percocet 10-325 Mg) 1 tab Q6H PRN PO PAIN SCALE 6 TO 10; Start 05/25/17 at 12:45 Morphine Sulfate (Morphine Inj) 2 mg Q3H PRN IV PUSH Pain 3-5; if unable to take PO Last administered on 05/26/17at 09:48; Start 05/25/17 at 12:45 Morphine Sulfate (Morphine Inj) 4 mg Q3H PRN IV PUSH Pain 6-10;if unable to take PO Last administered on 05/25/17at 14:42; Start 05/25/17 at 12:45 Naloxone HCl (Narcan Inj) 0.4 mg UNSCH PRN IV PUSH SEE LABEL COMMENTS; Start at 12:45 Senna/Docusate Sodium (Irma-Colace) 1 tab BID PO ; Start 05/25/17 at 21:00; Stop 05/25/17 at 21:00; Status DC Magnesium Hydroxide (Milk Of Magnesia Liq) 30 ml Q12H PRN PO Mild constipation ; Start 05/25/17 at 12:45 Sennosides (Senokot) 17.2 mg Q12H PRN PO Moderate constipation; Start 05/25/17 at 12:45 Bisacodyl (Dulcolax Supp) 10 mg DAILY PRN RECTAL SEVERE CONSITIPATION; Start at 12:45 Lactulose (Lactulose Liq) 30 ml DAILY PRN PO SEVERE CONSITIPATION; Start at 12:45 Albuterol/ Ipratropium (Duoneb Neb) 1 ampule Q6HR NEB INH Last administered on 05/26/17at 10:43; Start 05/25/17 at 16:00 Albuterol/ Ipratropium (Duoneb Neb) 1 ampule Q4HR NEB PRN INH SHORTNESS OF BREATH; Start 05/25/17 at 12:45 Methylprednisolone Sodium Succinate (SoluMEDROL INJ) 40 mg Q12H IV PUSH Last administered on 05/26/17at 02:50; Start 05/25/17 at 14:00 Guaifenesin (Mucinex Er) 600 mg BID PO Last administered on 05/26/17at 09:45; Start 05/25/17 at 12:45 Sodium Chloride 1,000 ml @ 0 mls/hr Q0M PRN OTHER For Prime & Rinse Back; Start 05/25/17 at 15:19 Heparin Sodium (Porcine) (Heparin Inj) 8,000 units UNSCH PRN IV FLUSH WITH DIALYSIS; Start 05/25/17 at 15:30 Sodium Chloride 1,000 ml @ 200 mls/hr Q5H PRN IV WITH DIALYSIS; Start 05/25/17 at 15:19 Sodium Chloride 1,000 ml @ 0 mls/hr Q0M PRN OTHER WITH DIALYSIS; Start at 15:19 Mannitol (Mannitol Inj) 12.5 gm UNSCH PRN IV WITH DIALYSIS; Start 05/25/17 at 15:30 Albumin Human 100 ml @ 60 mls/hr UNSCH PRN IV WITH DIALYSIS; Start 05/25/17 at 15:30 Sodium Chloride (NS Flush) 5 ml UNSCH PRN IV FLUSH WITH DIALYSIS; Start at 15:30 Heparin Sodium (Porcine) (Heparin Inj) UNSCH PRN .XX WITH DIALYSIS; Start 12/02 at 15:30 Gentamicin Sulfate (Gentamicin Inj) 20 mg UNSCH PRN OTHER WITH DIALYSIS; Start 05/25/17 at 15:30 Ondansetron HCl (Zofran Inj) 4 mg UNSCH PRN IV PUSH WITH DIALYSIS Last administered on 05/26/17at 06:12; Start 05/25/17 at 15:30 Acetaminophen (Tylenol) 650 mg UNSCH PRN PO for headach, pain, temp > 101F; Start 05/25/17 at 15:30 Diphenhydramine HCl (Benadryl) 25 mg UNSCH PRN PO for hives/itching/anaphylaxis ; Start 05/25/17 at 15:30 Nitroglycerin (Nitrostat Sl) 0.4 mg UNSCH PRN SL CHEST PAIN; Start 05/25/17 at 15:30 Clonidine (Catapres) 0.1 mg UNSCH PRN PO for BP > 180/100 X 2 readings; Start 05/25/17 at 15:30 Epoetin Rohan (Epogen Inj) 7,400 units UNSCH PRN IV PUSH WITH DIALYSIS; Start at 15:30; Stop 05/25/17 at 15:40; Status DC Gelatin (Gelfoam 12 Mm/7 Mm Top) 1 foam UNSCH PRN TOP SEE LABEL COMMENTS Last administered on 05/25/17at 18:06; Start 05/25/17 at 15:30 Cefepime HCl 1000 mg/Sodium Chloride 100 ml @ 200 mls/hr Q24H IV Last administered on 05/26/17at 12:01; Start 05/26/17 at 10:00 Vancomycin HCl 1000 mg/Sodium Chloride 250 ml @ 250 mls/hr ONCE ONCE IV Last administered on 05/25/17at 21:58; Start 05/25/17 at 17:00; Stop 05/25/17 at 17:59 ; Status DC Pharmacy Profile Note 0 ml @ 0 mls/hr UNSCH OTHER ; Start 05/25/17 at 15:30 Epoetin Rohan (Epogen Inj) 8,000 units UNSCH PRN IV PUSH WITH DIALYSIS Last administered on 05/25/17at 18:06; Start 05/25/17 at 15:45 A/P Problem List: (1) PNA (pneumonia) ICD Code: J18.9 - Pneumonia, unspecified organism Status: Acute (2) End stage renal disease on dialysis ICD Code: N18.6 - End stage renal disease; Z99.2 - Dependence on renal dialysis Status: Chronic (3) COPD exacerbation ICD Code: J44.1 - Chronic obstructive pulmonary disease with (acute) exacerbation Status: Acute (4) Accelerated hypertension ICD Code: I10 - Essential (primary) hypertension Status: Acute (5) Lung cancer ICD Code: C34.90 - Malignant neoplasm of unspecified part of unspecified bronchus or lung (6) Fluid overload ICD Code: E87.70 - Fluid overload, unspecified (7) Chest pain ICD Code: R07.9 - Chest pain, unspecified Status: Acute Assessment and Plan Chest pain with fluid overload and hypoxia We will trend troponins Electrocardiogram We will send for hemodialysis Pain medications Oxygen and nebulizers Incentive spirometry Mucinex Consult cardiology Pneumonia/COPD Continue on antibiotics with cefepime and Vancomycin Duo nebs Steroids Mucinex Incentive spirometry Consult Dr. FCO EAGLE End-stage renal disease on hemodialysis Wednesday, , and Wednesday We will send for hemodialysis Consult nephrology GERD continue on home medications Hyperlipidemia continue on home medications Hypertension continue on home medications Lung cancer continue on antibiotics and duo nebs Consult oncology Hypothyroidism we will check thyroid panel and continue on her 100 MCG's of levothyroxine daily Chronic constipation continue on her senna as at home Chest pain consult cardiology trend troponins echocardiogram home medications Continue on duo nebs Patient is a full code GI prophylaxis with home medications DVT prophylaxis with heparin Hypoxia continue on oxygen continue on hemodialysis Monitor for signs of fluid overload Will probably need oxygen [id number] at home Discharge Planning Pending clearance by all consult Problem Qualifiers (1) Chest pain: Qualified Codes: R07.9 - Chest pain, unspecified Dillan Trujillo DO May 26, 2017 12:31
[2017-05-26 17:24] LABS: HEMOGLOBIN A1C 4.7 % (4.3-6.0)
--- NOTE | 2017-05-26 18:31 | MB ---
cc: Edmundo Gonsalez MD, Boon Y MD DATE: 05/26/2017 ATTENDING PHYSICIAN: Dr. Trujillo REASON FOR CONSULTATION: Oncology is consulted to render an opinion in a patient with lung cancer admitted with hypoxemia. HISTORY OF PRESENT ILLNESS: The patient is a very pleasant 81-year-old female with a history of non-small cell lung cancer as well as end-stage renal disease who presented to the hospital with a complaint of increased shortness of breath and chest pain. I saw the patient in clinic a week ago and at that time she was quite asymptomatic. She stated about 4 or 5 days ago, she started having midsternal pain that radiates up to her left shoulder. States the pain is sharp and is constant. She also has increased cough, bringing up some reddish sputum. She reportedly has O2 saturation around 77% even while on oxygen. She had a subjective fever. Denies any chills. She had nausea without vomiting. She denies abdominal pain, no diarrhea. Denies dysuria or hematuria. PAST MEDICAL HISTORY: 1. Non-small cell lung carcinoma. 2. End-stage renal disease. 3. Hypertension. 4. Hyperlipidemia. 5. Congestive heart failure. 6. Hypothyroidism. 7. Osteoarthritis. 8. Chronic obstructive pulmonary disease. 9. Gastroesophageal reflux disease. 10. Diverticulitis. PAST SURGICAL HISTORY: Bilateral tubal ligation, cholecystectomy, colon resection, appendectomy, AV shunt, left wrist surgery, right inguinal hernia repair, right breast biopsy, lung biopsy and thyroidectomy. FAMILY HISTORY: Mother had breast cancer. A sister had lung cancer, a brother had mesothelioma. Father had lung cancer and 1 daughter had breast cancer. SOCIAL HISTORY: Smoked 1/2 a pack a day for ____ years, quit about 12 years ago. Denies alcohol use. ALLERGIES: MULTIPLE ALLERGIES DOCUMENTED ON CHART. MEDICATIONS: 1. Tricor. 2. Multivitamin. 3. Cefepime. 4. Aspirin. 5. Calcitriol. 6. Losartan. 7. Metoprolol. 8. Nifedipine. 9. Protonix. 10. Levothyroxine. 11. Atorvastatin. 12. Fluoxetine. 13. Irma-Colace. 14. Duo Nebs. 15. Clonidine. 16. Heparin. 17. Methylprednisolone. 18. Mucinex. REVIEW OF SYSTEMS: CONSTITUTIONAL: As above. EYES: She is legally blind. HEENT: Atraumatic, normocephalic. Pupils are equal, round, reactive to light. Oropharynx: Dry mucosa. NECK: No thyromegaly. No palpable mass. LYMPHATIC: No palpable cervical, clavicular, axillary or inguinal lymph node. CARDIOVASCULAR: Regular S1, S2. No murmur. LUNGS: Diffuse crackles and wheezing. ABDOMEN: Soft, nontender. Could not palpate liver or spleen. EXTREMITIES: No cyanosis. No significant edema. BACK: No paravertebral tenderness. SKIN: No rash or petechiae. NEUROLOGIC: Nonfocal. LABORATORY DATA: WBC 13.1, hemoglobin 10.2 and platelet count 107. ASSESSMENT: 1. Non-small cell lung carcinoma. She had multiple masses in bilateral lungs. Biopsy showed adenocarcinoma. She received stereotactic radiation to 2 lesions in the left lung and 1 on the right. Her PET scan 09/2016 showed post-radiation changes in bilateral lungs. A CT scan in March showed a diffuse consolidation in the right upper lobe, but they appeared to be more consolidated. She has a repeat PET scan again 04/28, which showed increased hypermetabolic uptake in the left hilar area suspicious for recurrent disease. There was also hypermetabolic activity in right upper lobe with corresponding consolidation, but appeared to be stable and likely radiation changes. I referred her to see Dr. Giron to consider further radiation. When I saw her last week, she was quite asymptomatic. She has now developed chest pain, shortness of breath and cough productive of reddish sputum, which may be a pneumonia or bronchitis. She was started on antibiotics. Her symptoms have improved. We will have her get a CT of the chest without contrast for further evaluation. 2. End-stage renal disease, on dialysis. 3. 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 Hemoglobin is relatively stable. She is receiving Epogen with dialysis. 4. History of congestive heart failure. PLAN: 1. Discussed with the patient and her . 2. Get CT of the chest without contrast. 3. Continue antibiotic per primary team. 4. Continue supportive care. Thank you, Dr. Trujillo, for asking me to see this patient. MD HOMERO Murrell//rh , 05:01 PM , 05:35 PM TYLER
--- NOTE | 2017-05-26 19:39 | MB ---
cc: Ciarra Lafleur MD DATE: 05/26/2017 REASON FOR CONSULTATION: COPD, lung cancer and hemoptysis. HISTORY OF PRESENT ILLNESS: Ms. Calderon is an 81-year-old female who comes to the emergency room complaining of a 4-day history of substernal chest pain radiating to right arm, increasing shortness of breath, cough, expectoration of thick reddish mucoid sputum. Denies history of fever or chills. Her oxygen saturation upon presentation was in the 70s. Presently on oxygen therapy with resolution of her chest pain. She has known history of adenocarcinoma of the lung, for which she had radiation therapy and is followed by Dr. Edmundo Gonsalez from an oncologic standpoint. PAST MEDICAL HISTORY: That of adenocarcinoma of the lung, end-stage renal disease, hypertension, hyperlipidemia, congestive heart failure, hypothyroidism, on replacement therapy, COPD, on bronchodilator therapy, acid reflux disease. She had history of tubal ligation, cholecystectomy, right breast biopsy, AV shunt placement, appendectomy years ago. MEDICATIONS: Include losartan, Calciferol, aspirin, metoprolol, nifedipine, Protonix, levothyroxine, atorvastatin, fluoxetine, nebulized albuterol and ipratropium, presently on intravenous Solu-Medrol and cefepime. She is on Mucinex, TriCor, and vitamin tablet at home. ALLERGIES: NUMEROUS INCLUDING DIATRIZOATE, GADOBENIC, IODIXANOL, CHOLESTYRAMINE, METRONIDAZOLE, CODEINE, COLESEVELAM, GEMFIBROZIL, LEVOFLOXACIN, LORAZEPAM, LOVASTATIN AND PROPOXYPHENE. FAMILY HISTORY: Mother of breast cancer. Sister with history of lung cancer, brother mesothelioma. Father of lung cancer. Daughter with breast cancer. SOCIAL HISTORY: Long heavy smoking history, stopped about 10 years ago. Does not drink any alcohol, does not use drugs. SYSTEMS REVIEW: A 12-point review of systems as per HPI and past history, otherwise negative. PHYSICAL EXAMINATION: GENERAL: The patient is alert. VITAL SIGNS: Temperature 98, pulse 80, respirations 18, blood pressure 130/70. HEENT: Unremarkable. Eyes without icterus. NECK: Without adenopathy, thyroid enlargement. Trachea central. CHEST: Few scattered rhonchi bilaterally. CARDIAC: PMI not appreciated. S1, S2 audible. No murmur. No rub. ABDOMEN: Lax, audible bowel sounds. PSYCHIATRIC: No clubbing, cyanosis or edema. IMPRESSION: 1. Chest x-ray, bilateral lung infiltrates, at least in part, chronic. 2. Adenocarcinoma of the lung. 3. End-stage renal disease, on maintenance hemodialysis. 4. Congestive heart failure. PLAN: The patient will be maintained on bronchodilator therapy, oxygen therapy as well as antibiotic therapy. Her hemoptysis may be related to underlying malignancy or an infectious process. CT scan has been ordered and will be reviewed once available. Would follow her care along with you. Repeat bronchoscopy will be undertaken if needed. I do thank you for asking me to partake in Ms. Calderon's care. Ciarra Lafleur MD WWW/SB , 06:44 PM , 07:38 PM
--- NOTE | 2017-05-26 20:45 | RADRPT ---
EXAM DATE/TIME: 05/26/2017 20:15 [place] COMPARISON: CT SIMULATION, May 17, 2017, 13:46. INDICATIONS : Evaluate neoplasm. RADIATION DOSE: 7.29 CTDIvol (mGy) MEDICAL HISTORY : Cardiovascular disease. Hypertension. Chronic obstructive pulmonary disease. Renal failure, dialysis, lung cancer, anemia. SURGICAL HISTORY : Tubal ligation. AV Shunt. ENCOUNTER: Initial ACUITY: 1 day PAIN SCALE: 0/10 LOCATION: chest TECHNIQUE: Volumetric scanning of the chest was performed. Using automated exposure control and adjustment of t he mA and/or kV according to patient size, radiation dose was kept as low as reasonably achievable to obtain optimal diagnostic quality images. DICOM format image data is available electronically for r eview and comparison. Follow-up recommendations for detected pulmonary nodules are based at a minimum on nodule size and pa tient risk factors according to Fleischner Society Guidelines. FINDINGS: There is a focal dense consolidation in the right upper lobe. The majority of the left lower lobe is consolidated with air bronchograms and there is partial consolidation of the left upper lobe with num erous air bronchograms. There are small bilateral pleural effusions. Mildly enlarged mediastinal lymp h nodes are present. Heart size is enlarged. Dense coronary calcifications. No acute findings in the upper abdomen. Stable 1.6 cm splenic artery aneurysm. Findings are similar to recent radiation therapy CT with the excepti on of improvement of bilateral pleural effusions. 3 contiguous kyphoplastyies in the lower thoracic s pine with mild residual compression. CONCLUSION: 1. Improved bilateral pleural effusions since May 17. 2. Multifocal dense consolidation in the lungs with numerous air bronchograms as above, left greater than right. 3. Compression deformities in the lower thoracic spine status post kyphoplasty. Sebastien Hastings MD on May 26, 2017 at 20:34 Board Certified Radiologist. This report was verified electronically.
--- NOTE | 2017-05-26 21:18 | EKG ---
Date Performed: 05/26/2017 Time Performed: 01:40:48 PTAGE: 81 years EKG: Sinus rhythm with PAC(s) Poor R wave progression - probable normal variant Anterior T wave changes are nonspecifi c Borderline ECG PREVIOUS TRACING : 05/26/2017 01.31 Since the previous tracing, no significant change noted DOCTOR: Kishor Alvarado Interpretating Date/Time 05/26/2017 21:16:51
[2017-05-26] MEDS: FLUoxetine HCL 20 MG CAP PO SCH (21:30)
[2017-05-26] MEDS: ATORVASTATIN 10 MG TAB PO SCH (21:30)
[2017-05-26] MEDS: DOCUSATE SODIUM 50 MG/SENNA 8.6 MG TAB PO SCH (21:31)
--- NOTE | 2017-05-26 21:43 | EKG ---
Date Performed: 05/25/2017 Time Performed: 09:59:23 PTAGE: 81 years EKG: Sinus rhythm POSSIBLE RIGHT VENTRICULAR CONDUCTION DELAY BORDERLINE ECG NO PREVIOUS TRACING DOCTOR: Kishor Alvarado Interpretating Date/Time 05/26/2017 21:42:22
[2017-05-26] MEDS: ONDANSETRON HCL 4 MG/2 ML VIAL IVP PRN (22:35)
[2017-05-27] VITALS (26 sets, daily range): BP systolic 119–178; BP diastolic 42–85; PULSE 56–72; RESP 16–18; TEMP 97.6–98.1; O2SAT 94–98
[2017-05-27] MEDS: methylPREDNISolone SOD SUCC 40 MG/1 ML VIAL IV PUSH SCH ×2 (01:29→15:12)
[2017-05-27] MEDS: HEPARIN SODIUM - SQ 10,000 UNITS/ML VIAL SQ SCH ×2 (01:29→15:13)
[2017-05-27] MEDS: RESP: ALBUTEROL 2.5 MG/IPRATROPIUM 0.5 MG NEB (SCH) INH ×4 (03:30→21:16)
[2017-05-27] MEDS: cloNIDine HCL 0.2 MG TAB PO SCH ×3 (05:03→21:57)
[2017-05-27] MEDS: LEVOTHYROXINE SODIUM 100 MCG TAB PO SCH (05:04)
[2017-05-27 07:38] LABS: AUTOMATED NEUTROPHIL # 8.3 TH/MM3 (1.8-7.7); BASOPHIL % 0.1 % (0.0-2.0); HEMATOCRIT 29.7 % (35.0-46.0); HEMOGLOBIN 9.8 GM/DL (11.6-15.3); LYMPH % 1.7 % (9.0-44.0); LYMPHOCYTE # 0.2 TH/MM3 (1.0-4.8); MEAN CORPUSCULAR HEMOGLOBIN 33.1 PG (27.0-34.0); MEAN CORPUSCULAR HGB CONC 32.8 % (32.0-36.0); MEAN PLATELET VOLUME 8.7 FL (7.0-11.0); MONO % 5.2 % (0.0-8.0); MONOCYTE # 0.5 TH/MM3 (0-0.9); PLATELET COUNT 101 TH/MM3 (150-450); RED BLOOD COUNT 2.95 MIL/MM3 (4.00-5.30); RED CELL DISTRIBUTION WIDTH 16.1 % (11.6-17.2); WHITE BLOOD COUNT 8.9 TH/MM3 (4.0-11.0)
[2017-05-27 07:59] LABS: ALBUMIN 2.4 GM/DL (3.4-5.0); ALT (GPT) 19 U/L (10-53); AST (GOT) 13 U/L (15-37); BICARBONATE 24.3 MEQ/L (21.0-32.0); BLOOD UREA NITROGEN 57 MG/DL (7-18); CALCIUM 8.1 MG/DL (8.5-10.1); CHLORIDE 97 MEQ/L (98-107); CREATININE 3.77 MG/DL (0.50-1.00); GLOMERULAR FILTRATION RATE 11 ML/MIN (>89); GLUCOSE,RANDOM 113 MG/DL (74-106); MAGNESIUM 1.8 MG/DL (1.5-2.5); PHOSPHORUS 6.2 MG/DL (2.5-4.9); SODIUM (NA) 132 MEQ/L (136-145)
[2017-05-27 08:09] LABS: ALKALINE PHOSPHATASE 78 U/L (45-117); RANDOM VANCOMYCIN 11.5 COMMENT; TOTAL BILIRUBIN ADULT 0.4 MG/DL (0.2-1.0); TOTAL PROTEIN 5.8 GM/DL (6.4-8.2)
--- NOTE | 2017-05-27 09:18 | HHI.NPPN ---
Subjective General Problems: Anemia Renal Failure: Chronic, End Stage Renal Disease Interval History Seen during dialysis. Respirations unlabored. She has been evaluated by oncology and pulmonary. (Milana Sandoval) Review of Systems Respiratory Lungs: SOB, Cough, Sputum (Milana Sandoval) Objective Data Data Vital Signs Date Time Temp Pulse Resp B/P (MAP) Pulse Ox O2 Delivery O2 Flow Rate FiO2 05/27/17 06:00 64 05/27/17 05:00 64 05/27/17 04:00 97.8 61 18 119/42 (67) 94 05/27/17 03:00 60 05/27/17 01:00 59 05/27/17 00:00 59 05/27/17 00:00 97.6 59 18 129/50 (76) 98 05/26/17 22:31 94 Nasal Cannula 2.00 05/26/17 22:00 59 05/26/17 19:00 61 05/26/17 19:00 97.6 61 18 162/72 (102) 95 05/26/17 18:00 62 05/26/17 17:00 62 05/26/17 16:43 16 05/26/17 16:00 60 05/26/17 15:30 97.3 62 18 140/57 (84) 99 05/26/17 15:00 61 05/26/17 14:00 62 05/26/17 13:00 60 05/26/17 12:00 60 05/26/17 11:30 71 16 135/50 (78) 93 05/26/17 11:00 60 05/26/17 10:47 98 Nasal Cannula 2.00 05/26/17 10:00 58 (Milana Sandoval) -: 05/27/17 0659 05/27/17 0659 Imaging Last [address] 05/26/17 0000 Signed Impressions: Service Date/Time: Friday, May 26, 2017 20:15 - CONCLUSION: 1. Improved bilateral pleural effusions since May 17. 2. Multifocal dense consolidation in the lungs with numerous air bronchograms as above, left greater than right. 3. Compression deformities in the lower thoracic spine status post kyphoplasty. Sebastien Hastings MD Chest X-Ray 05/25/17 1006 Signed Impressions: Service Date/Time: Thursday, May 25, 2017 10:13 - CONCLUSION: Stable chest x-ray with chronic right upper lobe and left midlung zone airspace consolidation. Te Freeman MD (Milana Sandoval) Physical Exam General Appearance: Well Developed, No Acute Distress, Comfortable, Malnourished (Milana Sandoval [employer]PER[employer]) Throat Throat Exam: Oral Mucosa [place] & Moist (Milana Sandoval [employer] SUPERVISOR) Pulmonary Resp Exam: Crackles, Rhonchi, Sputum, Decreased Bases (Milana Snadoval [employer] SUPERVISOR) Cardiology CV Exam: Normal Sinus Rhythm, Good Perfusion (Milana SandovalP) Gastrointestinal/Abdomen GI Exam: Soft, Non-Tender (Milana Sandoval) Musculoskeletal MS Exam: Normal Tone, Good Strength (Milana Sandoval) Integumentary Skin Exam: Warm, Dry, Intact (Milana Sandoval) Extremeties Extremities Exam: No Edema, Pedal Pulses Palpable (Milana Sandoval) Neurologic Neuro Exam: Alert, Awake, Oriented, Speech Clear, Moving All Extremities (Milana Sandoval) Psychiatric Psych Exam: Appropriate Responses (Milana Sandoval) Assessment/Plan Discussed Condition With: Patient Assessment Summary: Anemia of CKD, Hypertension, End Stage Renal Disease Problem List: (1) End stage renal disease on dialysis ICD Codes: N18.6 - End stage renal disease; Z99.2 - Dependence on renal dialysis Status: Chronic Plan: Seen during dialysis on a 2K, 350 BFR, ogal 2L Continue HD support TTS while admitted AVF is patent, protect left upper extremity Avoid IVF administration High protein, low phosphorus diet recommended if not NPO Obtain intermittent renal profile. Start calcium acetate for metabolic bone disorder (2) Chest pain ICD Codes: R07.9 - Chest pain, unspecified Status: Acute Plan: Elevated troponin in the setting of renal failure pending cardiology evaluation (3) Pneumonia ICD Codes: J18.9 - Pneumonia, unspecified organism Plan: On cefepime and vancomycin, solumedrol Chest CT reviewed, has leukocytosis, cultures in progress Oxygen, nebulizers, IS, pulmonary toilet May need bronchoscopy if no improvement Pulmonary and oncology are following given hx of lung cancer (4) Anemia ICD Codes: D64.9 - Anemia, unspecified Status: Acute Plan: Epogen with dialysis , dosage increased (Milana Sandoval) Plan patient was seen and examined. Agree with above assessment and plan. Seen during dialysis. Notes were reviewed. Her symptoms have improved. (Gt Trejo MD) Problem Qualifiers (1) Chest pain: Qualified Codes: R07.9 - Chest pain, unspecified Milana Sandoval May 27, 2017 09:17 Gt Trejo MD May 27, 2017 09:58
[2017-05-27] MEDS: EPOETIN ALFA 10,000 UNITS/ML VIAL IV PUSH PRN (11:33)
[2017-05-27] MEDS: GELATIN 12 MM/7 MM FOAM TOP PRN (11:33)
[2017-05-27] MEDS: SODIUM CHLORIDE 0.9% FLUSH 10 ML FLUSH IV FLUSH SCH ×2 (12:51→20:37)
[2017-05-27] MEDS: LOSARTAN 50 MG TAB PO SCH (12:51)
[2017-05-27] MEDS: ASPIRIN EC 81 MG TABEC PO SCH (12:51)
[2017-05-27] MEDS: METOPROLOL SUCCINATE 25 MG EXTENDED RELEASE TAB PO SCH (12:52)
[2017-05-27] MEDS: NIFEdipine 90 MG SUSTAINED RELEASE TAB PO SCH (12:52)
[2017-05-27] MEDS: PANTOPRAZOLE SOD 40 MG DELAYED RELEASE TAB PO SCH (12:52)
[2017-05-27] MEDS: guaiFENesin E.R. 600 MG TAB PO SCH ×2 (12:52→20:36)
[2017-05-27] MEDS: FENOFIBRATE 48 MG TAB PO SCH (12:53)
[2017-05-27] MEDS: MULTIVITAMINS/MINERALS THERAPEUTIC TAB PO SCH (12:53)
[2017-05-27] MEDS: CEFEPIME INJ 1,000 MG in SODIUM CHLORIDE 0.9% INJ 100 ML IV SCH (12:53)
[2017-05-27] MEDS: CALCIUM ACETATE 667 MG CAP PO SCH ×2 (12:54→18:03)
--- NOTE | 2017-05-27 13:30 | PD.ONC.PN ---
Subjective Subjective Remarks Afebrile overnight. Patient resting in hospital bed receiving dialysis. states she continues to have hemoptysis, although the overall amount has lessened. Objective Data Date Time Temp Pulse Resp B/P (MAP) Pulse Ox O2 Delivery O2 Flow Rate FiO2 05/27/17 12:00 97.8 71 16 150/85 (106) 96 05/27/17 07:30 97.6 59 18 122/52 (75) 98 05/27/17 07:00 60 05/27/17 06:00 64 05/27/17 05:00 64 05/27/17 04:00 97.8 61 18 119/42 (67) 94 05/27/17 03:00 60 05/27/17 01:00 59 05/27/17 00:00 59 05/27/17 00:00 97.6 59 18 129/50 (76) 98 05/26/17 22:31 94 Nasal Cannula 2.00 05/26/17 22:00 59 05/26/17 19:00 61 05/26/17 19:00 97.6 61 18 162/72 (102) 95 05/26/17 18:00 62 05/26/17 17:00 62 05/26/17 16:43 16 05/26/17 16:00 60 05/26/17 15:30 97.3 62 18 140/57 (84) 99 05/26/17 15:00 61 05/26/17 14:00 62 05/27/17 05/27/17 05/27/17 07:00 15:00 23:00 Intake Total 360 ml Balance 360 ml Result Diagram: 05/27/1759 05/27/17658 Laboratory Results Laboratory Tests Test 05/27/17 06:59 White Blood Count 8.9 TH/MM3 Red Blood Count 2.95 MIL/MM3 Hemoglobin 9.8 GM/DL Hematocrit 29.7 % Mean Corpuscular Volume 101.0 FL Mean Corpuscular Hemoglobin 33.1 PG Mean Corpuscular Hemoglobin Concent 32.8 % Red Cell Distribution Width 16.1 % Platelet Count 101 TH/MM3 Mean Platelet Volume 8.7 FL Neutrophils (%) (Auto) 93.0 % Lymphocytes (%) (Auto) 1.7 % Monocytes (%) (Auto) 5.2 % Eosinophils (%) (Auto) 0.0 % Basophils (%) (Auto) 0.1 % Neutrophils # (Auto) 8.3 TH/MM3 Lymphocytes # (Auto) 0.2 TH/MM3 Monocytes # (Auto) 0.5 TH/MM3 Eosinophils # (Auto) 0.0 TH/MM3 Basophils # (Auto) 0.0 TH/MM3 CBC Comment DIFF FINAL Differential Comment Blood Urea Nitrogen 57 MG/DL Creatinine 3.77 MG/DL Random Glucose 113 MG/DL Total Protein 5.8 GM/DL Albumin 2.4 GM/DL Calcium Level 8.1 MG/DL Phosphorus Level 6.2 MG/DL Magnesium Level 1.8 MG/DL Alkaline Phosphatase 78 U/L Aspartate Amino Transf (AST/SGOT) 13 U/L Alanine Aminotransferase (ALT/SGPT) 19 U/L Total Bilirubin 0.4 MG/DL Sodium Level 132 MEQ/L Potassium Level 4.7 MEQ/L Chloride Level 97 MEQ/L Carbon Dioxide Level 24.3 MEQ/L Anion Gap 11 MEQ/L Estimat Glomerular Filtration Rate 11 ML/MIN Random Vancomycin Level 11.5 COMMENT Culture Results Microbiology Date/Time Source Procedure Growth Status 05/25/17 10:10 Blood Peripheral Aerobic Blood Culture - Preliminary NO GROWTH IN 2 DAYS Resulted 05/25/17 10:10 Blood Peripheral Anaerobic Blood Culture - Preliminary NO GROWTH IN 2 DAYS Resulted 05/25/17 10:00 Blood Peripheral Aerobic Blood Culture - Preliminary NO GROWTH IN 2 DAYS Resulted 05/25/17 10:00 Blood Peripheral Anaerobic Blood Culture - Preliminary NO GROWTH IN 2 DAYS Resulted 05/25/17 21:30 Urine Clean Catch Urine Culture - Final 10-50,000 CFU/ML MIXED GRAM POSITIVE ... Complete Administered Medications Medications (Trade) Dose Ordered Sig/Raheel Route PRN Reason Start Time Stop Time Status Last Admin Dose Admin Aspirin (Ecotrin Ec) 81 mg DAILY PO 05/26/17 09:00 05/27/17 12:51 Atorvastatin Calcium (Lipitor) 10 mg HS PO 05/25/17 21:00 05/26/17 21:30 Clonidine (Catapres) 0.2 mg Q8HR PO 05/25/17 14:00 05/27/17 05:03 Fluoxetine HCl (PROzac) 20 mg HS PO 05/25/17 21:00 05/26/17 21:30 Levothyroxine Sodium (Synthroid) 100 mcg DAILY@0600 PO 05/26/17 06:00 05/27/17 05:04 Losartan Potassium (Cozaar) 100 mg DAILY PO 05/26/17 09:00 05/27/17 12:51 Metoprolol Succinate (Toprol Xl) 25 mg DAILY PO 05/26/17 09:00 05/27/17 12:52 Nifedipine (Procardia Xl) 90 mg DAILY PO 05/26/17 09:00 05/27/17 12:52 Senna/Docusate Sodium (Irma-Colace) 4 tab HS PO 05/25/17 21:00 05/26/17 21:31 Fenofibrate (Tricor) 48 mg AC LUNCH PO 05/26/17 11:00 05/27/17 12:53 Multivitamins/ Minerals Therapeutic (Theragran M Tab) 1 tab AC LUNCH PO 05/26/17 11:00 05/27/17 12:53 Pantoprazole Sodium (Protonix) 40 mg DAILY PO 05/26/17 09:00 05/27/17 12:52 Sodium Chloride (NS Flush) 2 ml UNSCH PRN IV FLUSH FLUSH AFTER USING IV ACCESS 05/25/17 12:45 05/25/17 14:42 Sodium Chloride (NS Flush) 2 ml BID IV FLUSH 05/25/17 21:00 05/27/17 12:51 Ondansetron HCl (Zofran Inj) 4 mg Q6H PRN IVP NAUSEA OR VOMITING 05/25/17 12:45 05/26/17 22:35 Heparin Sodium (Porcine) (Heparin Inj) 5,000 units Q12H SQ 05/25/17 14:00 05/27/17 01:29 Morphine Sulfate (Morphine Inj) 2 mg Q3H PRN IV PUSH Pain 3-5; if unable to take PO 05/25/17 12:45 05/26/17 15:57 Morphine Sulfate (Morphine Inj) 4 mg Q3H PRN IV PUSH Pain 6-10;if unable to take PO 05/25/17 12:45 05/25/17 14:42 Albuterol/ Ipratropium (Duoneb Neb) 1 ampule Q6HR NEB INH 05/25/17 16:00 05/27/17 03:30 Methylprednisolone Sodium Succinate (SoluMEDROL INJ) 40 mg Q12H IV PUSH 05/25/17 14:00 05/27/17 01:29 Guaifenesin (Mucinex Er) 600 mg BID PO 05/25/17 12:45 05/27/17 12:52 Ondansetron HCl (Zofran Inj) 4 mg UNSCH PRN IV PUSH WITH DIALYSIS 05/25/17 15:30 05/26/17 06:12 Gelatin (Gelfoam 12 Mm/7 Mm Top) 1 foam UNSCH PRN TOP SEE LABEL COMMENTS 05/25/17 15:30 05/27/17 11:33 Cefepime HCl 1000 mg/Sodium Chloride 100 ml @ 200 mls/hr Q24H IV 05/26/17 10:00 05/27/17 12:53 Epoetin Rohan (Epogen Inj) 10,000 units UNSCH PRN IV PUSH WITH DIALYSIS 05/27/17 09:15 05/27/17 11:33 Calcium Acetate (Phoslo) 667 mg TID PO 05/27/17 13:00 05/27/17 12:54 Objective Remarks GENERAL: pleasant elderly female, lying supine on hospital bed, receiving dialysis. SKIN: Warm and dry. HEAD: Normocephalic. EYES: No injection or drainage. NECK: Supple, trachea midline. CARDIOVASCULAR: Regular rate and rhythm RESPIRATORY: scattered rhonchi. On O2 via NC GASTROINTESTINAL: Abdomen soft, non-tender, nondistended. EXTREMITIES: No cyanosis NEUROLOGICAL: awake and alert. normal speech. moving extremities. Assessment/Plan Problem List: (1) Lung cancer ICD Codes: C34.90 - Malignant neoplasm of unspecified part of unspecified bronchus or lung Plan: History: ++multiple masses in bilateral lungs. Biopsy showed adenocarcinoma. She received stereotactic radiation to 2 lesions in the left lung and 1 on the right. Her PET scan 09/2016 showed post-radiation changes in bilateral lungs. A CT scan in March showed a diffuse consolidation in the right upper lobe, but they appeared to be more consolidated. repeat PET scan again 04/28, which showed increased hypermetabolic uptake in the left hilar area suspicious for recurrent disease + hypermetabolic activity in right upper lobe with corresponding consolidation, but appeared to be stable and likely radiation changes. (2) Anemia due to chronic kidney disease ICD Codes: N18.9 - Chronic kidney disease, unspecified; D63.1 - Anemia in chronic kidney disease Plan: -- receiving Epogen with dialysis. Assessment 81y/o female with NSCLC admitted with hypoxia, hemoptysis. history of end-stage renal disease. Hypertension. Hyperlipidemia. Congestive heart failure. Hypothyroidism. Osteoarthritis. Chronic obstructive pulmonary disease. Gastroesophageal reflux disease. Diverticulitis. Plan 1. monitor CBC 2. continue epogen with dialysis 3. may need bronchoscopy if hemoptysis persists or worsened. Attending Statement The exam, history, and the medical decision-making described in the above note were completed with the assistance of the mid-level provider. I reviewed and agree with the findings presented. I attest that I had a [id number] encounter with the patient on the same day, and personally performed and documented my assessment and findings in the medical record. Feeling better. Cough has improved. No hemoptysis this am. Reviewed CT with pt. CT showed possible pneumonia. Continue abx. Jaylin Regalado May 27, 2017 13:30 Edmundo Gonsalez MD May 27, 2017 16:04
[2017-05-27] MEDS ORDERED: DEXT 5%-NACL 0.45% 1000 ML INJ 1,000 ML IV SCH (14:46)
--- NOTE | 2017-05-27 14:46 | HHI.PR ---
Subjective Remarks up on chair feeling better on HD cough- minimal blood Objective Vitals Vital Signs Date Time Temp Pulse Resp B/P (MAP) Pulse Ox O2 Delivery O2 Flow Rate FiO2 05/27/17 12:00 97.8 71 16 150/85 (106) 96 05/27/17 07:30 97.6 59 18 122/52 (75) 98 05/27/17 07:00 60 05/27/17 06:00 64 05/27/17 05:00 64 05/27/17 04:00 97.8 61 18 119/42 (67) 94 05/27/17 03:00 60 05/27/17 01:00 59 05/27/17 00:00 59 05/27/17 00:00 97.6 59 18 129/50 (76) 98 05/26/17 22:31 94 Nasal Cannula 2.00 05/26/17 22:00 59 05/26/17 19:00 61 05/26/17 19:00 97.6 61 18 162/72 (102) 95 05/26/17 18:00 62 05/26/17 17:00 62 05/26/17 16:43 16 05/26/17 16:00 60 05/26/17 15:30 97.3 62 18 140/57 (84) 99 05/26/17 15:00 61 I/O 05/26/17 05/26/17 05/26/17 05/27/17 05/27/17 05/27/17 07:00 15:00 23:00 07:00 15:00 23:00 Intake Total 480 ml 250 ml 800 ml 360 ml Balance 480 ml 250 ml 800 ml 360 ml Intake Oral 480 ml 800 ml 360 ml IV Total 250 ml # Voids 2 4 3 Result Diagram: 05/27/17 0659 05/27/17 0659 Imaging Last Impressions Chest CT 05/26/17 0000 Signed Impressions: Service Date/Time: Friday, May 26, 2017 20:15 - CONCLUSION: 1. Improved bilateral pleural effusions since May 17. 2. Multifocal dense consolidation in the lungs with numerous air bronchograms as above, left greater than right. 3. Compression deformities in the lower thoracic spine status post kyphoplasty. Sebastien Hastings MD Chest X-Ray 05/25/17 1006 Signed Impressions: Service Date/Time: Thursday, May 25, 2017 10:13 - CONCLUSION: Stable chest x-ray with chronic right upper lobe and left midlung zone airspace consolidation. Te Freeman MD Objective Remarks awake and alert, no acute distress anciteric + basal rales regular rhythm abdomen soft, nontender extremities no edema Procedures HD A/P Problem List: (1) PNA (pneumonia) ICD Code: J18.9 - Pneumonia, unspecified organism Status: Acute (2) End stage renal disease on dialysis ICD Code: N18.6 - End stage renal disease; Z99.2 - Dependence on renal dialysis Status: Chronic (3) COPD exacerbation ICD Code: J44.1 - Chronic obstructive pulmonary disease with (acute) exacerbation Status: Acute (4) Accelerated hypertension ICD Code: I10 - Essential (primary) hypertension Status: Acute (5) Lung cancer ICD Code: C34.90 - Malignant neoplasm of unspecified part of unspecified bronchus or lung (6) Fluid overload ICD Code: E87.70 - Fluid overload, unspecified (7) Chest pain ICD Code: R07.9 - Chest pain, unspecified Status: Acute Assessment and Plan Chest pain with fluid overload and hypoxia troponin mildly leevated from KI - improved with HD Nephrology ff/ Oxygen and nebulizers Incentive spirometry Pneumonia/COPD -02 depedent Hemoptysis Continue on antibiotics with cefepime and Vancomycin Duo nebs Steroids Mucinex Incentive spirometry Dr. Lafleur ff- plan for bronchoscopy tomorrow GERD continue on home medications Hyperlipidemia continue on home medications Hypertension continue on home medications Lung cancer continue on antibiotics and duo nebs oncology ff Hypothyroidism continue on her 100 MCG's of levothyroxine daily Chronic constipation continue on her senna as at home Chest pain consult cardiology trend troponins echocardiogram home medications Continue on duo nebs Patient is a full code GI prophylaxis with home medications DVT prophylaxis with heparin Hypoxia continue on oxygen continue on hemodialysis Monitor for signs of fluid overload Will probably need oxygen [id number] at home Discharge Planning Problem Qualifiers (1) Chest pain: Qualified Codes: R07.9 - Chest pain, unspecified Catherine Ortega MD May 27, 2017 14:46
--- NOTE | 2017-05-27 14:46 | HHI.PR ---
Subjective Remarks ALERT, UP AT SIDE OF BED MINOR HEMOPTYSIS Objective Vital Signs Date Time Temp Pulse Resp B/P (MAP) Pulse Ox O2 Delivery O2 Flow Rate FiO2 05/27/17 12:00 97.8 71 16 150/85 (106) 96 05/27/17 07:30 97.6 59 18 122/52 (75) 98 05/27/17 07:00 60 05/27/17 06:00 64 05/27/17 05:00 64 05/27/17 04:00 97.8 61 18 119/42 (67) 94 05/27/17 03:00 60 05/27/17 01:00 59 05/27/17 00:00 59 05/27/17 00:00 97.6 59 18 129/50 (76) 98 05/26/17 22:31 94 Nasal Cannula 2.00 05/26/17 22:00 59 05/26/17 19:00 61 05/26/17 19:00 97.6 61 18 162/72 (102) 95 05/26/17 18:00 62 05/26/17 17:00 62 05/26/17 16:43 16 05/26/17 16:00 60 05/26/17 15:30 97.3 62 18 140/57 (84) 99 05/26/17 15:00 61 I/O 05/26/17 05/26/17 05/26/17 05/27/17 05/27/17 05/27/17 07:00 15:00 23:00 07:00 15:00 23:00 Intake Total 480 ml 250 ml 800 ml 360 ml Balance 480 ml 250 ml 800 ml 360 ml Intake Oral 480 ml 800 ml 360 ml IV Total 250 ml # Voids 2 4 3 Result Diagram: 05/27/1759 05/27/1759 Objective Remarks GENERAL: SKIN: Warm and dry. HEAD: Atraumatic. Normocephalic. EYES: Pupils equal and round. No scleral icterus. No injection or drainage. ENT: No nasal bleeding or discharge. Mucous membranes pink and moist. NECK: Trachea midline. No JVD. CARDIOVASCULAR: Regular rate and rhythm. RESPIRATORY: No accessory muscle use. SCATTERED RHONCHI to auscultation. Breath sounds equal bilaterally. GASTROINTESTINAL: Abdomen soft, non-tender, nondistended. Hepatic and splenic margins not palpable. MUSCULOSKELETAL: Extremities without clubbing, cyanosis, or edema. No obvious deformities. NEUROLOGICAL: Awake and alert. No obvious cranial nerve deficits. Motor grossly within normal limits. Five out of 5 muscle strength in the arms and legs. Normal speech. PSYCHIATRIC: Appropriate mood and affect; insight and judgment normal. Assessment and Plan Assessment and Plan OMPRESSION BILATERAL LUNG INFILTRATES HEMOPTYSIS LUNG CA ESRD ON MHD PLAN ANTIBX BRONCHOSCOPY TOMORROW ? ATYPICAL INFECTION Ciarra Lafleur MD May 27, 2017 14:46
[2017-05-27] MEDS: MORPHINE SULFATE 2 MG/ML SYRINGE IV PUSH PRN (15:21)
[2017-05-27] MEDS ORDERED: VANCOMYCIN 1,000 MG/NS 250 ML IV ONE ×2 (16:00)
[2017-05-27] MEDS: VITAMIN B CMPLX/VITC/FOLIC AC CAP PO SCH (16:20)
[2017-05-27 16:21] LABS: AUTOMATED NEUTROPHIL # 7.3 TH/MM3 (1.8-7.7); BASOPHIL % 0.2 % (0.0-2.0); EOSINOPHIL % 0.2 % (0.0-4.0); HEMOGLOBIN 10.4 GM/DL (11.6-15.3); LYMPH % 5.3 % (9.0-44.0); LYMPHOCYTE # 0.5 TH/MM3 (1.0-4.8); MEAN CELL VOLUME 99.1 FL (80.0-100.0); MEAN CORPUSCULAR HEMOGLOBIN 32.2 PG (27.0-34.0); MEAN CORPUSCULAR HGB CONC 32.5 % (32.0-36.0); MEAN PLATELET VOLUME 8.2 FL (7.0-11.0); MONO % 8.2 % (0.0-8.0); MONOCYTE # 0.7 TH/MM3 (0-0.9); NEUT % 86.1 % (16.0-70.0); PLATELET COUNT 114 TH/MM3 (150-450); RED BLOOD COUNT 3.23 MIL/MM3 (4.00-5.30); RED CELL DISTRIBUTION WIDTH 16.3 % (11.6-17.2); WHITE BLOOD COUNT 8.5 TH/MM3 (4.0-11.0)
[2017-05-27 16:35] LABS: PROTHROMBIN TIME - PATIENT 9.7 SEC (9.8-11.6)
--- NOTE | 2017-05-27 17:13 | ECHRPT ---
Indication: Chest Pain CONCLUSIONS The left ventricular systolic function is normal with an estimated ejection fraction in the range of 55-60%. Mild concentric left ventricular hypertrophy. Normal left ventricular size. The left atrial size is moderately dilated. Mitral annular calcification is present. Calcification of both mitral valve leaflets. Mild mitral valve stenosis. Mitral valve mean gradient is 4 mmHg. The mitral valve area by Pressure Halftime Method is 2.18 cm. Hcqx-us-oktcbiko mitral valve regurgitation. Aortic valve sclerosis is present. There is mild to moderate tricuspid valve regurgitation. The estimated pulmonary arterial pressure is 61.6 mmHg. BP: 125 / 96 HR: 68 Rhythm: Sinus MEASUREMENTS (Male / Female) Normal Values Technical Quality:Fair 2D ECHO LV Diastolic Diameter PLAX 5.2 cm 4.2 - 5.9 / 3.9 - 5.3 cm LV Systolic Diameter PLAX 3.6 cm IVS Diastolic Thickness 1.2 cm 0.6 - 1.0 / 0.6 - 0.9 cm LVPW Diastolic Thickness 0.9 cm 0.6 - 1.0 / 0.6 - 0.9 cm LV Relative Wall Thickness 0.4 RV Internal Dim ED PLAX 3.8 cm LVOT Diameter 1.8 cm LA Systolic Diameter LX 5.3 cm 3.0 - 4.0 / 2.7 - 3.8 cm LA Volume Index 65.5 cm/m 16 - 28 cm/m M-MODE Aortic Root Diameter MM 2.9 cm LA Systolic Diameter MM 4.2 cm LA Ao Ratio MM 1.4 AV Cusp Separation MM 1.8 cm DOPPLER AV Peak Velocity 168.0 cm/s AV Peak Gradient 11.3 mmHg LVOT Peak Velocity 121.0 cm/s LVOT Peak Gradient 5.9 mmHg AV Area Cont Eq pk 1.8 cm MV Peak Velocity 150.5 cm/s MV Peak Gradient 9.1 mmHg MV Mean Velocity 88.2 cm/s MV Mean Gradient 4.0 mmHg MV Area PHT 2.2 cm Mitral E Point Velocity 151.0 cm/s Mitral A Point Velocity 101.0 cm/s Mitral E to A Ratio 1.5 LV E' Lateral Velocity 4.0 cm/s Mitral E to LV E' Lateral Ratio 37.3 LV E' Septal Velocity 3.9 cm/s Mitral E to LV E' Septal Ratio 38.7 TR Peak Velocity 359.0 cm/s TR Peak Gradient 51.6 mmHg Right Atrial Pressure 10.0 mmHg Pulmonary Artery Systolic Pressu 61.6 mmHg Right Ventricular Systolic Press 61.6 mmHg FINDINGS LEFT VENTRICLE The left ventricular systolic function is normal with an estimated ejection fraction in the range of 55-60%. Mild concentric left ventricular hypertrophy. Normal left ventricular size. RIGHT VENTRICLE Normal right ventricular size and systolic function. LEFT ATRIUM The left atrial size is moderately dilated. RIGHT ATRIUM The right atrial size is normal. ATRIAL SEPTUM Normal atrial septal thickness without atrial level shunting by limited color doppler interrogation. AORTA The aortic root and proximal ascending aorta are normal in size on limited imaging. MITRAL VALVE Mitral annular calcification is present. Calcification of both mitral valve leaflets. Mild mitral valve stenosis. Mitral valve mean gradient is 4 mmHg. The mitral valve area by Pressure Halftime Method is 2.18 cm. Ebrf-jy-sazalhbo mitral valve regurgitation. . AORTIC VALVE Aortic valve sclerosis is present. TRICUSPID VALVE Structurally normal tricuspid valve. There is mild to moderate tricuspid valve regurgitation. The estimated pulmonary arterial pressure is 61.6 mmHg. PULMONARY VALVE No pulmonary valve regurgitation or stenosis. VESSELS The inferior vena cava is normal in size. PERICARDIUM No pericardial effusion. Scot Castillo MD, FACC (Electronically Signed) Final Date:27 May 2017 17:12
[2017-05-27] MEDS: FLUoxetine HCL 20 MG CAP PO SCH (20:36)
[2017-05-27] MEDS: ATORVASTATIN 10 MG TAB PO SCH (20:36)
[2017-05-27] MEDS: DOCUSATE SODIUM 50 MG/SENNA 8.6 MG TAB PO SCH (20:37)
[2017-05-27] MEDS: ONDANSETRON HCL 4 MG/2 ML VIAL IV PUSH PRN (20:44)
[2017-05-27] MEDS: oxyCODONE/ACETAMINOPHEN 5 MG/325 MG TAB PO PRN (20:46)
[2017-05-28] VITALS (32 sets, daily range): BP systolic 140–179; BP diastolic 56–70; PULSE 66–88; RESP 16–18; TEMP 97.8–98.5; O2SAT 92–97
[2017-05-28] MEDS: HEPARIN SODIUM - SQ 10,000 UNITS/ML VIAL SQ SCH ×2 (02:00→14:21)
[2017-05-28] MEDS: methylPREDNISolone SOD SUCC 40 MG/1 ML VIAL IV PUSH SCH ×2 (02:31→14:21)
[2017-05-28] MEDS: MORPHINE SULFATE 2 MG/ML SYRINGE IV PUSH PRN (02:46)
[2017-05-28] MEDS: RESP: ALBUTEROL 2.5 MG/IPRATROPIUM 0.5 MG NEB (SCH) INH ×4 (03:39→20:43)
[2017-05-28] MEDS: LEVOTHYROXINE SODIUM 100 MCG TAB PO SCH (05:10)
[2017-05-28] MEDS: cloNIDine HCL 0.2 MG TAB PO SCH ×3 (05:10→20:38)
[2017-05-28] MEDS: ASPIRIN EC 81 MG TABEC PO SCH (09:00)
[2017-05-28] MEDS: PANTOPRAZOLE SOD 40 MG DELAYED RELEASE TAB PO SCH (09:00)
[2017-05-28] MEDS: guaiFENesin E.R. 600 MG TAB PO SCH ×2 (09:00→20:36)
[2017-05-28] MEDS: VITAMIN B CMPLX/VITC/FOLIC AC CAP PO SCH (09:00)
[2017-05-28] MEDS: CALCIUM ACETATE 667 MG CAP PO SCH ×3 (09:00→18:00)
--- NOTE | 2017-05-28 10:12 | HHI.NPPN ---
Subjective General Problems: Anemia Renal Failure: Chronic, End Stage Renal Disease Interval History Resting comfortably, no concerns at this time. Dialyzed yesterday. She is afebrile. (Milana Sandoval) Review of Systems Respiratory Lungs: SOB, Cough, Sputum (Milana Sandoval) Objective Data Data Vital Signs Date Time Temp Pulse Resp B/P (MAP) Pulse Ox O2 Delivery O2 Flow Rate FiO2 05/28/17 09:38 96 Nasal Cannula 2.00 05/28/17 09:19 98.4 66 18 153/56 (88) 92 05/28/17 05:06 98.1 71 16 172/64 (100) 97 05/28/17 05:00 68 05/28/17 04:07 66 05/28/17 04:00 66 05/28/17 03:00 70 05/28/17 02:00 70 05/28/17 01:00 70 05/28/17 00:58 97.9 71 16 168/62 (97) 97 05/28/17 00:05 69 05/27/17 23:00 70 05/27/17 22:00 70 05/27/17 21:16 95 Nasal Cannula 2.00 05/27/17 21:00 68 05/27/17 20:31 98.1 68 16 158/62 (94) 96 05/27/17 20:21 69 05/27/17 19:00 72 05/27/17 18:00 72 05/27/17 17:00 68 05/27/17 16:00 64 05/27/17 15:30 18 05/27/17 15:00 97.7 67 16 178/79 (112) 95 05/27/17 15:00 64 05/27/17 14:00 70 05/27/17 13:00 68 05/27/17 12:00 97.8 71 16 150/85 (106) 96 05/27/17 12:00 70 05/27/17 11:00 67 (Milana Sandoval) -: 05/27/17 1611 05/27/17 0659 Imaging Last [address] 05/26/17 0000 Signed Impressions: Service Date/Time: Friday, May 26, 2017 20:15 - CONCLUSION: 1. Improved bilateral pleural effusions since May 17. 2. Multifocal dense consolidation in the lungs with numerous air bronchograms as above, left greater than right. 3. Compression deformities in the lower thoracic spine status post kyphoplasty. Sebastien Hastings MD (Milana Sandoval) Physical Exam General Appearance: Well Developed, No Acute Distress, Comfortable, Malnourished (Milana Sandoval) Throat Throat Exam: Oral Mucosa [employer] & Moist (Milana Sandoval) Pulmonary Resp Exam: Crackles, Rhonchi, Sputum, Decreased Bases (Milana Sandoval) Cardiology CV Exam: Normal Sinus Rhythm, Good Perfusion (Milana Sandoval) Gastrointestinal/Abdomen GI Exam: Soft, Non-Tender, Bowel Sounds Present (Milana Sandoval) Musculoskeletal MS Exam: Joints Intact, Normal Tone, Good Strength (Milana Sandoval) Integumentary Skin Exam: Clear, Warm, Dry, Intact (Milana Sandoval) Extremeties Extremities Exam: No Edema, Pedal Pulses Palpable (Milana Sandoval) Neurologic Neuro Exam: Alert, Awake, Oriented, Speech Clear, Moving All Extremities (Milana Sandoval) Psychiatric Psych Exam: Appropriate Responses (Milana Sandoval) Assessment/Plan Discussed Condition With: Patient Assessment Summary: Anemia of CKD, Hypertension, End Stage Renal Disease Problem List: (1) End stage renal disease on dialysis ICD Codes: N18.6 - End stage renal disease; Z99.2 - Dependence on renal dialysis Status: Chronic Plan: Continue HD support TTS while admitted 2L UF yesterday AVF is patent, protect left upper extremity Avoid IVF administration High protein, low phosphorus diet ordered Obtain intermittent renal profile. On calcium acetate for metabolic bone disorder (2) Chest pain ICD Codes: R07.9 - Chest pain, unspecified Status: Acute Plan: Mild elevation of troponin in the setting of renal failure No reports of chest pain currently (3) Pneumonia ICD Codes: J18.9 - Pneumonia, unspecified organism Plan: On cefepime and solumedrol, off vancomycin Chest CT reviewed Continue Oxygen, nebulizers, IS, pulmonary toilet May need bronchoscopy per pulmonary Oncology is also following given hx of lung cancer (4) Anemia ICD Codes: D64.9 - Anemia, unspecified Status: Acute Plan: Epogen with dialysis (Milana Sandoval) Plan patient was seen and examined. Agree with above assessment and plan. (Gt Trejo MD) Problem Qualifiers (1) Chest pain: Qualified Codes: R07.9 - Chest pain, unspecified Milana Sandoval May 28, 2017 10:11 Gt Trejo MD May 28, 2017 12:41
[2017-05-28] MEDS: CEFEPIME INJ 1,000 MG in SODIUM CHLORIDE 0.9% INJ 100 ML IV SCH (10:19)
[2017-05-28] MEDS: NIFEdipine 90 MG SUSTAINED RELEASE TAB PO SCH (10:19)
[2017-05-28] MEDS: METOPROLOL SUCCINATE 25 MG EXTENDED RELEASE TAB PO SCH (10:19)
[2017-05-28] MEDS: LOSARTAN 50 MG TAB PO SCH (10:19)
[2017-05-28] MEDS: SODIUM CHLORIDE 0.9% FLUSH 10 ML FLUSH IV FLUSH SCH ×2 (10:19→20:38)
[2017-05-28] MEDS: MULTIVITAMINS/MINERALS THERAPEUTIC TAB PO SCH (11:00)
[2017-05-28] MEDS: FENOFIBRATE 48 MG TAB PO SCH (11:00)
--- NOTE | 2017-05-28 12:55 | PD.ONC.PN ---
Subjective Subjective Remarks Afebrile overnight. Patient resting in bed. denies further hemoptysis. awaiting to go for bronchoscopy. Objective Data Date Time Temp Pulse Resp B/P (MAP) Pulse Ox O2 Delivery O2 Flow Rate FiO2 05/28/17 12:34 98.0 84 18 148/64 (92) 96 05/28/17 12:31 84 05/28/17 09:38 96 Nasal Cannula 2.00 05/28/17 09:19 98.4 66 18 153/56 (88) 92 05/28/17 05:06 98.1 71 16 172/64 (100) 97 05/28/17 05:00 68 05/28/17 04:07 66 05/28/17 04:00 66 05/28/17 03:00 70 05/28/17 02:00 70 05/28/17 01:00 70 05/28/17 00:58 97.9 71 16 168/62 (97) 97 05/28/17 00:05 69 05/27/17 23:00 70 05/27/17 22:00 70 05/27/17 21:16 95 Nasal Cannula 2.00 05/27/17 21:00 68 05/27/17 20:31 98.1 68 16 158/62 (94) 96 05/27/17 20:21 69 05/27/17 19:00 72 05/27/17 18:00 72 05/27/17 17:00 68 05/27/17 16:00 64 05/27/17 15:30 18 05/27/17 15:00 97.7 67 16 178/79 (112) 95 05/27/17 15:00 64 05/27/17 14:00 70 05/27/17 13:00 68 05/28/17 05/28/17 05/28/17 06:59 14:59 22:59 Intake Total 240 ml Output Total 300 ml Balance -60 ml Result Diagram: 05/27/17 1611 05/27/17 0659 Laboratory Results Laboratory Tests Test 05/27/17 16:11 White Blood Count 8.5 TH/MM3 Red Blood Count 3.23 MIL/MM3 Hemoglobin 10.4 GM/DL Hematocrit 32.0 % Mean Corpuscular Volume 99.1 FL Mean Corpuscular Hemoglobin 32.2 PG Mean Corpuscular Hemoglobin Concent 32.5 % Red Cell Distribution Width 16.3 % Platelet Count 114 TH/MM3 Mean Platelet Volume 8.2 FL Neutrophils (%) (Auto) 86.1 % Lymphocytes (%) (Auto) 5.3 % Monocytes (%) (Auto) 8.2 % Eosinophils (%) (Auto) 0.2 % Basophils (%) (Auto) 0.2 % Neutrophils # (Auto) 7.3 TH/MM3 Lymphocytes # (Auto) 0.5 TH/MM3 Monocytes # (Auto) 0.7 TH/MM3 Eosinophils # (Auto) 0.0 TH/MM3 Basophils # (Auto) 0.0 TH/MM3 CBC Comment DIFF FINAL Differential Comment Prothrombin Time 9.7 SEC Prothromb Time International Ratio 1.0 RATIO Activated Partial Thromboplast Time 28.7 SEC Culture Results Microbiology Date/Time Source Procedure Growth Status 05/25/17 21:30 Urine Clean Catch Urine Culture - Final 10-50,000 CFU/ML MIXED GRAM POSITIVE ... Complete Administered Medications Medications (Trade) Dose Ordered Sig/Raheel Route PRN Reason Start Time Stop Time Status Last Admin Dose Admin Aspirin (Ecotrin Ec) 81 mg DAILY PO 05/26/17 09:00 05/27/17 12:51 Atorvastatin Calcium (Lipitor) 10 mg HS PO 05/25/17 21:00 05/27/17 20:36 Clonidine (Catapres) 0.2 mg Q8HR PO 05/25/17 14:00 05/28/17 05:10 Fluoxetine HCl (PROzac) 20 mg HS PO 05/25/17 21:00 05/27/17 20:36 Levothyroxine Sodium (Synthroid) 100 mcg DAILY@0600 PO 05/26/17 06:00 05/28/17 05:10 Losartan Potassium (Cozaar) 100 mg DAILY PO 05/26/17 09:00 05/28/17 10:19 Metoprolol Succinate (Toprol Xl) 25 mg DAILY PO 05/26/17 09:00 05/28/17 10:19 Nifedipine (Procardia Xl) 90 mg DAILY PO 05/26/17 09:00 05/28/17 10:19 Senna/Docusate Sodium (Irma-Colace) 4 tab HS PO 05/25/17 21:00 05/27/17 20:37 Fenofibrate (Tricor) 48 mg AC LUNCH PO 05/26/17 11:00 05/27/17 12:53 Multivitamins/ Minerals Therapeutic (Theragran M Tab) 1 tab AC LUNCH PO 05/26/17 11:00 05/27/17 12:53 Pantoprazole Sodium (Protonix) 40 mg DAILY PO 05/26/17 09:00 05/27/17 12:52 Sodium Chloride (NS Flush) 2 ml UNSCH PRN IV FLUSH FLUSH AFTER USING IV ACCESS 05/25/17 12:45 05/25/17 14:42 Sodium Chloride (NS Flush) 2 ml BID IV FLUSH 05/25/17 21:00 05/28/17 10:19 Ondansetron HCl (Zofran Inj) 4 mg Q6H PRN IVP NAUSEA OR VOMITING 05/25/17 12:45 05/26/17 22:35 Heparin Sodium (Porcine) (Heparin Inj) 5,000 units Q12H SQ 05/25/17 14:00 05/27/17 15:13 Oxycodone/ Acetaminophen (Percocet 5-325 Mg) 1 tab Q6H PRN PO PAIN SCALE 3 TO 5 05/25/17 12:45 05/27/17 20:46 Morphine Sulfate (Morphine Inj) 2 mg Q3H PRN IV PUSH Pain 3-5; if unable to take PO 05/25/17 12:45 05/28/17 02:46 Morphine Sulfate (Morphine Inj) 4 mg Q3H PRN IV PUSH Pain 6-10;if unable to take PO 05/25/17 12:45 05/25/17 14:42 Albuterol/ Ipratropium (Duoneb Neb) 1 ampule Q6HR NEB INH 05/25/17 16:00 05/28/17 09:33 Methylprednisolone Sodium Succinate (SoluMEDROL INJ) 40 mg Q12H IV PUSH 05/25/17 14:00 05/28/17 02:31 Guaifenesin (Mucinex Er) 600 mg BID PO 05/25/17 12:45 05/27/17 20:36 Ondansetron HCl (Zofran Inj) 4 mg UNSCH PRN IV PUSH WITH DIALYSIS 05/25/17 15:30 05/27/17 20:44 Gelatin (Gelfoam 12 Mm/7 Mm Top) 1 foam UNSCH PRN TOP SEE LABEL COMMENTS 05/25/17 15:30 05/27/17 11:33 Cefepime HCl 1000 mg/Sodium Chloride 100 ml @ 200 mls/hr Q24H IV 05/26/17 10:00 05/28/17 10:19 Epoetin Rohan (Epogen Inj) 10,000 units UNSCH PRN IV PUSH WITH DIALYSIS 05/27/17 09:15 05/27/17 11:33 Calcium Acetate (Phoslo) 667 mg TID PO 05/27/17 13:00 05/27/17 18:03 Vitamin B Complex/ Vit C/Folic Acid (Nephrocaps) 1 cap DAILY PO 05/27/17 10:15 05/27/17 16:20 Objective Remarks GENERAL: pleasant elderly female, sitting up in bed, watching TV SKIN: Warm and dry. HEAD: Normocephalic. EYES: No injection or drainage. NECK: Supple, trachea midline. CARDIOVASCULAR: Regular rate and rhythm RESPIRATORY: coarse, scattered rhonchi. On O2 via NC GASTROINTESTINAL: Abdomen soft, non-tender, nondistended. EXTREMITIES: No cyanosis NEUROLOGICAL: awake, alert. normal speech. Assessment/Plan Problem List: (1) Lung cancer ICD Codes: C34.90 - Malignant neoplasm of unspecified part of unspecified bronchus or lung Plan: History: ++multiple masses in bilateral lungs. Biopsy showed adenocarcinoma. She received stereotactic radiation to 2 lesions in the left lung and 1 on the right. Her PET scan 09/2016 showed post-radiation changes in bilateral lungs. A CT scan in March showed a diffuse consolidation in the right upper lobe, but they appeared to be more consolidated. repeat PET scan again 04/28, which showed increased hypermetabolic uptake in the left hilar area suspicious for recurrent disease + hypermetabolic activity in right upper lobe with corresponding consolidation, but appeared to be stable and likely radiation changes. (2) Anemia due to chronic kidney disease ICD Codes: N18.9 - Chronic kidney disease, unspecified; D63.1 - Anemia in chronic kidney disease Plan: -- receiving Epogen with dialysis. Assessment 81y/o female with NSCLC admitted with hypoxia, hemoptysis. history of end-stage renal disease. Hypertension. Hyperlipidemia. Congestive heart failure. Hypothyroidism. Osteoarthritis. Chronic obstructive pulmonary disease. Gastroesophageal reflux disease. Diverticulitis. Plan 1. ok to d/c from oncology perspective when pulmonology clears 2. monitor CBC 3. continue supportive care Attending Statement The exam, history, and the medical decision-making described in the above note were completed with the assistance of the mid-level provider. I reviewed and agree with the findings presented. I attest that I had a [id number] encounter with the patient on the same day, and personally performed and documented my assessment and findings in the medical record. SOB has improved. Denies hemoptysis. Await bronchoscopy today. Can be d/c once clear by pulmonology. She will f/u with radiation oncology for XRT. Jaylin Regalado May 28, 2017 12:55 Edmundo Gonsalez MD May 28, 2017 14:20
--- NOTE | 2017-05-28 15:17 | HHI.PR ---
Subjective Remarks no furtehr episodes of hemoptysis denies any pain bronchoscopy cancelled- patient ate this am Objective Vitals Vital Signs Date Time Temp Pulse Resp B/P (MAP) Pulse Ox O2 Delivery O2 Flow Rate FiO2 05/28/17 15:10 97.8 78 18 140/70 (93) 97 05/28/17 15:08 78 05/28/17 14:04 68 05/28/17 13:11 88 05/28/17 12:34 98.0 84 18 148/64 (92) 96 05/28/17 12:31 84 05/28/17 11:00 68 05/28/17 10:00 72 05/28/17 09:38 96 Nasal Cannula 2.00 05/28/17 09:19 98.4 66 18 153/56 (88) 92 05/28/17 09:00 66 05/28/17 08:00 69 05/28/17 05:06 98.1 71 16 172/64 (100) 97 05/28/17 05:00 68 05/28/17 04:07 66 05/28/17 04:00 66 05/28/17 03:00 70 05/28/17 02:00 70 05/28/17 01:00 70 05/28/17 00:58 97.9 71 16 168/62 (97) 97 05/28/17 00:05 69 05/27/17 23:00 70 05/27/17 22:00 70 05/27/17 21:16 95 Nasal Cannula 2.00 05/27/17 21:00 68 05/27/17 20:31 98.1 68 16 158/62 (94) 96 05/27/17 20:21 69 05/27/17 19:00 72 05/27/17 18:00 72 05/27/17 17:00 68 05/27/17 16:00 64 05/27/17 15:30 18 I/O 05/27/17 05/27/17 05/27/17 05/28/17 05/28/17 05/28/17 07:00 15:00 23:00 07:00 15:00 23:00 Intake Total 360 ml 740 ml 240 ml Output Total 200 ml 300 ml Balance 360 ml 540 ml -60 ml Intake Oral 360 ml 740 ml 240 ml Output Urine Total 200 ml 300 ml # Voids 3 Result Diagram: 05/27/17 1611 05/27/17 0659 Imaging Last Impressions Chest CT 05/26/17 0000 Signed Impressions: Service Date/Time: Friday, May 26, 2017 20:15 - CONCLUSION: 1. Improved bilateral pleural effusions since May 17. 2. Multifocal dense consolidation in the lungs with numerous air bronchograms as above, left greater than right. 3. Compression deformities in the lower thoracic spine status post kyphoplasty. Sebastien Hastings MD Chest X-Ray 05/25/17 1006 Signed Impressions: Service Date/Time: Thursday, May 25, 2017 10:13 - CONCLUSION: Stable chest x-ray with chronic right upper lobe and left midlung zone airspace consolidation. Te Freeman MD Objective Remarks awake and alert, no acute distress anciteric + basal rales, no wheezes regular rhythm abdomen soft, nontender extremities no edema Procedures HD A/P Problem List: (1) PNA (pneumonia) ICD Code: J18.9 - Pneumonia, unspecified organism Status: Acute (2) End stage renal disease on dialysis ICD Code: N18.6 - End stage renal disease; Z99.2 - Dependence on renal dialysis Status: Chronic (3) COPD exacerbation ICD Code: J44.1 - Chronic obstructive pulmonary disease with (acute) exacerbation Status: Acute (4) Accelerated hypertension ICD Code: I10 - Essential (primary) hypertension Status: Acute (5) Lung cancer ICD Code: C34.90 - Malignant neoplasm of unspecified part of unspecified bronchus or lung (6) Fluid overload ICD Code: E87.70 - Fluid overload, unspecified (7) Chest pain ICD Code: R07.9 - Chest pain, unspecified Status: Acute Assessment and Plan Chest pain with fluid overload and hypoxia troponin mildly elevated from KI- ESRD on HD Nephrology ff Oxygen and nebulizers Incentive spirometry Pneumonia/COPD -02 dependent Hemoptysis- no furtehr episodes Continue on antibiotics with cefepime Duo nebs Steroids- change to po prednisone 20 mg po bid Mucinex Incentive spirometry Dr. Lafleur ff-= bronchoscopy cancelled- GERD continue on home medications Hyperlipidemia continue on home medications Hypertension continue on home medications Lung cancer continue on antibiotics and duo nebs oncology ff Hypothyroidism continue on her 100 MCG's of levothyroxine daily Chronic constipation continue on her senna as at home Chest pain consult cardiology trend troponins echocardiogram home medications Continue on duo nebs Patient is a full code GI prophylaxis with home medications DVT prophylaxis with heparin Hypoxia continue on oxygen continue on hemodialysis Monitor for signs of fluid overload Will probably need oxygen [id number] at home Discharge Planning Problem Qualifiers (1) Chest pain: Qualified Codes: R07.9 - Chest pain, unspecified Catherine Ortega MD May 28, 2017 15:17
--- NOTE | 2017-05-28 16:29 | HHI.PR ---
Subjective Remarks ALERT, UP AT SIDE OF BED MINOR HEMOPTYSIS Objective Vital Signs Date Time Temp Pulse Resp B/P (MAP) Pulse Ox O2 Delivery O2 Flow Rate FiO2 05/28/17 15:10 97.8 78 18 140/70 (93) 97 05/28/17 15:08 78 05/28/17 14:04 68 05/28/17 13:11 88 05/28/17 12:34 98.0 84 18 148/64 (92) 96 05/28/17 12:31 84 05/28/17 11:00 68 05/28/17 10:00 72 05/28/17 09:38 96 Nasal Cannula 2.00 05/28/17 09:19 98.4 66 18 153/56 (88) 92 05/28/17 09:00 66 05/28/17 08:00 69 05/28/17 05:06 98.1 71 16 172/64 (100) 97 05/28/17 05:00 68 05/28/17 04:07 66 05/28/17 04:00 66 05/28/17 03:00 70 05/28/17 02:00 70 05/28/17 01:00 70 05/28/17 00:58 97.9 71 16 168/62 (97) 97 05/28/17 00:05 69 05/27/17 23:00 70 05/27/17 22:00 70 05/27/17 21:16 95 Nasal Cannula 2.00 05/27/17 21:00 68 05/27/17 20:31 98.1 68 16 158/62 (94) 96 05/27/17 20:21 69 05/27/17 19:00 72 05/27/17 18:00 72 05/27/17 17:00 68 I/O 05/27/17 05/27/17 05/27/17 05/28/17 05/28/17 05/28/17 07:00 15:00 23:00 07:00 15:00 23:00 Intake Total 360 ml 740 ml 240 ml Output Total 200 ml 300 ml Balance 360 ml 540 ml -60 ml Intake Oral 360 ml 740 ml 240 ml Output Urine Total 200 ml 300 ml # Voids 3 Result Diagram: 05/27/17 1611 05/27/17 0659 Objective Remarks GENERAL: SKIN: Warm and dry. HEAD: Atraumatic. Normocephalic. EYES: Pupils equal and round. No scleral icterus. No injection or drainage. ENT: No nasal bleeding or discharge. Mucous membranes pink and moist. NECK: Trachea midline. No JVD. CARDIOVASCULAR: Regular rate and rhythm. RESPIRATORY: No accessory muscle use. SCATTERED RHONCHI to auscultation. Breath sounds equal bilaterally. GASTROINTESTINAL: Abdomen soft, non-tender, nondistended. Hepatic and splenic margins not palpable. MUSCULOSKELETAL: Extremities without clubbing, cyanosis, or edema. No obvious deformities. NEUROLOGICAL: Awake and alert. No obvious cranial nerve deficits. Motor grossly within normal limits. Five out of 5 muscle strength in the arms and legs. Normal speech. PSYCHIATRIC: Appropriate mood and affect; insight and judgment normal. Assessment and Plan Assessment and Plan OMPRESSION BILATERAL LUNG INFILTRATES HEMOPTYSIS LUNG CA ESRD ON MHD PLAN ANTIBX BRONCHOSCOPY CANCELLED PATIENT ATE WILL PROCEED WEDNESDAY Ciarra Lafleur MD May 28, 2017 16:29
[2017-05-28] MEDS: DOCUSATE SODIUM 50 MG/SENNA 8.6 MG TAB PO SCH (20:35)
[2017-05-28] MEDS: predniSONE 20 MG TAB PO SCH (20:36)
[2017-05-28] MEDS: FLUoxetine HCL 20 MG CAP PO SCH (20:36)
[2017-05-28] MEDS: ATORVASTATIN 10 MG TAB PO SCH (20:37)
[2017-05-28] MEDS: cloNIDine HCL 0.1 MG TAB PO PRN (23:19)
[2017-05-29] VITALS (28 sets, daily range): BP systolic 151–190; BP diastolic 59–78; PULSE 58–74; RESP 16–18; TEMP 98.2–98.6; O2SAT 95–99
[2017-05-29] MEDS: HEPARIN SODIUM - SQ 10,000 UNITS/ML VIAL SQ SCH ×2 (02:45→12:53)
[2017-05-29] MEDS: RESP: ALBUTEROL 2.5 MG/IPRATROPIUM 0.5 MG NEB (SCH) INH ×2 (03:03→09:26)
[2017-05-29] MEDS: cloNIDine HCL 0.2 MG TAB PO SCH ×3 (03:50→21:03)
[2017-05-29] MEDS: LEVOTHYROXINE SODIUM 100 MCG TAB PO SCH (03:50)
[2017-05-29] MEDS: METOPROLOL SUCCINATE 25 MG EXTENDED RELEASE TAB PO SCH (07:51)
[2017-05-29] MEDS: PANTOPRAZOLE SOD 40 MG DELAYED RELEASE TAB PO SCH (07:51)
[2017-05-29] MEDS: predniSONE 20 MG TAB PO SCH ×2 (07:51→21:00)
[2017-05-29] MEDS: LOSARTAN 50 MG TAB PO SCH (07:51)
[2017-05-29] MEDS: CALCIUM ACETATE 667 MG CAP PO SCH ×3 (07:52→17:54)
[2017-05-29] MEDS: SODIUM CHLORIDE 0.9% FLUSH 10 ML FLUSH IV FLUSH SCH ×2 (07:52→21:00)
[2017-05-29] MEDS: NIFEdipine 90 MG SUSTAINED RELEASE TAB PO SCH (07:52)
[2017-05-29] MEDS: ASPIRIN EC 81 MG TABEC PO SCH (07:52)
[2017-05-29] MEDS: guaiFENesin E.R. 600 MG TAB PO SCH ×2 (07:52→21:01)
[2017-05-29] MEDS: VITAMIN B CMPLX/VITC/FOLIC AC CAP PO SCH (07:52)
--- NOTE | 2017-05-29 08:41 | HHI.PR ---
Subjective Remarks slept well overnight no chest discomfort telemetry - sinus no reported hemoptysis up and ambulated with a walker going for HD this am Objective Vitals Vital Signs Date Time Temp Pulse Resp B/P (MAP) Pulse Ox O2 Delivery O2 Flow Rate FiO2 05/29/17 07:28 98.2 67 18 190/73 (112) 99 05/29/17 06:00 68 05/29/17 05:00 68 05/29/17 04:00 68 05/29/17 03:45 190/76 (114) 05/29/17 03:00 65 05/29/17 03:00 65 16 178/69 (105) 98 05/29/17 02:00 68 05/29/17 01:00 68 05/29/17 00:00 70 05/28/17 23:15 77 16 179/66 (103) 96 05/28/17 23:00 83 05/28/17 22:00 72 05/28/17 21:00 70 05/28/17 20:45 96 Nasal Cannula 2.00 05/28/17 20:00 72 05/28/17 19:45 98.5 72 16 160/60 (93) 97 05/28/17 19:00 74 05/28/17 18:23 72 05/28/17 17:26 74 05/28/17 16:49 68 05/28/17 15:10 97.8 78 18 140/70 (93) 97 05/28/17 15:08 78 05/28/17 14:04 68 05/28/17 13:11 88 05/28/17 12:34 98.0 84 18 148/64 (92) 96 05/28/17 12:31 84 05/28/17 11:00 68 05/28/17 10:00 72 05/28/17 09:38 96 Nasal Cannula 2.00 05/28/17 09:19 98.4 66 18 153/56 (88) 92 05/28/17 09:00 66 I/O 05/28/17 05/28/17 05/28/17 05/29/17 05/29/17 05/29/17 07:00 15:00 23:00 07:00 15:00 23:00 Intake Total 240 ml 820 ml 480 ml Output Total 300 ml 500 ml Balance -60 ml 820 ml -20 ml Intake Oral 240 ml 720 ml 480 ml IV Total 100 ml Output Urine Total 300 ml 500 ml # Voids 3 # Bowel Movements 0 Result Diagram: 05/27/17 1611 05/27/17 0659 Imaging Last Impressions Chest CT 05/26/17 0000 Signed Impressions: Service Date/Time: Friday, May 26, 2017 20:15 - CONCLUSION: 1. Improved bilateral pleural effusions since May 17. 2. Multifocal dense consolidation in the lungs with numerous air bronchograms as above, left greater than right. 3. Compression deformities in the lower thoracic spine status post kyphoplasty. Sebastien Hastings MD Chest X-Ray 05/25/17 1006 Signed Impressions: Service Date/Time: Thursday, May 25, 2017 10:13 - CONCLUSION: Stable chest x-ray with chronic right upper lobe and left midlung zone airspace consolidation. Te Freeman MD Objective Remarks awake and alert, no acute distress anicteric no rales , no wheezes regular rhythm abdomen soft, nontender extremities no edema Procedures HD A/P Problem List: (1) PNA (pneumonia) ICD Code: J18.9 - Pneumonia, unspecified organism Status: Acute (2) End stage renal disease on dialysis ICD Code: N18.6 - End stage renal disease; Z99.2 - Dependence on renal dialysis Status: Chronic (3) COPD exacerbation ICD Code: J44.1 - Chronic obstructive pulmonary disease with (acute) exacerbation Status: Acute (4) Accelerated hypertension ICD Code: I10 - Essential (primary) hypertension Status: Acute (5) Lung cancer ICD Code: C34.90 - Malignant neoplasm of unspecified part of unspecified bronchus or lung (6) Fluid overload ICD Code: E87.70 - Fluid overload, unspecified (7) Chest pain ICD Code: R07.9 - Chest pain, unspecified Status: Acute Assessment and Plan Chest pain with fluid overload and hypoxia Hypertension- still elevated SBPs troponin mildly elevated from KI- ESRD on HD Nephrology ff/ Oxygen and nebulizers Incentive spirometry Hemodialysis 3x a week- today Increase Clonidine to 0.3 mg po tid continue on procardia 90 mg XL, cozaar 100, Metoprol daily Pneumonia/COPD -02 dependent Hemoptysis- no further episodes Continue on antibiotics with cefepime Duo nebs Steroids- changed to po prednisone 20 mg po bid 05/28 Mucinex [address] ncentive spirometry Dr. Lafleur ff-= bronchoscopy - Wednesday GERD continue on home medications Hyperlipidemia continue on home medications Hypertension continue on home medications Lung cancer continue on antibiotics and duo nebs oncology ff Hypothyroidism continue on her 100 MCG's of levothyroxine daily Chronic constipation continue on her senna as at home Chest pain consult cardiology trend troponins echocardiogram home medications Continue on duo nebs Patient is a full code GI prophylaxis with home medications DVT prophylaxis with heparin Hypoxia continue on oxygen continue on hemodialysis Monitor for signs of fluid overload Will probably need oxygen [id number] at home Patient up and out of chair daily and getting around her room with walker Problem Qualifiers (1) Chest pain: Qualified Codes: R07.9 - Chest pain, unspecified Catherine Ortega MD May 29, 2017 08:41
[2017-05-29] MEDS: cloNIDine HCL 0.1 MG TAB PO PRN ×2 (09:31→15:26)
--- NOTE | 2017-05-29 09:42 | HHI.NPPN ---
Subjective General Problems: Anemia Renal Failure: Chronic, End Stage Renal Disease Interval History patient was seen during dialysis. She is comfortable. Possible discharge today after dialysis. On 2K, BFR is 350 ml/min. UF goal is 3 liters. Review of Systems Respiratory Lungs: SOB, Cough, Sputum Objective Data Data Vital Signs Date Time Temp Pulse Resp B/P (MAP) Pulse Ox O2 Delivery O2 Flow Rate FiO2 05/29/17 07:28 98.2 67 18 190/73 (112) 99 05/29/17 06:00 68 05/29/17 05:00 68 05/29/17 04:00 68 05/29/17 03:45 190/76 (114) 05/29/17 03:00 65 05/29/17 03:00 65 16 178/69 (105) 98 05/29/17 02:00 68 05/29/17 01:00 68 05/29/17 00:00 70 05/28/17 23:15 77 16 179/66 (103) 96 05/28/17 23:00 83 05/28/17 22:00 72 05/28/17 21:00 70 05/28/17 20:45 96 Nasal Cannula 2.00 05/28/17 20:00 72 05/28/17 19:45 98.5 72 16 160/60 (93) 97 05/28/17 19:00 74 05/28/17 18:23 72 05/28/17 17:26 74 05/28/17 16:49 68 05/28/17 15:10 97.8 78 18 140/70 (93) 97 05/28/17 15:08 78 05/28/17 14:04 68 05/28/17 13:11 88 05/28/17 12:34 98.0 84 18 148/64 (92) 96 05/28/17 12:31 84 05/28/17 11:00 68 05/28/17 10:00 72 -: 05/27/17 1611 05/27/17 0659 Physical Exam General Appearance: Well Developed, No Acute Distress, Comfortable, Malnourished Throat Throat Exam: Oral Mucosa [place] & Moist Pulmonary Resp Exam: Crackles, Rhonchi, Sputum, Decreased Bases Cardiology CV Exam: Normal Sinus Rhythm, Good Perfusion Gastrointestinal/Abdomen GI Exam: Soft, Non-Tender, Bowel Sounds Present Musculoskeletal MS Exam: Joints Intact, Normal Tone, Good Strength Integumentary Skin Exam: Clear, Warm, Dry, Intact Extremeties Extremities Exam: No Edema, Pedal Pulses Palpable Neurologic Neuro Exam: Alert, Awake, Oriented, Speech Clear, Moving All Extremities Psychiatric Psych Exam: Appropriate Responses Assessment/Plan Discussed Condition With: Patient Assessment Summary: Anemia of CKD, Hypertension, End Stage Renal Disease Problem List: (1) End stage renal disease on dialysis ICD Codes: N18.6 - End stage renal disease; Z99.2 - Dependence on renal dialysis Status: Chronic Plan: Continue HD support TTS. Dialysis today as above. AVF is patent, protect left upper extremity Avoid IVF administration High protein, low phosphorus diet ordered Obtain intermittent renal profile. On calcium acetate for metabolic bone disorder (2) Chest pain ICD Codes: R07.9 - Chest pain, unspecified Status: Acute Plan: Mild elevation of troponin in the setting of renal failure No reports of chest pain currently (3) Pneumonia ICD Codes: J18.9 - Pneumonia, unspecified organism Plan: On cefepime and solumedrol, off vancomycin Chest CT reviewed Continue Oxygen, nebulizers, IS, pulmonary toilet May need bronchoscopy per pulmonary Oncology is also following given hx of lung cancer (4) Anemia ICD Codes: D64.9 - Anemia, unspecified Status: Acute Plan: Epogen with dialysis Plan Patient can be discharged from renal standpoint. Problem Qualifiers (1) Chest pain: Qualified Codes: R07.9 - Chest pain, unspecified tG Trejo MD May 29, 2017 09:42
[2017-05-29] MEDS: EPOETIN ALFA 10,000 UNITS/ML VIAL IV PUSH PRN (11:50)
[2017-05-29] MEDS: GELATIN 12 MM/7 MM FOAM TOP PRN (11:50)
[2017-05-29] MEDS: MULTIVITAMINS/MINERALS THERAPEUTIC TAB PO SCH (12:54)
[2017-05-29] MEDS: FENOFIBRATE 48 MG TAB PO SCH (12:54)
[2017-05-29] MEDS: CEFEPIME INJ 1,000 MG in SODIUM CHLORIDE 0.9% INJ 100 ML IV SCH (14:03)
[2017-05-29] MEDS: ONDANSETRON HCL 4 MG/2 ML VIAL IVP PRN ×2 (15:26→23:07)
[2017-05-29] MEDS: SENNOSIDES 8.6 MG TAB PO PRN (17:54)
[2017-05-29] MEDS: DOCUSATE SODIUM 50 MG/SENNA 8.6 MG TAB PO SCH (21:01)
[2017-05-29] MEDS: ATORVASTATIN 10 MG TAB PO SCH (21:01)
[2017-05-29] MEDS: FLUoxetine HCL 20 MG CAP PO SCH (21:01)
[2017-05-30] VITALS (29 sets, daily range): BP systolic 135–185; BP diastolic 51–73; PULSE 52–64; RESP 16–18; TEMP 97.8–98.5; O2SAT 97–100
[2017-05-30] MEDS: HEPARIN SODIUM - SQ 10,000 UNITS/ML VIAL SQ SCH ×2 (02:51→13:39)
[2017-05-30] MEDS: MORPHINE SULFATE 2 MG/ML SYRINGE IV PUSH PRN (02:54)
[2017-05-30] MEDS: LEVOTHYROXINE SODIUM 100 MCG TAB PO SCH (05:23)
[2017-05-30] MEDS: cloNIDine HCL 0.2 MG TAB PO SCH ×3 (05:24→21:20)
[2017-05-30] MEDS: NIFEdipine 90 MG SUSTAINED RELEASE TAB PO SCH (08:10)
[2017-05-30] MEDS: PANTOPRAZOLE SOD 40 MG DELAYED RELEASE TAB PO SCH (08:11)
[2017-05-30] MEDS: SENNOSIDES 8.6 MG TAB PO PRN (08:11)
[2017-05-30] MEDS: CALCIUM ACETATE 667 MG CAP PO SCH ×3 (08:12→18:38)
[2017-05-30] MEDS: METOPROLOL SUCCINATE 25 MG EXTENDED RELEASE TAB PO SCH (08:12)
[2017-05-30] MEDS: guaiFENesin E.R. 600 MG TAB PO SCH ×2 (08:12→21:18)
[2017-05-30] MEDS: ASPIRIN EC 81 MG TABEC PO SCH (08:12)
[2017-05-30] MEDS: predniSONE 20 MG TAB PO SCH (08:12)
[2017-05-30] MEDS: LOSARTAN 50 MG TAB PO SCH (08:12)
[2017-05-30] MEDS: SODIUM CHLORIDE 0.9% FLUSH 10 ML FLUSH IV FLUSH SCH ×2 (08:13→21:21)
[2017-05-30] MEDS: VITAMIN B CMPLX/VITC/FOLIC AC CAP PO SCH (08:13)
--- NOTE | 2017-05-30 09:48 | HHI.PR ---
Subjective Remarks sitting on side of bed, appears uncomfortable complains of abdominal discomfort - states constipation - no BM for 5 days- history of chronic constipation- on Senna as OP- continued here not taking much narcotics + flatus no shortness of breath, no hemoptysis Objective Vitals Vital Signs Date Time Temp Pulse Resp B/P (MAP) Pulse Ox O2 Delivery O2 Flow Rate FiO2 05/30/17 08:04 98.5 59 18 185/59 (101) 97 05/30/17 07:00 56 05/30/17 06:00 62 05/30/17 05:00 60 05/30/17 04:00 60 05/30/17 03:10 64 18 158/73 (101) 99 05/30/17 03:00 63 05/30/17 02:00 60 05/30/17 01:00 64 05/30/17 00:00 62 05/29/17 23:30 98.4 63 16 155/63 (93) 96 05/29/17 23:00 63 05/29/17 22:00 62 05/29/17 21:06 Nasal Cannula 2.00 05/29/17 21:00 64 05/29/17 20:00 60 05/29/17 19:50 98.2 58 16 175/77 (109) 97 05/29/17 19:00 61 05/29/17 18:16 63 05/29/17 17:50 151/64 (93) 05/29/17 17:22 64 05/29/17 16:00 64 05/29/17 15:21 98.5 70 16 164/59 (94) 97 05/29/17 15:00 69 05/29/17 14:06 158/62 (94) 05/29/17 14:00 74 05/29/17 13:00 70 05/29/17 12:36 98.6 73 18 185/78 (113) 95 I/O 05/29/17 05/29/17 05/29/17 05/30/17 05/30/17 05/30/17 07:00 15:00 23:00 07:00 15:00 23:00 Intake Total 480 ml 820 ml 240 ml Output Total 500 ml 3000 ml 450 ml 300 ml Balance -20 ml -3000 ml 370 ml -60 ml Intake Oral 480 ml 720 ml 240 ml IV Total 100 ml Output Urine Total 500 ml 450 ml 300 ml Hemodialysis 3000 ml # Bowel Movements 0 1 0 Result Diagram: 05/27/17 1611 05/27/17 0659 Imaging Last Impressions Chest CT 05/26/17 0000 Signed Impressions: Service Date/Time: Friday, May 26, 2017 20:15 - CONCLUSION: 1. Improved bilateral pleural effusions since May 17. 2. Multifocal dense consolidation in the lungs with numerous air bronchograms as above, left greater than right. 3. Compression deformities in the lower thoracic spine status post kyphoplasty. Sebastien Hastings MD Chest X-Ray 05/25/17 1006 Signed Impressions: Service Date/Time: Thursday, May 25, 2017 10:13 - CONCLUSION: Stable chest x-ray with chronic right upper lobe and left midlung zone airspace consolidation. Te Freeman MD Objective Remarks awake and alert, no acute distress anicteric no rales , no wheezes regular rhythm abdomen - distended but soft, + bowel sounds, slightly tender lower abdomen rectal exam- some skin tags, tight tone, lots of soft stool on examining finger , some stools evacuated, then liquid stools started seeping out extremities no edema Procedures HD A/P Problem List: (1) PNA (pneumonia) ICD Code: J18.9 - Pneumonia, unspecified organism Status: Acute (2) End stage renal disease on dialysis ICD Code: N18.6 - End stage renal disease; Z99.2 - Dependence on renal dialysis Status: Chronic (3) COPD exacerbation ICD Code: J44.1 - Chronic obstructive pulmonary disease with (acute) exacerbation Status: Acute (4) Accelerated hypertension ICD Code: I10 - Essential (primary) hypertension Status: Acute (5) Lung cancer ICD Code: C34.90 - Malignant neoplasm of unspecified part of unspecified bronchus or lung (6) Fluid overload ICD Code: E87.70 - Fluid overload, unspecified (7) Chest pain ICD Code: R07.9 - Chest pain, unspecified Status: Acute Assessment and Plan 81 years old female Chest pain with fluid overload and hypoxia Hypertension- some elevated SBPs troponin mildly elevated from KI- ESRD on HD Nephrology ff Oxygen and nebulizers Incentive spirometry Hemodialysis 3x a week- Increase Clonidine to 0.3 mg po tid 05/29 continue on procardia 90 mg XL, cozaar 100, Metoprol daily Pneumonia/COPD -02 dependent Hemoptysis- no further episodes Continue on antibiotics with cefepime Duo nebs Steroids- changed to po prednisone 20 mg po bid 05/28 Mucinex [address] n[address]ive spi[address]etry Dr. Lafleur ff-= bronchoscopy - Wednesday Abdominal pain with distention-likely Ileus from constipation r/o DESIREE History of chronic constipation History of sigmoid surgery may many years ago stat KUB now digital exam done- some stools evacuated then stools started flowing out already on Senna daily monitor- daily GERD continue on home medications Hyperlipidemia continue on home medications Hypothyroidism continue on her 100 MCG's of levothyroxine daily Continue on duo nebs Patient is a full code GI prophylaxis with home medications DVT prophylaxis with heparin Hypoxia continue on oxygen continue on hemodialysis Monitor for signs of fluid overload Will probably need oxygen [id number] at home Patient up and out of chair daily and getting around her room with walker Problem Qualifiers (1) Chest pain: Qualified Codes: R07.9 - Chest pain, unspecified Catherine Ortega MD May 30, 2017 09:48
--- NOTE | 2017-05-30 11:08 | RADRPT ---
EXAM DATE/TIME: 05/30/2017 10:38 [facility] COMPARISON: No previous studies available for comparison. INDICATIONS : Abdominal pain and distention. MEDICAL HISTORY : Chronic obstructive pulmonary disease. Congestive heart failure. Hypertension. SURGICAL HISTORY : Appendectomy. Cholecystectomy. ENCOUNTER: Subsequent ACUITY: 1 day PAIN SCORE: 4/10 LOCATION: Abdomen. FINDINGS: There is no free air. Scattered air-fluid levels are noted. Complete cardiomegaly is evident. CONCLUSION: No free air. Dillan Mauricio MD FACR on May 30, 2017 at 11:06 Board Certified Radiologist. This report was verified electronically.
--- NOTE | 2017-05-30 11:26 | HHI.NPPN ---
Subjective General Problems: Anemia Renal Failure: Chronic, End Stage Renal Disease Interval History patient is complaining of abdominal pain and distension as well as constipation. Last bowel movement was 4 days ago[address]iscuss[address] with Dr. Ortega. She is scheduled for bronchoscopy tomorrow. Had dialysis yesterday. Review of Systems General Constitutional: Fatigue Respiratory Lungs: SOB, Cough, Sputum Gastrointestinal Gastrointestinal: Abdominal Pain, Constipation Objective Data Data Vital Signs Date Time Temp Pulse Resp B/P (MAP) Pulse Ox O2 Delivery O2 Flow Rate FiO2 05/30/17 10:01 58 05/30/17 09:00 60 05/30/17 08:04 98.5 59 18 185/59 (101) 97 05/30/17 08:00 60 05/30/17 07:00 56 05/30/17 06:00 62 05/30/17 05:00 60 05/30/17 04:00 60 05/30/17 03:10 64 18 158/73 (101) 99 05/30/17 03:00 63 05/30/17 02:00 60 05/30/17 01:00 64 05/30/17 00:00 62 05/29/17 23:30 98.4 63 16 155/63 (93) 96 05/29/17 23:00 63 05/29/17 22:00 62 05/29/17 21:06 Nasal Cannula 2.00 05/29/17 21:00 64 05/29/17 20:00 60 05/29/17 19:50 98.2 58 16 175/77 (109) 97 05/29/17 19:00 61 05/29/17 18:16 63 05/29/17 17:50 151/64 (93) 05/29/17 17:22 64 05/29/17 16:00 64 05/29/17 15:21 98.5 70 16 164/59 (94) 97 05/29/17 15:00 69 05/29/17 14:06 158/62 (94) 05/29/17 14:00 74 05/29/17 13:00 70 05/29/17 12:36 98.6 73 18 185/78 (113) 95 -: 05/27/17 1611 05/27/17 0659 Physical Exam General Appearance: Well Developed, No Acute Distress, Comfortable, Malnourished Throat Throat Exam: Oral Mucosa [place] & Moist Pulmonary Resp Exam: Crackles, Rhonchi, Sputum, Decreased Bases Cardiology CV Exam: Normal Sinus Rhythm, Good Perfusion Gastrointestinal/Abdomen GI Exam: Distended Musculoskeletal MS Exam: Joints Intact, Normal Tone, Good Strength Integumentary Skin Exam: Clear, Warm, Dry, Intact Extremeties Extremities Exam: No Edema, Pedal Pulses Palpable Neurologic Neuro Exam: Alert, Awake, Oriented, Speech Clear, Moving All Extremities Psychiatric Psych Exam: Appropriate Responses Assessment/Plan Discussed Condition With: Patient Assessment Summary: Anemia of CKD, Hypertension, End Stage Renal Disease Problem List: (1) End stage renal disease on dialysis ICD Codes: N18.6 - End stage renal disease; Z99.2 - Dependence on renal dialysis Status: Chronic Plan: Continue HD support TTS. Dialysis today as above. AVF is patent, protect left upper extremity Avoid IVF administration High protein, low phosphorus diet ordered Obtain intermittent renal profile. On calcium acetate for metabolic bone disorder (2) Chest pain ICD Codes: R07.9 - Chest pain, unspecified Status: Acute Plan: Mild elevation of troponin in the setting of renal failure No reports of chest pain currently (3) Pneumonia ICD Codes: J18.9 - Pneumonia, unspecified organism Plan: On cefepime Chest CT reviewed Continue Oxygen, nebulizers, IS, pulmonary toilet Bronchoscopy is planned. Oncology is also following given history of lung cancer. (4) Anemia ICD Codes: D64.9 - Anemia, unspecified Status: Acute Plan: Epogen with dialysis Problem Qualifiers (1) Chest pain: Qualified Codes: R07.9 - Chest pain, unspecified Gt Trejo MD May 30, 2017 11:26
[2017-05-30] MEDS: MULTIVITAMINS/MINERALS THERAPEUTIC TAB PO SCH (11:54)
[2017-05-30] MEDS: FENOFIBRATE 48 MG TAB PO SCH (11:54)
[2017-05-30] MEDS: CEFEPIME INJ 1,000 MG in SODIUM CHLORIDE 0.9% INJ 100 ML IV SCH (11:55)
[2017-05-30] MEDS: ONDANSETRON HCL 4 MG/2 ML VIAL IVP PRN (13:38)
[2017-05-30] MEDS: DOCUSATE SODIUM 50 MG/SENNA 8.6 MG TAB PO SCH (21:00)
[2017-05-30] MEDS: predniSONE 10 MG TAB PO SCH (21:17)
[2017-05-30] MEDS: FLUoxetine HCL 20 MG CAP PO SCH (21:17)
[2017-05-30] MEDS: ATORVASTATIN 10 MG TAB PO SCH (21:18)
[2017-05-31] VITALS (26 sets, daily range): BP systolic 129–162; BP diastolic 51–66; PULSE 50–64; RESP 16–18; TEMP 97.2–98.6; O2SAT 93–100
[2017-05-31] MEDS: HEPARIN SODIUM - SQ 10,000 UNITS/ML VIAL SQ SCH ×3 (02:57→23:14)
[2017-05-31] MEDS: ONDANSETRON HCL 4 MG/2 ML VIAL IVP PRN (03:52)
[2017-05-31] MEDS: LEVOTHYROXINE SODIUM 100 MCG TAB PO SCH (05:36)
[2017-05-31] MEDS: cloNIDine HCL 0.2 MG TAB PO SCH ×3 (05:36→20:58)
--- NOTE | 2017-05-31 07:51 | HHI.NPPN ---
Subjective General Problems: Anemia Renal Failure: Chronic, End Stage Renal Disease Interval History constipation is relieved. Feels better. NPO for bronchoscopy. Review of Systems General Constitutional: Fatigue Respiratory Lungs: SOB, Cough, Sputum Gastrointestinal Gastrointestinal: Abdominal Pain, Constipation Objective Data Data Vital Signs Date Time Temp Pulse Resp B/P (MAP) Pulse Ox O2 Delivery O2 Flow Rate FiO2 05/31/17 06:00 58 05/31/17 05:00 54 05/31/17 04:00 50 05/31/17 03:00 63 16 152/58 (89) 99 05/31/17 03:00 60 05/31/17 02:00 60 05/31/17 01:00 58 05/31/17 00:10 54 16 129/51 (77) 98 05/31/17 00:00 56 05/30/17 23:00 57 05/30/17 22:02 98 Nasal Cannula 2.00 05/30/17 22:00 52 05/30/17 21:00 56 05/30/17 20:00 97.8 53 16 135/63 (87) 100 05/30/17 20:00 52 05/30/17 19:00 54 05/30/17 18:29 Nasal Cannula 2.00 05/30/17 18:00 54 05/30/17 17:00 60 05/30/17 16:00 56 05/30/17 15:20 98.4 54 18 150/51 (84) 99 05/30/17 15:00 61 05/30/17 14:00 56 05/30/17 13:00 60 05/30/17 12:00 158/51 (86) 05/30/17 12:00 54 05/30/17 11:46 98.0 55 18 163/51 (88) 99 05/30/17 11:00 57 05/30/17 10:01 58 05/30/17 09:00 60 05/30/17 08:04 98.5 59 18 185/59 (101) 97 05/30/17 08:00 60 -: 05/27/17 1611 05/27/17 0659 Physical Exam General Appearance: Well Developed, No Acute Distress, Comfortable, Malnourished Throat Throat Exam: Oral Mucosa [place] & Moist Pulmonary Resp Exam: Crackles, Rhonchi, Sputum, Decreased Bases Cardiology CV Exam: Normal Sinus Rhythm, Good Perfusion Gastrointestinal/Abdomen GI Exam: Distended Musculoskeletal MS Exam: Joints Intact, Normal Tone, Good Strength Integumentary Skin Exam: Clear, Warm, Dry, Intact Extremeties Extremities Exam: No Edema, Pedal Pulses Palpable Neurologic Neuro Exam: Alert, Awake, Oriented, Speech Clear, Moving All Extremities Psychiatric Psych Exam: Appropriate Responses Assessment/Plan Discussed Condition With: Patient Assessment Summary: Anemia of CKD, Hypertension, End Stage Renal Disease Problem List: (1) End stage renal disease on dialysis ICD Codes: N18.6 - End stage renal disease; Z99.2 - Dependence on renal dialysis Status: Chronic Plan: Continue HD support TTS. AVF is patent, protect left upper extremity Avoid IVF administration High protein, low phosphorus diet ordered Obtain intermittent renal profile. On calcium acetate for metabolic bone disorder (2) Chest pain ICD Codes: R07.9 - Chest pain, unspecified Status: Acute Plan: Mild elevation of troponin in the setting of renal failure No reports of chest pain currently (3) Pneumonia ICD Codes: J18.9 - Pneumonia, unspecified organism Plan: On cefepime Chest CT has been reviewed. Continue Oxygen, nebulizers, IS, pulmonary toilet Bronchoscopy is planned. Oncology is also following given history of lung cancer. (4) Anemia ICD Codes: D64.9 - Anemia, unspecified Status: Acute Plan: Epogen with dialysis Problem Qualifiers (1) Chest pain: Qualified Codes: R07.9 - Chest pain, unspecified Gt Trejo MD May 31, 2017 07:51
[2017-05-31] MEDS: guaiFENesin E.R. 600 MG TAB PO SCH ×2 (08:34→20:54)
[2017-05-31] MEDS: predniSONE 10 MG TAB PO SCH ×2 (08:34→20:55)
[2017-05-31] MEDS: METOPROLOL SUCCINATE 25 MG EXTENDED RELEASE TAB PO SCH (08:34)
[2017-05-31] MEDS: ASPIRIN EC 81 MG TABEC PO SCH (08:34)
[2017-05-31] MEDS: PANTOPRAZOLE SOD 40 MG DELAYED RELEASE TAB PO SCH (08:35)
[2017-05-31] MEDS: LOSARTAN 50 MG TAB PO SCH (08:35)
[2017-05-31] MEDS: NIFEdipine 90 MG SUSTAINED RELEASE TAB PO SCH (08:35)
[2017-05-31] MEDS: VITAMIN B CMPLX/VITC/FOLIC AC CAP PO SCH (08:37)
[2017-05-31] MEDS: CALCIUM ACETATE 667 MG CAP PO SCH ×3 (08:38→17:33)
[2017-05-31] MEDS: SODIUM CHLORIDE 0.9% FLUSH 10 ML FLUSH IV FLUSH SCH ×2 (08:42→20:11)
--- NOTE | 2017-05-31 08:47 | PD.ONC.PN ---
Subjective Subjective Remarks Afebrile overnight. Patient complaining of a yeast infection in her mouth. she is hungry and wants to know if she can eat. Objective Data Date Time Temp Pulse Resp B/P (MAP) Pulse Ox O2 Delivery O2 Flow Rate FiO2 05/31/17 06:00 58 05/31/17 05:00 54 05/31/17 04:00 50 05/31/17 03:00 63 16 152/58 (89) 99 05/31/17 03:00 60 05/31/17 02:00 60 05/31/17 01:00 58 05/31/17 00:10 54 16 129/51 (77) 98 05/31/17 00:00 56 05/30/17 23:00 57 05/30/17 22:02 98 Nasal Cannula 2.00 05/30/17 22:00 52 05/30/17 21:00 56 05/30/17 20:00 97.8 53 16 135/63 (87) 100 05/30/17 20:00 52 05/30/17 19:00 54 05/30/17 18:29 Nasal Cannula 2.00 05/30/17 18:00 54 05/30/17 17:00 60 05/30/17 16:00 56 05/30/17 15:20 98.4 54 18 150/51 (84) 99 05/30/17 15:00 61 05/30/17 14:00 56 05/30/17 13:00 60 05/30/17 12:00 158/51 (86) 05/30/17 12:00 54 05/30/17 11:46 98.0 55 18 163/51 (88) 99 05/30/17 11:00 57 05/30/17 10:01 58 05/30/17 09:00 60 05/31/17 05/31/17 05/31/17 07:00 15:00 23:00 Intake Total 240 ml Output Total 250 ml Balance -10 ml Result Diagram: 05/27/17 1611 05/27/17 0659 Imaging Studies Last 24 hours Impressions Abdomen X-Ray 05/30/17 0953 Signed Impressions: Service Date/Time: Tuesday, May 30, 2017 10:38 - CONCLUSION: No free air. Dillan Mauricio MD FACR Administered Medications Medications (Trade) Dose Ordered Sig/Raheel Route PRN Reason Start Time Stop Time Status Last Admin Dose Admin Aspirin (Ecotrin Ec) 81 mg DAILY PO 05/26/17 09:00 05/31/17 08:34 Atorvastatin Calcium (Lipitor) 10 mg HS PO 05/25/17 21:00 05/30/17 21:18 Fluoxetine HCl (PROzac) 20 mg HS PO 05/25/17 21:00 05/30/17 21:17 Levothyroxine Sodium (Synthroid) 100 mcg DAILY@0600 PO 05/26/17 06:00 05/31/17 05:36 Losartan Potassium (Cozaar) 100 mg DAILY PO 05/26/17 09:00 05/31/17 08:35 Metoprolol Succinate (Toprol Xl) 25 mg DAILY PO 05/26/17 09:00 05/31/17 08:34 Nifedipine (Procardia Xl) 90 mg DAILY PO 05/26/17 09:00 05/31/17 08:35 Senna/Docusate Sodium (Irma-Colace) 4 tab HS PO 05/25/17 21:00 05/29/17 21:01 Fenofibrate (Tricor) 48 mg AC LUNCH PO 05/26/17 11:00 05/30/17 11:54 Multivitamins/ Minerals Therapeutic (Theragran M Tab) 1 tab AC LUNCH PO 05/26/17 11:00 05/30/17 11:54 Pantoprazole Sodium (Protonix) 40 mg DAILY PO 05/26/17 09:00 05/31/17 08:35 Clonidine (Catapres) 0.1 mg Q4H PRN PO SBP>160, DBP>90 05/25/17 12:45 05/29/17 15:26 Sodium Chloride (NS Flush) 2 ml UNSCH PRN IV FLUSH FLUSH AFTER USING IV ACCESS 05/25/17 12:45 05/25/17 14:42 Sodium Chloride (NS Flush) 2 ml BID IV FLUSH 05/25/17 21:00 05/31/17 08:42 Ondansetron HCl (Zofran Inj) 4 mg Q6H PRN IVP NAUSEA OR VOMITING 05/25/17 12:45 05/31/17 03:52 Heparin Sodium (Porcine) (Heparin Inj) 5,000 units Q12H SQ 05/25/17 14:00 05/31/17 02:57 Acetaminophen (Tylenol) 650 mg Q6H PRN PO PAIN SCALE 1 TO 2 05/25/17 12:45 05/29/17 23:10 Oxycodone/ Acetaminophen (Percocet 5-325 Mg) 1 tab Q6H PRN PO PAIN SCALE 3 TO 5 05/25/17 12:45 05/27/17 20:46 Morphine Sulfate (Morphine Inj) 2 mg Q3H PRN IV PUSH Pain 3-5; if unable to take PO 05/25/17 12:45 05/30/17 02:54 Morphine Sulfate (Morphine Inj) 4 mg Q3H PRN IV PUSH Pain 6-10;if unable to take PO 05/25/17 12:45 05/25/17 14:42 Sennosides (Senokot) 17.2 mg Q12H PRN PO Moderate constipation 05/25/17 12:45 05/30/17 08:11 Guaifenesin (Mucinex Er) 600 mg BID PO 05/25/17 12:45 05/31/17 08:34 Ondansetron HCl (Zofran Inj) 4 mg UNSCH PRN IV PUSH WITH DIALYSIS 05/25/17 15:30 05/27/17 20:44 Clonidine (Catapres) 0.1 mg UNSCH PRN PO for BP > 180/100 X 2 readings 05/25/17 15:30 05/29/17 09:31 Gelatin (Gelfoam 12 Mm/7 Mm Top) 1 foam UNSCH PRN TOP SEE LABEL COMMENTS 05/25/17 15:30 05/29/17 11:50 Cefepime HCl 1000 mg/Sodium Chloride 100 ml @ 200 mls/hr Q24H IV 05/26/17 10:00 05/30/17 11:55 Epoetin Rohan (Epogen Inj) 10,000 units UNSCH PRN IV PUSH WITH DIALYSIS 05/27/17 09:15 05/29/17 11:50 Calcium Acetate (Phoslo) 667 mg TID PO 05/27/17 13:00 05/30/17 18:38 Vitamin B Complex/ Vit C/Folic Acid (Nephrocaps) 1 cap DAILY PO 05/27/17 10:15 05/31/17 08:37 Clonidine (Catapres) 0.3 mg Q8HR PO 05/29/17 14:00 05/31/17 05:36 Prednisone (Deltasone) 10 mg BID PO 05/30/17 21:00 05/31/17 08:34 Objective Remarks GENERAL: pleasant elderly female, lying in bed in nad. SKIN: Warm and dry. HEAD: Normocephalic. EYES: No injection or drainage. MOUTH: +oral thrush. NECK: Supple, trachea midline. CARDIOVASCULAR: Regular rate and rhythm RESPIRATORY: coarse, scattered rhonchi. On O2 via NC GASTROINTESTINAL: Abdomen soft, non-tender, nondistended. EXTREMITIES: No cyanosis NEUROLOGICAL: awake, alert. normal speech Assessment/Plan Problem List: (1) Lung cancer ICD Codes: C34.90 - Malignant neoplasm of unspecified part of unspecified bronchus or lung Plan: History: ++multiple masses in bilateral lungs. Biopsy showed adenocarcinoma. She received stereotactic radiation to 2 lesions in the left lung and 1 on the right. Her PET scan 09/2016 showed post-radiation changes in bilateral lungs. A CT scan in March showed a diffuse consolidation in the right upper lobe, but they appeared to be more consolidated. repeat PET scan again 04/28, which showed increased hypermetabolic uptake in the left hilar area suspicious for recurrent disease + hypermetabolic activity in right upper lobe with corresponding consolidation, but appeared to be stable and likely radiation changes. (2) Anemia due to chronic kidney disease ICD Codes: N18.9 - Chronic kidney disease, unspecified; D63.1 - Anemia in chronic kidney disease Plan: -- receiving Epogen with dialysis. Assessment 81y/o female with NSCLC admitted with hypoxia, hemoptysis. history of end-stage renal disease. Hypertension. Hyperlipidemia. Congestive heart failure. Hypothyroidism. Osteoarthritis. Chronic obstructive pulmonary disease. Gastroesophageal reflux disease. Diverticulitis. Plan 1. start oral nystatin 2. oncology clear for discharge. 3. follow up in clinic upon discharge. Attending Statement The exam, history, and the medical decision-making described in the above note were completed with the assistance of the mid-level provider. I reviewed and agree with the findings presented. I attest that I had a [id number] encounter with the patient on the same day, and personally performed and documented my assessment and findings in the medical record. Cough and SOB improved. No more hemoptysis. Can be d/c once clear by pulmonology. F/u with Rad Onc for XRT after d/c. Jaylin Regalado May 31, 2017 08:47 Edmundo Gonsalez MD May 31, 2017 15:43
[2017-05-31] MEDS: NYSTATIN SUSP 500,000 U/5 ML CUP SWISH-SWAL SCH ×6 (09:00→20:56)
[2017-05-31] MEDS: CEFEPIME INJ 1,000 MG in SODIUM CHLORIDE 0.9% INJ 100 ML IV SCH (09:52)
[2017-05-31] MEDS: MULTIVITAMINS/MINERALS THERAPEUTIC TAB PO SCH (11:22)
[2017-05-31] MEDS: FENOFIBRATE 48 MG TAB PO SCH (11:22)
--- NOTE | 2017-05-31 16:08 | HHI.PR ---
Subjective Remarks ALERT, UP AT SIDE OF BED MINOR HEMOPTYSIS Objective Vital Signs Date Time Temp Pulse Resp B/P (MAP) Pulse Ox O2 Delivery O2 Flow Rate FiO2 05/31/17 12:26 2.00 05/31/17 12:17 57 05/31/17 11:27 97.2 51 18 144/59 (87) 94 05/31/17 11:00 58 05/31/17 10:34 59 05/31/17 09:00 52 05/31/17 08:50 98.2 59 18 159/60 (93) 93 05/31/17 08:00 58 05/31/17 07:00 58 05/31/17 06:00 58 05/31/17 05:00 54 05/31/17 04:00 50 05/31/17 03:00 63 16 152/58 (89) 99 05/31/17 03:00 60 05/31/17 02:00 60 05/31/17 01:00 58 05/31/17 00:10 54 16 129/51 (77) 98 05/31/17 00:00 56 05/30/17 23:00 57 05/30/17 22:02 98 Nasal Cannula 2.00 05/30/17 22:00 52 05/30/17 21:00 56 05/30/17 20:00 97.8 53 16 135/63 (87) 100 05/30/17 20:00 52 05/30/17 19:00 54 05/30/17 18:29 Nasal Cannula 2.00 05/30/17 18:00 54 05/30/17 17:00 60 I/O 05/30/17 05/30/17 05/30/17 05/31/17 05/31/17 05/31/17 07:00 15:00 23:00 07:00 15:00 23:00 Intake Total 240 ml 100 ml 480 ml 240 ml Output Total 300 ml 350 ml 250 ml 1 ml Balance -60 ml 100 ml 130 ml -10 ml -1 ml Intake Oral 240 ml 480 ml 240 ml IV Total 100 ml Output Urine Total 300 ml 350 ml 250 ml Stool Total 1 ml # Bowel Movements 0 5 1 Result Diagram: 05/27/17 1611 05/27/17 0659 Objective Remarks GENERAL: SKIN: Warm and dry. HEAD: Atraumatic. Normocephalic. EYES: Pupils equal and round. No scleral icterus. No injection or drainage. ENT: No nasal bleeding or discharge. Mucous membranes pink and moist. NECK: Trachea midline. No JVD. CARDIOVASCULAR: Regular rate and rhythm. RESPIRATORY: No accessory muscle use. SCATTERED RHONCHI to auscultation. Breath sounds equal bilaterally. GASTROINTESTINAL: Abdomen soft, non-tender, nondistended. Hepatic and splenic margins not palpable. MUSCULOSKELETAL: Extremities without clubbing, cyanosis, or edema. No obvious deformities. NEUROLOGICAL: Awake and alert. No obvious cranial nerve deficits. Motor grossly within normal limits. Five out of 5 muscle strength in the arms and legs. Normal speech. PSYCHIATRIC: Appropriate mood and affect; insight and judgment normal. Assessment and Plan Assessment and Plan OMPRESSION BILATERAL LUNG INFILTRATES HEMOPTYSIS LUNG CA ESRD ON MHD PLAN ANTIBX BRONCHOSCOPY CANCELLED PATIENT ATE WILL PROCEED iN AM Ciarra Lafleur MD May 31, 2017 16:08
[2017-05-31] MEDS ORDERED: RESP: ALBUTEROL CONC 2.5 MG/0.5 ML NEB NEB SCH (16:15)
[2017-05-31] MEDS ORDERED: RESP: LIDOCAINE HCL 4% PF 5 ML NEB NEB SCH (16:15)
[2017-05-31 17:19] LABS: BASOPHIL % 0.2 % (0.0-2.0); EOSINOPHIL # 0.1 TH/MM3 (0-0.4); EOSINOPHIL % 1.3 % (0.0-4.0); HEMATOCRIT 34.9 % (35.0-46.0); HEMOGLOBIN 11.4 GM/DL (11.6-15.3); LYMPHOCYTE # 0.7 TH/MM3 (1.0-4.8); MEAN CELL VOLUME 99.4 FL (80.0-100.0); MEAN CORPUSCULAR HEMOGLOBIN 32.5 PG (27.0-34.0); MEAN CORPUSCULAR HGB CONC 32.6 % (32.0-36.0); MEAN PLATELET VOLUME 8.9 FL (7.0-11.0); MONOCYTE # 0.6 TH/MM3 (0-0.9); NEUT % 81.5 % (16.0-70.0); PLATELET COUNT 172 TH/MM3 (150-450); RED BLOOD COUNT 3.51 MIL/MM3 (4.00-5.30); RED CELL DISTRIBUTION WIDTH 16.2 % (11.6-17.2); WHITE BLOOD COUNT 7.4 TH/MM3 (4.0-11.0)
[2017-05-31 17:30] LABS: PROTHROMBIN TIME - PATIENT 10.4 SEC (9.8-11.6)
[2017-05-31] MEDS: ONDANSETRON HCL 4 MG/2 ML VIAL IV PUSH PRN (20:11)
[2017-05-31] MEDS: DOCUSATE SODIUM 50 MG/SENNA 8.6 MG TAB PO SCH (20:55)
[2017-05-31] MEDS: FLUoxetine HCL 20 MG CAP PO SCH (20:55)
[2017-05-31] MEDS: ATORVASTATIN 10 MG TAB PO SCH (20:55)
--- NOTE | 2017-05-31 20:58 | HHI.PR ---
Subjective Remarks 81-year-old female with cough and hypoxemia that is suspicious for pneumonia. He states he has not had any subjective fevers and denies any nausea or vomiting. Objective Vitals Vital Signs Date Time Temp Pulse Resp B/P (MAP) Pulse Ox O2 Delivery O2 Flow Rate FiO2 05/31/17 20:06 98.6 56 162/66 (98) 100 05/31/17 18:45 55 05/31/17 16:30 64 05/31/17 16:11 58 05/31/17 16:00 98.4 64 18 152/56 (88) 98 05/31/17 12:26 2.00 05/31/17 12:17 57 05/31/17 11:27 97.2 51 18 144/59 (87) 94 05/31/17 11:00 58 05/31/17 10:34 59 05/31/17 09:00 52 05/31/17 08:50 98.2 59 18 159/60 (93) 93 05/31/17 08:00 58 05/31/17 07:00 58 05/31/17 06:00 58 05/31/17 05:00 54 05/31/17 04:00 50 05/31/17 03:00 63 16 152/58 (89) 99 05/31/17 03:00 60 05/31/17 02:00 60 05/31/17 01:00 58 05/31/17 00:10 54 16 129/51 (77) 98 05/31/17 00:00 56 05/30/17 23:00 57 05/30/17 22:02 98 Nasal Cannula 2.00 05/30/17 22:00 52 05/30/17 21:00 56 I/O 05/30/17 05/30/17 05/30/17 05/31/17 05/31/17 05/31/17 07:00 15:00 23:00 07:00 15:00 23:00 Intake Total 240 ml 100 ml 480 ml 240 ml Output Total 300 ml 350 ml 250 ml 1 ml Balance -60 ml 100 ml 130 ml -10 ml -1 ml Intake Oral 240 ml 480 ml 240 ml IV Total 100 ml Output Urine Total 300 ml 350 ml 250 ml Stool Total 1 ml # Bowel Movements 0 5 1 Result Diagram: 05/31/17 1703 05/27/17 0659 Objective Remarks GENERAL: Alert and oriented, poor eyesight, weak appearing SKIN: Warm and dry. HEAD: Normocephalic. EYES: No scleral icterus. No injection or drainage. NECK: Supple, trachea midline. No JVD or lymphadenopathy. CARDIOVASCULAR: Regular rate and rhythm 1/6 HARRISON, gallops, or rubs. RESPIRATORY: Breath sounds equal bilaterally. No accessory muscle use. GASTROINTESTINAL: Abdomen soft, non-tender, nondistended. EXTREMITIES: No cyanosis, or edema. NEUROLOGICAL: Awake, alert, and oriented x 3. Non-focal. Procedures HD A/P Problem List: (1) PNA (pneumonia) ICD Code: J18.9 - Pneumonia, unspecified organism Status: Acute (2) End stage renal disease on dialysis ICD Code: N18.6 - End stage renal disease; Z99.2 - Dependence on renal dialysis Status: Chronic (3) COPD exacerbation ICD Code: J44.1 - Chronic obstructive pulmonary disease with (acute) exacerbation Status: Acute (4) Accelerated hypertension ICD Code: I10 - Essential (primary) hypertension Status: Acute (5) Lung cancer ICD Code: C34.90 - Malignant neoplasm of unspecified part of unspecified bronchus or lung (6) Fluid overload ICD Code: E87.70 - Fluid overload, unspecified (7) Chest pain ICD Code: R07.9 - Chest pain, unspecified Status: Acute Assessment and Plan Fluid overload with hypoxemia She denies missing dialysis treatment, this raises suspicion for cardiac causes Manage hypertension with clonidine 0.3 mg p.o. 3 times daily 10 year Procardia 90 mg XL, Cozaar 100 mg, Metoprolol daily Mild elevation of troponin on admission Supplemental oxygen Pneumonia/COPD/hemoptysis Continue with supportive care including oxygen, nebulizers, steroids, Mucinex Continuing antibiotic coverage with cefepime Encourage incentive spirometry Was unable to undergo bronchoscopy to investigate hemoptysis today due to eating much Appreciate pulmonology consult ESRD on HD Receiving dialysis 3 times per week, denies missing any treatment Appreciate nephrology following Abdominal pain Likely due to constipation History of sigmoid surgery many years ago Continue with senna and other softeners GERD, hyperlipidemia, hypothyroidism continue on home medications DVT prophylaxis heparin Problem Qualifiers (1) Chest pain: Qualified Codes: R07.9 - Chest pain, unspecified Nish Vazquez MD May 31, 2017 20:58
[2017-05-31] MEDS: MORPHINE SULFATE 2 MG/ML SYRINGE IV PUSH PRN (21:03)
[2017-05-31] MEDS: SODIUM CHLORIDE 0.9% FLUSH 10 ML FLUSH IV FLUSH PRN (21:12)
[2017-06-01] VITALS (20 sets, daily range): BP systolic 128–200; BP diastolic 45–84; PULSE 48–69; RESP 16–18; TEMP 97.9–98.5; O2SAT 94–98
[2017-06-01] MEDS: cloNIDine HCL 0.2 MG TAB PO SCH ×3 (05:42→21:08)
[2017-06-01] MEDS: LEVOTHYROXINE SODIUM 100 MCG TAB PO SCH (05:47)
--- NOTE | 2017-06-01 07:41 | PD.ONC.PN ---
Subjective Subjective Remarks SOB/cough improving. No more hemoptysis. Objective Data Date Time Temp Pulse Resp B/P (MAP) Pulse Ox O2 Delivery O2 Flow Rate FiO2 06/01/17 06:04 48 06/01/17 05:01 53 06/01/17 04:00 57 06/01/17 03:48 98.1 50 16 128/45 (72) 98 06/01/17 03:05 49 06/01/17 02:04 50 06/01/17 01:04 50 06/01/17 00:49 97.9 53 16 139/53 (81) 98 06/01/17 00:03 51 05/31/17 23:03 55 05/31/17 22:04 52 05/31/17 21:03 52 05/31/17 20:06 98.6 56 162/66 (98) 100 05/31/17 20:00 57 05/31/17 19:01 58 05/31/17 18:45 55 05/31/17 16:30 64 05/31/17 16:11 58 05/31/17 16:00 98.4 64 18 152/56 (88) 98 05/31/17 12:26 2.00 05/31/17 12:17 57 05/31/17 11:27 97.2 51 18 144/59 (87) 94 05/31/17 11:00 58 05/31/17 10:34 59 05/31/17 09:00 52 05/31/17 08:50 98.2 59 18 159/60 (93) 93 05/31/17 08:00 58 06/01/17 06/01/17 06/01/17 07:00 15:00 23:00 Output Total 200 ml Balance -200 ml Result Diagram: 05/31/17 0437 Laboratory Results Laboratory Tests Test 05/31/17 17:03 White Blood Count 7.4 TH/MM3 Red Blood Count 3.51 MIL/MM3 Hemoglobin 11.4 GM/DL Hematocrit 34.9 % Mean Corpuscular Volume 99.4 FL Mean Corpuscular Hemoglobin 32.5 PG Mean Corpuscular Hemoglobin Concent 32.6 % Red Cell Distribution Width 16.2 % Platelet Count 172 TH/MM3 Mean Platelet Volume 8.9 FL Neutrophils (%) (Auto) 81.5 % Lymphocytes (%) (Auto) 9.0 % Monocytes (%) (Auto) 8.0 % Eosinophils (%) (Auto) 1.3 % Basophils (%) (Auto) 0.2 % Neutrophils # (Auto) 6.0 TH/MM3 Lymphocytes # (Auto) 0.7 TH/MM3 Monocytes # (Auto) 0.6 TH/MM3 Eosinophils # (Auto) 0.1 TH/MM3 Basophils # (Auto) 0.0 TH/MM3 CBC Comment DIFF FINAL Differential Comment Prothrombin Time 10.4 SEC Prothromb Time International Ratio 1.0 RATIO Activated Partial Thromboplast Time 25.1 SEC Administered Medications Medications (Trade) Dose Ordered Sig/Raheel Route PRN Reason Start Time Stop Time Status Last Admin Dose Admin Aspirin (Ecotrin Ec) 81 mg DAILY PO 05/26/17 09:00 05/31/17 08:34 Atorvastatin Calcium (Lipitor) 10 mg HS PO 05/25/17 21:00 05/31/17 20:55 Fluoxetine HCl (PROzac) 20 mg HS PO 05/25/17 21:00 05/31/17 20:55 Levothyroxine Sodium (Synthroid) 100 mcg DAILY@0600 PO 05/26/17 06:00 06/01/17 05:47 Losartan Potassium (Cozaar) 100 mg DAILY PO 05/26/17 09:00 05/31/17 08:35 Metoprolol Succinate (Toprol Xl) 25 mg DAILY PO 05/26/17 09:00 05/31/17 08:34 Nifedipine (Procardia Xl) 90 mg DAILY PO 05/26/17 09:00 05/31/17 08:35 Senna/Docusate Sodium (Irma-Colace) 4 tab HS PO 05/25/17 21:00 05/31/17 20:55 Fenofibrate (Tricor) 48 mg AC LUNCH PO 05/26/17 11:00 05/31/17 11:22 Multivitamins/ Minerals Therapeutic (Theragran M Tab) 1 tab AC LUNCH PO 05/26/17 11:00 05/31/17 11:22 Pantoprazole Sodium (Protonix) 40 mg DAILY PO 05/26/17 09:00 05/31/17 08:35 Clonidine (Catapres) 0.1 mg Q4H PRN PO SBP>160, DBP>90 05/25/17 12:45 05/29/17 15:26 Sodium Chloride (NS Flush) 2 ml UNSCH PRN IV FLUSH FLUSH AFTER USING IV ACCESS 05/25/17 12:45 05/31/17 21:12 Sodium Chloride (NS Flush) 2 ml BID IV FLUSH 05/25/17 21:00 05/31/17 20:11 Ondansetron HCl (Zofran Inj) 4 mg Q6H PRN IVP NAUSEA OR VOMITING 05/25/17 12:45 05/31/17 03:52 Heparin Sodium (Porcine) (Heparin Inj) 5,000 units Q12H SQ 05/25/17 14:00 05/31/17 14:31 Acetaminophen (Tylenol) 650 mg Q6H PRN PO PAIN SCALE 1 TO 2 05/25/17 12:45 05/29/17 23:10 Oxycodone/ Acetaminophen (Percocet 5-325 Mg) 1 tab Q6H PRN PO PAIN SCALE 3 TO 5 05/25/17 12:45 05/27/17 20:46 Morphine Sulfate (Morphine Inj) 2 mg Q3H PRN IV PUSH Pain 3-5; if unable to take PO 05/25/17 12:45 05/31/17 21:03 Morphine Sulfate (Morphine Inj) 4 mg Q3H PRN IV PUSH Pain 6-10;if unable to take PO 05/25/17 12:45 05/25/17 14:42 Sennosides (Senokot) 17.2 mg Q12H PRN PO Moderate constipation 05/25/17 12:45 05/30/17 08:11 Guaifenesin (Mucinex Er) 600 mg BID PO 05/25/17 12:45 05/31/17 20:54 Ondansetron HCl (Zofran Inj) 4 mg UNSCH PRN IV PUSH WITH DIALYSIS 05/25/17 15:30 05/31/17 20:11 Clonidine (Catapres) 0.1 mg UNSCH PRN PO for BP > 180/100 X 2 readings 05/25/17 15:30 05/29/17 09:31 Gelatin (Gelfoam 12 Mm/7 Mm Top) 1 foam UNSCH PRN TOP SEE LABEL COMMENTS 05/25/17 15:30 05/29/17 11:50 Cefepime HCl 1000 mg/Sodium Chloride 100 ml @ 200 mls/hr Q24H IV 05/26/17 10:00 05/31/17 09:52 Epoetin Rohan (Epogen Inj) 10,000 units UNSCH PRN IV PUSH WITH DIALYSIS 05/27/17 09:15 05/29/17 11:50 Calcium Acetate (Phoslo) 667 mg TID PO 05/27/17 13:00 05/31/17 17:33 Vitamin B Complex/ Vit C/Folic Acid (Nephrocaps) 1 cap DAILY PO 05/27/17 10:15 05/31/17 08:37 Clonidine (Catapres) 0.3 mg Q8HR PO 05/29/17 14:00 05/31/17 20:58 Prednisone (Deltasone) 10 mg BID PO 05/30/17 21:00 05/31/17 20:55 Nystatin (Mycostatin Liq) 5 ml QID SWISH-SWAL 05/31/17 09:00 05/31/17 20:56 Objective Remarks GENERAL: Well-nourished, well-developed patient. SKIN: Warm and dry. HEAD: Normocephalic. EYES: No scleral icterus. No injection or drainage. NECK: Supple, trachea midline. No JVD or lymphadenopathy. LYMPHATIC: No adenopathy. CARDIOVASCULAR: Regular rate and rhythm without murmurs. RESPIRATORY: Breath sounds equal bilaterally, bibasilar crackles. No accessory muscle use. GASTROINTESTINAL: Abdomen soft, non-tender, nondistended. EXTREMITIES: No cyanosis, or edema. MUSCULOSKELETAL: Adequate muscle tone. NEUROLOGICAL: No obvious focal deficit. Awake, alert, and oriented x3. PSYCHIATRIC: Appropriate mood and affect; insight and judgment normal. Assessment/Plan Problem List: (1) Lung cancer ICD Codes: C34.90 - Malignant neoplasm of unspecified part of unspecified bronchus or lung Plan: History: ++multiple masses in bilateral lungs. Biopsy showed adenocarcinoma. She received stereotactic radiation to 2 lesions in the left lung and 1 on the right. Her PET scan 09/2016 showed post-radiation changes in bilateral lungs. A CT scan in March showed a diffuse consolidation in the right upper lobe, but they appeared to be more consolidated. repeat PET scan again 04/28, which showed increased hypermetabolic uptake in the left hilar area suspicious for recurrent disease + hypermetabolic activity in right upper lobe with corresponding consolidation, but appeared to be stable and likely radiation changes. (2) Anemia due to chronic kidney disease ICD Codes: N18.9 - Chronic kidney disease, unspecified; D63.1 - Anemia in chronic kidney disease Plan: -- receiving Epogen with dialysis. Hgb stable. (3) Pneumonia ICD Codes: J18.9 - Pneumonia, unspecified organism Plan: Symptoms improving. Await possible bronchoscopy. Assessment 81y/o female with NSCLC admitted with hypoxia, hemoptysis. history of end-stage renal disease. Hypertension. Hyperlipidemia. Congestive heart failure. Hypothyroidism. Osteoarthritis. Chronic obstructive pulmonary disease. Gastroesophageal reflux disease. Diverticulitis. Plan 1. Await possible bronchoscopy 2. Can be discharge once clear by pulmonology. 3. follow up in oncology clinic upon discharge. 4. F/u with rad once for XRT planning after d/c. Edmundo Gonsalez MD Jun 01, 2017 07:41
[2017-06-01] MEDS: guaiFENesin E.R. 600 MG TAB PO SCH ×2 (09:00→21:09)
[2017-06-01] MEDS: CALCIUM ACETATE 667 MG CAP PO SCH ×3 (09:00→19:16)
[2017-06-01] MEDS: ASPIRIN EC 81 MG TABEC PO SCH (09:00)
[2017-06-01] MEDS: NYSTATIN SUSP 500,000 U/5 ML CUP SWISH-SWAL SCH ×4 (09:00→23:00)
[2017-06-01] MEDS: cloNIDine HCL 0.1 MG TAB PO PRN ×2 (10:01→10:30)
[2017-06-01] MEDS: FENOFIBRATE 48 MG TAB PO SCH (11:00)
[2017-06-01] MEDS: MULTIVITAMINS/MINERALS THERAPEUTIC TAB PO SCH (11:00)
--- NOTE | 2017-06-01 11:17 | HHI.NPPN ---
Subjective General Problems: Anemia Renal Failure: Chronic, End Stage Renal Disease Interval History Seen during dialysis. She is hypertensive during treatment, systolic BP 200s. Given clonidine 0.2 mg. NPO for bronch today. (Milana Sandoavl) Review of Systems General Constitutional: Fatigue (Milana Sandoval) Respiratory Lungs: SOB, Cough, Sputum (Milana Sandoval) Gastrointestinal Gastrointestinal: Abdominal Pain, Constipation (Milana Sandoval) Objective Data Data Vital Signs Date Time Temp Pulse Resp B/P (MAP) Pulse Ox O2 Delivery O2 Flow Rate FiO2 06/01/17 08:00 98.5 56 16 158/57 (90) 96 06/01/17 06:04 48 06/01/17 05:01 53 06/01/17 04:00 57 06/01/17 03:48 98.1 50 16 128/45 (72) 98 06/01/17 03:05 49 06/01/17 02:04 50 06/01/17 01:04 50 06/01/17 00:49 97.9 53 16 139/53 (81) 98 06/01/17 00:03 51 05/31/17 23:03 55 05/31/17 22:04 52 05/31/17 21:03 52 05/31/17 20:06 98.6 56 162/66 (98) 100 05/31/17 20:00 57 05/31/17 19:01 58 05/31/17 18:45 55 05/31/17 16:30 64 05/31/17 16:11 58 05/31/17 16:00 98.4 64 18 152/56 (88) 98 05/31/17 12:26 2.00 05/31/17 12:17 57 05/31/17 11:27 97.2 51 18 144/59 (87) 94 (Milana Sandoval) -: 05/31/17 1703 Imaging Last 72 hours Impressions Abdomen X-Ray 05/30/17 0953 Signed Impressions: Service Date/Time: Tuesday, May 30, 2017 10:38 - CONCLUSION: No free air. Dillan Mauricio MD FACR (Milana Sandoval) Physical Exam General Appearance: Well Developed, No Acute Distress, Comfortable, Malnourished (Milana Sandoval) Throat Throat Exam: Oral Mucosa [place] & Moist (Milana Sandoval) Pulmonary Resp Exam: Breath Sounds Equal, Crackles, Rhonchi, Sputum, Decreased Bases (Milana Sandoval) Cardiology CV Exam: Normal Sinus Rhythm, Good Perfusion (Milana Sandoval) Gastrointestinal/Abdomen GI Exam: Distended (Milana Sandoval) Musculoskeletal MS Exam: Joints Intact, Normal Tone, Good Strength (Milana Sandoval) Integumentary Skin Exam: Clear, Warm, Dry, Intact (Milana Sandoval) Extremeties Extremities Exam: No Edema, Pedal Pulses Palpable (Milana Sandoval) Neurologic Neuro Exam: Alert, Awake, Oriented, Speech Clear, Moving All Extremities (Milana Sandoval) Psychiatric Psych Exam: Appropriate Responses (Milana Sandoval) Assessment/Plan Discussed Condition With: Patient Assessment Summary: Anemia of CKD, Hypertension, End Stage Renal Disease Problem List: (1) End stage renal disease on dialysis ICD Codes: N18.6 - End stage renal disease; Z99.2 - Dependence on renal dialysis Status: Chronic Plan: Seen during dialysis today on a 2K, 350 BFR, goal 1.5L Continue HD support TTS. AVF is patent, protect left upper extremity Avoid IVF administration High protein, low phosphorus diet ordered Obtain intermittent renal profile. On calcium acetate for metabolic bone disorder (2) Chest pain ICD Codes: R07.9 - Chest pain, unspecified Status: Acute Plan: Mild elevation of troponin in the setting of renal failure No reports of chest pain currently (3) Pneumonia ICD Codes: J18.9 - Pneumonia, unspecified organism Plan: On cefepime Chest CT has been reviewed. Continue Oxygen, nebulizers, IS, pulmonary toilet Bronchoscopy is planned today Oncology is also following given history of lung cancer. (4) Anemia ICD Codes: D64.9 - Anemia, unspecified Status: Acute Plan: Epogen with dialysis Plan cleared for discharge from renal perspective (Milana Sandoval) Plan patient was seen and examined. Agree with above assessment and plan. (Gt Trejo MD) Problem Qualifiers (1) Chest pain: Qualified Codes: R07.9 - Chest pain, unspecified Milana SandovalP Jun 01, 2017 11:17 Gt Trejo MD Jun 02, 2017 09:04
[2017-06-01] MEDS: EPOETIN ALFA 10,000 UNITS/ML VIAL IV PUSH PRN (11:35)
[2017-06-01] MEDS: GELATIN 12 MM/7 MM FOAM TOP PRN (11:49)
[2017-06-01] MEDS: VITAMIN B CMPLX/VITC/FOLIC AC CAP PO SCH (13:16)
[2017-06-01] MEDS: LOSARTAN 50 MG TAB PO SCH (13:16)
[2017-06-01] MEDS: NIFEdipine 90 MG SUSTAINED RELEASE TAB PO SCH (13:16)
[2017-06-01] MEDS: METOPROLOL SUCCINATE 25 MG EXTENDED RELEASE TAB PO SCH (13:17)
[2017-06-01] MEDS: PANTOPRAZOLE SOD 40 MG DELAYED RELEASE TAB PO SCH (13:17)
[2017-06-01] MEDS: predniSONE 10 MG TAB PO SCH ×2 (13:17→21:09)
[2017-06-01] MEDS: CEFEPIME INJ 1,000 MG in SODIUM CHLORIDE 0.9% INJ 100 ML IV SCH (13:18)
[2017-06-01] MEDS: SODIUM CHLORIDE 0.9% FLUSH 10 ML FLUSH IV FLUSH SCH ×2 (13:19→20:11)
[2017-06-01] MEDS: HEPARIN SODIUM - SQ 10,000 UNITS/ML VIAL SQ SCH (14:00)
--- NOTE | 2017-06-01 14:51 | HHI.PR ---
Subjective Remarks 82-year-old female awaiting bronchoscopy today, her complaint is that she is hungry for the last 4 days. Objective Vitals Vital Signs Date Time Temp Pulse Resp B/P (MAP) Pulse Ox O2 Delivery O2 Flow Rate FiO2 06/01/17 13:38 98 Nasal Cannula 2.00 06/01/17 08:10 51 06/01/17 08:00 98.5 56 16 158/57 (90) 96 06/01/17 06:04 48 06/01/17 05:01 53 06/01/17 04:00 57 06/01/17 03:48 98.1 50 16 128/45 (72) 98 06/01/17 03:05 49 06/01/17 02:04 50 06/01/17 01:04 50 06/01/17 00:49 97.9 53 16 139/53 (81) 98 06/01/17 00:03 51 05/31/17 23:03 55 05/31/17 22:04 52 05/31/17 21:03 52 05/31/17 20:06 98.6 56 162/66 (98) 100 05/31/17 20:00 57 05/31/17 19:01 58 05/31/17 18:45 55 05/31/17 16:30 64 05/31/17 16:11 58 05/31/17 16:00 98.4 64 18 152/56 (88) 98 I/O 05/31/17 05/31/17 05/31/17 06/01/17 06/01/17 06/01/17 07:00 15:00 23:00 07:00 15:00 23:00 Intake Total 240 ml 480 ml Output Total 250 ml 1 ml 0 ml 200 ml 1200 ml Balance -10 ml -1 ml 480 ml -200 ml -1200 ml Intake Oral 240 ml 480 ml Output Urine Total 250 ml 0 ml 200 ml Stool Total 1 ml Hemodialysis 1200 ml # Bowel Movements 1 0 Result Diagram: 05/31/17 638 Objective Remarks GENERAL: Alert and oriented, poor eyesight, weak appearing SKIN: Warm and dry. HEAD: Normocephalic. EYES: No scleral icterus. No injection or drainage. NECK: Supple, trachea midline. No JVD or lymphadenopathy. CARDIOVASCULAR: Regular rate and rhythm 1/6 HARRISON, gallops, or rubs. RESPIRATORY: Breath sounds equal bilaterally. No accessory muscle use. GASTROINTESTINAL: Abdomen soft, non-tender, nondistended. EXTREMITIES: No cyanosis, or edema. NEUROLOGICAL: Awake, alert, and oriented x 3. Non-focal. Procedures HD A/P Problem List: (1) PNA (pneumonia) ICD Code: J18.9 - Pneumonia, unspecified organism Status: Acute (2) End stage renal disease on dialysis ICD Code: N18.6 - End stage renal disease; Z99.2 - Dependence on renal dialysis Status: Chronic (3) COPD exacerbation ICD Code: J44.1 - Chronic obstructive pulmonary disease with (acute) exacerbation Status: Acute (4) Accelerated hypertension ICD Code: I10 - Essential (primary) hypertension Status: Acute (5) Lung cancer ICD Code: C34.90 - Malignant neoplasm of unspecified part of unspecified bronchus or lung (6) Fluid overload ICD Code: E87.70 - Fluid overload, unspecified (7) Chest pain ICD Code: R07.9 - Chest pain, unspecified Status: Acute Assessment and Plan Fluid overload with hypoxemia She denies missing dialysis treatment, this raises suspicion for cardiac causes Manage hypertension with clonidine 0.3 mg p.o. 3 times daily 10 year Procardia 90 mg XL, Cozaar 100 mg, Metoprolol daily Mild elevation of troponin on admission Supplemental oxygen Pneumonia/COPD/hemoptysis Continue with supportive care including oxygen, nebulizers, steroids, Mucinex Continuing antibiotic coverage with cefepime Encourage incentive spirometry Scheduled for bronchoscopy today Appreciate pulmonology consult ESRD on HD Receiving dialysis 3 times per week, denies missing any treatment Appreciate nephrology following Abdominal pain Likely due to constipation History of sigmoid surgery many years ago Continue with senna and other softeners GERD, hyperlipidemia, hypothyroidism continue on home medications DVT prophylaxis heparin Problem Qualifiers (1) Chest pain: Qualified Codes: R07.9 - Chest pain, unspecified Nish Vazquez MD Jun 01, 2017 14:51
[2017-06-01] MEDS ORDERED: DO NOT ADM ANY ANTICOAGULANT DRUGS PRN (15:55)
[2017-06-01] MEDS ORDERED: *ENALAPRILAT 1.25 MG/ML VIAL PERIprocedural Use ONLY ONE ×2 (16:02→16:33)
[2017-06-01] MEDS ORDERED: *ONDANSETRON 4 MG VIAL PERIprocedural Use ONLY ONE (16:11)
--- NOTE | 2017-06-01 16:20 | MR ---
cc: Ciarra Lafleur MD DATE: 06/01/2017 PROCEDURE: Fiberoptic bronchoscopy flexible. REASON FOR BRONCHOSCOPY: 1. Hemoptysis. 2. History of lung cancer, question recurrence. 3. Pneumonia. 4. Question opportunistic infection. ANESTHESIA: Fiberoptic bronchoscopy performed via LMA. FINDINGS: Vocal cords intact. Trachea mildly hyperemic. Romana is sharp. Left main bronchus, left upper and lower lobe with no obstruction, no mass lesion. Right main bronchus, right upper lobe patent. Bronchus intermediate has a growth right above the orifice of the right middle lobe, a biopsy of which was taken x 2, placed in formalin. Cytologic brushings and brush biopsy as well was obtained. Microbiology brush was used within the right upper lobe for microbiologic studies. Procedure well tolerated. The patient was transferred to Recovery in stable condition. IMPRESSION: 1. Moderate tracheobronchitis. 2. Excess mucoid secretion and plugging. 3. Growth bronchus intermedius above right middle lobe, as above. 4. Samples obtained as above. 5. Procedure well tolerated. 6. The patient transferred to Recovery in stable condition. Ciarra Lafleur MD WWW/JOELLE , 03:41 PM , 04:20 PM
[2017-06-01] MEDS ORDERED: hydrALAZINE HCL 20 MG/ML VIAL ONE (17:10)
[2017-06-01] MEDS: hydrALAZINE HCL 20 MG/ML VIAL IV PUSH PRN (17:12)
[2017-06-01] MEDS: ONDANSETRON HCL 4 MG/2 ML VIAL IV PUSH PRN (20:10)
[2017-06-01] MEDS: MORPHINE SULFATE 2 MG/ML SYRINGE IV PUSH PRN (20:25)
[2017-06-01] MEDS: ATORVASTATIN 10 MG TAB PO SCH (21:09)
[2017-06-01] MEDS: FLUoxetine HCL 20 MG CAP PO SCH (21:09)
[2017-06-01] MEDS: DOCUSATE SODIUM 50 MG/SENNA 8.6 MG TAB PO SCH (21:09)
[2017-06-01 22:06] LABS: BICARBONATE 31.2 MEQ/L (21.0-32.0); CALCIUM 8.3 MG/DL (8.5-10.1); CREATININE 1.99 MG/DL (0.50-1.00)
[2017-06-01] MEDS: METOCLOPRAMIDE HCL 10 MG/2 ML VIAL IV PUSH PRN (23:01)
[2017-06-02] VITALS (22 sets, daily range): BP systolic 146–211; BP diastolic 51–88; PULSE 50–89; RESP 16–20; TEMP 97.5–98.8; O2SAT 96–100
[2017-06-02] MEDS: HEPARIN SODIUM - SQ 10,000 UNITS/ML VIAL SQ SCH ×2 (01:06→15:50)
[2017-06-02] MEDS: ONDANSETRON HCL 4 MG/2 ML VIAL IVP PRN (04:12)
[2017-06-02] MEDS: SODIUM CHLORIDE 0.9% FLUSH 10 ML FLUSH IV FLUSH PRN (04:12)
[2017-06-02] MEDS: LEVOTHYROXINE SODIUM 100 MCG TAB PO SCH (05:57)
[2017-06-02] MEDS: cloNIDine HCL 0.2 MG TAB PO SCH ×3 (05:58→21:41)
[2017-06-02] MEDS: CEFEPIME INJ 1,000 MG in SODIUM CHLORIDE 0.9% INJ 100 ML IV SCH (09:42)
[2017-06-02] MEDS: MORPHINE SULFATE 2 MG/ML SYRINGE IV PUSH PRN (09:42)
[2017-06-02] MEDS: LOSARTAN 50 MG TAB PO SCH (09:45)
[2017-06-02] MEDS: VITAMIN B CMPLX/VITC/FOLIC AC CAP PO SCH (09:45)
[2017-06-02] MEDS: NIFEdipine 90 MG SUSTAINED RELEASE TAB PO SCH (09:45)
[2017-06-02] MEDS: METOPROLOL SUCCINATE 25 MG EXTENDED RELEASE TAB PO SCH (09:45)
[2017-06-02] MEDS: NYSTATIN SUSP 500,000 U/5 ML CUP SWISH-SWAL SCH ×4 (09:45→21:42)
[2017-06-02] MEDS: SODIUM CHLORIDE 0.9% FLUSH 10 ML FLUSH IV FLUSH SCH ×2 (09:46→21:42)
[2017-06-02] MEDS: guaiFENesin E.R. 600 MG TAB PO SCH ×2 (09:46→21:41)
[2017-06-02] MEDS: CALCIUM ACETATE 667 MG CAP PO SCH ×3 (09:46→19:11)
[2017-06-02] MEDS: predniSONE 10 MG TAB PO SCH ×2 (09:46→21:41)
[2017-06-02] MEDS: PANTOPRAZOLE SOD 40 MG DELAYED RELEASE TAB PO SCH (09:46)
[2017-06-02] MEDS: ASPIRIN EC 81 MG TABEC PO SCH (09:46)
[2017-06-02] MEDS: FENOFIBRATE 48 MG TAB PO SCH (11:00)
--- NOTE | 2017-06-02 11:01 | HHI.NPPN ---
Subjective General Problems: Anemia Renal Failure: Chronic, End Stage Renal Disease Interval History Dialyzed yesterday without incident. Successful bronchoscopy yesterday. No new issues. (Milana Sandoval) Review of Systems General Constitutional: Fatigue (Milana Sandoval) Eyes Eyes Remarks worsening visual impairment (Milana Sandoval) Respiratory Lungs: SOB, Cough, Sputum (Milana Sandoval) Gastrointestinal Gastrointestinal: Abdominal Pain, Constipation (Milana Sandoval) Objective Data Data Vital Signs Date Time Temp Pulse Resp B/P (MAP) Pulse Ox O2 Delivery O2 Flow Rate FiO2 06/02/17 08:26 98.2 58 20 169/65 (99) 99 169/65 (99) 06/02/17 07:43 100 Nasal Cannula 2.00 06/02/17 06:05 58 06/02/17 05:04 56 06/02/17 04:15 98.5 58 18 157/51 (86) 97 06/02/17 04:02 62 06/02/17 03:02 58 06/02/17 02:02 59 06/02/17 01:00 57 06/02/17 00:51 97.9 63 16 160/52 (88) 97 06/02/17 00:05 59 06/01/17 23:03 66 06/01/17 22:08 65 06/01/17 21:07 64 06/01/17 20:35 96 Nasal Cannula 2.00 06/01/17 20:13 65 06/01/17 20:00 98.3 69 18 159/52 (87) 97 06/01/17 17:30 62 16 159/61 (93) 99 Nasal Cannula 2 06/01/17 17:25 62 16 161/69 (99) 99 Nasal Cannula 2 06/01/17 17:15 64 16 171/59 (96) 99 Nasal Cannula 3 06/01/17 17:05 190/70 (110) 06/01/17 17:00 64 16 219/100 (139) 99 Nasal Cannula 3 06/01/17 16:45 62 16 186/79 (114) 99 Nasal Cannula 3 06/01/17 16:30 62 16 195/80 (118) 98 Nasal Cannula 3 06/01/17 16:15 62 16 203/78 (119) 98 Nasal Cannula 3 06/01/17 16:00 60 16 201/79 (119) 97 Nasal Cannula 3 06/01/17 15:55 98.9 58 16 215/81 (125) 99 Nasal Cannula 3 06/01/17 14:30 98.4 60 18 191/84 (119) 94 06/01/17 13:38 98 Nasal Cannula 2.00 06/01/17 13:15 200/60 (106) (Milana Sandoval) -: 05/31/17 1703 06/01/17 2110 Microbiology 06/01/17 Fungal Smear - Final, Resulted NO FUNGAL ELEMENTS SEEN. 06/01/17 Fungal Culture, Resulted Pending 06/01/17 Fungal Smear, Received Pending 06/01/17 Fungal Culture, Received Pending 06/01/17 Acid Fast Stain, Received Pending 06/01/17 Mycobacterial Culture, Received Pending 06/01/17 Acid Fast Stain, Received Pending 06/01/17 Mycobacterial Culture, Received Pending 06/01/17 Bronchial Aspirate Culture - Preliminary, Resulted NO GROWTH IN 24 HOURS. 06/01/17 Gram Stain - Final, Resulted 06/01/17 Bronchial Culture, Resulted Pending (Milana Sandoval) Physical Exam General Appearance: Well Developed, No Acute Distress, Comfortable, Malnourished (Milana Sandoval) Throat Throat Exam: Oral Mucosa [place] & Moist (Milana Sandoval) Pulmonary Resp Exam: Breath Sounds Equal, Crackles, Rhonchi, Sputum, Decreased Bases (Milana Sandoval) Cardiology CV Exam: Normal Sinus Rhythm, Good Perfusion (Milana Sandoval) Gastrointestinal/Abdomen GI Exam: Soft, Non-Tender, Distended (Milana Sandoval) Musculoskeletal MS Exam: Joints Intact, Normal Tone, Good Strength (Milana Sandoval) Integumentary Skin Exam: Clear, Warm, Dry, Intact (Milana Sandoval) Extremeties Extremities Exam: No Edema, Pedal Pulses Palpable (Milana Sandoval) Neurologic Neuro Exam: Alert, Awake, Oriented, Speech Clear, Moving All Extremities (Milana Sandoval) Psychiatric Psych Exam: Appropriate Responses (Milana Sandoval) Assessment/Plan Discussed Condition With: Patient Assessment Summary: Anemia of CKD, Hypertension, End Stage Renal Disease Problem List: (1) End stage renal disease on dialysis ICD Codes: N18.6 - End stage renal disease; Z99.2 - Dependence on renal dialysis Status: Chronic Plan: Successful dialysis yesterday Continue HD support TTS. She has outpatient arrangements for after discharge. AVF is patent, protect left upper extremity Avoid IVF administration High protein, low phosphorus diet ordered Obtain intermittent renal profile. On calcium acetate for metabolic bone disorder (2) Chest pain ICD Codes: R07.9 - Chest pain, unspecified Status: Acute Plan: Mild elevation of troponin in the setting of renal failure No reports of chest pain currently (3) Pneumonia ICD Codes: J18.9 - Pneumonia, unspecified organism Plan: On cefepime Serial imaging reviewed. Continue Oxygen, nebulizers, IS, pulmonary toilet Bronchoscopy yesterday, biopsy taken Oncology is also following given history of lung cancer. (4) Anemia ICD Codes: D64.9 - Anemia, unspecified Status: Acute Plan: Epogen with dialysis Plan Cleared for discharge from renal perspective. (Milana Sandoval) Plan patient was seen and examined. Agree with above assessment and plan. (Gt Trejo MD) Problem Qualifiers (1) Chest pain: Qualified Codes: R07.9 - Chest pain, unspecified Milana Sandoval Jun 02, 2017 11:01 Gt Trejo MD Jun 02, 2017 21:18
[2017-06-02] MEDS: MULTIVITAMINS/MINERALS THERAPEUTIC TAB PO SCH (12:22)
--- NOTE | 2017-06-02 12:33 | PD.ONC.PN ---
Subjective Subjective Remarks Afebrile Patient reports she is not quite ready to go home on account of her breathing Reports she still gets quite short of breath with activity He has a sore throat from the procedure yesterday No other acute complaints Objective Data Date Time Temp Pulse Resp B/P (MAP) Pulse Ox O2 Delivery O2 Flow Rate FiO2 06/02/17 12:25 57 18 175/60 (98) 97 06/02/17 11:21 59 06/02/17 09:47 18 06/02/17 08:26 98.2 58 20 169/65 (99) 99 169/65 (99) 06/02/17 08:00 59 06/02/17 07:43 100 Nasal Cannula 2.00 06/02/17 06:05 58 06/02/17 05:04 56 06/02/17 04:15 98.5 58 18 157/51 (86) 97 06/02/17 04:02 62 06/02/17 03:02 58 06/02/17 02:02 59 06/02/17 01:00 57 06/02/17 00:51 97.9 63 16 160/52 (88) 97 06/02/17 00:05 59 06/01/17 23:03 66 06/01/17 22:08 65 06/01/17 21:07 64 06/01/17 20:35 96 Nasal Cannula 2.00 06/01/17 20:13 65 06/01/17 20:00 98.3 69 18 159/52 (87) 97 06/01/17 17:30 62 16 159/61 (93) 99 Nasal Cannula 2 06/01/17 17:25 62 16 161/69 (99) 99 Nasal Cannula 2 06/01/17 17:15 64 16 171/59 (96) 99 Nasal Cannula 3 06/01/17 17:05 190/70 (110) 06/01/17 17:00 64 16 219/100 (139) 99 Nasal Cannula 3 06/01/17 16:45 62 16 186/79 (114) 99 Nasal Cannula 3 06/01/17 16:30 62 16 195/80 (118) 98 Nasal Cannula 3 06/01/17 16:15 62 16 203/78 (119) 98 Nasal Cannula 3 06/01/17 16:00 60 16 201/79 (119) 97 Nasal Cannula 3 06/01/17 15:55 98.9 58 16 215/81 (125) 99 Nasal Cannula 3 06/01/17 14:30 98.4 60 18 191/84 (119) 94 06/01/17 13:38 98 Nasal Cannula 2.00 06/01/17 13:15 200/60 (106) 06/02/17 06/02/17 06/02/17 07:00 15:00 23:00 Intake Total 400 ml Output Total 300 ml Balance 100 ml Result Diagram: 05/31/17 1703 06/01/17 2110 Laboratory Results Laboratory Tests Test 06/01/17 21:10 Blood Urea Nitrogen 25 MG/DL Creatinine 1.99 MG/DL Random Glucose 177 MG/DL Calcium Level 8.3 MG/DL Sodium Level 138 MEQ/L Potassium Level 3.4 MEQ/L Chloride Level 99 MEQ/L Carbon Dioxide Level 31.2 MEQ/L Anion Gap 8 MEQ/L Estimat Glomerular Filtration Rate 24 ML/MIN Culture Results Microbiology Date/Time Source Procedure Growth Status 06/01/17 15:37 Bronchial Washings Other Fungal Smear - Final NO FUNGAL ELEMENTS SEEN. Resulted 06/01/17 15:37 Bronchial Washings Other Fungal Culture Pending Resulted 06/01/17 15:37 Bronchial Brushings Right Upper Lobe Fungal Smear Pending Received 06/01/17 15:37 Bronchial Brushings Right Upper Lobe Fungal Culture Pending Received 06/01/17 15:37 Bronchial Washings Other Acid Fast Stain Pending Received 06/01/17 15:37 Bronchial Washings Other Mycobacterial Culture Pending Received 06/01/17 15:37 Bronchial Brushings Right Upper Lobe Acid Fast Stain Pending Received 06/01/17 15:37 Bronchial Brushings Right Upper Lobe Mycobacterial Culture Pending Received 06/01/17 15:37 Bronchial Brushings Right Upper Lobe Bronchial Aspirate Culture - Preliminary NO GROWTH IN 24 HOURS. Resulted 06/01/17 15:37 Bronchial Washings Other Gram Stain - Final Resulted 06/01/17 15:37 Bronchial Washings Other Bronchial Culture Pending Resulted Administered Medications Medications (Trade) Dose Ordered Sig/Raheel Route PRN Reason Start Time Stop Time Status Last Admin Dose Admin Aspirin (Ecotrin Ec) 81 mg DAILY PO 05/26/17 09:00 06/02/17 09:46 Atorvastatin Calcium (Lipitor) 10 mg HS PO 05/25/17 21:00 06/01/17 21:09 Fluoxetine HCl (PROzac) 20 mg HS PO 05/25/17 21:00 06/01/17 21:09 Levothyroxine Sodium (Synthroid) 100 mcg DAILY@0600 PO 05/26/17 06:00 06/02/17 05:57 Losartan Potassium (Cozaar) 100 mg DAILY PO 05/26/17 09:00 06/02/17 09:45 Metoprolol Succinate (Toprol Xl) 25 mg DAILY PO 05/26/17 09:00 06/02/17 09:45 Nifedipine (Procardia Xl) 90 mg DAILY PO 05/26/17 09:00 06/02/17 09:45 Senna/Docusate Sodium (Irma-Colace) 4 tab HS PO 05/25/17 21:00 06/01/17 21:09 Fenofibrate (Tricor) 48 mg AC LUNCH PO 05/26/17 11:00 05/31/17 11:22 Multivitamins/ Minerals Therapeutic (Theragran M Tab) 1 tab AC LUNCH PO 05/26/17 11:00 06/02/17 12:22 Pantoprazole Sodium (Protonix) 40 mg DAILY PO 05/26/17 09:00 06/02/17 09:46 Clonidine (Catapres) 0.1 mg Q4H PRN PO SBP>160, DBP>90 05/25/17 12:45 06/01/17 10:01 Sodium Chloride (NS Flush) 2 ml UNSCH PRN IV FLUSH FLUSH AFTER USING IV ACCESS 05/25/17 12:45 06/02/17 04:12 Sodium Chloride (NS Flush) 2 ml BID IV FLUSH 05/25/17 21:00 06/02/17 09:46 Ondansetron HCl (Zofran Inj) 4 mg Q6H PRN IVP NAUSEA OR VOMITING 05/25/17 12:45 06/02/17 04:12 Metoclopramide HCl (Reglan Inj) 5 mg Q6H PRN IV PUSH NAUSEA OR VOMITING 05/25/17 12:45 06/01/17 23:01 Heparin Sodium (Porcine) (Heparin Inj) 5,000 units Q12H SQ 05/25/17 14:00 06/02/17 01:06 Acetaminophen (Tylenol) 650 mg Q6H PRN PO PAIN SCALE 1 TO 2 05/25/17 12:45 05/29/17 23:10 Oxycodone/ Acetaminophen (Percocet 5-325 Mg) 1 tab Q6H PRN PO PAIN SCALE 3 TO 5 05/25/17 12:45 05/27/17 20:46 Morphine Sulfate (Morphine Inj) 2 mg Q3H PRN IV PUSH Pain 3-5; if unable to take PO 05/25/17 12:45 05/31/17 21:03 Morphine Sulfate (Morphine Inj) 4 mg Q3H PRN IV PUSH Pain 6-10;if unable to take PO 05/25/17 12:45 06/02/17 09:42 Sennosides (Senokot) 17.2 mg Q12H PRN PO Moderate constipation 05/25/17 12:45 05/30/17 08:11 Guaifenesin (Mucinex Er) 600 mg BID PO 05/25/17 12:45 06/02/17 09:46 Sodium Chloride (NS Flush) 5 ml UNSCH PRN IV FLUSH WITH DIALYSIS 05/25/17 15:30 06/01/17 20:10 Ondansetron HCl (Zofran Inj) 4 mg UNSCH PRN IV PUSH WITH DIALYSIS 05/25/17 15:30 06/01/17 20:10 Clonidine (Catapres) 0.1 mg UNSCH PRN PO for BP > 180/100 X 2 readings 05/25/17 15:30 06/01/17 10:30 Gelatin (Gelfoam 12 Mm/7 Mm Top) 1 foam UNSCH PRN TOP SEE LABEL COMMENTS 05/25/17 15:30 06/01/17 11:49 Cefepime HCl 1000 mg/Sodium Chloride 100 ml @ 200 mls/hr Q24H IV 05/26/17 10:00 06/02/17 09:42 Epoetin Rohan (Epogen Inj) 10,000 units UNSCH PRN IV PUSH WITH DIALYSIS 05/27/17 09:15 06/01/17 11:35 Calcium Acetate (Phoslo) 667 mg TID PO 05/27/17 13:00 06/02/17 12:20 Vitamin B Complex/ Vit C/Folic Acid (Nephrocaps) 1 cap DAILY PO 05/27/17 10:15 06/02/17 09:45 Clonidine (Catapres) 0.3 mg Q8HR PO 05/29/17 14:00 06/02/17 05:58 Prednisone (Deltasone) 10 mg BID PO 05/30/17 21:00 06/02/17 09:46 Nystatin (Mycostatin Liq) 5 ml QID SWISH-SWAL 05/31/17 09:00 06/02/17 12:22 Hydralazine HCl (Apresoline Inj) 20 mg Q4H PRN IV PUSH SBP > 175 06/01/17 17:15 06/01/17 17:12 Objective Remarks GENERAL: Elderly female asleep on approach. Awakens easily to gentle shaking SKIN: Warm and dry. HEAD: Normocephalic. EYES: No injection or drainage. NECK: Supple, trachea midline. CARDIOVASCULAR: Regular rate and rhythm without murmurs. RESPIRATORY: Clear anteriorly. Breathing unlabored at rest. GASTROINTESTINAL: Abdomen soft, non-tender, nondistended. EXTREMITIES: No cyanosis, or edema. MUSCULOSKELETAL: Adequate muscle tone. NEUROLOGICAL: No obvious focal deficit. Awake, alert, and oriented x3. Assessment/Plan Problem List: (1) Lung cancer ICD Codes: C34.90 - Malignant neoplasm of unspecified part of unspecified bronchus or lung Plan: History: ++multiple masses in bilateral lungs. Biopsy showed adenocarcinoma. She received stereotactic radiation to 2 lesions in the left lung and 1 on the right. Her PET scan 09/2016 showed post-radiation changes in bilateral lungs. A CT scan in March showed a diffuse consolidation in the right upper lobe, but they appeared to be more consolidated. repeat PET scan again 04/28, which showed increased hypermetabolic uptake in the left hilar area suspicious for recurrent disease + hypermetabolic activity in right upper lobe with corresponding consolidation, but appeared to be stable and likely radiation changes. (2) Anemia due to chronic kidney disease ICD Codes: N18.9 - Chronic kidney disease, unspecified; D63.1 - Anemia in chronic kidney disease Plan: -- receiving Epogen with dialysis. Hgb stable. (3) Pneumonia ICD Codes: J18.9 - Pneumonia, unspecified organism Plan: Symptoms improving. Await possible bronchoscopy. Assessment 81y/o female with NSCLC admitted with hypoxia, hemoptysis. history of end-stage renal disease. Hypertension. Hyperlipidemia. Congestive heart failure. Hypothyroidism. Osteoarthritis. Chronic obstructive pulmonary disease. Gastroesophageal reflux disease. Diverticulitis. Plan 1. Cytology pending from bronchoscopy yesterday 2. Once discharged patient was instructed to follow-up with radiation oncology. 3. Follow-up in clinic from a medical oncology standpoint 4. Patient is clear for discharge once cleared by pulmonology Attending Statement The exam, history, and the medical decision-making described in the above note were completed with the assistance of the mid-level provider. I reviewed and agree with the findings presented. I attest that I had a [id number] encounter with the patient on the same day, and personally performed and documented my assessment and findings in the medical record. No CP/cough. SOB improved. Bronchoscopy showed tracheobronchitis with mucus plugs. There was a growth that was biopsied. Path pending. F/u oncology clinic after d/c. Radha Adams Jun 02, 2017 12:33 Edmundo Gonsalez MD Jun 02, 2017 13:00
--- NOTE | 2017-06-02 15:33 | HHI.PR ---
Subjective Remarks ALERT, UP AT SIDE OF BED tolerated ronchoscopy well C./O DYSPHAGIA Objective Vital Signs Date Time Temp Pulse Resp B/P (MAP) Pulse Ox O2 Delivery O2 Flow Rate FiO2 06/02/17 13:00 60 06/02/17 12:25 57 18 175/60 (98) 97 06/02/17 11:21 59 06/02/17 09:47 18 06/02/17 08:26 98.2 58 20 169/65 (99) 99 169/65 (99) 06/02/17 08:00 59 06/02/17 07:43 100 Nasal Cannula 2.00 06/02/17 06:05 58 06/02/17 05:04 56 06/02/17 04:15 98.5 58 18 157/51 (86) 97 06/02/17 04:02 62 06/02/17 03:02 58 06/02/17 02:02 59 06/02/17 01:00 57 06/02/17 00:51 97.9 63 16 160/52 (88) 97 06/02/17 00:05 59 06/01/17 23:03 66 06/01/17 22:08 65 06/01/17 21:07 64 06/01/17 20:35 96 Nasal Cannula 2.00 06/01/17 20:13 65 06/01/17 20:00 98.3 69 18 159/52 (87) 97 06/01/17 17:30 62 16 159/61 (93) 99 Nasal Cannula 2 06/01/17 17:25 62 16 161/69 (99) 99 Nasal Cannula 2 06/01/17 17:15 64 16 171/59 (96) 99 Nasal Cannula 3 06/01/17 17:05 190/70 (110) 06/01/17 17:00 64 16 219/100 (139) 99 Nasal Cannula 3 06/01/17 16:45 62 16 186/79 (114) 99 Nasal Cannula 3 06/01/17 16:30 62 16 195/80 (118) 98 Nasal Cannula 3 06/01/17 16:15 62 16 203/78 (119) 98 Nasal Cannula 3 06/01/17 16:00 60 16 201/79 (119) 97 Nasal Cannula 3 06/01/17 15:55 98.9 58 16 215/81 (125) 99 Nasal Cannula 3 I/O 06/01/17 06/01/17 06/01/17 06/02/17 06/02/17 06/02/17 07:00 15:00 23:00 07:00 15:00 23:00 Intake Total 20 ml 400 ml Output Total 200 ml 1200 ml 300 ml Balance -200 ml -1200 ml 20 ml 100 ml Intake Oral 400 ml IV Total 20 ml Output Urine Total 200 ml 300 ml Hemodialysis 1200 ml # Bowel Movements 0 0 Result Diagram: 05/31/17 1703 06/01/172109 Objective Remarks GENERAL: SKIN: Warm and dry. HEAD: Atraumatic. Normocephalic. EYES: Pupils equal and round. No scleral icterus. No injection or drainage. ENT: No nasal bleeding or discharge. Mucous membranes pink and moist. NECK: Trachea midline. No JVD. CARDIOVASCULAR: Regular rate and rhythm. RESPIRATORY: No accessory muscle use. SCATTERED RHONCHI to auscultation. Breath sounds equal bilaterally. GASTROINTESTINAL: Abdomen soft, non-tender, nondistended. Hepatic and splenic margins not palpable. MUSCULOSKELETAL: Extremities without clubbing, cyanosis, or edema. No obvious deformities. NEUROLOGICAL: Awake and alert. No obvious cranial nerve deficits. Motor grossly within normal limits. Five out of 5 muscle strength in the arms and legs. Normal speech. PSYCHIATRIC: Appropriate mood and affect; insight and judgment normal. Assessment and Plan Assessment and Plan OMPRESSION BILATERAL LUNG INFILTRATES HEMOPTYSIS LUNG CA ESRD ON MHD DYSPHAGIA PLAN ANTIBX ANTIBX SWALLOW EVALUATION ANTIBX CHECK BRONCH RESULTS NOT READY FOR D/C YET Ciarra Lafleur MD Jun 02, 2017 15:33
--- NOTE | 2017-06-02 15:41 | HHI.PR ---
Subjective Remarks Patient states that she tolerated the bronchoscopy well. She is happy to be eating food again and has a full male in front of her. She does not feel ready to go home yet, she has been to the hospital twice already in the last few months. Objective Vitals Vital Signs Date Time Temp Pulse Resp B/P (MAP) Pulse Ox O2 Delivery O2 Flow Rate FiO2 06/02/17 13:00 60 06/02/17 12:25 57 18 175/60 (98) 97 06/02/17 11:21 59 06/02/17 09:47 18 06/02/17 08:26 98.2 58 20 169/65 (99) 99 169/65 (99) 06/02/17 08:00 59 06/02/17 07:43 100 Nasal Cannula 2.00 06/02/17 06:05 58 06/02/17 05:04 56 06/02/17 04:15 98.5 58 18 157/51 (86) 97 06/02/17 04:02 62 06/02/17 03:02 58 06/02/17 02:02 59 06/02/17 01:00 57 06/02/17 00:51 97.9 63 16 160/52 (88) 97 06/02/17 00:05 59 06/01/17 23:03 66 06/01/17 22:08 65 06/01/17 21:07 64 06/01/17 20:35 96 Nasal Cannula 2.00 06/01/17 20:13 65 06/01/17 20:00 98.3 69 18 159/52 (87) 97 06/01/17 17:30 62 16 159/61 (93) 99 Nasal Cannula 2 06/01/17 17:25 62 16 161/69 (99) 99 Nasal Cannula 2 06/01/17 17:15 64 16 171/59 (96) 99 Nasal Cannula 3 06/01/17 17:05 190/70 (110) 06/01/17 17:00 64 16 219/100 (139) 99 Nasal Cannula 3 06/01/17 16:45 62 16 186/79 (114) 99 Nasal Cannula 3 06/01/17 16:30 62 16 195/80 (118) 98 Nasal Cannula 3 06/01/17 16:15 62 16 203/78 (119) 98 Nasal Cannula 3 06/01/17 16:00 60 16 201/79 (119) 97 Nasal Cannula 3 06/01/17 15:55 98.9 58 16 215/81 (125) 99 Nasal Cannula 3 I/O 06/01/17 06/01/17 06/01/17 06/02/17 06/02/17 06/02/17 07:00 15:00 23:00 07:00 15:00 23:00 Intake Total 20 ml 400 ml Output Total 200 ml 1200 ml 300 ml Balance -200 ml -1200 ml 20 ml 100 ml Intake Oral 400 ml IV Total 20 ml Output Urine Total 200 ml 300 ml Hemodialysis 1200 ml # Bowel Movements 0 0 Result Diagram: 05/31/17 1703 06/01/170 Objective Remarks GENERAL: Alert and oriented, poor eyesight, weak appearing SKIN: Warm and dry. HEAD: Normocephalic. EYES: No scleral icterus. No injection or drainage. NECK: Supple, trachea midline. No JVD or lymphadenopathy. CARDIOVASCULAR: Regular rate and rhythm 1/6 HARRISON, gallops, or rubs. RESPIRATORY: Breath sounds equal bilaterally. No accessory muscle use. GASTROINTESTINAL: Abdomen soft, non-tender, nondistended. EXTREMITIES: No cyanosis, or edema. NEUROLOGICAL: Awake, alert, and oriented x 3. Non-focal. Procedures HD A/P Problem List: (1) PNA (pneumonia) ICD Code: J18.9 - Pneumonia, unspecified organism Status: Acute (2) End stage renal disease on dialysis ICD Code: N18.6 - End stage renal disease; Z99.2 - Dependence on renal dialysis Status: Chronic (3) COPD exacerbation ICD Code: J44.1 - Chronic obstructive pulmonary disease with (acute) exacerbation Status: Acute (4) Accelerated hypertension ICD Code: I10 - Essential (primary) hypertension Status: Acute (5) Lung cancer ICD Code: C34.90 - Malignant neoplasm of unspecified part of unspecified bronchus or lung (6) Fluid overload ICD Code: E87.70 - Fluid overload, unspecified (7) Chest pain ICD Code: R07.9 - Chest pain, unspecified Status: Acute Assessment and Plan Fluid overload with hypoxemia She denies missing dialysis treatment, this raises suspicion for cardiac causes Manage hypertension with clonidine 0.3 mg p.o. 3 times daily 10 year Procardia 90 mg XL, Cozaar 100 mg, Metoprolol daily Mild elevation of troponin on admission Supplemental oxygen Pneumonia/COPD/hemoptysis Continue with supportive care including oxygen, nebulizers, steroids, Mucinex Continuing antibiotic coverage with cefepime Encourage incentive spirometry Tolerated bronchoscopy well, results pending Appreciate pulmonology consult ESRD on HD Receiving dialysis 3 times per week, denies missing any treatment Appreciate nephrology following Abdominal pain Likely due to constipation History of sigmoid surgery many years ago Continue with senna and other softeners GERD, hyperlipidemia, hypothyroidism continue on home medications DVT prophylaxis heparin Discharge planning Patient will likely go home with home health pulmonology says ok (she is not ready yet) Problem Qualifiers (1) Chest pain: Qualified Codes: R07.9 - Chest pain, unspecified Nish Vazquez MD Jun 02, 2017 15:41
[2017-06-02] MEDS: hydrALAZINE HCL 20 MG/ML VIAL IV PUSH PRN ×2 (21:41→23:03)
[2017-06-02] MEDS: ATORVASTATIN 10 MG TAB PO SCH (21:41)
[2017-06-02] MEDS: FLUoxetine HCL 20 MG CAP PO SCH (21:41)
[2017-06-02] MEDS: DOCUSATE SODIUM 50 MG/SENNA 8.6 MG TAB PO SCH (21:41)
[2017-06-03] VITALS (9 sets, daily range): BP systolic 143–180; BP diastolic 50–69; PULSE 48–66; RESP 16–18; TEMP 97.7–99; O2SAT 96–99
[2017-06-03] MEDS: ONDANSETRON HCL 4 MG/2 ML VIAL IVP PRN ×2 (02:18→20:39)
[2017-06-03] MEDS: HEPARIN SODIUM - SQ 10,000 UNITS/ML VIAL SQ SCH ×2 (02:21→13:24)
[2017-06-03] MEDS: cloNIDine HCL 0.2 MG TAB PO SCH ×3 (05:30→20:30)
[2017-06-03] MEDS: LEVOTHYROXINE SODIUM 100 MCG TAB PO SCH (05:30)
--- NOTE | 2017-06-03 07:38 | PD.ONC.PN ---
Subjective Subjective Remarks SOB/cough improved. No hemoptysis. +dysphagia. Objective Data Date Time Temp Pulse Resp B/P (MAP) Pulse Ox O2 Delivery O2 Flow Rate FiO2 06/03/17 05:28 98.2 52 17 143/56 (85) 96 06/03/17 04:00 48 06/03/17 00:00 52 06/02/17 22:52 97.5 53 16 146/66 (92) 98 06/02/17 22:30 50 17 187/85 (119) 98 06/02/17 21:48 190/80 (116) 06/02/17 21:26 98.3 58 18 211/88 (129) 98 06/02/17 20:00 58 06/02/17 19:30 96 Nasal Cannula 2.00 06/02/17 15:39 98.8 89 18 171/60 (97) 96 06/02/17 13:00 60 06/02/17 12:25 57 18 175/60 (98) 97 06/02/17 11:21 59 06/02/17 09:47 18 06/02/17 08:26 98.2 58 20 169/65 (99) 99 169/65 (99) 06/02/17 08:00 59 06/02/17 07:43 100 Nasal Cannula 2.00 06/03/17 06/03/17 06/03/17 07:00 15:00 23:00 Output Total 200 ml Balance -200 ml Result Diagram: 05/31/17 1703 06/01/17 2110 Culture Results Microbiology Date/Time Source Procedure Growth Status 06/01/17 15:37 Bronchial Washings Other Fungal Smear - Final NO FUNGAL ELEMENTS SEEN. Resulted 06/01/17 15:37 Bronchial Washings Other Fungal Culture Pending Resulted 06/01/17 15:37 Bronchial Brushings Right Upper Lobe Fungal Smear Pending Received 06/01/17 15:37 Bronchial Brushings Right Upper Lobe Fungal Culture Pending Received 06/01/17 15:37 Bronchial Washings Other Acid Fast Stain Pending Received 06/01/17 15:37 Bronchial Washings Other Mycobacterial Culture Pending Received 06/01/17 15:37 Bronchial Brushings Right Upper Lobe Acid Fast Stain Pending Received 06/01/17 15:37 Bronchial Brushings Right Upper Lobe Mycobacterial Culture Pending Received 06/01/17 15:37 Bronchial Brushings Right Upper Lobe Bronchial Aspirate Culture - Preliminary NO GROWTH IN 24 HOURS. Resulted 06/01/17 15:37 Bronchial Washings Other Gram Stain - Final Resulted 06/01/17 15:37 Bronchial Washings Other Bronchial Culture - Preliminary IMMATURE GROWTH - REINCUBATE Resulted Administered Medications Medications (Trade) Dose Ordered Sig/Raheel Route PRN Reason Start Time Stop Time Status Last Admin Dose Admin Aspirin (Ecotrin Ec) 81 mg DAILY PO 05/26/17 09:00 06/02/17 09:46 Atorvastatin Calcium (Lipitor) 10 mg HS PO 05/25/17 21:00 06/02/17 21:41 Fluoxetine HCl (PROzac) 20 mg HS PO 05/25/17 21:00 06/02/17 21:41 Levothyroxine Sodium (Synthroid) 100 mcg DAILY@0600 PO 05/26/17 06:00 06/03/17 05:30 Losartan Potassium (Cozaar) 100 mg DAILY PO 05/26/17 09:00 06/02/17 09:45 Metoprolol Succinate (Toprol Xl) 25 mg DAILY PO 05/26/17 09:00 06/02/17 09:45 Nifedipine (Procardia Xl) 90 mg DAILY PO 05/26/17 09:00 06/02/17 09:45 Senna/Docusate Sodium (Irma-Colace) 4 tab HS PO 05/25/17 21:00 06/02/17 21:41 Fenofibrate (Tricor) 48 mg AC LUNCH PO 05/26/17 11:00 05/31/17 11:22 Multivitamins/ Minerals Therapeutic (Theragran M Tab) 1 tab AC LUNCH PO 05/26/17 11:00 06/02/17 12:22 Pantoprazole Sodium (Protonix) 40 mg DAILY PO 05/26/17 09:00 06/02/17 09:46 Clonidine (Catapres) 0.1 mg Q4H PRN PO SBP>160, DBP>90 05/25/17 12:45 06/01/17 10:01 Sodium Chloride (NS Flush) 2 ml UNSCH PRN IV FLUSH FLUSH AFTER USING IV ACCESS 05/25/17 12:45 06/02/17 04:12 Sodium Chloride (NS Flush) 2 ml BID IV FLUSH 05/25/17 21:00 06/02/17 21:42 Ondansetron HCl (Zofran Inj) 4 mg Q6H PRN IVP NAUSEA OR VOMITING 05/25/17 12:45 06/03/17 02:18 Metoclopramide HCl (Reglan Inj) 5 mg Q6H PRN IV PUSH NAUSEA OR VOMITING 05/25/17 12:45 06/01/17 23:01 Heparin Sodium (Porcine) (Heparin Inj) 5,000 units Q12H SQ 05/25/17 14:00 06/03/17 02:21 Acetaminophen (Tylenol) 650 mg Q6H PRN PO PAIN SCALE 1 TO 2 05/25/17 12:45 05/29/17 23:10 Oxycodone/ Acetaminophen (Percocet 5-325 Mg) 1 tab Q6H PRN PO PAIN SCALE 3 TO 5 05/25/17 12:45 05/27/17 20:46 Morphine Sulfate (Morphine Inj) 2 mg Q3H PRN IV PUSH Pain 3-5; if unable to take PO 05/25/17 12:45 05/31/17 21:03 Morphine Sulfate (Morphine Inj) 4 mg Q3H PRN IV PUSH Pain 6-10;if unable to take PO 05/25/17 12:45 06/02/17 09:42 Sennosides (Senokot) 17.2 mg Q12H PRN PO Moderate constipation 05/25/17 12:45 05/30/17 08:11 Guaifenesin (Mucinex Er) 600 mg BID PO 05/25/17 12:45 06/02/17 21:41 Sodium Chloride (NS Flush) 5 ml UNSCH PRN IV FLUSH WITH DIALYSIS 05/25/17 15:30 06/01/17 20:10 Ondansetron HCl (Zofran Inj) 4 mg UNSCH PRN IV PUSH WITH DIALYSIS 05/25/17 15:30 06/01/17 20:10 Clonidine (Catapres) 0.1 mg UNSCH PRN PO for BP > 180/100 X 2 readings 05/25/17 15:30 06/01/17 10:30 Gelatin (Gelfoam 12 Mm/7 Mm Top) 1 foam UNSCH PRN TOP SEE LABEL COMMENTS 05/25/17 15:30 06/01/17 11:49 Cefepime HCl 1000 mg/Sodium Chloride 100 ml @ 200 mls/hr Q24H IV 05/26/17 10:00 06/02/17 09:42 Epoetin Rohan (Epogen Inj) 10,000 units UNSCH PRN IV PUSH WITH DIALYSIS 05/27/17 09:15 06/01/17 11:35 Calcium Acetate (Phoslo) 667 mg TID PO 05/27/17 13:00 06/02/17 19:11 Vitamin B Complex/ Vit C/Folic Acid (Nephrocaps) 1 cap DAILY PO 05/27/17 10:15 06/02/17 09:45 Clonidine (Catapres) 0.3 mg Q8HR PO 05/29/17 14:00 06/03/17 05:30 Prednisone (Deltasone) 10 mg BID PO 05/30/17 21:00 06/02/17 21:41 Nystatin (Mycostatin Liq) 5 ml QID SWISH-SWAL 05/31/17 09:00 06/02/17 21:42 Hydralazine HCl (Apresoline Inj) 20 mg Q4H PRN IV PUSH SBP > 175 06/01/17 17:15 06/02/17 23:03 Objective Remarks GENERAL: Well-nourished, well-developed patient. SKIN: Warm and dry. HEAD: Normocephalic. EYES: No scleral icterus. No injection or drainage. Legally blind NECK: Supple, trachea midline. No JVD or lymphadenopathy. LYMPHATIC: No adenopathy. CARDIOVASCULAR: Regular rate and rhythm without murmurs. RESPIRATORY: Breath sounds diffused rhonchi. No accessory muscle use. GASTROINTESTINAL: Abdomen soft, non-tender, nondistended. EXTREMITIES: No cyanosis, or edema. MUSCULOSKELETAL: Adequate muscle tone. NEUROLOGICAL: No obvious focal deficit. Awake, alert, and oriented x3. PSYCHIATRIC: Appropriate mood and affect; insight and judgment normal. Assessment/Plan Problem List: (1) Lung cancer ICD Codes: C34.90 - Malignant neoplasm of unspecified part of unspecified bronchus or lung Plan: --Bronchoscopy showed a growth in the bronchus, biopsy path pending. History: ++multiple masses in bilateral lungs. Biopsy showed adenocarcinoma. She received stereotactic radiation to 2 lesions in the left lung and 1 on the right. Her PET scan 09/2016 showed post-radiation changes in bilateral lungs. A CT scan in March showed a diffuse consolidation in the right upper lobe, but they appeared to be more consolidated. repeat PET scan again 04/28, which showed increased hypermetabolic uptake in the left hilar area suspicious for recurrent disease + hypermetabolic activity in right upper lobe with corresponding consolidation, but appeared to be stable and likely radiation changes. (2) Anemia due to chronic kidney disease ICD Codes: N18.9 - Chronic kidney disease, unspecified; D63.1 - Anemia in chronic kidney disease Plan: -- receiving Epogen with dialysis. Hgb stable. (3) Pneumonia ICD Codes: J18.9 - Pneumonia, unspecified organism Plan: Symptoms improving. Bronchoscopy showed tracheobronchitis and mucus plugs. Washing culture pending.. Assessment 81y/o female with NSCLC admitted with hypoxia, hemoptysis. history of end-stage renal disease. Hypertension. Hyperlipidemia. Congestive heart failure. Hypothyroidism. Osteoarthritis. Chronic obstructive pulmonary disease. Gastroesophageal reflux disease. Diverticulitis. Plan 1. Cytology and path pending from bronchoscopy 2. Once discharged patient was instructed to follow-up with radiation oncology. 3. Patient is clear for discharge once cleared by pulmonology and f/u oncology clinic. Edmundo Gonsalez MD Jun 03, 2017 07:38
--- NOTE | 2017-06-03 08:08 | HHI.NPPN ---
Subjective General Problems: Anemia Renal Failure: Chronic, End Stage Renal Disease Interval History Patient to have dialysis today. She is cleared for discharge from renal standpoint. Review of Systems General Constitutional: Fatigue Eyes Eyes Remarks worsening visual impairment Respiratory Lungs: SOB, Cough, Sputum Gastrointestinal Gastrointestinal: Abdominal Pain Objective Data Data Vital Signs Date Time Temp Pulse Resp B/P (MAP) Pulse Ox O2 Delivery O2 Flow Rate FiO2 06/03/17 05:28 98.2 52 17 143/56 (85) 96 06/03/17 04:00 48 06/03/17 00:00 52 06/02/17 22:52 97.5 53 16 146/66 (92) 98 06/02/17 22:30 50 17 187/85 (119) 98 06/02/17 21:48 190/80 (116) 06/02/17 21:26 98.3 58 18 211/88 (129) 98 06/02/17 20:00 58 06/02/17 19:30 96 Nasal Cannula 2.00 06/02/17 15:39 98.8 89 18 171/60 (97) 96 06/02/17 13:00 60 06/02/17 12:25 57 18 175/60 (98) 97 06/02/17 11:21 59 06/02/17 09:47 18 06/02/17 08:26 98.2 58 20 169/65 (99) 99 169/65 (99) -: 05/31/17 1703 06/01/17 2110 Physical Exam General Appearance: Well Developed, No Acute Distress, Comfortable, Malnourished Throat Throat Exam: Oral Mucosa [place] & Moist Pulmonary Resp Exam: Breath Sounds Equal, Crackles, Rhonchi, Sputum, Decreased Bases Cardiology CV Exam: Normal Sinus Rhythm, Good Perfusion Gastrointestinal/Abdomen GI Exam: Soft, Non-Tender, Distended Musculoskeletal MS Exam: Joints Intact, Normal Tone, Good Strength Integumentary Skin Exam: Clear, Warm, Dry, Intact Extremeties Extremities Exam: No Edema, Pedal Pulses Palpable Neurologic Neuro Exam: Alert, Awake, Oriented, Speech Clear, Moving All Extremities Psychiatric Psych Exam: Appropriate Responses Assessment/Plan Discussed Condition With: Patient Assessment Summary: Anemia of CKD, Hypertension, End Stage Renal Disease Problem List: (1) End stage renal disease on dialysis ICD Codes: N18.6 - End stage renal disease; Z99.2 - Dependence on renal dialysis Status: Chronic Plan: Continue HD support TTS. She has outpatient arrangements for after discharge. AVF is patent, protect left upper extremity Avoid IVF administration High protein, low phosphorus diet ordered Obtain intermittent renal profile. On calcium acetate for metabolic bone disorder (2) Chest pain ICD Codes: R07.9 - Chest pain, unspecified Status: Acute Plan: Mild elevation of troponin in the setting of renal failure No reports of chest pain currently (3) Pneumonia ICD Codes: J18.9 - Pneumonia, unspecified organism Plan: On cefepime Serial imaging reviewed. Continue Oxygen, nebulizers, IS, pulmonary toilet Bronchoscopy done on 05/31. A growth seen in the bronchus, biopsy taken. Oncology is also following given history of lung cancer. She needs to followup with radiation oncology. Her prognosis is guarded to poor. (4) Anemia ICD Codes: D64.9 - Anemia, unspecified Status: Acute Plan: Epogen with dialysis Problem Qualifiers (1) Chest pain: Qualified Codes: R07.9 - Chest pain, unspecified Gt Trejo MD Jun 03, 2017 08:08
[2017-06-03] MEDS: NYSTATIN SUSP 500,000 U/5 ML CUP SWISH-SWAL SCH ×4 (09:00→20:34)
[2017-06-03] MEDS: CALCIUM ACETATE 667 MG CAP PO SCH ×3 (09:00→18:00)
[2017-06-03] MEDS: VITAMIN B CMPLX/VITC/FOLIC AC CAP PO SCH (09:00)
[2017-06-03] MEDS: predniSONE 10 MG TAB PO SCH ×2 (09:00→21:00)
[2017-06-03] MEDS: PANTOPRAZOLE SOD 40 MG DELAYED RELEASE TAB PO SCH (09:00)
[2017-06-03] MEDS: guaiFENesin E.R. 600 MG TAB PO SCH ×2 (09:00→20:31)
[2017-06-03] MEDS: NIFEdipine 90 MG SUSTAINED RELEASE TAB PO SCH (09:00)
[2017-06-03] MEDS: METOPROLOL SUCCINATE 25 MG EXTENDED RELEASE TAB PO SCH (09:00)
[2017-06-03] MEDS: ASPIRIN EC 81 MG TABEC PO SCH (09:00)
[2017-06-03] MEDS: LOSARTAN 50 MG TAB PO SCH (09:00)
[2017-06-03] MEDS: CEFEPIME INJ 1,000 MG in SODIUM CHLORIDE 0.9% INJ 100 ML IV SCH (10:00)
[2017-06-03] MEDS: SODIUM CHLORIDE 0.9% FLUSH 10 ML FLUSH IV FLUSH SCH ×2 (10:50→20:34)
[2017-06-03] MEDS: FENOFIBRATE 48 MG TAB PO SCH (10:53)
[2017-06-03] MEDS: MULTIVITAMINS/MINERALS THERAPEUTIC TAB PO SCH (10:53)
[2017-06-03] MEDS: GELATIN 12 MM/7 MM FOAM TOP PRN (11:39)
[2017-06-03] MEDS: oxyCODONE/ACETAMINOPHEN 5 MG/325 MG TAB PO PRN (15:34)
[2017-06-03] MEDS ORDERED: PHENOL 1.4% SOLN 180 ML BTL OROPHARYNG PRN (15:45)
[2017-06-03] MEDS ORDERED: predniSONE 20 MG TAB PO ONE (16:00)
--- NOTE | 2017-06-03 16:20 | HHI.PR ---
Subjective Remarks ALERT, UP AT SIDE OF BED tolerated ronchoscopy well C./O DYSPHAGIA Objective Vital Signs Date Time Temp Pulse Resp B/P (MAP) Pulse Ox O2 Delivery O2 Flow Rate FiO2 06/03/17 11:55 99.0 66 16 148/69 (95) 99 06/03/17 07:45 97.7 54 16 152/56 (88) 96 06/03/17 07:45 51 06/03/17 05:28 98.2 52 17 143/56 (85) 96 06/03/17 04:00 48 06/03/17 00:00 52 06/02/17 22:52 97.5 53 16 146/66 (92) 98 06/02/17 22:30 50 17 187/85 (119) 98 06/02/17 21:48 190/80 (116) 06/02/17 21:26 98.3 58 18 211/88 (129) 98 06/02/17 20:00 58 06/02/17 19:30 96 Nasal Cannula 2.00 I/O 06/02/17 06/02/17 06/02/17 06/03/17 06/03/17 06/03/17 07:00 15:00 23:00 07:00 15:00 23:00 Intake Total 400 ml 1680 ml Output Total 300 ml 2460 ml 200 ml 3000 ml Balance 100 ml -780 ml -200 ml -3000 ml Intake Oral 400 ml 1680 ml Output Urine Total 300 ml 2460 ml 200 ml Hemodialysis 3000 ml # Bowel Movements 0 0 Result Diagram: 05/31/17 1703 06/01/172109 Objective Remarks GENERAL: SKIN: Warm and dry. HEAD: Atraumatic. Normocephalic. EYES: Pupils equal and round. No scleral icterus. No injection or drainage. ENT: No nasal bleeding or discharge. Mucous membranes pink and moist. NECK: Trachea midline. No JVD. CARDIOVASCULAR: Regular rate and rhythm. RESPIRATORY: No accessory muscle use. SCATTERED RHONCHI to auscultation. Breath sounds equal bilaterally. GASTROINTESTINAL: Abdomen soft, non-tender, nondistended. Hepatic and splenic margins not palpable. MUSCULOSKELETAL: Extremities without clubbing, cyanosis, or edema. No obvious deformities. NEUROLOGICAL: Awake and alert. No obvious cranial nerve deficits. Motor grossly within normal limits. Five out of 5 muscle strength in the arms and legs. Normal speech. PSYCHIATRIC: Appropriate mood and affect; insight and judgment normal. Assessment and Plan Assessment and Plan OMPRESSION BILATERAL LUNG INFILTRATES HEMOPTYSIS LUNG CA ESRD ON MHD DYSPHAGIA PLAN ANTIBX SWALLOW EVALUATION ANTIBX CHECK BRONCH RESULTS NOT READY FOR D/C YET Ciarra Lafleur MD Jun 03, 2017 16:20
--- NOTE | 2017-06-03 17:33 | HHI.PR ---
Subjective Remarks Patient complains of sore throat and some pain with swallowing since her bronchoscopy was performed. I explained this was likely an abrasion and offered her Chloraseptic spray. She is concerned that if she goes home to early she will just end up back here again. She also reports that her insurance co-pay only last the first 5 days of hospitalization and therefore her stay currently is free for her. Objective Vitals Vital Signs Date Time Temp Pulse Resp B/P (MAP) Pulse Ox O2 Delivery O2 Flow Rate FiO2 06/03/17 11:55 99.0 66 16 148/69 (95) 99 06/03/17 07:45 97.7 54 16 152/56 (88) 96 06/03/17 07:45 51 06/03/17 05:28 98.2 52 17 143/56 (85) 96 06/03/17 04:00 48 06/03/17 00:00 52 06/02/17 22:52 97.5 53 16 146/66 (92) 98 06/02/17 22:30 50 17 187/85 (119) 98 06/02/17 21:48 190/80 (116) 06/02/17 21:26 98.3 58 18 211/88 (129) 98 06/02/17 20:00 58 06/02/17 19:30 96 Nasal Cannula 2.00 I/O 06/02/17 06/02/17 06/02/17 06/03/17 06/03/17 06/03/17 07:00 15:00 23:00 07:00 15:00 23:00 Intake Total 400 ml 1680 ml Output Total 300 ml 2460 ml 200 ml 3000 ml Balance 100 ml -780 ml -200 ml -3000 ml Intake Oral 400 ml 1680 ml Output Urine Total 300 ml 2460 ml 200 ml Hemodialysis 3000 ml # Bowel Movements 0 0 Result Diagram: 05/31/17 1703 06/01/170 Objective Remarks GENERAL: Alert and oriented, poor eyesight, weak appearing SKIN: Warm and dry. HEAD: Normocephalic. EYES: No scleral icterus. No injection or drainage. NECK: Supple, trachea midline. No JVD or lymphadenopathy. CARDIOVASCULAR: Regular rate and rhythm 1/6 [place], gallops, or rubs. RESPIRATORY: Breath sounds equal bilaterally. No accessory muscle use. GASTROINTESTINAL: Abdomen soft, non-tender, nondistended. EXTREMITIES: No cyanosis, or edema. NEUROLOGICAL: Awake, alert, and oriented x 3. Non-focal. Procedures HD A/P Problem List: (1) PNA (pneumonia) ICD Code: J18.9 - Pneumonia, unspecified organism Status: Acute (2) End stage renal disease on dialysis ICD Code: N18.6 - End stage renal disease; Z99.2 - Dependence on renal dialysis Status: Chronic (3) COPD exacerbation ICD Code: J44.1 - Chronic obstructive pulmonary disease with (acute) exacerbation Status: Acute (4) Accelerated hypertension ICD Code: I10 - Essential (primary) hypertension Status: Acute (5) Lung cancer ICD Code: C34.90 - Malignant neoplasm of unspecified part of unspecified bronchus or lung (6) Fluid overload ICD Code: E87.70 - Fluid overload, unspecified (7) Chest pain ICD Code: R07.9 - Chest pain, unspecified Status: Acute Assessment and Plan Fluid overload with hypoxemia She denies missing dialysis treatment Manage hypertension with clonidine 0.3 mg p.o. 3 times daily 10 year Procardia 90 mg XL, Cozaar 100 mg, Metoprolol daily Mild elevation of troponin on admission Continue supplemental oxygen h/o Lung CA w/ growth on Bronchoscopy Suspicious for recurrence of lung cancer, cytology is pending Appreciate oncology consult Mild dysphagia Pain with swallowing following bronchoscopy Chloraseptic spray provided Single dose of prednisone 40 mg 1 Follow clinically Pneumonia/COPD/hemoptysis Continue with supportive care including oxygen, nebulizers, steroids, Mucinex Continuing antibiotic coverage with cefepime Encourage incentive spirometry Status post bronchoscopy Appreciate pulmonology consult ESRD on HD Receiving dialysis 3 times per week, denies missing any treatment Appreciate nephrology following Abdominal pain Likely due to constipation History of sigmoid surgery many years ago Continue with senna and other softeners GERD, hyperlipidemia, hypothyroidism continue on home medications DVT prophylaxis heparin Discharge planning Not ready for discharge yet according to pulmonology Problem Qualifiers (1) Chest pain: Qualified Codes: R07.9 - Chest pain, unspecified Nish Vazquez MD Jun 03, 2017 17:33
[2017-06-03] MEDS: FLUoxetine HCL 20 MG CAP PO SCH (20:31)
[2017-06-03] MEDS: ATORVASTATIN 10 MG TAB PO SCH (20:31)
[2017-06-03] MEDS: DOCUSATE SODIUM 50 MG/SENNA 8.6 MG TAB PO SCH (20:32)
[2017-06-04] VITALS (10 sets, daily range): BP systolic 160–190; BP diastolic 60–80; PULSE 51–81; RESP 18–20; TEMP 97.5–98.7; O2SAT 95–99
[2017-06-04] MEDS: cloNIDine HCL 0.1 MG TAB PO PRN ×2 (00:21→18:45)
[2017-06-04] MEDS: HEPARIN SODIUM - SQ 10,000 UNITS/ML VIAL SQ SCH ×2 (01:15→13:13)
[2017-06-04] MEDS: LEVOTHYROXINE SODIUM 100 MCG TAB PO SCH (04:47)
[2017-06-04] MEDS: cloNIDine HCL 0.2 MG TAB PO SCH ×3 (04:49→22:03)
[2017-06-04] MEDS ORDERED: ACETAMINOPHEN/HYDROcodone 325 MG/5 MG TAB PO PRN (08:30)
[2017-06-04] MEDS ORDERED: ACETAMINOPHEN 500 MG CPLT PO PRN (08:30)
[2017-06-04] MEDS: METOPROLOL SUCCINATE 25 MG EXTENDED RELEASE TAB PO SCH (09:00)
[2017-06-04] MEDS: ASPIRIN EC 81 MG TABEC PO SCH (09:13)
[2017-06-04] MEDS: CALCIUM ACETATE 667 MG CAP PO SCH ×3 (09:13→18:45)
[2017-06-04] MEDS: LOSARTAN 50 MG TAB PO SCH (09:13)
[2017-06-04] MEDS: guaiFENesin E.R. 600 MG TAB PO SCH ×2 (09:14→22:03)
[2017-06-04] MEDS: VITAMIN B CMPLX/VITC/FOLIC AC CAP PO SCH (09:14)
[2017-06-04] MEDS: PANTOPRAZOLE SOD 40 MG DELAYED RELEASE TAB PO SCH (09:14)
[2017-06-04] MEDS: NIFEdipine 90 MG SUSTAINED RELEASE TAB PO SCH (09:14)
[2017-06-04] MEDS: predniSONE 10 MG TAB PO SCH ×2 (09:15→22:03)
[2017-06-04] MEDS: NYSTATIN SUSP 500,000 U/5 ML CUP SWISH-SWAL SCH ×4 (09:15→22:03)
[2017-06-04] MEDS: CEFEPIME 2000 MG/NS 100 ML IV SCH ×2 (10:12)
[2017-06-04] MEDS: SODIUM CHLORIDE 0.9% FLUSH 10 ML FLUSH IV FLUSH SCH ×2 (10:12→22:04)
--- NOTE | 2017-06-04 10:34 | PD.ONC.PN ---
Subjective Subjective Remarks Afebrile overnight. patient resting in bed in nad. states she continues to have a scratchy throat. she as able to eat breakfast this morning. Objective Data Date Time Temp Pulse Resp B/P (MAP) Pulse Ox O2 Delivery O2 Flow Rate FiO2 06/04/17 10:30 99 Nasal Cannula 2.00 06/04/17 05:00 97.5 80 18 180/60 (100) 97 06/04/17 00:00 98.7 81 18 190/60 (103) 95 06/03/17 20:55 57 06/03/17 20:00 97.9 61 18 180/60 (100) 97 06/03/17 16:50 98.9 56 162/50 (87) 06/03/17 11:55 99.0 66 16 148/69 (95) 99 Result Diagram: 05/31/17 1703 06/01/17 2110 Culture Results Microbiology Date/Time Source Procedure Growth Status 06/01/17 15:37 Bronchial Washings Other Fungal Smear - Final NO FUNGAL ELEMENTS SEEN. Resulted 06/01/17 15:37 Bronchial Washings Other Fungal Culture Pending Resulted 06/01/17 15:37 Bronchial Brushings Right Upper Lobe Fungal Smear - Final NO FUNGAL ELEMENTS SEEN. Resulted 06/01/17 15:37 Bronchial Brushings Right Upper Lobe Fungal Culture Pending Resulted 06/01/17 15:37 Bronchial Washings Other Acid Fast Stain - Final NO ACID FAST BACILLI SEEN Resulted 06/01/17 15:37 Bronchial Washings Other Mycobacterial Culture Pending Resulted 06/01/17 15:37 Bronchial Brushings Right Upper Lobe Acid Fast Stain - Final NO ACID FAST BACILLI SEEN Resulted 06/01/17 15:37 Bronchial Brushings Right Upper Lobe Mycobacterial Culture Pending Resulted 06/01/17 15:37 Bronchial Brushings Right Upper Lobe Bronchial Aspirate Culture - Final NO GROWTH IN 48 HOURS. Complete 06/01/17 15:37 Bronchial Washings Other Gram Stain - Final Complete 06/01/17 15:37 Bronchial Washings Other Bronchial Culture - Final HEAVY GROWTH NORMAL RESPIRATORY DARWIN Complete Administered Medications Medications (Trade) Dose Ordered Sig/Raheel Route PRN Reason Start Time Stop Time Status Last Admin Dose Admin Aspirin (Ecotrin Ec) 81 mg DAILY PO 05/26/17 09:00 06/04/17 09:13 Atorvastatin Calcium (Lipitor) 10 mg HS PO 05/25/17 21:00 06/03/17 20:31 Fluoxetine HCl (PROzac) 20 mg HS PO 05/25/17 21:00 06/03/17 20:31 Levothyroxine Sodium (Synthroid) 100 mcg DAILY@0600 PO 05/26/17 06:00 06/04/17 04:47 Losartan Potassium (Cozaar) 100 mg DAILY PO 05/26/17 09:00 06/04/17 09:13 Metoprolol Succinate (Toprol Xl) 25 mg DAILY PO 05/26/17 09:00 06/02/17 09:45 Nifedipine (Procardia Xl) 90 mg DAILY PO 05/26/17 09:00 06/04/17 09:14 Senna/Docusate Sodium (Irma-Colace) 4 tab HS PO 05/25/17 21:00 06/03/17 20:32 Fenofibrate (Tricor) 48 mg AC LUNCH PO 05/26/17 11:00 05/31/17 11:22 Multivitamins/ Minerals Therapeutic (Theragran M Tab) 1 tab AC LUNCH PO 05/26/17 11:00 06/02/17 12:22 Pantoprazole Sodium (Protonix) 40 mg DAILY PO 05/26/17 09:00 06/04/17 09:14 Clonidine (Catapres) 0.1 mg Q4H PRN PO SBP>160, DBP>90 05/25/17 12:45 06/04/17 00:21 Sodium Chloride (NS Flush) 2 ml UNSCH PRN IV FLUSH FLUSH AFTER USING IV ACCESS 05/25/17 12:45 06/02/17 04:12 Sodium Chloride (NS Flush) 2 ml BID IV FLUSH 05/25/17 21:00 06/04/17 10:12 Ondansetron HCl (Zofran Inj) 4 mg Q6H PRN IVP NAUSEA OR VOMITING 05/25/17 12:45 06/03/17 20:39 Metoclopramide HCl (Reglan Inj) 5 mg Q6H PRN IV PUSH NAUSEA OR VOMITING 05/25/17 12:45 06/01/17 23:01 Heparin Sodium (Porcine) (Heparin Inj) 5,000 units Q12H SQ 05/25/17 14:00 06/04/17 01:15 Morphine Sulfate (Morphine Inj) 2 mg Q3H PRN IV PUSH Pain 3-5; if unable to take PO 05/25/17 12:45 05/31/17 21:03 Morphine Sulfate (Morphine Inj) 4 mg Q3H PRN IV PUSH Pain 6-10;if unable to take PO 05/25/17 12:45 06/02/17 09:42 Sennosides (Senokot) 17.2 mg Q12H PRN PO Moderate constipation 05/25/17 12:45 05/30/17 08:11 Guaifenesin (Mucinex Er) 600 mg BID PO 05/25/17 12:45 06/04/17 09:14 Sodium Chloride (NS Flush) 5 ml UNSCH PRN IV FLUSH WITH DIALYSIS 05/25/17 15:30 06/01/17 20:10 Ondansetron HCl (Zofran Inj) 4 mg UNSCH PRN IV PUSH WITH DIALYSIS 05/25/17 15:30 06/01/17 20:10 Clonidine (Catapres) 0.1 mg UNSCH PRN PO for BP > 180/100 X 2 readings 05/25/17 15:30 06/01/17 10:30 Gelatin (Gelfoam 12 Mm/7 Mm Top) 1 foam UNSCH PRN TOP SEE LABEL COMMENTS 05/25/17 15:30 06/03/17 11:39 Epoetin Rohan (Epogen Inj) 10,000 units UNSCH PRN IV PUSH WITH DIALYSIS 05/27/17 09:15 06/01/17 11:35 Calcium Acetate (Phoslo) 667 mg TID PO 05/27/17 13:00 06/04/17 09:13 Vitamin B Complex/ Vit C/Folic Acid (Nephrocaps) 1 cap DAILY PO 05/27/17 10:15 06/04/17 09:14 Clonidine (Catapres) 0.3 mg Q8HR PO 05/29/17 14:00 06/04/17 04:49 Prednisone (Deltasone) 10 mg BID PO 05/30/17 21:00 06/04/17 09:15 Nystatin (Mycostatin Liq) 5 ml QID SWISH-SWAL 05/31/17 09:00 06/04/17 09:15 Hydralazine HCl (Apresoline Inj) 20 mg Q4H PRN IV PUSH SBP > 175 06/01/17 17:15 4/18/18 23:03 Cefepime HCl 2000 mg/Sodium Chloride 100 ml @ 200 mls/hr Q24H IV 06/04/17 10:00 06/04/17 10:12 Phenol (Chloraseptic [place]) 2 spray Q2H PRN OROPHARYNG sore throat 06/03/17 15:45 06/04/17 00:23 Objective Remarks GENERAL: pleasant elderly female, upright in bed in nad SKIN: Warm and dry. HEAD: Normocephalic. EYES: No injection or drainage. MOUTH: +oral thrush. NECK: Supple, trachea midline. CARDIOVASCULAR: Regular rate and rhythm RESPIRATORY: clear to auscultation. On 2L O2 GASTROINTESTINAL: Abdomen soft, non-tender, nondistended. EXTREMITIES: No cyanosis NEUROLOGICAL: awake, alert. normal speech. no obvious focal deficit. Assessment/Plan Problem List: (1) Lung cancer ICD Codes: C34.90 - Malignant neoplasm of unspecified part of unspecified bronchus or lung Plan: --follow up in clinic upon discharge History: ++multiple masses in bilateral lungs. Biopsy showed adenocarcinoma. She received stereotactic radiation to 2 lesions in the left lung and 1 on the right. Her PET scan 09/2016 showed post-radiation changes in bilateral lungs. A CT scan in March showed a diffuse consolidation in the right upper lobe, but they appeared to be more consolidated. repeat PET scan again 04/28, which showed increased hypermetabolic uptake in the left hilar area suspicious for recurrent disease + hypermetabolic activity in right upper lobe with corresponding consolidation, but appeared to be stable and likely radiation changes. (2) Anemia due to chronic kidney disease ICD Codes: N18.9 - Chronic kidney disease, unspecified; D63.1 - Anemia in chronic kidney disease Plan: -- receiving Epogen with dialysis. Hgb stable. (3) Pneumonia ICD Codes: J18.9 - Pneumonia, unspecified organism Plan: Symptoms improving. Bronchoscopy showed tracheobronchitis and mucus plugs. Washing culture pending.. Assessment 81y/o female with NSCLC admitted with hypoxia, hemoptysis. history of end-stage renal disease. Hypertension. Hyperlipidemia. Congestive heart failure. Hypothyroidism. Osteoarthritis. Chronic obstructive pulmonary disease. Gastroesophageal reflux disease. Diverticulitis. Plan 1. oncology clear for discharge 2. follow up in clinic upon discharge. Attending Statement The exam, history, and the medical decision-making described in the above note were completed with the assistance of the mid-level provider. I reviewed and agree with the findings presented. I attest that I had a [id number] encounter with the patient on the same day, and personally performed and documented my assessment and findings in the medical record. Mild sore throat. SOB/cough improved. Biopsy of bronchial lesion benign. Cytology pending. D/ c when clear by pulmonology. Jaylin Regalado Jun 04, 2017 10:34 Edmundo Gonsalez MD Jun 04, 2017 15:03
--- NOTE | 2017-06-04 10:35 | HHI.PR ---
Subjective Remarks ALERT, UP AT SIDE OF BED C/O DYSPHAGIA PATH NEGATIVE Objective Vital Signs Date Time Temp Pulse Resp B/P (MAP) Pulse Ox O2 Delivery O2 Flow Rate FiO2 06/04/17 10:30 99 Nasal Cannula 2.00 06/04/17 05:00 97.5 80 18 180/60 (100) 97 06/04/17 00:00 98.7 81 18 190/60 (103) 95 06/03/17 20:55 57 06/03/17 20:00 97.9 61 18 180/60 (100) 97 06/03/17 16:50 98.9 56 162/50 (87) 06/03/17 11:55 99.0 66 16 148/69 (95) 99 I/O 06/03/17 06/03/17 06/03/17 06/04/17 06/04/17 06/04/17 07:00 15:00 23:00 07:00 15:00 23:00 Intake Total 960 ml Output Total 200 ml 3000 ml Balance -200 ml -3000 ml 960 ml Intake Oral 960 ml Output Urine Total 200 ml Hemodialysis 3000 ml # Voids 2 3 # Bowel Movements 0 Result Diagram: 05/31/17 1703 06/01/17 2110 Objective Remarks GENERAL: SKIN: Warm and dry. HEAD: Atraumatic. Normocephalic. EYES: Pupils equal and round. No scleral icterus. No injection or drainage. ENT: No nasal bleeding or discharge. Mucous membranes pink and moist. NECK: Trachea midline. No JVD. CARDIOVASCULAR: Regular rate and rhythm. RESPIRATORY: No accessory muscle use. SCATTERED RHONCHI to auscultation. Breath sounds equal bilaterally. GASTROINTESTINAL: Abdomen soft, non-tender, nondistended. Hepatic and splenic margins not palpable. MUSCULOSKELETAL: Extremities without clubbing, cyanosis, or edema. No obvious deformities. NEUROLOGICAL: Awake and alert. No obvious cranial nerve deficits. Motor grossly within normal limits. Five out of 5 muscle strength in the arms and legs. Normal speech. PSYCHIATRIC: Appropriate mood and affect; insight and judgment normal. Assessment and Plan Assessment and Plan IMPRESSION BILATERAL LUNG INFILTRATES HEMOPTYSIS, RESOLVED LUNG CA ESRD ON MHD DYSPHAGIA PLAN ANTIBX SWALLOW EVALUATION BRONCHODILATOR THERAPY F/U CXRAY Ciarra Lafleur MD Jun 04, 2017 10:35
[2017-06-04] MEDS: FENOFIBRATE 48 MG TAB PO SCH (11:00)
[2017-06-04] MEDS: MULTIVITAMINS/MINERALS THERAPEUTIC TAB PO SCH (11:00)
--- NOTE | 2017-06-04 11:39 | HHI.PR ---
Subjective Remarks Follow up for pneumonia in a patient with lung cancer, ESRD. Patient is currently doing well. Sitting at the side of the bed and eating breakfast. Objective Vitals Vital Signs Date Time Temp Pulse Resp B/P (MAP) Pulse Ox O2 Delivery O2 Flow Rate FiO2 06/04/17 10:33 97.6 51 20 160/70 (100) 98 06/04/17 10:30 99 Nasal Cannula 2.00 06/04/17 05:00 97.5 80 18 180/60 (100) 97 06/04/17 00:00 98.7 81 18 190/60 (103) 95 06/03/17 20:55 57 06/03/17 20:00 97.9 61 18 180/60 (100) 97 06/03/17 16:50 98.9 56 162/50 (87) 06/03/17 11:55 99.0 66 16 148/69 (95) 99 I/O 06/03/17 06/03/17 06/03/17 06/04/17 06/04/17 06/04/17 07:00 15:00 23:00 07:00 15:00 23:00 Intake Total 960 ml Output Total 200 ml 3000 ml Balance -200 ml -3000 ml 960 ml Intake Oral 960 ml Output Urine Total 200 ml Hemodialysis 3000 ml # Voids 2 3 # Bowel Movements 0 Result Diagram: 05/31/17 1703 06/01/17 2110 Imaging Last Impressions Abdomen X-Ray 05/30/17 0953 Signed Impressions: Service Date/Time: Tuesday, May 30, 2017 10:38 - CONCLUSION: No free air. Dillan Mauricio MD FACR Chest CT 05/26/17 0000 Signed Impressions: Service Date/Time: Friday, May 26, 2017 20:15 - CONCLUSION: 1. Improved bilateral pleural effusions since May 17. 2. Multifocal dense consolidation in the lungs with numerous air bronchograms as above, left greater than right. 3. Compression deformities in the lower thoracic spine status post kyphoplasty. Sebastien Hastings MD Chest X-Ray 05/25/17 1006 Signed Impressions: Service Date/Time: Thursday, May 25, 2017 10:13 - CONCLUSION: Stable chest x-ray with chronic right upper lobe and left midlung zone airspace consolidation. Te Freeman MD Objective Remarks GENERAL: Alert, oriented x 3, NAD. SKIN: Warm and dry. HEAD: Normocephalic. EYES: No scleral icterus. No injection or drainage. NECK: Supple, trachea midline. No JVD or lymphadenopathy. CARDIOVASCULAR: Regular rate and rhythm without murmurs, gallops, or rubs. RESPIRATORY: Breath sounds equal bilaterally. No accessory muscle use. GASTROINTESTINAL: Abdomen soft, non-tender, nondistended. MUSCULOSKELETAL: No cyanosis, or edema. BACK: Nontender without obvious deformity. No CVA tenderness Procedures Hemodialysis per Nephrology A/P Problem List: (1) PNA (pneumonia) ICD Code: J18.9 - Pneumonia, unspecified organism Status: Acute (2) End stage renal disease on dialysis ICD Code: N18.6 - End stage renal disease; Z99.2 - Dependence on renal dialysis Status: Chronic (3) COPD exacerbation ICD Code: J44.1 - Chronic obstructive pulmonary disease with (acute) exacerbation Status: Acute (4) Accelerated hypertension ICD Code: I10 - Essential (primary) hypertension Status: Acute (5) Lung cancer ICD Code: C34.90 - Malignant neoplasm of unspecified part of unspecified bronchus or lung (6) Fluid overload ICD Code: E87.70 - Fluid overload, unspecified (7) Chest pain ICD Code: R07.9 - Chest pain, unspecified Status: Acute Assessment and Plan Ms. Calderon is a pleasant 82 year old female with a history of lung cancer, ESRD on , , dialysis who presented to the ED on 05/25/2017 due to chest pain, cough, shortness of breath. CT chest showed multifocal dense consolidation in the lungs with air bronchograms left greater than right. Pulmonary has been following. Patient underwent bronchoscopy on 06/01/2017. Fluid overload with hypoxemia She denies missing dialysis treatment Manage hypertension with clonidine 0.3 mg p.o. 3 times daily 10 year Procardia 90 mg XL, Cozaar 100 mg, Metoprolol daily Troponins were around 0.06. Likely due to supply demand. Continue supplemental oxygen h/o Lung CA w/ growth on Bronchoscopy Suspicious for recurrence of lung cancer, cytology is pending Appreciate oncology consult. Oncology cleared for discharge. Mild dysphagia Pain with swallowing following bronchoscopy. Speech therapy evaluated - patient can continue regular food and thin liquids. Chloraseptic spray provided Single dose of prednisone 40 mg 1 Pneumonia/COPD/hemoptysis Continue with supportive care including oxygen, nebulizers, steroids, Mucinex Continuing antibiotic coverage with cefepime - has received 9 days of abx today. We can likely d/c abx. Encourage incentive spirometry Status post bronchoscopy Appreciate pulmonology consult ESRD on HD Receiving dialysis 3 times per week, denies missing any treatment Appreciate nephrology following Abdominal pain Likely due to constipation History of sigmoid surgery many years ago Continue with senna and other softeners GERD, hyperlipidemia, hypothyroidism continue on home medications DVT prophylaxis heparin Discharge plan: Will discuss with Dr. Lafleur - If okay with him, we can discharge patient. Problem Qualifiers (1) Chest pain: Qualified Codes: R07.9 - Chest pain, unspecified Maico Campbell DO Jun 04, 2017 11:39 am
--- NOTE | 2017-06-04 11:40 | HHI.FF ---
Face to Face Verification Diagnosis: (1) PNA (pneumonia) (2) End stage renal disease on dialysis (3) Lung cancer Physical Therapy Order: Evaluate and Treat, Improve ambulation, Strength and gait training Home Health Nursing Order: Medical education Signs/symptoms of disease process Oxygen administration education Medication education-adverse effect Nursing assessment with vital signs I have seen patient Georgia Calderon on 06/04/17. My clinical findings support the need for the requested home health care services because: Ltd mobility - disease progression Deconditioned w/ increased weakness Limited ability to care for self Need for psychosocial assistance High risk of falls Infection w/ risk of complications I certify that my clinical findings support that this patient is homebound because: Unsteady gait/balance Unsafe to leave home unassisted Unable to use public transportation Maico Campbell DO Jun 04, 2017 11:40 am
[2017-06-04] MEDS: ONDANSETRON HCL 4 MG/2 ML VIAL IVP PRN ×2 (11:43→22:15)
--- NOTE | 2017-06-04 13:56 | RADRPT ---
EXAM DATE/TIME: 06/04/2017 13:41 [place] COMPARISON: CHEST SINGLE AP, May 25, 2017, 10:13. CT THORAX W/O CONTRAST, May 26, 2017, 20:15. INDICATIONS : Chest pain, short of breath MEDICAL HISTORY : Cardiovascular disease. Hypertension. Chronic obstructive pulmonary disease. Renal failure,dialysis, lung cancer, anemia. SURGICAL HISTORY : Tubal ligation. AV Shunt. ENCOUNTER: Subsequent ACUITY: 2 weeks PAIN SCORE: 5/10 LOCATION: Bilateral chest FINDINGS: PA and lateral views of the chest demonstrate cardiomegaly with confluent opacities in the upper lobe s. Patchy densities are also seen within the lingula. There is bilateral hilar prominence. Osseous s tructures are intact. CONCLUSION: Cardiomegaly with bilateral upper lobe opacities slightly more confluence on current study. Patchy de nsities left lower lobe. Patrice Loya MD on June 04, 2017 at 13:51 Board Certified Radiologist. This report was verified electronically.
--- NOTE | 2017-06-04 14:05 | HHI.NPPN ---
Subjective General Problems: Anemia Renal Failure: Chronic, End Stage Renal Disease Interval History Dialyzed yesterday. No new issues. (Milana Sandoval) Review of Systems General Constitutional: Fatigue (Milana Sandoval) Eyes Eyes Remarks worsening visual impairment (Milana Sandoval) Respiratory Lungs: SOB, Cough, Sputum (Milana Sandoval) Gastrointestinal Gastrointestinal: Abdominal Pain (Milana Sandoval) Objective Data Data Vital Signs Date Time Temp Pulse Resp B/P (MAP) Pulse Ox O2 Delivery O2 Flow Rate FiO2 06/04/17 13:44 57 06/04/17 12:52 97.9 55 20 170/80 (110) 98 06/04/17 10:33 97.6 51 20 160/70 (100) 98 06/04/17 10:30 99 Nasal Cannula 2.00 06/04/17 08:30 52 06/04/17 05:00 97.5 80 18 180/60 (100) 97 06/04/17 00:00 98.7 81 18 190/60 (103) 95 06/03/17 20:55 57 06/03/17 20:00 97.9 61 18 180/60 (100) 97 06/03/17 16:50 98.9 56 162/50 (87) (Milana Sandoval) -: 05/31/17 1703 06/01/17 2110 Physical Exam General Appearance: Well Developed, No Acute Distress, Comfortable, Malnourished (Milana Sandoval) Throat Throat Exam: Oral Mucosa [place] & Moist (Milana Sandoval) Pulmonary Resp Exam: Breath Sounds Equal, Crackles, Rhonchi, Sputum, Decreased Bases (Milana Sandoval) Cardiology CV Exam: Normal Sinus Rhythm, Good Perfusion (Milana Sandoval) Gastrointestinal/Abdomen GI Exam: Soft, Non-Tender, Distended (Milana Sandoval) Musculoskeletal MS Exam: Joints Intact, Normal Tone, Good Strength (Milana Sandoval) Integumentary Skin Exam: Clear, Warm, Dry, Intact (Milana Sandoval) Extremeties Extremities Exam: No Edema, Pedal Pulses Palpable (Milana Sandoval) Neurologic Neuro Exam: Alert, Awake, Oriented, Speech Clear, Moving All Extremities (Milana Sandoval) Psychiatric Psych Exam: Appropriate Responses (Milana Sandoval) Assessment/Plan Discussed Condition With: Patient Assessment Summary: Anemia of CKD, Hypertension, End Stage Renal Disease Problem List: (1) End stage renal disease on dialysis ICD Codes: N18.6 - End stage renal disease; Z99.2 - Dependence on renal dialysis Status: Chronic Plan: Continue HD support TTS. She has outpatient arrangements for after discharge. Dialyzed yesterday. AVF is patent, protect left upper extremity Avoid IVF administration High protein, low phosphorus diet ordered Obtain intermittent renal profile. On calcium acetate for metabolic bone disorder (2) Chest pain ICD Codes: R07.9 - Chest pain, unspecified Status: Acute Plan: Mild elevation of troponin in the setting of renal failure No reports of chest pain currently (3) Pneumonia ICD Codes: J18.9 - Pneumonia, unspecified organism Plan: On cefepime Serial imaging reviewed. Continue Oxygen, nebulizers, IS, pulmonary toilet Bronchoscopy done on 05/31. A growth seen in the bronchus, biopsy taken. Oncology is also following given history of lung cancer. She needs to followup with radiation oncology. Her prognosis is guarded to poor. (4) Anemia ICD Codes: D64.9 - Anemia, unspecified Status: Acute Plan: Epogen with dialysis (Milana Sandoval) Plan patient was seen and examined on 06/04/17. Poor prognosis. Agree with above assessment and plan. (Gt Trejo MD) Problem Qualifiers (1) Chest pain: Qualified Codes: R07.9 - Chest pain, unspecified Milana Sandoval Jun 04, 2017 14:05 Gt Trejo MD Jun 07, 2017 09:38
[2017-06-04] MEDS: ATORVASTATIN 10 MG TAB PO SCH (22:03)
[2017-06-04] MEDS: FLUoxetine HCL 20 MG CAP PO SCH (22:03)
[2017-06-04] MEDS: DOCUSATE SODIUM 50 MG/SENNA 8.6 MG TAB PO SCH (22:04)
[2017-06-05] VITALS (8 sets, daily range): BP systolic 161–180; BP diastolic 58–83; PULSE 60–70; RESP 17–18; TEMP 97.6–98.8; O2SAT 94–100
[2017-06-05] MEDS: cloNIDine HCL 0.1 MG TAB PO PRN (00:02)
[2017-06-05] MEDS: HEPARIN SODIUM - SQ 10,000 UNITS/ML VIAL SQ SCH ×2 (02:39→13:13)
[2017-06-05] MEDS: LEVOTHYROXINE SODIUM 100 MCG TAB PO SCH (05:21)
[2017-06-05] MEDS: cloNIDine HCL 0.2 MG TAB PO SCH ×3 (05:27→21:07)
[2017-06-05] MEDS: CALCIUM ACETATE 667 MG CAP PO SCH ×3 (09:00→18:17)
[2017-06-05] MEDS: NIFEdipine 90 MG SUSTAINED RELEASE TAB PO SCH (09:00)
[2017-06-05] MEDS: NYSTATIN SUSP 500,000 U/5 ML CUP SWISH-SWAL SCH ×4 (09:00→21:05)
--- NOTE | 2017-06-05 09:22 | HHI.NPPN ---
Subjective General Problems: Anemia Renal Failure: Chronic, End Stage Renal Disease Additional Remarks Seen during hemodialysis tolerating well. Reports occasional shortness of breath. No edema. (Viktoria Tristan) Review of Systems General Constitutional: Fatigue (Viktoria Tristan) Eyes Eyes Remarks worsening visual impairment (Viktoria Tristan) Respiratory Lungs: SOB, Sputum (Viktoria Tristan) Objective Data Data Vital Signs Date Time Temp Pulse Resp B/P (MAP) Pulse Ox O2 Delivery O2 Flow Rate FiO2 06/05/17 08:00 97.6 65 18 171/83 (112) 96 Manual Cuff/Auscultation 06/05/17 05:00 97.8 63 18 180/60 (100) 99 06/05/17 02:44 Nasal Cannula 2.00 06/05/17 02:41 60 18 172/58 (96) 06/05/17 00:00 98.0 65 18 177/58 (97) 100 06/04/17 22:50 Nasal Cannula 2.00 06/04/17 22:30 Nasal Cannula 2.00 06/04/17 21:47 Nasal Cannula 2.00 06/04/17 20:00 98.2 58 18 180/60 (100) 96 06/04/17 20:00 58 06/04/17 16:50 97.8 63 20 190/70 (110) 99 06/04/17 16:00 59 06/04/17 13:44 57 06/04/17 12:52 97.9 55 20 170/80 (110) 98 06/04/17 12:22 Nasal Cannula 2.00 Humidified 06/04/17 10:33 97.6 51 20 160/70 (100) 98 06/04/17 10:30 99 Nasal Cannula 2.00 (Viktoria Tristan) -: 06/01/17 2110 Physical Exam General Appearance: Well Developed, No Acute Distress, Comfortable, Malnourished (Viktoria Tristan) Throat Throat Exam: Oral Mucosa [place] & Moist (Viktoria Tristan) Pulmonary Resp Exam: Breath Sounds Equal, Crackles, Rhonchi, Sputum, Decreased Bases (Viktoria Tristan) Cardiology CV Exam: Normal Sinus Rhythm, Good Perfusion (Viktoria Tristan) Gastrointestinal/Abdomen GI Exam: Soft, Non-Tender, Distended (Viktoria Tristan) Musculoskeletal MS Exam: Joints Intact, Normal Tone, Good Strength (Viktoria Tristan) Integumentary Skin Exam: Clear, Warm, Dry, Intact (Viktoria Tristan) Extremeties Extremities Exam: No Edema, Pedal Pulses Palpable (Viktoria Tristan) Neurologic Neuro Exam: Alert, Awake, Oriented, Speech Clear, Moving All Extremities (Viktoria Tristan) Psychiatric Psych Exam: Appropriate Responses (Viktoria Tristan) Assessment/Plan Discussed Condition With: Patient Assessment Summary: Anemia of CKD, Hypertension, End Stage Renal Disease Problem List: (1) End stage renal disease on dialysis ICD Codes: N18.6 - End stage renal disease; Z99.2 - Dependence on renal dialysis Status: Chronic Plan: Continue HD support TTS. She has outpatient arrangements for after discharge. AVF is patent, protect left upper extremity Avoid IVF administration High protein, low phosphorus diet ordered Obtain intermittent renal profile. On calcium acetate for metabolic bone disorder Seen during hemodialysis tolerating well. (2) Chest pain ICD Codes: R07.9 - Chest pain, unspecified Status: Acute Plan: Mild elevation of troponin in the setting of renal failure No reports of chest pain currently (3) Pneumonia ICD Codes: J18.9 - Pneumonia, unspecified organism Plan: On cefepime Serial imaging reviewed. Continue Oxygen, nebulizers, IS, pulmonary toilet Bronchoscopy done on 05/31. A growth seen in the bronchus, biopsy taken. Oncology is also following given history of lung cancer. She needs to followup with radiation oncology. Her prognosis is guarded to poor. (4) Anemia ICD Codes: D64.9 - Anemia, unspecified Status: Acute Plan: Epogen with dialysis (Viktoria Tristan) Problem List: (1) End stage renal disease on dialysis ICD Codes: N18.6 - End stage renal disease; Z99.2 - Dependence on renal dialysis Status: Chronic Plan: Continue HD support TTS. She has outpatient arrangements for after discharge. AVF is patent, protect left upper extremity Avoid IVF administration High protein, low phosphorus diet ordered Obtain intermittent renal profile. On calcium acetate for metabolic bone disorder Seen during hemodialysis tolerating well. Patient seen and examined, agree with above. HD now, remove fluid as tolerated. (2) Chest pain ICD Codes: R07.9 - Chest pain, unspecified Status: Acute Plan: Mild elevation of troponin in the setting of renal failure No reports of chest pain currently (3) Pneumonia ICD Codes: J18.9 - Pneumonia, unspecified organism Plan: On cefepime Serial imaging reviewed. Continue Oxygen, nebulizers, IS, pulmonary toilet Bronchoscopy done on 05/31. A growth seen in the bronchus, biopsy taken. Oncology is also following given history of lung cancer. She needs to followup with radiation oncology. Her prognosis is guarded to poor. (4) Anemia ICD Codes: D64.9 - Anemia, unspecified Status: Acute Plan: Epogen with dialysis (Jose Sanford MD) Problem Qualifiers (1) Chest pain: Qualified Codes: R07.9 - Chest pain, unspecified Viktoria Tristan Jun 05, 2017 09:22 Jose Sanford MD Jun 05, 2017 09:26
[2017-06-05] MEDS: EPOETIN ALFA 10,000 UNITS/ML VIAL IV PUSH PRN (09:47)
[2017-06-05] MEDS: GELATIN 12 MM/7 MM FOAM TOP PRN (09:49)
[2017-06-05] MEDS: CEFEPIME 2000 MG/NS 100 ML IV SCH ×2 (13:00)
--- NOTE | 2017-06-05 13:02 | HHI.PR ---
Subjective Remarks Patient is on 2L oxygen with good sats. Looks comfortable just came back from HD. Afebrile. Objective Vital Signs Vital Signs Date Time Temp Pulse Resp B/P (MAP) Pulse Ox O2 Delivery O2 Flow Rate FiO2 06/05/17 08:00 97.6 65 18 171/83 (112) 96 Manual Cuff/Auscultation 06/05/17 05:00 97.8 63 18 180/60 (100) 99 06/05/17 02:44 Nasal Cannula 2.00 06/05/17 02:41 60 18 172/58 (96) 06/05/17 00:00 98.0 65 18 177/58 (97) 100 06/04/17 22:50 Nasal Cannula 2.00 06/04/17 22:30 Nasal Cannula 2.00 06/04/17 21:47 Nasal Cannula 2.00 06/04/17 20:00 98.2 58 18 180/60 (100) 96 06/04/17 20:00 58 06/04/17 16:50 97.8 63 20 190/70 (110) 99 06/04/17 16:00 59 06/04/17 13:44 57 I/O 06/04/17 06/04/17 06/04/17 06/05/17 06/05/17 06/05/17 07:00 15:00 23:00 07:00 15:00 23:00 Intake Total 720 ml Balance 720 ml Intake Oral 720 ml # Voids 3 1 4 Result Diagram: 06/01/17 2110 Other Results Last Impressions Chest X-Ray 06/04/17 0000 Signed Impressions: Service Date/Time: Sunday, June 04, 2017 13:41 - CONCLUSION: Cardiomegaly with bilateral upper lobe opacities slightly more confluence on current study. Patchy densities left lower lobe. Patrice Loya MD Abdomen X-Ray 05/30/17 0953 Signed Impressions: Service Date/Time: Tuesday, May 30, 2017 10:38 - CONCLUSION: No free air. Dillan Mauricio MD FACR Chest CT 05/26/17 0000 Signed Impressions: Service Date/Time: Friday, May 26, 2017 20:15 - CONCLUSION: 1. Improved bilateral pleural effusions since May 17. 2. Multifocal dense consolidation in the lungs with numerous air bronchograms as above, left greater than right. 3. Compression deformities in the lower thoracic spine status post kyphoplasty. Sebastien Hastings MD Objective Remarks GENERAL: Patient is 82 yo lying in bed in NAD SKIN: Warm and dry. HEAD: Normocephalic. EYES: No scleral icterus. No injection or drainage. NECK: Supple, trachea midline. No JVD or lymphadenopathy. CARDIOVASCULAR: Regular rate and rhythm without murmurs, gallops, or rubs. RESPIRATORY: Breath sounds equal bilaterally. No accessory muscle use. GASTROINTESTINAL: Abdomen soft, non-tender, nondistended. MUSCULOSKELETAL: No cyanosis, or edema. Neuro: Awake and alert A/P Assessment and Plan 1)Resp Insuff 2)Pneumonia 3)Lung ca-NSCLC 4)ESRD 5)Anemia Plan Continue with oxygen keep sats >92% Bronchodilators Check CXR in am Monitor renal function, HD per renal. Oncology is following- signed off Continue abx ( Cefepime) monitor for isgns of infections ( Fever, WBC) s/p bronch on 06/01- cxs negative GI/DVT prophylaxis- per primary team Continue treatment plan Bernarda Mckinney MD Jun 05, 2017 13:02
[2017-06-05] MEDS: ASPIRIN EC 81 MG TABEC PO SCH (13:14)
[2017-06-05] MEDS: guaiFENesin E.R. 600 MG TAB PO SCH ×2 (13:14→21:06)
[2017-06-05] MEDS: predniSONE 10 MG TAB PO SCH ×2 (13:14→21:06)
[2017-06-05] MEDS: METOPROLOL SUCCINATE 25 MG EXTENDED RELEASE TAB PO SCH (13:14)
[2017-06-05] MEDS: MULTIVITAMINS/MINERALS THERAPEUTIC TAB PO SCH (13:14)
[2017-06-05] MEDS: PANTOPRAZOLE SOD 40 MG DELAYED RELEASE TAB PO SCH (13:15)
[2017-06-05] MEDS: VITAMIN B CMPLX/VITC/FOLIC AC CAP PO SCH (13:15)
[2017-06-05] MEDS: LOSARTAN 50 MG TAB PO SCH (13:15)
[2017-06-05] MEDS ORDERED: ATOR20TA15 PO (14:21)
--- NOTE | 2017-06-05 14:24 | HHI.DS ---
Discharge Summary Admission Date May 25, 2017 at 3:29 pm Discharge Date: Jun 05, 2017 Admitting Diagnosis POSSIBLE PNA, MISSED DIALYSIS, HYPOXEMIA (1) PNA (pneumonia) ICD Code: J18.9 - Pneumonia, unspecified organism Status: Acute (2) End stage renal disease on dialysis ICD Code: N18.6 - End stage renal disease; Z99.2 - Dependence on renal dialysis Status: Chronic (3) COPD exacerbation ICD Code: J44.1 - Chronic obstructive pulmonary disease with (acute) exacerbation Status: Acute (4) Accelerated hypertension ICD Code: I10 - Essential (primary) hypertension Status: Acute (5) Lung cancer ICD Code: C34.90 - Malignant neoplasm of unspecified part of unspecified bronchus or lung (6) Fluid overload ICD Code: E87.70 - Fluid overload, unspecified (7) Chest pain ICD Code: R07.9 - Chest pain, unspecified Status: Acute Procedures Hemodialysis per Nephrology Bronchoscopy 06/01/2017 1. Moderate tracheobronchitis. 2. Excess mucoid secretion and plugging. 3. Growth bronchus intermedius above right middle lobe, as above. 4. Samples obtained as above. 5. Procedure well tolerated. 6. The patient transferred to Recovery in stable condition. Brief History - From Admission Patient is a 81-year-old female who has a history of lung cancer and end-stage renal disease on hemodialysis Wednesday, , and Wednesday. As well as hypertension and hypercholesterolemia and hypothyroidism and congestive heart failure and lung cancer who presents to the emergency department for chest pain for the past 3 days associated with a productive cough having more difficulty breathing as well as midsternal radiating towards the back she describes as 9 out of 10 intensity she wears oxygen at home and is only saturating in the 77% on a couple liters. Therefore the patient will be admitted for hypoxia and treatment of her COPD/bronchitis as well as her end-stage renal disease on hemodialysis and chest pain more than likely due to her lung cancer CBC/BMP: 06/01/17 2110 Imaging Last Impressions Chest X-Ray 06/04/17 0000 Signed Impressions: Service Date/Time: Sunday, June 04, 2017 13:41 - CONCLUSION: Cardiomegaly with bilateral upper lobe opacities slightly more confluence on current study. Patchy densities left lower lobe. Patrice Loya MD Abdomen X-Ray 05/30/17 0953 Signed Impressions: Service Date/Time: Tuesday, May 30, 2017 10:38 - CONCLUSION: No free air. Dillan Mauricio MD FACR Chest CT 05/26/17 0000 Signed Impressions: Service Date/Time: Friday, May 26, 2017 20:15 - CONCLUSION: 1. Improved bilateral pleural effusions since May 17. 2. Multifocal dense consolidation in the lungs with numerous air bronchograms as above, left greater than right. 3. Compression deformities in the lower thoracic spine status post kyphoplasty. Sebastien Hastings MD PE at Discharge GENERAL: Alert, oriented x 3, NAD. SKIN: Warm and dry. HEAD: Normocephalic. EYES: No scleral icterus. No injection or drainage. NECK: Supple, trachea midline. No JVD or lymphadenopathy. CARDIOVASCULAR: Regular rate and rhythm without murmurs, gallops, or rubs. RESPIRATORY: Breath sounds equal bilaterally. No accessory muscle use. GASTROINTESTINAL: Abdomen soft, non-tender, nondistended. MUSCULOSKELETAL: No cyanosis, or edema. BACK: Nontender without obvious deformity. No CVA tenderness Pt update on day of discharge Patient is currently doing well. No chest pain, shortness of breath, fever or chills. Hospital Course Ms. Calderon is a pleasant 82 year old female with a history of lung cancer, ESRD on dialysis who presented to the ED on 05/25/2017 due to chest pain, cough, shortness of breath. CT chest showed multifocal dense consolidation in the lungs with air bronchograms left greater than right. Pulmonary has been following. Patient underwent bronchoscopy on 06/01/2017. Fluid overload with hypoxemia She denies missing dialysis treatment Manage hypertension with clonidine 0.3 mg p.o. 3 times daily 10 year Procardia 90 mg XL, Cozaar 100 mg, Metoprolol daily Troponins were around 0.06. Likely due to supply demand. Continue supplemental oxygen h/o Lung CA w/ growth on Bronchoscopy Suspicious for recurrence of lung cancer, cytology is pending Appreciate oncology consult. Oncology cleared for discharge. Mild dysphagia Pain with swallowing following bronchoscopy. Speech therapy evaluated - patient can continue regular food and thin liquids. Chloraseptic spray provided Single dose of prednisone 40 mg 1 Pneumonia/COPD/hemoptysis Continue with supportive care including oxygen, nebulizers, steroids, Mucinex Continuing antibiotic coverage with cefepime - has received 9 days of abx. No further abx. Encourage incentive spirometry Status post bronchoscopy Appreciate pulmonology consult ESRD on HD Receiving dialysis 3 times per week, denies missing any treatment Appreciate nephrology following Abdominal pain Likely due to constipation History of sigmoid surgery many years ago Continue with senna and other softeners Constipation Possible rectal prolapse Chronic problem. I have discussed with Dr. Galan (Colorectal surgeon) who recommended outpatient followup On 06/05/2017, patient required Mag Citrate to have a bowel movement. She has seen Dr. Galan before. She will make an appointment to see Dr. Galan. GERD, hyperlipidemia, hypothyroidism continue on home medications DVT prophylaxis heparin Pt Condition on Discharge: Good Discharge Disposition: Disch w/ Home Health Serv Discharge Time: > 30 minutes Discharge Instructions DIET: Follow Instructions for: Renal Failure Diet Activities you can perform: Regular-No Restrictions Follow up Referrals: Colorectal Surgery - 1 Week with Leida Galan MD PCP Follow-up - 1 Week Pulmonology - 2 Weeks with Ciarra Lafleur MD SNF/[facility]/ with [facility]/ with [facility] DAILYSIS: [phone] New Medications: Ondansetron Odt (Zofran Odt) 4 Mg Tab 4 MG SL Q6HR PRN for Nausea/Vomiting, #30 TAB 0 Refills Atorvastatin (Atorvastatin) 20 Mg Tab 20 MG PO HS for Cholesterol Management, #30 TAB 11 Refills Continued Medications: Albuterol 18 GM Inh (Ventolin Hfa 18 GM Inh) 90 Mcg/Act Aer 2 PUFF INH Q4H PRN for SHORTNESS OF BREATH, #1 INHALER [address] (Aspirin Adult Low Strength) 81 Mg Tabdr 81 MG PO DAILY, TAB Calcitriol (Calcitriol) 0.25 Mcg Cap 0.25 MCG PO DAILY for Calcium Supplement, #30 CAP 0 Refills Clonidine (Catapres) 0.2 Mg Tab 0.2 MG PO Q8HR for Blood Pressure Management, #60 TAB 0 Refills Fluoxetine (Fluoxetine) 20 Mg Tab 20 MG PO HS for Depression Control, TAB 0 Refills Fluticasone Nasal Anita (Flonase Nasal Anita) 50 Mcg/Act Anita 2 SPRAY EACH NARE DAILY PRN for ALLERGIES, #1 BOTTLE 0 Refills Levothyroxine (Levothyroxine) 100 Mcg Tab 100 MCG PO DAILY for Thyroid, TAB 0 Refills Losartan (Losartan) 100 Mg Tab 100 MG PO DAILY for Blood Pressure Management, TAB 0 Refills Lutein (Lutein) 20 Mg Cap 20 MG PO DAILY for Nutritional Supplement, CAP 0 Refills Metoprolol Succinate ER 24 HR (Metoprolol Succinate ER 24 HR) 25 Mg Tab 25 MG PO DAILY for Blood Pressure Management, TAB 0 Refills Multiple Vitamins W/ Minerals (Centrum Silver Adult 50+) 1 Tab Tab 1 TAB PO AC LUNCH Nifedipine (Nifedipine ER) 90 Mg Tab 90 MG PO DAILY Omeprazole (Omeprazole) 40 Mg Cap 40 MG PO DAILY, #30 CAP 0 Refills Sennosides-Docusate Sodium (Senna S) 8.6-50 Mg Tab 4 TAB PO HS Sucralfate (Sucralfate) 1 Gm Tab 1 GM PO TID for ULCER PREVENTION, #90 TAB 0 Refills on empty stomach Discontinued Medications: Atorvastatin (Atorvastatin) 10 Mg Tab 10 MG PO HS for Cholesterol Management, TAB 0 Refills Fenofibrate (Fenofibrate) 54 Mg Tab 54 MG PO AC LUNCH for Cholesterol Management, TAB 0 Refills Maico Campbell DO Jun 05, 2017 14:24
[2017-06-05] MEDS ORDERED: MAGNESIUM CITRATE SOLN 300 ML BTL PO ONE (15:45)
[2017-06-05] MEDS: ONDANSETRON HCL 4 MG/2 ML VIAL IV PUSH PRN (16:35)
[2017-06-05] MEDS ORDERED: ATORVASTATIN 20 MG TAB PO SCH (21:00)
[2017-06-05] MEDS: SODIUM CHLORIDE 0.9% FLUSH 10 ML FLUSH IV FLUSH SCH ×2 (21:00→21:27)
[2017-06-05] MEDS: FLUoxetine HCL 20 MG CAP PO SCH (21:06)
[2017-06-05] MEDS: DOCUSATE SODIUM 50 MG/SENNA 8.6 MG TAB PO SCH (21:07)
--- NOTE | 2017-06-05 23:58 | HHI.PR ---
Subjective Remarks Follow up for pneumonia in a patient with lung cancer, ESRD. Patient was doing well. She was actually discharged. However, in the afternoon, during an attempt to have BM, she had much difficulty. RN tried to do manual disimpaction. Later, she received Mag citrate which helped her to have a BM. Discharge home was cancelled. Objective Vitals Vital Signs Date Time Temp Pulse Resp B/P (MAP) Pulse Ox O2 Delivery O2 Flow Rate FiO2 06/05/17 17:11 94 21 06/05/17 16:00 97.8 70 18 161/70 (100) 94 06/05/17 13:23 Nasal Cannula 3.00 06/05/17 08:00 97.6 65 18 171/83 (112) 96 Manual Cuff/Auscultation 06/05/17 05:00 97.8 63 18 180/60 (100) 99 06/05/17 02:44 Nasal Cannula 2.00 06/05/17 02:41 60 18 172/58 (96) 06/05/17 00:00 98.0 65 18 177/58 (97) 100 I/O 06/05/17 06/05/17 06/05/17 06/06/17 06/06/17 06/06/17 07:00 15:00 23:00 07:00 15:00 23:00 Output Total 2500 ml Balance -2500 ml Hemodialysis 2500 ml # Voids 4 Result Diagram: 06/01/172109 Objective Remarks GENERAL: Alert, oriented x 3, NAD. SKIN: Warm and dry. HEAD: Normocephalic. EYES: No scleral icterus. No injection or drainage. NECK: Supple, trachea midline. No JVD or lymphadenopathy. CARDIOVASCULAR: Regular rate and rhythm without murmurs, gallops, or rubs. RESPIRATORY: Breath sounds equal bilaterally. No accessory muscle use. GASTROINTESTINAL: Abdomen soft, non-tender, nondistended. MUSCULOSKELETAL: No cyanosis, or edema. BACK: Nontender without obvious deformity. No CVA tenderness Procedures Hemodialysis per Nephrology Bronchoscopy 06/01/2017 1. Moderate tracheobronchitis. 2. Excess mucoid secretion and plugging. 3. Growth bronchus intermedius above right middle lobe, as above. 4. Samples obtained as above. 5. Procedure well tolerated. 6. The patient transferred to Recovery in stable condition. A/P Problem List: (1) PNA (pneumonia) ICD Code: J18.9 - Pneumonia, unspecified organism Status: Acute (2) End stage renal disease on dialysis ICD Code: N18.6 - End stage renal disease; Z99.2 - Dependence on renal dialysis Status: Chronic (3) COPD exacerbation ICD Code: J44.1 - Chronic obstructive pulmonary disease with (acute) exacerbation Status: Acute (4) Accelerated hypertension ICD Code: I10 - Essential (primary) hypertension Status: Acute (5) Lung cancer ICD Code: C34.90 - Malignant neoplasm of unspecified part of unspecified bronchus or lung (6) Fluid overload ICD Code: E87.70 - Fluid overload, unspecified (7) Chest pain ICD Code: R07.9 - Chest pain, unspecified Status: Acute Assessment and Plan Ms. Calderon is a pleasant 82 year old female with a history of lung cancer, ESRD on , dialysis who presented to the ED on 05/25/2017 due to chest pain, cough, shortness of breath. CT chest showed multifocal dense consolidation in the lungs with air bronchograms left greater than right. Pulmonary has been following. Patient underwent bronchoscopy on 06/01/2017. Fluid overload with hypoxemia She denies missing dialysis treatment Manage hypertension with clonidine 0.3 mg p.o. 3 times daily 10 year Procardia 90 mg XL, Cozaar 100 mg, Metoprolol daily Troponins were around 0.06. Likely due to supply demand. Continue supplemental oxygen h/o Lung CA w/ growth on Bronchoscopy Suspicious for recurrence of lung cancer, cytology is pending Appreciate oncology consult. Oncology cleared for discharge. Mild dysphagia Pain with swallowing following bronchoscopy. Speech therapy evaluated - patient can continue regular food and thin liquids. Chloraseptic spray provided Single dose of prednisone 40 mg 1 Pneumonia/COPD/hemoptysis Continue with supportive care including oxygen, nebulizers, steroids, Mucinex Continuing antibiotic coverage with cefepime - has received 9 days of abx today. We can likely d/c abx. Encourage incentive spirometry Status post bronchoscopy Appreciate pulmonology consult ESRD on HD Receiving dialysis 3 times per week, denies missing any treatment Appreciate nephrology following Abdominal pain Likely due to constipation History of sigmoid surgery many years ago Continue with senna and other softeners Patient is advised to follow up with a colorectal surgeon in the outpatient setting. GERD, hyperlipidemia, hypothyroidism continue on home medications DVT prophylaxis heparin Likely discharge on 06/06/2017. Problem Qualifiers (1) Chest pain: Qualified Codes: R07.9 - Chest pain, unspecified Maico Campbell DO Jun 05, 2017 11:58 pm
[2017-06-06] VITALS (7 sets, daily range): BP systolic 148–187; BP diastolic 80–101; PULSE 50–69; RESP 17–20; TEMP 98–98.2; O2SAT 94–99
[2017-06-06] MEDS: HEPARIN SODIUM - SQ 10,000 UNITS/ML VIAL SQ SCH ×2 (03:47→12:56)
--- NOTE | 2017-06-06 05:41 | RADRPT ---
EXAM DATE/TIME: 06/06/2017 04:02 [facility] COMPARISON: CHEST PA & LAT, June 04, 2017, 13:41. CHEST SINGLE AP, May 25, 2017, 10:13. INDICATIONS : Shortness of breath. MEDICAL HISTORY : Hypertension. Chronic obstructive pulmonary disease. Cardiovascular disease. Carcinoma, lung. Ane callie. SURGICAL HISTORY : Tubal ligation. AV shunt. ENCOUNTER: Subsequent ACUITY: 2 weeks PAIN SCORE: 0/10 LOCATION: Bilateral chest FINDINGS: A single portable frontal view the chest shows no change in the bilateral consolidations. No signific ant improvement occurring within the left upper lobe component. Tiny left effusion. Significant cardi omegaly. Calcified aorta. A scoliotic and degenerative spine. Person and augmentation at 3 levels at the thoracolumbar junction. CONCLUSION: Unchanged bilateral upper lobe consolidations and cardiomegaly. Shashi Olson Jr., MD on June 06, 2017 at 5:38 Board Certified Radiologist. This report was verified electronically.
[2017-06-06] MEDS: LEVOTHYROXINE SODIUM 100 MCG TAB PO SCH (06:33)
[2017-06-06] MEDS: cloNIDine HCL 0.2 MG TAB PO SCH ×2 (06:33→12:56)
[2017-06-06] MEDS: CALCIUM ACETATE 667 MG CAP PO SCH ×2 (08:05→12:55)
[2017-06-06] MEDS: ASPIRIN EC 81 MG TABEC PO SCH (08:05)
[2017-06-06] MEDS: NYSTATIN SUSP 500,000 U/5 ML CUP SWISH-SWAL SCH ×2 (08:05→12:56)
[2017-06-06] MEDS: guaiFENesin E.R. 600 MG TAB PO SCH (08:05)
[2017-06-06] MEDS: NIFEdipine 90 MG SUSTAINED RELEASE TAB PO SCH (08:05)
[2017-06-06] MEDS: LOSARTAN 50 MG TAB PO SCH (08:06)
[2017-06-06] MEDS: METOPROLOL SUCCINATE 25 MG EXTENDED RELEASE TAB PO SCH (08:06)
[2017-06-06] MEDS: predniSONE 10 MG TAB PO SCH (08:06)
[2017-06-06] MEDS: PANTOPRAZOLE SOD 40 MG DELAYED RELEASE TAB PO SCH (08:06)
[2017-06-06] MEDS: VITAMIN B CMPLX/VITC/FOLIC AC CAP PO SCH (08:06)
[2017-06-06] MEDS: CEFEPIME 2000 MG/NS 100 ML IV SCH ×2 (09:39)
[2017-06-06] MEDS: SODIUM CHLORIDE 0.9% FLUSH 10 ML FLUSH IV FLUSH SCH (09:39)
[2017-06-06] MEDS: ONDANSETRON HCL 4 MG/2 ML VIAL IV PUSH PRN (09:39)
--- NOTE | 2017-06-06 09:46 | HHI.NPPN ---
Subjective General Problems: Anemia Renal Failure: Chronic, End Stage Renal Disease Additional Remarks Reports occasional shortness of breath which is chronic. No edema. Reported that she is being discharged today. (Viktoria Tristan) Review of Systems General Constitutional: Fatigue (Viktoria Tristan) Eyes Eyes Remarks worsening visual impairment (Viktoria Tristan) Respiratory Lungs: SOB, Sputum (Viktoria Tristan) Objective Data Data Vital Signs Date Time Temp Pulse Resp B/P (MAP) Pulse Ox O2 Delivery O2 Flow Rate FiO2 06/06/17 05:45 98.0 60 17 170/84 (112) 99 06/06/17 04:00 55 06/06/17 00:30 98.0 69 18 148/80 (102) 99 06/06/17 00:00 57 06/05/17 23:15 98.8 63 17 180/79 (112) 98 06/05/17 22:02 96 Nasal Cannula 2.00 06/05/17 21:05 60 06/05/17 17:11 94 21 06/05/17 16:00 97.8 70 18 161/70 (100) 94 06/05/17 13:23 Nasal Cannula 3.00 (Viktoria Tristan) Physical Exam General Appearance: Well Developed, No Acute Distress, Comfortable, Malnourished (Viktoria Tristan) Throat Throat Exam: Oral Mucosa [place] & Moist (Viktoria Tristan) Pulmonary Resp Exam: Breath Sounds Equal, Crackles, Rhonchi, Sputum, Decreased Bases (Viktoria Tristan) Cardiology CV Exam: Normal Sinus Rhythm, Good Perfusion (Viktoria Tristan) Gastrointestinal/Abdomen GI Exam: Soft, Non-Tender, Distended (Viktoria Tristan) Musculoskeletal MS Exam: Joints Intact, Normal Tone, Good Strength (Viktoria Tristan) Integumentary Skin Exam: Clear, Warm, Dry, Intact (Viktoria Tristan) Extremeties Extremities Exam: No Edema, Pedal Pulses Palpable (Viktoria Tristan) Neurologic Neuro Exam: Alert, Awake, Oriented, Speech Clear, Moving All Extremities (Viktoria Tristan) Psychiatric Psych Exam: Appropriate Responses (Viktoria Tristan) Assessment/Plan Discussed Condition With: Patient Assessment Summary: Anemia of CKD, Hypertension, End Stage Renal Disease Problem List: (1) End stage renal disease on dialysis ICD Codes: N18.6 - End stage renal disease; Z99.2 - Dependence on renal dialysis Status: Chronic Plan: Continue HD support TTS. She has outpatient arrangements for after discharge. AVF is patent, protect left upper extremity Avoid IVF administration High protein, low phosphorus diet ordered Obtain intermittent renal profile. On calcium acetate for metabolic bone disorder Hemodialysis yesterday with UF of 2.5 liters. (2) Chest pain ICD Codes: R07.9 - Chest pain, unspecified Status: Acute Plan: Mild elevation of troponin in the setting of renal failure No reports of chest pain currently (3) Pneumonia ICD Codes: J18.9 - Pneumonia, unspecified organism Plan: On cefepime Serial imaging reviewed. Continue Oxygen, nebulizers, IS, pulmonary toilet Bronchoscopy done on 05/31. A growth seen in the bronchus, biopsy taken. Oncology is also following given history of lung cancer. She needs to followup with radiation oncology. Her prognosis is guarded to poor. (4) Anemia ICD Codes: D64.9 - Anemia, unspecified Status: Acute Plan: Epogen with dialysis (Viktoria Tristan) Problem List: (1) End stage renal disease on dialysis ICD Codes: N18.6 - End stage renal disease; Z99.2 - Dependence on renal dialysis Status: Chronic Plan: Continue HD support TTS. She has outpatient arrangements for after discharge. AVF is patent, protect left upper extremity Avoid IVF administration High protein, low phosphorus diet ordered Obtain intermittent renal profile. On calcium acetate for metabolic bone disorder Hemodialysis yesterday with UF of 2.5 liters. Patient seen and examined, agree with above. Continue HD as schedule. (2) Chest pain ICD Codes: R07.9 - Chest pain, unspecified Status: Acute Plan: Mild elevation of troponin in the setting of renal failure No reports of chest pain currently (3) Pneumonia ICD Codes: J18.9 - Pneumonia, unspecified organism Plan: On cefepime Serial imaging reviewed. Continue Oxygen, nebulizers, IS, pulmonary toilet Bronchoscopy done on 05/31. A growth seen in the bronchus, biopsy taken. Oncology is also following given history of lung cancer. She needs to followup with radiation oncology. Her prognosis is guarded to poor. (4) Anemia ICD Codes: D64.9 - Anemia, unspecified Status: Acute Plan: Epogen with dialysis (Jose Sanford MD) Problem Qualifiers (1) Chest pain: Qualified Codes: R07.9 - Chest pain, unspecified Viktoria Tristan Jun 06, 2017 09:46 Jose Sanford MD Jun 06, 2017 14:46
[2017-06-06] MEDS ORDERED: RESP: ALBUTEROL 2.5 MG/IPRATROPIUM 0.5 MG NEB (PRN) NEB (10:00)
--- NOTE | 2017-06-06 10:01 | HHI.PR ---
Subjective Remarks Patient is sitting in bed in NAD. Afebrile. Objective Vital Signs Vital Signs Date Time Temp Pulse Resp B/P (MAP) Pulse Ox O2 Delivery O2 Flow Rate FiO2 06/06/17 05:45 98.0 60 17 170/84 (112) 99 06/06/17 04:00 55 06/06/17 00:30 98.0 69 18 148/80 (102) 99 06/06/17 00:00 57 06/05/17 23:15 98.8 63 17 180/79 (112) 98 06/05/17 22:02 96 Nasal Cannula 2.00 06/05/17 21:05 60 06/05/17 17:11 94 21 06/05/17 16:00 97.8 70 18 161/70 (100) 94 06/05/17 13:23 Nasal Cannula 3.00 I/O 06/05/17 06/05/17 06/05/17 06/06/17 06/06/17 06/06/17 07:00 15:00 23:00 07:00 15:00 23:00 Intake Total 400 ml 650 ml Output Total 2500 ml Balance -2500 ml 400 ml 650 ml Intake Oral 400 ml 650 ml Hemodialysis 2500 ml # Voids 4 1 3 # Bowel Movements 1 0 Other Results Last Impressions Chest X-Ray 06/06/17 0600 Signed Impressions: Service Date/Time: Tuesday, June 06, 2017 04:02 - CONCLUSION: Unchanged bilateral upper lobe consolidations and cardiomegaly. Shashi Olson Jr., MD Abdomen X-Ray 05/30/17 0953 Signed Impressions: Service Date/Time: Tuesday, May 30, 2017 10:38 - CONCLUSION: No free air. Dillan Mauricio MD FACR Chest CT 05/26/17 0000 Signed Impressions: Service Date/Time: Friday, May 26, 2017 20:15 - CONCLUSION: 1. Improved bilateral pleural effusions since May 17. 2. Multifocal dense consolidation in the lungs with numerous air bronchograms as above, left greater than right. 3. Compression deformities in the lower thoracic spine status post kyphoplasty. Sebastien Hastings MD Objective Remarks GENERAL: Patient is 82 yo sitting in bed in NAD SKIN: Warm and dry. HEAD: Normocephalic. EYES: No scleral icterus. No injection or drainage. NECK: Supple, trachea midline. No JVD or lymphadenopathy. CARDIOVASCULAR: Regular rate and rhythm without murmurs, gallops, or rubs. RESPIRATORY: Breath sounds equal bilaterally. No accessory muscle use. GASTROINTESTINAL: Abdomen soft, non-tender, nondistended. MUSCULOSKELETAL: No cyanosis, or edema. Neuro: Awake and alert A/P Assessment and Plan 1)Resp Insuff 2)Pneumonia 3)Lung ca-NSCLC 4)ESRD 5)Anemia Plan Continue with oxygen keep sats >92% Bronchodilators CXR today -unchanged b/l upper lobe consolidation On [id number] BID Monitor renal function, s/p HD 06/05 Oncology is following- signed off Continue abx ( Cefepime) monitor for signs of infections ( Fever, WBC) s/p bronch on 06/01- cxs negative GI/DVT prophylaxis- per primary team Continue treatment plan Bernarda Mckinney MD Jun 06, 2017 10:01
[2017-06-06] MEDS ORDERED: RESP: ALBUTEROL 2.5 MG/IPRATROPIUM 0.5 MG NEB (SCH) INH (12:00)
[2017-06-06] MEDS ORDERED: ZOFR4TAB3 SL (12:52)
[2017-06-06] MEDS: METOCLOPRAMIDE HCL 10 MG/2 ML VIAL IV PUSH PRN (12:55)
[2017-06-06] MEDS: MULTIVITAMINS/MINERALS THERAPEUTIC TAB PO SCH (12:55)
== END 2017-06-06 14:16 | disposition home health service (06) | DRG 193 ==
LOC: NEPE 09:44 → NEDA 12:43 → OBSVTOIN 15:29 → HCIS 18:50 → HCIN 05-31 16:30 → N05A 06-03 18:44
PROVIDERS: ADMIT Hospitalist; ATTEND Hospitalist
PROC: 3E0F7GC Introduction of Other Therapeutic Substance into Respiratory Tract, Via Natural or Artificial Opening (ICD-10-PCS; principal; 2017-05-25)
PROC: 5A1D70Z Performance of Urinary Filtration, Intermittent, Less than 6 Hours Per Day (ICD-10-PCS; 2017-05-25)
PROC: 0BB58ZX Excision of Right Middle Lobe Bronchus, Via Natural or Artificial Opening Endoscopic, Diagnostic (ICD-10-PCS; 2017-06-01)
PROC: 0BD58ZX Extraction of Right Middle Lobe Bronchus, Via Natural or Artificial Opening Endoscopic, Diagnostic (ICD-10-PCS; 2017-06-01)
PROC: 0BDC8ZX Extraction of Right Upper Lung Lobe, Via Natural or Artificial Opening Endoscopic, Diagnostic (ICD-10-PCS; 2017-06-01)
DX: J18.9 Pneumonia, unspecified organism (principal); N18.6 End stage renal disease; I13.2 Hypertensive heart and chronic kidney disease with heart failure and with stage 5 chronic kidney disease, or end stage renal disease; E88.89 Other specified metabolic disorders; J44.0 Chronic obstructive pulmonary disease with (acute) lower respiratory infection; C34.90 Malignant neoplasm of unspecified part of unspecified bronchus or lung; K56.7 Ileus, unspecified; J44.1 Chronic obstructive pulmonary disease with (acute) exacerbation; R04.2 Hemoptysis; E11.22 Type 2 diabetes mellitus with diabetic chronic kidney disease; I50.9 Heart failure, unspecified; R13.10 Dysphagia, unspecified; D63.1 Anemia in chronic kidney disease; Z99.81 Dependence on supplemental oxygen; E78.5 Hyperlipidemia, unspecified; E03.9 Hypothyroidism, unspecified; M19.90 Unspecified osteoarthritis, unspecified site; K21.9 Gastro-esophageal reflux disease without esophagitis; K44.9 Diaphragmatic hernia without obstruction or gangrene; E78.1 Pure hyperglyceridemia; K59.09 Other constipation; F32.9 Major depressive disorder, single episode, unspecified; Z66 Do not resuscitate; R74.8 Abnormal levels of other serum enzymes; Z91.041 Radiographic dye allergy status; Z99.2 Dependence on renal dialysis; Z92.3 Personal history of irradiation; Z80.3 Family history of malignant neoplasm of breast; Z80.1 Family history of malignant neoplasm of trachea, bronchus and lung; Z87.891 Personal history of nicotine dependence; Z79.01 Long term (current) use of anticoagulants; H54.8 Legal blindness, as defined in USA; T17.990A Other foreign object in respiratory tract, part unspecified in causing asphyxiation, initial encounter; Z98.51 Tubal ligation status
CPT/HCPCS: 31623; 71045; 71046; 71250; 74019; 80048; 80053; 80202; 81001; 82550; 83036; 83605; 83690; 83735; 84100; 84439; 84443; 84484; 85025; 85610; 85730; 87015; 87040; 87070; 87071; 87086; 87102; 87116; 87205; 87206; 88112; 88305; 90935; 93005; 93306; 94150; 94640; 94664; 96365; 96374; 96375; J0360; J0692; J1644; J2270; J2405; J2765; J2920; J3010; J3370; J7030; J7050; J7512; Q4081

== ENCOUNTER 2017-06-07 05:57 | Inpatient (IN) | payer OTHER, MEDICARE ==
[2017-06-07] VITALS (8 sets, daily range): BP systolic 121–218; BP diastolic 75–124; PULSE 61–77; RESP 16–26; TEMP 97.2–98.3; O2SAT 95–100
[~2017-06-07] VITALS: Ht 152.4 cm; Wt 50.8 kg
[~2017-06-07 05:57] MED LIST changes: -ATOR10TA15 PO; +ATOR20TA15 PO; -FENO54TA PO; -FERR325T PO; -MORP1TAB24 PO; +ZOFR4TAB3 SL
--- NOTE | 2017-06-07 06:26 | PD ---
HPI Chief Complaint: Abdominal pain Time Seen by Provider: 06:01 Travel History International Travel<30 days: No Contact w/Intl Traveler<30days: No Traveled to known affect area: No History of Present Illness HPI 82-year-old female was brought in by EMS from home for altered mental status and abdominal pain. Patient's states that patient has been confused all night. Patient was moaning groaning complains of abdominal pain all night. No reported fever at home. No reported vomiting diarrhea at home. Patient was admitted to [facility] May 25 and discharged June 05 for diagnosis of pneumonia, end-stage renal disease on dialysis, COPD exacerbation, accelerated hypertension, history of lung cancer, fluid overload, chest pain. PFSH Past Medical History Hx Anticoagulant Therapy: Yes Arthritis: Yes Asthma: No Blood Disorders: No Anxiety: No Depression: No Heart Rhythm Problems: No Cancer: Yes (lung) Cardiovascular Problems: Yes High Cholesterol: Yes Chemotherapy: No Chest Pain: Yes Congestive Heart Failure: Yes COPD: Yes Diabetes: No Dialysis: Yes (Wed) Diminished Hearing: No Diverticulitis: Yes Endocrine: Yes Gastrointestinal Disorders: Yes (ACID REFLUX) GERD: Yes Genitourinary: Yes Hepatitis: No Hiatal Hernia: Yes Hypertension: Yes Immune Disorder: No Musculoskeletal: Yes Neurologic: No Psychiatric: No Reproductive: No Respiratory: Yes Immunizations Current: Yes Radiation Therapy: Yes Renal Failure: Yes Sleep Apnea: No Thyroid Disease: Yes Triglycerides - High: Yes : 5 Para: 5 Miscarriage: 0 : 0 Tubal Ligation: Yes Past Surgical History Abdominal Surgery: Yes (gallbladder removal, colon resection) AICD: No Appendectomy: Yes Arteriovenous Shunt: Yes Body Medical Devices: LEFT SIDE FISTULA Cholecystectomy: Yes (JAN 2016 ) Joint Replacement: No Pacemaker: No Thoracic Surgery: Yes (lt fistula ) Other Surgery: Yes (L WRIST ) Social History Alcohol Use: No Tobacco Use: No Substance Use: No Allergies-Medications (Allergen,Severity, Reaction): Coded Allergies: diatrizoate meglumine (Verified Allergy, Severe, Hives, 05/25/17) gadobenic acid (Verified Allergy, Severe, Hives, 05/25/17) gadodiamide (Verified Allergy, Severe, Hives, 05/25/17) gadoteridol (Verified Allergy, Severe, Hives, 05/25/17) iodixanol (Verified Allergy, Severe, Hives, 05/25/17) iohexol (Verified Allergy, Severe, Hives, 05/25/17) metronidazole (Verified Allergy, Severe, DIFFICULTY BREATHING, EXTREME NAUSEA, VOMITING, 05/25/17) cholestyramine (Verified Adverse Reaction, Intermediate, STOMACH UPSET, 12/02) codeine (Verified Adverse Reaction, Intermediate, UPSET STOMACH, 05/25/17) colesevelam (Verified Adverse Reaction, Intermediate, STOMACH UPSET, ) gemfibrozil (Verified Adverse Reaction, Intermediate, STOMACH UPSET, ) levofloxacin (Verified Adverse Reaction, Intermediate, Nausea/Vomiting, 12/02) patient said it gave her extreme anxiety also. lorazepam (Verified Adverse Reaction, Intermediate, STOMACH UPSET, 05/25/17 ) lovastatin (Verified Adverse Reaction, Intermediate, STOMACH UPSET, ) propoxyphene (Verified Adverse Reaction, Intermediate, UPSET STOMACH, 05/25) Reported Meds & Prescriptions Reported Meds & Active Scripts Active Zofran Odt (Ondansetron Odt) 4 Mg Tab 4 Mg SL Q6HR PRN Atorvastatin (Atorvastatin Calcium) 20 Mg Tab 20 Mg PO HS Oxygen tank (Oxygen) 1 Ea Tank 2 Liter CLEMENTE.CANManagerComplete CONTINUOUS Oxygen Concentrator Portable Gaseous 2 L/min via Nasal Cannula Continuous For 99 months Reported Nifedipine ER (Nifedipine) 90 Mg Tab 90 Mg PO DAILY Omeprazole 40 Mg Cap 40 Mg PO DAILY Sucralfate 1 Gm Tab 1 Gm PO TID on empty stomach Losartan (Losartan Potassium) 100 Mg Tab 100 Mg PO DAILY Levothyroxine (Levothyroxine Sodium) 100 Mcg Tab 100 Mcg PO DAILY Flonase Nasal [place] (Fluticasone Nasal [place]) 50 Mcg/Act [place] 2 [place] EACH NARE DAILY PRN Centrum Silver Adult 50+ (Multiple Vitamins W/ Minerals) 1 Tab Tab 1 Tab PO AC LUNCH Senna S (Sennosides-Docusate Sodium) 8.6-50 Mg Tab 4 Tab PO HS Lutein 20 Mg Cap 20 Mg PO DAILY Fluoxetine (Fluoxetine HCl) 20 Mg Tab 20 Mg PO HS Catapres (Clonidine) 0.2 Mg Tab 0.2 Mg PO Q8HR Calcitriol 0.25 Mcg Cap 0.25 Mcg PO DAILY Aspirin Adult Low Strength (Aspirin) 81 Mg Tabdr 81 Mg PO DAILY Ventolin Hfa 18 GM Inh (Albuterol Sulfate) 90 Mcg/Act Aer 2 Puff INH Q4H PRN Metoprolol Succinate ER 24 HR (Metoprolol Succinate) 25 Mg Tab 25 Mg PO DAILY Review of Systems General / Constitutional: No: Fever Eyes: No: Visual changes HENT: No: Headaches Cardiovascular: No: Chest Pain or Discomfort Respiratory: No: Shortness of Breath Gastrointestinal: Positive: Abdominal Pain Genitourinary: No: Dysuria Musculoskeletal: No: Pain Skin: No Rash Neurologic: No: Weakness Psychiatric: No: Depression Endocrine: No: Polydipsia Hematologic/Lymphatic: No: Easy Bruising Physical Exam Narrative GENERAL: Well-nourished, well-developed patient. SKIN: Focused skin assessment warm/dry. HEAD: Normocephalic. EYES: No scleral icterus. No injection or drainage. Pupils 2 mm equal reactive. NECK: Supple, trachea midline. No JVD or lymphadenopathy. CARDIOVASCULAR: Regular rate and rhythm without murmurs, gallops, or rubs. RESPIRATORY: Breath sounds equal bilaterally. No accessory muscle use. Mild diffuse rhonchi bilaterally. GASTROINTESTINAL: Abdomen soft, mildly distended. Hypoactive bowel sounds. Moderate diffuse tenderness over the abdomen. No rebound tenderness. No mass. MUSCULOSKELETAL: No cyanosis, or edema. BACK: Nontender without obvious deformity. No CVA tenderness. Neurologic exam: Patient lying in bed with close eyes. Does not open eyes on command. Patient continued to moan and groan. Patient can move all extremity well. No obvious focal neurological deficit. Data Data Last Documented VS Vital Signs Date Time Temp Pulse Resp B/P (MAP) Pulse Ox O2 Delivery O2 Flow Rate FiO2 06/07/17 07:40 70 20 100 Nasal Cannula 2.00 06/07/17 07:38 98.3 211/84 (126) Orders Orders Complete Blood Count With Diff (06/07/17 06:10) Comprehensive Metabolic Panel (06/07/17 06:10) Creatine Kinase (Cpk) (06/07/17 06:10) Troponin I (06/07/17 06:10) Prothrombin Time / Inr (Pt) (06/07/17 06:10) Act Partial Throm Time (Ptt) (06/07/17 06:10) Blood Culture (06/07/17 06:10) Lipase (06/07/17 06:10) Urinalysis - C+S If Indicated (06/07/17 06:10) Magnesium (Mg) (06/07/17 06:10) Thyroid Stimulating Hormone (06/07/17 06:10) Phosphorus (Po4) (06/07/17 06:10) Chest, Single Ap (06/07/17 06:10) Ct Brain W/O Iv Contrast(Rout) (06/07/17 06:10) Iv Access Insert/Monitor (06/07/17 06:10) Ecg Monitoring (06/07/17 06:10) Oximetry (06/07/17 06:10) Urinary Catheter Insert/Apply (06/07/17 06:10) Ct Abd/Pel W/O Iv Contrast (06/07/17 06:10) Morphine Inj (Morphine Inj) (06/07/17 07:45) Ondansetron Inj (Zofran Inj) (06/07/17 08:30) Morphine Inj (Morphine Inj) (06/07/17 08:30) Clonidine (Catapres) (06/07/17 09:30) Hydromorphone Pf Inj (Dilaudid Pf Inj) (06/07/17 09:30) Ceftriaxone Inj (Rocephin Inj) (06/07/17 10:15) Azithromycin Inj (Zithromax Inj) (06/07/17 10:15) Admit Order (Ed Use Only) (06/07/17 ) Customer Consultant / Telemetry IMMANUEL.Q8H (06/07/17 10:12) Vital Signs (Adult) Q4H (06/07/17 10:12) Activity Bed Rest (06/07/17 10:12) Admit To Inpatient (06/07/17 ) Vital Signs (Adult) Q4H (06/07/17 10:12) Activity Oob With Assistance (06/07/17 10:12) Sodium Chloride 0.9% Flush (Ns Flush) (06/07/17 10:15) Sodium Chloride 0.9% Flush (Ns Flush) (06/07/17 21:00) Acetaminophen (Tylenol) (06/07/17 10:15) Ondansetron Inj (Zofran Inj) (06/07/17 10:15) Heparin Inj (Heparin Inj) (06/07/17 11:00) Naloxone Inj (Narcan Inj) (06/07/17 10:15) Docusate Sodium-Senna (Irma-Colace) (06/07/17 21:00) Magnesium Hydroxide Liq (Milk Of Magnesi (06/07/17 10:15) Sennosides (Senokot) (06/07/17 10:15) Bisacodyl Supp (Dulcolax Supp) (06/07/17 10:15) Lactulose Liq (Lactulose Liq) (06/07/17 10:15) Inpatient Certification (06/07/17 ) Labs Laboratory Tests Test 06/07/17 06:45 White Blood Count 11.2 TH/MM3 Red Blood Count 3.84 MIL/MM3 Hemoglobin 12.1 GM/DL Hematocrit 37.8 % Mean Corpuscular Volume 98.5 FL Mean Corpuscular Hemoglobin 31.6 PG Mean Corpuscular Hemoglobin Concent 32.1 % Red Cell Distribution Width 17.5 % Platelet Count 185 TH/MM3 Mean Platelet Volume 8.6 FL Neutrophils (%) (Auto) 83.6 % Lymphocytes (%) (Auto) 6.5 % Monocytes (%) (Auto) 8.1 % Eosinophils (%) (Auto) 1.0 % Basophils (%) (Auto) 0.8 % Neutrophils # (Auto) 9.4 TH/MM3 Lymphocytes # (Auto) 0.7 TH/MM3 Monocytes # (Auto) 0.9 TH/MM3 Eosinophils # (Auto) 0.1 TH/MM3 Basophils # (Auto) 0.1 TH/MM3 CBC Comment DIFF FINAL Differential Comment Prothrombin Time 10.7 SEC Prothromb Time International Ratio 1.1 RATIO Activated Partial Thromboplast Time 23.4 SEC Urine Color YELLOW Urine Turbidity CLEAR Urine pH 8.0 Urine Specific [place] 1.008 Urine Protein 100 mg/dL Urine Glucose (UA) NEG mg/dL Urine Ketones NEG mg/dL Urine Occult Blood SMALL Urine Nitrite NEG Urine Bilirubin NEG Urine Urobilinogen LESS THAN 2.0 MG/DL Urine Leukocyte Esterase NEG Urine RBC 7 /hpf Urine WBC 3 /hpf Urine Squamous Epithelial Cells <1 /hpf Urine Transitional Epithelial Cells <1 /hpf Microscopic Urinalysis Comment CULT NOT INDICATED Blood Urea Nitrogen 32 MG/DL Creatinine 3.06 MG/DL Random Glucose 84 MG/DL Total Protein 6.1 GM/DL Albumin 2.5 GM/DL Calcium Level 9.2 MG/DL Phosphorus Level 1.1 MG/DL Magnesium Level 2.2 MG/DL Alkaline Phosphatase 81 U/L Aspartate Amino Transf (AST/SGOT) 19 U/L Alanine Aminotransferase (ALT/SGPT) 16 U/L Total Bilirubin 0.5 MG/DL Sodium Level 136 MEQ/L Potassium Level 4.1 MEQ/L Chloride Level 98 MEQ/L Carbon Dioxide Level 26.6 MEQ/L Anion Gap 11 MEQ/L Estimat Glomerular Filtration Rate 15 ML/MIN Total Creatine Kinase 28 U/L Troponin I 0.04 NG/ML Lipase 192 U/L Thyroid Stimulating Hormone 3rd Gen 6.300 uIU/ML MDM Medical Decision Making Medical Screen Exam Complete: Yes Emergency Medical Condition: Yes Differential Diagnosis Differential diagnosis including gastritis, PUD, pancreatitis, cholecystitis, colitis, UTI, pyelonephritis, nephrolithiasis, TIA, CVA, pneumonia, UTI, sepsis. Narrative Course 82-year-old female with altered mental status abdominal pain. Troy Dela Cruz MD Jun 07, 2017 06:26
--- NOTE | 2017-06-07 06:46 | RADRPT ---
EXAM DATE/TIME: 06/07/2017 06:23 [facility] COMPARISON: CT THORAX W/O CONTRAST, May 26, 2017, 20:15. INDICATIONS : Short of breath. MEDICAL HISTORY : Hypertension. Chronic obstructive pulmonary disease. Cardiovascular disease. Carcinoma, lung. Anemia. SURGICAL HISTORY : Tubal ligation. AV shunt. ENCOUNTER: Initial ACUITY: 1 day PAIN SCORE: 0/10 LOCATION: Bilateral chest FINDINGS: A single view of the chest demonstrates relatively stable multifocal consolidation involving the righ t upper lobe, left upper lobe and left lower lobe. Cardiomegaly. No significant effusion. No pneumoth orax. CONCLUSION: 1. Multifocal lung consolidation similar to June 06. Sebastien Hastings MD on June 07, 2017 at 6:44 Board Certified Radiologist. This report was verified electronically.
[2017-06-07 07:13] LABS: AUTOMATED NEUTROPHIL # 9.4 TH/MM3 (1.8-7.7); BASOPHIL # 0.1 TH/MM3 (0-0.2); BASOPHIL % 0.8 % (0.0-2.0); BILIRUBIN, URINE NEG (NEG); BLOOD, URINE SMALL (NEG); EOSINOPHIL # 0.1 TH/MM3 (0-0.4); GLUCOSE,URINE NEG (NEG); HEMATOCRIT 37.8 % (35.0-46.0); HEMOGLOBIN 12.1 GM/DL (11.6-15.3); KETONE, URINE NEG (NEG); LYMPH % 6.5 % (9.0-44.0); LYMPHOCYTE # 0.7 TH/MM3 (1.0-4.8); MEAN CELL VOLUME 98.5 FL (80.0-100.0); MEAN CORPUSCULAR HEMOGLOBIN 31.6 PG (27.0-34.0); MEAN CORPUSCULAR HGB CONC 32.1 % (32.0-36.0); MEAN PLATELET VOLUME 8.6 FL (7.0-11.0); MONO % 8.1 % (0.0-8.0); MONOCYTE # 0.9 TH/MM3 (0-0.9); NEUT % 83.6 % (16.0-70.0); NITRITE,URINE NEG (NEG); PLATELET COUNT 185 TH/MM3 (150-450); RED BLOOD COUNT 3.84 MIL/MM3 (4.00-5.30); RED CELL DISTRIBUTION WIDTH 17.5 % (11.6-17.2); SQUAMOUS EPITHELIAL CELL URINE <1 /hpf (0-5); TRANSITIONAL EPI CELLS, URINE <1 /hpf; URINE COLOR YELLOW (YELLW/STRAW); URINE LEUKOCYTE ESTERASE NEG (NEG); WHITE BLOOD COUNT 11.2 TH/MM3 (4.0-11.0)
[2017-06-07 07:32] LABS: ALBUMIN 2.5 GM/DL (3.4-5.0); AST (GOT) 19 U/L (15-37); BICARBONATE 26.6 MEQ/L (21.0-32.0); BLOOD UREA NITROGEN 32 MG/DL (7-18); CALCIUM 9.2 MG/DL (8.5-10.1); CHLORIDE 98 MEQ/L (98-107); CREATININE 3.06 MG/DL (0.50-1.00); GLOMERULAR FILTRATION RATE 15 ML/MIN (>89); GLUCOSE,RANDOM 84 MG/DL (74-106); MAGNESIUM 2.2 MG/DL (1.5-2.5); SODIUM (NA) 136 MEQ/L (136-145)
[2017-06-07 07:34] LABS: INTERNATIONAL NORMALIZED RATIO 1.1 RATIO; PROTHROMBIN TIME - PATIENT 10.7 SEC (9.8-11.6)
[2017-06-07 07:41] LABS: ALKALINE PHOSPHATASE 81 U/L (45-117); ALT (GPT) 16 U/L (10-53); PHOSPHORUS 1.1 MG/DL (2.5-4.9); TOTAL BILIRUBIN ADULT 0.5 MG/DL (0.2-1.0); TOTAL PROTEIN 6.1 GM/DL (6.4-8.2); TROPONIN I 0.04 NG/ML (0.02-0.05)
[2017-06-07] MEDS ORDERED: MORPHINE SULFATE 8 MG/ML INJ IV PUSH ONE (07:45)
[2017-06-07] MEDS ORDERED: MORPHINE SULFATE 4 MG/ML INJ IV PUSH ONE ×2 (08:30→17:45)
[2017-06-07] MEDS ORDERED: ONDANSETRON HCL 4 MG/2 ML VIAL IV PUSH ONE (08:30)
[2017-06-07] MEDS ORDERED: cloNIDine HCL 0.1 MG TAB PO ONE (09:30)
[2017-06-07] MEDS ORDERED: HYDROmorphone HCL PF 2 MG/ML VIAL IV PUSH ONE (09:30)
--- NOTE | 2017-06-07 09:52 | RADRPT ---
EXAM DATE/TIME: 06/07/2017 09:38 [facility] COMPARISON: No previous studies available for comparison. INDICATIONS : Altered mental status RADIATION DOSE: 42.03 CTDIvol (mGy) MEDICAL HISTORY : Cardiovascular disease. Diverticulitis. Chronic obstructive pulmonary disease.Hypertension, lung canc er, Renal failure SURGICAL HISTORY : Appendectomy. ENCOUNTER: Initial ACUITY: 1 day PAIN SCALE: 4/10 LOCATION: cranial TECHNIQUE: Multiple contiguous axial images were obtained of the head. Using automated exposure control and adj ustment of the mA and/or kV according to patient size, radiation dose was kept as low as reasonably a chievable to obtain optimal diagnostic quality images. DICOM format image data is available electro nically for review and comparison. FINDINGS: The study is degraded by mild motion artifact. CEREBRUM: The ventricles are normal for age. No evidence of midline shift, mass lesion, hemorrhage or acute in farction. No extra-axial fluid collections are seen. POSTERIOR FOSSA: The cerebellum and brainstem are intact. The 4th ventricle is midline. The cerebellopontine angle i s unremarkable. EXTRACRANIAL: The visualized portion of the orbits is intact. SKULL: The calvaria is intact. No evidence of skull fracture. CONCLUSION: 1. No acute hemorrhage or mass effect. 2. Suboptimal study secondary to motion artifact. Hussain Zamorano MD on June 07, 2017 at 9:48 Board Certified Radiologist. This report was verified electronically.
--- NOTE | 2017-06-07 10:03 | RADRPT ---
EXAM DATE/TIME: 06/07/2017 09:41 [facility] COMPARISON: CT ABDOMEN & PELVIS W/O CONTRAST, February 18, 2016, 4:01. INDICATIONS : Abdominal pain ORAL CONTRAST: No oral contrast ingested. RADIATION DOSE: 6.69 CTDIvol (mGy) MEDICAL HISTORY : Diverticulitis. Chronic obstructive pulmonary disease. Gastroesophageal reflux disease.Renal failure, lung cancer, SURGICAL HISTORY : Appendectomy. Cholecystectomy. ENCOUNTER: Initial ACUITY: 1 day PAIN SCALE: 6/10 LOCATION: Abdomen TECHNIQUE: Volumetric scanning of the abdomen and pelvis was performed. Using automated exposure control and ad justment of the mA and/or kV according to patient size, radiation dose was kept as low as reasonably achievable to obtain optimal diagnostic quality images. DICOM format image data is available electro nically for review and comparison. FINDINGS: LOWER LUNGS: Minimal pleural fluid is present bilaterally. LIVER: Homogeneous density without lesion. There is no dilation of the biliary tree. The patient is status post cholecystectomy. SPLEEN: Normal size without lesion. PANCREAS: Within normal limits. KIDNEYS: Normal in size and shape. There is no mass, stone, or hydronephrosis. There is stable mild vascular calcifications again noted. ADRENAL GLANDS: Within normal limits. VASCULAR: There is no aortic aneurysm. BOWEL/MESENTERY: There are multiple loops of borderline dilated air-containing small bowel with multiple air-fluid lev els greatest in the anterior and left side of the abdomen. Gas and stool are noted segmentally in the colon with a moderate to large amount of stool in the distal colon. There is no free air or fluid. ABDOMINAL WALL: Within normal limits. RETROPERITONEUM: There is no lymphadenopathy. BLADDER: A [place] catheter is present and the balloon appears located just below the bladder base. Bladder has a moderate amount of urine present. REPRODUCTIVE: Within normal limits. INGUINAL: There is no lymphadenopathy or hernia. MUSCULOSKELETAL: Status post multilevel kyphoplasty with postsurgical changes in the lower thoracic and lumbar spine. CONCLUSION: 1. Livingston catheter in place with the balloon just below the bladder base. There is a moderate amount o f urine in the bladder which is otherwise unremarkable. This could be advanced. 2. Nonspecific bowel gas pattern with moderate to large amount of stool in distal colon which could i ndicate constipation. Findings may represent ileus and/or gastroenteritis. 3. Small bilateral pleural effusions. Hussain Zamorano MD on June 07, 2017 at 9:57 Board Certified Radiologist. This report was verified electronically.
[2017-06-07] MEDS ORDERED: cefTRIAXone INJ 1,000 MG in SODIUM CHLORIDE 0.9% INJ 100 ML IV ONE (10:15)
[2017-06-07] MEDS ORDERED: BISACODYL 10 MG SUPP RECTAL PRN (10:15)
[2017-06-07] MEDS ORDERED: ACETAMINOPHEN 325 MG TAB PO PRN (10:15)
[2017-06-07] MEDS ORDERED: ONDANSETRON HCL 4 MG/2 ML VIAL IVP PRN (10:15)
[2017-06-07] MEDS ORDERED: AZITHROMYCIN INJ 500 MG in SODIUM CHLOR 0.9% 250 ML INJ 250 ML IV ONE (10:15)
[2017-06-07] MEDS ORDERED: cloNIDine HCL 0.1 MG TAB PO PRN (10:15)
[2017-06-07] MEDS ORDERED: NALOXONE HCL 0.4 MG/ML AMP IV PUSH PRN (10:15)
[2017-06-07] MEDS ORDERED: SODIUM CHLORIDE 0.9% FLUSH 10 ML FLUSH IV FLUSH PRN (10:15)
[2017-06-07] MEDS ORDERED: LACTULOSE SYRUP 20 GM/30 ML CUP PO PRN (10:15)
[2017-06-07] MEDS ORDERED: SENNOSIDES 8.6 MG TAB PO PRN (10:15)
[2017-06-07] MEDS ORDERED: MAGNESIUM HYDROXIDE SUSP 30 ML CUP PO PRN (10:15)
--- NOTE | 2017-06-07 10:28 | PD ---
Data Data Last Documented VS Vital Signs Date Time Temp Pulse Resp B/P (MAP) Pulse Ox O2 Delivery O2 Flow Rate FiO2 06/07/17 07:40 70 20 100 Nasal Cannula 2.00 06/07/17 07:38 98.3 211/84 (126) Orders Orders Electrocardiogram (06/07/17 06:10) Complete Blood Count With Diff (06/07/17 06:10) Comprehensive Metabolic Panel (06/07/17 06:10) Creatine Kinase (Cpk) (06/07/17 06:10) Troponin I (06/07/17 06:10) Prothrombin Time / Inr (Pt) (06/07/17 06:10) Act Partial Throm Time (Ptt) (06/07/17 06:10) Blood Culture (06/07/17 06:10) Lipase (06/07/17 06:10) Urinalysis - C+S If Indicated (06/07/17 06:10) Magnesium (Mg) (06/07/17 06:10) Thyroid Stimulating Hormone (06/07/17 06:10) Phosphorus (Po4) (06/07/17 06:10) Chest, Single Ap (06/07/17 06:10) Ct Brain W/O Iv Contrast(Rout) (06/07/17 06:10) Iv Access Insert/Monitor (06/07/17 06:10) Ecg Monitoring (06/07/17 06:10) Oximetry (06/07/17 06:10) Urinary Catheter Insert/Apply (06/07/17 06:10) Ct Abd/Pel W/O Iv Contrast (06/07/17 06:10) Morphine Inj (Morphine Inj) (06/07/17 07:45) Ondansetron Inj (Zofran Inj) (06/07/17 08:30) Morphine Inj (Morphine Inj) (06/07/17 08:30) Clonidine (Catapres) (06/07/17 09:30) Hydromorphone Pf Inj (Dilaudid Pf Inj) (06/07/17 09:30) Ceftriaxone Inj (Rocephin Inj) (06/07/17 10:15) Azithromycin Inj (Zithromax Inj) (06/07/17 10:15) Blood Culture (06/07/17 10:12) Admit Order (Ed Use Only) (06/07/17 ) Grease Press Helper / Telemetry [id number].[id number] (06/07/17 10:12) Vital Signs (Adult) Q4H (06/07/17 10:12) Activity Bed Rest (06/07/17 10:12) Admit To Inpatient (06/07/17 ) Vital Signs (Adult) Q4H (06/07/17 10:12) Activity Oob With Assistance (06/07/17 10:12) Diet Clear Liquid (06/07/17 Lunch) Sodium Chloride 0.9% Flush (Ns Flush) (06/07/17 10:15) Sodium Chloride 0.9% Flush (Ns Flush) (06/07/17 21:00) Acetaminophen (Tylenol) (06/07/17 10:15) Ondansetron Inj (Zofran Inj) (06/07/17 10:15) Heparin Inj (Heparin Inj) (06/07/17 10:15) Naloxone Inj (Narcan Inj) (06/07/17 10:15) Docusate Sodium-Senna (Irma-Colace) (06/07/17 21:00) Magnesium Hydroxide Liq (Milk Of Magnesi (06/07/17 10:15) Sennosides (Senokot) (06/07/17 10:15) Bisacodyl Supp (Dulcolax Supp) (06/07/17 10:15) Lactulose Liq (Lactulose Liq) (06/07/17 10:15) Inpatient Certification (06/07/17 ) Labs Laboratory Tests Test 06/07/17 06:45 White Blood Count 11.2 TH/MM3 Red Blood Count 3.84 MIL/MM3 Hemoglobin 12.1 GM/DL Hematocrit 37.8 % Mean Corpuscular Volume 98.5 FL Mean Corpuscular Hemoglobin 31.6 PG Mean Corpuscular Hemoglobin Concent 32.1 % Red Cell Distribution Width 17.5 % Platelet Count 185 TH/MM3 Mean Platelet Volume 8.6 FL Neutrophils (%) (Auto) 83.6 % Lymphocytes (%) (Auto) 6.5 % Monocytes (%) (Auto) 8.1 % Eosinophils (%) (Auto) 1.0 % Basophils (%) (Auto) 0.8 % Neutrophils # (Auto) 9.4 TH/MM3 Lymphocytes # (Auto) 0.7 TH/MM3 Monocytes # (Auto) 0.9 TH/MM3 Eosinophils # (Auto) 0.1 TH/MM3 Basophils # (Auto) 0.1 TH/MM3 CBC Comment DIFF FINAL Differential Comment Prothrombin Time 10.7 SEC Prothromb Time International Ratio 1.1 RATIO Activated Partial Thromboplast Time 23.4 SEC Urine Color YELLOW Urine Turbidity CLEAR Urine pH 8.0 Urine Specific [place] 1.008 Urine Protein 100 mg/dL Urine Glucose (UA) NEG mg/dL Urine Ketones NEG mg/dL Urine Occult Blood SMALL Urine Nitrite NEG Urine Bilirubin NEG Urine Urobilinogen LESS THAN 2.0 MG/DL Urine Leukocyte Esterase NEG Urine RBC 7 /hpf Urine WBC 3 /hpf Urine Squamous Epithelial Cells <1 /hpf Urine Transitional Epithelial Cells <1 /hpf Microscopic Urinalysis Comment CULT NOT INDICATED Blood Urea Nitrogen 32 MG/DL Creatinine 3.06 MG/DL Random Glucose 84 MG/DL Total Protein 6.1 GM/DL Albumin 2.5 GM/DL Calcium Level 9.2 MG/DL Phosphorus Level 1.1 MG/DL Magnesium Level 2.2 MG/DL Alkaline Phosphatase 81 U/L Aspartate Amino Transf (AST/SGOT) 19 U/L Alanine Aminotransferase (ALT/SGPT) 16 U/L Total Bilirubin 0.5 MG/DL Sodium Level 136 MEQ/L Potassium Level 4.1 MEQ/L Chloride Level 98 MEQ/L Carbon Dioxide Level 26.6 MEQ/L Anion Gap 11 MEQ/L Estimat Glomerular Filtration Rate 15 ML/MIN Total Creatine Kinase 28 U/L Troponin I 0.04 NG/ML Lipase 192 U/L Thyroid Stimulating Hormone 3rd Gen 6.300 uIU/ML [facility] Medical Record Reviewed: Yes Supervised Visit with YENNY: No Narrative Course CBC & BMP Diagram 06/07/17 06:45 Total Protein 6.1 L, Albumin 2.5 L, Calcium Level 9.2, Phosphorus Level 1.1 L, Magnesium Level 2.2, Alkaline Phosphatase 81, Aspartate Amino Transf (AST/SGOT) 19, Alanine Aminotransferase (ALT/SGPT) 16, Total Bilirubin 0.5 Lipase 192 TSH 6.3 UA: No UTI CXR: multifocal bilateral PNA CT abd/pel: constipation; possible Living[place] error CT head: no bleed/ICH though limited 2/2 pt motion Rocephin azithromycin started. Blood cultures drawn. Admission for pneumonia. Case discussed with nurse to reposition Livingston. Patient required 10 mg of morphine in 1 milligram of Dilaudid here for pain control. The patient's blood pressure was also high to 226/130 after 10 milligrams of morphine. Clonidine given 0.1mg. Case d/w Dr Craig. Admission to [facility]. Critical Care Narrative Aggregate critical care time was 35 minutes. Time to perform other separately billable procedures was not included in the critical care time. My time did not include minutes spent treating any other patients simultaneously or on activities that did not directly contribute to the patient's treatment. The services I provided to this patient were to treat and/or prevent clinically significant deterioration that could result in: Inadequate pain control, pain I provided critical care services requiring my management, as noted below: Chart data review, documentation time, medication orders and management, vital sign assessments/reviewing monitor data, ordering and reviewing lab tests, ordering and interpreting/reviewing x-rays and diagnostic studies, care of the patient and discussion of the patient with the admitting physicians. Diagnosis Primary Impression: End stage renal disease Additional Impressions: Pleural effusion PNA (pneumonia) Qualified Codes: J18.9 - Pneumonia, unspecified organism Intractable abdominal pain Admitting Information Admitting Physician Requests: Melvin Wolf MD Jun 07, 2017 10:28
[2017-06-07] MEDS: HEPARIN SODIUM - SQ 10,000 UNITS/ML VIAL SQ SCH (11:10)
--- NOTE | 2017-06-07 14:08 | PD.CONS ---
HPI History of Present Illness This is a 82 year old female with ESRD on HD who was brought by EMS for abd pain , AMS. GI is consulted for constipation. Pt is complaining of abd pain. Otherwise she is noncontributory. CT showed stool. Per EMR she sees Dr Duncan and had EGD, colonsocopy, capsule endoscopy in 2016, reported to be unremarkable. Poor historian. (Debra Lawson) PFSH Past Medical History ESRD on HD COPD HTN lung ca thyroid disorder OA CHF Past Surgical History Tubal ligation Cholecystectomy Colon resection Appendectomy Arteriovenous shunt with a left-sided fistula Left wrist surgery (Debra Lawson) Coded Allergies: diatrizoate meglumine (Verified Allergy, Severe, Hives, 05/25/17) gadobenic acid (Verified Allergy, Severe, Hives, 05/25/17) gadodiamide (Verified Allergy, Severe, Hives, 05/25/17) gadoteridol (Verified Allergy, Severe, Hives, 05/25/17) iodixanol (Verified Allergy, Severe, Hives, 05/25/17) iohexol (Verified Allergy, Severe, Hives, 05/25/17) metronidazole (Verified Allergy, Severe, DIFFICULTY BREATHING, EXTREME NAUSEA, VOMITING, 05/25/17) cholestyramine (Verified Adverse Reaction, Intermediate, STOMACH UPSET, 12/02) codeine (Verified Adverse Reaction, Intermediate, UPSET STOMACH, 05/25/17) colesevelam (Verified Adverse Reaction, Intermediate, STOMACH UPSET, ) gemfibrozil (Verified Adverse Reaction, Intermediate, STOMACH UPSET, ) levofloxacin (Verified Adverse Reaction, Intermediate, Nausea/Vomiting, 12/02) patient said it gave her extreme anxiety also. lorazepam (Verified Adverse Reaction, Intermediate, STOMACH UPSET, 05/25/17 ) lovastatin (Verified Adverse Reaction, Intermediate, STOMACH UPSET, ) propoxyphene (Verified Adverse Reaction, Intermediate, UPSET STOMACH, 05/25) Family History Last Impressions Head CT 06/07/17 0610 Signed Impressions: Service Date/Time: Wednesday, June 07, 2017 09:38 - CONCLUSION: 1. No acute hemorrhage or mass effect. 2. Suboptimal study secondary to motion artifact. Hussain Zamorano MD Chest X-Ray 06/07/17609 Signed Impressions: Service Date/Time: Wednesday, June 07, 2017 06:23 - CONCLUSION: 1. Multifocal lung consolidation similar to June 06. Sebastien Hastings MD Abdomen/Pelvis CT 06/07/17609 Signed Impressions: Service Date/Time: Wednesday, June 07, 2017 09:41 - CONCLUSION: 1. Livingston catheter in place with the balloon just below the bladder base. There is a moderate amount of urine in the bladder which is otherwise unremarkable. This could be advanced. 2. Nonspecific bowel gas pattern with moderate to large amount of stool in distal colon which could indicate constipation. Findings may represent ileus and/or gastroenteritis. 3. Small bilateral pleural effusions. Hussain Zamorano MD Social History no toxic habits, per EMR (Debra Lawson) Review of Systems noncontributory (Debra Lawson) GI Exam Vitals I&O Vital Signs Date Time Temp Pulse Resp B/P (MAP) Pulse Ox O2 Delivery O2 Flow Rate FiO2 06/07/17 13:00 66 19 150/80 (103) 99 Nasal Cannula 2.00 06/07/17 10:30 76 21 218/106 (143) 95 Nasal Cannula 2.00 06/07/17 07:40 70 20 100 Nasal Cannula 2.00 06/07/17 07:38 98.3 70 20 211/84 (126) 100 Nasal Cannula 2.00 06/07/17 06:50 96 06/07/17 06:09 61 26 218/124 (155) 98 Imaging Last Impressions Head CT 06/07/17609 Signed Impressions: Service Date/Time: Wednesday, June 07, 2017 09:38 - CONCLUSION: 1. No acute hemorrhage or mass effect. 2. Suboptimal study secondary to motion artifact. Hussain Zamorano MD Chest X-Ray 06/07/17609 Signed Impressions: Service Date/Time: Wednesday, June 07, 2017 06:23 - CONCLUSION: 1. Multifocal lung consolidation similar to June 06. Sebastien Hastings MD Abdomen/Pelvis CT 06/07/17609 Signed Impressions: Service Date/Time: Wednesday, June 07, 2017 09:41 - CONCLUSION: 1. Living[place] catheter in place with the balloon just below the bladder base. There is a moderate amount of urine in the bladder which is otherwise unremarkable. This could be advanced. 2. Nonspecific bowel gas pattern with moderate to large amount of stool in distal colon which could indicate constipation. Findings may represent ileus and/or gastroenteritis. 3. Small bilateral pleural effusions. Hussain Zamorano MD Laboratory Test 06/07/17 06:45 White Blood Count 11.2 TH/MM3 Red Blood Count 3.84 MIL/MM3 Hemoglobin 12.1 GM/DL Hematocrit 37.8 % Mean Corpuscular Volume 98.5 FL Mean Corpuscular Hemoglobin 31.6 PG Mean Corpuscular Hemoglobin Concent 32.1 % Red Cell Distribution Width 17.5 % Platelet Count 185 TH/MM3 Mean Platelet Volume 8.6 FL Neutrophils (%) (Auto) 83.6 % Lymphocytes (%) (Auto) 6.5 % Monocytes (%) (Auto) 8.1 % Eosinophils (%) (Auto) 1.0 % Basophils (%) (Auto) 0.8 % Neutrophils # (Auto) 9.4 TH/MM3 Lymphocytes # (Auto) 0.7 TH/MM3 Monocytes # (Auto) 0.9 TH/MM3 Eosinophils # (Auto) 0.1 TH/MM3 Basophils # (Auto) 0.1 TH/MM3 CBC Comment DIFF FINAL Differential Comment Prothrombin Time 10.7 SEC Prothromb Time International Ratio 1.1 RATIO Activated Partial Thromboplast Time 23.4 SEC Urine Color YELLOW Urine Turbidity CLEAR Urine pH 8.0 Urine Specific [place] 1.008 Urine Protein 100 mg/dL Urine Glucose (UA) NEG mg/dL Urine Ketones NEG mg/dL Urine Occult Blood SMALL Urine Nitrite NEG Urine Bilirubin NEG Urine Urobilinogen LESS THAN 2.0 MG/DL Urine Leukocyte Esterase NEG Urine RBC 7 /hpf Urine WBC 3 /hpf Urine Squamous Epithelial Cells <1 /hpf Urine Transitional Epithelial Cells <1 /hpf Microscopic Urinalysis Comment CULT NOT INDICATED Blood Urea Nitrogen 32 MG/DL Creatinine 3.06 MG/DL Random Glucose 84 MG/DL Total Protein 6.1 GM/DL Albumin 2.5 GM/DL Calcium Level 9.2 MG/DL Phosphorus Level 1.1 MG/DL Magnesium Level 2.2 MG/DL Alkaline Phosphatase 81 U/L Aspartate Amino Transf (AST/SGOT) 19 U/L Alanine Aminotransferase (ALT/SGPT) 16 U/L Total Bilirubin 0.5 MG/DL Sodium Level 136 MEQ/L Potassium Level 4.1 MEQ/L Chloride Level 98 MEQ/L Carbon Dioxide Level 26.6 MEQ/L Anion Gap 11 MEQ/L Estimat Glomerular Filtration Rate 15 ML/MIN Total Creatine Kinase 28 U/L Troponin I 0.04 NG/ML Lipase 192 U/L Thyroid Stimulating Hormone 3rd Gen 6.300 uIU/ML Date/Time Source Procedure Growth Status 06/07/17 06:45 Blood Peripheral Aerobic Blood Culture Pending Received 06/07/17 06:45 Blood Peripheral Anaerobic Blood Culture Pending Received Physical Examination HEENT: normocephalic; atraumatic; no jaundice. CHEST: CTA CARDIAC: RRR ABDOMEN: Soft, distended, lower quadrant TTP; no hepatosplenomegaly; bowel sounds are present in all four quadrants. EXTREMITIES: No clubbing, cyanosis, or edema. SKIN: Normal; no rash; no jaundice. 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 p PLAN - golytely - fleets enema - if no yield from above, consider colonoscopy - further recs to follow pt seen by myself and Dr Izaguirre and this note is on his behalf (Debra Lawson) Physician Comments Patient seen and examined Agree with above Continue with current supportive care Monitor lab We will probably pursue a colonoscopy on Wednesday Patient seen 05/18/17 (Isaac Izaguirre MD) Debra Lawson Jun 07, 2017 14:08 Isaac Izaguirre MD Jun 08, 2017 00:23
--- NOTE | 2017-06-07 14:10 | PD.CONS ---
Consult Service Palliative Care Consult Requested By Shirlene REN. Primary Care Physician Unknown Reason for Consultation a. To assist with evaluation and management of symptoms including: abdominal pain, dyspnea b. To assist medical decision maker(s) with: better understanding of current medical conditions; weighing benefits/burdens of medical treatment options; making medical treatment decisions. HPI History of Present Illness This 82-year-old female was brought to the ED via EMS 06/07/17 from home for altered mental status and abdominal pain. reports patient had been confused all night. Patient was also groaning and complaining of abdominal pain all night. No reported fever. No nausea vomiting or diarrhea reported. Patient was noted to have recent admission 05/25 through 06/06 for pneumonia, ESRD on hemodialysis, COPD, hypertension. * ED course: CXR noted with multifocal lung consolidation similar to exam 06/06. UA negative. CT abdomen pelvis Oliveros catheter with balloon just below the bladder base. Moderate amount of urine in the bladder. Could be advanced. Nonspecific bowel gas pattern with moderate to large amount of stool in distal colon which could indicate constipation. Findings may represent ileus and/or gastroenteritis. Small bilateral pleural effusions. CT brain= no acute process. Suboptimal secondary to motion artifact. * Patient recently hospitalized 05/25 through 06/06= she was admitted with fluid overload though denied missing dialysis treatment. Concern for cardiac causes. She received treatment for pneumonia, hemoptysis. Pulmonology consulted. She underwent bronchoscopy 06/02. She was noted to be constipated, rec to follow -up with GI/colorectal outpatient. Oncology followed during that admission for: +multiple masses in bilateral lungs. Biopsy showed adenocarcinoma. She received stereotactic radiation to 2 lesions in the left lung and 1 on the right. Her PET scan 09/2016 showed post-radiation changes in bilateral lungs. A CT scan in March showed a diffuse consolidation in the right upper lobe, but they appeared to be more consolidated. repeat PET scan again 04/28, which showed increased hypermetabolic uptake in the left hilar area suspicious for recurrent disease + hypermetabolic activity in right upper lobe with corresponding consolidation, but appeared to be stable and likely radiation changes. Cytology/pathology pending from bronchoscopy completed for mucous plugs. Patient recommended to follow-up with radiation oncology outpatient. Review of bronchoscopy cytology indicates negative for malignant cells. * Per oncology outpatient follow-up notes--patient has not been a candidate for systemic chemotherapy due to advanced age and hemodialysis. She had been tolerating stereotactic radiation fairly well. * Palliative care consulted to assist with clarification of goals of treatment. GI also consulted as patient noted with abdominal pain, may require evaluation for sigmoidoscopy or possible colorectal surgery evaluation. Pt seen in ED - at bedside.Pt lethargic, moaning, calling out. Nonsensical speech. spoke with at bedside. He is tearful at times. Review with him most recent hospital course, discharge back home. He expresses that he felt the patient was discharged too soon, he tells me that since she has been home she has had severe pain and has been inconsolable, then she fell and he called EMS to help her get up and requested her be brought to the ED. he indicates prior to recent May hospitalization she had been doing fine at home, fairly active, independent with ADLs no functional issues day to day. She used oxygen intermittently as needed. She had not been having activity limiting dyspnea, pain, any GI issues or ongoing constipation or bowel issues. She had been able to carry on her usual activity level. She was eating her normal amount no weight loss. He believes she has advanced directives though he has not read them recently. He believes she does not want life support or resuscitation, however does not wish to change to DNR status until their children arrive later this evening. Advised that he can request DNR status at that time. Review with him pending GI consult; patient may require upper or lower endoscopies, colonoscopy etc. He indicates the bowel prep will be difficult for the patient however if it is possible that they may be able to relieve her current acute pain he would agree to proceed with workup. He indicates given her underlying cancer, dialysis and the difficulty she has had this May he would not want to do a lot of further invasive things that may not help her feel or get better. He would like to have ongoing discussions with medical providers once his children arrived. 4 adult children are coming from out of state will be arriving later this evening. . Function/Cognitive Trajectory Lives at home with spouse, reported to be independent with ADLs prior to most recent admission. She was recommended to go home with home health following most recent admission 06/06. Review of Systems ROS Limitations: Clinical Condition, Altered Mental Status, Poor Historian Constitutional: COMPLAINS OF: Pain (Limited ROS, obtained per patient ) , DENIES: Fatigue, Fever, Weight gain, Weight loss Ears, nose, mouth, throat: DENIES: Throat pain Respiratory: COMPLAINS OF: Shortness of breath, DENIES: Cough, Sputum production Cardiovascular: DENIES: Chest pain, Lower Extremity Edema Gastrointestinal: COMPLAINS OF: Diarrhea, DENIES: Black stools, Bloody stools, Nausea, Vomiting, Difficulty Swallowing, Anorexia Genitourinary: DENIES: Urinary incontinence, Hematuria Integumentary: DENIES: Rash Psychiatric: COMPLAINS OF: Anxiety, Confusion Past Family Social History Coded Allergies: diatrizoate meglumine (Verified Allergy, Severe, Hives, 05/25/17) gadobenic acid (Verified Allergy, Severe, Hives, 05/25/17) gadodiamide (Verified Allergy, Severe, Hives, 05/25/17) gadoteridol (Verified Allergy, Severe, Hives, 05/25/17) iodixanol (Verified Allergy, Severe, Hives, 05/25/17) iohexol (Verified Allergy, Severe, Hives, 05/25/17) metronidazole (Verified Allergy, Severe, DIFFICULTY BREATHING, EXTREME NAUSEA, VOMITING, 05/25/17) cholestyramine (Verified Adverse Reaction, Intermediate, STOMACH UPSET, 12/02) codeine (Verified Adverse Reaction, Intermediate, UPSET STOMACH, 05/25/17) colesevelam (Verified Adverse Reaction, Intermediate, STOMACH UPSET, ) gemfibrozil (Verified Adverse Reaction, Intermediate, STOMACH UPSET, ) levofloxacin (Verified Adverse Reaction, Intermediate, Nausea/Vomiting, 12/02) patient said it gave her extreme anxiety also. lorazepam (Verified Adverse Reaction, Intermediate, STOMACH UPSET, 05/25/17 ) lovastatin (Verified Adverse Reaction, Intermediate, STOMACH UPSET, ) propoxyphene (Verified Adverse Reaction, Intermediate, UPSET STOMACH, 05/25) Past Medical History GERD Hypertension End-stage renal disease on hemodialysis since 06/2015 COPD Lung cancer- non-small cell lung carcinoma, possible stage IV d/t possible metastatic disease right lung-status post stereotactic radiation 04/2016-06/2016; planned for outpatient radiation follow-up 05/2016 CHF Hypothyroid . Past Surgical History Hemodialysis AV fistula Cholecystectomy Left carpal tunnel repair 2016 Colon resection Appendectomy Inguinal hernia repair 2011 Right breast biopsy benign 1985 Thyroid nodule excision 1977 Tubal ligation Skin cancer excision . Reported Medications Zofran Odt (Ondansetron Odt) 4 Mg Tab 4 Mg SL Q6HR PRN Atorvastatin (Atorvastatin Calcium) 20 Mg Tab 20 Mg PO HS Oxygen tank (Oxygen) 1 Ea Tank 2 Liter CLEMENTE.CANULA CONTINUOUS Oxygen Concentrator Portable Gaseous 2 L/min via Nasal Cannula Continuous For 99 months Nifedipine ER (Nifedipine) 90 Mg Tab 90 Mg PO DAILY Omeprazole 40 Mg Cap 40 Mg PO DAILY Sucralfate 1 Gm Tab 1 Gm PO TID on empty stomach Losartan (Losartan Potassium) 100 Mg Tab 100 Mg PO DAILY Levothyroxine (Levothyroxine Sodium) 100 Mcg Tab 100 Mcg PO DAILY Flonase Nasal [place] (Fluticasone Nasal [place]) 50 Mcg/Act [place] 2 [place] EACH NARE DAILY PRN Centrum Silver Adult 50+ (Multiple Vitamins W/ Minerals) 1 Tab Tab 1 Tab PO AC LUNCH Senna S (Sennosides-Docusate Sodium) 8.6-50 Mg Tab 4 Tab PO HS Lutein 20 Mg Cap 20 Mg PO DAILY Fluoxetine (Fluoxetine HCl) 20 Mg Tab 20 Mg PO HS Catapres (Clonidine) 0.2 Mg Tab 0.2 Mg PO Q8HR Calcitriol 0.25 Mcg Cap 0.25 Mcg PO DAILY Aspirin Adult Low Strength (Aspirin) 81 Mg Tabdr 81 Mg PO DAILY Ventolin Hfa 18 GM Inh (Albuterol Sulfate) 90 Mcg/Act Aer 2 Puff INH Q4H PRN Metoprolol Succinate ER 24 HR (Metoprolol Succinate) 25 Mg Tab 25 Mg PO DAILY . Current Medications Medications (Trade) Dose Ordered Sig/Raheel Route Start Time Stop Time Status Last Admin (NS Flush) 2 ml UNSCH PRN IV FLUSH 06/07/17 10:15 (NS Flush) 2 ml BID IV FLUSH 06/07/17 21:00 (Tylenol) 650 mg Q4H PRN PO 06/07/17 10:15 (Zofran Inj) 4 mg Q6H PRN IVP 06/07/17 10:15 (Heparin Inj) 5,000 units Q12H SQ 06/07/17 11:00 06/07/17 11:10 (Narcan Inj) 0.4 mg UNSCH PRN IV PUSH 06/07/17 10:15 (Irma-Colace) 1 tab BID PO 06/07/17 21:00 (Milk Of Magnesia Liq) 30 ml Q12H PRN PO 06/07/17 10:15 (Senokot) 17.2 mg Q12H PRN PO 06/07/17 10:15 (Dulcolax Supp) 10 mg DAILY PRN RECTAL 06/07/17 10:15 (Lactulose Liq) 30 ml DAILY PRN PO 06/07/17 10:15 (Catapres) 0.1 mg Q6H PRN PO 06/07/17 10:15 Family History Both parents . Father had lung carcinoma, mother had uterine and breast carcinoma. Substance Use Tobacco: Former smoker, quit 12 years ago, smoked 1/2 PPD 40 years Alcohol: None Prescription med abuse: None Illicits: None . Psychosocial History Lives at home with her spouse of 30+ years. has 2 sons, 2 daughters who live out of state. Retired. 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 . Living Will: Completed, but not made available Health Care Surrogate: Completed, but not made available Ethical and Legal Issues Patient is currently unable to participate in decision-making. She may regain ability to participate if her clinical condition improves. indicates he is designated healthcare surrogate he indicates she does have documentation of this. In absence of documentation he would be appropriate legal proxy per [place] statutes. Physical Exam Vital Signs Date Time Temp Pulse Resp B/P (MAP) Pulse Ox O2 Delivery O2 Flow Rate FiO2 06/07/17 13:00 66 19 150/80 (103) 99 Nasal Cannula 2.00 06/07/17 10:30 76 21 218/106 (143) 95 Nasal Cannula 2.00 06/07/17 07:40 70 20 100 Nasal Cannula 2.00 06/07/17 07:38 98.3 70 20 211/84 (126) 100 Nasal Cannula 2.00 06/07/17 06:50 96 06/07/17 06:09 61 26 218/124 (155) 98 Exam CONSTITUTIONAL/GENERAL: This is an adequately nourished patient, moaning at times, facial grimace at times. TUBES/LINES/DRAINS:PIV upper extremity, NC O2, oliveros catheter . SKIN: No jaundice, rashes, or lesions. Multiple areas ecchymoses on upper extremities, and across abdomen. No wounds seen anteriorly. Skin warm/dry. HEAD: Atraumatic. Normocephalic. EYES: Pupils equal and round and reactive. Extraocular motions intact. No scleral icterus. No injection or drainage. Fundi not examined. ENT: Nose without bleeding or purulent drainage. Does not open-mouth for oropharynx exam. NECK: Trachea midline. Supple, nontender. No palpable thyroid enlargement or nodularity. CARDIOVASCULAR: Regular rate and rhythm without murmur-difficult to hear secondary to moaning. No JVD. Peripheral pulses symmetric. No peripheral edema. RESPIRATORY/CHEST: Symmetric, unlabored respirations. Clear to auscultation, decreased air movement to bases--difficulty hear secondary to moaning. Breath sounds equal bilaterally. GASTROINTESTINAL: Abdomen soft, non-tender, nondistended. No hepato-splenomegaly , or palpable masses. No guarding. Bowel sounds present. GENITOURINARY: Without palpable bladder distension. Oliveros catheter in place clear yellow urine. MUSCULOSKELETAL: Extremities without clubbing, cyanosis, or edema. No joint tenderness or effusion noted. LYMPHATICS: No palpable cervical or supraclavicular adenopathy. NEUROLOGICAL: Lethargic. Mostly groaning nonsensical speech. Does not answer any questions. Does not follow my commands. Does move all 4 extremities. Seems to interact with her though again does not speak in intelligible words. PSYCHIATRIC: + Moaning, restless . Diagnostic Tests Laboratory Laboratory Tests Test 06/07/17 06:45 White Blood Count 11.2 TH/MM3 (4.0-11.0) Red Blood Count 3.84 MIL/MM3 (4.00-5.30) Hemoglobin 12.1 GM/DL (11.6-15.3) Hematocrit 37.8 % (35.0-46.0) Mean Corpuscular Volume 98.5 FL (80.0-100.0) Mean Corpuscular Hemoglobin 31.6 PG (27.0-34.0) Mean Corpuscular Hemoglobin Concent 32.1 % (32.0-36.0) Red Cell Distribution Width 17.5 % (11.6-17.2) Platelet Count 185 TH/MM3 (150-450) Mean Platelet Volume 8.6 FL (7.0-11.0) Neutrophils (%) (Auto) 83.6 % (16.0-70.0) Lymphocytes (%) (Auto) 6.5 % (9.0-44.0) Monocytes (%) (Auto) 8.1 % (0.0-8.0) Eosinophils (%) (Auto) 1.0 % (0.0-4.0) Basophils (%) (Auto) 0.8 % (0.0-2.0) Neutrophils # (Auto) 9.4 TH/MM3 (1.8-7.7) Lymphocytes # (Auto) 0.7 TH/MM3 (1.0-4.8) Monocytes # (Auto) 0.9 TH/MM3 (0-0.9) Eosinophils # (Auto) 0.1 TH/MM3 (0-0.4) Basophils # (Auto) 0.1 TH/MM3 (0-0.2) CBC Comment DIFF FINAL Differential Comment Prothrombin Time 10.7 SEC (9.8-11.6) Prothromb Time International Ratio 1.1 RATIO Activated Partial Thromboplast Time 23.4 SEC (24.3-30.1) Urine Color YELLOW (YELLW/STRAW) Urine Turbidity CLEAR (CLEAR) Urine pH 8.0 (5.0-8.5) Urine Specific [place] 1.008 (1.002-1.035) Urine Protein 100 mg/dL (NEG-TRACE) Urine Glucose (UA) NEG mg/dL (NEG) Urine Ketones NEG mg/dL (NEG) Urine Occult Blood SMALL (NEG) Urine Nitrite NEG (NEG) Urine Bilirubin NEG (NEG) Urine Urobilinogen LESS THAN 2.0 MG/DL (LESS Urine Leukocyte Esterase NEG (NEG) Urine RBC 7 /hpf (0-3) Urine WBC 3 /hpf (0-5) Urine Squamous Epithelial Cells <1 /hpf (0-5) Urine Transitional Epithelial Cells <1 /hpf (NONE) Microscopic Urinalysis Comment CULT NOT INDICATED Blood Urea Nitrogen 32 MG/DL (7-18) Creatinine 3.06 MG/DL (0.50-1.00) Random Glucose 84 MG/DL (74-106) Total Protein 6.1 GM/DL (6.4-8.2) Albumin 2.5 GM/DL (3.4-5.0) Calcium Level 9.2 MG/DL (8.5-10.1) Phosphorus Level 1.1 MG/DL (2.5-4.9) Magnesium Level 2.2 MG/DL (1.5-2.5) Alkaline Phosphatase 81 U/L (45-117) Aspartate Amino Transf (AST/SGOT) 19 U/L (15-37) Alanine Aminotransferase (ALT/SGPT) 16 U/L (10-53) Total Bilirubin 0.5 MG/DL (0.2-1.0) Sodium Level 136 MEQ/L (136-145) Potassium Level 4.1 MEQ/L (3.5-5.1) Chloride Level 98 MEQ/L (98-107) Carbon Dioxide Level 26.6 MEQ/L (21.0-32.0) Anion Gap 11 MEQ/L (5-15) Estimat Glomerular Filtration Rate 15 ML/MIN (>89) Total Creatine Kinase 28 U/L (26-192) Troponin I 0.04 NG/ML (0.02-0.05) Lipase 192 U/L (73-393) Thyroid Stimulating Hormone 3rd Gen 6.300 uIU/ML (0.358-3.740) Result Diagram: 06/07/1764406/07/17644 Microbiology Microbiology Date/Time Source Procedure Growth Status 06/07/17 06:45 Blood Peripheral Aerobic Blood Culture Pending Received 06/07/17 06:45 Blood Peripheral Anaerobic Blood Culture Pending Received 06/07/17 06:10 Blood Peripheral Aerobic Blood Culture Pending Received 06/07/17 06:10 Blood Peripheral Anaerobic Blood Culture Pending Received Imaging Last Impressions Head CT 06/07/17609 Signed Impressions: Service Date/Time: Wednesday, June 07, 2017 09:38 - CONCLUSION: 1. No acute hemorrhage or mass effect. 2. Suboptimal study secondary to motion artifact. Hussain Zamorano MD Chest X-Ray 06/07/17609 Signed Impressions: Service Date/Time: Wednesday, June 07, 2017 06:23 - CONCLUSION: 1. Multifocal lung consolidation similar to June 06. Sebastien Hastings MD Abdomen/Pelvis CT 06/07/17609 Signed Impressions: Service Date/Time: Wednesday, June 07, 2017 09:41 - CONCLUSION: 1. Oliveros catheter in place with the balloon just below the bladder base. There is a moderate amount of urine in the bladder which is otherwise unremarkable. This could be advanced. 2. Nonspecific bowel gas pattern with moderate to large amount of stool in distal colon which could indicate constipation. Findings may represent ileus and/or gastroenteritis. 3. Small bilateral pleural effusions. Hussain Zamorano MD Patient/Family Conference Family Conference Time (mins): 25 (minutes) Family Conference Location: Bedside Issues Discussed: met w at pt bedside, discussion included the following:: * Palliative care role, purpose, approach * Additional medical, psychosocial, and spiritual history * Patients general health, functional status, and cognitive changes in the months leading up to the current hospitalization * Patient/family understanding of the current medical problems * Patient/family understanding of prognosis * Patients goals of care as best understood from advance directives and/or conversations and/or values * Current medical treatment options and benefits/burdens of those options * CODE STATUS reviewed-he feels she would probably want DNR and that they have talked about this before however he does not wish to elect DNR until her children are here to support him with these decisions * Likely scenarios comparing ongoing aggressive care with a transition to comfort measures only--review pursuing further GI workup versus no further interventions he does agree to proceed with GI workup as this may possibly help her. He does wish to have ongoing conversations regarding conditions, treatment options going forward. * Questions answered to the best of my ability * Palliative care contact information provided Pt seen in ED - at bedside.Pt lethargic, moaning, calling out. Nonsensical speech. spoke with at bedside. He is tearful at times. Review with him most recent hospital course, discharge back home. He expresses that he felt the patient was discharged to soon, he tells me that since she has been home she has had severe pain and has been inconsolable, then she fell and he called EMS to help her get up and requested her be brought to the ED. he indicates prior to recent May hospitalization she had been doing fine at home, fairly active, independent with ADLs no functional issues day to day. She used oxygen intermittently as needed. He believes she has advanced directives though he has not read them recently. He believes she does not want life support or resuscitation, however does not wish to change to DNR status until their children arrive later this evening. Advised that he can request DNR status at that time. Review with him pending GI consult; patient may require upper or lower endoscopies, colonoscopy etc. He indicates the bowel prep will be difficult for the patient however if it is possible that they may be able to relieve her current acute pain he would agree to proceed with workup. He indicates given her underlying cancer, dialysis and the difficulty she has had this May he would not want to do a lot of further invasive things that may not help her feel or get better. He would like to have ongoing discussions with medical providers once his children arrived. 4 adult children are coming from out of state will be arriving later this evening. . Assessment and Plan Disease Oriented Problem List: (1) Pneumonia (2) Small cell lung cancer (3) HTN (hypertension) (4) Intractable abdominal pain (5) Anemia due to chronic kidney disease (6) End stage renal disease on dialysis Symptom Scale: (1) Dyspnea 0-10 Scale: Unable to quantify (2) Pain, abdominal 0-10 Scale: Unable to quantify Pertinent Non-Medical Issues Psychosocial:Lives at home with her spouse of 30+ years. has 2 sons, 2 daughters who live out of state. Retired. 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 She may regain ability to participate if her clinical condition improves. indicates he is designated healthcare surrogate he indicates she does have documentation of this. In absence of documentation he would be appropriate legal proxy per [place] statutes. Ethical issues impacting care: No ethical issues identified Important Contacts Ru Calderon, spouse, [phone] . Prognosis this pt was admitted for AMS, pain 06/07; following recent hospitalization 05/25- for pneumonia, hemoptysis. CT abdomen = possible ileus vs constipation vs gastroenteritis. Hx underlying ESRD on HD, NSCLC. Prognosis guarded, high risk for clinical decline due to multiple chronic medical conditions, and advanced age. . Code Status: Full Code Plan * Legal decision maker:Patient is currently unable to participate in decision- making. She may regain ability to participate if her clinical condition improves. indicates he is designated healthcare surrogate he indicates she does have documentation of this. In absence of documentation he would be appropriate legal proxy per [place] statutes. * Goals: is in agreement with proceeding with GI workup as this may provide relief of some of her symptoms. He does want to limit possible further aggressive/invasive measures that may not improve her quality of life he wishes to have ongoing conversations with providers once their adult children are in town. Palliative plans to follow-up with him tomorrow, he expects their 4 adult children to be arriving throughout the evening tonight. * CODE STATUS: Full code by default; though considering DNR once children arrive * SYMPTOMS: --dyspnea- hx COPD, +pneumonia, on/off 02 at home. currently breathing comfortably on NC. --abdominal pain- presented w severe abdominal pain. Apparently just d/c the day before presentation, one of her issues at d/c was constipation. reports having loose BMs at home. denies blood in stool, black stool. GI work up pending. CT abdomen = possible ileus vs constipation vs gastroenteritis. Earlier received some PRN morphine, hydromorphone, still intermittently moaning in pain. Cautious use of opiates given AMS at presentation, hx ESRD, opiate na ve. Consider PRN hydromorphone 0.25 mg to 0.5 mg every 3-4 PRN pain. If this is in fact ileus may consider using Relistor to not worsen. * Palliative care will continue to follow during hospital course as condition evolves, to assist patient/decision-maker with understanding of medical conditions, weighing benefits/burdens of treatment options, for clarification of goals of treatment. Additionally will assist with any symptoms of palliative concern . Time Spent Total Floor Time (mins): 70 (Discussion with nurse, physical exam, discussion with spouse at bedside) Thank you for the opportunity to participate in the care of Ms. Calderon. Margarita Collier Jun 07, 2017 14:10
[2017-06-07] MEDS ORDERED: PEG (High)/E-LYTE SOLN 4000 ML BTL PO ONE (14:15)
--- NOTE | 2017-06-07 17:39 | HHI.HP ---
HPI Service [facility] Primary Care Physician Unknown Admission Diagnosis PNA; AMS; Consipation Diagnoses: Travel History International Travel<30 Days: No Contact w/Intl Traveler <30 Da: No Traveled to Known Affected Are: No History of Present Illness Ms. Calderon is an 82 year old female with a history of ESRD, COPD who presented back to the hospital within 24 hour of discharge due to abdominal pain and altered mental status. Patient was discharged on 06/06/2017. On 06/05/2017, patient had significant problem with constipation. RN attempted manual disimpaction and eventually required mag citrate. On 06/06/2017, patient was doing well - she was alert, oriented x 3, ambulating well. Her plan was to go home and follow up with a colorectal surgeon. She went home in hemodynamically stable condition. Unfortunately, within 24 hours, she started having abdominal pain and altered mental status. On arrival, CT head negative, CT abd/pelvis indicate possible constipation and ileus. GI consulted. Despite trying enema, she had very little bowel movement and her mental status has not improved. Review of Systems ROS Limitations: Clinical Condition, Altered Mental Status, Uncooperative Except as stated in HPI: all other systems reviewed are Neg Past Family Social History Past Medical History GERD Hypertension End-stage renal disease on hemodialysis since 06/2015 COPD Lung cancer- non-small cell lung carcinoma, possible stage IV d/t possible metastatic disease right lung-status post stereotactic radiation 04/2016-06/2016; planned for outpatient radiation follow-up 05/2016 CHF Hypothyroid . Past Surgical History Hemodialysis AV fistula Cholecystectomy Left carpal tunnel repair 2016 Colon resection Appendectomy Inguinal hernia repair 2010 Right breast biopsy benign 1984 Thyroid nodule excision 1976 Tubal ligation Skin cancer excision . Allergies: Coded Allergies: diatrizoate meglumine (Verified Allergy, Severe, Hives, 05/25/17) gadobenic acid (Verified Allergy, Severe, Hives, 05/25/17) gadodiamide (Verified Allergy, Severe, Hives, 05/25/17) gadoteridol (Verified Allergy, Severe, Hives, 05/25/17) iodixanol (Verified Allergy, Severe, Hives, 05/25/17) iohexol (Verified Allergy, Severe, Hives, 05/25/17) metronidazole (Verified Allergy, Severe, DIFFICULTY BREATHING, EXTREME NAUSEA, VOMITING, 05/25/17) cholestyramine (Verified Adverse Reaction, Intermediate, STOMACH UPSET, 12/02) codeine (Verified Adverse Reaction, Intermediate, UPSET STOMACH, 05/25/17) colesevelam (Verified Adverse Reaction, Intermediate, STOMACH UPSET, ) gemfibrozil (Verified Adverse Reaction, Intermediate, STOMACH UPSET, ) levofloxacin (Verified Adverse Reaction, Intermediate, Nausea/Vomiting, 12/02) patient said it gave her extreme anxiety also. lorazepam (Verified Adverse Reaction, Intermediate, STOMACH UPSET, 05/25/17 ) lovastatin (Verified Adverse Reaction, Intermediate, STOMACH UPSET, ) propoxyphene (Verified Adverse Reaction, Intermediate, UPSET STOMACH, 05/25) Family History Both parents . Father had lung carcinoma, mother had uterine and breast carcinoma. Social History no toxic habits, per EMR Physical Exam Vital Signs Vital Signs Date Time Temp Pulse Resp B/P (MAP) Pulse Ox O2 Delivery O2 Flow Rate FiO2 06/07/17 16:00 97.9 71 21 148/76 (100) 95 06/07/17 15:00 98.1 76 16 186/86 (119) 97 Nasal Cannula 2.00 06/07/17 15:00 98.1 76 18 186/86 (119) 98 Nasal Cannula 2.00 06/07/17 13:00 66 19 150/80 (103) 99 Nasal Cannula 2.00 06/07/17 10:30 76 21 218/106 (143) 95 Nasal Cannula 2.00 06/07/17 07:40 70 20 100 Nasal Cannula 2.00 06/07/17 07:38 98.3 70 20 211/84 (126) 100 Nasal Cannula 2.00 06/07/17 06:50 96 06/07/17 06:09 61 26 218/124 (155) 98 Physical Exam GENERAL: Elderly female, moaning in pain, does not answer any question. SKIN: No rashes, ecchymoses or lesions. Warm and dry. HEAD: Atraumatic. Normocephalic. No temporal or scalp tenderness. EYES: Pupils equal round and reactive. No injection or drainage. ENT: Nose without bleeding, purulent drainage or septal hematoma. Airway patent. NECK: Trachea midline. No lymphadenopathy. Supple, nontender, no meningeal signs. CARDIOVASCULAR: Regular rate and rhythm without murmurs, gallops, or rubs. No JVD. RESPIRATORY: Clear to auscultation. Breath sounds equal bilaterally. No wheezes , rales, or rhonchi. GASTROINTESTINAL: Abdomen soft, appears to be in pain on palpation. MUSCULOSKELETAL: Extremities without clubbing, cyanosis, or edema. NEUROLOGICAL: Unable to assess due to patient's condition. Laboratory Laboratory Tests Test 06/07/17 06:45 White Blood Count 11.2 Red Blood Count 3.84 Hemoglobin 12.1 Hematocrit 37.8 Mean Corpuscular Volume 98.5 Mean Corpuscular Hemoglobin 31.6 Mean Corpuscular Hemoglobin Concent 32.1 Red Cell Distribution Width 17.5 Platelet Count 185 Mean Platelet Volume 8.6 Neutrophils (%) (Auto) 83.6 Lymphocytes (%) (Auto) 6.5 Monocytes (%) (Auto) 8.1 Eosinophils (%) (Auto) 1.0 Basophils (%) (Auto) 0.8 Neutrophils # (Auto) 9.4 Lymphocytes # (Auto) 0.7 Monocytes # (Auto) 0.9 Eosinophils # (Auto) 0.1 Basophils # (Auto) 0.1 CBC Comment DIFF FINAL Differential Comment Prothrombin Time 10.7 Prothromb Time International Ratio 1.1 Activated Partial Thromboplast Time 23.4 Urine Color YELLOW Urine Turbidity CLEAR Urine pH 8.0 Urine Specific [place] 1.008 Urine Protein 100 Urine Glucose (UA) NEG Urine Ketones NEG Urine Occult Blood SMALL Urine Nitrite NEG Urine Bilirubin NEG Urine Urobilinogen LESS THAN 2.0 Urine Leukocyte Esterase NEG Urine RBC 7 Urine WBC 3 Urine Squamous Epithelial Cells <1 Urine Transitional Epithelial Cells <1 Microscopic Urinalysis Comment CULT NOT INDICATED Blood Urea Nitrogen 32 Creatinine 3.06 Random Glucose 84 Total Protein 6.1 Albumin 2.5 Calcium Level 9.2 Phosphorus Level 1.1 Magnesium Level 2.2 Alkaline Phosphatase 81 Aspartate Amino Transf (AST/SGOT) 19 Alanine Aminotransferase (ALT/SGPT) 16 Total Bilirubin 0.5 Sodium Level 136 Potassium Level 4.1 Chloride Level 98 Carbon Dioxide Level 26.6 Anion Gap 11 Estimat Glomerular Filtration Rate 15 Total Creatine Kinase 28 Troponin I 0.04 Lipase 192 Thyroid Stimulating Hormone 3rd Gen 6.300 Date/Time Source Procedure Growth Status 06/07/17 06:45 Blood Peripheral Aerobic Blood Culture Pending Received 06/07/17 06:45 Blood Peripheral Anaerobic Blood Culture Pending Received Result Diagram: 06/07/1745 06/07/1745 Imaging Last Impressions Head CT 06/07/17609 Signed Impressions: Service Date/Time: Wednesday, June 07, 2017 09:38 - CONCLUSION: 1. No acute hemorrhage or mass effect. 2. Suboptimal study secondary to motion artifact. Hussain Zamorano MD Chest X-Ray 06/07/17609 Signed Impressions: Service Date/Time: Wednesday, June 07, 2017 06:23 - CONCLUSION: 1. Multifocal lung consolidation similar to June 06. Sebastien Hastings MD Abdomen/Pelvis CT 06/07/17609 Signed Impressions: Service Date/Time: Wednesday, June 07, 2017 09:41 - CONCLUSION: 1. Livingston catheter in place with the balloon just below the bladder base. There is a moderate amount of urine in the bladder which is otherwise unremarkable. This could be advanced. 2. Nonspecific bowel gas pattern with moderate to large amount of stool in distal colon which could indicate constipation. Findings may represent ileus and/or gastroenteritis. 3. Small bilateral pleural effusions. Hussain Zamorano MD [place] VTE Risk Assessment Caprini VTE Risk Assessment: Mod/High Risk (score >= 2) Caprini Risk Assessment Model Point Value = 1 Point Value = 2 Point Value = 3 Point Value = 5 Age 41-60 Minor surgery BMI > 25 kg/m2 Swollen legs Varicose veins or History of unexplained or recurrent spontaneous Oral contraceptives or hormone replacement Sepsis (< 1 month) Serious lung disease, including pneumonia (< 1 month) Abnormal pulmonary function Acute myocardial infarction Congestive heart failure (< 1 month) History of inflammatory bowel disease Medical patient at bed rest Age 61-74 Arthroscopic surgery Major open surgery (> 45 min) Laparoscopic surgery (> 45 min) Malignancy Confined to bed (> 72 hours) Immobilizing plaster cast Central venous access Age >= 75 History of VTE Family history of VTE Factor V Leiden Prothrombin [id number] Lupus anticoagulant Anticardiolipin antibodies Elevated serum homocysteine Heparin-induced thrombocytopenia Other congenital or acquired thrombophilia Stroke (< 1 month) Elective arthroplasty Hip, pelvis, or leg fracture Acute spinal cord injury (< 1 month) Prophylaxis Regimen Total Risk Factor Score Risk Level Prophylaxis Regimen 0-1 Low Early ambulation 2 Moderate Order ONE of the following: *Sequential Compression Device (SCD) *Heparin 5000 units SQ BID 3-4 Higher Order ONE of the following medications: *Heparin 5000 units SQ TID *Enoxaparin/Lovenox 40 mg SQ daily (WT < 150 kg, CrCl > 30 mL/min) *Enoxaparin/Lovenox 30 mg SQ daily (WT < 150 kg, CrCl > 10-29 mL/min) *Enoxaparin/Lovenox 30 mg SQ BID (WT < 150 kg, CrCl > 30 mL/min) AND/OR *Sequential Compression Device (SCD) 5 or more Highest Order ONE of the following medications: *Heparin 5000 units SQ TID (Preferred with Epidurals) *Enoxaparin/Lovenox 40 mg SQ daily (WT < 150 kg, CrCl > 30 mL/min) *Enoxaparin/Lovenox 30 mg SQ daily (WT < 150 kg, CrCl > 10-29 mL/min) *Enoxaparin/Lovenox 30 mg SQ BID (WT < 150 kg, CrCl > 30 mL/min) AND *Sequential Compression Device (SCD) Assessment and Plan Assessment and Plan Ms. Calderon is an 82 year old female with a history of ESRD, COPD who presented back to the hospital within 24 hour of discharge due to abdominal pain and altered mental status. Acute metabolic encephalopathy - Possibly due to abdominal pain. - We have tried enema which has not helped much - Will check lactic acid. - Will give NS 100cc/hour. - Morphine for pain PRN - GI is following. ESRD on hemodialysis. - Will consult Nephrology. Hx of lung cancer patient underwent bronchoscopy on 05/22/2017. Full code. SCDs. Physician Certification 2 Midnight Certification Type: Admission for Inpatient Services Order for Inpatient Services The services are ordered in accordance with Medicare regulations or non- Medicare payer requirements, as applicable. In the case of services not specified as inpatient-only, they are appropriately provided as inpatient services in accordance with the 2-midnight benchmark. Estimated LOS (days): 2 days is the estimated time the patient will need to remain in the hospital, assuming treatment plan goals are met and no additional complications. Post-Hospital Plan: Home Maico Campbell DO Jun 07, 2017 17:39
[2017-06-07] MEDS ORDERED: MORPHINE SULFATE 2 MG/ML SYRINGE IV PUSH PRN (17:45)
[2017-06-07] MEDS ORDERED: SOD PHOSPHATE/SOD BIPHOSPHATE (ADULT) ENEMA 133ML RECTAL PRN (18:00)
[2017-06-07] MEDS: SODIUM CHLOR 0.9% 1000 ML INJ 1,000 ML IV SCH (18:42)
[2017-06-07] MEDS: DOCUSATE SODIUM 50 MG/SENNA 8.6 MG TAB PO SCH (21:00)
[2017-06-07] MEDS: SODIUM CHLORIDE 0.9% FLUSH 10 ML FLUSH IV FLUSH SCH (21:07)
[2017-06-08] VITALS: BP 143/82; PULSE 82; RESP 22; TEMP 98; O2SAT 96
[2017-06-08] MEDS: MORPHINE SULFATE 4 MG/ML INJ IV PRN ×7 (00:01→23:10)
[2017-06-08 04:00] VITALS: BP 187/84; PULSE 85; RESP 24; TEMP 98.1; O2SAT 94
[2017-06-08] MEDS: SODIUM CHLOR 0.9% 1000 ML INJ 1,000 ML IV SCH (04:00)
[2017-06-08 07:50] VITALS: BP 158/109; PULSE 86; RESP 19; TEMP 97.5; O2SAT 97
[2017-06-08] MEDS: SODIUM CHLORIDE 0.9% FLUSH 10 ML FLUSH IV FLUSH SCH ×2 (08:45→21:00)
[2017-06-08] MEDS: DOCUSATE SODIUM 50 MG/SENNA 8.6 MG TAB PO SCH ×2 (08:46→21:00)
[2017-06-08] MEDS ORDERED: SODIUM CHLOR 0.9% 1000 ML INJ 1,000 ML IV PRN (09:03)
[2017-06-08] MEDS ORDERED: SODIUM CHLOR 0.9% 1000 ML INJ 1,000 ML OTHER PRN ×2 (09:03)
[2017-06-08] MEDS ORDERED: GELATIN 12 MM/7 MM FOAM TOP PRN (09:15)
[2017-06-08] MEDS ORDERED: ONDANSETRON HCL 4 MG/2 ML VIAL IV PUSH PRN (09:15)
[2017-06-08] MEDS ORDERED: GENTAMICIN SULFATE 20 MG/2 ML VIAL OTHER PRN (09:15)
[2017-06-08] MEDS ORDERED: SODIUM CHLORIDE 0.9% FLUSH 10 ML FLUSH IV FLUSH PRN (09:15)
[2017-06-08] MEDS ORDERED: ACETAMINOPHEN 325 MG TAB PO PRN (09:15)
[2017-06-08] MEDS ORDERED: HEPARIN SODIUM - IV 10,000 UNITS/10 ML VIAL IV FLUSH PRN (09:15)
[2017-06-08] MEDS ORDERED: NITROGLYCERIN 0.4 MG SL 25 TABS/BTL SL PRN (09:15)
[2017-06-08] MEDS ORDERED: MANNITOL 12.5 GM/50 ML VIAL IV PRN (09:15)
[2017-06-08] MEDS ORDERED: ALBUMIN 25% INJ 100 ML IV PRN (09:15)
[2017-06-08] MEDS ORDERED: diphenhydrAMINE HCL 25 MG CAP PO PRN (09:15)
[2017-06-08] MEDS ORDERED: HEPARIN SODIUM - IV 10,000 UNITS/10 ML VIAL PRN (09:15)
--- NOTE | 2017-06-08 09:30 | PD.CONS ---
HPI Service Nephrology Consult Requested By Reason for Consult ESRD on HD Primary Care Physician Unknown History of Present Illness This is an 82 y/o female readmitted yesterday for abdominal pain with constipation, lethargy, fall in the bathroom after discharge last Wednesday. She was previously admitted 05/25 until 06/05 for shortness of breath. PMH of HTN, ESRD on HD TTS, lung cancer, metabolic bone disorder. She also has a hx of lung cancer, recent PET scan showed hypermetabolic activity suggesting reoccurrence of cancer s/p radiation treatments. During her last admission she had a bronchoscopy with biopsies taken, they were negative for malignant cells, and she had felt better at the time of discharge. On exam she is rocking back and forth in pain, not able to answer questions. She has been seen by GI and has orders for GoLytely and fleet enema if she has not passed a BM. Dialysis is TTS , she had treatment on Wednesday prior to discharge. The had expressed that his has not been doing well, has become tired and due to frequent medical issues recently, had requested palliative care evaluation to discuss goals and introduce options moving forward. We attempted to dialyze the patient, but she is restless, moaning, unable to follow commands, hold still, therefore we are unable to dialyze her. (Milana Sandoval) Review of Systems ROS Limitations: Clinical Condition, Intubated, Altered Mental Status, Uncooperative, Combative Gastrointestinal: COMPLAINS OF: Abdominal pain, Constipation (Milana Sandoval) Past Family Social History Allergies: Coded Allergies: diatrizoate meglumine (Verified Allergy, Severe, Hives, 05/25/17) gadobenic acid (Verified Allergy, Severe, Hives, 05/25/17) gadodiamide (Verified Allergy, Severe, Hives, 05/25/17) gadoteridol (Verified Allergy, Severe, Hives, 05/25/17) iodixanol (Verified Allergy, Severe, Hives, 05/25/17) iohexol (Verified Allergy, Severe, Hives, 05/25/17) metronidazole (Verified Allergy, Severe, DIFFICULTY BREATHING, EXTREME NAUSEA, VOMITING, 05/25/17) cholestyramine (Verified Adverse Reaction, Intermediate, STOMACH UPSET, 12/02) codeine (Verified Adverse Reaction, Intermediate, UPSET STOMACH, 05/25/17) colesevelam (Verified Adverse Reaction, Intermediate, STOMACH UPSET, ) gemfibrozil (Verified Adverse Reaction, Intermediate, STOMACH UPSET, ) levofloxacin (Verified Adverse Reaction, Intermediate, Nausea/Vomiting, 12/02) patient said it gave her extreme anxiety also. lorazepam (Verified Adverse Reaction, Intermediate, STOMACH UPSET, 05/25/17 ) lovastatin (Verified Adverse Reaction, Intermediate, STOMACH UPSET, ) propoxyphene (Verified Adverse Reaction, Intermediate, UPSET STOMACH, 05/25) Past Medical History End-stage renal disease on HD TTS Lung Cancer, recurrent, to start radiation therapy in upcoming month or two Hypertension Dyslipidemia Diabetes type 2 COPD CHF, EF 60% from Jan 2016 GERD Depression Hypothyroidism anemia Past Surgical History cholecystectomy Left wrist surgery Colon resection hernia repair Lysis of adhesions AVF left arm bronchoscopy Reported Medications Zofran Odt (Ondansetron Odt) 4 Mg Tab 4 Mg SL Q6HR PRN Atorvastatin (Atorvastatin Calcium) 20 Mg Tab 20 Mg PO HS Oxygen tank (Oxygen) 1 Ea Tank 2 Liter CLEMENTE.CANULA CONTINUOUS Oxygen Concentrator Portable Gaseous 2 L/min via Nasal Cannula Continuous For 99 months Reported Nifedipine ER (Nifedipine) 90 Mg Tab 90 Mg PO DAILY Omeprazole 40 Mg Cap 40 Mg PO DAILY Sucralfate 1 Gm Tab 1 Gm PO TID on empty stomach Losartan (Losartan Potassium) 100 Mg Tab 100 Mg PO DAILY Levothyroxine (Levothyroxine Sodium) 100 Mcg Tab 100 Mcg PO DAILY Flonase Nasal Royal (Fluticasone Nasal Royal) 50 Mcg/Act Royal 2 Royal EACH NARE DAILY PRN Centrum Silver Adult 50+ (Multiple Vitamins W/ Minerals) 1 Tab Tab 1 Tab PO AC LUNCH Senna S (Sennosides-Docusate Sodium) 8.6-50 Mg Tab 4 Tab PO HS Lutein 20 Mg Cap 20 Mg PO DAILY Fluoxetine (Fluoxetine HCl) 20 Mg Tab 20 Mg PO HS Catapres (Clonidine) 0.2 Mg Tab 0.2 Mg PO Q8HR Calcitriol 0.25 Mcg Cap 0.25 Mcg PO DAILY Aspirin Adult Low Strength (Aspirin) 81 Mg Tabdr 81 Mg PO DAILY Ventolin Hfa 18 GM Inh (Albuterol Sulfate) 90 Mcg/Act Aer 2 Puff INH Q4H PRN Metoprolol Succinate ER 24 HR (Metoprolol Succinate) 25 Mg Tab 25 Mg PO DAILY Active Ordered Medications Current Medications Medications (Trade) Dose Ordered Sig/Raheel Route Start Time Stop Time Status Last Admin (NS Flush) 2 ml UNSCH PRN IV FLUSH 06/07/17 10:15 (NS Flush) 2 ml BID IV FLUSH 06/07/17 21:00 06/08/17 08:45 (Tylenol) 650 mg Q4H PRN PO 06/07/17 10:15 (Zofran Inj) 4 mg Q6H PRN IVP 06/07/17 10:15 (Heparin Inj) 5,000 units Q12H SQ 06/07/17 11:00 06/08/17 00:00 (Narcan Inj) 0.4 mg UNSCH PRN IV PUSH 06/07/17 10:15 (Irma-Colace) 1 tab BID PO 06/07/17 21:00 06/08/17 08:46 (Milk Of Magnesia Liq) 30 ml Q12H PRN PO 06/07/17 10:15 (Senokot) 17.2 mg Q12H PRN PO 06/07/17 10:15 (Dulcolax Supp) 10 mg DAILY PRN RECTAL 06/07/17 10:15 (Lactulose Liq) 30 ml DAILY PRN PO 06/07/17 10:15 (Catapres) 0.1 mg Q6H PRN PO 06/07/17 10:15 (Fleets Enema (Adult)) 133 ml UNSCH PRN RECTAL 06/07/17 18:00 06/07/17 18:30 Sodium Chloride 1,000 ml @ 100 mls/hr Q10H IV 06/07/17 18:00 06/07/17 18:42 (Morphine Inj) 4 mg Q3H PRN IV 06/07/17 23:45 06/08/17 08:58 Family History Non contributory Social History , lives locally with spouse former smoker, denies ETOH ambulatory oxygen continuous (Milana Sandoval) Physical Exam Vital Signs Vital Signs Date Time Temp Pulse Resp B/P (MAP) Pulse Ox O2 Delivery O2 Flow Rate FiO2 06/08/17 07:50 97.5 86 19 158/109 (125) 97 06/08/17 04:00 98.1 85 24 187/84 (118) 94 06/08/17 00:00 98.0 82 22 143/82 (102) 96 06/07/17 20:00 97.2 77 24 121/75 (90) 100 06/07/17 16:00 97.9 71 21 148/76 (100) 95 06/07/17 15:00 98.1 76 16 186/86 (119) 97 Nasal Cannula 2.00 06/07/17 15:00 98.1 76 18 186/86 (119) 98 Nasal Cannula 2.00 06/07/17 13:00 66 19 150/80 (103) 99 Nasal Cannula 2.00 06/07/17 10:30 76 21 218/106 (143) 95 Nasal Cannula 2.00 Physical Exam Elderly female, appears chronically ill, agitated, restless, moaning awake, not following commands, periorbital edema S1/S2, RRR no murmurs lungs with rhonchi and rales throughout, no wheezing or coughing during exam abdomen distended, round, but soft and non tender; normal BS, had BM today ext: no edema; LUE AVF, thrill and bruit Laboratory Laboratory Tests Test 06/08/17 01:01 Lactic Acid Level 0.4 Date/Time Source Procedure Growth Status 06/07/17 06:45 Blood Peripheral Aerobic Blood Culture Pending Received 06/07/17 06:45 Blood Peripheral Anaerobic Blood Culture Pending Received (Milana Sandoval) Result Diagram: 06/07/1764406/07/17644 Imaging Last [address] 06/07/17609 Signed Impressions: Service Date/Time: Wednesday, June 07, 2017 09:38 - CONCLUSION: 1. No acute hemorrhage or mass effect. 2. Suboptimal study secondary to motion artifact. Hussain Zamorano MD Chest X-Ray 06/07/17609 Signed Impressions: Service Date/Time: Wednesday, June 07, 2017 06:23 - CONCLUSION: 1. Multifocal lung consolidation similar to June 06. Sebastien Hastings MD Abdomen/Pelvis CT 06/07/17609 Signed Impressions: Service Date/Time: Wednesday, June 07, 2017 09:41 - CONCLUSION: 1. Livingston catheter in place with the balloon just below the bladder base. There is a moderate amount of urine in the bladder which is otherwise unremarkable. This could be advanced. 2. Nonspecific bowel gas pattern with moderate to large amount of stool in distal colon which could indicate constipation. Findings may represent ileus and/or gastroenteritis. 3. Small bilateral pleural effusions. Hussain Zamorano MD (Milana Sandoval) Assessment and Plan Problem List: (1) End stage renal disease on dialysis ICD Codes: N18.6 - End stage renal disease; Z99.2 - Dependence on renal dialysis Status: Chronic Plan: HD is normally on TTS, scheduled today However she is in severe pain, unable to hold still, not safe to perform HD at this time. We will speak with the regarding options moving forward. Stop IVF infusing High protein diet encouraged if able to eat Hold phosphorus binders AVF is patent, protect that extremity Palliative care has evaluated. The children are in route from out of town, no decision to be made until then. Code status remains full at this time. (2) Pain, abdominal ICD Codes: R10.9 - Unspecified abdominal pain Plan: Possibly due to constipation, she has had several BMs per nursing GI has evaluated Imaging noted (3) Small cell lung cancer ICD Codes: C34.90 - Malignant neoplasm of unspecified part of unspecified bronchus or lung Status: Acute Plan: Currently not undergoing treatment Palliative care has been consulted to discuss goals. (4) HTN (hypertension) ICD Codes: I10 - Essential (primary) hypertension Status: Acute Plan: Resume home medications, titrate as needed (5) PNA (pneumonia) ICD Codes: J18.9 - Pneumonia, unspecified organism Status: Acute Plan: CXR showing consolidation Given Zithromax and Rocephin (Milana Sandoval) Assessment and Plan patient was seen and examined. She appears to be in pain, unable to hold still. Overall, she has very poor prognosis. Has lung cancer, poor functional status. I discussed with patient's yesterday and again today. I have suggested palliative care/hospice. Patient's children are on their way. In the meantime, we will continue to follow, if her situation improves, and if she requests continued dialysis support, we will continue dialysis support. (Gt Trejo MD) Problem Qualifiers (1) PNA (pneumonia): Qualified Codes: J18.9 - Pneumonia, unspecified organism Milana Sandoval SCIENTIFIC PROGRAMMER ANALYST Jun 08, 2017 09:30 Gt Trejo MD Jun 08, 2017 14:37
[2017-06-08] MEDS: HEPARIN SODIUM - SQ 10,000 UNITS/ML VIAL SQ SCH ×3 (11:00→21:19)
--- NOTE | 2017-06-08 11:20 | HHI.GIFU ---
Subjective Remarks eyes closed, lying on Rt. Side and moaning Non verbal for symptoms for now. Abdomen distended, soft, +BS afebrile (Sabina Horta MD) Objective Vitals I&O Vital Signs Date Time Temp Pulse Resp B/P (MAP) Pulse Ox O2 Delivery O2 Flow Rate FiO2 06/08/17 07:50 97.5 86 19 158/109 (125) 97 06/08/17 04:00 98.1 85 24 187/84 (118) 94 06/08/17 00:00 98.0 82 22 143/82 (102) 96 06/07/17 20:00 97.2 77 24 121/75 (90) 100 06/07/17 16:00 97.9 71 21 148/76 (100) 95 06/07/17 15:00 98.1 76 16 186/86 (119) 97 Nasal Cannula 2.00 06/07/17 15:00 98.1 76 18 186/86 (119) 98 Nasal Cannula 2.00 06/07/17 13:00 66 19 150/80 (103) 99 Nasal Cannula 2.00 I/O 06/07/17 06/07/17 06/07/17 06/08/17 06/08/17 06/08/17 07:00 15:00 23:00 07:00 15:00 23:00 Intake Total 350 ml Output Total 450 ml Balance 350 ml -450 ml Intake IV Total 350 ml Output Urine Total 450 ml # Bowel Movements 2 5 Laboratory Laboratory Tests Test 06/08/17 01:01 Lactic Acid Level 0.4 Date/Time Source Procedure Growth Status 06/07/17 06:50 Blood Peripheral Aerobic Blood Culture - Preliminary NO GROWTH IN 1 DAY Resulted 06/07/17 06:50 Blood Peripheral Anaerobic Blood Culture - Preliminary NO GROWTH IN 1 DAY Resulted Physical Exam HEENT: Pupils round and reactive to light; normocephalic; atraumatic; no jaundice. Throat is clear. NECK: Neck is supple, no JVD, no lymphadenopathy. CHEST: Chest is clear to auscultation and percussion. CARDIAC: Regular rate and rhythm with no murmur gallop or rubs. ABDOMEN: Soft, nondistended, nontender; no hepatosplenomegaly; bowel sounds are present in all four quadrants. EXTREMITIES: No clubbing, cyanosis, or edema. SKIN: Normal; no rash; no jaundice. 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 (Leyla Leonard) Assessment and Plan Plan ASSESSMENT - abd pain - could be 2/2 constipation , CT showed stool distal colon and ileus vs gastroenteritis EGD colonoscopy 2015 unremarkable. 06/08/17, unable to tolerate Golytely. Spoke with GELA Mckinney and Hospitalist today,. Abdominal distention. HGB 12.1, WBC count, 11.2. PLAN - consider colonoscopy - further recs to follow pt seen by myself and Dr Izaguirre and this note is on his behalf (Leyla Leonard) Leyla Leonard Jun 08, 2017 11:20 Sabina Horta MD Jun 08, 2017 11:54
[2017-06-08 11:35] VITALS: BP 196/88; PULSE 84; RESP 18; TEMP 97.6; O2SAT 99
[2017-06-08] MEDS ORDERED: SODIUM CHLORIDE 0.9% 10 ML VIAL IV ONE (12:00)
[2017-06-08] MEDS ORDERED: PROPOFOL 200 MG/20 ML AMP IV ONE (12:00)
--- NOTE | 2017-06-08 12:06 | HHI.GIFU ---
Subjective Remarks patient lying on Rt. Side , moaning Not answering questions for now. Family in rm. Abdominal distention+, soft, (Leyla Leonard) Objective Vitals I&O Vital Signs Date Time Temp Pulse Resp B/P (MAP) Pulse Ox O2 Delivery O2 Flow Rate FiO2 06/08/17 11:35 97.6 84 18 196/88 (124) 99 06/08/17 07:50 97.5 86 19 158/109 (125) 97 06/08/17 04:00 98.1 85 24 187/84 (118) 94 06/08/17 00:00 98.0 82 22 143/82 (102) 96 06/07/17 20:00 97.2 77 24 121/75 (90) 100 06/07/17 16:00 97.9 71 21 148/76 (100) 95 06/07/17 15:00 98.1 76 16 186/86 (119) 97 Nasal Cannula 2.00 06/07/17 15:00 98.1 76 18 186/86 (119) 98 Nasal Cannula 2.00 06/07/17 13:00 66 19 150/80 (103) 99 Nasal Cannula 2.00 I/O 06/07/17 06/07/17 06/07/17 06/08/17 06/08/17 06/08/17 07:00 15:00 23:00 07:00 15:00 23:00 Intake Total 350 ml Output Total 450 ml Balance 350 ml -450 ml Intake IV Total 350 ml Output Urine Total 450 ml # Bowel Movements 2 5 Laboratory Laboratory Tests Test 06/08/17 01:01 Lactic Acid Level 0.4 Date/Time Source Procedure Growth Status 06/07/17 06:50 Blood Peripheral Aerobic Blood Culture - Preliminary NO GROWTH IN 1 DAY Resulted 06/07/17 06:50 Blood Peripheral Anaerobic Blood Culture - Preliminary NO GROWTH IN 1 DAY Resulted Imaging Last Impressions Head CT 06/07/17 06 Signed Impressions: Service Date/Time: Wednesday, June 07, 2017 09:38 - CONCLUSION: 1. No acute hemorrhage or mass effect. 2. Suboptimal study secondary to motion artifact. Hussain Zamorano MD Chest X-Ray 06/07/17609 Signed Impressions: Service Date/Time: Wednesday, June 07, 2017 06:23 - CONCLUSION: 1. Multifocal lung consolidation similar to June 06. Sebastien Hastings MD Abdomen/Pelvis CT 06/07/17 0610 Signed Impressions: Service Date/Time: Wednesday, June 07, 2017 09:41 - CONCLUSION: 1. Livingston catheter in place with the balloon just below the bladder base. There is a moderate amount of urine in the bladder which is otherwise unremarkable. This could be advanced. 2. Nonspecific bowel gas pattern with moderate to large amount of stool in distal colon which could indicate constipation. Findings may represent ileus and/or gastroenteritis. 3. Small bilateral pleural effusions. Hussain Zamorano MD Physical Exam HEENT: normocephalic; atraumatic; no jaundice. moaning NECK: Neck is supple, CHEST: No audible wheezing or rhonchi CARDIAC: S1-S2, regular ABDOMEN: Soft, moderate amount of distention, diffuse tenderness to light palpation and moaning bowel sounds are present in all four quadrants. EXTREMITIES: No lower extremity edema. SKIN: Pale thin skin turgor no rash; no jaundice. GEOSPATIAL SPECIALIST: Nonverbal , moaning as if to be in pain (Leyla Leonard) Assessment and Plan Plan ASSESSMENT - abd pain - could be 2/2 constipation , CT showed stool distal colon and ileus vs gastroenteritis EGD colonoscopy 2016 unremarkable. 06/08/17, unable to tolerate Golytely. Spoke with GELA Mckinney and Hospitalist Dr. Campbell today,. Abdominal distention. HGB 12.1, WBC count, 11.2., Dr. Araujo in for surgical evaluation. No surgical plans for now, will await GI follow-up for now Spoke with family members who states that her usual status is up ambulatory and takes care of herself. Patient was recently discharged from hospital and showed back up 24 hours later with distended abdomen. CT scan shows large amount of stool PLAN - decompressive sigmoidoscopy today, late pm. -Fleets enemas X 2 this pm, Spoke to nurse for plan of care. -Monitor labs - Supportive care - further recs to follow pt seen by myself and Dr Izaguirre and this note is on his behalf (Leyla Leonard) Physician Comments Patient seen and examined Agree with above Continue with current supportive care Monitor lab Sigmoidoscopy today (Isaac Izaguirre MD) Leyla Leonard Jun 08, 2017 12:06 Isaac Izaguirre MD Jun 08, 2017 20:34
[2017-06-08] MEDS ORDERED: SOD PHOSPHATE/SOD BIPHOSPHATE (ADULT) ENEMA 133ML RECTAL ONE ×2 (12:30→13:00)
--- NOTE | 2017-06-08 13:03 | HHI.HCPN ---
Reason for visit a. To assist with evaluation and management of symptoms including: abdominal pain, dyspnea, confusion b. To assist medical decision maker(s) with: better understanding of current medical conditions; weighing benefits/burdens of medical treatment options; making medical treatment decisions. Subjective/Interval History Patient seen to follow-up symptoms of abdominal pain, dyspnea, confusion. This is a thin, elderly female lying in bed moaning, thrashing, holding her stomach. She is unable to verbalize her complaints other than moaning and thrashing. She was unable to undergo dialysis today due to her uncontrolled movements and inability to follow direction. Her abdomen is tender to light palpation. Abdomen/pelvis CT shows moderate to large amount of stool in the distal colon possibly indicating constipation/ileus/gastroenteritis. The reports that since her discharge from the hospital she has been straining to have bowel movements and per the 's report, had to manually move a "large ball" in her intestines to allow liquid stool to pass. She has been worked up in the past by Dr. Leida Galan for possible rectal prolapse. Her altered mental status started at approximately that time. She was unable to tolerate GoLYTELY to undergo colonoscopy. She has had Irma- Colace twice daily since admission and both fleets and soapsuds enemas without significant results. Spoke with Dr. Campbell and GELA Ragsdale and plan is to undergo decompressive colonoscopy today after undergoing 2 more fleets enemas. She remains dyspneic and intermittently tachypneic on nasal cannula oxygen at 2 L. Respirations are limited in depth, with no accessory muscle use, symmetric expansion. She does have a known history of lung cancer and is status post stereotactic radiation. Chest x-ray shows multifocal lung consolidation. During her last admission 05/25-06/05 she was diagnosed and treated for pneumonia , tracheobronchitis and COPD exacerbation. Her reports that when she left the hospital her last admission she was at her baseline mentation but later that night became confused and has remained so since. She is exhibiting garbled, nonsensical speech when she does speak. At her baseline condition she has no confusion and is independent in her daily activities. Currently she is complete care. . Family/friend interactions Spoke with the and son at bedside. They are awaiting the arrival of the remainder of the children who are in transit. They state that she moaned all night and that their goal at this point is to see her suffering relieved. They would like to initially rule out constipation as a cause of her discomfort prior to making any further code decisions. As she is scheduled for this afternoon to undergo decompressive colonoscopy, they are hoping that tomorrow brings some symptom relief. If not they will likely reconsider further aggressive measures. . Advance Directives Living Will: Completed, but not made available Health Care Surrogate: Completed, but not made available Advance Directive Specifics Health Care Surrogate(s): No healthcare surrogate form available. By [place] statutes, the would be the legal proxy decision-maker. . Documented care wishes: No living will available. . Significant change in goals: No significant change in goals at this time. . Objective Vital Signs Date Time Temp Pulse Resp B/P (MAP) Pulse Ox O2 Delivery O2 Flow Rate FiO2 06/08/17 11:35 97.6 84 18 196/88 (124) 99 06/08/17 07:50 97.5 86 19 158/109 (125) 97 06/08/17 04:00 98.1 85 24 187/84 (118) 94 06/08/17 00:00 98.0 82 22 143/82 (102) 96 06/07/17 20:00 97.2 77 24 121/75 (90) 100 06/07/17 16:00 97.9 71 21 148/76 (100) 95 06/07/17 15:00 98.1 76 16 186/86 (119) 97 Nasal Cannula 2.00 06/07/17 15:00 98.1 76 18 186/86 (119) 98 Nasal Cannula 2.00 06/07/17 13:00 66 19 150/80 (103) 99 Nasal Cannula 2.00 Intake & Output 06/08/17 06/08/17 07:00 19:00 Output Total 450 ml Balance -450 ml Output Urine Total 450 ml # Bowel Movements 7 . Physical Exam CONSTITUTIONAL/GENERAL: This is a thin, elderly patient, moaning at times, facial grimace at times. TUBES/LINES/DRAINS:PIV right upper extremity, NC O2, oliveros catheter . SKIN: No jaundice, rashes, or lesions. Multiple areas ecchymoses on upper extremities, and across abdomen. No wounds seen anteriorly. Skin warm/dry. CARDIOVASCULAR: Regular rate and rhythm, S1, S2, 2/6 systolic ejection murmur heard at left sternal border. No JVD. Peripheral pulses symmetric. No peripheral edema. RESPIRATORY/CHEST: Symmetric, unlabored respirations. Clear, diminished to auscultation, rare wheeze. Breath sounds equal bilaterally. GASTROINTESTINAL: Abdomen soft, tender to palpation in all 4 quadrants, hypoactive bowel sounds 4. GENITOURINARY: Without palpable bladder distension. Oliveros catheter in place clear yellow urine. MUSCULOSKELETAL: Extremities without clubbing, cyanosis, or edema. No joint tenderness or effusion noted. LYMPHATICS: No palpable cervical or supraclavicular adenopathy. NEUROLOGICAL: Lethargic. Mostly groaning nonsensical speech. Does not answer any questions. Does not follow my commands. Does move all 4 extremities. Not interacting with family today. PSYCHIATRIC: + Moaning, restless, thrashing . Diagnostic Tests Laboratory Laboratory Tests Test 06/07/17 06:45 06/08/17 01:01 White Blood Count 11.2 TH/MM3 (4.0-11.0) Red Blood Count 3.84 MIL/MM3 (4.00-5.30) Hemoglobin 12.1 GM/DL (11.6-15.3) Hematocrit 37.8 % (35.0-46.0) Mean Corpuscular Volume 98.5 FL (80.0-100.0) Mean Corpuscular Hemoglobin 31.6 PG (27.0-34.0) Mean Corpuscular Hemoglobin Concent 32.1 % (32.0-36.0) Red Cell Distribution Width 17.5 % (11.6-17.2) Platelet Count 185 TH/MM3 (150-450) Mean Platelet Volume 8.6 FL (7.0-11.0) Neutrophils (%) (Auto) 83.6 % (16.0-70.0) Lymphocytes (%) (Auto) 6.5 % (9.0-44.0) Monocytes (%) (Auto) 8.1 % (0.0-8.0) Eosinophils (%) (Auto) 1.0 % (0.0-4.0) Basophils (%) (Auto) 0.8 % (0.0-2.0) Neutrophils # (Auto) 9.4 TH/MM3 (1.8-7.7) Lymphocytes # (Auto) 0.7 TH/MM3 (1.0-4.8) Monocytes # (Auto) 0.9 TH/MM3 (0-0.9) Eosinophils # (Auto) 0.1 TH/MM3 (0-0.4) Basophils # (Auto) 0.1 TH/MM3 (0-0.2) CBC Comment DIFF FINAL Differential Comment Prothrombin Time 10.7 SEC (9.8-11.6) Prothromb Time International Ratio 1.1 RATIO Activated Partial Thromboplast Time 23.4 SEC (24.3-30.1) Urine Color YELLOW (YELLW/STRAW) Urine Turbidity CLEAR (CLEAR) Urine pH 8.0 (5.0-8.5) Urine Specific [place] 1.008 (1.002-1.035) Urine Protein 100 mg/dL (NEG-TRACE) Urine Glucose (UA) NEG mg/dL (NEG) Urine Ketones NEG mg/dL (NEG) Urine Occult Blood SMALL (NEG) Urine Nitrite NEG (NEG) Urine Bilirubin NEG (NEG) Urine Urobilinogen LESS THAN 2.0 MG/DL (LESS Urine Leukocyte Esterase NEG (NEG) Urine RBC 7 /hpf (0-3) Urine WBC 3 /hpf (0-5) Urine Squamous Epithelial Cells <1 /hpf (0-5) Urine Transitional Epithelial Cells <1 /hpf (NONE) Microscopic Urinalysis Comment CULT NOT INDICATED Blood Urea Nitrogen 32 MG/DL (7-18) Creatinine 3.06 MG/DL (0.50-1.00) Random Glucose 84 MG/DL (74-106) Total Protein 6.1 GM/DL (6.4-8.2) Albumin 2.5 GM/DL (3.4-5.0) Calcium Level 9.2 MG/DL (8.5-10.1) Phosphorus Level 1.1 MG/DL (2.5-4.9) Magnesium Level 2.2 MG/DL (1.5-2.5) Alkaline Phosphatase 81 U/L (45-117) Aspartate Amino Transf (AST/SGOT) 19 U/L (15-37) Alanine Aminotransferase (ALT/SGPT) 16 U/L (10-53) Total Bilirubin 0.5 MG/DL (0.2-1.0) Sodium Level 136 MEQ/L (136-145) Potassium Level 4.1 MEQ/L (3.5-5.1) Chloride Level 98 MEQ/L (98-107) Carbon Dioxide Level 26.6 MEQ/L (21.0-32.0) Anion Gap 11 MEQ/L (5-15) Estimat Glomerular Filtration Rate 15 ML/MIN (>89) Total Creatine Kinase 28 U/L (26-192) Troponin I 0.04 NG/ML (0.02-0.05) Lipase 192 U/L (73-393) Thyroid Stimulating Hormone 3rd Gen 6.300 uIU/ML (0.358-3.740) Lactic Acid Level 0.4 mmol/L (0.4-2.0) Result Diagram: 06/07/1764406/07/17644 Microbiology Microbiology Date/Time Source Procedure Growth Status 06/07/17 06:50 Blood Peripheral Aerobic Blood Culture - Preliminary NO GROWTH IN 1 DAY Resulted 06/07/17 06:50 Blood Peripheral Anaerobic Blood Culture - Preliminary NO GROWTH IN 1 DAY Resulted 06/07/17 06:45 Blood Peripheral Aerobic Blood Culture - Preliminary NO GROWTH IN 1 DAY Resulted 06/07/17 06:45 Blood Peripheral Anaerobic Blood Culture - Preliminary NO GROWTH IN 1 DAY Resulted Imaging Last Impressions Head CT 06/07/17609 Signed Impressions: Service Date/Time: Wednesday, June 07, 2017 09:38 - CONCLUSION: 1. No acute hemorrhage or mass effect. 2. Suboptimal study secondary to motion artifact. Hussain Zamorano MD Chest X-Ray 06/07/17609 Signed Impressions: Service Date/Time: Wednesday, June 07, 2017 06:23 - CONCLUSION: 1. Multifocal lung consolidation similar to June 06. Sebastien Hastings MD Abdomen/Pelvis CT 06/07/17609 Signed Impressions: Service Date/Time: Wednesday, June 07, 2017 09:41 - CONCLUSION: 1. Oliveros catheter in place with the balloon just below the bladder base. There is a moderate amount of urine in the bladder which is otherwise unremarkable. This could be advanced. 2. Nonspecific bowel gas pattern with moderate to large amount of stool in distal colon which could indicate constipation. Findings may represent ileus and/or gastroenteritis. 3. Small bilateral pleural effusions. Hussain Zamorano MD . Assessment and Plan Disease Oriented Problem List: (1) Pneumonia (2) Small cell lung cancer (3) HTN (hypertension) (4) Intractable abdominal pain (5) Anemia due to chronic kidney disease (6) End stage renal disease on dialysis Symptom Scale: (1) Dyspnea 0-10 Scale: Unable to quantify (2) Pain, abdominal 0-10 Scale: Unable to quantify Pertinent Non-Medical Issues Psychosocial:Lives at home with her spouse of 30+ years. has 2 sons, 2 daughters who live out of state. Retired. 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 She may regain ability to participate if her clinical condition improves. indicates he is designated healthcare surrogate he indicates she does have documentation of this. In absence of documentation he would be appropriate legal proxy per [place] statutes. Ethical issues impacting care: No ethical issues identified Important Contacts Ru Calderon, spouse, [phone] . Prognosis this pt was admitted for AMS, pain 06/07; following recent hospitalization 05/25- for pneumonia, hemoptysis. CT abdomen = possible ileus vs constipation vs gastroenteritis. Hx underlying ESRD on HD, NSCLC. Prognosis guarded, high risk for clinical decline due to multiple chronic medical conditions, and advanced age. . Code Status: Full Code Plan Mildly tachypneic * Legal decision maker:Patient is currently unable to participate in decision- making. She may regain ability to participate if her clinical condition improves. indicates he is designated healthcare surrogate he indicates she does have documentation of this. In absence of documentation he would be appropriate legal proxy per [place] statutes. * Goals: is in agreement with proceeding with GI workup as this may provide relief of some of her symptoms. He does want to limit possible further aggressive/invasive measures that may not improve her quality of life he wishes to have ongoing conversations with providers once their adult children are in town. Palliative plans to follow-up with him tomorrow, he expects their 4 adult children to be arriving throughout the evening tonight. * CODE STATUS: Full code by default; though considering DNR once children arrive * SYMPTOMS: --dyspnea- hx COPD, +pneumonia, on/off 02 at home. currently on nasal cannula , mildly tachypneic --abdominal pain- presented w severe abdominal pain. Apparently just d/c the day before presentation, one of her issues at d/c was constipation. reports having loose BMs at home, but requiring manual movement of a "large ball " by patient in order to allow liquid stool to pass. denies blood in stool, black stool. Plan for decompressive colonoscopy this afternoon. CT abdomen = possible ileus vs constipation vs gastroenteritis. Earlier received some PRN morphine, hydromorphone, still intermittently moaning in pain. Cautious use of opiates given AMS at presentation, hx ESRD, opiate michael. Consider PRN hydromorphone 0.25 mg to 0.5 mg every 3-4 PRN pain. If this is in fact ileus may consider using Relistor to not worsen. --Confusion -at this time her speech is garbled, she is unable to make her needs known, not responding to commands. Her baseline is oriented and independent. The confusion began the night after her discharge from the hospital, UA negative, mild leukocytosis, significant change in her TSH noted from 05/26 where level was 0.653 and 12 days later, TSH reading 6.300, no other notable metabolic derangements. Would consider verifying TSH level due to such a significant change in such a short time. * Palliative care will continue to follow during hospital course as condition evolves, to assist patient/decision-maker with understanding of medical conditions, weighing benefits/burdens of treatment options, for clarification of goals of treatment. Additionally will assist with any symptoms of palliative concern . Attestation To help prompt me to consider important information that might be impacting today's encounter and assessment, information from prior notes written by myself or my colleagues may have been "brought forward" into today's note. My signature on this note, however, is an attestation that I personally performed the exam, history, and/or decision-making noted today, and, unless otherwise indicated, the interactions with patient, family, and staff as well as the review of records all occurred today. I also attest that the listed assessment and stated plan reflect my best clinical judgment today based on the combination of historical information, prior notes, and today's exam/ interactions. When time spent is documented, it refers only to time spent today by the signer, or if indicated, combined time spent today by collaborating physician/nurse practitioner. . Lola Landis Jun 08, 2017 13:03
--- NOTE | 2017-06-08 15:08 | PD.CONS ---
cc: Oswald Araujo MD HPI Service General Surgery Consult Requested By Dr. Campbell Reason for Consult constipation; abdominal pain Primary Care Physician Unknown History of Present Illness This is an 82 year old female with a past medical history of ESRD on hemodialysis, GERD, hypertension, COPD, lung cancer and hypothyroidism. She was recently admitted on May 25 for shortness of breath and pneumonia. The patient was discharged home Wednesday. She has been complaining of constipation and was referred to Dr. Galan. Her appointment was yesterday but came back to the hospital after she became profoundly weak and fell at home. Per family reports, she hit her head. A CT head was done which was negative for any acute process. The patient was complaining of abdominal pain. A CT abdomen/pelvis was done which shows a very large amount of stool in her distal colon. She was given several enemas last night with several bowel movements of liquid stool. She remains distended. Her dialysis has been put on hold for today. A General Surgery consultation has been requested. Review of Systems ROS Limitations: Clinical Condition, Altered Mental Status, Uncooperative Past Family Social History Past Medical History ESRD GERD Hypertension COPD lung cancer CHF Hypothyroidism Past Surgical History AV fistula laparoscopic cholecystectomy LEFT carpal tunnel release Colon Resection ---secondary to SBO likely due to scar tissue Appendectomy inguinal hernia repair Tubal ligation Reported Medications Albuterol Atorvastatin Catapres Metoprolol Nifedipine Losartan Aspirin Fluoxetine Flonase Senna Zofran Sucralfate Omeprazole Levothyroxine Calcitriol Multiple Vitamin Lutein Allergies: Coded Allergies: diatrizoate meglumine (Verified Allergy, Severe, Hives, 05/25/17) gadobenic acid (Verified Allergy, Severe, Hives, 05/25/17) gadodiamide (Verified Allergy, Severe, Hives, 05/25/17) gadoteridol (Verified Allergy, Severe, Hives, 05/25/17) iodixanol (Verified Allergy, Severe, Hives, 05/25/17) iohexol (Verified Allergy, Severe, Hives, 05/25/17) metronidazole (Verified Allergy, Severe, DIFFICULTY BREATHING, EXTREME NAUSEA, VOMITING, 05/25/17) cholestyramine (Verified Adverse Reaction, Intermediate, STOMACH UPSET, 12/02) codeine (Verified Adverse Reaction, Intermediate, UPSET STOMACH, 05/25/17) colesevelam (Verified Adverse Reaction, Intermediate, STOMACH UPSET, ) gemfibrozil (Verified Adverse Reaction, Intermediate, STOMACH UPSET, ) levofloxacin (Verified Adverse Reaction, Intermediate, Nausea/Vomiting, 12/02) patient said it gave her extreme anxiety also. lorazepam (Verified Adverse Reaction, Intermediate, STOMACH UPSET, 05/25/17 ) lovastatin (Verified Adverse Reaction, Intermediate, STOMACH UPSET, ) propoxyphene (Verified Adverse Reaction, Intermediate, UPSET STOMACH, 05/25) Active Ordered Medications Current Medications Medications (Trade) Dose Ordered Sig/Raheel Route Start Time Stop Time Status Last Admin (NS Flush) 2 ml UNSCH PRN IV FLUSH 06/07/17 10:15 (NS Flush) 2 ml BID IV FLUSH 06/07/17 21:00 06/08/17 08:45 (Tylenol) 650 mg Q4H PRN PO 06/07/17 10:15 (Zofran Inj) 4 mg Q6H PRN IVP 06/07/17 10:15 (Heparin Inj) 5,000 units Q12H SQ 06/07/17 11:00 06/08/17 00:00 (Narcan Inj) 0.4 mg UNSCH PRN IV PUSH 06/07/17 10:15 (Irma-Colace) 1 tab BID PO 06/07/17 21:00 06/08/17 08:46 (Milk Of Magnesia Liq) 30 ml Q12H PRN PO 06/07/17 10:15 (Senokot) 17.2 mg Q12H PRN PO 06/07/17 10:15 (Dulcolax Supp) 10 mg DAILY PRN RECTAL 06/07/17 10:15 (Lactulose Liq) 30 ml DAILY PRN PO 06/07/17 10:15 (Catapres) 0.1 mg Q6H PRN PO 06/07/17 10:15 (Fleets Enema (Adult)) 133 ml UNSCH PRN RECTAL 06/07/17 18:00 06/07/17 18:30 (Morphine Inj) 4 mg Q3H PRN IV 06/07/17 23:45 06/08/17 13:03 Sodium Chloride 1,000 ml @ 0 mls/hr Q0M PRN OTHER 06/08/17 09:03 (Heparin Inj) 8,000 units UNSCH PRN IV FLUSH 06/08/17 09:15 Sodium Chloride 1,000 ml @ 200 mls/hr Q5H PRN IV 06/08/17 09:03 Sodium Chloride 1,000 ml @ 0 mls/hr Q0M PRN OTHER 06/08/17 09:03 (Mannitol Inj) 12.5 gm UNSCH PRN IV 06/08/17 09:15 Albumin Human 100 ml @ 60 mls/hr UNSCH PRN IV 06/08/17 09:15 (NS Flush) 5 ml UNSCH PRN IV FLUSH 06/08/17 09:15 (Heparin Inj) UNSCH PRN .XX 06/08/17 09:15 (Gentamicin Inj) 20 mg UNSCH PRN OTHER 06/08/17 09:15 (Zofran Inj) 4 mg UNSCH PRN IV PUSH 06/08/17 09:15 (Tylenol) 650 mg UNSCH PRN PO 06/08/17 09:15 (Benadryl) 25 mg UNSCH PRN PO 06/08/17 09:15 (Nitrostat Sl) 0.4 mg UNSCH PRN SL 06/08/17 09:15 (Catapres) 0.1 mg UNSCH PRN PO 06/08/17 09:15 (Gelfoam 12 Mm/7 Mm Top) 1 foam UNSCH PRN TOP 06/08/17 09:15 Family History Noncontributory Social History Unable to obtain Physical Exam Vital Signs Vital Signs Date Time Temp Pulse Resp B/P (MAP) Pulse Ox O2 Delivery O2 Flow Rate FiO2 06/08/17 11:35 97.6 84 18 196/88 (124) 99 06/08/17 07:50 97.5 86 19 158/109 (125) 97 06/08/17 04:00 98.1 85 24 187/84 (118) 94 06/08/17 00:00 98.0 82 22 143/82 (102) 96 06/07/17 20:00 97.2 77 24 121/75 (90) 100 06/07/17 16:00 97.9 71 21 148/76 (100) 95 06/07/17 15:00 98.1 76 16 186/86 (119) 97 Nasal Cannula 2.00 06/07/17 15:00 98.1 76 18 186/86 (119) 98 Nasal Cannula 2.00 Physical Exam GENERAL: Elderly 82 year old female moaning in pain secondary to abdomen. SKIN: Warm and dry. LUE AV fistula. HEAD: Atraumatic. Normocephalic. EYES: Pupils equal and round. No scleral icterus. No injection or drainage. ENT: No nasal bleeding or discharge. Mucous membranes pink and moist. NECK: Trachea midline. CARDIOVASCULAR: Regular rate and rhythm. RESPIRATORY: No accessory muscle use. Clear to auscultation. Breath sounds equal bilaterally. GASTROINTESTINAL: Abdomen distended. Tender to palpation. Well healed midline incision. MUSCULOSKELETAL: Extremities without clubbing, cyanosis, or edema. No obvious deformities. NEUROLOGICAL: Moaning; unable to answered any questions PSYCHIATRIC: Unable to examine. Laboratory Laboratory Tests Test 06/08/17 01:01 Lactic Acid Level 0.4 Date/Time Source Procedure Growth Status 06/07/17 06:50 Blood Peripheral Aerobic Blood Culture - Preliminary NO GROWTH IN 1 DAY Resulted 06/07/17 06:50 Blood Peripheral Anaerobic Blood Culture - Preliminary NO GROWTH IN 1 DAY Resulted Result Diagram: 06/07/1745 06/07/17644 Imaging Last [address] 06/07/17609 Signed Impressions: Service Date/Time: Wednesday, June 07, 2017 09:38 - CONCLUSION: 1. No acute hemorrhage or mass effect. 2. Suboptimal study secondary to motion artifact. Hussain Zamorano MD Chest X-Ray 06/07/17609 Signed Impressions: Service Date/Time: Wednesday, June 07, 2017 06:23 - CONCLUSION: 1. Multifocal lung consolidation similar to June 06. Sebastien Hastings MD Abdomen/Pelvis CT 06/07/17609 Signed Impressions: Service Date/Time: Wednesday, June 07, 2017 09:41 - CONCLUSION: 1. Livingston catheter in place with the balloon just below the bladder base. There is a moderate amount of urine in the bladder which is otherwise unremarkable. This could be advanced. 2. Nonspecific bowel gas pattern with moderate to large amount of stool in distal colon which could indicate constipation. Findings may represent ileus and/or gastroenteritis. 3. Small bilateral pleural effusions. Hussain Zamorano MD Assessment and Plan Assessment and Plan 82 year old female with abdominal pain; constipation -Discussed with GI--- recommend decompressive scope -Continue enemas -Limit narcotic pain medications -NPO -Monitor labs -Resume HD as soon as stable -Will continue to follow closely -Discussed with family that patient is a high risk for any surgical procedure; they understood -Discussed with Niece at bedside as well as son on the phone Discussed Condition With Dr. Van Saez at bedside on via telephone Buffy Daniel/First Jess REN Jun 08, 2017 15:08
[2017-06-08] MEDS ORDERED: KETAMINE HCL 500 MG/10 ML VIAL ONE (15:13)
--- NOTE | 2017-06-08 15:51 | PD.PROCEDR ---
GI Procedure PROCEDURE PERFORMED Incomplete colonoscopy to the proximal transverse colon with a poor prep INDICATION FOR PROCEDURE Abdominal pain rule out fecal impaction PROCEDURE: The procedure, risks and benefits were discussed with Patient/POA and informed consent was obtained. Anesthesia sedated Patient with Diprivan. Patient was placed in the left lateral decubitus position. Colonoscopy: The Pentax videoscope was introduced through the rectum and advanced to proximal transverse colon. Retroflexion was performed in the rectum. Colonic prep was poor FINDINGS: As the scope was slowly withdrawn colonic mucosa was carefully inspected the colon did not appear to be significantly dilated the colonic mucosa appeared to be healthy and pink with no obvious abnormalities there was mainly liquid stool throughout the colon but there were some solid stool in the rectum but I do not think this would amount to a fecal impaction regardless this was broken down and removed and the colon was decompressed using the scope and abdominal pressure ESTIMATED BLOOD LOSS: None SPECIMENS REMOVED: None COMPLICATIONS: None IMPRESSION: Abdominal pain etiology unclear Possible resolving fecal impaction the colon was again disimpacted and decompressed but otherwise appears to be healthy PLAN: Continue with current supportive care ZINA streeter.Isaac Lerma MD Jun 08, 2017 15:51
[2017-06-08] MEDS ORDERED: DO NOT ADM ANY ANTICOAGULANT DRUGS PRN (16:00)
[2017-06-08 16:17] VITALS: PULSE 83
[2017-06-08] MEDS ORDERED: *LABETALOL HCL 100 MG/20 ML VIAL PERIprocedural Use ONLY ONE (16:17)
[2017-06-08] MEDS ORDERED: LABETALOL HCL 100 MG/20 ML VIAL IV PUSH ONE (16:18)
[2017-06-08] MEDS ORDERED: MIDAZOLAM HCL 2 MG/2 ML VIAL ONE (18:19)
--- NOTE | 2017-06-08 19:42 | HHI.PR ---
Subjective Remarks Follow up for acute delirium, abdominal pain. Patient continues to have significant pain, moaning in pain. No fever. Objective Vitals Vital Signs Date Time Temp Pulse Resp B/P (MAP) Pulse Ox O2 Delivery O2 Flow Rate FiO2 06/08/17 16:30 97.7 67 12 144/66 (92) 96 Nasal Cannula 4 06/08/17 16:17 83 06/08/17 16:15 84 12 197/84 (121) 97 Nasal Cannula 4 06/08/17 16:00 97.7 87 12 189/89 (122) 90 Nasal Cannula 4 06/08/17 14:50 96 06/08/17 14:35 95 Nasal Cannula 3 06/08/17 14:32 90 Nasal Cannula 2 06/08/17 14:32 78 06/08/17 11:35 97.6 84 18 196/88 (124) 99 06/08/17 07:50 97.5 86 19 158/109 (125) 97 06/08/17 04:00 98.1 85 24 187/84 (118) 94 06/08/17 00:00 98.0 82 22 143/82 (102) 96 06/07/17 20:00 97.2 77 24 121/75 (90) 100 I/O 06/07/17 06/07/17 06/07/17 06/08/17 06/08/17 06/08/17 07:00 15:00 23:00 07:00 15:00 23:00 Intake Total 350 ml 50 ml Output Total 450 ml 220 ml Balance 350 ml -450 ml -170 ml Intake IV Total 350 ml Other 50 ml Output Urine Total 450 ml 220 ml # Bowel Movements 2 5 2 Result Diagram: 06/07/1745 06/07/17644 Imaging Last Impressions Head CT 06/07/17609 Signed Impressions: Service Date/Time: Wednesday, June 07, 2017 09:38 - CONCLUSION: 1. No acute hemorrhage or mass effect. 2. Suboptimal study secondary to motion artifact. Hussain Zamorano MD Chest X-Ray 06/07/17609 Signed Impressions: Service Date/Time: Wednesday, June 07, 2017 06:23 - CONCLUSION: 1. Multifocal lung consolidation similar to June 06. Sebastien Hastings MD Abdomen/Pelvis CT 4/23/18 0610 Signed Impressions: Service Date/Time: Wednesday, June 07, 2017 09:41 - CONCLUSION: 1. Livingston catheter in place with the balloon just below the bladder base. There is a moderate amount of urine in the bladder which is otherwise unremarkable. This could be advanced. 2. Nonspecific bowel gas pattern with moderate to large amount of stool in distal colon which could indicate constipation. Findings may represent ileus and/or gastroenteritis. 3. Small bilateral pleural effusions. Hussain Zamorano MD Objective Remarks GENERAL: Alert, does not answer any question, moaning in pain. SKIN: Warm and dry. HEAD: Normocephalic. EYES: No scleral icterus. No injection or drainage. NECK: Supple, trachea midline. No JVD or lymphadenopathy. CARDIOVASCULAR: Regular rate and rhythm without murmurs, gallops, or rubs. RESPIRATORY: Breath sounds equal bilaterally. No accessory muscle use. GASTROINTESTINAL: Abdomen soft, non-tender, nondistended. MUSCULOSKELETAL: No cyanosis, or edema. BACK: Nontender without obvious deformity. No CVA tenderness. A/P Assessment and Plan Ms. Calderon is an 82 year old female with a history of ESRD, COPD who presented back to the hospital within 24 hour of discharge due to abdominal pain and altered mental status. Acute metabolic encephalopathy - Possibly due to abdominal pain. - Appreciate GI and Gen Surgery input. - Patient much better after decompressive colonoscopy. ESRD on hemodialysis. - Nephrology following for HD. Hx of lung cancer patient underwent bronchoscopy on 05/22/2017. Outpatient follow up. Full code. SCDshabana. Maico Campbell DO Jun 08, 2017 7:42 pm
[2017-06-08] MEDS: LORazepam 2 MG/ML VIAL IV PUSH PRN (19:59)
[2017-06-08 20:00] VITALS: BP 130/62; PULSE 91; RESP 24; TEMP 97.2; O2SAT 93
[2017-06-09] VITALS: PULSE 72; RESP 17; O2SAT 97
[2017-06-09] MEDS: MORPHINE SULFATE 4 MG/ML INJ IV PRN (03:57)
[2017-06-09 04:00] VITALS: PULSE 75; RESP 17; TEMP 98.6; O2SAT 94
--- NOTE | 2017-06-09 06:44 | RADRPT ---
EXAM DATE/TIME: 06/09/2017 06:25 [facility] COMPARISON: ABDOMEN KUB ONLY, February 01, 2016, 15:58. INDICATIONS : Constipation. Abdominal pain and distention. MEDICAL HISTORY : Diverticulitis. Chronic obstructive pulmonary disease. Gastroesophageal reflux disease. Renal amelia lure. Lung cancer. SURGICAL HISTORY : Appendectomy. Cholecystectomy. ENCOUNTER: Subsequent ACUITY: 1 week PAIN SCORE: Non-responsive. LOCATION: abdomen FINDINGS: Supine view of the abdomen was performed. The abdominal bowel gas pattern is mild ileus. No abnormal masses, calcifications, or organomegaly is seen. Postoperative kyphoplasty at [id number]-U1. CONCLUSION: 1. Mild ileus. No obstruction or free air. Sebastien Hastings MD on June 09, 2017 at 6:41 Board Certified Radiologist. This report was verified electronically.
[2017-06-09 07:34] VITALS: BP 195/81; PULSE 88; RESP 18; TEMP 97.9; O2SAT 97
[2017-06-09] MEDS: DOCUSATE SODIUM 50 MG/SENNA 8.6 MG TAB PO SCH ×2 (09:00→21:00)
[2017-06-09] MEDS: SODIUM CHLORIDE 0.9% FLUSH 10 ML FLUSH IV FLUSH SCH ×2 (09:00→21:48)
[2017-06-09] MEDS: HEPARIN SODIUM - SQ 10,000 UNITS/ML VIAL SQ SCH ×2 (11:00→23:00)
[2017-06-09] MEDS ORDERED: ENALAPRILAT 2.5 MG/2 ML VIAL IV PUSH ONE (11:15)
--- NOTE | 2017-06-09 11:27 | HHI.GIFU ---
Subjective Remarks Resting in the bed eyes closed but he is responding to simple conversation Multiple family members in the room visiting with her Appears tired, weak, no facial grimace Afebrile Plan is for patient to go to hemodialysis today (Leyla Leonard) Objective Vitals I&O Vital Signs Date Time Temp Pulse Resp B/P (MAP) Pulse Ox O2 Delivery O2 Flow Rate FiO2 06/09/17 07:34 97.9 88 18 195/81 (119) 97 06/09/17 04:00 98.6 75 17 94 06/09/17 00:00 72 17 97 06/08/17 20:00 97.2 91 24 130/62 (84) 93 06/08/17 16:30 97.7 67 12 144/66 (92) 96 Nasal Cannula 4 06/08/17 16:17 83 06/08/17 16:15 84 12 197/84 (121) 97 Nasal Cannula 4 06/08/17 16:00 97.7 87 12 189/89 (122) 90 Nasal Cannula 4 06/08/17 14:50 96 06/08/17 14:35 95 Nasal Cannula 3 06/08/17 14:32 90 Nasal Cannula 2 06/08/17 14:32 78 06/08/17 11:35 97.6 84 18 196/88 (124) 99 I/O 06/08/17 06/08/17 06/08/17 06/09/17 06/09/17 06/09/17 07:00 15:00 23:00 07:00 15:00 23:00 Intake Total 50 ml Output Total 450 ml 220 ml 250 ml Balance -450 ml -170 ml -250 ml Other 50 ml Output Urine Total 450 ml 220 ml 250 ml # Bowel Movements 5 2 0 Laboratory Date/Time Source Procedure Growth Status 06/07/17 06:50 Blood Peripheral Aerobic Blood Culture - Preliminary NO GROWTH IN 2 DAYS Resulted 06/07/17 06:50 Blood Peripheral Anaerobic Blood Culture - Preliminary NO GROWTH IN 2 DAYS Resulted Imaging Last Impressions Abdomen X-Ray 06/09/17 0600 Signed Impressions: Service Date/Time: Friday, June 09, 2017 06:25 - CONCLUSION: 1. Mild ileus. No obstruction or free air. Sebastien Hastings MD Head CT 06/07/17 0610 Signed Impressions: Service Date/Time: Wednesday, June 07, 2017 09:38 - CONCLUSION: 1. No acute hemorrhage or mass effect. 2. Suboptimal study secondary to motion artifact. Hussain Zamorano MD Chest X-Ray 06/07/17609 Signed Impressions: Service Date/Time: Wednesday, June 07, 2017 06:23 - CONCLUSION: 1. Multifocal lung consolidation similar to June 06. Sebastien Hastings MD Abdomen/Pelvis CT 06/07/17609 Signed Impressions: Service Date/Time: Wednesday, June 07, 2017 09:41 - CONCLUSION: 1. Livingston catheter in place with the balloon just below the bladder base. There is a moderate amount of urine in the bladder which is otherwise unremarkable. This could be advanced. 2. Nonspecific bowel gas pattern with moderate to large amount of stool in distal colon which could indicate constipation. Findings may represent ileus and/or gastroenteritis. 3. Small bilateral pleural effusions. Hussain Zamorano MD Physical Exam HEENT: normocephalic; atraumatic; no jaundice. Mild erythema forehead and right cheek, no obvious rash NECK: Neck is supple, CHEST: No audible wheezing or rhonchi, no shortness of breath CARDIAC: S1-S2, regular ABDOMEN: Soft, mild bloating, no obvious tenderness to light palpation bowel sounds soft EXTREMITIES: No lower extremity edema. SKIN: Pale thin skin turgor no rash; no jaundice. PROFESSIONAL NURSE: Answering simple questions appropriately, drowsy but does respond (Leyla Leonard) Assessment and Plan Plan ASSESSMENT - abd pain - could be 2/2 constipation , CT showed stool distal colon and ileus vs gastroenteritis EGD colonoscopy 2016 unremarkable. 06/08/17, unable to tolerate Golytely. Spoke with GELA Mckinney and Hospitalist Dr. Campbell today,. Abdominal distention. HGB 12.1, WBC count, 11.2., Dr. Araujo in for surgical evaluation. No surgical plans for now, will await GI follow-up for now Spoke with family members who states that her usual status is up ambulatory and takes care of herself. Patient was recently discharged from hospital and showed back up 24 hours later with distended abdomen. CT scan shows large amount of stool 06/09/2017, patient is status post, decompressive sigmoidoscopy. Fecal impaction done around the rectal area was disimpacted and decompressed. KUB today, shows mild ileus but no obstruction. No obvious abdominal pain today and according to family members her abdomen appears to be back to her baseline at home. Supportive care to family. According to family members she is going to hemodialysis today Patient is much more comfortable today mildly drowsy but is responding to simple verbal stimuli. Multiple family members in the room. Mild ileus, will continue to monitor, maintain clear liquids for now patient currently end-stage renal disease on hemodialysis, hemoglobin on this admission was 12.1. We will continue to monitor PLAN -Clear liquids -Pain management per attending -Recheck CBC in the morning -Lactulose daily -Anti-emetics -Monitor labs - Supportive care - further recs to follow pt seen by myself and Dr Izaguirre and this note is on his behalf (Leyla Leonard) Physician Comments Patient seen and examined Agree with above Continue with current supportive care Monitor labs (Isaac Izaguirre MD) Leyla Leonard Jun 09, 2017 11:27 Isaac Izaguirre MD Jun 09, 2017 22:23
--- NOTE | 2017-06-09 12:20 | HHI.NPPN ---
Subjective General Problems: Anemia Renal Failure: Chronic, End Stage Renal Disease Interval History She has multiple family members in the room. She is obtunded, opens eyes for a brief second then goes back to sleep. Her face is red, unsure if it is from shearing yesterday with all of the restlessness. The family has asked for dialysis to be continued. S/P decompressive colonoscopy yesterday (Milana Sandoval) Review of Systems Gastrointestinal Gastrointestinal: Abdominal Pain (Milana Sandoval) Objective Data Data 06/09/17 06/10/17 19:00 07:00 Output Total 250 ml Balance -250 ml Output Urine Total 250 ml # Bowel Movements 0 Vital Signs Date Time Temp Pulse Resp B/P (MAP) Pulse Ox O2 Delivery O2 Flow Rate FiO2 06/09/17 07:34 97.9 88 18 195/81 (119) 97 06/09/17 04:00 98.6 75 17 94 06/09/17 00:00 72 17 97 06/08/17 20:00 97.2 91 24 130/62 (84) 93 06/08/17 16:30 97.7 67 12 144/66 (92) 96 Nasal Cannula 4 06/08/17 16:17 83 06/08/17 16:15 84 12 197/84 (121) 97 Nasal Cannula 4 06/08/17 16:00 97.7 87 12 189/89 (122) 90 Nasal Cannula 4 06/08/17 14:50 96 06/08/17 14:35 95 Nasal Cannula 3 06/08/17 14:32 90 Nasal Cannula 2 06/08/17 14:32 78 (Milana Sandoval) -: 06/07/17 0645 06/07/17 0645 Imaging Last 72 hours Impressions Abdomen X-Ray 06/09/17 0600 Signed Impressions: Service Date/Time: Friday, June 09, 2017 06:25 - CONCLUSION: 1. Mild ileus. No obstruction or free air. Sebastien Hastings MD Head CT 06/07/17 0610 Signed Impressions: Service Date/Time: Wednesday, June 07, 2017 09:38 - CONCLUSION: 1. No acute hemorrhage or mass effect. 2. Suboptimal study secondary to motion artifact. Hussain Zamorano MD Chest X-Ray 06/07/17609 Signed Impressions: Service Date/Time: Wednesday, June 07, 2017 06:23 - CONCLUSION: 1. Multifocal lung consolidation similar to June 06. Sebastien Hastings MD Abdomen/Pelvis CT 06/07/17609 Signed Impressions: Service Date/Time: Wednesday, June 07, 2017 09:41 - CONCLUSION: 1. Oliveros catheter in place with the balloon just below the bladder base. There is a moderate amount of urine in the bladder which is otherwise unremarkable. This could be advanced. 2. Nonspecific bowel gas pattern with moderate to large amount of stool in distal colon which could indicate constipation. Findings may represent ileus and/or gastroenteritis. 3. Small bilateral pleural effusions. Hussain Zamorano MD (Milana Sandoval B. [employer] HOME SUPERVISOR) Physical Exam General Appearance: Sleeping, Malnourished Appearance Remarks appears chronically ill facial skin with erythema, shearing (JaimeMilana B. [employer] HOME SUPERVISOR) Eyes Eye Exam: Pupils Equal, Pupils Reactive (JaimeMilana B. [employer] HOME SUPERVISOR) Pulmonary Resp Exam: No Distress, Decreased Bases (Jaime,Milana B. [employer] HOME SUPERVISOR) Cardiology CV Exam: Regular, Normal Sinus Rhythm (JaimeMilana B. [employer] HOME SUPERVISOR) Gastrointestinal/Abdomen GI Exam: Bowel Sounds Present, Positive Bowel Movement, Distended (JaimeMilana B. [employer] HOME SUPERVISOR) Musculoskeletal MS Exam: Joints Intact, Atrophy, Unable to Ambulate (JaimeMilana B. [employer] HOME SUPERVISOR) Integumentary Skin Exam: Warm, Dry, Intact (JaimeMilana B. [employer] HOME SUPERVISOR) Extremeties Extremities Exam: No Edema, Pedal Pulses Palpable (Jaime,Milana B. [employer] HOME SUPERVISOR) Neurologic Neuro Exam: Obtunded (JaimeMilana B. [employer] HOME SUPERVISOR) VTE Prophylaxis Device: SCDs (JaimeMilana B. [employer] HOME SUPERVISOR) Assessment/Plan Discussed Condition With: Spouse Assessment Summary: Anemia of CKD, Hypertension, End Stage Renal Disease Problem List: (1) End stage renal disease on dialysis ICD Codes: N18.6 - End stage renal disease; Z99.2 - Dependence on renal dialysis Status: Chronic Plan: HD is normally on TTS We were unable to dialyze the patient yesterday given her intractable pain and inability to hold still yesterday D/W family, they would like to continue HD support at this time; HD today Off IVF Remove oliveros catheter Encourage PO intake, apparently has not eaten in some time High protein diet encouraged if able to eat Hold phosphorus binders AVF is patent, protect that extremity Palliative care is following. Dialysis may prolong her suffering; in addition she may not be able to tolerate given overall health condition. Will monitor response to and during dialysis. (2) Pain, abdominal ICD Codes: R10.9 - Unspecified abdominal pain Plan: Improving, it was thought to be due to constipation, s/p decompressive colonoscopy and GoLytely GI following (3) Small cell lung cancer ICD Codes: C34.90 - Malignant neoplasm of unspecified part of unspecified bronchus or lung Status: Acute Plan: Currently not undergoing treatment Palliative care following to establish goals of care (4) HTN (hypertension) ICD Codes: I10 - Essential (primary) hypertension Status: Acute Plan: Resume home medications, titrate as needed (5) PNA (pneumonia) ICD Codes: J18.9 - Pneumonia, unspecified organism Status: Acute Plan: CXR showing consolidation Given Zithromax and Rocephin (Milana Sandoval) Plan patient was seen and examined on 06/09/17. Agree with above assessment and plan. Long discussion with the family. Discussed quality of life issues as opposed to sustaining life. Family wanted us to dialyze her. (Gt Trejo MD) Problem Qualifiers (1) PNA (pneumonia): Qualified Codes: J18.9 - Pneumonia, unspecified organism Milana Sandoval Jun 09, 2017 12:20 Gt Trejo MD Jun 10, 2017 14:38
--- NOTE | 2017-06-09 12:58 | HHI.PR ---
Subjective Remarks Follow up for acute delirium, abdominal pain. Patient is much more calm today. No moaning in pain. No fever, chills. BP is somewhat elevated. Objective Vitals Vital Signs Date Time Temp Pulse Resp B/P (MAP) Pulse Ox O2 Delivery O2 Flow Rate FiO2 06/09/17 07:34 97.9 88 18 195/81 (119) 97 06/09/17 04:00 98.6 75 17 94 06/09/17 00:00 72 17 97 06/08/17 20:00 97.2 91 24 130/62 (84) 93 06/08/17 16:30 97.7 67 12 144/66 (92) 96 Nasal Cannula 4 06/08/17 16:17 83 06/08/17 16:15 84 12 197/84 (121) 97 Nasal Cannula 4 06/08/17 16:00 97.7 87 12 189/89 (122) 90 Nasal Cannula 4 06/08/17 14:50 96 06/08/17 14:35 95 Nasal Cannula 3 06/08/17 14:32 90 Nasal Cannula 2 06/08/17 14:32 78 I/O 06/08/17 06/08/17 06/08/17 06/09/17 06/09/17 06/09/17 07:00 15:00 23:00 07:00 15:00 23:00 Intake Total 50 ml Output Total 450 ml 220 ml 250 ml Balance -450 ml -170 ml -250 ml Other 50 ml Output Urine Total 450 ml 220 ml 250 ml # Bowel Movements 5 2 0 Result Diagram: 06/07/1745 06/07/17644 Imaging Last Impressions Abdomen X-Ray 06/09/17 06 Signed Impressions: Service Date/Time: Friday, June 09, 2017 06:25 - CONCLUSION: 1. Mild ileus. No obstruction or free air. Sebastien Hastings MD Head CT 06/07/17609 Signed Impressions: Service Date/Time: Wednesday, June 07, 2017 09:38 - CONCLUSION: 1. No acute hemorrhage or mass effect. 2. Suboptimal study secondary to motion artifact. Hussain Zamorano MD Chest X-Ray 06/07/17609 Signed Impressions: Service Date/Time: Wednesday, June 07, 2017 06:23 - CONCLUSION: 1. Multifocal lung consolidation similar to June 06. Sebastien Hastings MD Abdomen/Pelvis CT 06/07/17 0610 Signed Impressions: Service Date/Time: Wednesday, June 07, 2017 09:41 - CONCLUSION: 1. Livingston catheter in place with the balloon just below the bladder base. There is a moderate amount of urine in the bladder which is otherwise unremarkable. This could be advanced. 2. Nonspecific bowel gas pattern with moderate to large amount of stool in distal colon which could indicate constipation. Findings may represent ileus and/or gastroenteritis. 3. Small bilateral pleural effusions. Hussain Zamorano MD Objective Remarks GENERAL: Alert, does not answer any question, moaning in pain. SKIN: Warm and dry. HEAD: Normocephalic. EYES: No scleral icterus. No injection or drainage. NECK: Supple, trachea midline. No JVD or lymphadenopathy. CARDIOVASCULAR: Regular rate and rhythm without murmurs, gallops, or rubs. RESPIRATORY: Breath sounds equal bilaterally. No accessory muscle use. GASTROINTESTINAL: Abdomen soft, non-tender, nondistended. MUSCULOSKELETAL: No cyanosis, or edema. BACK: Nontender without obvious deformity. No CVA tenderness. Procedures Incomplete colonoscopy 06/08/2017 As the scope was slowly withdrawn colonic mucosa was carefully inspected the colon did not appear to be significantly dilated the colonic mucosa appeared to be healthy and pink with no obvious abnormalities there was mainly liquid stool throughout the colon but there were some solid stool in the rectum but I do not think this would amount to a fecal impaction regardless this was broken down and removed and the colon was decompressed using the scope and abdominal pressure A/P Assessment and Plan Ms. Calderon is an 82 year old female with a history of ESRD, COPD who presented back to the hospital within 24 hour of discharge due to abdominal pain and altered mental status. Acute metabolic encephalopathy - Possibly due to abdominal pain. - Appreciate GI and Gen Surgery input. - Patient much better after decompressive colonoscopy. ESRD on hemodialysis. - Nephrology following for HD. Likely dialysis today. Hx of lung cancer - patient underwent bronchoscopy on 05/22/2017. Outpatient follow up. Hypertension - Will start patient on Clonidine patch as well as Vasotec IV PRN. Full code. SCDs. Maico Campbell DO Jun 09, 2017 12:58 pm
[2017-06-09] MEDS ORDERED: cloNIDine HCL 0.1 MG/24 HR PATCH T-DERMAL SCH (13:00)
[2017-06-09] MEDS: cloNIDine HCL 0.1 MG TAB PO PRN (13:30)
[2017-06-09] MEDS: LORazepam 2 MG/ML VIAL IV PUSH PRN (14:56)
[2017-06-09] MEDS: LOSARTAN 50 MG TAB PO SCH (15:00)
--- NOTE | 2017-06-09 15:39 | HHI.PR ---
cc: Oswald Araujo MD Subjective Subjective Notes Resting in bed Feeling better today She was lethargic but per family she has been quite interactive with them earlier Objective Vitals/I&O Vital Signs Date Time Temp Pulse Resp B/P (MAP) Pulse Ox O2 Delivery O2 Flow Rate FiO2 06/09/17 07:34 97.9 88 18 195/81 (119) 97 06/08/17 16:30 Nasal Cannula 4 Labs Date/Time Source Procedure Growth Status 06/07/17 06:50 Blood Peripheral Aerobic Blood Culture - Preliminary NO GROWTH IN 2 DAYS Resulted 06/07/17 06:50 Blood Peripheral Anaerobic Blood Culture - Preliminary NO GROWTH IN 2 DAYS Resulted Radiology Last [address] 06/07/17609 Signed Impressions: Service Date/Time: Wednesday, June 07, 2017 09:38 - CONCLUSION: 1. No acute hemorrhage or mass effect. 2. Suboptimal study secondary to motion artifact. Hussain aZmorano MD Chest X-Ray 06/07/17609 Signed Impressions: Service Date/Time: Wednesday, June 07, 2017 06:23 - CONCLUSION: 1. Multifocal lung consolidation similar to June 06. Sebastien Hastings MD Abdomen/Pelvis CT 06/07/17609 Signed Impressions: Service Date/Time: Wednesday, June 07, 2017 09:41 - CONCLUSION: 1. Livingston catheter in place with the balloon just below the bladder base. There is a moderate amount of urine in the bladder which is otherwise unremarkable. This could be advanced. 2. Nonspecific bowel gas pattern with moderate to large amount of stool in distal colon which could indicate constipation. Findings may represent ileus and/or gastroenteritis. 3. Small bilateral pleural effusions. Hussain Zamorano MD Cardiovascular: Regular Lungs: Clear Abdomen: Non-distended, Non-tender Narrative Exam Multiple areas of bruising on RUE A/P Assessment and Plan 82 year old female with fecal impaction -S/p decompressive colonoscopy -Exam must improved -Okay to start sips of clear liquids from GS standpoint; advance as tolerated -Limit narcotic pain medication -Bowel regimen -Discussed with PATRICK Britton as well as multiple family members at the bedside Buffy Daniel/Patient Safety Attendant MATTRESS FILLER Jun 09, 2017 15:39
[2017-06-09 16:07] VITALS: BP 233/95; PULSE 89; RESP 22; TEMP 98.4; O2SAT 97
--- NOTE | 2017-06-09 16:21 | HHI.HCPN ---
Reason for visit a. To assist with evaluation and management of symptoms including: abdominal pain, dyspnea, confusion b. To assist medical decision maker(s) with: better understanding of current medical conditions; weighing benefits/burdens of medical treatment options; making medical treatment decisions. Subjective/Interval History Patient seen to follow-up symptoms of abdominal pain, dyspnea, confusion. Status post decompressive partial colonoscopy yesterday 06/08. No acute findings , what stool was present was evacuated. Follow-up abdomen imaging today indicative of mild ileus no obstruction. No new labs. 1 L removal per hemodialysis today. Received dose prn Ativan 0.5mg earlier today for anxiety/ agitation. VS wnl. indicates pt more interactive this morning. Indicates her pain much better. No shortness of breath per his observations. Upon my initial attempt she was off the floor from hemodialysis, returned shortly after and she has returned, at bedside, daughter and other family members joined shortly after. indicates she has been much more comfortable since the procedure yesterday. She is lethargic, snoring sleeping soundly during my exam she does not stir. indicates she woke up earlier today was able to visit with the family and seemed much clearer and closer to her usual self. Review of hospital course thus far, possible trajectories going forward. He is tearful at times. He indicates that the patient has told him she does not want to do anymore. Explore what this means, he indicates that she does not want to do anymore dialysis, she does not want to keep coming to the hospital and that he knows that she could continue to have illnesses related to her most recent acute hospitalization and he expects she will continue to decline until she dies. He does not want to watch her suffer. He indicates she would not want to be in the hospital anymore and he would want to be able to take care of her at home and hopefully allow her to peacefully at home from what ever may happen to her. He understands that if he elected to forego further aggressive treatments this would include hemodialysis he understands this would mean significant decrease in life expectancy 2 days or possibly weeks. Family supports him in this request. Also review with him and them CODE STATUS he endorses she would want DNR status at this point. Review of hospice services, role, philosophy. He would like to proceed with hospice meeting either today or tomorrow and possible enrollment to get her back and hospice services. Upon review that there are many hospice providers I did review hospice services and care centers , he lives in [place] [place] [facility] and request a hospice that has [facility] and [facility] . Advance Directives Living Will: Completed, but not made available Health Care Surrogate: Completed, but not made available Advance Directive Specifics Health Care Surrogate(s): No healthcare surrogate form available. By [place] statutes, the would be the legal proxy decision-maker. . Documented care wishes: No living will available. . Significant change in goals: has requested hospice consultation today. He has also requested no code. He would like to get pt home with hospice services in the coming days. Objective Vital Signs Date Time Temp Pulse Resp B/P (MAP) Pulse Ox O2 Delivery O2 Flow Rate FiO2 06/09/17 07:34 97.9 88 18 195/81 (119) 97 06/09/17 04:00 98.6 75 17 94 06/09/17 00:00 72 17 97 06/08/17 20:00 97.2 91 24 130/62 (84) 93 06/08/17 16:30 97.7 67 12 144/66 (92) 96 Nasal Cannula 4 06/08/17 16:17 83 06/08/17 16:15 84 12 197/84 (121) 97 Nasal Cannula 4 06/08/17 16:00 97.7 87 12 189/89 (122) 90 Nasal Cannula 4 Intake & Output 06/09/17 06/09/17 07:00 19:00 Output Total 1250 ml Balance -1250 ml Output Urine Total 250 ml Hemodialysis 1000 ml # Bowel Movements 0 Physical Exam CONSTITUTIONAL/GENERAL: This is a thin, elderly patient, lethargic, no apparent distress. TUBES/LINES/DRAINS:PIV right upper extremity, NC O2, oliveros catheter . SKIN: No jaundice, rashes, or lesions. Multiple areas ecchymoses on upper extremities, and across abdomen. No wounds seen anteriorly. Skin warm/dry. CARDIOVASCULAR: Regular rate and rhythm, S1, S2, faint 2/6 systolic ejection murmur heard at left sternal border. No JVD. Peripheral pulses symmetric. No peripheral edema. RESPIRATORY/CHEST: Symmetric, unlabored respirations. Clear, diminished to auscultation. Breath sounds equal bilaterally. GASTROINTESTINAL: Abdomen soft, nontender, very slightly distended, hypoactive bowel sounds 4. GENITOURINARY: Without palpable bladder distension. Oliveros catheter in place clear yellow urine. MUSCULOSKELETAL: Extremities without clubbing, cyanosis, or edema. No joint tenderness or effusion noted. NEUROLOGICAL: Lethargic, sleeping soundly during my exam. Does not open eyes or respond to my exam. Does not follow my commands. Does move all 4 extremities spontaneously. PSYCHIATRIC: No evident anxiety, lethargy . Diagnostic Tests Laboratory Laboratory Tests Test 06/07/17 06:45 06/08/17 01:01 White Blood Count 11.2 TH/MM3 (4.0-11.0) Red Blood Count 3.84 MIL/MM3 (4.00-5.30) Hemoglobin 12.1 GM/DL (11.6-15.3) Hematocrit 37.8 % (35.0-46.0) Mean Corpuscular Volume 98.5 FL (80.0-100.0) Mean Corpuscular Hemoglobin 31.6 PG (27.0-34.0) Mean Corpuscular Hemoglobin Concent 32.1 % (32.0-36.0) Red Cell Distribution Width 17.5 % (11.6-17.2) Platelet Count 185 TH/MM3 (150-450) Mean Platelet Volume 8.6 FL (7.0-11.0) Neutrophils (%) (Auto) 83.6 % (16.0-70.0) Lymphocytes (%) (Auto) 6.5 % (9.0-44.0) Monocytes (%) (Auto) 8.1 % (0.0-8.0) Eosinophils (%) (Auto) 1.0 % (0.0-4.0) Basophils (%) (Auto) 0.8 % (0.0-2.0) Neutrophils # (Auto) 9.4 TH/MM3 (1.8-7.7) Lymphocytes # (Auto) 0.7 TH/MM3 (1.0-4.8) Monocytes # (Auto) 0.9 TH/MM3 (0-0.9) Eosinophils # (Auto) 0.1 TH/MM3 (0-0.4) Basophils # (Auto) 0.1 TH/MM3 (0-0.2) CBC Comment DIFF FINAL Differential Comment Prothrombin Time 10.7 SEC (9.8-11.6) Prothromb Time International Ratio 1.1 RATIO Activated Partial Thromboplast Time 23.4 SEC (24.3-30.1) Urine Color YELLOW (YELLW/STRAW) Urine Turbidity CLEAR (CLEAR) Urine pH 8.0 (5.0-8.5) Urine Specific [place] 1.008 (1.002-1.035) Urine Protein 100 mg/dL (NEG-TRACE) Urine Glucose (UA) NEG mg/dL (NEG) Urine Ketones NEG mg/dL (NEG) Urine Occult Blood SMALL (NEG) Urine Nitrite NEG (NEG) Urine Bilirubin NEG (NEG) Urine Urobilinogen LESS THAN 2.0 MG/DL (LESS Urine Leukocyte Esterase NEG (NEG) Urine RBC 7 /hpf (0-3) Urine WBC 3 /hpf (0-5) Urine Squamous Epithelial Cells <1 /hpf (0-5) Urine Transitional Epithelial Cells <1 /hpf (NONE) Microscopic Urinalysis Comment CULT NOT INDICATED Blood Urea Nitrogen 32 MG/DL (7-18) Creatinine 3.06 MG/DL (0.50-1.00) Random Glucose 84 MG/DL (74-106) Total Protein 6.1 GM/DL (6.4-8.2) Albumin 2.5 GM/DL (3.4-5.0) Calcium Level 9.2 MG/DL (8.5-10.1) Phosphorus Level 1.1 MG/DL (2.5-4.9) Magnesium Level 2.2 MG/DL (1.5-2.5) Alkaline Phosphatase 81 U/L (45-117) Aspartate Amino Transf (AST/SGOT) 19 U/L (15-37) Alanine Aminotransferase (ALT/SGPT) 16 U/L (10-53) Total Bilirubin 0.5 MG/DL (0.2-1.0) Sodium Level 136 MEQ/L (136-145) Potassium Level 4.1 MEQ/L (3.5-5.1) Chloride Level 98 MEQ/L (98-107) Carbon Dioxide Level 26.6 MEQ/L (21.0-32.0) Anion Gap 11 MEQ/L (5-15) Estimat Glomerular Filtration Rate 15 ML/MIN (>89) Total Creatine Kinase 28 U/L (26-192) Troponin I 0.04 NG/ML (0.02-0.05) Lipase 192 U/L (73-393) Thyroid Stimulating Hormone 3rd Gen 6.300 uIU/ML (0.358-3.740) Lactic Acid Level 0.4 mmol/L (0.4-2.0) Result Diagram: 06/07/1764406/07/17644 Microbiology Microbiology Date/Time Source Procedure Growth Status 06/07/17 06:50 Blood Peripheral Aerobic Blood Culture - Preliminary NO GROWTH IN 2 DAYS Resulted 06/07/17 06:50 Blood Peripheral Anaerobic Blood Culture - Preliminary NO GROWTH IN 2 DAYS Resulted 06/07/17 06:45 Blood Peripheral Aerobic Blood Culture - Preliminary NO GROWTH IN 2 DAYS Resulted 06/07/17 06:45 Blood Peripheral Anaerobic Blood Culture - Preliminary NO GROWTH IN 2 DAYS Resulted Imaging Last Impressions Abdomen X-Ray 06/09/17599 Signed Impressions: Service Date/Time: Friday, June 09, 2017 06:25 - CONCLUSION: 1. Mild ileus. No obstruction or free air. Sebastien Hastings MD Head CT 06/07/17609 Signed Impressions: Service Date/Time: Wednesday, June 07, 2017 09:38 - CONCLUSION: 1. No acute hemorrhage or mass effect. 2. Suboptimal study secondary to motion artifact. Hussain Zamorano MD Chest X-Ray 06/07/17609 Signed Impressions: Service Date/Time: Wednesday, June 07, 2017 06:23 - CONCLUSION: 1. Multifocal lung consolidation similar to June 06. Sebastien Hastings MD Abdomen/Pelvis CT 06/07/17609 Signed Impressions: Service Date/Time: Wednesday, June 07, 2017 09:41 - CONCLUSION: 1. Oliveros catheter in place with the balloon just below the bladder base. There is a moderate amount of urine in the bladder which is otherwise unremarkable. This could be advanced. 2. Nonspecific bowel gas pattern with moderate to large amount of stool in distal colon which could indicate constipation. Findings may represent ileus and/or gastroenteritis. 3. Small bilateral pleural effusions. Hussain Zamorano MD Assessment and Plan Disease Oriented Problem List: (1) Pneumonia (2) Small cell lung cancer (3) HTN (hypertension) (4) Intractable abdominal pain (5) Anemia due to chronic kidney disease (6) End stage renal disease on dialysis Symptom Scale: (1) Dyspnea 0-10 Scale: Unable to quantify (2) Pain, abdominal 0-10 Scale: Unable to quantify Pertinent Non-Medical Issues Psychosocial:Lives at home with her spouse of 30+ years. has 2 sons, 2 daughters who live out of state. Retired. 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 She may regain ability to participate if her clinical condition improves. indicates he is designated healthcare surrogate he indicates she does have documentation of this. In absence of documentation he would be appropriate legal proxy per [place] statutes. Ethical issues impacting care: No ethical issues identified Important Contacts Ru Calderon, spouse, [phone] . Prognosis this pt was admitted for AMS, pain 06/07; following recent hospitalization 05/25- for pneumonia, hemoptysis. CT abdomen = possible ileus vs constipation vs gastroenteritis. Hx underlying ESRD on HD, NSCLC. Prognosis guarded, high risk for clinical decline due to multiple chronic medical conditions, and advanced age. . Code Status: No Code Plan * Legal decision maker:Patient is currently unable to participate in decision- making. She may regain ability to participate if her clinical condition improves. indicates he is designated healthcare surrogate he indicates she does have documentation of this. In absence of documentation he would be appropriate legal proxy per [place] statutes. * Goals: has requested hospice consultation today. He has also requested no code. He would like to get pt home with hospice services in the coming days. Hospice consult order placed. * CODE STATUS: DNR * SYMPTOMS: --dyspnea- hx COPD, +pneumonia, on/off 02 at home. currently on nasal cannula , mildly tachypneic --abdominal pain- presented w severe abdominal pain. Apparently just d/c the day before presentation, one of her issues at d/c was constipation. reports having loose BMs at home, but requiring manual movement of a "large ball " by patient in order to allow liquid stool to pass. denies blood in stool, black stool. s/p decompressive colonoscopy 06/08. CT abdomen = possible ileus vs constipation vs gastroenteritis. f/up KUB 06/09 = no obstruction, mild ileus. Per patient patient pain much better today, and yesterday after procedure. Cautious use of opiates given AMS at presentation, hx ESRD, opiate michael. Consider PRN hydromorphone 0.25 mg to 0.5 mg every 3-4 PRN pain. if opiates necessary may consider using Relistor to not worsen. --Confusion -at presentation her speech is garbled, she is unable to make her needs known, not responding to commands. Her baseline is oriented and independent. The confusion began the night after her discharge from the hospital, UA negative, mild leukocytosis, significant change in her TSH noted from 05/26 where level was 0.653 and 12 days later, TSH reading 6.300, no other notable metabolic derangements. Would consider verifying TSH level due to such a significant change in such a short time. lethargic at time of my exam 06/09 s/ p ativan, reports pt more interactive w family this morning. ? improving 06/09 * Palliative care will continue to follow during hospital course as condition evolves, to assist patient/decision-maker with understanding of medical conditions, weighing benefits/burdens of treatment options, for clarification of goals of treatment. Additionally will assist with any symptoms of palliative concern . Time Spent Total Floor Time (mins): 35 (chart review, PE, lengthy discussion w family at bedside. ) Attestation To help prompt me to consider important information that might be impacting today's encounter and assessment, information from prior notes written by myself or my colleagues may have been "brought forward" into today's note. My signature on this note, however, is an attestation that I personally performed the exam, history, and/or decision-making noted today, and, unless otherwise indicated, the interactions with patient, family, and staff as well as the review of records all occurred today. I also attest that the listed assessment and stated plan reflect my best clinical judgment today based on the combination of historical information, prior notes, and today's exam/ interactions. When time spent is documented, it refers only to time spent today by the signer, or if indicated, combined time spent today by collaborating physician/nurse practitioner. Margarita Collier Jun 09, 2017 16:21
--- NOTE | 2017-06-09 17:37 | HHI.DS ---
Discharge Summary Admission Date Jun 07, 2017 at 10:14 Discharge Date: Jun 10, 2017 Admitting Diagnosis PNA; AMS; Consipation (1) S/P laparoscopic cholecystectomy ICD Code: Z90.49 - Acquired absence of other specified parts of digestive tract Status: Acute (2) Pain, abdominal ICD Code: R10.9 - Unspecified abdominal pain (3) Small cell lung cancer ICD Code: C34.90 - Malignant neoplasm of unspecified part of unspecified bronchus or lung Status: Acute (4) HTN (hypertension) ICD Code: I10 - Essential (primary) hypertension Status: Acute (5) Pneumonia ICD Code: J18.9 - Pneumonia, unspecified organism (6) PNA (pneumonia) ICD Code: J18.9 - Pneumonia, unspecified organism Status: Acute (7) Pleural effusion ICD Code: J90 - Pleural effusion, not elsewhere classified Status: Acute (8) End stage renal disease ICD Code: N18.6 - End stage renal disease Status: Acute (9) Lung cancer ICD Code: C34.90 - Malignant neoplasm of unspecified part of unspecified bronchus or lung Procedures Incomplete colonoscopy 06/08/2017 As the scope was slowly withdrawn colonic mucosa was carefully inspected the colon did not appear to be significantly dilated the colonic mucosa appeared to be healthy and pink with no obvious abnormalities there was mainly liquid stool throughout the colon but there were some solid stool in the rectum but I do not think this would amount to a fecal impaction regardless this was broken down and removed and the colon was decompressed using the scope and abdominal pressure Brief History - From Admission Ms. Calderon is an 82 year old female with a history of ESRD, COPD who presented back to the hospital within 24 hour of discharge due to abdominal pain and altered mental status. Patient was discharged on 06/06/2017. On 06/05/2017, patient had significant problem with constipation. RN attempted manual disimpaction and eventually required mag citrate. On 06/06/2017, patient was doing well - she was alert, oriented x 3, ambulating well. Her plan was to go home and follow up with a colorectal surgeon. She went home in hemodynamically stable condition. Unfortunately, within 24 hours, she started having abdominal pain and altered mental status. On arrival, CT head negative, CT abd/pelvis indicate possible constipation and ileus. GI consulted. Despite trying enema, she had very little bowel movement and her mental status has not improved. CBC/BMP: 06/07/17 0645 06/07/17 0645 Significant Findings Laboratory Tests Test 06/07/17 06:45 06/08/17 01:01 White Blood Count 11.2 TH/MM3 (4.0-11.0) Red Blood Count 3.84 MIL/MM3 (4.00-5.30) Red Cell Distribution Width 17.5 % (11.6-17.2) Neutrophils (%) (Auto) 83.6 % (16.0-70.0) Lymphocytes (%) (Auto) 6.5 % (9.0-44.0) Monocytes (%) (Auto) 8.1 % (0.0-8.0) Neutrophils # (Auto) 9.4 TH/MM3 (1.8-7.7) Lymphocytes # (Auto) 0.7 TH/MM3 (1.0-4.8) Activated Partial Thromboplast Time 23.4 SEC (24.3-30.1) Urine Protein 100 mg/dL (NEG-TRACE) Urine Occult Blood SMALL (NEG) Urine RBC 7 /hpf (0-3) Blood Urea Nitrogen 32 MG/DL (7-18) Creatinine 3.06 MG/DL (0.50-1.00) Total Protein 6.1 GM/DL (6.4-8.2) Albumin 2.5 GM/DL (3.4-5.0) Phosphorus Level 1.1 MG/DL (2.5-4.9) Estimat Glomerular Filtration Rate 15 ML/MIN (>89) Thyroid Stimulating Hormone 3rd Gen 6.300 uIU/ML (0.358-3.740) Imaging Last Impressions Abdomen X-Ray 06/09/17 0600 Signed Impressions: Service Date/Time: Friday, June 09, 2017 06:25 - CONCLUSION: 1. Mild ileus. No obstruction or free air. Sebastien Hastings MD Head CT 06/07/17 0610 Signed Impressions: Service Date/Time: Wednesday, June 07, 2017 09:38 - CONCLUSION: 1. No acute hemorrhage or mass effect. 2. Suboptimal study secondary to motion artifact. Hussain Zamorano MD Chest X-Ray 06/07/17609 Signed Impressions: Service Date/Time: Wednesday, June 07, 2017 06:23 - CONCLUSION: 1. Multifocal lung consolidation similar to June 06. Sebastien Hastings MD Abdomen/Pelvis CT 06/07/17609 Signed Impressions: Service Date/Time: Wednesday, June 07, 2017 09:41 - CONCLUSION: 1. Livingston catheter in place with the balloon just below the bladder base. There is a moderate amount of urine in the bladder which is otherwise unremarkable. This could be advanced. 2. Nonspecific bowel gas pattern with moderate to large amount of stool in distal colon which could indicate constipation. Findings may represent ileus and/or gastroenteritis. 3. Small bilateral pleural effusions. Hussain Zamorano MD PE at Discharge GENERAL: Alert, does not answer any question, moaning in pain. SKIN: Warm and dry. HEAD: Normocephalic. EYES: No scleral icterus. No injection or drainage. NECK: Supple, trachea midline. No JVD or lymphadenopathy. CARDIOVASCULAR: Regular rate and rhythm without murmurs, gallops, or rubs. RESPIRATORY: Breath sounds equal bilaterally. No accessory muscle use. GASTROINTESTINAL: Abdomen soft, non-tender, nondistended. MUSCULOSKELETAL: No cyanosis, or edema. BACK: Nontender without obvious deformity. No CVA tenderness. Pt update on day of discharge Patient is resting in bed, does not say much. Does not appear to be in any distress like she was on 06/08/2017. She was evaluated by hospice per patient's 's request. Patient was deemed to be appropriate for hospice. Patient is being discharged to hospice care center on 06/10/2017. Hospital Course Ms. Calderon is an 82 year old female with a history of ESRD, COPD who presented back to the hospital within 24 hour of discharge due to abdominal pain and altered mental status. Acute metabolic encephalopathy Possibly due to abdominal pain. Appreciate GI and Gen Surgery input. Patient much better after decompressive colonoscopy. ESRD on hemodialysis. Nephrology following for HD. Likely dialysis today. Hx of lung cancer - patient underwent bronchoscopy on 05/22/2017. Outpatient follow up. Hypertension Clonidine patch as well as Vasotec IV PRN. Full code. DVT ppx - SCDs. Discharged to hospice Pt Condition on Discharge: Fair Discharge Disposition: Hospice/Med Facility Discharge Time: <= 30 minutes Discharge Instructions DIET: Follow Instructions for: As Tolerated, No Restrictions Activities you can perform: Regular-No Restrictions Maico Campbell DO Jun 09, 2017 17:37 Cande Valverde MD Jun 10, 2017 17:18
[2017-06-09] MEDS ORDERED: ENALAPRILAT 1.25 MG/ML VIAL IV PUSH PRN (18:00)
[2017-06-09 20:59] VITALS: BP 169/74; PULSE 89; RESP 20; TEMP 97.6; O2SAT 93
[2017-06-10 00:41] VITALS: BP 179/83; PULSE 81; RESP 20; TEMP 98; O2SAT 95
[2017-06-10] MEDS: LORazepam 2 MG/ML VIAL IV PUSH PRN ×2 (04:19→04:21)
[2017-06-10 04:58] VITALS: BP 205/83; PULSE 82; RESP 20; TEMP 98; O2SAT 95
[2017-06-10 06:00] VITALS: BP_SYST 205; BP_SYST 212; BP_DIAS 88; BP_DIAS 91; PULSE 82; PULSE 84; RESP 19; RESP 20; TEMP 98; O2SAT 96
[2017-06-10] MEDS: cloNIDine HCL 0.1 MG TAB PO PRN (06:21)
[2017-06-10 08:00] VITALS: BP_SYST 180; BP_SYST 187; BP_DIAS 80; BP_DIAS 81; PULSE 80; RESP 16; TEMP 99; O2SAT 99
[2017-06-10 08:10] LABS: BASOPHIL % 0.7 % (0.0-2.0); EOSINOPHIL # 0.1 TH/MM3 (0-0.4); EOSINOPHIL % 1.3 % (0.0-4.0); HEMATOCRIT 35.1 % (35.0-46.0); HEMOGLOBIN 11.3 GM/DL (11.6-15.3); LYMPH % 10.1 % (9.0-44.0); LYMPHOCYTE # 0.7 TH/MM3 (1.0-4.8); MEAN CELL VOLUME 100.1 FL (80.0-100.0); MEAN CORPUSCULAR HEMOGLOBIN 32.2 PG (27.0-34.0); MEAN CORPUSCULAR HGB CONC 32.2 % (32.0-36.0); MEAN PLATELET VOLUME 8.4 FL (7.0-11.0); MONO % 10.9 % (0.0-8.0); MONOCYTE # 0.7 TH/MM3 (0-0.9); PLATELET COUNT 128 TH/MM3 (150-450); RED BLOOD COUNT 3.51 MIL/MM3 (4.00-5.30); RED CELL DISTRIBUTION WIDTH 17.6 % (11.6-17.2); WHITE BLOOD COUNT 6.5 TH/MM3 (4.0-11.0)
[2017-06-10] MEDS: DOCUSATE SODIUM 50 MG/SENNA 8.6 MG TAB PO SCH (09:07)
[2017-06-10] MEDS: LOSARTAN 50 MG TAB PO SCH (09:07)
[2017-06-10] MEDS: SODIUM CHLORIDE 0.9% FLUSH 10 ML FLUSH IV FLUSH SCH (09:08)
--- NOTE | 2017-06-10 09:28 | HHI.PR ---
Subjective Remarks In bed does not appear in distress. Family at bedside. Patient denies any pain at this time. No nausea or vomiting no diarrhea or constipation. Diet was advanced and she is tolerating clears. Objective Vitals Vital Signs Date Time Temp Pulse Resp B/P (MAP) Pulse Ox O2 Delivery O2 Flow Rate FiO2 06/10/17 08:00 99.0 80 16 180/81 (114) 99 187/80 (115) 06/10/17 06:00 98.0 82 20 212/88 (129) 96 06/10/17 04:58 98.0 82 20 205/83 (123) 95 06/10/17 00:41 98.0 81 20 179/83 (115) 95 06/09/17 20:59 97.6 89 20 169/74 (105) 93 06/09/17 16:07 98.4 89 22 233/95 (141) 97 I/O 06/09/17 06/09/17 06/09/17 06/10/17 06/10/17 06/10/17 07:00 15:00 23:00 07:00 15:00 23:00 Output Total 1250 ml Balance -1250 ml Output Urine Total 250 ml Hemodialysis 1000 ml # Bowel Movements 0 Result Diagram: 06/10/17 0759 06/07/1745 Imaging Last Impressions Abdomen X-Ray 06/09/17 06 Signed Impressions: Service Date/Time: Friday, June 09, 2017 06:25 - CONCLUSION: 1. Mild ileus. No obstruction or free air. Sebastien Hastings MD Head CT 06/07/17609 Signed Impressions: Service Date/Time: Wednesday, June 07, 2017 09:38 - CONCLUSION: 1. No acute hemorrhage or mass effect. 2. Suboptimal study secondary to motion artifact. Hussain Zamorano MD Chest X-Ray 06/07/17609 Signed Impressions: Service Date/Time: Wednesday, June 07, 2017 06:23 - CONCLUSION: 1. Multifocal lung consolidation similar to June 06. Sebastien Hastings MD Abdomen/Pelvis CT 06/07/17609 Signed Impressions: Service Date/Time: Wednesday, June 07, 2017 09:41 - CONCLUSION: 1. Livingston catheter in place with the balloon just below the bladder base. There is a moderate amount of urine in the bladder which is otherwise unremarkable. This could be advanced. 2. Nonspecific bowel gas pattern with moderate to large amount of stool in distal colon which could indicate constipation. Findings may represent ileus and/or gastroenteritis. 3. Small bilateral pleural effusions. Hussain Zamorano MD Objective Remarks GENERAL: Alert, does not answer any question, moaning in pain. CARDIOVASCULAR: Regular rate and rhythm without murmurs, gallops, or rubs. RESPIRATORY: Breath sounds equal bilaterally. No accessory muscle use. GASTROINTESTINAL: Abdomen soft, non-tender, nondistended. MUSCULOSKELETAL: No cyanosis, or edema. BACK: Nontender without obvious deformity. No CVA tenderness. Procedures Incomplete colonoscopy 06/08/2017 As the scope was slowly withdrawn colonic mucosa was carefully inspected the colon did not appear to be significantly dilated the colonic mucosa appeared to be healthy and pink with no obvious abnormalities there was mainly liquid stool throughout the colon but there were some solid stool in the rectum but I do not think this would amount to a fecal impaction regardless this was broken down and removed and the colon was decompressed using the scope and abdominal pressure A/P Assessment and Plan Ms. Calderon is an 82 year old female with a history of ESRD, COPD who presented back to the hospital within 24 hour of discharge due to abdominal pain and altered mental status. Acute metabolic encephalopathy Possibly due to abdominal pain. Appreciate GI and Gen Surgery input. Patient much better after decompressive colonoscopy. ESRD on hemodialysis. Nephrology following for HD. Likely dialysis today. Hx of lung cancer - patient underwent bronchoscopy on 05/22/2017. Outpatient follow up. Hypertension Clonidine patch as well as Vasotec IV PRN. Full code. DVT ppx - SCDs. Discharged to hospice Cande Valverde MD Jun 10, 2017 09:28
--- NOTE | 2017-06-10 10:31 | HHI.NPPN ---
Subjective General Problems: Anemia Renal Failure: Chronic, End Stage Renal Disease Interval History They have decided to be discharged to hospice care center. She did have dialysis yesterday. Is much more alert today, eating and talking with family. (Milana Sandoval) Review of Systems Gastrointestinal Gastrointestinal: Abdominal Pain (Milana Sandoval) Objective Data Data Vital Signs Date Time Temp Pulse Resp B/P (MAP) Pulse Ox O2 Delivery O2 Flow Rate FiO2 06/10/17 08:00 99.0 80 16 180/81 (114) 99 187/80 (115) 06/10/17 06:00 98.0 82 20 212/88 (129) 96 06/10/17 04:58 98.0 82 20 205/83 (123) 95 06/10/17 00:41 98.0 81 20 179/83 (115) 95 06/09/17 20:59 97.6 89 20 169/74 (105) 93 06/09/17 16:07 98.4 89 22 233/95 (141) 97 (Milana Sandoval) -: 06/10/17 0759 06/07/17 0645 Physical Exam General Appearance: Sleeping, Malnourished Appearance Remarks appears chronically ill facial skin with erythema, shearing (Milana Sandoval) Eyes Eye Exam: Pupils Equal, Pupils Reactive (Milana Sandoval) Pulmonary Resp Exam: No Distress, Decreased Bases (Milana Sandoval) Cardiology CV Exam: Regular, Normal Sinus Rhythm (Milana Sandoval) Gastrointestinal/Abdomen GI Exam: Bowel Sounds Present, Positive Bowel Movement, Distended (Milana Sandoval) Musculoskeletal MS Exam: Joints Intact, Atrophy, Unable to Ambulate (Milana Sandoval) Integumentary Skin Exam: Warm, Dry, Intact (Milana Sandoval) Extremeties Extremities Exam: No Edema, Pedal Pulses Palpable (Milana Sandoval) Neurologic Neuro Exam: Obtunded (Milana Sandoval) VTE Prophylaxis Device: SCDs (Milana Sandoval) Assessment/Plan Discussed Condition With: Spouse Assessment Summary: Anemia of CKD, Hypertension, End Stage Renal Disease Problem List: (1) End stage renal disease on dialysis ICD Codes: N18.6 - End stage renal disease; Z99.2 - Dependence on renal dialysis Status: Chronic Plan: HD is normally on TTS, had 1L UF yesterday The family still is requesting dialysis services. Outpatient arrangements exist TTS in [facility]. High protein diet encouraged if able to eat AVF is patent, protect that extremity Phosphorus is low most likely due to poor nutritional intake. Dialysis may prolong her suffering; in addition she may not be able to tolerate given overall health condition. (2) Pain, abdominal ICD Codes: R10.9 - Unspecified abdominal pain Plan: Improved it was thought to be due to constipation, s/p decompressive colonoscopy and GoLytely (3) Small cell lung cancer ICD Codes: C34.90 - Malignant neoplasm of unspecified part of unspecified bronchus or lung Status: Acute Plan: Currently not undergoing treatment To go with hospice, she is DNR (4) HTN (hypertension) ICD Codes: I10 - Essential (primary) hypertension Status: Acute Plan: Resume home medications, titrate as needed (5) PNA (pneumonia) ICD Codes: J18.9 - Pneumonia, unspecified organism Status: Acute Plan: CXR showing consolidation Given Zithromax and Rocephin (Milana Sandoval) Plan patient was seen and examined. Agree with above assessment and plan. Patient has decided to go to hospice. (Gt Trejo MD) Problem Qualifiers (1) PNA (pneumonia): Qualified Codes: J18.9 - Pneumonia, unspecified organism Milana Sandoval Jun 10, 2017 10:31 Gt Trejo MD Jun 10, 2017 14:55
--- NOTE | 2017-06-10 14:21 | HHI.GIFU ---
Subjective Remarks Patient laying in the bed drowsy but understands and arouses to a few simple questions Patient has her dog in the bed with her and does recognize that she is they are 2 family members present Currently patient appears comfortable, but does have some increased bloating to her abdomen again (Leyla Leonard) Objective Vitals I&O Vital Signs Date Time Temp Pulse Resp B/P (MAP) Pulse Ox O2 Delivery O2 Flow Rate FiO2 06/10/17 08:00 99.0 80 16 180/81 (114) 99 187/80 (115) 06/10/17 06:00 98.0 82 20 212/88 (129) 96 06/10/17 04:58 98.0 82 20 205/83 (123) 95 06/10/17 00:41 98.0 81 20 179/83 (115) 95 06/09/17 20:59 97.6 89 20 169/74 (105) 93 06/09/17 16:07 98.4 89 22 233/95 (141) 97 I/O 06/09/17 06/09/17 06/09/17 06/10/17 06/10/17 06/10/17 07:00 15:00 23:00 07:00 15:00 23:00 Output Total 1250 ml Balance -1250 ml Output Urine Total 250 ml Hemodialysis 1000 ml # Bowel Movements 0 Laboratory Laboratory Tests Test 06/10/17 07:59 White Blood Count 6.5 Red Blood Count 3.51 Hemoglobin 11.3 Hematocrit 35.1 Mean Corpuscular Volume 100.1 Mean Corpuscular Hemoglobin 32.2 Mean Corpuscular Hemoglobin Concent 32.2 Red Cell Distribution Width 17.6 Platelet Count 128 Mean Platelet Volume 8.4 Neutrophils (%) (Auto) 77.0 Lymphocytes (%) (Auto) 10.1 Monocytes (%) (Auto) 10.9 Eosinophils (%) (Auto) 1.3 Basophils (%) (Auto) 0.7 Neutrophils # (Auto) 5.0 Lymphocytes # (Auto) 0.7 Monocytes # (Auto) 0.7 Eosinophils # (Auto) 0.1 Basophils # (Auto) 0.0 CBC Comment DIFF FINAL Differential Comment Date/Time Source Procedure Growth Status 06/07/17 06:50 Blood Peripheral Aerobic Blood Culture - Preliminary NO GROWTH IN 3 DAYS Resulted 06/07/17 06:50 Blood Peripheral Anaerobic Blood Culture - Preliminary NO GROWTH IN 3 DAYS Resulted Physical Exam HEENT: normocephalic; atraumatic, Mild erythema forehead and right cheek mild improvement NECK: Neck is supple, CHEST: no shortness of breath CARDIAC: S1-S2, regular ABDOMEN: Soft, moderate bloating, increased from previous assessment 24 hours ago EXTREMITIES: No lower extremity edema. SKIN: Pale thin skin turgor no rash; no jaundice. EDUCATION TECHNICIAN: Answering simple questions appropriately, drowsy but does respond (Leyla Leonard) Assessment and Plan Plan ASSESSMENT - abd pain - could be 2/2 constipation , CT showed stool distal colon and ileus vs gastroenteritis EGD colonoscopy 2016 unremarkable. 06/08/17, unable to tolerate Golytely. Spoke with GELA Mckinney and Hospitalist Dr. Campbell today,. Abdominal distention. HGB 12.1, WBC count, 11.2., Dr. Araujo in for surgical evaluation. No surgical plans for now, will await GI follow-up for now Spoke with family members who states that her usual status is up ambulatory and takes care of herself. Patient was recently discharged from hospital and showed back up 24 hours later with distended abdomen. CT scan shows large amount of stool 06/09/2017, patient is status post, decompressive sigmoidoscopy. Fecal impaction done around the rectal area was disimpacted and decompressed. KUB today, shows mild ileus but no obstruction. No obvious abdominal pain today and according to family members her abdomen appears to be back to her baseline at home. Supportive care to family. According to family members she is going to hemodialysis today Patient is much more comfortable today mildly drowsy but is responding to simple verbal stimuli. Multiple family members in the room. Mild ileus, will continue to monitor, maintain clear liquids for now patient currently end-stage renal disease on hemodialysis, hemoglobin on this admission was 12.1. We will continue to monitor 06/10/2017 patient's family plans to meet with hospice at 11 PM the same. Plan is to focus on patient's comfort without further aggressive measures. Supportive care to patient and family PLAN - Supportive care pt seen by myself and Dr Izaguirre and this note is on his behalf (Leyla Leonard) Physician Comments Patient seen and examined Agree with above Continue with current supportive care Monitor labs (Isaac Izaguirre MD) Leyla Leonard Jun 10, 2017 14:21 Isaac Izaguirre MD Jun 10, 2017 21:35
[2017-06-11] MEDS ORDERED: LACTULOSE SYRUP 20 GM/30 ML CUP PO SCH (09:00)
[2017-06-16] MEDS ORDERED: REMOVE OLD CATAPRES (CLONIDINE) PATCH T-DERMAL SCH (13:00)
== END 2017-06-10 11:32 | disposition hospice, home (50) | DRG 70 ==
LOC: NEPE 05:57 → NEDA 10:14 → N05A 15:17
PROVIDERS: ADMIT Hospitalist; ATTEND Hospitalist
PROC: 0DJD8ZZ Inspection of Lower Intestinal Tract, Via Natural or Artificial Opening Endoscopic (ICD-10-PCS; principal; 2017-06-08 15:15)
PROC: 5A1D70Z Performance of Urinary Filtration, Intermittent, Less than 6 Hours Per Day (ICD-10-PCS; 2017-06-09)
DX: G93.41 Metabolic encephalopathy (principal); J18.9 Pneumonia, unspecified organism; I13.2 Hypertensive heart and chronic kidney disease with heart failure and with stage 5 chronic kidney disease, or end stage renal disease; J44.0 Chronic obstructive pulmonary disease with (acute) lower respiratory infection; N18.6 End stage renal disease; E11.22 Type 2 diabetes mellitus with diabetic chronic kidney disease; C34.90 Malignant neoplasm of unspecified part of unspecified bronchus or lung; K56.7 Ileus, unspecified; D63.1 Anemia in chronic kidney disease; I50.9 Heart failure, unspecified; Z90.49 Acquired absence of other specified parts of digestive tract; R10.9 Unspecified abdominal pain; Z99.2 Dependence on renal dialysis; Z85.118 Personal history of other malignant neoplasm of bronchus and lung; R41.82 Altered mental status, unspecified; K21.9 Gastro-esophageal reflux disease without esophagitis; E03.9 Hypothyroidism, unspecified; Z85.828 Personal history of other malignant neoplasm of skin; Z88.8 Allergy status to other drugs, medicaments and biological substances; Z88.3 Allergy status to other anti-infective agents; K56.41 Fecal impaction; E78.00 Pure hypercholesterolemia, unspecified; E78.5 Hyperlipidemia, unspecified; W19.XXXA Unspecified fall, initial encounter; Y92.002 Bathroom of unspecified non-institutional (private) residence as the place of occurrence of the external cause; Z66 Do not resuscitate; Z87.891 Personal history of nicotine dependence; Z92.3 Personal history of irradiation; F41.9 Anxiety disorder, unspecified; F32.9 Major depressive disorder, single episode, unspecified; J44.9 Chronic obstructive pulmonary disease, unspecified; M19.90 Unspecified osteoarthritis, unspecified site; Z79.82 Long term (current) use of aspirin; Z99.81 Dependence on supplemental oxygen
CPT/HCPCS: 51702; 70450; 71045; 74018; 74176; 80053; 81001; 82550; 83605; 83690; 83735; 84100; 84443; 84484; 85025; 85610; 85730; 87040; 90935; 96374; 96375; 96376; J0456; J0696; J1170; J1644; J2060; J2250; J2270; J2405; J7030; J7050